=== PATIENT | male | born 1945 ===

== ENCOUNTER → 2020-09-09 14:36 | Outpatient (BNVA) | payer OTHER, SELFPAY | PROVIDERS: PCP Internal Medicine; Visit Provider Urology | DX: Z76.89 Persons encountering health services in other specified circumstances (principal) ==

== ENCOUNTER 2021-10-02 10:53 | Outpatient (REF) | payer OTHER, SELFPAY ==
[2021-10-02 13:45] LABS: Prostate Specific Antigen 3.33 ng/mL (<0.05-4.0)
== END 2021-10-02 10:54 | disposition home or self-care (01) ==
LOC: HO.HMGCLDS 10:53
PROVIDERS: PCP Internal Medicine; Visit Provider Urology
DX: R97.20 Elevated prostate specific antigen [PSA] (principal); Z12.5 Encounter for screening for malignant neoplasm of prostate
CPT/HCPCS: 36415; 84153

== ENCOUNTER 2023-11-10 12:59 | Outpatient (AMB) | payer OTHER, SELFPAY ==
--- NOTE | 2023-11-10 13:16 | A.OFFVIS_ITS ---
Intake Intake Visit Reasons: Elevated PSA/BPH(3.89) (Confirmed) Intake Note: Patient presents today for a follow-up Meds- Finasteride, Sildenafil Allergies to Antibiotic- No Known Allergies Blood Thinner- None Post Void Residual: >404ml Patient Symptoms: Patient does not feel the urgency to pee, eventhough he has full bladder. Animal Control Officer Required: No Accompanied by: Self / Same As Patient Allergies lisinopril Allergy (Unknown, Verified 11/10/23 13:29) Unknown metformin Allergy (Unknown, Verified 11/10/23 13:29) Unknown nifedipine Allergy (Unknown, Verified 11/10/23 13:29) Unknown HPI HPI Comments History of Present Illness Details Hao is a pleasant male. He is a patient of Dr Dong Darnell. Seen for the following urologic conditions - lower urinary tract symptoms - elevated PSA Twelve month review BPH and PSA Prior elevated PSA fallen with finasteride High residual today 400 cc Trial bethanechol with follow-up cystoscopy feels he is getting empty Longstanding diabetic since age 52 Elevated PSA/Abnormal VINCENT: He presents for further evaluation of elevated PSA. Prior management is medication with 5AR - stopped secondary to concern regarding libido Laboratory investigations include 07/29 Done at [place] , a total PSA evaluation 10 09/29 6.7 25%, 11/27 4.4 11/27 US - 80gm prostate 120cc residual, 06/29 3.4 - 07/31 3.2 Indiviudalized Prostate Cancer Risk Calculator >10% high risk. Symptoms include 09/29 , incomplete emptying, weak stream, nocturia, x 3, and are worsening 12/28 , incomplete emptying, weak stream, nocturia, and are improving. Overall symptoms are mild. Associated conditions diabetes Yes dyslipidemia Yes dysuria No erectile dysfunction Yes hematuria No hypertension No prostatitis No renal insufficieny No urinary retention No urinary tract infections No Therapeutic plan will be continued surveillance - yearly PSA review. Review of Systems Const Denies chills and Denies fever(s) Card Reports no additional complaints and Denies syncope Resp Denies cough GI Denies abdominal pain and Denies heartburn Reports as per HPI and Denies change in libido Neuro Denies syncope Psych Denies change in libido Endo Denies change in libido Physical Exam Const General: cooperative, healthy appearing, comfortable and no acute distress Orientation/consciousness: patient oriented x3 HEENT Face and sinus: Yes normal facial exam Mouth: moist mucous membranes Neck Neck: Yes normal visual inspection, Yes full ROM and Yes trachea midline Chest Chest palpation & inspection: normal inspection of the chest Resp Effort & Inspection: normal respiratory effort, able to speak in complete sentences and no respiratory distress GI Inspection: Yes normal to inspection Back/Spine/Pelvis Cervical Spine: normal cervical lordosis Thoracic/Lumbar Spine: thoracic and lumbar spine normal to inspection Skin General skin exam: no rashes or lesions noted Neuro General: patient oriented x3, gait normal, tone normal and moves all extremities Extrem General: Yes normal to inspection and Yes capillary refill normal Office Procedures Post Void Residual Post Residual Void Post Void Residual (PVR): 404 [id number]-Blhq Void Residual by ultrasound Assessment & Plan Assessment & Plan (1) Elevated PSA: Code(s): R97.20 - Elevated prostate specific antigen [PSA] (2) Incomplete emptying of bladder due to benign prostatic hyperplasia: Code(s): N40.1 - Benign prostatic hyperplasia with lower urinary tract symptoms; R33.9 - Retention of urine, unspecified Plan Trial bethanechol Follow-up cysto with PVR Orders: Orders AMB Post Void Residual by ultrasound Today R33.9 - Retention of urine, unspecified Medications: New bethanechol chloride 50 mg PO BID 30 days 60 tabs 1RF N39.0 - Urinary tract infection, site not specified, N40.1 - Benign prostatic hyperplasia with lower urinary tract symptoms, R33.9 - Retention of urine, unspecified Patient Instructions: Imaging studies, laboratory and physical exam results were discussed and reviewed in detail. No major barriers to patient understanding were identified. An opportunity to ask questions regarding the treatment plan was provided. All questions were answered. The patient expressed understanding and agreement with the above treatment plan. The patient is aware they should contact our office by phone for worsening of their current condition or the appearance of new urologic symptoms. Compliance is encouraged with any medications and followup testing that is ordered. It is a privilege to participate in the urologic care of your patient. If you have any questions or concerns regarding treatment for the above conditions, or other urologic issues, please do not hesitate to contact me. The office telephone contact is [phone]. This note is constructed using voice recognition software. While every effort has been made to ensure accuracy game show host errors may have been included. Yours sincerely, Dr Mayank Mccurdy MD, [facility] - Urology Providers of Expert, Compassionate Care for the Genitourinary System Coding Level of Care Code Est Pt Level 4 (15607) Diagnoses Elevated PSA R97.20 Incomplete emptying of bladder due to benign prostatic hyperplasia N40.1; R33.9 CPT Codes Post Residual Void - PVR CPT Code: 98439-Jdmf Void Residual by ultrasound ([id number])
== END 2023-11-10 13:38 | disposition home or self-care (01) ==
PROVIDERS: PCP Internal Medicine; Referring Provider Internal Medicine; Visit Provider Urology
DX: R97.20 Elevated prostate specific antigen [PSA] (principal); N40.1 Benign prostatic hyperplasia with lower urinary tract symptoms; R33.9 Retention of urine, unspecified
CPT/HCPCS: 99214

== ENCOUNTER → 2023-11-10 12:59 | Outpatient (BNVA) | payer OTHER, SELFPAY | PROVIDERS: PCP Internal Medicine; Visit Provider Urology | DX: N40.1 Benign prostatic hyperplasia with lower urinary tract symptoms (principal); R33.9 Retention of urine, unspecified; R97.20 Elevated prostate specific antigen [PSA] | CPT/HCPCS: 51798; 99212 ==

== ENCOUNTER 2024-01-11 09:50 | Outpatient (AMB) | payer OTHER, SELFPAY ==
--- NOTE | 2024-01-11 09:57 | A.OFFVIS_ITS ---
Intake Visit Reasons: cysto/PVR Intake Note: Patient is Present for Cystoscopy Urology Med: Finasteride, Bethanechol Antibiotic Allergy:none Blood Thinner: None URO- G Disposable Cystoscope lot: [id number] exp:07/20/26 Last PVR: 404 Todays: 291 Allergies lisinopril Allergy (Unknown, Verified 11/10/23 13:29) Unknown metformin Allergy (Unknown, Verified 11/10/23 13:29) Unknown nifedipine Allergy (Unknown, Verified 11/10/23 13:29) Unknown Medication List - Last Reconciled 01/11/24 by Mayank Mccurdy MD amlodipine 2.5 mg PO DAILY bethanechol chloride 50 mg PO BID 30 days finasteride 5 mg PO DAILY fluoxetine 20 mg PO DAILY fluticasone propionate 50 mcg/actuation sprays intranasal hydrochlorothiazide 25 mg PO DAILY insulin glargine units subcut insulin glargine units subcut lifitegrast 5% 1 drp ophthalmic (eye) BID pen needle, diabetic As directed prednisolone acetate 1% 1 drp ophthalmic (eye) QID semaglutide mg subcut sildenafil mg PO valsartan 320 mg PO DAILY HPI Comments Details: Hao is a pleasant male. He is a patient of Dr Rodrigez. Seen for the following urologic conditions - lower urinary tract symptoms - elevated PSA Cystoscopy following initiation of bethanechol PVR has dropped from over 400 to under 300 He thinks bethanechol has improved emptying Trial bethanechol with follow-up cystoscopy feels he is getting empty Longstanding diabetic since age 52 Elevated PSA/Abnormal VINCENT: He presents for further evaluation of elevated PSA. Prior management is medication with 5AR - stopped secondary to concern regarding libido Laboratory investigations include 07/29 Done at [place] , a total PSA evaluation 09/29 6.7 25%, 11/27 4.4 11/27 US - 80gm prostate 120cc residual, 06/29 3.4 - 07/31 3.2 Indiviudalized Prostate Cancer Risk Calculator >10% high risk. Symptoms include 09/29 , incomplete emptying, weak stream, nocturia, x 3, and are worsening 12/28 , incomplete emptying, weak stream, nocturia, and are improving. Overall symptoms are mild. Associated conditions diabetes Yes dyslipidemia Yes dysuria No erectile dysfunction Yes hematuria No hypertension No prostatitis No renal insufficieny No urinary retention No urinary tract infections No Therapeutic plan will be continued surveillance - yearly PSA review. Review of Systems Const Denies chills and Denies fever(s) Card Reports no additional complaints and Denies syncope Resp Denies cough GI Denies abdominal pain and Denies heartburn Reports as per HPI and Denies change in libido Neuro Denies syncope Psych Denies change in libido Endo Denies change in libido Physical Exam Const General: cooperative, healthy appearing, comfortable and no acute distress Orientation/consciousness: patient oriented x3 HEENT Face and sinus: Yes normal facial exam Mouth: moist mucous membranes Neck Neck: Yes normal visual inspection, Yes full ROM and Yes trachea midline Chest Chest palpation & inspection: normal inspection of the chest Resp Effort & Inspection: normal respiratory effort, able to speak in complete sentences and no respiratory distress GI Inspection: Yes normal to inspection Back/Spine/Pelvis Cervical Spine: normal cervical lordosis Thoracic/Lumbar Spine: thoracic and lumbar spine normal to inspection Skin General skin exam: no rashes or lesions noted Neuro General: patient oriented x3, gait normal, tone normal and moves all extremities Extrem General: Yes normal to inspection and Yes capillary refill normal Office Procedures Cystoscopy Consent Discussed risk and benefit or proposed procedure with the patient. Information consent for procedure given to the patient. Discussed technical aspects, risks, benefits and alternatives in full. Addressed all of the patient's questions and concerns regarding the procedure. The patient demonstrated knowledge and understanding. They wish to proceed with this procedure. Preparation The patient was prepped in the usual manner. A elastic attacher overlock was present and in the room. Genitalia was prepped with betadine solution in a sterile manner. Lidocaine Jelly 2% was placed into the urethra and 16Fr flexible Olympus cystoscope was inserted into the meatus after adequate lubrication. Procedure Cystoscopy performed using a disposable Urovue digital 16 English cystoscope. Meatus uncircumcised Urethra anterior and posterior within normal Prostatic Urethra trilobar hypertrophy Bladder examination with retroflexion of cystoscope Bladder Orifices normal shape and position Bladder Capacity large Trabeculations grade 2 Cellule Formation yes Diverticulum Formation - Mucosal Erythema - Bladder Tumor - 43321-[id number] DISPOSABLE SCOPE URO-G FLEXIBLE SCOPE Procedure code (CPT) selection complete Post Void Residual Post Residual Void Post Void Residual (PVR): 291 [id number] Void Residual by ultrasound Office Meds lidocaine HCl 2 % mucosal jelly in applicator Performing Provider: Mayank Mccurdy MD Performing Location: [facility] Administered by: Jacqueline Groves RN on 01/11/24 10:17 Dose Route Admin Location Dispensed Lot Number Expiration Date [employer] 10 mL intra-urethral 10 mL nitrofurantoin monohydrate/macrocrystals 100 mg capsule Performing Provider: Mayank Mccurdy MD Performing Location: [facility] Administered by: Jacqueline Groves RN on 01/11/24 10:17 Dose Route Admin Location Dispensed Lot Number Expiration Date [employer] 100 mg PO 1 cap naproxen 500 mg tablet Performing Provider: Mayank Mccurdy MD Performing Location: [facility] Administered by: Jacqueline Groves RN on 01/11/24 10:17 Dose Route Admin Location Dispensed Lot Number Expiration Date [employer] 500 mg PO 1 tab Results AMB Urinalysis, Automated UA Leukoctes 70 Tejal/uL Last Edit by VIVIAN Chen on 01/11/24 10:14 UA Nitrite Negative Last Edit by Megha Arango [facility] on 01/11/24 10:14 UA Urobilinogen 0.2 mg/dL Last Edit by VIVIAN Chen on 01/11/24 10:1 4 UA Protein 0 mg/dL Last Edit by Megha Arango [facility] on 01/11/24 10:14 UA pH 6.0 Last Edit by Megha Arango [employer] on 01/11/24 10:14 UA Blood 0 Josue/uL Last Edit by Megha Arango [facility] on 01/11/24 10:14 UA Specific [place] 1.015 Last Edit by Megha Arango [facility] on 01/11/24 10: 14 UA Ketone Negative Last Edit by VIVIAN Chen on 01/11/24 10:14 UA Bilirubin 0 mg/dL Last Edit by Megha Arango [facility] on 01/11/24 10:14 UA Glucose 0 mg/dL Last Edit by RAYMOND Chen on 01/11/24 10:14 Results Reviewed Results Reviewed: Laboratory Last Values Urine pH (Auto) 6.0 01/11/24 10:10 Specific [place] (Auto) 1.015 01/11/24 10:10 Urine Protein (Auto) 0 mg/dL 01/11/24 10:10 Glucose (UA)(Auto) 0 mg/dL 01/11/24 10:10 Urine Ketones (Auto) Negative 01/11/24 10:10 Urine Blood (Auto) 0 Josue/uL 01/11/24 10:10 Urine Nitrite (Auto) Negative 01/11/24 10:10 Urine Bilirubin (Auto) 0 mg/dL 01/11/24 10:10 Urine Urobilinogen (Auto) 0.2 mg/dL 01/11/24 10:10 Leukocyte Esterase (Auto) 70 Tejal/uL 01/11/24 10:10 Assessment & Plan Assessment & Plan (1) Incomplete emptying of bladder due to benign prostatic hyperplasia: Code(s): N40.1 - Benign prostatic hyperplasia with lower urinary tract symptoms; R33.9 - Retention of urine, unspecified Category: Medical (2) BPH w urinary obs/LUTS: Code(s): N40.1 - Benign prostatic hyperplasia with lower urinary tract symptoms; N13.8 - Other obstructive and reflux uropathy Category: Medical (3) Weak urinary stream: Code(s): R39.12 - Poor urinary stream Category: Medical Plan We discussed the nature of the decision and reasonable options for performing a prostate intervention. Interventions include TURP, GreenLight laser enucleation of the prostate, GreenLight laser ablation of the prostate, transurethral incision of the prostate, and I-Tend prostate procedure. Options such as medical therapy were discussed. The relative uncertainties and benefits related to each alternate procedure were adequately discussed. General surgical risks including, but not limited to, pain, bleeding, infection, myocardial infarction, pulmonary embolus, deep vein thrombosis and cerebrovascular accident which may result in further hospitalization were discussed. Full disclosure of the procedure as well as all major risks, benefits and complications were discussed including but not limited to damage to the urethra or bladder neck, recurrent BPH, retrograde ejaculation, bladder infection, urge, de patricio frequency, incomplete emptying, dysuria, remote chance of erectile dysfunction, epididymitis, and meatal stenosis. The success rate of the procedure was discussed. Success of the procedure in the short-term does not necessarily guarantee that long-term success will be maintained. Suitable follow up will need to be maintained. The patient showed understanding of discussion. An opportunity was provided for questions to be answered and wishes to proceed with the following procedure. - GreenLight laser prostate Orders: Orders AMB Urinalysis Automated Today Z13.9 - Encounter for screening, unspecified AMB Cystoscopy Today N40.1 - Benign prostatic hyperplasia with lower urinary tract symptoms, R33.9 - Retention of urine, unspecified AMB Post Void Residual by ultrasound Today N40.1 - Benign prostatic hyperplasia with lower urinary tract symptoms, R33.9 - Retention of urine, unspecified US bladder Today N40.1 - Benign prostatic hyperplasia with lower urinary tract symptoms, R33.9 - Retention of urine, unspecified, R39.12 - Poor urinary stream Medications: Changed From bethanechol chloride 50 mg PO BID 30 days 60 tabs 1RF N39.0 - Urinary tract infection, site not specified, N40.1 - Benign prostatic hyperplasia with lower urinary tract symptoms, R33.9 - Retention of urine, unspecified To bethanechol chloride 50 mg PO BID 90 days 180 tabs 1RF N39.0 - Urinary tract infection, site not specified, N40.1 - Benign prostatic hyperplasia with lower urinary tract symptoms, R33.9 - Retention of urine, unspecified Patient Instructions: Imaging studies, laboratory and physical exam results were discussed and reviewed in detail. No major barriers to patient understanding were identified. An opportunity to ask questions regarding the treatment plan was provided. All questions were answered. The patient expressed understanding and agreement with the above treatment plan. The patient is aware they should contact our office by phone for worsening of their current condition or the appearance of new urologic symptoms. Compliance is encouraged with any medications and followup testing that is ordered. It is a privilege to participate in the urologic care of your patient. If you have any questions or concerns regarding treatment for the above conditions, or other urologic issues, please do not hesitate to contact me. The office telephone contact is [phone]. This note is constructed using voice recognition software. While every effort has been made to ensure accuracy boiler installer errors may have been included. Yours sincerely, Dr Mayank Mccurdy MD, [facility] - Urology Providers of Expert, Compassionate Care for the Genitourinary System Coding Level of Care Code Est Pt Level 4 (93704) Diagnoses Incomplete emptying of bladder due to benign prostatic hyperplasia N40.1; R33.9 BPH w urinary obs/LUTS N40.1; N13.8 Weak urinary stream R39.12 CPT Codes Cystoscopy - CPT: 23034-Izmqiaxdpy ([id number]) Post Residual Void - PVR CPT Code: 02875-Rcof Void Residual by ultrasound ([id number])
== END 2024-01-11 10:47 | disposition home or self-care (01) ==
PROVIDERS: PCP Internal Medicine; Visit Provider Urology
DX: N40.1 Benign prostatic hyperplasia with lower urinary tract symptoms (principal); R33.9 Retention of urine, unspecified; N13.8 Other obstructive and reflux uropathy; R39.12 Poor urinary stream; Z13.9 Encounter for screening, unspecified
CPT/HCPCS: 52000; 99213

== ENCOUNTER → 2024-01-11 09:50 | Outpatient (BNVA) | payer OTHER, SELFPAY | PROVIDERS: PCP Internal Medicine; Visit Provider Urology | DX: N40.1 Benign prostatic hyperplasia with lower urinary tract symptoms (principal); N13.8 Other obstructive and reflux uropathy; R33.8 Other retention of urine; R39.12 Poor urinary stream | CPT/HCPCS: 51798; 52000; 81003; 99212 ==

== ENCOUNTER 2024-01-30 15:13 | Outpatient (REF) | payer OTHER, SELFPAY | END 2024-01-30 15:14 | disposition home or self-care (01) | LOC: HO.US 15:13 | PROVIDERS: PCP Internal Medicine; Visit Provider Urology | DX: Z13.89 Encounter for screening for other disorder (principal) ==

== ENCOUNTER 2024-02-15 12:57 | Outpatient (REF) | payer OTHER, SELFPAY ==
--- NOTE | ~2024-02-15 | US_ITS ---
EXAMINATION: US PELVIS LIMITED (BLADDER) CLINICAL INFORMATION: Poor urinary stream. COMPARISON: Ultrasound urinary bladder 09/18/2018. TECHNIQUE: Real-time imaging of the bladder. FINDINGS: BLADDER: Well distended. Bilateral ureteral jets are demonstrated. Prevoid bladder volume is 562 mL. Postvoid bladder volume is 570 mL. There is diffuse thickening and irregularity of the bladder wall with innumerable diverticula.Complex low-level internal echoes within the bladder characteristic of debris. Prostate: Enlarged, volume 75.2 mL. US/US bladder IMPRESSION: 1. Diffuse thickening and irregularity of the bladder wall with innumerable diverticula. Complex low-level internal echoes within the bladder characteristic of debris. 2. Enlarged prostate gland. 3. Postvoid bladder volume 570 mL.
== END 2024-02-15 12:58 | disposition home or self-care (01) ==
LOC: HO.US 12:57
PROVIDERS: PCP Internal Medicine; Visit Provider Urology
DX: R39.12 Poor urinary stream (principal); N40.1 Benign prostatic hyperplasia with lower urinary tract symptoms; R33.9 Retention of urine, unspecified
CPT/HCPCS: 76857

== ENCOUNTER 2024-03-06 10:54 | Outpatient (AMB) | payer OTHER, SELFPAY ==
--- NOTE | 2024-03-06 10:54 | A.OFFVIS_ITS ---
Intake Visit Reasons: H&P Greenlight Intake Note: Patient presents as a telehealth visit for H&P Greenlight Urology Med: Finasteride, Bethanechol Antibiotic Allergy:none Blood Thinner: None Allergies lisinopril Allergy (Unknown, Verified 03/06/24 10:54) Unknown metformin Allergy (Unknown, Verified 03/06/24 10:54) Unknown nifedipine Allergy (Unknown, Verified 03/06/24 10:54) Unknown HPI Comments Details: Hao is a pleasant male. He is a patient of Dr Rodrigez. Seen for the following urologic conditions - lower urinary tract symptoms - elevated PSA Telemedicine Evaluation 15 min Consultation DoxTinybop Dinesh Video Bethanechol improved emptying Plan for prostate procedure Questions answered Elevated PSA/Abnormal VINCENT: He presents for further evaluation of elevated PSA. Prior management is medication with 5AR - stopped secondary to concern regarding libido Laboratory investigations include 07/29 Done at [place] , a total PSA sonia luation 10 09/29 6.7 25%, 11/27 4.4, 11/27 US - 80gm prostate 120cc residual, 06/29 3.4, 07/31 3.2, 10/02 3.3 Individualized Prostate Cancer Risk Calculator >10% high risk. Symptoms include 09/29 , incomplete emptying, weak stream, nocturia, x 3, and are worsening 12/28 , incomplete emptying, weak stream, nocturia, and are improving. Overall symptoms are mild. Associated conditions diabetes Yes dyslipidemia Yes dysuria No erectile dysfunction Yes Therapeutic plan will be continued surveillance - yearly PSA review. Review of Systems Const All systems reviewed & are unremarkable except as noted in HPI and below Reports no additional complaints Resp Reports no additional complaints GI Reports no additional complaints Reports as per HPI Musc Reports no additional complaints Physical Exam Telemedicine evaluation Appropriate responses Regular breathing rate and rhythm HEENT Head: Yes normal to inspection Ears: hearing grossly normal bilaterally Eyes General: appearance normal, both eyes and all related structures Neck Neck: Yes normal visual inspection Chest Chest palpation & inspection: normal inspection of the chest Resp Effort & Inspection: normal respiratory effort and able to speak in complete se ntences Telehealth Telehealth Telehealth Platform: [employer] Location of provider rendering services: practice address Location of patient: address on file Patient Identification confirmed using: Name, : Yes Telehealth method: video Patient verbally consented to treatment: Yes Patient verbally consented to billing insurance company: Yes Patient informed of any privacy concerns related to visit: Yes Minutes spent on Phone/Video with Pt.: 15 Assessment & Plan Assessment & Plan (1) Elevated PSA: Code(s): R97.20 - Elevated prostate specific antigen [PSA] Category: Medical (2) BPH w urinary obs/LUTS: Code(s): N40.1 - Benign prostatic hyperplasia with lower urinary tract symptoms; N13.8 - Other obstructive and reflux uropathy Category: Medical (3) Incomplete emptying of bladder due to benign prostatic hyperplasia: Code(s): N40.1 - Benign prostatic hyperplasia with lower urinary tract symptoms; R33.9 - Retention of urine, unspecified Category: Medical Plan Risks, benefits and alternatives to therapy were discussed. These include but are not limited to infection, bleeding, damage to local organs and tissues, need for further interventions. Anesthetic risks regarding cardiac arrhythmia, blood clots, and potential mortality were discussed. The patient understands the typical recovery time and the outpatient nature of the procedure. After consideration of these risks the patient gives full informed consent and they wish to move ahead with the procedure. Plan GreenLight laser prostatectomy Patient Instructions: Imaging studies, laboratory and physical exam results were discussed and reviewed in detail. No major barriers to patient understanding were identified. An opportunity to ask questions regarding the treatment plan was provided. All questions were answered. The patient expressed understanding and agreement with the above treatment plan. The patient is aware they should contact our office by phone for worsening of their current condition or the appearance of new urologic symptoms. Compliance is encouraged with any medications and followup testing that is ordered. It is a privilege to participate in the urologic care of your patient. If you have any questions or concerns regarding treatment for the above conditions, or other urologic issues, please do not hesitate to contact me. The office telephone contact is [phone]. This note is constructed using voice recognition software. While every effort has been made to ensure accuracy sales development manager errors may have been included. Yours sincerely, Dr Mayank Mccurdy MD, [facility] - Urology Providers of Expert, Compassionate Care for the Genitourinary System Coding Level of Care Code Tele Est Pt Level 3 (36683) Diagnoses Elevated PSA R97.20 BPH w urinary obs/LUTS N40.1; N13.8 Incomplete emptying of bladder due to benign prostatic hyperplasia N40.1; R33.9
== END 2024-03-06 13:08 | disposition home or self-care (01) ==
LOC: HO.HUSH 10:54
PROVIDERS: PCP Internal Medicine; Referring Provider Internal Medicine; Visit Provider Urology
DX: R97.20 Elevated prostate specific antigen [PSA] (principal); N40.1 Benign prostatic hyperplasia with lower urinary tract symptoms; N13.8 Other obstructive and reflux uropathy; R33.9 Retention of urine, unspecified
CPT/HCPCS: 99213

== ENCOUNTER → 2024-03-06 10:54 | Outpatient (BNVA) | payer OTHER, SELFPAY | PROVIDERS: PCP Internal Medicine; Visit Provider Urology ==

== ENCOUNTER 2024-03-25 08:31 | Day surgery (SDC) | payer OTHER, SELFPAY ==
[2024-03-20 10:50] VITALS: BP 192/96
[2024-03-21 13:05] VITALS: BMI 27.9
--- NOTE | 2024-03-21 13:26 | HO.ANESPROP2 ---
Documented by User: Dianelys Gallegos NP 03/22/24 11:46 HPI - Anesthesia Eval Consult details Narrative: 79yo M for Laser Ablation Prostate w/Green Light Follows [facility] cardiology. Per last office note 06/2023: [facility]38 bpm?noted on ZIO on 11/02/2022 at 4:43 PM, multiple pauses up to 3.4 seconds while still on BB. He was seen in the hospital with Helen 1 year ago and it was suggested that he cut back on BB and follow. He has a repeat zio which showed some possible 10 seconds CH vs 2:1. He has no cardiac sx. He has chronic?AU which is unchanged. He associates this with panic attacks and increased bp. ?No presyncope or syncope. No CP or dyspnea, no palpitations. We repeated zio off meds reviewed with EPS, some transient 2:1 and CHB during sleep felt to be sleep apnea. he is asx at this time. Anesthesia Pre-Procedure Meds Is the patient on any of the following meds?: GLP1/DPP4 and SGLT2 Inhib PMFSH Active Problems Active Problems: All Active Problems Incomplete emptying of bladder due to benign prostatic hyperplasia (Acute) Elevated PSA (Acute) Weak urinary stream (Acute) BPH w urinary obs/LUTS (Acute) Past Medical History Medical History (Updated 03/21/24 @ 13:11 by Smita Sharif RN) Vitamin D deficiency Venous insufficiency (chronic) (peripheral) Contact dermatitis Diabetes Sleep apnea Malignant neoplasm skin of nose Male erectile dysfunction, unspecified Localized swelling, mass and lump, head Hyperlipidemia GERD (gastroesophageal reflux disease) Epistaxis Depression Bradycardia BPH (benign prostatic hyperplasia) 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, second degree Actinic keratosis Anxiety Social History Social History Patient Tobacco Use Status: Former Tobacco user Use of substances other than those prescribed or required for medical reasons: No Are you DNR?: No Advance Directives: No Advance Directives Information Provided: Yes Meds Allergies Allergy/AdvReac Type Severity Reaction Status Date / Time lisinopril Allergy Unknown Unknown Verified 03/06/24 10:54 metformin Allergy Unknown Unknown Verified 03/06/24 10:54 nifedipine Allergy Unknown Unknown Verified 03/06/24 10:54 epinephrine AdvReac Intermediate Tachycardia Verified 03/25/24 10:15 Home Medications ?Medication ?Instructions ?Recorded ?Confirmed ?Last Taken ?Type fluticasone propionate 50 1 spray intranasal DAILY 09/09/20 03/25/24 Unknown History mcg/actuation nasal spray,suspension insulin glargine 100 unit/mL (3 18 unit subcut DAILY 09/09/20 03/25/24 03/24/24 History mL) subcutaneous pen lifitegrast 5 % eye drops in a 1 drp ophthalmic (eye) BID 09/09/20 03/25/24 Unknown History dropperette pen needle, diabetic 31 gauge x #50 ea 09/09/20 01/11/24 Unknown History 3/16 prednisolone acetate 1 % eye 1 drp ophthalmic (eye) QID 09/09/20 03/25/24 Unknown History drops,suspension semaglutide 0.25 mg or 0.5 mg (2 2 mg subcut QWEEK 09/09/20 03/25/24 03/18/24 History mg/1.5 mL) subcutaneous pen injector sildenafil 100 mg tablet 100 mg PO ONCE PRN Sexual Activity 09/09/20 03/25/24 Unknown History valsartan 320 mg tablet 320 mg PO DAILY 09/09/20 03/25/24 03/25/24 07:00 History chlorthalidone 25 mg tablet 25 mg PO DAILY 03/21/24 03/25/24 Unknown History clonidine HCl 0.1 mg tablet 0.1 mg PO DAILY 03/21/24 03/25/24 Unknown History insulin aspart U-100 100 unit/mL 1 sliding scale dose subcut 03/21/24 03/25/24 Unknown History (3 mL) subcutaneous pen USEASDIRECTD lorazepam 0.5 mg tablet 0.5 mg PO DAILY PRN Anxiety 03/21/24 03/25/24 Unknown History Exam Height,Weight and Vital Signs: Height 5 ft 7 in Weight 80.739 kg Pertinent Lab Results Pertinent Lab Results: CBC and BMP 10/2023 from outside facility WNL Narrative Narrative: EKG 09/2023 Ventricular Rate: 91 BPM Atrial Rate: 119 BPM QRS Duration: 90 ms Q-T Interval: 326 ms QTC Calculation(Bazett): 400 ms R [place]: -34 degrees T [place]: 74 degrees Sinus tachycardia with 2nd degree A-V block (Mobitz I) with occasional premature ventricular complexeses Left axis deviation Abnormal ECG When compared with ECG of 09-JAN-2023 11:02, Second degree AV block has replaced 1st degree A-V block Premature ventricular complexes are now Present Confirmed by ESSIE BARNES, CHRISTIANO ([id number]) on 10/15/2023 3:30:13 PM Assessment and Plan Assessment Anesthesia Assessment: Chart Reviewed Documented by User: Roland Snow MD 03/25/24 11:09 [facility] Past Medical History Medical History (Updated 03/21/24 @ 13:11 by Smita Sharif RN) Vitamin D deficiency Venous insufficiency (chronic) (peripheral) Contact dermatitis Diabetes Sleep apnea Malignant neoplasm skin of nose Male erectile dysfunction, unspecified Localized swelling, mass and lump, head Hyperlipidemia GERD (gastroesophageal reflux disease) Epistaxis Depression Bradycardia BPH (benign prostatic hyperplasia) 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, second degree Actinic keratosis Anxiety Family History Family history of problems with anesthesia: No Surgical History History of Problems with Anesthesia: No Social History Social History Patient Tobacco Use Status: Former Tobacco user Use of substances other than those prescribed or required for medical reasons: No Are you DNR?: No Advance Directives: No Advance Directives Information Provided: Yes Meds Allergies Allergy/AdvReac Type Severity Reaction Status Date / Time lisinopril Allergy Unknown Unknown Verified 03/06/24 10:54 metformin Allergy Unknown Unknown Verified 03/06/24 10:54 nifedipine Allergy Unknown Unknown Verified 03/06/24 10:54 epinephrine AdvReac Intermediate Tachycardia Verified 03/25/24 10:15 Home Medications ?Medication ?Instructions ?Recorded ?Confirmed ?Last Taken ?Type fluticasone propionate 50 1 spray intranasal DAILY 09/09/20 03/25/24 Unknown History mcg/actuation nasal spray,suspension insulin glargine 100 unit/mL (3 18 unit subcut DAILY 09/09/20 03/25/2424 History mL) subcutaneous pen lifitegrast 5 % eye drops in a 1 drp ophthalmic (eye) BID 09/09/20 03/25/24 Unknown History dropperette pen needle, diabetic 31 gauge x #50 ea 09/09/20 01/11/24 Unknown History 3/16 prednisolone acetate 1 % eye 1 drp ophthalmic (eye) QID 09/09/20 03/25/24 Unknown History drops,suspension semaglutide 0.25 mg or 0.5 mg (2 2 mg subcut QWEEK 09/09/20 03/25/24 03/18/24 History mg/1.5 mL) subcutaneous pen injector sildenafil 100 mg tablet 100 mg PO ONCE PRN Sexual Activity 09/09/20 03/25/24 Unknown History valsartan 320 mg tablet 320 mg PO DAILY 09/09/20 03/25/24 03/25/24 07:00 History chlorthalidone 25 mg tablet 25 mg PO DAILY 03/21/24 03/25/24 Unknown History clonidine HCl 0.1 mg tablet 0.1 mg PO DAILY 03/21/24 03/25/24 Unknown History insulin aspart U-100 100 unit/mL 1 sliding scale dose subcut 03/21/24 03/25/24 Unknown History (3 mL) subcutaneous pen USEASDIRECTD lorazepam 0.5 mg tablet 0.5 mg PO DAILY PRN Anxiety 03/21/24 03/25/24 Unknown History Exam Airway Mallampati Class: I TM Dist: <=3cm Neck ROM: Full Loose/Missing/Broken Teeth: No Heart: ok Lungs: ok Assessment and Plan Assessment Anesthesia Assessment: Anesthesia Plan Discussed Final Anesthetic Review Family History of Problems with Anesthesia: No History of Problems with Anesthesia: No NPO: Yes ASA Class: III Final Preanesthetic Review: No Changes in Pt Med Stat, Meds/Allgs Chart Reviewed, Consent Obtained/Reviewed and Anes Risks/Benef Reviewed Patient Risk: Intermediate Procedure Risk: Low Anesthetic Plan Anesthetic Plan: GA and Agree w/ Assess. and Plan Disposition: Standard PACU
[2024-03-25] VITALS (7 sets, daily range): BP systolic 152–211; BP diastolic 71–103; PULSE 56–90; RESP 16–23; TEMP 36.1–37.1; O2SAT 94–99; BMI 26.0
--- NOTE | 2024-03-25 10:24 | P.HPSUR_ITS ---
Pre-Procedural Eval Section A - 24 Hr Update-Section A only Date of Service: 03/25/24 The patient is an INPATIENT: No Changes since office visit: No Cold of Flu in the past 2 weeks, No New Medical Problems, No Changes in Medication and No Patient answered all questions The patient has been examined within 24 hours of the surgical procedure. The History & Physical has been completed within 30 days and I have reviewed it.: Yes Section B - Complete if H&P > 30 days Chief Complaint: Benign prostatic hyperplasia with lower urinary tr Details of Present Illness: 75 g prostate Relevant Social History: None Present Medications: see Short Stay Collaborative assessment Medical History: No relevant PMH History of Previous Operations: No relevant previous surgery Allergies: Allergies Allergy/AdvReac Type Severity Reaction Status Date / Time lisinopril Allergy Unknown Unknown Verified 03/06/24 10:54 metformin Allergy Unknown Unknown Verified 03/06/24 10:54 nifedipine Allergy Unknown Unknown Verified 03/06/24 10:54 epinephrine AdvReac Intermediate Tachycardia Verified 03/25/24 10:15 Review of Systems Sugical H&P ROS: Negative: Constitution, Cardiovascular, Respiratory, Neurologi omaira, Psychiatric, Hem-Onc, Allergic/Immunologic, Gastrointestinal, Genitourinary, Musculoskeletal, Integumentary, Endocrine and Eyes/Ears/Nose/Throat Exam Surgical H&P Exam: Normal: HEENT, Normal: Heart, Normal: Lungs, Normal: Extremities, Normal: Abdomen, Normal: Skin and Normal: Neurological Plan Diagnosis/Plan: Unchanged (Bladder outlet obstruction) I have reviewed the history and physical and performed a pertinent physical examination on my patient. No changes have occurred unless specified. Time Spent With Patient Time: Total time managing care of this patient today ____ minutes.
[2024-03-25] MEDS: Lactated Ringers 1,000 ML 100 ML IVCONT (10:44)
--- NOTE | 2024-03-25 12:06 | W.PM.OPN ---
Operative Note Operative Note Date of Service: 03/25/24 Narrative: PreOperative Diagnosis: Bladder outlet obstruction Post Operative Diagnosis: Bladder outlet obstruction Procedure: GreenLight Laser Enucleation of the prostate CPT 91076 Surgeon: Dr Mayank Mccurdy Anesthesia: General History of bladder outlet obstruction. Treated with alpha-ray and other medications. Still with symptoms. On cystoscopy in office has trilobar prostate. Recommendation for prostate procedure with laser enucleation of prostate. Risks and benefits have been discussed. Focus was placed on development of retrograde ejaculation which is a normal part of this procedure. Ultrasound 75 g prostate Procedure: After informed consent was verified the patient was brought to the operating room and placed in a supine position. Anesthesia was administered per protocol. Patient was placed in modified dorsal lithotomy position and prepped and draped in a sterile fashion. Safety pause time-out was confirmed. Antibiotics have been given. A Twenty-four Montenegrin laser cystoscope was inserted per urethra. No abnormalities were found of the anterior and bulbar urethra. The prostatic urethra shows trilobar hypertrophy The bladder was examined and both ureteric orifices were seen in their normal positions away from the area of interest. Bladder trabeculation grade 3 with cellules and small diverticula. Most prominent was right lateral lobe.. Using a GreenLight laser with settings of 80 romano incisions were made at the 5 and 7 o'clock position. The incisions were taken down from the bladder neck down to the level of the veru. These were gradually deepened in order to define the lateral aspects of the median lobe area. Once clearly defined they will also extended in the lateral directions in order to create a deep groove. The median lobe was then ablated and enucleated tissue released into the bladder with the laser power increased to 120 W. Once the median lobe area had been cleared attention was directed to the lateral lobes. Starting with the patient's left lateral lobe. First the 05:00 o'clock groove was further developed. This was moved in the lateral direction to undermine the tissue on the lateral side running from the bladder neck to the prostate apex. The ureteric orifice was used to guide incisions. Focus was then placed on the laser at the 1 o'clock position to developing a secondary groove down to the level of bladder fibers. The creation of a second deep groove defined a segment of intervening tissue similar to a slice of orange. At the apex of the prostate the 2 grooves were linked the us releasing the intervening tissue. This tissue was then removed with a combination of enucleation and ablation working from the apex toward the bladder neck. A similar procedure was repeated on the patient's right-hand side. The only differences being the position of the lateral groove at he 7 o'clock position and the secondary groove at the 11 o'clock position, Otherwise the procedure was developed in a mirror fashion. After the majority of tissue had been debulked remnant tissue was ablated with the side fire laser and the curve of the prostate followed up each side wall clearly defining the anterior remnant strip that remained between the 11 and 1 o'clock positions. In this case the anterior tissue protruded into the prostatic fossa and was partially ablated with the laser When this was had been completed debris and pieces of prostate were removed from the bladder with irrigation. Both ureteric orifices were reviewed again in shown to be patent in away from any areas of energy damage. The apical area was reviewed in any stray ooze was controlled. A 22 Montenegrin 30 cc balloon Alves catheter was placed over a stylet into the bladder. Clear efflux was obtained upon irrigation with a Charles piston syringe. 50 cc was placed in the balloon and gentle traction was placed. A snap was used to hold tension on the catheter to control bleeding during patient moved and transported. A drainage bag was placed. Once transportation is complete to the PACU the snap will be removed. The patient tolerated the procedure well, he was extubated in the operating and transferred in a stable condition to the recovery area. Total Power 199 kW Lasing time 30:19 Pathology: Prostate tissue Drains: Alves catheter
== END 2024-03-25 13:40 | disposition home or self-care (01) ==
PROVIDERS: PCP Internal Medicine; Visit Provider Urology
PROC: (CPT 52648; principal; 2024-03-25 10:30)
DX: N40.1 Benign prostatic hyperplasia with lower urinary tract symptoms (principal); N13.8 Other obstructive and reflux uropathy; R33.8 Other retention of urine; R97.20 Elevated prostate specific antigen [PSA]; N52.9 Male erectile dysfunction, unspecified; E11.9 Type 2 diabetes mellitus without complications; E78.5 Hyperlipidemia, unspecified; Z88.8 Allergy status to other drugs, medicaments and biological substances; Z79.899 Other long term (current) drug therapy
CPT/HCPCS: 52649; 88305; J1956; J2704; J3010

== ENCOUNTER → 2024-03-25 08:31 | Outpatient (BNV) | payer OTHER, SELFPAY | PROVIDERS: PCP Internal Medicine; Visit Provider Urology | DX: N40.1 Benign prostatic hyperplasia with lower urinary tract symptoms (principal) | CPT/HCPCS: 52649 ==

== ENCOUNTER → 2024-03-28 08:01 | Outpatient (BNVA) | payer OTHER, SELFPAY | PROVIDERS: PCP Internal Medicine; Visit Provider Urology | DX: N40.1 Benign prostatic hyperplasia with lower urinary tract symptoms (principal); N13.8 Other obstructive and reflux uropathy | CPT/HCPCS: 51700; 51798 ==

== ENCOUNTER 2024-05-01 13:25 | Outpatient (AMB) | payer OTHER, SELFPAY ==
--- NOTE | 2024-05-01 13:55 | MHC.OFFVIS ---
Intake Visit Reasons: Greenlight follow up(03/25) Intake Note: Patient Is Present for Post Op Follow up Procedure Done: Greenlight 03/25/24 Urology Med: Bethanechol, Finasteride Antibiotic Allergy:None Blood Thinner:none Last PVR: 291MLS PVR:98 Community Placement Worker Required: No Accompanied by: Self / Same As Patient Allergies lisinopril Allergy (Unknown, Verified 05/01/24 13:56) Unknown metformin Allergy (Unknown, Verified 05/01/24 13:56) Unknown nifedipine Allergy (Unknown, Verified 05/01/24 13:56) Unknown epinephrine Adverse Reaction (Intermediate, Verified 05/01/24 13:56) Tachycardia HPI Comments Details: Hao is a pleasant male. He is a patient of Dr Rodrigez. Seen for the following urologic conditions - lower urinary tract symptoms - elevated PSA Six week post prostate procedure PVR down under 100 cc Continue with bethanechol for 3 months GreenLight laser prostate - 04/03 May stop finasteride Continue bethanechol Three-month follow-up repeat PVR Elevated PSA/Abnormal VINCENT: He presents for further evaluation of elevated PSA. Prior management is medication with 5AR - stopped secondary to concern regarding libido Laboratory investigations include 07/29 Done at [place] , a total PSA evaluation 10 09/29 6.7 25%, 11/27 4.4, 11/27 US - 80gm prostate 120cc residual, 06/29 3.4, 07/31 3.2, 10/02 3.3 Individualized Prostate Cancer Risk Calculator >10% high risk. Symptoms include 09/29 , incomplete emptying, weak stream, nocturia, x 3, and are worsening 12/28 , incomplete emptying, weak stream, nocturia, and are improving. Overall symptoms are mild. Associated conditions diabetes Yes dyslipidemia Yes dysuria No erectile dysfunction Yes Therapeutic plan will be continued surveillance - yearly PSA review. 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, second degree Actinic keratosis Anxiety Social History Patient Tobacco Use Status: Former Tobacco user Review of Systems Const Denies chills and Denies fever(s) Card Reports no additional complaints and Denies syncope Resp Denies cough GI Denies abdominal pain and Denies heartburn Reports as per HPI and Denies change in libido Neuro Denies syncope Psych Denies change in libido Endo Denies change in libido Physical Exam Const General: cooperative, healthy appearing, comfortable and no acute distress Orientation/consciousness: patient oriented x3 HEENT Face and sinus: Yes normal facial exam Mouth: moist mucous membranes Neck Neck: Yes normal visual inspection, Yes full ROM and Yes trachea midline Chest Chest palpation & inspection: normal inspection of the chest Resp Effort & Inspection: normal respiratory effort, able to speak in complete sentences and no respiratory distress GI Inspection: Yes normal to inspection Back/Spine/Pelvis Cervical Spine: normal cervical lordosis Thoracic/Lumbar Spine: thoracic and lumbar spine normal to inspection Skin General skin exam: no rashes or lesions noted Neuro General: patient oriented x3, gait normal, tone normal and moves all extremities Extrem General: Yes normal to inspection and Yes capillary refill normal Office Procedures Post Void Residual Post Residual Void Post Void Residual (PVR): 98 [id number] Void Residual by ultrasound Assessment & Plan Assessment & Plan (1) Incomplete emptying of bladder due to benign prostatic hyperplasia: Code(s): N40.1 - Benign prostatic hyperplasia with lower urinary tract symptoms; R33.9 - Retention of urine, unspecified Category: Medical (2) Elevated PSA: Code(s): R97.20 - Elevated prostate specific antigen [PSA] Category: Medical Plan Three-month follow-up PSA office in PVR Orders: Orders AMB Post Void Residual by ultrasound Today N13.8 - Other obstructive and reflux uropathy, N40.1 - Benign prostatic hyperplasia with lower urinary tract symptoms Prostate Specific Antigen 3 Months R97.20 - Elevated prostate specific antigen [PSA] Patient Instructions: Imaging studies, laboratory and physical exam results were discussed and reviewed in detail. No major barriers to patient understanding were identified. An opportunity to ask questions regarding the treatment plan was provided. All questions were answered. The patient expressed understanding and agreement with the above treatment plan. The patient is aware they should contact our office by phone for worsening of their current condition or the appearance of new urologic symptoms. Compliance is encouraged with any medications and followup testing that is ordered. It is a privilege to participate in the urologic care of your patient. If you have any questions or concerns regarding treatment for the above conditions, or other urologic issues, please do not hesitate to contact me. The office telephone contact is [phone]. This note is constructed using voice recognition software. While every effort has been made to ensure accuracy brake drum molder errors may have been included. Yours sincerely, Dr Mayank Mccurdy MD, [facility] - Urology Providers of Expert, Compassionate Care for the Genitourinary System Coding Level of Care Code Est Pt Level 3 (47921) Diagnoses Incomplete emptying of bladder due to benign prostatic hyperplasia N40.1; R33.9 Elevated PSA R97.20 CPT Codes Post Residual Void - PVR CPT Code: 09521-Kerf Void Residual by ultrasound ([id number])
== END 2024-05-01 15:07 | disposition home or self-care (01) ==
PROVIDERS: PCP Internal Medicine; Visit Provider Urology
DX: N40.1 Benign prostatic hyperplasia with lower urinary tract symptoms (principal); R33.9 Retention of urine, unspecified; R97.20 Elevated prostate specific antigen [PSA]
CPT/HCPCS: 99024

== ENCOUNTER → 2024-05-01 13:25 | Outpatient (BNVA) | payer OTHER, SELFPAY | PROVIDERS: PCP Internal Medicine; Visit Provider Urology | DX: N40.1 Benign prostatic hyperplasia with lower urinary tract symptoms (principal); N13.8 Other obstructive and reflux uropathy; R97.20 Elevated prostate specific antigen [PSA]; R33.9 Retention of urine, unspecified | CPT/HCPCS: 51798; 99212 ==

== ENCOUNTER 2024-08-21 09:10 | Outpatient (AMB) | payer OTHER, SELFPAY ==
--- NOTE | 2024-08-21 09:11 | A.OFFVIS_ITS ---
Intake Visit Reasons: 3 M PSA/PVR Intake Note: Patient is present for 3M PVR/PVR Urology Medication:BACTRIM,BETHANECHOL CHLORIDE Antibiotic Allergy:METFORMIN Blood Thinner:NONE Last PVR:291ML'S Todays PVR:0ML'S E Business Project Manager Required: No Allergies lisinopril Allergy (Unknown, Verified 08/21/24 09:18) Unknown metformin Allergy (Unknown, Verified 08/21/24 09:18) Unknown nifedipine Allergy (Unknown, Verified 08/21/24 09:18) Unknown epinephrine Adverse Reaction (Intermediate, Verified 08/21/24 09:18) Tachycardia HPI Comments Details: Hao is a pleasant male. He is a patient of Dr Rodrigez. He is seen for the following urologic conditions - lower urinary tract symptoms - incomplete bladder emptying - elevated PSA Three-month follow-up Had been on bethanechol to try to help with bladder emptying PVR 0 cc Come off bethanechol Six-month follow-up PVR GreenLight laser prostate - 04/03 Lower urinary tract symptoms Primarily weakness of stream with incomplete bladder emptying Known large prostate 04/03 - GreenLight laser Postprocedure bethanechol to assist bladder emptying Elevated PSA/Abnormal VINCENT: He presents for further evaluation of elevated PSA. Prior management is medication with 5AR - stopped secondary to concern regarding libido Laboratory investigations include 07/29 Done at [place] , a total PSA evaluation 10 09/29 6.7 25%, 11/27 4.4, 11/27 US - 80gm prostate 120cc residual, 06/29 3.4, 07/31 3.2, 10/02 3.3 Individualized Prostate Cancer Risk Calculator >10% high risk. Symptoms include 09/29 , incomplete emptying, weak stream, nocturia, x 3, and are worsening 12/28 , incomplete emptying, weak stream, nocturia, and are improving. Overall symptoms are mild. Associated conditions diabetes Yes dyslipidemia Yes dysuria No erectile dysfunction Yes Therapeutic plan will be continued surveillance - yearly PSA review. 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, second degree Actinic keratosis Anxiety Social History Patient Tobacco Use Status: Former Tobacco user Review of Systems Const Denies chills and Denies fever(s) Card Reports no additional complaints and Denies syncope Resp Denies cough GI Denies abdominal pain and Denies heartburn Reports as per HPI and Denies change in libido Neuro Denies syncope Psych Denies change in libido Endo Denies change in libido Physical Exam Const General: cooperative, healthy appearing, comfortable and no acute distress Orientation/consciousness: patient oriented x3 HEENT Face and sinus: Yes normal facial exam Mouth: moist mucous membranes Neck Neck: Yes normal visual inspection, Yes full ROM and Yes trachea midline Chest Chest palpation & inspection: normal inspection of the chest Resp Effort & Inspection: normal respiratory effort, able to speak in complete sentences and no respiratory distress GI Inspection: Yes normal to inspection Back/Spine/Pelvis Cervical Spine: normal cervical lordosis Thoracic/Lumbar Spine: thoracic and lumbar spine normal to inspection Skin General skin exam: no rashes or lesions noted Neuro General: patient oriented x3, gait normal, tone normal and moves all extremities Extrem General: Yes normal to inspection and Yes capillary refill normal Office Procedures Post Void Residual Post Residual Void Post Void Residual (PVR): 0 [id number] Void Residual by ultrasound Results AMB Urinalysis, Automated UA Leukoctes 0 Tejal/uL Last Edit by FABRIZIO Saxena on 08/21/24 09:27 UA Nitrite Negative Last Edit by FABRIZIO Saxena on 08/21/24 09:27 UA Urobilinogen 0.2 mg/dL Last Edit by FABRIZIO Saxena on 08/21/24 09:2 7 UA Protein 0 mg/dL Last Edit by FABRIZIO Saxena on 08/21/24 09:27 UA pH 6.0 Last Edit by FABRIZIO Saxena on 08/21/24 09:27 UA Blood 0 Josue/uL Last Edit by FABRIZIO Saxena on 08/21/24 09:27 UA Specific [place] 1.015 Last Edit by FABRIZIO Saxena on 08/21/24 09: 27 UA Ketone Negative Last Edit by FABRIZIO Saxena on 08/21/24 09:27 UA Bilirubin 0 mg/dL Last Edit by FABRIZIO Saxena on 08/21/24 09:27 UA Glucose 1000 mg/dL Last Edit by FABRIZIO Saxena on 08/21/24 09:27 Results Reviewed Results Reviewed: Laboratory Last Values Urine pH (Auto) 6.0 08/21/24 09:27 Specific [place] (Auto) 1.015 08/21/24 09:27 Urine Protein (Auto) 0 mg/dL 08/21/24 09:27 Glucose (UA)(Auto) 1000 mg/dL 08/21/24 09:27 Urine Ketones (Auto) Negative 08/21/24 09:27 Urine Blood (Auto) 0 Josue/uL 08/21/24 09:27 Urine Nitrite (Auto) Negative 08/21/24 09:27 Urine Bilirubin (Auto) 0 mg/dL 08/21/24 09:27 Urine Urobilinogen (Auto) 0.2 mg/dL 08/21/24 09:27 Leukocyte Esterase (Auto) 0 Tejal/uL 08/21/24 09:27 Assessment & Plan Assessment & Plan (1) BPH w urinary obs/LUTS: Code(s): N40.1 - Benign prostatic hyperplasia with lower urinary tract symptoms; N13.8 - Other obstructive and reflux uropathy Category: Medical (2) Elevated PSA: Code(s): R97.20 - Elevated prostate specific antigen [PSA] Category: Medical Plan Six-month follow-up Orders: Orders AMB Urinalysis Automated Today Z13.9 - Encounter for screening, unspecified Patient Instructions: Imaging studies, laboratory and physical exam results were discussed and reviewed in detail. No major barriers to patient understanding were identified. An opportunity to ask questions regarding the treatment plan was provided. All questions were answered. The patient expressed understanding and agreement with the above treatment plan. The patient is aware they should contact our office by phone for worsening of their current condition or the appearance of new urologic symptoms. Compliance is encouraged with any medications and followup testing that is ordered. It is a privilege to participate in the urologic care of your patient. If you have any questions or concerns regarding treatment for the above conditions, or other urologic issues, please do not hesitate to contact me. The office telephone contact is [phone]. This note is constructed using voice recognition software. While every effort has been made to ensure accuracy vineyard worker errors may have been included. Yours sincerely, Dr Mayank Mccurdy MD, [facility] - Urology Providers of Expert, Compassionate Care for the Genitourinary System Coding Level of Care Code Est Pt Level 3 (13536) Diagnoses BPH w urinary obs/LUTS N40.1; N13.8 Elevated PSA R97.20 CPT Codes Post Residual Void - PVR CPT Code: 10507-Jwky Void Residual by ultrasound ([id number])
--- OUTSIDE RECORDS SUMMARY | 2024-08-21 23:23 | XMS_ITS | Continuity of Care Document ---
Author Name [facility] Organization [facility] Care Team Providers Care Malware Analyst Name Role Phone [facility] Unavailable Unavailable Problems Combined list of problems from Department of Defense and Veterans Affairs facilities. It does not include entries that were removed or entered in error. Problem Status Onset Date Problem Type Date of Resolution Comments Source Sleep apnea (SNOMED CT 20653581) Active 001 Condition Jul 05, 2018 Entered By: RICHARD SMITH Comment: BiPaP as of 2018 Entered By: RICHARD SMITH Comment: efficiency affected by recurrent epistaxisAu2022 Entered By: THOMAS HERNANDES Comment: updated. [facility] Uvulectomy Inactive 001 Condition 11/22/2010 [facility] Actinic keratosis Active Condition [place] Anxiety Active Condition May 08 Entered By: THOMAS HERNANDES Comment: updated. [facility] Basal cell carcinoma of skin Active Condition [facility] [place] Benign Prostatic Hypertrophy with Outflow Obstruction (SCT 537082928) Active Condition [facility] Body mass index 25-29 - overweight Active Condition [facility] Bradycardia Active Condition [facility] Cancer screening follow up Active Condition Dec 18, 2018 Entered By: RICHARD SMITH Comment: 12/2018 Declined colonoscopy referrral [facility] Depression (SCT 95087851) Active Condition [facility] Diabetes mellitus (SNOMED CT 92520409) Active Condition Aug 26, 2020 Entered By: RICHARD SMITH Comment: 2019 A1c Aug 7.4 / Jul 7.9 [facility] Elevated PSA Active Condition [facility] Epistaxis * (ICD-9-CM 784.7) Active Condition [facility] Erectile Dysfunction (SCT 023789219) Active Condition [facility] Essential hypertension (SNOMED CT 59420836) Active Condition [facility] Gastroesophageal reflux disease (SNOMED CT 012702092) Active Condition Jul 05, 2018 Entered By: RICHARD SMITH Comment: occ Tums; diet controlled [facility] Hyperglycemia due to type 2 diabetes mellitus Active Condition [facility] Hyperlipidemia Active Condition [facility] PVD-peripheral vascular disease Active Condition Jul 05 8 Entered By: RICHARD SMITH Comment: no sx 06/2018 [facility] Recurrent major depression in partial remission Active Condition May 08 Entered By: THOMAS HERNANDES Comment: updated. [facility] Second degree atrioventricular block Active Condition Oct 17, 2021 Entered By: MARIIA ABBOTT Comment: 09/2021 [place] 1M2021 Entered By: Andre LOPEZ Comment: echo 01/30 stable compared to 2019 echo [facility] Space-occupying lesion of brain Active Condition Nov 28, 2022 Entered By: MARIIA ABBOTT Comment: large arachnoid cyst [facility] Superficial basal cell carcinoma Active Condition Mar 26, 2010 Entered By: TASNEEM CHAVEZ RA Comment: 2000: Excision of lesion on rt area near nose [facility] Vitamin D Deficiency ([facility] 96905447) Active Condition [facility] 2008:Fell: LBP, Rt Ear Laceration Inactive Condition 11/22/2010 [facility]:: Amlodipine/Olmesart an(Benicar) Inactive Condition 11/22/2010 [facility] FAM HX-ISCHEM HEART DIS Inactive Condition 11/22/2010 Mar 26, 2010 Entered By: HARISH GRISSOM Comment: CAD, HTN [facility] Diagnosis: ICD-10-CM E11.9 Type 2 diabetes mellitus without complications Active Diagnosis [facility] Diagnosis: ICD-10-CM I11.9 Hypertensive heart disease without heart failure Active Diagnosis [facility] Diagnosis: ICD-10-CM F32.A Depression, unspecified Active Diagnosis [facility] Diagnosis: ICD-10-CM L02.31 Cutaneous abscess of buttock Active Diagnosis [facility] Diagnosis: ICD-10-CM L60.0 Ingrowing nail Active Diagnosis [facility] Diagnosis: ICD-10-CM L57.0 Actinic keratosis Active Diagnosis [facility] Diagnosis: ICD-10-CM R00.1 Bradycardia, unspecified Active Diagnosis [facility] Diagnosis: ICD-10-CM G47.33 Obstructive sleep apnea (adult) (pediatric) Active Diagnosis [facility] Diagnosis: ICD-10-CM F41.9 Anxiety disorder, unspecified Active Diagnosis [facility] Diagnosis: ICD-10-CM I10 Essential (primary) hypertension Active [facility] Diagnosis: ICD-10-CM R97.20 Elevated prostate specific antigen [PSA] Active Diagnosis [facility] Diagnosis: ICD-10-CM E66.3 Overweight Active Diagnosis [facility] Diagnosis: ICD-10-CM Z85.828 Personal history of other malignant neoplasm of skin Active Diagnosis [place] [facility] ([facility]) Diagnosis: ICD-10-CM R03.1 Nonspecific low blood-pressure reading Active Diagnosis [facility] Medications Combined list of outpatient medications from Department of Defense and Veterans Affairs facilities.Medications provided include 1) outpatient medications from the last 15 months, and 2) patient-reported medications. Medication Details Route Status Patient Instructions Prescription Expires Prescription Number Last Dispense Date Ordering Provider Order Date Order Qty Source AMLODIPINE BESYLATE 2.5MG TAB TAKE ONE TABLET BY MOUTH ONCE DAILY FOR BLOOD PRESSURE /HEART, DO NOT TAKE WITH GRAPEFRU IT JUICE ORAL ACTIVE 07/17/2025 [id number] NASREEN AKINS SA A 2023 90 [facility] BETHANECHOL CL 25MG TAB TAKE TWO TABLETS BY MOUTH TWICE DAILY FOR URINARY RETENTIO N ORAL ACTIVE 01/11/2025 [id number] 4 SANDRA BAIRES MD 2023 360 [facility] BETHANECHOL CL 25MG TAB TAKE TWO TABLETS BY MOUTH TWICE DAILY FOR URINARY RETENTIO N ORAL DISCONT INUED 01/11/2025 [id number] SANDRA BAIRES MD 2023 360 [facility] BETHANECHOL CL 25MG TAB TAKE TWO TABLETS BY MOUTH TWICE DAILY FOR URINARY RETENTIO N ORAL DISCONT INUED 11/10/2024 [id number] 4 SANDRA BAIRES MD 2023 120 [facility] CARBOXYMETH YLCELLULOSE NA 0.5% SOLN,OPH INSTILL 1 DROP INTO EACH EYE THREE TIMES A DAY OPHTHA LMIC 11/08/2023 [id number] 4 Waqar PRADHAN ICHELE 2022 15 [facility] CEPHALEXIN 500MG CAP TAKE ONE CAPSULE BY MOUTH THREE TIMES A DAY FOR INFECTIO N ORAL 07/18/2024 [id number] 4 Shai GLASS 2023 30 [place] CHLORTHALID ONE 25MG TAB TAKE ONE TABLET BY MOUTH ONCE DAILY TO REMOVE FLUID/CO NTROL BLOOD PRESSURE ORAL SUSPEND ED 07/13/2025 [id number] 5 MARIIA SAGASTUME 2024 90 [place] CHLORTHALID ONE 25MG TAB TAKE ONE TABLET BY MOUTH ONCE DAILY TO REMOVE FLUID/CO NTROL BLOOD PRESSURE ORAL DISCONT INUED 03/10/2025 [id number] 4 MARIIA SAGASTUME 2023 90 [place] CHLORTHALID ONE 25MG TAB TAKE ONE TABLET BY MOUTH ONCE DAILY TO REMOVE FLUID/CO NTROL BLOOD PRESSURE ORAL DISCONT INUED 10/30/2024 [id number] 4 MARIIA SAGASTUME 2023 90 [place] CHLORTHALID ONE 25MG TAB TAKE ONE TABLET BY MOUTH ONCE DAILY TO REMOVE FLUID/CO NTROL BLOOD PRESSURE ORAL DISCONT INUED 08/07/2024 [id number] 3 MARIIA SAGASTUME 2022 90 [place] CLONIDINE HCL 0.1MG TAB TAKE ONE TABLET BY MOUTH EVERY 12 HOURS TO CONTROL BLOOD PRESSURE ORAL ACTIVE 03/10/2025 [id number] 4 MARIIA SAGASTUME 2023 180 [place] CLONIDINE HCL 0.1MG TAB TAKE ONE TABLET BY MOUTH EVERY 12 HOURS TO CONTROL BLOOD PRESSURE ORAL DISCONT INUED 10/11/2024 [id number] 4 MARIIA SAGASTUME 2023 180 [place] CLONIDINE HCL 0.1MG TAB TAKE ONE TABLET BY MOUTH DAILY TO CONTROL BLOOD PRESSURE ORAL DISCONT INUED BY PROVIDE R 09/03/2023 [id number] 3 MARIIA SAGASTUME 2021 90 [place] DEXTROSE 24GM/31GM SQUEEZE TUBE 1 TUBE BY MOUTH NEEDED FOR LOW BLOOD SUGAR ORAL ACTIVE 03/10/2025 [id number] 4 MARIIA SAGASTUME 2023 3 [place] DEXTROSE 24GM/31GM SQUEEZE TUBE 1 TUBE BY MOUTH NEEDED FOR LOW BLOOD SUGAR ORAL DISCONT INUED 01/31/2024 [id number] Yovani ARMSTRONG 2022 3 [place] EMPAGLIFLOZ IN 10MG TAB TAKE ONE TABLET BY MOUTH ONCE DAILY FOR TYPE 2 DIABETES MELLITUS ORAL ACTIVE 08/17/2025 [id number] 4 Yovani ARMSTRONGA Lyric 2023 30 [place] FINASTERIDE 5MG TAB TAKE ONE TABLET BY MOUTH ONCE DAILY ORAL DISCONT INUED BY PROVIDE R 01/11/2025 [id number] SANDRA BAIRES MD 2023 90 [facility] FINASTERIDE 5MG TAB TAKE ONE TABLET BY MOUTH ONCE DAILY FOR PROSTATE ORAL DISCONT INUED 08/07/2024 [id number] 4 MARIIA SAGASTUME 2023 90 [place] FINASTERIDE 5MG TAB TAKE ONE TABLET BY MOUTH ONCE DAILY FOR PROSTATE ORAL DISCONT INUED 06/30/2023 [id number] 3 ARON FUENTESMARIIA 2021 90 [place] FLUOROURACI L 5% CREAM,TOP APPLY A THIN LAYER TOPICALL Y TWICE DAILY APPLY TO AFFECTED AREAS FOR 2-4 WEEKS OR UNTIL SUPERFIC IAL EROSION OCCURS TOPICA L 06/19/2024 [id number] DENILSON GARCIA 2023 40 [facility] FLUTICASONE NASAL SOLN,NASAL INSTILL INTO EACH NOSTRIL NASAL ACTIVE ELIESER FUNES 2020 [facility] INSULIN,ASP ART,HUMAN (EQV-NOVOLO G) 100 UNIT/ML,FLE XPEN,3ML INJECT DIRECTED SUBCUTAN EOUSLY THREE TIMES A DAY ACCORDIN G TO ICR OF 1 UNIT FOR EACH 9 GRAMS OF CARBS BEFORE BREAKFAS T AND LUNCH AND 1 UNIT FOR EACH 10 GRAMS OF CARBS BEFORE DINNER MEAL ACCORDIN G TO ICR OF 1 UNIT FOR EACH 9 GRAMS OF CARBS BEFORE BREAKFAS T AND LUNCH AND 1 UNIT FOR EACH 10 GRAMS OF CARBS BEFORE DINNER MEAL SUBCUT ANEOUS ACTIVE 11/13/2024 [id number] 4 Yovani ARMSTRONG 2023 10 [place] INSULIN,ASP ART,HUMAN (EQV-NOVOLO G) 100 UNIT/ML,FLE XPEN,3ML INJECT DIRECTED SUBCUTAN EOUSLY THREE TIMES A DAY ACCORDIN G TO ICR OF 1 UNIT FOR EACH 9 GRAMS OF CARBS BEFORE BREAKFAS T AND LUNCH AND 1 UNIT FOR EACH 10 GRAMS OF CARBS BEFORE DINNER MEAL ACCORDIN G TO ICR OF 1 UNIT FOR EACH 9 GRAMS OF CARBS BEFORE BREAKFAS T AND LUNCH AND 1 UNIT FOR EACH 10 GRAMS OF CARBS BEFORE DINNER MEAL SUBCUT ANEOUS DISCONT INUED 11/22/2023 [id number] 3 Yovani ARMSTRONG 2022 10 [place] INSULIN,GLA RGINE-YFGN 100UNIT/ML INJ PEN,3ML INJECT 11 UNITS SUBCUTAN EOUSLY ONCE DAILY FOR DIABETES SUBCUT ANEOUS ACTIVE 03/05/2025 [id number] 4 Yovani ARMSTRONG 2023 5 [place] INSULIN,GLA RGINE-YFGN 100UNIT/ML INJ PEN,3ML INJECT 18 UNITS SUBCUTAN EOUSLY ONCE DAILY SUBCUT ANEOUS DISCONT INUED BY PROVIDE R 08/23/2024 [id number] 4 Yovani ARMSTRONG 2022 10 [place] LORAZEPAM 0.5MG TAB TAKE ONE TABLET BY MOUTH ONCE DAILY FOR ANXIETY ORAL ACTIVE 01/12/2025 [id number] 4 Alonso MCGRAW G 2023 10 [place] LORAZEPAM 0.5MG TAB TAKE ONE TABLET BY MOUTH ONCE DAILY FOR ANXIETY ORAL DISCONT INUED 11/08/2024 [id number] 4 Alonso MCGRAW G 2023 10 [place] LORAZEPAM 0.5MG TAB TAKE ONE TABLET BY MOUTH ONCE DAILY FOR ANXIETY ORAL DISCONT INUED 04/24/2024 [id number] ALTAF HERNANDES 2023 10 [place] LORAZEPAM 0.5MG TAB TAKE ONE TABLET BY MOUTH ONCE DAILY FOR ANXIETY ORAL DISCONT INUED (EDIT) 11/08/2023 [id number] ALTAF HERNANDES A 2022 10 [place] NITROFURANT OIN MONOHYDRATE /MACROCRYST ALLINE 100MG CAP,SA TAKE ONE CAPSULE BY MOUTH TWICE DAILY FOR BACTERIA L URINARY TRACT INFECTIO N ORAL 09/17/2023 [id number] MARIIA SAGASTUME 2022 14 [place] SEMAGLUTIDE 2MG/0.75ML INJ,SOLN,PE N,3ML INJECT 2MG SUBCUTAN EOUSLY ONCE A WEEK FOR TYPE 2 DIABETES MELLITUS SUBCUT ANEOUS ACTIVE 11/13/2024 [id number] 4 Yovani ARMSTRONG 2023 1 [place] SEMAGLUTIDE 2MG/0.75ML INJ,SOLN,PE N,3ML INJECT 2MG SUBCUTAN EOUSLY ONCE A WEEK FOR TYPE 2 DIABETES MELLITUS SUBCUT ANEOUS ACTIVE 05/09/2024 [id number] 3 Yovani ARMSTRONG 2022 1 [place] SEMAGLUTIDE 2MG/0.75ML INJ,SOLN,PE N,3ML INJECT 2MG SUBCUTAN EOUSLY ONCE A WEEK FOR TYPE 2 DIABETES MELLITUS SUBCUT ANEOUS DISCONT INUED 08/04/2024 [id number] 4 Yovani ARMSTRONG 2022 1 [place] SILDENAFIL CITRATE 100MG TAB TAKE ONE TABLET BY MOUTH ONCE DAILY NEEDED TAKE 1 HOUR PRIOR TO SEXUAL ACTIVITY ORAL ACTIVE 03/10/2025 [id number] 4 MARIIA SAGASTUME 2023 6 [place] SILDENAFIL CITRATE 100MG TAB TAKE ONE TABLET BY MOUTH ONCE DAILY NEEDED TAKE 1 HOUR PRIOR TO SEXUAL ACTIVITY ORAL DISCONT INUED 12/13/2023 [id number] MARIIA SAGASTUME 2022 6 [place] SULFAMETHOX AZOLE 400MG/TRIME THOPRIM 80MG TAB TAKE 1 TABLET BY MOUTH ONCE DAILY ORAL 04/24/2024 [id number] SANDRA BAIRES MD 2023 10 [place] VALSARTAN 320MG TAB TAKE ONE TABLET BY MOUTH ONCE DAILY ORAL ACTIVE 03/10/2025 [id number] 4 MARIIA SAGASTUME 2023 90 [place] VALSARTAN 320MG TAB TAKE ONE TABLET BY MOUTH ONCE DAILY ORAL DISCONT INUED 10/10/2024 [id number] 4 MARIIA SAGASTUME 2023 90 [place] VALSARTAN 320MG TAB TAKE ONE TABLET BY MOUTH ONCE DAILY ORAL DISCONT INUED 05/17/2024 [id number] 4 MARIIA SAGASTUME 2022 90 [place] Allergies, Adverse Reactions, Alerts Combined list of allergies from Department of Defense and Veterans Affairs facilities. It does not include entries that were removed or entered in error. Substance Category Reaction Severity Reaction type Status Date Reported Comments Source CHANTIX Propensity to adverse reactions to drug (finding) An[facility] LISINOPRIL Propensity to adverse reactions to drug (finding) ANAPHYLATIC RX active 8 [facility] METFORMIN Propensity to adverse reactions to drug (finding) active 0 [facility] NIFEDIPINE Propensity to adverse reactions to drug (finding) active 4 [facility] Immunizations Combined list of available immunizations from the Department of Defense and Veterans Affairs facilities. Immunization Series Date Given Administered By Site Reaction Lot Number CVX Code Drug Expansion Joint Finisher Status Comments Source INFLUENZA, HIGH-DOSE, QUADRIVALENT 2022 [place] LEFT DELTO ID [id number] 197 complet ed [facility] COVID-19 (MODERNA), MRNA, LNP-S, BIVALENT BOOSTER, PF, 50 MCG/0.5 ML OR 25MCG/0.25 ML DOSE 1 2022 KYLER DURON LEFT DELTO ID [id number] 229 complet ed [facility] [place] INFLUENZA, UNSPECIFIED FORMULATION 2021 88 complet ed [facility] COVID-19 (MODERNA), MRNA, LNP-S, PF, 100 MCG OR 50 MCG DOSE 3 2020 207 complet ed MOD; [id number]; 2 [facility] [place] INFLUENZA VACCINE, QUADRIVALENT, ADJUVANTED 2020 205 complet ed [facility] [place] COVID-19 (MODERNA), MRNA, LNP-S, PF, 100 MCG/0.5 ML DOSE 2 2020 207 complet ed MOD; [id number]; 1 [facility] [place] COVID-19 (MODERNA), MRNA, LNP-S, PF, 100 MCG/0.5 ML DOSE 1 03/04/ 2021 207 complet ed MOD; [id number]; 1 [place] ZOSTER RECOMBINANT 2 2019 187 complet ed [place] INFLUENZA, INJECTABLE, QUADRIVALENT, PRESERVATIVE FREE 2019 150 complet ed [place] ZOSTER RECOMBINANT 1 2019 187 complet ed [place] INFLUENZA, SEASONAL, INJECTABLE 2017 141 complet ed [facility] INFLUENZA, SEASONAL, INJECTABLE 2016 141 complet ed [facility] TDAP 2016 115 complet ed [facility] PNEUMOCOCCAL CONJUGATE PCV 13 2015 133 complet ed Will bring from PCP [facility] FLU,3 YRS (HISTORICAL) 2015 88 complet ed Outside PCP [facility] FLU,3 YRS (HISTORICAL) 2013 88 complet ed Site: Left Deltoid [place] FLU,3 YRS (HISTORICAL) 2012 88 complet ed [facility] FLU,3 YRS (HISTORICAL) 2012 88 complet ed Site: Left Deltoid [place] PNEUMOCOCCAL POLYSACCHARID E PPV23 [address] [facility] documenta tion [facility] PNEUMOCOCCAL, UNSPECIFIED FORMULATION 2011 109 complet ed [place] FLU,3 YRS (HISTORICAL) 2011 88 complet ed Site: Left Deltoid [facility] DTAP, UNSPECIFIED FORMULATION 2010 107 complet ed Site: Right Deltoid [place] FLU,3 YRS (HISTORICAL) 2009 88 complet ed Site: Right Deltoid [facility] Results Combined list of recent chemistry, hematology and other laboratory results from Department of Defense and Veterans Affairs, ranging from 15 months to all on record, depending upon the facility. Order Name Results Value Reference Range Date Interpretation Specimen Comments Source BASIC METABOLIC PANEL (fasting) UREA NITROGEN [MASS/VOLUM E] IN SERUM OR PLASMA 39 mg/dL 7 - 25 07/25 H Specimen Type: SERUM No comment entered. Ordering Provider: BARBARA CANAS Report Released Date/Time: Jul 16, 2024 02:11 PM Reporting Lab: [facility] [address] [address] Performing Lab: [facility] [address] [facility] [facility] [address] [place] BASIC METABOLIC PANEL (fasting) GLUCOSE [MASS/VOLUM E] IN SERUM OR PLASMA 239 mg/dL 65 - 100 07/25 H Specimen Type: SERUM No comment entered. Ordering Provider: BARBARA CANAS Report Released Date/Time: Jul 16, 2024 02:11 PM Reporting [facility]: [facility] [address] [address] Performing Lab: [facility] [address] [address] [place] BASIC METABOLIC PANEL (fasting) SODIUM [MOLES/VOLU ME] IN SERUM OR PLASMA 140 mmol/L 135 - 145 07/25 Specimen Type: SERUM No comment entered. Ordering Provider: BARBARA CANAS Report Released Date/Time: Jul 16, 2024 02:11 PM Reporting Lab: [facility] [address] [address] Performing Lab: [facility]N [address] [address] [place] BASIC METABOLIC PANEL (fasting) POTASSIUM [MOLES/VOLU ME] IN SERUM OR PLASMA 4.4 mmol/L 3.5 - 5.0 07/25 Specimen Type: SERUM No comment entered. Ordering Provider: BARBARA CANAS Report Released Date/Time: Jul 16, 2024 02:11 PM Reporting Lab: [facility]PITALTRN [facility]USE[address] [address] Performing Lab: [facility]ITALRUN[facility]ITALN [address] [address] [place] BASIC METABOLIC PANEL (fasting) CHLORIDE [MOLES/VOLU ME] IN SERUM OR PLASMA 104 mmol/L 100 - 110 07/25 Specimen Type: SERUM No comment entered. Ordering Provider: BARBARA CANAS Report Released Date/Time: Jul 16, 2024 02:11 PM Reporting Lab: [address] [address] Performing Lab: [address] [address] [place] BASIC METABOLIC PANEL (fasting) CARBON DIOXIDE, TOTAL [MOLES/VOLU ME] IN SERUM OR PLASMA 25 meq/L 20 - 30 07/25 Specimen Type: SERUM No comment entered. Ordering Provider: BARBARA CANAS Report Released Date/Time: Jul 16, 2024 02:11 PM Reporting Lab: [address] [address] Performing Lab: [address] [address] [place] BASIC METABOLIC PANEL (fasting) CREATININE [MASS/VOLUM E] IN SERUM OR PLASMA 1.03 mg/dL 0.50 - 1.40 07/25 Specimen Type: SERUM No comment entered. Ordering Provider: BARBARA CANAS Report Released Date/Time: Jul 16, 2024 02:11 PM Reporting Lab: [address] [address] Performing Lab: [address] [address] [place] BASIC METABOLIC PANEL (fasting) GLOMERULAR FILTRATION RATE/1.73 SQ M.PREDICTED [VOLUME RATE/AREA] IN SERUM, PLASMA OR BLOOD BY CREATININE- BASED FORMULA (CKD-EPI 2020) 75 mL/min 60 07/25 Specimen Type: SERUM No comment entered. Ordering Provider: BARBARA CANAS Report Released Date/Time: Jul 16, 2024 02:11 PM Reporting Lab: [address] [address] Performing Lab: [facility] [place] [facility] [address] [facility] [address] [place] CBC AND DIFF (AUTO) LEUKOCYTES [#/VOLUME] IN BLOOD BY AUTOMATED COUNT 6.11 10*3/u L 4.50 - 11.00 07/25 Specimen Type: BLOOD No comment entered. Ordering Provider: BARBARA CANAS Report Released Date/Time: Jul 16, 2024 02:11 PM Reporting Lab: [facility] [place] [facility] [address] [facility] [address] Performing Lab: [facility]ITALRNOR[facility] AL[facility]AMA [facility] HOSPITALTRN [place] [address] [address] [place] CBC AND DIFF (AUTO) ERYTHROCYTE S [#/VOLUME] IN BLOOD BY AUTOMATED COUNT 4.86 10*6/u L 4.23 - 5.66 07/25 Specimen Type: BLOOD No comment entered. Ordering Provider: BARBARA CANAS Report Released Date/Time: Jul 16, 2024 02:11 PM Reporting Lab: [facility]ITAL[facility] TRN [place] [address] [address] Performing Lab: [facility]ITALRNOR[facility] AL[facility] HOSPITALTRN [place] [address] [address] [place] CBC AND DIFF (AUTO) HEMOGLOBIN [MASS/VOLUM E] IN BLOOD 14.8 g/dL 12.8 - 17 07/25 Specimen Type: BLOOD No comment entered. Ordering Provider: BARBARA CANAS Report Released Date/Time: Jul 16, 2024 02:11 PM Reporting Lab: [facility] [place] [address] [address] Performing Lab: [facility]ITALRUNITED [facility] HOSPITALN [place] [address] [address] [place] CBC AND DIFF (AUTO) HEMATOCRIT [VOLUME FRACTION] OF BLOOD BY AUTOMATED COUNT 42.8 39.2 - 50.4 07/25 Specimen Type: BLOOD No comment entered. Ordering Provider: BARBARA CANAS Report Released Date/Time: Jul 16, 2024 02:11 PM Reporting Lab: [facility]ITALRNOR[facility] AL[facility] HOSPITALTRN [facility]ENTERUSETS [facility] [address] [facility] [address] Performing Lab: [facility]ITALRNOR[facility] AL[facility] HOSPITALTRN [facility] CENTERUSETS [address] [address] [place] CBC AND DIFF (AUTO) MCV [ENTITIC VOLUME] BY AUTOMATED COUNT 88.1 fL 82 - 99 07/25 Specimen Type: BLOOD No comment entered. Ordering Provider: BARBARA CANAS Report Released Date/Time: Jul 16, 2024 02:11 PM Reporting Lab: [facility]PITALRUNITED [facility] HOSPITALN [address] [address] Performing Lab: [facility]PITALRUNITED [facility] HOSPITALN [address] [address] [place] CBC AND DIFF (AUTO) MCHC [MASS/VOLUM E] BY AUTOMATED COUNT 34.6 g/dL 30.8 - 35.1 07/25 Specimen Type: BLOOD No comment entered. Ordering Provider: BARBARA CANAS Report Released Date/Time: Jul 16, 2024 02:11 PM Reporting Lab: [facility]ITALRUNITED [facility]OSPITALN [address] [address] Performing Lab: [facility]ITALRUNITED [facility] HOSPITALN [facility] CENTERUSETS [address] [address] [place] CBC AND DIFF (AUTO) PLATELETS [#/VOLUME] IN BLOOD BY AUTOMATED COUNT 140 10*3/u L 140 - 360 07/25 Specimen Type: BLOOD No comment entered. Ordering Provider: BARBARA CANAS Report Released Date/Time: Jul 16, 2024 02:11 PM Reporting Lab: [facility]ITALRNOR[facility] HOSPITALTRN [facility]ENTERUSE[address] [address] Performing Lab: [facility]ITALRUNITED [facility] MAR[facility] HOSPITALN [facility] CENTERUSETS [address] [address] [place] CBC AND DIFF (AUTO) ERYTHROCYTE DISTRIBUTIO N WIDTH [RATIO] BY AUTOMATED COUNT 12.6 12.0 - 16.0 07/25 Specimen Type: BLOOD No comment entered. Ordering Provider: BARBARA CANAS Report Released Date/Time: Jul 16, 2024 02:11 PM Reporting Lab: [facility] [place] [address] [address] Performing Lab: [facility] [place] [address] [address] [place] CBC AND DIFF (AUTO) MONOCYTES [#/VOLUME] IN BLOOD BY AUTOMATED COUNT 0.51 10*3/u L 0.30 - 1.10 07/25 Specimen Type: BLOOD No comment entered. Ordering Provider: BARBARA CANAS Report Released Date/Time: Jul 16, 2024 02:11 PM Reporting Lab: [facility] [place] [address] [address] Performing Lab: [facility] [place] [address] [address] [place] CBC AND DIFF (AUTO) MCH [ENTITIC MASS] BY AUTOMATED COUNT 30.5 pg 26.2 - 32.6 07/25 Specimen Type: BLOOD No comment entered. Ordering Provider: BARBARA CANAS Report Released Date/Time: Jul 16, 2024 02:11 PM Reporting Lab: [facility] [place] [address] [address] Performing Lab: [facility] [place] [address] [address] [place] CBC AND DIFF (AUTO) NEUTROPHILS /100 LEUKOCYTES IN BLOOD BY AUTOMATED COUNT 70.1 43.7 - 75.8 07/25 Specimen Type: BLOOD No comment entered. Ordering Provider: BARBARA CANAS Report Released Date/Time: Jul 16, 2024 02:11 PM Reporting Lab: [facility] [place] [address] [address] Performing Lab: [facility] [place] [address] [address] [place] CBC AND DIFF (AUTO) LYMPHOCYTES /100 LEUKOCYTES IN BLOOD BY AUTOMATED COUNT 19.0 14.0 - 42.3 07/25 Specimen Type: BLOOD No comment entered. Ordering Provider: BARBARA CANAS Report Released Date/Time: Jul 16, 2024 02:11 PM Reporting Lab: [facility] [place] [facility] [address] [address] Performing Lab: [facility] [place] [facility] [address] [facility] [address] [place] CBC AND DIFF (AUTO) MONOCYTES/1 00 LEUKOCYTES IN BLOOD BY AUTOMATED COUNT 8.3 5.1 - 13.7 07/25 Specimen Type: BLOOD No comment entered. Ordering Provider: BARBARA CANAS Report Released Date/Time: Jul 16, 2024 02:11 PM Reporting Lab: [facility] [address] [address] Performing Lab: [facility] [place] [address] [address] [place] CBC AND DIFF (AUTO) EOSINOPHILS /100 LEUKOCYTES IN BLOOD BY AUTOMATED COUNT 1.6 0.4 - 6.8 07/25 Specimen Type: BLOOD No comment entered. Ordering Provider: BARBARA CANAS Report Released Date/Time: Jul 16, 2024 02:11 PM Reporting Lab: [facility] [address] [address] Performing Lab: [facility] [place] [address] [address] [place] CBC AND DIFF (AUTO) BASOPHILS/1 00 LEUKOCYTES IN BLOOD BY AUTOMATED COUNT 0.7 0.1 - 2.0 07/25 Specimen Type: BLOOD No comment entered. Ordering Provider: BARBARA CANAS Report Released Date/Time: Jul 16, 2024 02:11 PM Reporting Lab: [facility] [place] [address] [address] Performing Lab: [facility] [place] [address] [address] [place] CBC AND DIFF (AUTO) NEUTROPHILS [#/VOLUME] IN BLOOD BY AUTOMATED COUNT 4.28 10*3/u L 2.20 - 7.60 07/25 Specimen Type: BLOOD No comment entered. Ordering Provider: BARBARA CANAS Report Released Date/Time: Jul 16, 2024 02:11 PM Reporting Lab: [facility] [address] [address] Performing Lab: [facility]OSPITALRUNITED [facility]INE HOSPITALN [facility] CENTERUSETAMMY VIL[place] [address] [place] CBC AND DIFF (AUTO) LYMPHOCYTES [#/VOLUME] IN BLOOD BY AUTOMATED COUNT 1.16 10*3/u L 1.00 - 3.20 07/25 Specimen Type: BLOOD No comment entered. Ordering Provider: BARBARA CANAS Report Released Date/Time: Jul 16, 2024 02:11 PM Reporting Lab: [facility]ENTERUSE[address] [address] Performing Lab: [facility] HOSPITALRUNITED STATES MARINE HOSPITALN [facility]ENTERUSE[address] [address] [place] CBC AND DIFF (AUTO) EOSINOPHILS [#/VOLUME] IN BLOOD BY AUTOMATED COUNT 0.10 10*3/u L 0.03 - 0.44 07/25 Specimen Type: BLOOD No comment entered. Ordering Provider: BARBARA CANAS Report Released Date/Time: Jul 16, 2024 02:11 PM Reporting Lab: [facility]OSPITALRNORTH ALABAMA REGIONAL HOSPITALTRN [facility]ENTERUSETS [address] [address] Performing Lab: [facility]OSPITALRUNITED STATES MARINE HOSPITALN [facility]ENTERUSETS [address] [address] [place] CBC AND DIFF (AUTO) BASOPHILS [#/VOLUME] IN BLOOD BY AUTOMATED COUNT 0.04 10*3/u L 0.01 - 0.13 07/25 Specimen Type: BLOOD No comment entered. Ordering Provider: BARBARA CANAS Report Released Date/Time: Jul 16, 2024 02:11 PM Reporting Lab: [facility] [address] [address] Performing Lab: [facility] HOSPITALRL TRN [facility]ENTERUSE[address] [address] [place] CBC AND DIFF (AUTO) IMMATURE GRANULOCYTE S/100 LEUKOCYTES IN BLOOD BY AUTOMATED COUNT 0.3 0.0 - 0.7 07/25 Specimen Type: BLOOD No comment entered. Ordering Provider: BARBARA CANAS Report Released Date/Time: Jul 16, 2024 02:11 PM Reporting Lab: [facility] HOSPITALRL TRN [address] [address] Performing Lab: [facility] [address] [address] [place] CBC AND DIFF (AUTO) IMMATURE GRANULOCYTE S [#/VOLUME] IN BLOOD 0.02 10*3/u L 0.00 - 0.06 07/25 Specimen Type: BLOOD No comment entered. Ordering Provider: BARBARA CANAS Report Released Date/Time: Jul 16, 2024 02:11 PM Reporting Lab: [facility] [address] [address] Performing Lab: [facility] HOSPITALRUNITED STATES MARINE HOSPITALN [address] [address] [place] CBC AND DIFF (AUTO) NRBC % 0.0 0.0 - 0.0 07/25 Specimen Type: BLOOD No comment entered. Ordering Provider: BARBARA CANAS Report Released Date/Time: Jul 16, 2024 02:11 PM Reporting Lab: [facility] HOSPITALRUNITED STATES MARINE HOSPITALN [address] [address] Performing Lab: [facility] [address] [address] [place] CBC AND DIFF (AUTO) NRBC, ABS 0.00 10*3/u L 0.00 - 0.00 07/25 Specimen Type: BLOOD No comment entered. Ordering Provider: BARBARA CANAS Report Released Date/Time: Jul 16, 2024 02:11 PM Reporting Lab: [facility] [address] [address] Performing Lab: [facility] [address] [address] [place] HEMOGLOBI N A1C PANEL HEMOGLOBIN A1C/HEMOGLO BIN.TOTAL IN BLOOD BY HPLC 8.5 4.0 - 5.6 07/25 H Specimen Type: BLOOD Comment: Values obtained from A1C measurement s can vary. For atypical A1C assays, a reported value of 7.0 could actually be between 6.72 and 7.28 if measured by a reference method. A reported value of 9.0 could actually be between 8.73 and 9.27. Ref: http://www. ngsp.org/[place] Pdata.asp Ordering Provider: BARBARA CANAS Report Released Date/Time: Jul 16, 2024 02:11 PM Reporting Lab: [facility] [address] [address] Performing Lab: [facility] CENTERUSE[address] [address] [place] LIPID PANEL FASTING CHOLESTEROL [MASS/VOLUM E] IN SERUM OR PLASMA 118 mg/dL 07/25 Specimen Type: SERUM No comment entered. Ordering Provider: BARBARA CANAS Report Released Date/Time: Jul 16, 2024 02:11 PM Reporting Lab: [facility]ENTERUSE[address] [address] Performing Lab: [facility]ENTERUSE[address] [address] [place] LIPID PANEL FASTING TRIGLYCERID E [MASS/VOLUM E] IN SERUM OR PLASMA 77 mg/dL 0 - 150 07/25 Specimen Type: SERUM No comment entered. Ordering Provider: BARBARA CANAS Report Released Date/Time: Jul 16, 2024 02:11 PM Reporting Lab: [facility]ENTERUSE[address] [address] Performing Lab: [facility]ERN [facility]ENTERUSEGRACIE [facility] [address] [address] [place] LIPID PANEL FASTING CHOLESTEROL IN LDL [MASS/VOLUM E] IN SERUM OR PLASMA BY CALCULATION 58 mg/dL 0 - 129 07/25 Specimen Type: SERUM No comment entered. Ordering Provider: BARBARA CANAS Report Released Date/Time: Jul 16, 2024 02:11 PM Reporting Lab: [facility]ENTERUSE[address] [address] Performing Lab: [facility]ENTERUSE[address] [address] [place] LIPID PANEL FASTING CHOLESTEROL .TOTAL/CHOL ESTEROL IN HDL [MASS RATIO] IN SERUM OR PLASMA 2.6 07/25 Specimen Type: SERUM No comment entered. Ordering Provider: BARBARA CANAS Report Released Date/Time: Jul 16, 2024 02:11 PM Reporting Lab: [facility]ENTERUSE[address] [address] Performing Lab: [facility]ENTERUSE[address] [address] [place] LIPID PANEL FASTING CHOLESTEROL IN HDL [MASS/VOLUM E] IN SERUM OR PLASMA 45 mg/dL 40 - 60 07/25 Specimen Type: SERUM No comment entered. Ordering Provider: BARBARA CANAS Report Released Date/Time: Jul 16, 2024 02:11 PM Reporting Lab: [facility]ENTERUSE[address] [address] Performing Lab: [facility]ENTERUSE[address] [address] [place] LIVER FUNCTION PROTEIN [MASS/VOLUM E] IN SERUM OR PLASMA 6.8 g/dL 6.0 - 8.3 07/25 Specimen Type: SERUM No comment entered. Ordering Provider: BARBARA CANAS Report Released Date/Time: Jul 16, 2024 02:11 PM Reporting Lab: [facility]ENTERUSE[address] [address] Performing Lab: [facility] HOSPITALRNORTH ALABAMA REGIONAL HOSPITALTRN [facility] [address] [address] [place] LIVER FUNCTION ALBUMIN [MASS/VOLUM E] IN SERUM OR PLASMA 3.6 g/dL 3.5 - 5.0 07/25 Specimen Type: SERUM No comment entered. Ordering Provider: BARBARA CANAS Report Released Date/Time: Jul 16, 2024 02:11 PM Reporting Lab: [facility]OSPITALRL TRN [address] [address] Performing Lab: [facility] HOSPITALRNORTH ALABAMA REGIONAL HOSPITALTRN [address] [address] [facility] [place] LIVER FUNCTION ALKALINE PHOSPHATASE [ENZYMATIC ACTIVITY/VO LUME] IN SERUM OR PLASMA 71 U/L 40 - 150 07/25 Specimen Type: SERUM No comment entered. Ordering Provider: BARBARA CANAS Report Released Date/Time: Jul 16, 2024 02:11 PM Reporting Lab: [facility] HOSPITALRL TRN [facility]ENTERUSE[address] [address] Performing Lab: [facility] HOSPITALRL TRN [facility]ENTERUSE[address] [address] [place] LIVER FUNCTION ASPARTATE AMINOTRANSF ERASE [ENZYMATIC ACTIVITY/VO LUME] IN SERUM OR PLASMA 17 U/L 5 - 34 07/25 Specimen Type: SERUM No comment entered. Ordering Provider: BARBARA CANAS Report Released Date/Time: Jul 16, 2024 02:11 PM Reporting Lab: [facility] HOSPITALRL TRN [facility]ENTERUSE[address] [address] Performing Lab: [facility] HOSPITALRUNITED STATES MARINE HOSPITALN [facility] CENTERUSE[address] [address] [place] LIVER FUNCTION ALANINE AMINOTRANSF ERASE [ENZYMATIC ACTIVITY/VO LUME] IN SERUM OR PLASMA 18 U/L 07/25 Specimen Type: SERUM No comment entered. Ordering Provider: BARBARA CANAS Report Released Date/Time: Jul 16, 2024 02:11 PM Reporting Lab: [facility] [address] [facility] [address] Performing Lab: [facility] HOSPITALRL TRN [facility] CENTERUSE[address] [address] [place] LIVER FUNCTION BILIRUBIN.T OTAL [MASS/VOLUM E] IN SERUM OR PLASMA 0.5 mg/dL 0.2 - 1.2 07/25 Specimen Type: SERUM No comment entered. Ordering Provider: BARBARA CANAS Report Released Date/Time: Jul 16, 2024 02:11 PM Reporting Lab: [facility] HOSPITALRL TRN [address] [address] Performing Lab: [facility] HOSPITALRL [facility]ENTERN [facility]ENTERUSE[address] [address] [place] TSH THYROTROPIN [UNITS/VOLU ME] IN SERUM OR PLASMA 2.04 u[IU]/ mL 0.35 - 5.00 07/25 Specimen Type: SERUM No comment entered. Ordering Provider: BARBARA CANAS Report Released Date/Time: Jul 16, 2024 02:11 PM Reporting Lab: [facility] [place] [address] [address] Performing Lab: [facility] HOSPITALRL [facility] CENTERN [facility]ENTERUSE[address] [address] [place] PSA PROSTATE SPECIFIC AG [MASS/VOLUM E] IN SERUM OR PLASMA 2.56 ng/mL 0.00 - 4.00 05/07 Specimen Type: SERUM No comment entered. Ordering Provider: BARBARA CANAS Report Released Date/Time: May 04, 2024 12:14 AM Reporting Lab: [facility] HOSPITALRL TRN [facility]ENTERUSE[address] [address] Performing Lab: [facility] [address] [address] [place] HEMOGLOBI N A1C PANEL HEMOGLOBIN A1C/HEMOGLO BIN.TOTAL IN BLOOD BY HPLC 8.1 4.0 - 5.6 05/03 H Specimen Type: BLOOD Comment: Values obtained from A1C measurement s can vary. For atypical A1C assays, a reported value of 7.0 could actually be between 6.72 and 7.28 if measured by a reference method. A reported value of 9.0 could actually be between 8.73 and 9.27. Ref: http://www. ngsp.org/[place] Pdata.asp Ordering Provider: BARBARA CANAS Report Released Date/Time: Oct 30, 2023 05:07 PM Reporting Lab: [facility]ITALTR[facility] [place] [address] [address] Performing Lab: [facility]ERN [facility]ENTERUSE[address] [address] [place] LIPID PANEL FASTING CHOLESTEROL [MASS/VOLUM E] IN SERUM OR PLASMA 108 mg/dL 05/03 Specimen Type: SERUM No comment entered. Ordering Provider: BARBARA CANAS Report Released Date/Time: Oct 30, 2023 05:07 PM Reporting Lab: [facility]ITALTR[facility] [place] [address] [address] Performing Lab: [facility] HOSPITALTRN [facility]ENTERUSETS [address] [address] [place] LIPID PANEL FASTING TRIGLYCERID E [MASS/VOLUM E] IN SERUM OR PLASMA 79 mg/dL 0 - 150 05/03 Specimen Type: SERUM No comment entered. Ordering Provider: BARBARA CANAS Report Released Date/Time: Oct 30, 2023 05:07 PM Reporting Lab: [facility]ITALTRN [place] [address] [address] Performing Lab: [facility] HOSPITALTRN [address] [address] [place] LIPID PANEL FASTING CHOLESTEROL IN LDL [MASS/VOLUM E] IN SERUM OR PLASMA BY CALCULATION 47 mg/dL 0 - 129 05/03 Specimen Type: SERUM No comment entered. Ordering Provider: BARBARA CANAS Report Released Date/Time: Oct 30, 2023 05:07 PM Reporting Lab: [facility] HOSPITALRNORTH ALABAMA REGIONAL HOSPITALTRN [address] [address] Performing Lab: [address] [address] [place] LIPID PANEL FASTING CHOLESTEROL .TOTAL/CHOL ESTEROL IN HDL [MASS RATIO] IN SERUM OR PLASMA 2.4 05/03 Specimen Type: SERUM No comment entered. Ordering Provider: BARBARA CANAS Report Released Date/Time: Oct 30, 2023 05:07 PM Reporting Lab: [address] [address] Performing Lab: [address] [address] [place] LIPID PANEL FASTING CHOLESTEROL IN HDL [MASS/VOLUM E] IN SERUM OR PLASMA 45 mg/dL 40 - 60 05/03 Specimen Type: SERUM No comment entered. Ordering Provider: BARBARA CANAS Report Released Date/Time: Oct 30, 2023 05:07 PM Reporting Lab: [address] [address] Performing Lab: [address] [address] [place] LIVER FUNCTION PROTEIN [MASS/VOLUM E] IN SERUM OR PLASMA 7.3 g/dL 6.0 - 8.3 05/03 Specimen Type: SERUM No comment entered. Ordering Provider: BARBARA CANAS Report Released Date/Time: Oct 30, 2023 05:07 PM Reporting Lab: [address] [address] Performing Lab: [address] [address] [place] LIVER FUNCTION ALBUMIN [MASS/VOLUM E] IN SERUM OR PLASMA 3.8 g/dL 3.5 - 5.0 05/03 Specimen Type: SERUM No comment entered. Ordering Provider: BARBARA CANAS Report Released Date/Time: Oct 30, 2023 05:07 PM Reporting Lab: [facility]OSPITALRL WSTRN [place] [facility] [address] [facility] [address] Performing Lab: [facility]OSPITALRL [facility]N [place] [facility] [address] [address] [place] LIVER FUNCTION ALKALINE PHOSPHATASE [ENZYMATIC ACTIVITY/VO LUME] IN SERUM OR PLASMA 73 U/L 40 - 150 05/03 Specimen Type: SERUM No comment entered. Ordering Provider: BARBARA CANAS Report Released Date/Time: Oct 30, 2023 05:07 PM Reporting Lab: [facility] HOSPITALRL TRN [facility] [address] [facility] [address] Performing Lab: [facility] HOSPITALRL TRN [facility]ENTERUSE[address] [address] [place] LIVER FUNCTION ASPARTATE AMINOTRANSF ERASE [ENZYMATIC ACTIVITY/VO LUME] IN SERUM OR PLASMA 21 U/L 5 - 34 05/03 Specimen Type: SERUM No comment entered. Ordering Provider: BARBARA CANAS Report Released Date/Time: Oct 30, 2023 05:07 PM Reporting Lab: [facility]OSPITALRL TRN [facility]ENTERUSE[address] [address] Performing Lab: [facility]OSPITALRL TRN [facility] CENTERUSETS [address] [address] [place] LIVER FUNCTION ALANINE AMINOTRANSF ERASE [ENZYMATIC ACTIVITY/VO LUME] IN SERUM OR PLASMA 22 U/L 05/03 Specimen Type: SERUM No comment entered. Ordering Provider: BARBARA CNAAS Report Released Date/Time: Oct 30, 2023 05:07 PM Reporting Lab: [facility]OSPITALRL TRN [facility] CENTERUSETS [facility] [address] [facility] [address] Performing Lab: [facility]OSPITALRL TRN [facility]ENTERUSE[address] [address] [place]IVER FUNCTION BILIRUBIN.T OTAL [MASS/VOLUM E] IN SERUM OR PLASMA 0.5 mg/dL 0.2 - 1.2 05/03 Specimen Type: SERUM No comment entered. Ordering Provider: BARBARA CANAS Report Released Date/Time: Oct 30, 2023 05:07 PM Reporting Lab: [facility] [place] [facility] [address] [facility] [address] Performing Lab: [facility] [place] [facility] [address] [address] [facility] Vital Signs Combined list of inpatient and outpatient Vital Signs from Department of Defense and Veterans Affairs, ranging from 12 months to all on record, depending upon the facility. Vital Sign Value Date Comments Source SYSTOLIC BLOOD PRESSURE 146 06/20/20 24 11:22:49 [facility] DIASTOLIC BLOOD PRESSURE 69 024 11:22:49 [facility] PULSE OXIMETRY 96 06/20/2024 11:22:49 [facility] PAIN 3 06/20/2024 11:22:49 [facility] TEMPERATURE 98.5 06/20/2024 11:22:49 [facility] PULSE 81 06/20/2024 11:22:49 [facility] RESPIRATION 16 06/20/2024 11:22:49 [facility] SYSTOLIC BLOOD PRESSURE 169 06/18/20 24 14:34:12 [facility] DIASTOLIC BLOOD PRESSURE 93 14:34:12 [facility] PULSE OXIMETRY 97 06/18/2024 14:34:12 [facility] PAIN 3 06/18/2024 14:34:12 [facility] TEMPERATURE 97.6 06/18/2024 14:34:12 [facility] PULSE 96 06/18/2024 14:34:12 [facility] RESPIRATION 20 06/18/2024 14:34:12 [facility] WEIGHT 171.7 12/04/2023 13:32:49 [facility] [place] [facility] BMI 29kg/m2 12/04/2023 13:32:49 [facility] [place] [facility] HEIGHT 65 12/04/2023 13:32:49 [facility] [place] [facility] SYSTOLIC BLOOD PRESSURE 132 10/27/19 24 11:21:03 [facility] DIASTOLIC BLOOD PRESSURE 69 024 11:21:03 [facility] PULSE OXIMETRY 98 10/27/2023 11:21:03 [facility] WEIGHT 176.6 10/27/2023 11:21:03 [facility] BMI 29kg/m2 10/27/2023 11:21:03 [facility] TEMPERATURE 97.6 10/27/2023 11:21:03 [facility] Encounters Combined list of: 1) Encounters from Department of Veterans Affairs facilities going back up to thelast 18 months. 2) Encounters from the Department of Defense facilities going back up to 280 months. Location Location Details Encounter Type Encounter Number Reason For Visit Attending Provider ADM Date DC Date Status Disposition Source [place] [facility] [place] [facility] HC PRO PHONE CALL 5-10 MIN [id number] Diagnos is: ICD-10- CM 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
TRYBA,TAMM Y 02/20 [facility] [place] [facility] PRO PHONE CALL 21-30 MIN [id number] Diagnos is: ICD-10- CM E11.9 Type 2 diabete s mellitu s without complic ations< br/> SANDRO ARMSTRONG A 02/20 [facility] [place] [facility] Outpatient Encounter [id number] 02/20 [facility] [place] [facility] OFFICE O/P EST LOW 20-29 MIN [id number] Diagnos is: ICD-10- CM L60.0 Ingrowi ng nail
RENÉ SHAY F 02/28 [facility] [place] [facility] [place] [facility] Outpatient Encounter [id number] SANDRO ARMSTRONG A 03/01 [facility] [place] [place] [facility] [place] [facility] Outpatient Encounter [id number] Diagnos is: ICD-10- CM 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
TRYBA,TAMM Y 03/06 [facility] [place] [place] [facility] [place] [place] [facility] HC PRO PHONE CALL 5-10 MIN [id number] Diagnos is: ICD-10- CM R03.1 Nonspec ific low blood-p ressure reading
TRYBA,TAMM Y 03/07 [facility] [place] [facility] [place] [facility] HC PRO PHONE CALL 11-20 MIN [id number] Diagnos is: ICD-10- CM 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
TRYBA,TAMM Y 03/13 [facility] [place] [facility] [facility] En[facility] [id number] 03/21 [facility] [place] [facility] [facility] [place] [facility] Outpatient Encounter [id number] 03/29 [facility] [place] [facility] [place] [facility] Outpatient Encounter [id number] Diagnos is: ICD-10- CM 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
TRYBA,TAMM Y 04/03 [facility] [place] [facility] [place] [facility] HC PRO PHONE CALL 5-10 MIN [id number] Diagnos is: ICD-10- CM 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
TRYBA,TAMM Y 04/13 [facility] [place] [facility] [place] [facility] Outpatient Encounter [id number] 04/17 [facility] [place] [place] [facility] [place] HC PRO PHONE CALL 21-30 MIN [id number] Diagnos is: ICD-10- CM E11.9 Type 2 diabete s mellitu s without complic ations< br/> SANDRO ARMSTRONG 04/24 [place] [facility] En[facility] [id number] 04/25 [facility] [place] [facility] [facility] En[facility] [id number] THOMAS HERNANDES A 04/28 [facility] [place] [facility] [facility] En[facility] [id number] 05/02 [facility] [place] [facility] [facility] En[facility] [id number] Diagnos is: ICD-10- CM 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
TRYBA,TAMM Y 05/03 [facility] [place] [facility] [facility] [place] OFFICE O/P EST LOW 20-29 MIN [id number] Diagnos is: ICD-10- CM F41.9 Anxiety disorde r, unspeci fied
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
DENILSON GARCIA 05/22 [place] [facility] [place] MTMS BY PHARM ADDL 15 MIN [id number] Diagnos is: ICD-10- CM E11.9 Type 2 diabete s mellitu s without complic ations< br/> NATHANIELSANDRO ABEL A 05/31 [place] [facility] Outpatient Encounter [id number] Diagnos is: ICD-10- CM 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
TRYBA,TAMM Y 06/08 [facility] PRO PHONE CALL 5-10 MIN [id number] Diagnos is: ICD-10- CM 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
ZEINA WILD 06/20 [facility] Outpatient Encounter [id number] 06/26 [facility] OFFICE O/P EST HI 40-54 MIN [id number] Diagnos is: ICD-10- CM E66.3 Overwei ght<br/ > MATILDE RAMAN 06/26 [place] [facility] IMMUNIZATI ON ADMIN [id number] MATILDE RAMAN 06/26 [facility] 21-30 MIN [id number] Diagnos is: ICD-10- CM E11.9 Type 2 diabete s mellitu s without complic ations< br/> SANDRO ARMSTRONG A 06/27 [place] [facility] Outpatient Encounter [id number] Diagnos is: ICD-10- CM 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
TRYBA,TAMM Y 07/04 [facility] [place] Out[facility] Encounter [id number] 07/31 [place] [facility] Out[facility] Encounter [id number] 08/04 [facility] Encounter [id number] 08/04 [facility] Outpatient Encounter [id number] 08/07 [facility] [place] PRO PHONE CALL 11-20 MIN [id number] Diagnos is: ICD-10- CM E11.9 Type 2 diabete s mellitu s without complic ations< br/> SANDRO ARMSTRONG 08/07 [place] [facility] Outpatient Encounter [id number] Diagnos is: ICD-10- CM 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
TRYBA,TAMM Y 08/08 [facility] Out[facility] Encounter [id number] SANDRO ARMSTRONG 08/23 [facility] [place] OFF/OP EST MAY X REQ PHY/QHP [id number] [id number] Diagnos is: ICD-10- CM R97.20 Elevate d prostat e specifi c antigen [PSA]<b r/> MENDEL MORTON 08/25 [place] O/P EST MOD 30-39 MIN [id number] [id number] Diagnos is: ICD-10- CM L60.0 Ingrowi ng nail
JASPALRENÉ ES F 08/28 [place] [facility] Outpatient Encounter [id number] Diagnos is: ICD-10- CM 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
TRYBA,TAMM Y 08/29 [facility] HC PRO PHONE CALL 21-30 MIN [id number] Diagnos is: ICD-10- CM 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
TRYBA,TAMM Y 09/15 [facility] Outpatient Encounter [id number] 09/26 [facility] PRO PHONE CALL 21-30 MIN [id number] Diagnos is: ICD-10- CM E11.9 Type 2 diabete s mellitu s without complic ations< br/> SANDRO ARMSTRONG A 10/02 [facility] [place] [facility] Outpatient Encounter [id number] Diagnos is: ICD-10- CM E11.9 Type 2 diabete s mellitu s without complic ations< br/> CORALVILLEOK LINO GLASS III 10/04 [facility] Outpatient Encounter [id number] 10/08 [facility] HC PRO PHONE CALL 5-10 MIN [id number] Diagnos is: ICD-10- CM 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
ZEINA WILD 10/10 [facility] Outpatient Encounter [id number] 10/11 [facility] Outpatient Encounter [id number] Diagnos is: ICD-10- CM I10 Essenti al (primar y) hyperte nsion<b r/> GRIFFIN MAO ECCA R 10/11 [facility] HC PRO PHONE CALL 21-30 MIN [id number] Diagnos is: ICD-10- CM 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
ZEINA WILD 10/11 [facility] POS AIRWAY PRESSURE CPAP [id number] Diagnos is: ICD-10- CM G47.33 Obstruc tive sleep apnea (adult) (pediat romaine)
LISBETH LORA 10/11 [facility] Outpatient Encounter [id number] 10/11 [facility] HC PRO PHONE CALL 5-10 MIN [id number] Diagnos is: ICD-10- CM 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
ZEINA WILD 10/12 [facility] HC PRO PHONE CALL 5-10 MIN [id number] [id number] Diagnos is: ICD-10- CM 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
ZEINA WILD 10/12 [facility] HC PRO PHONE CALL 5-10 MIN [id number] Diagnos is: ICD-10- CM 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
ZEINA WILD 10/16 [facility] FEE [id number] [id number] Diagnos is: ICD-10- CM F32.A Depress ion, unspeci fied
SHOBANDE,O LUBOWALE 10/23 [place] [facility] OFFICE O/P EST MOD 30 MIN [id number] Diagnos is: ICD-10- CM F32.A Depress ion, unspeci fied
THOMAS HERNANDES 10/23 [facility] Outpatient Encounter [id number] TRYBA,TAMM Y 10/24 [facility] HC PRO PHONE CALL 11-20 MIN [id number] Diagnos is: ICD-10- CM 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
TRYBA,TAMM Y 10/24 [facility] HC PRO PHONE CALL 11-20 MIN [id number] [id number] Diagnos is: ICD-10- CM 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
TRYBA,TAMM Y 10/24 [facility] HC PRO PHONE CALL 11-20 MIN [id number] [id number] Diagnos is: ICD-10- CM 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
TRYBA,TAMM Y 10/24 [facility] Outpatient Encounter [id number] 10/26 [facility] Outpatient Encounter [id number] 10/27 [facility] MTMS BY PHARM ADDL 15 MIN [id number] [id number] Diagnos is: ICD-10- CM E11.9 Type 2 diabete s mellitu s without complic ations< br/> SANDRO ARMSTRONG CHAYO A 10/27 [place] [facility] Outpatient Encounter [id number] 10/27 [facility] O/P EST MOD 30 MIN [id number] [id number] Diagnos is: ICD-10- CM 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
MATILDE RAMAN M 10/27 [place] [facility] PRO PHONE CALL 5-10 MIN [id number] Diagnos is: ICD-10- CM R00.1 Bradyca rdia, unspeci fied
ZAC,MIRTA AN M 10/31 [facility] Outpatient Encounter [id number] Diagnos is: ICD-10- CM 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
TRYBA,TAMM Y 11/06 [facility] Outpatient Encounter [id number] [facility] Out[facility] Encounter [id number] 11/09 [facility] Out[facility] Encounter [id number] 11/09 [facility] [place] PRO PHONE CALL 21-30 MIN [id number] [id number] Diagnos is: ICD-10- CM E11.9 Type 2 diabete s mellitu s without complic ations< br/> SANDRO ARMSTRONG 11/12 [place] [facility] Outpatient Encounter [id number] 11/14 [facility] PRO PHONE CALL 11-20 MIN [id number] Diagnos is: ICD-10- CM 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
TRYBA,TAMM Y 11/16 [facility] [place] BIOFEEDBAC K TRAIN ANY METH [id number] [id number] Diagnos is: ICD-10- CM F41.9 Anxiety disorde r, unspeci fied
GARRETT SHEETS 11/19 [place] Outpatient Encounter [id number] [id number] 11/26 [place] [facility] Outpatient Encounter [id number] SANDRO ARMSTRONG 11/27 [facility] [place] PRO PHONE CALL 11-20 MIN [id number] [id number] Diagnos is: ICD-10- CM E11.9 Type 2 diabete s mellitu s without complic ations< br/> SANDRO ARMSTRONG 11/27 [place] [id number] [id number] Diagnos is: ICD-10- CM E11.9 Type 2 diabete s mellitu s without complic ations< br/> JURGEN OBRIEN P 12/03 [place] [facility] Outpatient Encounter [id number] Diagnos is: ICD-10- CM 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
TRYBA,TAMM Y 12/05 [facility] Outpatient Encounter [id number] [id number] 12/10 [facility] [place] [facility] HC PRO PHONE CALL 11-20 MIN [id number] [id number] 63 Diagnos is: ICD-10- CM E11.9 Type 2 diabete s mellitu s without complic ations< br/> SANDRO ARMSTRONG A 12/11 [place] [facility] Outpatient Encounter [id number] 12/11 [facility] Outpatient Encounter [id number] 12/19 [facility] PRO PHONE CALL 5-10 MIN [id number] Diagnos is: ICD-10- CM 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
TRYBA,TAMM Y 01/07 [facility] OFF[facility] O/P EST LOW 20 MIN [id number] [id number] Diagnos is: ICD-10- CM L60.0 Ingrowi ng nail
JASPALRENÉ ES F 01/21 [place] [facility] Outpatient Encounter [id number] 01/26 [facility] Outpatient Encounter [id number] 1. 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
TRYBA,TAMM Y 02/05 [facility] MTMS BY PHARM ADDL 15 MIN [id number] Diagnos is: ICD-10- CM E11.9 Type 2 diabete s mellitu s without complic ations< br/> SANDRO ARMSTRONG A 03/01 [place] [facility] Outpatient Encounter [id number] 03/04 [facility] Outpatient Encounter [id number] 03/08 [facility] POS AIRWAY PRESSURE FILTER [id number] Diagnos is: ICD-10- CM G47.33 Obstruc tive sleep apnea (adult) (pediat romaine)
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
TRYBA,TAMM Y 05/03 [facility] Out[facility] Encounter [id number] 05/03 [facility] Out[facility] Encounter [id number] 05/03 [facility] Outpatient Encounter [id number] 05/06 [facility] PRO PHONE CALL 5-10 MIN [id number] Diagnos is: ICD-10- CM R00.1 Bradyca rdia, unspeci fied
GRIFFIN MAO R 05/06 [facility] Out[facility] Encounter [id number] 05/06 [facility] Out[facility] Encounter [id number] 05/07 [facility] Outpatient Encounter [id number]/08 [facility] Out[facility] Encounter [id number] 05/09 [facility] OFFICE O/P EST MOD 30 MIN [id number] Diagnos is: ICD-10- CM L57.0 [facility]inic [facility] is
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
TRYBA,TAMM Y 06/04 [facility] [place] OFF[place] O/P EST LOW 20 MIN [id number] [id number] Diagnos is: ICD-10- CM L60.0 Ingrowi ng nail
RENÉ SHAY ES F 06/11 [place] OFF/OP EST MAY X REQ PHY/QHP [id number] [id number] 11 Diagnos is: ICD-10- CM L02.31 Cutaneo us abscess of buttock
JIM,ER IC K 06/18 [place] [facility] Outpatient Encounter [id number] 06/18 [facility] [place] OFF/OP EST JANUARY X REQ PHY/QHP [id number] 1BY.[id number] 36 Diagnos is: ICD-10- CM L02.31 [place] abscess of buttock
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
TRYBA,TAMM Y 06/28 [facility] [place] MTMS BY PHARM ADDL 15 MIN [id number] Diagnos is: ICD-10- CM E11.9 Type 2 diabete s mellitu s without complic ations< br/> ARMSTRONG,IZ ABELA A 07/03 [place] [facility] Out[facility] Encounter [id number] 07/03 [facility] Out[facility] Encounter [id number] 07/08 [facility] Encounter [id number] 1.07/08 [facility] QNHP OL DIG ASSMT&MGMT 07-31 [id number] [id number] Diagnos is: ICD-10- CM E11.9 Type 2 diabete s mellitu s without complic ations< br/> BIBIANA MORRIS 07/09 [facility] Out[facility] Encounter [id number] 07/10 [facility] Out[facility] Encounter [id number] [id number] 07/11 [facility] Out[facility] Encounter [id number] [id number] 07/12 [facility] PRO PHONE CALL 5-10 MIN [id number] Diagnos is: ICD-10- CM 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
TRYBA,TAMM Y 07/12 [facility] PRO PHONE CALL 5-10 MIN [id number] Diagnos is: ICD-10- CM F32.A Depress ion, unspeci fied
TRYBA,TAMM Y 07/15 [facility] Outpatient Encounter [id number] 07/16 [facility] Outpatient Encounter [id number] 07/24 [facility] HC PRO PHONE CALL 5-10 MIN [id number] 1. 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
TRYBA,TAMM Y 07/26 [facility] Outpatient Encounter [id number] 1. 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
TRYBA,TAMM Y 07/30 [facility] [place] Outpatient Encounter [id number] 1BY. 32 07/30 [place] [facility] Outpatient Encounter [id number] 08/01 [facility] HC PRO PHONE CALL 5-10 MIN [id number] 1. 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
NELI, DENITA A 08/05 [facility] Outpatient Encounter [id number] 1.08/14 [facility] Outpatient Encounter [id number] 08/16 [facility] [place] MTMS BY PHARM ADDL 15 MIN [id number] Diagnos is: ICD-10- CM E11.9 Type 2 diabete s mellitu s without complic ations< br/> SANDRO ARMSTRONG CHAYO A 08/16 [place] [facility] Outpatient Encounter [id number] 1.08/16 [facility] Outpatient Encounter [id number] 08/19 [facility] Outpatient Encounter [id number] [facility] Social History Combined list of available smoking, tobacco, and other social history from Department of Defense and Veterans Affairs facilities. Social History Type Response Date Comment Source Tobacco smoking status [facility] NEVER USED 05/03/2024 [facility] History of tobacco use [facility] NEVER USED 12/12/2022 [facility] [place] [facility] History of tobacco use [facility]-TO[facility]ACCO NEVER USED 07/06/2021 [facility] History of tobacco use [facility]-TOBACCO FORMER USER 04/30/2020 [facility] History of tobacco use [facility]-TOBACCO QUIT 15 YRS OR MORE 01/09/2019 [facility] History of tobacco use QUIT TOBACCO USE > 7 YEARS AGO 02/13/2018 [facility] History of tobacco use LIFETIME NON-TOBACCO USER 02/28/2017 quit 1976 [facility] History of tobacco use QUIT TOBACCO USE > 7 YEARS AGO 11/17/2015 [facility] History of tobacco use QUIT TOBACCO USE > 7 YEARS AGO 02/08/2002 Patient states he smoked from age [age] and quit. [facility] History of tobacco use NON-TOBACCO USER 08/10/2001 Stopped tobacco 35 years ago [facility] Plan of Care List of future care activities from Department of Veterans Affairs facilities. Additional future care activities may be listed in the Assessment and Plan section. Date/Time Care Activity Care Activity Detail Facili ty 08/22/2024 AMBULATORY - MEDICINE AMBULATORY - [facility]ICI [facility] [place] [facility] 08/26/2024 AMBULATORY - MEDICINE AMBULATORY - [facility]ICI [facility] [place] [facility] 10/17/2024 AMBULATORY - MEDICINE AMBULATORY - MEDICI [facility] [place] [facility] 10/24/2024 [facility]BULAT[facility] [place] [facility] 10/29/2024 AMBULATORY - MEDICINE AMBULATORY - MEDICI [facility] 12/12/2024 AMBULATORY - MEDICINE AMBULATORY - MEDICI [facility] [place] [facility] 07/16/2024 Consult Order [facility] [place] Cons [employer] [facility]
--- OUTSIDE RECORDS SUMMARY | 2024-08-21 23:23 | XMS_ITS | Continuity of Care Document ---
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 Refills 11, Maintenance, 07/16/24 10:13:00 AM EST, Route to Pharmacy Electronically, [facility], Partial fill upon patient request if the prescription is for a schedule II opioid drug., 170, cm, 07/16/24 10:04:00 EST, Height Start Date: 07/16/24 Status: Ordered Quantity: 30.0 Unit: tablet Repeat number: 12 chlorthalidone 25 mg oral tablet 25 mg, 1, tablet, By Mouth, Daily in AM, # 30 tablet, Refills 0, Tot. Refills 0, Maintenance, 10/09/21 9:40:00 AM EST, Route to Pharmacy Electronically, [facility], Partial fill upon patient request if the prescription is for a schedule II opioid drug., 81, kg, 10/08/21 20:16:00 EST, Dry Weight Start Date: 10/09/21 Status: Ordered Quantity: 30.0 Unit: tablet Repeat number: 1 cloNIDine 0.1 mg oral tablet 0.1 mg, 1, tablet, By Mouth, Daily at bedtime, Refills 0, Maintenance, 10/08/21 8:39:00 PM EST, Partial fill upon patient request if the prescription is for a schedule II opioid drug. Start Date: 10/08/21 Status: Ordered Repeat number: 1 diazepam 2 mg oral tablet 2 mg, 1, tablet, By Mouth, Daily, PRN, Refills 0, Maintenance, as needed for anxiety, 10/08/21 8:41:00 PM EST, Partial fill upon patient request if the prescription is for a schedule II opioid drug. Start Date: 10/08/21 Status: Ordered Repeat number: 1 finasteride 5 mg oral tablet 1 tablet = 5 mg, By Mouth, Daily in AM, # 30 tablet, 0 Refills, Maintenance, 10/08/21 8:44:00 PM EST, Tablet, Partial fill upon patient request if the prescription is for a schedule II opioid drug. Start Date: 10/08/21 Status: Ordered Quantity: 30.0 Unit: tablet Repeat number: 1 Lantus Inj = 12 units, Subcutaneous Injection, Daily at bedtime, 0 Refills, Maintenance, 10/08/21 8:45:00 PM EST, Injection, Partial fill upon patient request if the prescription is for a schedule II opioid drug. Start Date: 10/08/21 Status: Ordered Repeat number: 1 NovoLog Inj Subcutaneous Infusion, 3 times a day before meals, 0 Refills, Maintenance, 07/16/24 10:06:00 AM EST,Partial fill upon patient request if the prescription is for a schedule II opioid drug. Start Date: 07/16/24 Status: Ordered Repeat number: 1 NovoLog Inj See Instructions, Sliding scale Subcutaneous Infusion 3 times a day before meals, 0 Refills, Maintenance, 10/08/21 8:46:00 PM EST, Partial fill upon patient request if the prescription is for a schedule II opioid drug. Start Date: 10/08/21 Status: Ordered Repeat number: 1 Ozempic Subcutaneous Infusion, Daily, 0 Refills, Maintenance, 07/16/24 10:06:00 AM EST, Partial fill upon patient request if the prescription is for a schedule II opioid drug. Start Date: 07/16/24 Status: Ordered Repeat number: 1 Ozempic (1 mg dose) = 1 mg, Subcutaneous Infusion, Every Monday, 0 Refills, Maintenance, 10/08/21 8:45:00 PM EST, Partial fill upon patient request if the prescription is for a schedule II opioid drug. Start Date: 10/08/21 Status: Ordered Repeat number: 1 Sildenafil = 100 mg, 0 Refills, Maintenance, 01/09/23 1:13:00 PM EDT, Partial fill upon patient request if the prescription is for a schedule II opioid drug. Start Date: 01/09/23 Status: Ordered Repeat number: 1 Valsartan = 320 mg, By Mouth, Daily in AM, 0 Refills, Maintenance, 10/08/21 8:37:00 PM EST, Partial fill upon patient request if the prescription is for a schedule II opioid drug. Start Date: 10/08/21 Status: Ordered Repeat number: 1 Problem List Condition Confirmation Course Effective Dates Status Health St atus Informant Sleep related hypoxia Confirmed Active Obstructive sleep apnea Confirmed Active Periodic limb movement Confirmed Active Vital Signs Most recent to oldest [Reference Range]: 1 Height 170 cm (07/16/24 10:04 AM) Weight 79.3 kg (07/16/24 10:04 AM) Oxygen Saturation [94-100 %] 97 % (07/16/24 10:04 AM) Pulse Rate [55-90 bpm] 94 bpm *H* (07/16/24 10:04 AM) Body Mass Index [18.5-24.99 kg/m2] 27.44 kg/m2 *H* (07/16/24 10:04 AM) Blood Pressure [90-138/55-84 mm Hg] 159/ 76mm Hg *H* (07/16/24 10:04 AM) Mode of Delivery (Oxygen) Room air (07/16/24 10:04 AM) Blood pressure sites Arm, left (07/16/24 10:04 AM) Weight Obtained Via Standing scale (07/16/24 10:04 AM) Cardiology Outpatient Note * Mitchel BARNES, Kasey Gunter: PERFORM Event Display: Cardiology Note Office Authored Date: [id number] Patient: ??GILL DELUNA ? Age:??79 Years?Sex:??Male?:??1945?? Patient Hx Cardiology Shared Clinical Summary #Obstructive sleep apnea #Mobitz 1??and??possible third-degree heart block??on ZIO??echocardiogram 01/30??preserved LV and RVfunction no regional wall motion abnormalities mild left ventricular hypertrophy,??sclerotic valveswithout significant valvular disease #Hypertension # DM # Arachnoid cyst History of Present Illness/Interval History 79-year-old male??with complete heart block and multiple pauses??during sleep??while he was on beta-ray. ??Beta-ray was stopped??and subsequent??ZIO??showed??transient complete heart block during sleep??change in 2-1 reviewed by EP not felt an indication for pacemaker at this time unless sym ptomatic. ??He also has a history of hypertension, obstructive sleep apnea and diabetes. ??He is here for??yearly cardiology follow-up. ?? He is not having any LH spells or syncope. He is very active and has no chest pain, dyspnea, edema, presyncope or any cardiac sx.??He feels well.?? Physical Exam Vitals & Measurements HR:??94??(Peripheral)?? BP:??159/76?? SpO2:??97%?? HT:??170??cm?? WT:??79.3??kg?? BMI:??27.44?? Weight lb/oz: 174 lb 13 oz General:??In no acute distress HEENT:??Sclerae anicteric, mucous membranes moist Cardiovascular:?Regular rhythm, normal first and second heart sounds.?No murmurs or gallops.?No JVP??Respiratory:?Clear to auscultation all lung kramer?? Extremities: Warm,??noedema Neuro:??Nonfocal??Psych: Alert and oriented with appropriate affect. ?? ECG in Sep 2023 with??Jasnckelonnie.?? Assessment/Plan Orders: Amlodipine, 2.5 mg, 1, tablet, By Mouth, Daily, # 30 tablet, Refills 11, Tot. Refills 11, Maintenance, 07/16/24 10:13:00 EST, Route to Pharmacy Electronically, [facility], Partial fillupon patient request if the prescription is for a schedule II o... Echo Complete Follow up Appointment Follow up Appointment ?? #Bradycardia, sinus pauses and??possible transient third-degree heart block, marked first degreeAV block , tapered off of beta-ray with repeat ZIO off med showing transient complete heart block??during sleep and transient 2- 1??reviewed by EP??not an indication for pacemaker at this time unless patient??develops symptoms. No symptoms at this time.?? #Hypertension: he had a few arm hives when he took nifedipine but not an overall body rash so is willing to try a small dose of amlodipine 2.5 daily #Obstructive sleep apnea compliant with BiPAP, considered to be leading to the transient episodes of??heart block at night: asx at this time, #Diabetes controlled # Elevated trop in the setting of HTN, check echo ?? Plan echo amlodipine 2.5 daily nurse bp check in 6 weeks update zio f/u 6 months ?? total time 35 min Problem List/Past Medical History Ongoing Obstructive sleep apnea Periodic limb movement Sleep related hypoxia Procedure/Surgical History No qualifying data available. Home Medications amLODIPine 2.5 mg oral tablet, 2.5 mg= 1 tablet, By Mouth, Daily, 11 refills chlorthalidone 25 mg oral tablet, 25 mg= 1 tablet, By Mouth, Daily in AM cloNIDine 0.1 mg oral tablet, 0.1 mg= 1 tablet, By Mouth, Daily at bedtime diazepam 2 mg oral tablet, 2 mg= 1 tablet, By Mouth, Daily, PRN finasteride 5 mg oral tablet, 5 mg= 1 tablet, By Mouth, Daily in AM Lantus Inj, 12 units, Subcutaneous Injection, Daily at bedtime NovoLog Inj, Subcutaneous Infusion, 3 times a day before meals NovoLog Inj, See Instructions Ozempic, Subcutaneous Infusion, Daily Ozempic (1 mg dose), 1 mg, Subcutaneous Infusion, Every Monday Sildenafil, 100 mg Valsartan, 320 mg, By Mouth, Daily in AM Lab Results Cardiology Labs WBC: 10.2 k/mm3 (10/11/23) RBC: 5.32 m/mm3 (10/11/23) Hgb: 16.5 Gm/dL (10/11/23) Hct: 47.1 % (10/11/23) MCV: 88.5 femtoliters (10/11/23) MCH: 31 pg (10/11/23) MCHC: 35 g/dL (10/11/23) Platelet Count: 168 k/mm3 (10/11/23) RDW-SD: 42.4 femtoliters (10/11/23) Nucleated RBC (Automated): 0 #/100 WBC'S (10/11/23) Abs. Neut:??8.2 k/mm3??High (10/11/23) Abs. Lymph: 1.2 k/mm3 (10/11/23) Abs. Keith: 0.8 k/mm3 (10/11/23) Abs. Eo: 0 k/mm3 (10/11/23) Abs. Baso: 0 k/mm3 (10/11/23) Neut %:??80.5 %??High (10/11/23) Keith %: 7.3 % (10/11/23) Eos %: 0.3 % (10/11/23) Baso %: 0.2 % (10/11/23) Imm Gran: 0.3 % (10/11/23) Abs. Imm Gran: 0 k/mm3 (10/11/23) Sodium: 143 mmol/L (10/11/23) Potassium: 4.2 mmol/L (10/11/23) Chloride: 102 mmol/L (10/11/23) Bicarbonate Level: 28 mmol/L (10/11/23) Glucose Level:??158 mg/dL??High (10/11/23) BUN:??27 mg/dL??High (10/11/23) Creatinine-Blood: 1 mg/dL (10/11/23) Calcium: 9.8 mg/dL (10/11/23) TSH:??5.05 uIU/mL??High (10/12/23) Free T4: 0.99 ng/dL (10/12/23) Diagnostic Impression ECG ECG 12-Lead ?? 16:48:36 Ventricular Rate: 91 BPM Atrial Rate: 119 BPM QRS Duration: 90 ms Q-T Interval: 326 ms QTC Calculation(Bazett): 400 ms R Wilton: -34 degrees T Wilton: 74 degrees Sinus tachycardia with 2nd degree A-V block (Mobitz I) with occasional premature ventricular complexeses Left axis deviation Abnormal ECG When compared with ECG of 09-JAN-2023 11:02, Second degree AV block has replaced 1st degree A-V block Premature ventricular complexes are now Present Confirmed by ARNOLD FOUNTAIN MD ([id number]) on 10/15/2023 3:30:13 PM ?? [place]: ARNOLD FOUNTAIN MD ?? Signed By: Arnold Fountain MD ?? ECG 12-Lead ?? 16:48:36 Please click on pdf link to open report ?? Signed By: Arnold Fountain MD Note * Debbie Wilson: PERFORM Event Display: Patient Education/Instruction Authored Date: [id number] Ambulatory Adult Visit Summary [facility] Office [address] [place] [address] Name: GILL DELUNA : 1945?? Visit: 07/16/2024 09:08?? Ambulatory Visit Instructions ?? Your Care Team Primary Care Provider Yi Darnell MD, Molly Ngo? This Visit Provider Kasey Grullon MD Vitals Signs Pulse Rate:??94 bpm??High Height: 170 cm Systolic Blood Pressure:??159 mm Hg??High Weight: 79.3 kg Diastolic Blood Pressure: 76 mm Hg Body Mass Index:??27.44 kg/m2??High Oxygen Saturation: 97 % Body surface area: 1.94 What to do next Scheduled Follow-Up Appointments Monday 11:30 AM EST ?? Where: [facility] Office [address] [place] [address]- Status: Pending Follow-Up Appointments Follow up Appointment - Ordered?-- 6 weeks, nurse bp check, 07/16/24 10:18:00 EST Follow up Appointment - Ordered?-- 6 months, 07/16/24 10:19:00 EST Medications The list below reflects the information in our records and provided by you today along with any changes made during this visit. Please continue your medications until treatment is completed or stopped by your provider. If this is different from the information you have or there are other questions,please contact the prescribing provider. What How Much When Instructions New Amlodipine (amLODIPine 2.5 mg oral tablet) 1 tab(s) Oral Daily Refills: 11 Pickup at [facility] Unchanged Chlorthalidone (chlorthalidone 25 mg oral tablet) 1 tab(s) Oral Daily in the morning Unchanged Clonidine (cloNIDine 0.1 mg oral tablet) 1 tab(s) Oral Daily at Bedtime Unchanged Diazepam (diazepam 2 mg oral tablet) 1 tab(s) Oral Daily as needed for as needed for anxiety Unchanged Finasteride (finasteride 5 mg oral tablet) 1 tab(s) Oral Daily in the morning Unchanged Insulin Aspart (NovoLog Inj) See instructions Sliding scale Subcutaneous Infusion 3 times a day before meals ?? Unchanged Insulin Aspart (NovoLog Inj) Subcutaneous Infusion 3 times a day before meals Unchanged Insulin Glargine (Lantus Inj) 12 unit(s) Subcutaneous Injection Daily at Bedtime Unchanged semaglutide (Ozempic (1 mg dose)) 1 Milligram Subcutaneous Infusion Every Monday Unchanged semaglutide (Ozempic) Subcutaneous Infusion Daily Unchanged Sildenafil 100 Milligram Unchanged Valsartan 320 Milligram Oral Daily in the morning Pharmacy Information [facility]: [address], [place] [id number] [phone] Medications and Immunizations Administered Medications Given During Visit No medications given during this visit.?? Allergies (NKA means No Known Allergies) Chantix NIFEdipine Common Emergency Awareness Tips IS IT A STROKE? Act FAST and Check for these signs: FACE Does the face look uneven? ARM Does one arm drift down? SPEECH Does their speech sound strange? TIME Call at any sign of stroke ?? Heart Attack Signs Chest discomfort: Most heart attacks involve discomfort in the center of the chest and lasts more than a few minutes, or goes away and comes back. It can feel like uncomfortable pressure, squeezing, fullness or pain. Discomfort in upper body: Symptoms can include pain or discomfort in one or both arms, back, neck, jaw or stomach. Shortness of breath: With or without discomfort. Other signs: Breaking out in a cold sweat, nausea, or lightheaded. Remember, MINUTES DO MATTER. If you experience any of these heart attack warning signs, call to get immediate medical attention! ?? Smoking can increase your chances of developing chronic health problems and can cause harmful effects to other family members in your house. If you smoke, you are strongly encouraged to quit. Please call [facility] Link at [phone] or [phone] [employer] ([phone]) or log in to [email or web address] for referrals to smoking cessation programs. ?? The National Suicide Prevention Hotline is available 03/04 if you or someone you know needs to find a reason to keep living. By calling 1-377-892-[employer] (1597) you'll be connected to a skilled, trained counselor at a crisis center in your area. [facility] Portal You can view and manage your care through the patient portal or by using a health care meng of your choosing. [employer] is a website that allows you to securely view your medical information including your hospital discharge summary, office visit summaries, medications and follow-up visits. You can also request appointments, renew medications, and request access to your medical information using a health care meng of your choosing, or just ask a question. You can enroll at [email or web address] or register during your next office visit. [facility], in keeping with [employer] guidance, no longer requires face masks for staff, patientsor visitors in most situations. Similiar to time spent indoors at other locations, there is the chance that you were exposed to repiratory viruses during your time with us (such as flu or COVID-19). If you develop symptoms concerning for a viral respiratory infection, please seek testing (and treatment if indicated) from your medical provider or home test kit. ?? Disclaimer: The information provided is of a general nature and is intended to be used in conjunction with the recommendations and advice of your health care practitioner. Every effort has been made to ensure that the information provided is accurate and complete at the time it is provided to you however, as your needs change, or, as new information becomes available, different or additional instructions may be required. ?? If you have questions, please consult with your primary care provider or pharmacist, as appropriate. This information is not intended to serve as substitution for assessment and evaluation by a qualified health care provider. If you do not have a primary care provider, you may find a [facility] provider by calling [facility] at [phone]. Patient Care team information Care Team Personnel Name: Yi Darnell MD, Molly Ngo Position: Reference Physician Member Role: PCP Address: [address] [place] [id number] Telecom: Care Team Related Persons Name: MADAI DELUNA Name: MAXI DELUNA
--- OUTSIDE RECORDS SUMMARY | 2024-08-21 23:25 | XMS_ITS | Encounter Summary ---
Author Name [facility] [place] [facility] [place] Address [address] [place] [address] Care Team Providers Care Customer Sales Distributor Name Role Phone MARIIA BROUSSARD Primary Care Provide r Unavailable Insurance Providers: All historical and current Section Date Range: From patient's date of to the date document was created. This section includes the names of all active insurance providers for the patient. Insurance Provider Type of Coverage Plan Name Start of Policy Coverage End of Policy Coverage Group Number Member ID Insurance Provider's Telephone Number Policy Mancera's Name Patient's Relationship to Policy Mancera EXPRESS SCRIPTS ([id number]) PRESCRIPT ION [facility] Mar 11, 2018 [id number] MADAI DELUNA OTHER RELATIONSHIP [facility] PREFERRED PROVIDER ORGANIZAT ION (PPO) Jun 11, 2011 [id number] [phone] MADAI DELUNA PATIENT HUMANA [facility] (WNR) MEDICARE ADVANTAGE [facility] (WNR) Sep 11, 2022 [id number] [phone] GILL DELUNA PATIENT MEDICARE (WNR) MEDICARE (M) PART A January 10, 2012 PART A [id number] GILL DELUNA PATIENT MEDICARE (WNR) MEDICARE (M) PART B January 10, 2012 PART B [id number] [phone] GILL DELUNA PATIENT MEDICARE (WNR) MEDICARE (M) PART A January 10, 2012 PART A [id number] [phone] GILL DELUNA PATIENT UNICARE PREFERRED PROVIDER ORGANIZAT ION (PPO) [place] RE STATE INDE* * Mar 11, 2015 [id number] MADAI DELUNA SPOUSE [facility] (WNR) MEDICARE ADVANTAGE [facility] (WNR) Mar 11, 2021 [id number] GILL DELUNA PATIENT WELLCARE [facility] (WNR) MEDICARE ADVANTAGE [facility] (WNR) Sep 11, 2021 [id number] [phone] GILL DELUNA PATIENT Selected Encounter This section includes the information on record at [place] for the Encounter. Date/Time Encounter Type Encounter Description Reason Pro vider Source May 03, 2024 11:40 AM Outpatient Encounter ADMIN PAT ACTIVTIES (MASNONCT) IHE Encounter Template Text not used by [place] Plan of Treatment: Future Appointments (+ 6 months) and Future Tests (+/- 45 days) The Plan of Treatment section includes future care activities for the patient from all [place] treatmentfacilities. This section includes future appointments and future orders which are active, pending or scheduled. Future Appointments This section includes appointments that were scheduled to occur 6 months from the date of the Encounter, up to a maximum of 20 appointments. The data comes from all [place] treatment facilities. Appointment Date/Time Appointment Type Appointme nt Facility Name May 16, 2024 11:30 AM AMBULATORY - MEDICINE [place] [facility] [facility] Jun 11, 2024 08:30 AM [facility]ICINE [facility] Jun 18, 2024 02:15 PM AM[facility]ULATORY - [facility]ICINE [facility] Jun 20, 2024 10:45 AM AMBULATORY - MEDICINE [facility] Jul 03, 2024 09:30 AM AMBULATORY - MEDICINE [place] [facility] Jul 16, 2024 09:40 AM AMBULATORY - MEDICINE [place] [facility] Jul 31, 2024 02:00 PM AMBULATORY - MEDICINE [place] [facility] [place] [facility] Aug 16, 2024 11:00 AM AMBULATORY - MEDICINE [place] [facility] Aug 22, 2024 01:00 PM AMBULATORY - MEDICINE [place] [facility] Aug 26, 2024 03:30 PM AMBULATORY - MEDICINE [place] [facility] Oct 17, 2024 01:00 PM AMBULATORY - MEDICINE [place] [facility] [place] [place] [facility] Oct 24, 2024 10:30 AM AMBULATORY - PSYCHIATRY [place] [facility] [facility] Oct 24, 2024 10:30 AM AMBULATORY - [place] [facility] Oct 29, 2024 08:30 AM AMBULATORY - MEDICINE [place] Active, Pending, and Scheduled Orders This section includes a listing of several types of active, pending, and scheduled orders, including clinic medications orders, diagnostic test orders, procedure orders and consult orders; where the start date of the order is 45 days before the date of the Encounter or 45 days after the date of theEncounter. The data comes from all [place] treatment facilities. Test Date/Time Test Type Test Details Facility Name May 03, 2024 03:01 PM Consult Order [facility] OUTPT IFC CT Cons [facility] Technician's Choice [place] May 09, 2024 10:35 AM Consult Order [facility]-CARDIOLOGY Cons [facility] Technician's [facility] Lab Results: +/- 30 days of the encounter This section includes the Chemistry and Hematology Lab Results on record with [place] for the patient. Radiology Reports and Pathology Reports are provided separately, in subsequent sections. Lab Results This section contains the Chemistry/Hematology Results that were resulted 30 days before or 30 daysafter the date of the Encounter. Date/Time Source Result Type Result - Unit Interpretation Reference Range Comment May 07, 2024 08:37 AM [place] PSA Specimen Type: SERUM No comment entered. Ordering Provider: MARIIA ABBOTT Report Released Date/Time: May 04, 2024 12:14 AM Reporting Lab: [facility] [address] [address] Performing Lab: [facility] [address] [address] PSA 2.56 ng/mL 0.00-4.00 May 03, 2024 01:53 PM [place] HEMOGLOBIN A1C PANEL Specimen Type: BLOOD Comment: Values obtained from A1C measurements can vary. For atypical A1C assays, a reported value of 7.0 could actually be between 6.72 and 7.28 if measured by a reference method. A reported value of 9.0 could actually be between 8.73 and 9.27. Ref: http://www.ngs p.org/CAPdata. asp Ordering Provider: MARIIA ABBOTT Report Released Date/Time: Oct 30, 2023 05:07 PM Reporting Lab: [address] [address] Performing Lab: [address] [address] HEMOGLOBIN A1C 8.1 H 4.0-5.6 May 03, 2024 01:53 PM [place] LIPID PANEL FASTING Specimen Type: SERUM No comment entered. Ordering Provider: MARIIA ABBOTT Report Released Date/Time: Oct 30, 2023 05:07 PM Reporting Lab: [address] [address] Performing Lab: [address] [address] CHOLESTEROL 108 mg/dL TRIGLYCERIDE 79 mg/dL 0-150 LDL calculated 47 mg/dL 0-129 CHOL/HDL 2.4 HDL CHOLESTEROL 45 mg/dL 40-60 May 03, 2024 01:53 PM [place] LIVER FUNCTION Specimen Type: SERUM No comment entered. Ordering Provider: MARIIA ABBOTT Report Released Date/Time: Oct 30, 2023 05:07 PM Reporting Lab: [address] [address] Performing Lab: [address] [address] PROTEIN,TOTAL 7.3 g/dL 6.0-8.3 ALBUMIN 3.8 g/dL 3.5-5.0 ALKALINE PHOSPHATASE 73 U/L 40-150 AST 21 U/L 5-34 ALT 22 U/L BILIRUBIN, TOTAL 0.5 mg/dL 0.2-1.2 May 03, 2024 01:53 PM [place] BASIC METABOLIC PANEL (fasting) Specime n Type: SERUM No comment entered. Ordering Provider: MARIIA ABBOTT Report Released Date/Time: Oct 30, 2023 05:07 PM Reporting Lab: [address] [address] Performing Lab: [address] [address] UREA NITROGEN 46 mg/dL H 7-25 GLUCOSE 294 mg/dL H 65-100 SODIUM 137 mmol/L 135-145 POTASSIUM 4.4 mmol/L 3.5-5.0 CHLORIDE 105 mmol/L 100-110 CO2 21 meq/L 20-30 CREATININE, Serum 1.05 mg/dL 0.50-1.40 eGFR(CKD-EPI 2020) 73 mL/min >60 May 03, 2024 01:53 PM [place] TSH Specimen Type: SERUM No comment entered. Ordering Provider: MARIIA ABBOTT Report Released Date/Time: Oct 30, 2023 05:07 PM Reporting Lab: [address] [address] Performing Lab: [address] [address] TSH 1.73 u[IU]/mL 0.35-5.00 May 03, 2024 01:53 PM [place] VITAMIN D (25-OH) Specimen Type: SERUM No comment entered. Ordering Provider: MARIIA ABBOTT Report Released Date/Time: Oct 30, 2023 05:07 PM Reporting Lab: [address] [address] Performing Lab: [address] [address] VITAMIN D (25-OH) 24 ng/mL 20-50 May 03, 2024 01:53 PM [place] MICROALBUMIN CREATININE RATIO PANEL Spe cimen Type: URINE No comment entered. Ordering Provider: MARIIA ABBOTT Report Released Date/Time: Oct 30, 2023 05:07 PM Reporting Lab: [address] [address] Performing Lab: [address] [address] MICROALBUMIN/C REATININE RATIO 128.4 mg/g H 0-29.9 MICROALBUMIN,Q UANTITATIVE 5.4 mg/dL RR UNAVAIL CREATININE URINE 42.05 mg/dL May 03, 2024 01:53 PM [place] CALCIUM Specimen Type: SERUM No comment entered. Ordering Provider: MARIIA ABBOTT Report Released Date/Time: Oct 30, 2023 05:07 PM Reporting Lab: [address] [address] Performing Lab: [address] [address] CALCIUM 9.7 mg/dL 8.5-10.2 May 03, 2024 01:53 PM [place] CBC AND DIFF (AUTO) Specimen Type: BLOOD No comment entered. Ordering Provider: MARIIA ABBOTT Report Released Date/Time: Oct 30, 2023 05:07 PM Reporting Lab: [address] [address] Performing Lab: [address] [address] WBC 6.25 10*3/uL 4.50-11.00 RBC 5.12 10*6/uL 4.23-5.66 HGB 15.5 g/dL 12.8-17 HCT 44.7 39.2-50.4 MCV 87.3 fL 82-99 MCHC 34.7 g/dL 30.8-35.1 PLT 165 10*3/uL 140-360 RDW-CV 12.8 12.0-16.0 MONO, ABS 0.46 10*3/uL 0.30-1.10 MCH 30.3 pg 26.2-32.6 NEUT % 73.7 43.7-75.8 LYMPH % 16.2 14.0-42.3 MONO % 7.4 5.1-13.7 EOS % 1.9 0.4-6.8 BASO % 0.3 0.1-2.0 NEUT, ABS 4.61 10*3/uL 2.20-7.60 LYMPH, ABS 1.01 10*3/uL 1.00-3.20 EOS, ABS 0.12 10*3/uL 0.03-0.44 BASO, ABS 0.02 10*3/uL 0.01-0.13 IMMATURE GRAN % 0.5 0.0-0.7 IMMATURE GRAN, ABS 0.03 10*3/uL 0.00-0.06 NRBC % 0.0 0.0-0.0 NRBC, ABS 0.00 10*3/uL 0.00-0.00 Social History: Smoking Status (Most current) and Tobacco Use (All prior to encounter date) This section includes the most current, and the historical, smoking and tobacco- related health factors from the [place] facility where the Encounter took place. Current Smoking Status This section includes the most current smoking, or tobacco-related health factor, from the [place] facility where the Encounter took place. Date/Time Current Smoking Status Comment Nadine jose May 03, 2024 10:00 AM VA-TOBACCO NEVER USED [facility] Tobacco Use History This section includes a history of the smoking, or tobacco-related health factors, that were collected on or before the date of the Encounter. The data comes from the [place] facility where the Encounter took place. Date/Time Smoking Status/Tobacco Use Comment Edis acmorgan Dec 12, 2022 03:10 PM VA-TOBACCO NEVER USED [facility] Encounter Notes: All associated encounter notes This section contains the clinical notes associated to the Encounter. Date/Time Encounter Note(s) Provider Source May 08, 2024 10:31 AM ADDENDUM: LOCAL TITLE: Addendum STANDARD TITLE: ADDENDUM DATE OF NOTE: MAY 08, 2024@10:31:54 ENTRY DATE: MAY 08, 2024@10:31:55 AUTHOR: ZAID ODONNELL COSIGNER: URGENCY: STATUS: COMPLETED Spoke with . He state he wanted to see his PCP as a follow-up because he had prostate surgery done in March at [facility]. He denies any issues at this time. He reports he saw the surgeon last week and everything was fine. He states he would like to wait until his PCP returns to see her. This writer producer advised of the availability of sick call and sick call hours should he need to be seen urgently. He verbalized understanding. LEILAA -- Please obtain surgical records from [facility]. -- Also, please assist in rescheduling for a later date. Thank you. /es/ ZAID ODONNELL RN REGISTERED NURSE Signed: 05/08/2024 10:36 Receipt Acknowledged By: 05/08/2024 11:49 /es/ LORETA SINGLETARY AMSA === --- Original Document --- 05/03/24 CCC: SCHEDULING ADMINISTRATION: Patient Demographics Patient Name: GILL DELUNA Patient Primary Phone: [phone] Patient Primary Address: [address] [place] [address] Patient : 1945 Patient Age: 79 Caller/Recipient Relation to Patient: Self Scheduling Cannot Complete Scheduling Action Reason: Restricted / Unavailable Clinic Requested Service(s): Primary Care Scheduling Note Reason: Cannot Complete Appointment Request Open Request: None of the above Administrative Administrative Note Reason: Other Administrative Note Comments: [place] called requesting to reschedule appointment with PC. [place] stated the appointment is a post surgery appointment from 03/25/24. Medical Leader unable to reschedule Please advise IMPORTANT: This note was created by [facility] Clinical Contact Center staff. Please do not alert the staff member by adding them as a signer for future communications. Alerts are not monitored by this user. /es/ RAMON CELIS 1 [facility] AMSA Signed: 05/03/2024 11:40 Receipt Acknowledged By: 05/08/2024 10:32 /es/ ABDI ALMARAZ LPN LPN 05/08/2024 10:36 /es/ ZAID ODONNELL RN REGISTERED NURSE 05/08/2024 ADDENDUM STATUS: UNSIGNED You may not VIEW this UNSIGNED Addendum. ZAID ODONNELL [place] [facility] [place] [facility] May 03, 2024 11:40 AM ADMINISTRATIVE NOTE: LOCAL TITLE: CCC: SCHEDULING ADMINISTRATION STANDARD TITLE: ADMINISTRATIVE NOTE DATE OF NOTE: MAY 03, 2024@11:40:19 ENTRY DATE: MAY 03, 2024@11:40:19 AUTHOR: RAMON GUERRERO EXP COSIGNER: URGENCY: STATUS: COMPLETED CCC: SCHEDULING ADMINISTRATION Has ADDENDA Patient Demographics Patient Name: GILL DELUNA Patient Primary Phone: [phone] Patient Primary Address: [address] [place] [address] Patient : 1945 Patient Age: 79 Caller/Recipient Relation to Patient: Self Scheduling Cannot Complete Scheduling Action Reason: Restricted / Unavailable Clinic Requested Service(s): Primary Care Scheduling Note Reason: Cannot Complete Appointment Request Open Request: None of the above Administrative Administrative Note Reason: Other Administrative Note Comments: called requesting to reschedule appointment with PC. stated the appointment is a post surgery appointment from 03/25/24. Medical Leader unable to reschedule Please advise IMPORTANT: This note was created by [facility] Clinical Contact Center staff. Please do not alert the staff member by adding them as a signer for future communications. Alerts are not monitored by this user. /simone/ RAMON CELIS 1 [facility] A[facility] Signed: 05/03/2024 11:40 Receipt Acknowledged By: 05/08/2024 10:32 /es/ ABDI ALMARAZ LPN LPN 05/08/2024 10:36 /es/ ZAID ODONNELL RN REGISTERED NURSE 05/08/2024 ADDENDUM STATUS: COMPLETED Spoke with . He state he wanted to see his PCP as a follow-up because he had prostate surgery done in March at [facility]. He denies any issues at this time. He reports he saw the surgeon last week and everything was fine. He states he would like to wait until his PCP returns to see her. This writer producer advised of the availability of sick call and sick call hours should he need to be seen urgently. He verbalized understanding. MARGAUX -- Please obtain surgical records from [facility]. -- Also, please assist in rescheduling for a later date. Thank you. /simone/ ZAID ODONNELL RN REGISTERED NURSE Signed: 05/08/2024 10:36 Receipt Acknowledged By: 05/08/2024 11:49 /simone/ LORETA DAMICO 05/08/2024 ADDENDUM STATUS: COMPLETED Medical Leader spoke with to reschedule PCP appointment and requested records. /essence DAMICO Signed: 05/08/2024 11:50 RAMON GUERRERO [place] [facility]
--- OUTSIDE RECORDS SUMMARY | 2024-08-21 23:25 | XMS_ITS | Encounter Summary ---
Author Name [facility] [place] Address [address] [place] [address] Care Team Providers Care Chair Inspector Name Role Phone MARIIA BROUSSARD Primary Care [...] Patient's Relationship to Policy [employer] ([id number]) PRESCRIPT ION [facility] Mar 11, 2018 [id number] MADAI DELUNA OTHER RELATIONSHIP [facility] PREFERRED PROVIDER ORGANIZAT KIANNA (PPO) Jun 11, 2011 [id number] MADAI DELUNA PATIENT HUMANA [facility] (WNR) MEDICARE ADVANTAGE [facility] (WNR) Sep 11, 2022 [id number] [phone] [place] PATIENT MEDICARE (WNR) MEDICARE (M) PART A January 10, 2012 PART A [id number] [phone] IOANA DELUNAAGUSTO PATIENT MEDICARE (WNR) MEDICARE (M) PART B January 10, 2012 PART B [id number] MIKIE GILL PATIENT MEDICARE (WNR) MEDICARE (M) PART A January 10, 2012 PART A [id number] [phone] GILL DELUNA PATIENT UNICARE PREFERRED PROVIDER ORGANIZAT ION (PPO) [place] RE STATE INDE* * Mar 11, 2015 [id number] MADAI DELUNA SPOUSE [facility] (R) MEDICARE ADVANTAGE MCR ([facility]) Mar 11, 2021 [id number] GILL DELUNA PATIENT WELLCARE [facility] (R) MEDICARE ADVANTAGE MCR ([facility]) Sep 11, 2021 [id number] [phone] GILL DELUNA PATIENT Selected Encounter This section includes the information on record at [place] for the Encounter. Date/Time Encounter Type Encounter Description Reason Pro vider Source IHE Encounter Template Text not used by [place]
--- OUTSIDE RECORDS SUMMARY | 2024-08-21 23:25 | XMS_ITS | Encounter Summary ---
Author Name [facility] [place] [place] Organization [facility] [place] [place] Address [address] [place] [address] Care Team Providers Care Dairy Nutritionist Name Role Phone MARIIA BROUSSARD Primary Care [...] Patient's Relationship to Policy [employer] ([id number]) PRESCRIPT ION [facility] Mar 11, 2018 [id number] MADAI DELUNA OTHER RELATIONSHIP [facility] PREFERRED PROVIDER ORGANIZAT ION (PPO) Jun 11, 2011 [id number] MADAI DELUNA PATIENT [employer] [facility] (WNR) MEDICARE ADVANTAGE [facility] (WNR) Sep 11, 2022 [id number] [phone] GILL DELUNA PATIENT MEDICARE (WNR) MEDICARE (M) PART A January 10, 2012 PART A [id number] GILL DELUNA PATIENT MEDICARE (WNR) MEDICARE (M) PART B January 10, 2012 PART B [id number] [phone] GILL DELUNA PATIENT MEDICARE (WNR) MEDICARE (M) PART A January 10, 2012 PART A [id number] GILL DELUNA PATIENT UNICARE PREFERRED PROVIDER ORGANIZAT ION (PPO) [facility] RE STATE INDE* * Mar 11, 2015 [id number] MADAI DELUNA SPOUSE [facility] (WNR) MEDICARE ADVANTAGE [facility] (WNR) Mar 11, 2021 [id number] GILL DELUNA PATIENT [facility] (WNR) MEDICARE ADVANTAGE [facility] (WNR) Sep 11, 2021 [id number] [phone] GILL DELUNA PATIENT Selected Encounter This section includes the information on record at [place] for the Encounter. Date/Time Encounter Type Encounter Description Reason Provider Source May 03, 2024 10:00 AM PRO PHONE CALL 21-30 MIN TELEPHONE PRIMARY CARE ICD-10-CM I11.9 Hypertensive heart disease without heart failure ALCIRA LAYNE [place] Encounter Template Text not used by [place] Assessments - Encounter Diagnoses This section includes the primary and secondary diagnoses documented for the Encounter. Date/Time Primary/Secondary Diagnosis Diagnosis Name Provider Source May 03, 2024 10:00 AM PRIMARY Hypertensive heart disease without heart failure ALCIRA LAYNE [facility] Plan of Treatment: Future Appointments (+ 6 months) and Future Tests (+/- 45 days) The Plan of Treatment section includes future care activities for the patient from all [place] treatmentfacilities. This section includes future appointments and future orders which are active, pending or scheduled. Future Appointments This section includes appointments that were scheduled to occur 6 months from the date of the Encounter, up to a maximum of 20 appointments. The data comes from all [place] treatment facilities. Appointment Date/Time Appointment Type Appointme nt Facility Name May 16, 2024 11:30 AM [facility] Jun 11, 2024 08:30 AM [facility] Jun 18, 2024 02:15 PM AMBULATORY - MEDICINE [facility] Jun 20, 2024 10:45 AM AMBULATORY - MEDICINE [facility] Jul 03, 2024 09:30 AM AMBULATORY - MEDICINE [facility] [place] [facility] Jul 16, 2024 09:40 AM AM[facility]ULATORY [facility] MEDICINE [facility] [place] [place] [facility] Jul 31, 2024 02:00 PM AMBULATORY - MEDICINE [facility] [place] [facility] Aug 16, 2024 11:00 AM AMBULATORY - MEDICINE [facility] [place] [facility] Aug 22, 2024 01:00 PM AMBULATORY - MEDICINE [facility] [place] [facility] Aug 26, 2024 03:30 PM AMBULATORY - MEDICINE [facility] [place] [facility] Oct 17, 2024 01:00 PM AMBULATORY - MEDICINE [facility] [place] [facility] Oct 24, 2024 10:30 AM AMBULATORY - PSYCHIATRY [facility] [place] [facility] Oct 24, 2024 10:30 AM AMBULATORY - [place]ATRY [place] [facility] Oct 29, 2024 08:30 AM AMBULATORY - [...] of theEncounter. The data comes from all [place] treatment facilities. Test Date/Time Test Type Test Details Facility Name May 03, 2024 03:01 PM Consult Order V[facility] [address] [facility] OUT[facility] IF [facility] May 09, 2024 10:35 AM Consult Order [facility]-CARDIOLOGY [facility] Lab Results: +/- 30 days of the encounter This section includes the Chemistry and Hematology Lab Results on record with [place] for the patient. Radiology Reports and Pathology Reports are provided separately, in subsequent sections. Lab Results This section contains the Chemistry/Hematology Results that were resulted 30 days before or 30 daysafter the date of the Encounter. Date/Time Source Result Type Result - Unit Interpretation Reference Range Comment May 07, 2024 08:37 AM [facility] PSA Specimen Type: SERUM No comment entered. Ordering Provider: MARIIA ABBOTT Report Released Date/Time: May 04, 2024 12:14 AM Reporting Lab: [facility] [place] [address] [address] Performing Lab: [facility] [address] [facility] [address] PSA 2.56 ng/mL 0.00-4.00 May 03, 2024 01:53 PM [facility] LIPID PANEL FASTING Specimen Type: SERUM No comment entered. Ordering Provider: MARIIA ABBOTT Report Released Date/Time: Oct 30, 2023 05:07 PM Reporting Lab: [facility] [address] [facility] [address] Performing Lab: [facility] [address] [facility] [address] CHOLESTEROL 108 mg/dL TRIGLYCERIDE 79 mg/dL 0-150 LDL calculated 47 mg/dL 0-129 CHOL/HDL 2.4 HDL CHOLESTEROL 45 mg/dL 40-60 May 03, 2024 01:53 PM [facility] HEMOGLOBIN A1C PANEL Specimen Type: BLOOD Comment: [...] Oct 30, 2023 05:07 PM Reporting Lab: [facility] [address] [address] Performing Lab: [facility] [address] HEMOGLOBIN A1C 8.1 H 4.0-5.6 May 03, 2024 01:53 PM [facility] LIVER FUNCTION Specimen Type: SERUM No comment entered. Ordering Provider: MARIIA ABBOTT Report Released Date/Time: Oct 30, 2023 05:07 PM Reporting Lab: [facility] [address] [facility] [address] Performing Lab: [facility] [address] PROTEIN,TOTAL 7.3 g/dL 6.0-8.3 ALBUMIN 3.8 g/dL 3.5-5.0 ALKALINE PHOSPHATASE 73 U/L 40-150 AST 21 U/L 5-34 ALT 22 U/L BILIRUBIN, TOTAL 0.5 mg/dL 0.2-1.2 May 03, 2024 01:53 PM [facility] BASIC METABOLIC PANEL (fasting) Specime n Type: SERUM No comment entered. Ordering Provider: MARIIA ABBOTT Report Released Date/Time: Oct 30, 2023 05:07 PM Reporting Lab: [address] [address] Performing Lab: [address] [address] UREA NITROGEN 46 mg/dL H 7-25 GLUCOSE 294 mg/dL H 65-100 SODIUM 137 mmol/L 135-145 POTASSIUM 4.4 mmol/L 3.5-5.0 CHLORIDE 105 mmol/L 100-110 CO2 21 meq/L 20-30 CREATININE, Serum 1.05 mg/dL 0.50-1.40 eGFR(CKD-EPI 2020) 73 mL/min >60 May 03, 2024 01:53 PM [facility] TSH Specimen Type: SERUM No comment entered. Ordering Provider: MARIIA ABBOTT Report Released Date/Time: Oct 30, 2023 05:07 PM Reporting Lab: [address] [address] Performing Lab: [address] [address] TSH 1.73 u[IU]/mL 0.35-5.00 May 03, 2024 01:53 PM [facility] VITAMIN D (25-OH) Specimen Type: SERUM No comment entered. Ordering Provider: MARIIA ABBOTT Report Released Date/Time: Oct 30, 2023 05:07 PM Reporting Lab: [address] [address] Performing Lab: [address] [address] VITAMIN D (25-OH) 24 ng/mL 20-50 May 03, 2024 01:53 PM [facility] MICROALBUMIN CREATININE RATIO PANEL Spe cimen Type: URINE No comment entered. Ordering Provider: MARIIA ABBOTT Report Released Date/Time: Oct 30, 2023 05:07 PM Reporting Lab: [address] [address] Performing Lab: [address] [address] MICROALBUMIN/C REATININE RATIO 128.4 mg/g H 0-29.9 MICROALBUMIN,Q UANTITATIVE 5.4 mg/dL RR UNAVAIL CREATININE URINE 42.05 mg/dL May 03, 2024 01:53 PM [facility] CALCIUM Specimen Type: SERUM No comment entered. Ordering Provider: MARIIA ABBOTT Report Released Date/Time: Oct 30, 2023 05:07 PM Reporting Lab: [address] [address] Performing Lab: [address] [address] CALCIUM 9.7 mg/dL 8.5-10.2 May 03, 2024 01:53 PM [facility] CBC AND DIFF (AUTO) Specimen Type: BLOOD No comment entered. Ordering Provider: MARIIA ABBOTT Report Released Date/Time: Oct 30, 2023 05:07 PM Reporting Lab: [facility] [address] [address] Performing Lab: [facility] [address] [address] WBC 6.25 10*3/uL 4.50-11.00 RBC 5.12 10*6/uL [...] and tobacco- related health factors from the [place] facility where the Encounter took place. Current Smoking Status This section includes the most current smoking, or tobacco-related health factor, from the [place] facility where the Encounter took place. Date/Time Current Smoking Status Comment Nadine jose May 03, 2024 10:00 AM VA-TOBACCO NEVER USED [facility] Tobacco Use History This section includes a history of the smoking, or tobacco-related health factors, that were collected on or before the date of the Encounter. The data comes from the [place] facility where the Encounter took place. Date/Time Smoking Status/Tobacco Use Comment F acmorgan Dec 12, 2022 03:10 PM VA-TOBACCO NEVER USED [facility] Encounter Notes: All associated encounter notes This section contains the clinical notes associated to the Encounter. Date/Time Encounter Note(s) Provider Source May 03, 2024 03:02 PM ADDENDUM: LOCAL TITLE: Addendum STANDARD TITLE: ADDENDUM DATE OF NOTE: MAY 03, 2024@15:02:42 ENTRY DATE: MAY 03, 2024@15:02:43 AUTHOR: SONNY CHASE EXP COSIGNER: URGENCY: STATUS: COMPLETED 's previous prescriber Olga Sheriff, SUPPLIER SPECIALIST has retired and is in need of a new prescriber assignment. Spent Grain Dryer entered a new psychiatric medication management referral on [place]'s behalf. was last seen by providerSharita on 10/23/2023 the plan at that time was: PLAN - Continue lorazepam 0.5mg. Take one tablet daily as needed #10 tablets. CC Individual therapy submitted. RTC - 5months with new prescriber . Lorazepam 0.5mg order on 04/24/2024 - last fill 04/21/2024 #10 tablets/10day supply. /es/ SONNY CHASE, MSN, RN, CNL MENTAL HEALTH NURSE ANDROID ARCHITECT Signed: 05/03/2024 15:05 Receipt Acknowledged By: 05/08/2024 13:59 /es/ Matthew Cordoba Psy.D. CABLE INSPECTOR, CLINICAL PSYCHOLOGIST --- Original Document --- 05/03/24 HT PERIODIC EVALUATION NOTE: HOME TELEHEALTH (HT) PERIODIC EVALUATION NOTE was identified by full name and date of . Provider: This information is sent for your review and any further recommendations in regards to the HT Plan of Care. 01/26/2021 Ht Enrollment-Start Date 01/26/2021 Ht Clinical Reason For Enrollment HTN, DM 'S CURRENT HT CATEGORY OF CARE: Non-Institutional Care-Low Responder Home Monitoring technology assigned: In Home Messaging Device (IHMD) Vendor: [employer] Connection via: Cellular [employer] Peripheral Device(s): Blood pressure Monitor with pulse Entry: Bluetooth Digital Scale Entry: Bluetooth SUMMARY SINCE LAST REVIEW: continues to be participant in HT program for hypertension. Average Response Rate February 2024-April 2024: 55.4% Current 30 day Response Rate: 43% reports he does his best to follow up with his providers as recommended. He recently had surgical prostate procedure by community urologist Dr. Lew, whom he followed up with a couple of days ago, next follow up is in a couple of months. Maryellen has been strongly encouraged and recommended to follow up with [facility] but has not scheduled appointments yet. Maryellen has a complex medical history and continues to benefit from the education and skilled oversight provided by the HT program to prevent hospitalization and institutionalization. [place] denies any falls during the past six months. HEALTH STATUS and REVIEW OF SYSTEMS: Active problems - Computerized Problem List is the source for the followin. Bradycardia 2. Benign Prostatic Hypertrophy with Outflow Obstruction (SCT 850821817) 3. Erectile Dysfunction ([facility] [id number]) 4. Depression ([facility] [id number]) 5. Actinic keratosis 6. Basal cell carcinoma of skin 7. Vitamin D Deficiency (SCT 96725309) 8. Contact dermatitis 9. Space-occupying lesion of brain 10. Second degree atrioventricular block 11. Cancer screening follow up 12. Hyperglycemia due to type 2 diabetes mellitus 13. PVD-peripheral vascular disease 14. Hyperlipidemia 15. Elevated PSA 16. Epistaxis * 17. Sleep apnea (SNOMED CT 83462315) 18. Superficial basal cell carcinoma 19. Gastroesophageal reflux disease (SNOMED CT 186331945) 20. Anxiety 21. Diabetes mellitus (SNOMED CT 70314480) 22. Essential hypertension (SNOMED CT 13086145) 23. Body mass index 25-29 - overweight 24. Recurrent major depression in partial remission REVIEW OF SYSTEMS Constitutional: Denies: Fever, Chills, Sweats, Malaise, Weight change Ears, nose, mouth, throat: Denies: Hearing change, Ear pain, Tinnitus, Sinus pain, Sinus congestion, Sinus drainage, Throat pain, Difficulty swallowing, Tooth pain Reports: Post nasal drip Comments: Denies bleeding of gums or oral sores. Has one missing tooth which he reports he had impression done by community dental to have tooth replaced in the near future. Eyes: Denies: Vision loss, Diplopia, Discharge, Eye pain, Reports: Floaters Comments: Hx of bilateral cataract removal surgery Respiratory: Denies: Shortness of breath, Wheezing, Dry cough, Productive cough Cardiovascular: Denies: Chest pain/pressure, Orthopnea, Palpitations, Racing heart, Lower extremity swelling, Sudden weight gain, Diaphoresis Comment: currently denies chest pain but reports occasional sharp chest pain that quickly comes and goes. Denies radiating pain/discomfort. Gastrointestinal: Denies: Abdominal pain, Flank pain, Nausea, Vomiting, Change in bowel habits, Loose stool, Hematochezia, Melena Genitourinary: Denies:, Hematuria, Frequency , Nocturia, Hesitancy Reports: Dysuria (S/P prostate surgery by community urologist Dr. Lew) Musculoskeletal: Denies: Neck pain/stiffness, Back pain, Joint pain/swelling, Calf pain, Muscle aches Comments: denies any falls during the past six months. 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 Comments: Denies any thoughts of harm to self or others at this time. Skin: Denies: Rash, Skin lesions, Jaundice, Ecchymosis, Discharge, Ulcerations, Hair/nail changes Endocrine: Denies: Polydipsia, Polyuria, Polyphasia, Frequent infections, Slow healing wounds Hematologic: Denies: Easy bruising, Prolonged bleeding Is the on Oxygen? No [place] reports he uses Bipap nightly. [place] reports he does not smoke, vape or use tobacco products. reports he does not drink alcohol or use other substances. PROGRESS TOWARDS GOAL(S): GILL DELUNA (-0091) Vital Sign for: 11/06/2023 - 05/03/2024 (All times are EST; All weights are lbs) Primary DMP: VHA-HTN Comorbid(s): Summary Weight Sys BP Barnett BP HR Pain High 176.6 195 113 108 Low 164.4 92 49 37 Average 168.8 138 73 74 Source: [employer]; [employer] [facility] [place]'s blood pressure and heart continues to be labile. He reports occasional sharp chest pain/discomfort that quickly comes and goes, non-radiating. He has been strongly encouraged and recommended to follow up with community jacker feeder as soon as possible. [place] stated he wanted to take care of urology/prostate procedure first and then will follow up with cardiology; he verbalized understanding of cardiac risks related to hypertension. reports he does his best with low sodium, diabetic diet. He reports he reads labels for sodium content, eating more fresh protein (chicken, meats, etc.). reports he drinks decaf coffee. [place] reports he is taking all medications as prescribed. 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 [place] reports he does his best to exercise by walking when he can. UPDATE OF GOALS AND CARE COORDINATION INTERVENTION PLAN (all goals are for the next 180 days): will assess blood pressure and weight daily and as needed as ordered by provider and transmit data to Home Telehealth daily. will improve self management skills of Hypertension by completing the DMP sessions daily. [place]'s blood pressure will be less than 130/80. will monitor for signs/symptoms of Hypertension and notify provider or call as appropriate. will take all medications as ordered by provider. [place] will maintain low sodium diet and avoid caffeine. [place] will exercise as tolerated to increase exercise to 30 minutes a day. [place] will call Reel Film Inspector or provider with any medical questions or concerns. Active prescriptions : Active Outpatient Medications (including Supplies): Active Outpatient Medications Status 1) ACCU-CHEK GUIDE (GLUCOSE) TEST STRIP USE 1 STRIP TO ACTIVE TEST BLOOD SUGARS FOUR TIMES A DAY 2) BETHANECHOL CHLORIDE 25MG TAB TAKE TWO TABLETS BY ACTIVE MOUTH TWICE DAILY FOR URINARY RETENTION 3) CHLORTHALIDONE 25MG TAB TAKE ONE TABLET BY MOUTH ONCE ACTIVE DAILY TO REMOVE FLUID/CONTROL BLOOD PRESSURE 4) CLONIDINE HCL 0.1MG TAB TAKE ONE TABLET BY MOUTH ACTIVE EVERY 12 HOURS TO CONTROL BLOOD PRESSURE 5) DEXTROSE 24GM/31GM SQUEEZE TUBE 1 TUBE BY MOUTH ACTIVE NEEDED FOR LOW BLOOD SUGAR 6) FINASTERIDE 5MG TAB TAKE ONE TABLET BY MOUTH ONCE ACTIVE DAILY 7) GLUCOSE SENSOR DEXCOM G7 USE 1 SENSOR DIRECTED ACTIVE EVERY 10 DAYS 8) INSULIN,ASPART(EQV-NOVLG)10 0UN/ML FLXPEN INJECT ACTIVE DIRECTED SUBCUTANEOUSLY THREE TIMES A DAY ACCORDING TO ICR OF 1 UNIT FOR EACH 9 GRAMS OF CARBS BEFORE BREAKFAST AND LUNCH AND 1 UNIT FOR EACH 10 GRAMS OF CARBS BEFORE DINNER MEAL 9) INSULIN,GLARGINE-YFGN 100UNIT/ML PEN 3ML INJECT 11 ACTIVE UNITS SUBCUTANEOUSLY ONCE DAILY FOR DIABETES 10) LANCET,SOFTCLIX USE 1 LANCET DIRECTED FOUR TIMES A ACTIVE DAY TO TEST BLOOD SUGAR 11) NEEDLE,PEN 31G,5MM USE 1 NEEDLE SUBCUTANEOUSLY FOUR ACTIVE TIMES A DAY FOR USE WITH PEN DEVICE 12) SEMAGLUTIDE 2MG/0.75ML INJ PEN 3ML INJECT 2MG ACTIVE SUBCUTANEOUSLY ONCE A WEEK FOR TYPE 2 DIABETES MELLITUS 13) SILDENAFIL CITRATE 100MG TAB TAKE ONE TABLET BY MOUTH ACTIVE ONCE DAILY NEEDED TAKE 1 HOUR PRIOR TO SEXUAL ACTIVITY 14) VALSARTAN 320MG TAB TAKE ONE TABLET BY MOUTH ONCE ACTIVE (S) DAILY Active Non-VA Medications Status 1) Non-VA FLUTICASONE NASAL SOLN,NASAL INTO EACH ACTIVE NOSTRIL 15 Total Medications The [place] gets prescriptions from outside providers. Prescriptions are processed only at the [facility] pharmacy. Is the [place] taking other medications including over the counter medications? Yes These medications are listed in the Non-VA medications list in CPRS. /caregiver has a current list of active medications. The and/or caregiver does not have questions about medications. MEDICATION INTERVENTIONS: Reviewed current list of medications, educated as needed Discrepancies sent to provider for reconciliation HEALTH EDUCATION Education provided: In-home monitoring Level of Understanding: Good Patient rights & responsibilities Safety/falls Level of Understanding: Good Self-care activities Preventive Health: Hypertension: Exercise Level of Understanding: Good Medication adherence Level of Understanding: Good Nutrition/diet Level of Understanding: Good Response to instruction: [place] verbalizes understanding (states essential concepts) Plan/Education follow-up: No follow-up indicated/planned at this time EMERGENCY MANAGEMENT (DUE TO ENVIRONMENTALLY-RELATED OR TECHNOLOGY -RELATED EMERGENCIES) - PATIENT CLASSSIFICATION/PRIORITY LEVEL: Level 3 (Low Priority) - Can go 7-14 days without HT intervention A. Veterans that have physical, emotional and local resources and are able to access them. C. Veterans who have friends and/or family able to assist with accessing resources. Disaster Plan discussed with /Caregiver [place] denies any questions or concerns about disaster planning or emergency preparedness at this time. If you are having an emotional crisis or are thinking of harming yourself or others, please call the Veterans Crisis Line 24 hours a day, 7 days a week by dialing 4-6-5 on your phone and press one for Veterans OR you may call [phone] ([phone]) and press one for Veterans. TYPE OF ENCOUNTER: Telephone Length of call: 21-30 minutes This meets SIMRAN criteria but is being placed in the NICLR (SIMRAN Low Responder) Category of Care due to not meeting participation requirements but is still benefitting from HT enrollment. WHOLE HEALTH COACHING SKILLS Coaching or Motivational Interviewing skills used. Tobacco Use Screening: The patient has never used tobacco. Sexual Orientation: The patient thinks of their sexual orientation as: Straight or Heterosexual /KAVITHA Cormier, RN [facility]-Home Telehealth Reel Film Inspector Signed: 05/03/2024 13:25 Receipt Acknowledged By: 05/04/2024 00:15 /simone/ MARIIA BROUSSARD MD PHYSICIAN 05/03/2024 ADDENDUM STATUS: COMPLETED Dr. Broussard, Maryellen reports he followed up with community urologist Dr. Lew this week. He reports he is doing well, next follow up is in a couple of months. reports finasteride has been discontinue. He continues to bethanechol as prescribed. Maryellen is aware fasting labs are ordered for 05/30/2024. He is requesting PSA to be added as community urology had mentioned this to him as well. Lorazepam prescription has . He is requesting renewal. Previous mental health prescriber/provider no longer assigned to Maryellen. Maryellen is requesting new Mental Health consult for new provider please. Maryellen has been strongly encouraged/recommended to follow up with community jacker feeder given labile blood pressure and heart rate. He states he will call to schedule appointment. It appears his community cardiology consult will need renewal soon, please review. Thank you! /KAVITHA Cormier, RN [facility]-Home Telehealth Reel Film Inspector Signed: 05/03/2024 13:32 Receipt Acknowledged By: 05/03/2024 15:06 /simone/ SONNY CHASE, CHARIS, RN, CNL MENTAL HEALTH NURSE ANDROID ARCHITECT 05/04/2024 00:55 /simone/ MARIIA BROUSSARD MD PHYSICIAN * AWAITING SIGNATURE * ZAID ODONNELL 05/03/2024 ADDENDUM STATUS: COMPLETED UT Grounds Person: Dr. Criselda Soriano UT Program Professional: Dr. Jose R Arias UT Clinical Pharmacist: Keesha Trujillo UT Spinner Open End: Eryn Blancas, DNP, TOWER LOADER OPERATOR-C UT Biofeedback: Dr. Porfirio Morales UT Respiratory Therapy Community Urologist: Dr. Mayank Lew [facility] [address] [place] [address] Community Housing Relocation: Dr. Kasey Grullon [facility] [address] [place], [place] F: [phone] Community Mental Health Counselor: Stu Mcdonald [address] [place] [address] Phone/ (call this number) /simone/ KAVITHA Albert, RN [facility]-Home Telehealth Reel Film Inspector Signed: 05/03/2024 13:43 SONNY CHASE [facility] [place] [facility] May 03, 2024 01:26 PM ADDENDUM: LOCAL TITLE: Addendum STANDARD TITLE: ADDENDUM DATE OF NOTE: MAY 03, 2024@13:26:12 ENTRY DATE: MAY 03, 2024@13:26:13 AUTHOR: ALCIRA LAYNE COSIGNER: URGENCY: STATUS: COMPLETED Dr. Broussard, Maryellen reports he followed up with community urologist Dr. Lew this week. He reports he is doing well, next follow up is in a couple of months. [place] reports finasteride has been discontinue. He continues to bethanechol as prescribed. [place] is aware fasting labs are ordered for 05/30/2024. He is requesting PSA to be added as community urology had mentioned this to him as well. Lorazepam prescription has . He is requesting renewal. Previous mental health prescriber/provider no longer assigned to . [place] is requesting new Mental Health consult for new provider please. [place] has been strongly encouraged/recommended to follow up with community jacker feeder given labile blood pressure and heart rate. He states he will call to schedule appointment. It appears his community cardiology consult will need renewal soon, please review. Thank you! /es/ KAVITHA Albert, RN RPM-Home Telehealth Reel Film Inspector Signed: 05/03/2024 13:32 Receipt Acknowledged By: 05/03/2024 15:06 /es/ CHARIS MAHAN, RN, CNL MENTAL HEALTH NURSE ANDROID ARCHITECT 05/04/2024 00:55 /es/ MARIIA BROUSSARD MD PHYSICIAN 05/09/2024 11:57 /es/ ZAID ODONNELL RN REGISTERED NURSE --- Original Document --- 05/03/24 HT PERIODIC EVALUATION NOTE: HOME TELEHEALTH (HT) PERIODIC EVALUATION NOTE Maryellen was identified by full name and date of . Provider: This information is sent for your review and any further recommendations in regards to the HT Plan of Care. 01/26/2021 Ht Enrollment-Start Date 01/26/2021 Ht Clinical Reason For Enrollment HTN, DM 'S CURRENT HT CATEGORY OF CARE: Non-Institutional Care-Low Responder Home Monitoring technology assigned: In Home Messaging Device (IHMD) Vendor: [employer] Connection via: [employer] Peripheral Device(s): Blood pressure Monitor with pulse Entry: Bluetooth Digital Scale Entry: Bluetooth SUMMARY SINCE LAST REVIEW: Maryellen continues to be participant in HT program for hypertension. Average Response Rate February 2024-April 2024: 55.4% Current 30 day Response Rate: 43% Maryellen reports he does his best to follow up with his providers as recommended. He recently had surgical prostate procedure by community urologist Dr. Lew, whom he followed up with a couple of days ago, next follow up is in a couple of months. Maryellen has been strongly encouraged and recommended to follow up with [facility] but has not scheduled appointments yet. Maryellen has a complex medical history and continues to benefit from the education and skilled oversight provided by the HT program to prevent hospitalization and institutionalization. denies any falls during the past six months. HEALTH STATUS and REVIEW OF SYSTEMS: Active problems - Computerized Problem List is the source for the followin. Bradycardia 2. Benign Prostatic Hypertrophy with Outflow Obstruction ([facility] [id number]) 3. Erectile Dysfunction ([facility] [id number]) 4. Depression ([facility] [id number]) 5. Actinic keratosis 6. Basal cell carcinoma of skin 7. Vitamin D Deficiency ([facility] [id number]) 8. Contact dermatitis 9. Space-occupying lesion of brain 10. Second degree atrioventricular block 11. Cancer screening follow up 12. Hyperglycemia due to type 2 diabetes mellitus 13. PVD-peripheral vascular disease 14. Hyperlipidemia 15. Elevated PSA 16. Epistaxis * 17. Sleep apnea (SNOMED CT 85822988) 18. Superficial basal cell carcinoma 19. Gastroesophageal reflux disease (SNOMED CT 862080215) 20. Anxiety 21. Diabetes mellitus (SNOMED CT 90689159) 22. Essential hypertension (SNOMED CT 55282580) 23. Body mass index 25-29 - overweight 24. Recurrent major depression in partial remission REVIEW OF SYSTEMS Constitutional: Denies: Fever, Chills, Sweats, Malaise, Weight change Ears, nose, mouth, throat: Denies: Hearing change, Ear pain, Tinnitus, Sinus pain, Sinus congestion, Sinus drainage, Throat pain, Difficulty swallowing, Tooth pain Reports: Post nasal drip Comments: Denies bleeding of gums or oral sores. Has one missing tooth which he reports he had impression done by [facility] to have tooth replaced in the near future. Eyes: Denies: Vision loss, Diplopia, Discharge, Eye pain, Reports: Floaters Comments: Hx of bilateral cataract removal surgery Respiratory: Denies: Shortness of breath, Wheezing, Dry cough, Productive cough Cardiovascular: Denies: Chest pain/pressure, Orthopnea, Palpitations, Racing heart, Lower extremity swelling, Sudden weight gain, Diaphoresis Comment: [place] currently denies chest pain but reports occasional sharp chest pain that quickly comes and goes. Denies radiating pain/discomfort. Gastrointestinal: Denies: Abdominal pain, Flank pain, Nausea, Vomiting, Change in bowel habits, Loose stool, Hematochezia, Melena Genitourinary: Denies:, Hematuria, Frequency , Nocturia, Hesitancy Reports: Dysuria (S/P prostate surgery by community urologist Dr. Lew) Musculoskeletal: Denies: Neck pain/stiffness, Back pain, Joint pain/swelling, Calf pain, Muscle aches Comments: denies any falls during the past six months. 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 Comments: Denies any thoughts of harm to self or others at this time. Skin: Denies: Rash, Skin lesions, Jaundice, Ecchymosis, Discharge, Ulcerations, Hair/nail changes Endocrine: Denies: Polydipsia, Polyuria, Polyphasia, Frequent infections, Slow healing wounds Hematologic: Denies: Easy bruising, Prolonged bleeding Is the [place] on Oxygen? No [place] reports he uses Bipap nightly. reports he does not smoke, vape or use tobacco products. [place] reports he does not drink alcohol or use other substances. PROGRESS TOWARDS GOAL(S): GILL DELUNA (-2841) Vital Sign for: 11/06/2023 - 05/03/2024 (All times are EST; All weights are lbs) Primary DMP: VHA-HTN Comorbid(s): Summary Weight Sys BP Barnett BP HR Pain High 176.6 195 113 108 Low 164.4 92 49 37 Average 168.8 138 73 74 Source: [employer]; [employer] 's blood pressure and heart continues to be labile. He reports occasional sharp chest pain/discomfort that quickly comes and goes, non-radiating. He has been strongly encouraged and recommended to follow up with community jacker feeder as soon as possible. [place] stated he wanted to take care of urology/prostate procedure first and then will follow up with cardiology; he verbalized understanding of cardiac risks related to hypertension. [place] reports he does his best with low sodium, diabetic diet. He reports he reads labels for sodium content, eating more fresh protein (chicken, meats, etc.). reports he drinks decaf coffee. [place] reports he is taking all medications as prescribed. 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 reports he does his best to exercise by walking when he can. UPDATE OF GOALS AND CARE COORDINATION INTERVENTION PLAN (all goals are for the next 180 days): [place] will assess blood pressure and weight daily and as needed as ordered by provider and transmit data to Home Telehealth daily. [place] will improve self management skills of Hypertension by completing the DMP sessions daily. [place]'s blood pressure will be less than 130/80. will monitor for signs/symptoms of Hypertension and notify provider or call as appropriate. [place] will take all medications as ordered by provider. will maintain low sodium diet and avoid caffeine. [place] will exercise as tolerated to increase exercise to 30 minutes a day. [place] will call Reel Film Inspector or provider with any medical questions or concerns. Active prescriptions : Active Outpatient Medications (including Supplies): Active Outpatient Medications Status 1) ACCU-CHEK GUIDE (GLUCOSE) TEST STRIP USE 1 STRIP TO ACTIVE TEST BLOOD SUGARS FOUR TIMES A DAY 2) BETHANECHOL CHLORIDE 25MG TAB TAKE TWO TABLETS BY ACTIVE MOUTH TWICE DAILY FOR URINARY RETENTION 3) CHLORTHALIDONE 25MG TAB TAKE ONE TABLET BY MOUTH ONCE ACTIVE DAILY TO REMOVE FLUID/CONTROL BLOOD PRESSURE 4) CLONIDINE HCL 0.1MG TAB TAKE ONE TABLET BY MOUTH ACTIVE EVERY 12 HOURS TO CONTROL BLOOD PRESSURE 5) DEXTROSE 24GM/31GM SQUEEZE TUBE 1 TUBE BY MOUTH ACTIVE NEEDED FOR LOW BLOOD SUGAR 6) FINASTERIDE 5MG TAB TAKE ONE TABLET BY MOUTH ONCE ACTIVE DAILY 7) GLUCOSE SENSOR DEXCOM G7 USE 1 SENSOR DIRECTED ACTIVE EVERY 10 DAYS 8) INSULIN,ASPART(EQV-NOVLG)10 0UN/ML FLXPEN INJECT ACTIVE DIRECTED SUBCUTANEOUSLY THREE TIMES A DAY ACCORDING TO ICR OF 1 UNIT FOR EACH 9 GRAMS OF CARBS BEFORE BREAKFAST AND LUNCH AND 1 UNIT FOR EACH 10 GRAMS OF CARBS BEFORE DINNER MEAL 9) INSULIN,GLARGINE-YFGN 100UNIT/ML PEN 3ML INJECT 11 ACTIVE UNITS SUBCUTANEOUSLY ONCE DAILY FOR DIABETES 10) LANCET,SOFTCLIX USE 1 LANCET DIRECTED FOUR TIMES A ACTIVE DAY TO TEST BLOOD SUGAR 11) NEEDLE,PEN 31G,5MM USE 1 NEEDLE SUBCUTANEOUSLY FOUR ACTIVE TIMES A DAY FOR USE WITH PEN DEVICE 12) SEMAGLUTIDE 2MG/0.75ML INJ PEN 3ML INJECT 2MG ACTIVE SUBCUTANEOUSLY ONCE A WEEK FOR TYPE 2 DIABETES MELLITUS 13) SILDENAFIL CITRATE 100MG TAB TAKE ONE TABLET BY MOUTH ACTIVE ONCE DAILY NEEDED TAKE 1 HOUR PRIOR TO SEXUAL ACTIVITY 14) VALSARTAN 320MG TAB TAKE ONE TABLET BY MOUTH ONCE ACTIVE (S) DAILY Active Non-VA Medications Status 1) Non-VA FLUTICASONE NASAL SOLN,NASAL INTO EACH ACTIVE NOSTRIL 15 Total Medications The [place] gets prescriptions from outside providers. Prescriptions are processed only at the [facility] pharmacy. Is the taking other medications including over the counter medications? Yes These medications are listed in the Non-VA medications list in CPRS. /caregiver has a current list of active medications. The [place] and/or caregiver does not have questions about medications. MEDICATION INTERVENTIONS: Reviewed current list of medications, educated as needed Discrepancies sent to provider for reconciliation HEALTH EDUCATION Education provided: In-home monitoring Level of Understanding: Good Patient rights & responsibilities Safety/falls Level of Understanding: Good Self-care activities Preventive Health: Hypertension: Exercise Level of Understanding: Good Medication adherence Level of Understanding: Good Nutrition/diet Level of Understanding: Good Response to instruction: [place] verbalizes understanding (states essential concepts) Plan/Education follow-up: No follow-up indicated/planned at this time EMERGENCY MANAGEMENT (DUE TO ENVIRONMENTALLY-RELATED OR TECHNOLOGY -RELATED EMERGENCIES) - PATIENT CLASSSIFICATION/PRIORITY LEVEL: Level 3 (Low Priority) - Can go 7-14 days without HT intervention A. Veterans that have physical, emotional and local resources and are able to access them. C. Veterans who have friends and/or family able to assist with accessing resources. Disaster Plan discussed with /Caregiver denies any questions or concerns about disaster planning or emergency preparedness at this time. If you are having an emotional crisis or are thinking of harming yourself or others, please call the [facility] Crisis Line 24 hours a day, 7 days a week by dialing 6-3-4 on your phone and press one for Veterans OR you may call [phone] ([phone]) and press one for Veterans. TYPE OF ENCOUNTER: Telephone Length of call: 21-30 minutes This meets SIMRAN criteria but is being placed in the NICLR (SIMRAN Low Responder) Category of Care due to not meeting participation requirements but is still benefitting from HT enrollment. WHOLE HEALTH COACHING SKILLS Coaching or Motivational Interviewing skills used. Tobacco Use Screening: The patient has never used tobacco. Sexual Orientation: The patient thinks of their sexual orientation as: Straight or Heterosexual /es/ KAVITHA Albert, RN [facility]-Home Telehealth Reel Film Inspector Signed: 05/03/2024 13:25 Receipt Acknowledged By: 05/04/2024 00:15 /es/ MARIIA BROUSSARD MD PHYSICIAN 05/03/2024 ADDENDUM STATUS: COMPLETED [facility] Grounds Person: Dr. Criselda Soriano [facility] Program Professional: Dr. Jose R Arias [facility] Clinical Pharmacist: Keesha Trujillo [facility] Spinner Open End: Eryn Blancas DNP, TOWER LOADER OPERATOR-C [facility] Biofeedback: Dr. Porfirio Morales [facility] Respiratory Therapy Community Urologist: Dr. Talley [facility] [address] [place] [address] [facility] Housing Relocation: Dr. Kasey Grullon [facility] [address], [place] F: [phone] [facility] Mental Health Counselor: Stu Mcdonald [address] [place] [address] Phone/ (call this number) /KAVITHA Cormier, RN [facility]-Home Telehealth Reel Film Inspector Signed: 05/03/2024 13:43 05/03/2024 ADDENDUM STATUS: COMPLETED [place]'s previous prescriber Olga Sheriff, DAVID has retired and is in need of a new prescriber assignment. Spent Grain Dryer entered a new psychiatric medication management referral on [place]'s behalf. [place] was last seen by providerSharita on 10/23/2023 the plan at that time was: PLAN - Continue lorazepam 0.5mg. Take one tablet daily as needed #10 tablets. CC Individual therapy submitted. RTC - 5months with new prescriber . Lorazepam 0.5mg order on 04/24/2024 - last fill 04/21/2024 #10 tablets/10day supply. /es/ SONNY CHASE, CHARIS, RN, CNL MENTAL HEALTH NURSE ANDROID ARCHITECT Signed: 05/03/2024 15:05 Receipt Acknowledged By: 05/08/2024 13:59 /es/ Matthew Cordoba Psy.D. CABLE INSPECTOR, CLINICAL PSYCHOLOGIST [facility] [place] [facility] May 03, 2024 10:30 AM CARE COORDINATION HOME TELEHEALTH REPORT: LOCAL TITLE: HT PERIODIC EVALUATION NOTE STANDARD TITLE: CARE COORDINATION HOME TELEHEALTH REPORT DATE OF NOTE: MAY 03, 2024@10:30 ENTRY DATE: MAY 03, 2024@13:06:03 AUTHOR: ALCIRA LAYNE EXP COSIGNER: URGENCY: STATUS: COMPLETED HT PERIODIC EVALUATION NOTE Has ADDENDA HOME TELEHEALTH (HT) PERIODIC EVALUATION NOTE [place] was identified by full name and date of . Provider: This information is sent for your review and any further recommendations in regards to the HT Plan of Care. 01/26/2021 Ht Enrollment-Start Date 01/26/2021 Ht Clinical Reason For Enrollment HTN, DM 'S CURRENT HT CATEGORY OF CARE: Non-Institutional Care-Low Responder Home Monitoring technology assigned: In Home Messaging Device (IHMD) Vendor: [employer] Connection via: [employer] Peripheral Device(s): Blood pressure Monitor with pulse Entry: Bluetooth Digital Scale Entry: Bluetooth SUMMARY SINCE LAST REVIEW: Maryellen continues to be participant in HT program for hypertension. Average Response Rate February 2024-April 2024: 55.4% Current 30 day Response Rate: 43% [place] reports he does his best to follow up with his providers as recommended. He recently had surgical prostate procedure by community urologist Dr. Lew, whom he followed up with a couple of days ago, next follow up is in a couple of months. has been strongly encouraged and recommended to follow up with [facility] but has not scheduled appointments yet. [place] has a complex medical history and continues to benefit from the education and skilled oversight provided by the HT program to prevent hospitalization and institutionalization. denies any falls during the past six months. HEALTH STATUS and REVIEW OF SYSTEMS: Active problems - Computerized Problem List is the source for the followin. Bradycardia 2. Benign Prostatic Hypertrophy with Outflow Obstruction ([facility] [id number]) 3. Erectile Dysfunction ([facility] [id number]) 4. Depression ([facility] [id number]) 5. Actinic keratosis 6. Basal cell carcinoma of skin 7. Vitamin D Deficiency ([facility] [id number]) 8. Contact dermatitis 9. Space-occupying lesion of brain 10. Second degree atrioventricular block 11. Cancer screening follow up 12. Hyperglycemia due to type 2 diabetes mellitus 13. PVD-peripheral vascular disease 14. Hyperlipidemia 15. Elevated PSA 16. Epistaxis * 17. Sleep apnea (SNOMED CT 70117163) 18. Superficial basal cell carcinoma 19. Gastroesophageal reflux disease (SNOMED CT 206205447) 20. Anxiety 21. Diabetes mellitus (SNOMED CT 82736571) 22. Essential hypertension (SNOMED CT 87952555) 23. Body mass index 25-29 - overweight 24. Recurrent major depression in partial remission REVIEW OF SYSTEMS Constitutional: Denies: Fever, Chills, Sweats, Malaise, Weight change Ears, nose, mouth, throat: Denies: Hearing change, Ear pain, Tinnitus, Sinus pain, Sinus congestion, Sinus drainage, Throat pain, Difficulty swallowing, Tooth pain Reports: Post nasal drip Comments: Denies bleeding of gums or oral sores. Has one missing tooth which he reports he had impression done by [facility] to have tooth replaced in the near future. Eyes: Denies: Vision loss, Diplopia, Discharge, Eye pain, Reports: Floaters Comments: Hx of bilateral cataract removal surgery Respiratory: Denies: Shortness of breath, Wheezing, Dry cough, Productive cough Cardiovascular: Denies: Chest pain/pressure, Orthopnea, Palpitations, Racing heart, Lower extremity swelling, Sudden weight gain, Diaphoresis Comment: currently denies chest pain but reports occasional sharp chest pain that quickly comes and goes. Denies radiating pain/discomfort. Gastrointestinal: Denies: Abdominal pain, Flank pain, Nausea, Vomiting, Change in bowel habits, Loose stool, Hematochezia, Melena Genitourinary: Denies:, Hematuria, Frequency , Nocturia, Hesitancy Reports: Dysuria (S/P prostate surgery by community urologist Dr. Lew) Musculoskeletal: Denies: Neck pain/stiffness, Back pain, Joint pain/swelling, Calf pain, Muscle aches Comments: [place] denies any falls during the past six months. 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 Comments: Denies any thoughts of harm to self or others at this time. Skin: Denies: Rash, Skin lesions, Jaundice, Ecchymosis, Discharge, Ulcerations, Hair/nail changes Endocrine: Denies: Polydipsia, Polyuria, Polyphasia, Frequent infections, Slow healing wounds Hematologic: Denies: Easy bruising, Prolonged bleeding Is the on Oxygen? No reports he uses Bipap nightly. reports he does not smoke, vape or use tobacco products. [place] reports he does not drink alcohol or use other substances. PROGRESS TOWARDS GOAL(S): GILL DELUNA (-6647) Vital Sign for: 11/06/2023 - 05/03/2024 (All times are EST; All weights are lbs) Primary DMP: VHA-HTN Comorbid(s): Summary Weight Sys BP Barnett BP HR Pain High 176.6 195 113 108 Low 164.4 92 49 37 Average 168.8 138 73 74 Source: [employer]; [employer] [place]'s blood pressure and heart continues to be labile. He reports occasional sharp chest pain/discomfort that quickly comes and goes, non-radiating. He has been strongly encouraged and recommended to follow up with community jacker feeder as soon as possible. [place] stated he wanted to take care of urology/prostate procedure first and then will follow up with cardiology; he verbalized understanding of cardiac risks related to hypertension. [place] reports he does his best with low sodium, diabetic diet. He reports he reads labels for sodium content, eating more fresh protein (chicken, meats, etc.). [place] reports he drinks decaf coffee. reports he is taking all medications as prescribed. 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 [place] reports he does his best to exercise by walking when he can. UPDATE OF GOALS AND CARE COORDINATION INTERVENTION PLAN (all goals are for the next 180 days): will assess blood pressure and weight daily and as needed as ordered by provider and transmit data to Home Telehealth daily. will improve self management skills of Hypertension by completing the DMP sessions daily. 's blood pressure will be less than 130/80. will monitor for signs/symptoms of Hypertension and notify provider or call as appropriate. will take all medications as ordered by provider. [place] will maintain low sodium diet and avoid caffeine. [place] will exercise as tolerated to increase exercise to 30 minutes a day. [place] will call Reel Film Inspector or provider with any medical questions or concerns. Active prescriptions : Active Outpatient Medications (including Supplies): Active Outpatient Medications Status 1) ACCU-CHEK GUIDE (GLUCOSE) TEST STRIP USE 1 STRIP TO ACTIVE TEST BLOOD SUGARS FOUR TIMES A DAY 2) BETHANECHOL CHLORIDE 25MG TAB TAKE TWO TABLETS BY ACTIVE MOUTH TWICE DAILY FOR URINARY RETENTION 3) CHLORTHALIDONE 25MG TAB TAKE ONE TABLET BY MOUTH ONCE ACTIVE DAILY TO REMOVE FLUID/CONTROL BLOOD PRESSURE 4) CLONIDINE HCL 0.1MG TAB TAKE ONE TABLET BY MOUTH ACTIVE EVERY 12 HOURS TO CONTROL BLOOD PRESSURE 5) DEXTROSE 24GM/31GM SQUEEZE TUBE 1 TUBE BY MOUTH ACTIVE NEEDED FOR LOW BLOOD SUGAR 6) FINASTERIDE 5MG TAB TAKE ONE TABLET BY MOUTH ONCE ACTIVE DAILY 7) GLUCOSE SENSOR DEXCOM G7 USE 1 SENSOR DIRECTED ACTIVE EVERY 10 DAYS 8) INSULIN,ASPART(EQV-NOVLG)10 0UN/ML FLXPEN INJECT ACTIVE DIRECTED SUBCUTANEOUSLY THREE TIMES A DAY ACCORDING TO ICR OF 1 UNIT FOR EACH 9 GRAMS OF CARBS BEFORE BREAKFAST AND LUNCH AND 1 UNIT FOR EACH 10 GRAMS OF CARBS BEFORE DINNER MEAL 9) INSULIN,GLARGINE-YFGN 100UNIT/ML PEN 3ML INJECT 11 ACTIVE UNITS SUBCUTANEOUSLY ONCE DAILY FOR DIABETES 10) LANCET,SOFTCLIX USE 1 LANCET DIRECTED FOUR TIMES A ACTIVE DAY TO TEST BLOOD SUGAR 11) NEEDLE,PEN 31G,5MM USE 1 NEEDLE SUBCUTANEOUSLY FOUR ACTIVE TIMES A DAY FOR USE WITH PEN DEVICE 12) SEMAGLUTIDE 2MG/0.75ML INJ PEN 3ML INJECT 2MG ACTIVE SUBCUTANEOUSLY ONCE A WEEK FOR TYPE 2 DIABETES MELLITUS 13) SILDENAFIL CITRATE 100MG TAB TAKE ONE TABLET BY MOUTH ACTIVE ONCE DAILY NEEDED TAKE 1 HOUR PRIOR TO SEXUAL ACTIVITY 14) VALSARTAN 320MG TAB TAKE ONE TABLET BY MOUTH ONCE ACTIVE (S) DAILY Active Non-VA Medications Status 1) Non-VA FLUTICASONE NASAL SOLN,NASAL INTO EACH ACTIVE NOSTRIL 15 Total Medications The gets prescriptions from outside providers. Prescriptions are processed only at the [facility] pharmacy. Is the taking other medications including over the counter medications? Yes These medications are listed in the Non-VA medications list in CPRS. [place]/caregiver has a current list of active medications. The [place] and/or caregiver does not have questions about medications. MEDICATION INTERVENTIONS: Reviewed current list of medications, educated as needed Discrepancies sent to provider for reconciliation HEALTH EDUCATION Education provided: In-home monitoring Level of Understanding: Good Patient rights & responsibilities Safety/falls Level of Understanding: Good Self-care activities Preventive Health: Hypertension: Exercise Level of Understanding: Good Medication adherence Level of Understanding: Good Nutrition/diet Level of Understanding: Good Response to instruction: verbalizes understanding (states essential concepts) Plan/Education follow-up: No follow-up indicated/planned at this time EMERGENCY MANAGEMENT (DUE TO ENVIRONMENTALLY-RELATED OR TECHNOLOGY -RELATED EMERGENCIES) - PATIENT CLASSSIFICATION/PRIORITY LEVEL: Level 3 (Low Priority) - Can go 7-14 days without HT intervention A. Veterans that have physical, emotional and local resources and are able to access them. C. Veterans who have friends and/or family able to assist with accessing resources. Disaster Plan discussed with /Caregiver [place] denies any questions or concerns about disaster planning or emergency preparedness at this time. If you are having an emotional crisis or are thinking of harming yourself or others, please call the Veterans Crisis Line 24 hours a day, 7 days a week by dialing 2-8-5 on your phone and press one for Veterans OR you may call [phone] ([phone]) and press one for Veterans. TYPE OF ENCOUNTER: Telephone Length of call: 21-30 minutes This [place] meets SIMRAN criteria but is being placed in the NICLR (SIMRAN Low Responder) Category of Care due to not meeting participation requirements but is still benefitting from HT enrollment. WHOLE HEALTH COACHING SKILLS Coaching or Motivational Interviewing skills used. Tobacco Use Screening: The patient has never used tobacco. Sexual Orientation: The patient thinks of their sexual orientation as: Straight or Heterosexual /simone/ KAVITHA Albert, RN [facility]-Home Telehealth Reel Film Inspector Signed: 05/03/2024 13:25 Receipt Acknowledged By: 05/04/2024 00:15 /simone/ MARIIA BROUSSARD MD PHYSICIAN 05/03/2024 ADDENDUM STATUS: COMPLETED Dr. Broussard, reports he followed up with community urologist Dr. Lew this week. He reports he is doing well, next follow up is in a couple of months. [place] reports finasteride has been discontinue. He continues to bethanechol as prescribed. [place] is aware fasting labs are ordered for 05/30/2024. He is requesting PSA to be added as community urology had mentioned this to him as well. Lorazepam prescription has . He is requesting renewal. Previous mental health prescriber/provider no longer assigned to [place]. [place] is requesting new Mental Health consult for new provider please. has been strongly encouraged/recommended to follow up with community jacker feeder given labile blood pressure and heart rate. He states he will call to schedule appointment. It appears his community cardiology consult will need renewal soon, please review. Thank you! /KAVITHA Cormier, RN [facility]-Home Telehealth Reel Film Inspector Signed: 05/03/2024 13:32 Receipt Acknowledged By: 05/03/2024 15:06 /simone/ SONNY CHASE, MSN, RN, CNL MENTAL HEALTH NURSE ANDROID ARCHITECT * AWAITING SIGNATURE * MARIIA BROUSSARD * AWAITING SIGNATURE * ZAID ODONNELL 05/03/2024 ADDENDUM STATUS: COMPLETED UT Grounds Person: Dr. Criselda Soriano UT Program Professional: Dr. Jose R Arias UT Clinical Pharmacist: Keesha Trujillo UT Spinner Open End: Eryn Blancas, SEAN, TOWER LOADER OPERATOR-C UT Biofeedback: Dr. Porfirio Morales UT Respiratory Therapy Community Urologist: Dr. Mayank Lew [facility] [address] [place] [address] Community Housing Relocation: Dr. Kasey Grullon [facility] [address] [place], [place] F: [phone] Community Mental Health Counselor: Stu Mcdonald [address] [place] [address] Phone/ (call this number) /KAVITHA Cormier, RN RPM-Home Telehealth Reel Film Inspector Signed: 05/03/2024 13:43 05/03/2024 ADDENDUM STATUS: COMPLETED 's previous prescriber Olga Sheriff, DAVID has retired and [place] is in need of a new prescriber assignment. Spent Grain Dryer entered a new psychiatric medication management referral on 's behalf. was last seen by providerSharita on 10/23/2023 the plan at that time was: PLAN - Continue lorazepam 0.5mg. Take one tablet daily as needed #10 tablets. CC Individual therapy submitted. RTC - 5months with new prescriber . Lorazepam 0.5mg order on 04/24/2024 - last fill 04/21/2024 #10 tablets/10day supply. /simone/ SONNY CHASE, MSN, RN, CNL MENTAL HEALTH NURSE ANDROID ARCHITECT Signed: 05/03/2024 15:05 Receipt Acknowledged By: * AWAITING SIGNATURE * MATTHEW CORDOBA TAMMY [place] [facility] [place] [facility] May 03, 2024 10:00 AM CARE COORDINATION HOME TELEHEALTH E & M NOTE: LOCAL TITLE: CONTINUUM OF CARE NOTE STANDARD TITLE: CARE COORDINATION HOME TELEHEALTH E & M NOTE DATE OF NOTE: MAY 03, 2024@10:00 ENTRY DATE: MAY 03, 2024@12:50:29 AUTHOR: ALCIRA LAYNE EXP COSIGNER: URGENCY: STATUS: COMPLETED HOME TELEHEALTH CONTINUUM OF CARE - Follow-up assessment 'S LIVING SITUATION: lives alone. [place] lives in a private home or apartment. PRIMARY (UNPAID) CAREGIVER INFORMATION: The [place] has an unpaid caregiver. Caregiver does not live with the . Caregiver name: Madai Deluna Street address: [address] [place] [address] City: [place] State: [place] ZIP code: [id number] Telephone number: (with area code) Caregiver relationship: Ex-/Friend Caregiver provides advice/emotional support. Caregiver is accessible to the . They live close enough to see the and provide care regularly. Caregiver is willing/able to increase help. BASIC ACTIVITIES OF DAILY LIVING: In the last 7 days, has the required help or supervision with the following activities? Bathing (tub bath, shower, or sponge) - Yes [place] uses a sponge with stick to clean his back and hard to reach areas. Dressing (lower and upper body) - No Eating (taking food by any method, including tube feedings) - No Using the toilet (or urinal/bedpan, cleaning self) - No Moving around in bed (turning, to/from sitting, repositioning) - No Transfers (from bed, chair, wheelchair) - No Moving around indoors (even with cane, walker, or scooter) - No INSTRUMENTAL ACTIVITES OF DAILY LIVING: In the last 7 days, has the [place] expressed difficulty with the following activities? Preparing meals (planning, cooking, setting out food/utensils) - No [place]'s meals were not prepared by others. Performing housework - No Shopping (selecting items, managing money) - No Transportation (getting to places beyond walking distance by any mode) - No Using the telephone (receiving or making calls with or without assistive devices) - No Managing medications (remembering to take meds, opening bottles, taking correct dosages at correct times) - No Managing own finances (maintaining a checkbook, paying own routine bills) - No BEHAVIORS AND SYMPTOMS THAT HAVE BEEN PRESENT OR WOULD LIKELY MANIFEST IN THE ABSENCE OF CARE COORDINATION SERVICES: Wandering - No Verbally abusive behavior - No Physically abusive behavior - No Hallucinations - No Delusions - No Substance abuse or dependence - No Depression - Yes Dx: Depression Delores - No PTSD or other severe anxiety disorder - Yes Dx: Anxiety Resisting care - No COGNITIVE STATUS: In the last 7 days (or would likely manifest in the absence of continued HT services) did the have difficulty making decisions that are reasonable about organizing the day, such as when to get up, what meals to have or what clothes to wear? No In the last 7 days (or would likely manifest in the absence of continued HT services) has the been unable to make himself/herself understood? No In the last 90 days, has the become so agitated or disoriented that his/her safety was endangered or he/she required protection by others as a result? No PROGNOSIS: The [place] has NOT had a recent (2-3 month) change in his/her level of functioning. The [place] has not experienced a flare-up of a recurrent or chronic health problem in the last 7 days. The direct care staff does NOT think the [place] is capable of increased independence in ADLs, IADLs and/or mobility. The does NOT have a limited life expectancy of 6-12 months. NON-INSTITUTIONAL CARE/CHRONIC CARE MANAGEMENT SCORING SUMMARY: meets SIMRAN Criteria. meets Category A SIMRAN criteria. has one or more behaviors and/or cognitive problems (Sections E and F). The complexity of 's care needs is greater than Home Telehealth services alone can provide. PACT, endocrinology, Clinical pharmacist, Respiratory therapy, podiatry, Mental Health, optometry, Community cardiology, Community urology, Community dermatology Referral is not recommended. Services already in place? Yes TYPE OF ENCOUNTER: Telephone Length of call: 11-20 minutes /KAVITHA Cormier, RN RPM-Home Telehealth Reel Film Inspector Signed: 05/03/2024 12:59 ALCIRA LAYNE [facility]
--- OUTSIDE RECORDS SUMMARY | 2024-08-21 23:26 | XMS_ITS | Encounter Summary ---
Author Name [facility] [place] [facility] [place] Address [address] [place] [address] Care Team Providers Care Health Educator Name Role Phone MARIIA BROUSSARD Primary Care [...] Patient's Relationship to Policy [employer] ([id number]) PRESCRIPT ION [facility] Mar 11, 2018 [id number] MADAI DELUNA OTHER RELATIONSHIP [facility] PREFERRED PROVIDER ORGANIZAT ION (PPO) Jun 11, 2011 [id number] MADAI DELUNA PATIENT [employer] [facility] (WNR) MEDICARE ADVANTAGE [facility] (WNR) Sep 11, 2022 [id number] [phone] GILL DELUNA PATIENT MEDICARE (WNR) MEDICARE (M) PART A January 10, 2012 PART A [id number] GILL DELUNA PATIENT MEDICARE (WNR) MEDICARE (M) PART B January 10, 2012 PART B [id number] [phone] GILL DELUNA PATIENT MEDICARE (WNR) MEDICARE (M) PART A January 10, 2012 PART A [id number] GILL DELUNA PATIENT UNICARE PREFERRED PROVIDER ORGANIZAT ION (PPO) [facility] RE STATE INDE* * Mar 11, 2015 [id number] MADAI DELUNA SPOUSE [facility] (WNR) MEDICARE ADVANTAGE [facility] (WNR) Mar 11, 2021 [id number] GILL DELUNA PATIENT [facility] (WNR) MEDICARE ADVANTAGE [facility] (WNR) Sep 11, 2021 [id number] GILL DELUNA PATIENT Selected Encounter This section includes the information on record at NE for the Encounter. Date/Time Encounter Type Encounter Description Reason Provider Source Apr 15, 2024 01:12 PM PRO PHONE CALL 5-10 MIN TELEPHONE/MEDICIN E ICD-10-CM I11.9 Hypertensive heart disease without heart failure RAAD WILD [facility] Encounter Template Text not used by NE Assessments - Encounter Diagnoses This section includes the primary and secondary diagnoses documented for the Encounter. Date/Time Primary/Secondary Diagnosis Diagnosis Name Provider Source Apr 15, 2024 01:12 PM PRIMARY Hypertensive heart disease without heart failure RAAD WILD [facility] Plan of Treatment: Future Appointments (+ 6 months) and Future Tests (+/- 45 days) The Plan of Treatment section includes future care activities for the patient from all NE treatmentfacilities. This section includes future appointments and future orders which are active, pending or scheduled. Future Appointments This section includes appointments that were scheduled to occur 6 months from the date of the Encounter, up to a maximum of 20 appointments. The data comes from all NE treatment facilities. Appointment Date/Time Appointment Type Appointme nt Facility Name May 16, 2024 11:30 AM AMBULATORY - MEDICINE [facility] Jun 11, 2024 08:30 AM [facility] Jun 18, 2024 02:15 PM [facility] Jun 20, 2024 10:45 AM [facility] Jul 03, 2024 09:30 AM AMBULATORY - MEDICINE [facility] [place] [facility] Jul 16, 2024 09:40 AM AMBULATORY - MEDICINE [place] [facility] [place] [facility] Jul 31, 2024 02:00 PM AMBULATORY - MEDICINE [place] [facility] [place] [facility] Aug 16, 2024 11:00 AM AMBULATORY - MEDICINE [place] [facility] [place] [facility] Aug 22, 2024 01:00 PM AMBULATORY - MEDICINE [place] [facility] [place] [facility] Aug 26, 2024 03:30 PM AMBULATORY - MEDICINE [place] [facility] [place] [facility] Active, Pending, and Scheduled Orders This section includes a listing of several types of active, pending, and scheduled orders, including clinic medications orders, diagnostic test orders, procedure orders and consult orders; where the start date of the order is 45 days before the date of the Encounter or 45 days after the date of theEncounter. The data comes from all [place] treatment facilities. Test Date/Time Test Type Test Details Facility Name May 03, 2024 03:01 PM Consult Order V[facility] [place] May 09, 2024 10:35 AM Consult Order COMM[facility]ITY [facility]-CARDIOLOGY [facility] Lab Results: +/- 30 days of the encounter This section includes the Chemistry and Hematology Lab Results on record with NE for the patient. Radiology Reports and Pathology Reports are provided separately, in subsequent sections. Lab Results This section contains the Chemistry/Hematology Results that were resulted 30 days before or 30 daysafter the date of the Encounter. Date/Time Source Result Type Result - Unit Interpretation Reference Range Comment May 07, 2024 08:37 AM [place] PSA Specimen Type: SERUM No comment entered. Ordering Provider: MARIIA ABBOTT Report Released Date/Time: May 04, 2024 12:14 AM Reporting Lab: [facility] [address] [address] Performing Lab: [address] [address] PSA 2.56 ng/mL 0.00-4.00 May 03, 2024 01:53 PM [place] BASIC METABOLIC PANEL (fasting) Specime n Type: SERUM No comment entered. Ordering Provider: MARIIA ABBOTT Report Released Date/Time: Oct 30, 2023 05:07 PM Reporting Lab: [facility] [address] [address] Performing Lab: [address] [address] UREA NITROGEN 46 mg/dL H 7-25 GLUCOSE 294 mg/dL H 65-100 SODIUM 137 mmol/L 135-145 POTASSIUM 4.4 mmol/L 3.5-5.0 CHLORIDE 105 mmol/L 100-110 CO2 21 meq/L 20-30 CREATININE, Serum 1.05 mg/dL 0.50-1.40 eGFR(CKD-EPI 2020) 73 mL/min >60 May 03, 2024 01:53 PM [place] HEMOGLOBIN A1C PANEL Specimen Type: BLOOD Comment: [...] Oct 30, 2023 05:07 PM Reporting Lab: [address] [address] Performing Lab: [address] [address] HEMOGLOBIN A1C 8.1 H 4.0-5.6 May 03, 2024 01:53 PM [place] LIPID PANEL FASTING Specimen Type: SERUM No comment entered. Ordering Provider: MARIIA ABBOTT Report Released Date/Time: Oct 30, 2023 05:07 PM Reporting Lab: [facility] [address] [address] Performing Lab: [address] [address] CHOLESTEROL 108 mg/dL TRIGLYCERIDE 79 mg/dL 0-150 LDL calculated 47 mg/dL 0-129 CHOL/HDL 2.4 HDL CHOLESTEROL 45 mg/dL 40-60 May 03, 2024 01:53 PM [place] LIVER FUNCTION Specimen Type: SERUM No comment entered. Ordering Provider: MARIIA ABBOTT Report Released Date/Time: Oct 30, 2023 05:07 PM Reporting Lab: [address] [address] Performing Lab: [address] [address] PROTEIN,TOTAL 7.3 g/dL 6.0-8.3 ALBUMIN 3.8 g/dL 3.5-5.0 ALKALINE PHOSPHATASE 73 U/L 40-150 AST 21 U/L 5-34 ALT 22 U/L BILIRUBIN, TOTAL 0.5 mg/dL 0.2-1.2 May 03, 2024 01:53 PM [place] TSH Specimen Type: SERUM No comment entered. Ordering Provider: MARIIA ABBOTT Report Released Date/Time: Oct 30, 2023 05:07 PM Reporting Lab: [address] [address] Performing Lab: [address] [address] TSH 1.73 u[IU]/mL 0.35-5.00 May 03, 2024 01:53 PM [place] MICROALBUMIN CREATININE RATIO PANEL Spe cimen Type: URINE No comment entered. Ordering Provider: MARIIA ABBOTT Report Released Date/Time: Oct 30, 2023 05:07 PM Reporting Lab: [address] [address] Performing Lab: [address] [address] MICROALBUMIN/C REATININE RATIO 128.4 mg/g H 0-29.9 MICROALBUMIN,Q UANTITATIVE 5.4 mg/dL RR UNAVAIL CREATININE URINE 42.05 mg/dL May 03, 2024 01:53 PM [place] VITAMIN D (25-OH) Specimen Type: SERUM No comment entered. Ordering Provider: MARIIA ABBOTT Report Released Date/Time: Oct 30, 2023 05:07 PM Reporting Lab: [address] [address] Performing Lab: [address] [address] VITAMIN D (25-OH) 24 ng/mL 20-50 May 03, 2024 01:53 PM [place] CALCIUM Specimen Type: SERUM No comment entered. Ordering Provider: MARIAI ABBOTT Report Released Date/Time: Oct 30, 2023 05:07 PM Reporting Lab: [address] [address] Performing Lab: [address] [address] CALCIUM 9.7 mg/dL 8.5-10.2 May 03, 2024 01:53 PM [place] CBC AND DIFF (AUTO) Specimen Type: BLOOD No comment entered. Ordering Provider: MARIIA ABBOTT Report Released Date/Time: Oct 30, 2023 05:07 PM Reporting Lab: [address] [address] Performing Lab: [address] [address] WBC 6.25 10*3/uL 4.50-11.00 RBC 5.12 10*6/uL [...] and tobacco- related health factors from the [facility] facility where the Encounter took place. Current Smoking Status This section includes the most current smoking, or tobacco-related health factor, from the NE facility where the Encounter took place. Date/Time Current Smoking Status Comment Facil ity Dec 12, 2022 03:10 PM VA-TOBACCO NEVER USED [place] [facility] [place] [facility] Encounter Notes: All associated encounter notes This section contains the clinical notes associated to the Encounter. Date/Time Encounter Note(s) Provider Source Apr 15, 2024 01:12 PM CARE COORDINATION HOME TELEHEALTH FOLLOW-UP NOTE: LOCAL TITLE: HT INTERVENTION NOTE STANDARD TITLE: CARE COORDINATION HOME TELEHEALTH FOLLOW-UP NOTE DATE OF NOTE: APR 15, 2024@13:12 ENTRY DATE: APR 15, 2024@13:12:42 AUTHOR: ZEINA WILD EXP COSIGNER: URGENCY: STATUS: COMPLETED HT INTERVENTION NOTE Has ADDENDA [place] is actively enrolled in the Home Telehealth program. Review of data shows the following out of range responses: GILL DELUNA (-[id number]) Vital Sign for: 03/17/2024 - 04/15/2024 (All times are EST; All weights are lbs) Primary DMP: VHA-HTN Comorbid(s): Summary Weight Sys BP Barnett BP HR Pain High 172.8 166 113 101 Low 164.4 102 49 41 Average 167.6 135 73 72 Date Time Wt Time Sys Barnett Time HR Time Pain 04/14/2024 23:16 164.6 23:15 131/65 23:15 43 04/12/2024 22:58 165.8 22:57 126/79 22:57 70 04/10/2024 22:36 168.4 22:36 155/85 22:36 91 04/06/2024 23:25 169.6 23:24 164/80 23:24 78 04/05/2024 13:29 165.4 13:28 131/73 13:28 80 04/04/2024 23:20 170.4 23:19 166/73 23:19 57 04/04/2024 17:38 172.8 17:38 113/75 17:38 61 04/04/2024 00:13 168.0 00:12 128/66 00:12 68 04/03/2024 21:42 169.6 21:41 117/59 21:41 83 04/03/2024 01:23 164.4 01:22 104/54 01:22 70 04/02/2024 23:37 165.0 23:36 132/73 23:36 70 04/02/2024 00:04 167.6 00:03 123/73 00:03 84 04/01/2024 20:44 167.0 20:43 153/79 20:43 91 03/31/2024 20:54 166.8 20:53 145/67 20:53 79 03/31/2024 - - 20:35 83 03/30/2024 - 22:57 155/76 22:57 59 03/30/2024 20:08 171.0 20:08 131/70 20:08 83 03/30/2024 - 19:43 138/72 19:43 73 03/30/2024 17:17 167.4 17:17 102/89 17:17 67 03/29/2024 21:42 167.6 21:42 102/49 21:42 45 03/28/2024 23:22 167.4 23:22 159/86 23:22 45 03/28/2024 - 21:32 150/74 21:32 93 03/28/2024 - 16:21 123/65 16:21 74 03/28/2024 15:55 166.4 15:54 124/64 15:54 74 03/28/2024 12:56 166.4 12:55 142/67 12:55 68 03/28/2024 11:49 165.8 11:48 136/75 11:48 49 03/26/2024 23:04 169.2 - - 03/25/2024 - 15:53 124/77 15:53 98 03/25/2024 15:19 167.8 15:17 145/78 15:17 101 03/24/2024 23:03 166.6 23:02 128/68 23:02 45 03/24/2024 - 19:33 134/77 19:33 94 03/24/2024 - 18:54 157/113 18:54 83 03/24/2024 15:19 165.6 15:18 132/68 15:18 80 03/24/2024 00:06 168.4 00:06 143/72 00:06 75 03/23/2024 00:50 169.0 00:49 129/69 00:49 50 03/22/2024 - 18:42 150/68 18:42 41 03/22/2024 00:13 167.4 00:12 125/71 00:12 80 03/21/2024 21:28 166.6 21:27 114/70 21:27 88 03/21/2024 19:00 170.2 18:59 140/76 18:59 50 03/21/2024 00:30 168.4 00:29 157/73 00:29 81 03/20/2024 - 20:07 140/70 20:07 45 03/20/2024 16:49 167.0 16:48 135/63 16:48 79 03/19/2024 00:22 166.2 00:21 146/83 00:21 88 Source: [employer] [facility]; [employer] Assessment: identified by full name and . Called to check in due low HR of 43. [place] denies any symptoms of bradycardia. Denies confusion, dizziness and lightheadedness, fatigue and SOB. [place] a CC Cardiology consult with Dr. Salmon. He needs to call and schedule an appointment. Encouraged to call and schedule follow up. Reviewed importance of seeking immediate medical attention if his HR gets any lower, especially below 40. Encouraged to call 911. reports last week he accidentally put drops in his eye that were not meant for his eye. They were prescribed for his dog's skin. It was after hours, so he called Poison Control. They seemed unsure what to do, but told him to go to the ER. He ended up washing out his eyes and monitoring at home. He denies any symptoms or concerns at this time. Reviewed seeking immediate medical attention if something like this were to occur again. Reviewed local Urgent Care Centers in his area that are in [facility] network. recovering well after prostate surgery. Vert little discomfort left. [place] is able to mow the lawn and go for 1/2 mile walks like he did before the surgery. Pharmacy: continues to mistrust his Dexcom sensor. He will wear it for a week until it craps out. and then the next week he will check with finger sticks. He does not think the Dexcom is very accurate and does not trust it. PACT Team: Maryellen would like a medical bracelet for his Diabetes. He has an ex-girlfriend who lives nearby and has been educated on how to use his glucagon emergency kit. Encouraged [place] to educate anyone he is close with on how to use the kit in case of emergency. TYPE OF ENCOUNTER: Telephone Length of call: 5-10 minutes /simone/ ZEINA TREVINO MSN, RN, CNL RPM-HOME TELEHEALTH Signed: 04/15/2024 13:24 Receipt Acknowledged By: 04/25/2024 14:53 /es/ LUX ARMSTRONG CLINICAL MOTION STUDY ENGINEER 04/22/2024 07:20 /es/ PADILLA GAVIRIA NP NURSE PRACTITIONER for MARIIA Zavaleta JOELSHAIMELISSA 04/16/2024 15:50 /simone/ ZAID ODONNELL RN REGISTERED NURSE 04/16/2024 ADDENDUM STATUS: COMPLETED Prosthetic request done as requested. /simone/ ZAID ODONNELL RN REGISTERED NURSE Signed: 04/16/2024 15:50 ZEINA WILD [facility]
--- OUTSIDE RECORDS SUMMARY | 2024-08-21 23:26 | XMS_ITS | Encounter Summary ---
Author Name [facility] [place] Address [address] [place] [address] Care Team Providers Care Reverse Unit Operator Fisherman Name Role Phone MARIIA BROUSSARD Primary Care [...] Patient's Relationship to Policy [employer] EXPRESS SCRIPTS ([id number]) PRESCRIPT ION [facility] [address] [address] Mar 11, 2018 [id number] MADAI DELUNA OTHER RELATIONSHIP [facility] PREFERRED PROVIDER ORGANIZAT ION (PPO) Jun 11, 2011 [id number] [phone] MADAI DELUNA PATIENT HUMANA [facility] (WNR) MEDICARE ADVANTAGE [facility] (WNR) Sep 11, 2022 [id number] GILL DELUNA PATIENT MEDICARE (WNR) MEDICARE (M) PART A January 10, 2012 PART A [id number] GILL DELUNA PATIENT MEDICARE (WNR) MEDICARE (M) PART B January 10, 2012 PART B [id number] 41A GILL DELUNA PATIENT MEDICARE (WNR) MEDICARE (M) PART A January 10, 2012 PART A [id number] [phone] GILL DELUNA PATIENT UNICARE PREFERRED PROVIDER ORGANIZAT ION (PPO) [place] RE STATE INDE* * Mar 11, 2015 [id number] MADAI DELUNA SPOUSE [facility] (WNR) MEDICARE ADVANTAGE [facility] (WNR) Mar 11, 2021 [id number] GILL DELUNA PATIENT [facility] (WNR) MEDICARE ADVANTAGE [facility] (WNR) Sep 11, 2021 [id number] GILL DELUNA PATIENT Selected Encounter This section includes the information on record at [place] for the Encounter. Date/Time Encounter Type Encounter Description Reason Provider Source Mar 29, 2024 11:52 AM PRO PHONE CALL 5-10 MIN TELEPHONE/MEDICIN E ICD-10-CM I11.9 Hypertensive heart disease without heart failure EDMOND MAO [facility] Encounter Template Text not used by [place] Assessments - Encounter Diagnoses This section includes the primary and secondary diagnoses documented for the Encounter. Date/Time Primary/Secondary Diagnosis Diagnosis Name Provider Source Mar 29, 2024 11:52 AM PRIMARY Hypertensive heart disease without heart failure EDMOND MAO [facility] Plan of Treatment: Future Appointments (+ 6 months) and Future Tests (+/- 45 days) The Plan of Treatment section includes future care activities for the patient from all [place] treatmentfacilities. This section includes future appointments and future orders which are active, pending or scheduled. Future Appointments This section includes appointments that were scheduled to occur 6 months from the date of the Encounter, up to a maximum of 20 appointments. The data comes from all [place] treatment facilities. Appointment Date/Time Appointment Type Appointme nt Facility Name May 16, 2024 11:30 AM [facility] Jun 11, 2024 08:30 AM [facility] Jun 18, 2024 02:15 PM [facility] Jun 20, 2024 10:45 AM [facility] Jul 03, 2024 09:30 AM [facility] [place] [facility] [place] [facility] Jul 16, 2024 09:40 AM AM[place] [facility] [facility] [facility] Jul 31, 2024 02:00 PM AM[place]UL[place]ORY [place] [facility] [facility] [facility] Aug 16, 2024 11:00 AM AMBULATORY - MEDICINE [facility] Aug 22, 2024 01:00 PM AMBULATORY - MEDICINE [facility] NTRL [facility] Aug 26, 2024 03:30 PM [facility]AT[facility] Active, Pending, and Scheduled Orders This section includes a listing of several types of active, pending, and scheduled orders, including clinic medications orders, diagnostic test orders, procedure orders and consult orders; where the start date of the order is 45 days before the date of the Encounter or 45 days after the date of theEncounter. The data comes from all [place] treatment facilities. Test Date/Time Test Type Test Details Facility Name May 03, 2024 03:01 PM Consult Order VISN 1 [facility]AT[facility] OUTPT IFC CT Cons General Maintenance Technician's [facility] May 09, 2024 10:35 AM Consult Order COMMUNITY CARE-CARDIOLOGY Cons General Maintenance Technician[facility] Lab Results: +/- 30 days of the encounter This section includes the Chemistry and Hematology Lab Results on record with [place] for the patient. Radiology Reports and Pathology Reports are provided separately, in subsequent sections. Lab Results This section contains the Chemistry/Hematology Results that were resulted 30 days before or 30 daysafter the date of the Encounter. Date/Time Source Result Type Result - Unit Interpretation Reference Range Comment Mar 01, 2024 10:53 AM [facility] HEMOGLOBIN A1C PANEL Specimen Type: BLOOD Comment: Values obtained from A1C measurements can vary. For atypical A1C assays, a reported value of 7.0 could actually be between 6.72 and 7.28 if measured by a reference method. A reported value of 9.0 could actually be between 8.73 and 9.27. Ref: http://www.ngs p.org/CAPdata. asp Ordering Provider: BRANDON ARMSTRONG Report Released Date/Time: Mar 01, 2024 10:14 AM Reporting Lab: [address] [address] Performing Lab: [facility] [address] [facility] [address] HEMOGLOBIN A1C 7.8 H 4.0-5.6 Mar 01, 2024 10:53 AM [facility] LIPID PANEL FASTING Specimen Type: SERUM No comment entered. Ordering Provider: BRANDON ARMSTRONG Report Released Date/Time: Mar 01, 2024 10:33 AM Reporting Lab: [facility] [address] [facility] [address] Performing Lab: [address] [address] CHOLESTEROL 117 mg/dL TRIGLYCERIDE 94 mg/dL 0-150 LDL calculated 54 mg/dL 0-129 CHOL/HDL 2.7 HDL CHOLESTEROL 44 mg/dL 40-60 Mar 01, 2024 10:53 AM [facility] MICROALBUMIN CREATININE RATIO PANEL Specimen Type: URINE No comment entered. Ordering Provider: BRANDON ARMSTRONG Report Released Date/Time: Mar 01, 2024 10:36 AM Reporting Lab: [address] [address] Performing Lab: [address] [address] MICROALBUMIN/C REATININE RATIO 13.2 mg/g 0-29.9 MICROALBUMIN,Q UANTITATIVE 0.7 mg/dL RR UNAVAIL CREATININE URINE 52.95 mg/dL Mar 01, 2024 10:53 AM [facility] BASIC METABOLIC PANEL (non-fasting) Specimen Type: SERUM No comment entered. Ordering Provider: BRANDON ARMSTRONG Report Released Date/Time: Mar 01, 2024 10:14 AM Reporting Lab: [address] [address] Performing Lab: [address] [address] UREA NITROGEN 41 mg/dL H 7-25 GLUCOSE 224 mg/dL H 65-100 SODIUM 132 mmol/L L 135-145 POTASSIUM 3.9 mmol/L 3.5-5.0 CHLORIDE 100 mmol/L 100-110 CO2 25 meq/L 20-30 CREATININE, Serum 1.02 mg/dL 0.50-1.40 eGFR(CKD-EPI 2020) 76 mL/min >60 Social History: Smoking Status (Most current) and Tobacco Use (All prior to encounter date) This section includes the most current, and the historical, smoking and tobacco- related health factors from the [place] facility where the Encounter took place. Current Smoking Status This section includes the most current smoking, or tobacco-related health factor, from the [place] facility where the Encounter took place. Date/Time Current Smoking Status Comment Facil ity Dec 12, 2022 03:10 PM VA-TOBACCO NEVER USED [place] [facility] [place] [facility] Encounter Notes: All associated encounter notes This section contains the clinical notes associated to the Encounter. Date/Time Encounter Note(s) Provider Source Mar 29, 2024 11:52 AM CARE COORDINATION HOME TELEHEALTH FOLLOW-UP NOTE: LOCAL TITLE: HT INTERVENTION NOTE STANDARD TITLE: CARE COORDINATION HOME TELEHEALTH FOLLOW-UP NOTE DATE OF NOTE: MAR 29, 2024@11:52 ENTRY DATE: MAR 29, 2024@11:52:49 AUTHOR: LUCIANO MAO COSIGNER: URGENCY: STATUS: COMPLETED Liscomb is actively enrolled in the Home Telehealth program. Review of data shows the following out of range responses: GILL DELUNA (-2242) Vital Sign for: 02/29/2024 - 03/29/2024 (All times are EST; All weights are lbs) Primary DMP: VHA-HTN Comorbid(s): Summary Weight Sys BP Barnett BP HR Pain High 171.6 161 113 106 Low 165.4 92 50 37 Average 167.7 136 72 71 Date Time Wt Time Sys Barnett Time HR Time Pain 03/28/2024 23:22 167.4 23:22 159/86 23:22 45 [...] 03/19/2024 00:22 166.2 00:21 146/83 00:21 88 03/15/2024 - 17:37 92/50 17:37 103 03/15/2024 17:24 165.4 17:23 99/54 17:23 106 03/15/2024 00:29 167.4 00:28 135/60 00:28 50 03/14/2024 20:17 166.0 20:16 127/59 - 03/14/2024 12:55 165.8 12:54 150/96 12:54 80 03/14/2024 01:04 169.4 01:03 129/67 01:03 81 03/13/2024 - 20:37 117/60 20:37 70 03/13/2024 18:20 167.8 18:19 124/68 18:19 50 03/13/2024 00:11 169.0 00:10 124/69 00:10 46 03/12/2024 23:05 167.6 23:05 124/71 23:05 86 03/12/2024 21:08 169.0 21:07 149/78 21:07 95 03/11/2024 - 21:24 156/75 21:24 50 03/11/2024 00:25 167.0 - - 03/11/2024 00:07 171.6 00:06 130/71 00:06 82 03/10/2024 - 23:33 134/74 23:33 47 03/10/2024 18:29 170.2 18:28 158/69 18:28 45 03/09/2024 22:16 170.4 22:15 155/80 22:15 92 03/09/2024 - 00:16 147/61 00:16 44 03/08/2024 23:15 169.2 23:14 121/61 23:14 90 03/08/2024 - 20:56 124/75 20:56 92 03/08/2024 - 20:32 151/79 20:32 65 03/08/2024 15:21 166.8 15:21 157/82 15:21 37 03/08/2024 14:39 166.8 14:38 161/81 14:38 69 Source: [employer] [facility] [employer]; [employer] System Assessment: HTN the past 2 days. Vet recently had prostate surgery. Intervention(s)/Plan: identified by full name and . Liscomb denies chest pain, shortness of breath, lightheadedness/dizziness , headache, vision changes, nausea, unusual weakness. He states that elevated BP is normal for me . He advised that he had to stop medications prior to surgery and that he just resumed Valsartan and Chlorthalidone yesterday. Planer Feeder educated on target BP <130/80. Encouraged to continue taking medications as ordered, maintain a low sodium diet of 1500mg or less per day and notify provider promptly for any change in condition as he continues to recover from prostate surgery. reported understanding of all education provided. Remote Patient Monitoring/Home Telehealth will continue to monitor. TYPE OF ENCOUNTER: Telephone Length of call: 5-10 minutes /simone/ Luciano Mao RN [facility]-Home Telehealth Top Ironer Signed: 03/29/2024 12:00 LUCIANO MAO [place] [facility]
--- OUTSIDE RECORDS SUMMARY | 2024-08-21 23:26 | XMS_ITS | Encounter Summary ---
Author Name [facility] [place] Organization [place] Address [address] [place] [address] Care Team Providers Care Inbound Customer Service Representative Name Role Phone MARIIA BROUSSARD Primary Care [...] Patient's Relationship to Policy [employer] EXPRESS SCRIPTS ([id number]) PRESCRIPT ION [facility] Mar 11, 2018 [id number] [phone] MADAI DELUNA OTHER RELATIONSHIP [facility] PREFERRED PROVIDER ORGANIZAT ION (PPO) Jun 11, 2011 [id number] [phone] MADAI DLEUNA PATIENT HUMANA [facility] (WNR) MEDICARE ADVANTAGE [facility] (WNR) Sep 11, 2022 [id number] [phone] GILL DELUNA PATIENT MEDICARE (WNR) MEDICARE (M) PART A January 10, 2012 PART A [id number] [phone] GILL DELUNA PATIENT MEDICARE (WNR) MEDICARE (M) PART B January 10, 2012 PART B [id number] GILL DELUNA PATIENT MEDICARE (WNR) MEDICARE (M) PART A January 10, 2012 PART A [id number] [phone] GILL DELUNA PATIENT UNICARE PREFERRED PROVIDER ORGANIZAT ION (PPO) [place] RE STATE INDE* * Mar 11, 2015 [id number] MADAI DELUNA SPOUSE [facility] (WNR) MEDICARE ADVANTAGE [facility] (WNR) Mar 11, 2021 [id number] GILL DELUNA PATIENT [facility] (WNR) MEDICARE ADVANTAGE [facility] (WNR) Sep 11, 2021 [id number] GILL DELUNA PATIENT Selected Encounter This section includes the information on record at [place] for the Encounter. Date/Time Encounter Type Encounter Description Reason Provider Source Apr 08, 2024 01:36 PM PRO PHONE CALL 5-10 MIN TELEPHONE/MEDICIN E ICD-10-CM I11.9 Hypertensive heart disease without heart failure MONICA QUINTEROS [facility] Encounter Template Text not used by [place] Assessments - Encounter Diagnoses This section includes the primary and secondary diagnoses documented for the Encounter. Date/Time Primary/Secondary Diagnosis Diagnosis Name Provider Source Apr 08, 2024 01:36 PM PRIMARY Hypertensive heart disease without heart failure MONICA QUINTEROS [facility] Plan of Treatment: Future Appointments (+ 6 months) and Future Tests (+/- 45 days) The Plan of Treatment section includes future care activities for the patient from all [place] treatmentfacilities. This section includes future appointments and future orders which are active, pending or scheduled. Future Appointments This section includes appointments that were scheduled to occur 6 months from the date of the Encounter, up to a maximum of 20 appointments. The data comes from all [place] treatment facilities. Appointment Date/Time Appointment Type Appointme nt Facility Name May 16, 2024 11:30 AM AMBULATORY - MEDICINE [facility] Jun 11, 2024 08:30 AM [facility] Jun 18, 2024 02:15 PM AMBULATORY - MEDICINE [facility] Jun 20, 2024 10:45 AM AMBULATORY - MEDICINE [facility] Jul 03, 2024 09:30 AM AMBULATORY - MEDICINE [place] [facility] [place] [facility] Jul 16, 2024 09:40 AM AM[place]UL[place]ORY - [place]IC[place] [facility] Jul 31, 2024 02:00 PM AMBULATORY - [place]INE [place] [facility] Aug 16, 2024 11:00 AM AM[place]ULATORY - [place]INE [place] [facility] Aug 22, 2024 01:00 PM AMBULATORY - [place] [facility] Aug 26, 2024 03:30 PM AMBULATORY - [place]INE [place] [facility] Active, Pending, and Scheduled Orders This section includes a listing of several types of active, pending, and scheduled orders, including clinic medications orders, diagnostic test orders, procedure orders and consult orders; where the start date of the order is 45 days before the date of the Encounter or 45 days after the date of theEncounter. The data comes from all [place] treatment facilities. Test Date/Time Test Type Test Details Facility Name May 03, 2024 03:01 PM Consult Order VISN 1 [facility] PS[facility]CHIATRY OUTPT IFC CT Cons [facility] [place] May 09, 2024 10:35 AM Consult Order COMMUNITY CARE-CARDIOLOGY Cons Bill Peddler's [facility] Lab Results: +/- 30 days of the encounter This section includes the Chemistry and Hematology Lab Results on record with [place] for the patient. Radiology Reports and Pathology Reports are provided separately, in subsequent sections. Lab Results This section contains the Chemistry/Hematology Results that were resulted 30 days before or 30 daysafter the date of the Encounter. Date/Time Source Result Type Result - Unit Interpretation Reference Range Comment May 07, 2024 08:37 AM [place] PSA Specimen Type: SERUM No comment entered. Ordering Provider: MARIIA ABBOTT Report Released Date/Time: May 04, 2024 12:14 AM Reporting Lab: [address] [address] Performing Lab: [address] [address] PSA 2.56 ng/mL 0.00-4.00 May 03, 2024 01:53 PM [place] HEMOGLOBIN A1C PANEL Specimen Type: BLOOD Comment: [...] Oct 30, 2023 05:07 PM Reporting Lab: [address] [address] Performing Lab: [address] [address] HEMOGLOBIN A1C 8.1 H 4.0-5.6 May 03, 2024 01:53 PM [place] LIPID PANEL FASTING Specimen Type: SERUM No comment entered. Ordering Provider: MARIIA ABBOTT Report Released Date/Time: Oct 30, 2023 05:07 PM Reporting Lab: [address] [address] Performing Lab: [address] [address] CHOLESTEROL 108 mg/dL TRIGLYCERIDE 79 mg/dL 0-150 LDL calculated 47 mg/dL 0-129 CHOL/HDL 2.4 HDL CHOLESTEROL 45 mg/dL 40-60 May 03, 2024 01:53 PM [place] BASIC METABOLIC PANEL (fasting) Specime n Type: SERUM No comment entered. Ordering Provider: MARIIA ABBOTT Report Released Date/Time: Oct 30, 2023 05:07 PM Reporting Lab: [address] [address] Performing Lab: [address] [address] UREA NITROGEN 46 mg/dL H 7-25 GLUCOSE 294 mg/dL H 65-100 SODIUM 137 mmol/L 135-145 POTASSIUM 4.4 mmol/L 3.5-5.0 CHLORIDE 105 mmol/L 100-110 CO2 21 meq/L 20-30 CREATININE, Serum 1.05 mg/dL 0.50-1.40 eGFR(CKD-EPI 2020) 73 mL/min >60 May 03, 2024 01:53 PM [place] LIVER FUNCTION Specimen Type: SERUM No comment entered. Ordering Provider: MARIIA ABBOTT Report Released Date/Time: Oct 30, 2023 05:07 PM Reporting Lab: [address] [address] Performing Lab: [address] [address] PROTEIN,TOTAL 7.3 g/dL 6.0-8.3 ALBUMIN 3.8 g/dL 3.5-5.0 ALKALINE PHOSPHATASE 73 U/L 40-150 AST 21 U/L 5-34 ALT 22 U/L BILIRUBIN, TOTAL 0.5 mg/dL 0.2-1.2 May 03, 2024 01:53 PM [place] TSH Specimen Type: SERUM No comment entered. Ordering Provider: MARIIA ABBOTT Report Released Date/Time: Oct 30, 2023 05:07 PM Reporting Lab: [address] [address] Performing Lab: [address] [address] TSH 1.73 u[IU]/mL 0.35-5.00 May 03, 2024 01:53 PM [place] MICROALBUMIN CREATININE RATIO PANEL Spe cimen Type: URINE No comment entered. Ordering Provider: MARIIA ABBOTT Report Released Date/Time: Oct 30, 2023 05:07 PM Reporting Lab: [address] [address] Performing Lab: [address] [address] MICROALBUMIN/C REATININE RATIO 128.4 mg/g H 0-29.9 MICROALBUMIN,Q UANTITATIVE 5.4 mg/dL RR UNAVAIL CREATININE URINE 42.05 mg/dL May 03, 2024 01:53 PM [place] VITAMIN D (25-OH) Specimen Type: SERUM No comment entered. Ordering Provider: MARIIA ABBOTT Report Released Date/Time: Oct 30, 2023 05:07 PM Reporting Lab: [address] [address] Performing Lab: [address] [address] VITAMIN D (25-OH) 24 ng/mL 20-50 May 03, 2024 01:53 PM [place] CALCIUM Specimen Type: SERUM No comment entered. Ordering Provider: MARIIA ABBOTT Report Released Date/Time: Oct 30, 2023 05:07 PM Reporting Lab: [address] [address] Performing Lab: [address] [address] CALCIUM 9.7 mg/dL 8.5-10.2 May 03, 2024 01:53 PM [place] CBC AND DIFF (AUTO) Specimen Type: BLOOD No comment entered. Ordering Provider: MARIIA ABBOTT Report Released Date/Time: Oct 30, 2023 05:07 PM Reporting Lab: [address] [address] Performing Lab: [address] [address] WBC 6.25 10*3/uL 4.50-11.00 RBC 5.12 10*6/uL [...] smoking, or tobacco-related health factor, from the [place] facility where the Encounter took place. Date/Time Current Smoking Status Comment Facil ity Dec 12, 2022 03:10 PM VA-TOBACCO NEVER USED [place] [facility] [facility] Encounter Notes: All associated encounter notes This section contains the clinical notes associated to the Encounter. Date/Time Encounter Note(s) Provider Source Apr 08, 2024 01:36 PM CARE COORDINATION HOME TELEHEALTH FOLLOW-UP NOTE: LOCAL TITLE: HT INTERVENTION NOTE STANDARD TITLE: CARE COORDINATION HOME TELEHEALTH FOLLOW-UP NOTE DATE OF NOTE: APR 08, 2024@13:36 ENTRY DATE: APR 08, 2024@13:36:22 AUTHOR: DENITA QUINTEROS EXP COSIGNER: URGENCY: STATUS: COMPLETED is actively enrolled in the Home Telehealth program. Identified by full name and . Review of data shows the following out of range responses: 13:35 (EST) - Alerts generated: weight gain of 5.0 or more lbs over 7 day(s), weight gain of 3.0 or more lbs since last weight, blood pressure. Biometric data: weight is 169.6 lbs and blood pressure is 164/80 with a heart rate of 78 Transmit date/time was 04/06/2024 at 23:26 (EST). Source: [facility]; [employer] Measurements: GILL DELUNA (-2126) Vital Sign for: 03/10/2024 - 04/08/2024 (All times are EST; All weights are lbs) Primary DMP: VHA-HTN Comorbid(s): Summary Weight Sys BP Barnett BP HR High 172.8 166 113 106 Low 164.4 92 49 41 Average 167.8 134 71 72 Date Time Wt Time Sys Barnett Time HR == 04/06/2024 23:25 169.6 23:24 164/80 23:24 78 [...] 03/10/2024 18:29 170.2 18:28 158/69 18:28 45 Source: [facility]; [employer] Pro System Assessment: Called and spoke with Farina to assess elevated blood pressure reading and weight gain. denies chest pain, shortness of breath, lightheadedness/dizziness , nausea, jaw/neck/arm pain, headache vision changes, lower extremity edema, or unusual weakness. Farina reports feeling in usual state of health, aside from some discomfort after surgery. Farina reports elevated blood pressures are not atypical for him. Reports since his procedure he has noticed elevated systolic blood pressure readings periodically. reports using tylenol twice daily for discomfort with good effect. Reports has follow up appointment 05/01/2024. Farina reports having to hold some medications in setting of operation and restart once cleared post op. reports restarted medications approximately ten days ago. reports taking all medications as prescribed. Recently requested refills of some medications. Farina is taking the following medications for management of HTN: OUTPT CHLORTHALIDONE 25MG TAB (Status = Active/Suspended) TAKE ONE TABLET BY MOUTH ONCE DAILY TO REMOVE FLUID/CONTROL BLOOD PRESSURE Rx# [id number] Last Released: Qty/Days Supply: 90 Rx Expiration Date: 03/10/25 Refills Remainin OUTPT CLONIDINE HCL 0.1MG TAB (Status = Active) TAKE ONE TABLET BY MOUTH EVERY 12 HOURS TO CONTROL BLOOD PRESSURE Rx# [id number] Last Released: 03/22/24 Qty/Days Supply: 180/90 Rx Expiration Date: 03/10/25 Refills Remainin Indication: FOR HIGH BLOOD PRESSURE OUTPT VALSARTAN 320MG TAB (Status = Active/Suspended) TAKE ONE TABLET BY MOUTH ONCE DAILY Rx# [id number] Last Released: Qty/Days Supply: 90 Rx Expiration Date: 03/10/25 Refills Remainin will continue to monitor vital signs data utilizing HT/RPM equipment. Intervention(s)/Plan: Reviewed/educated signs/symptoms hyper/hypotension and when to seek emergency care. Reviewed/educated adjunctive causes of elevated blood pressure readings such as pain or discomfort. Reviewed/educated to contact appropriate providers regarding questions/concerns post operatively. Reviewed/educated medications, purpose, dosing, timing, and possible side effects. 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 Will continue to monitor using HT/RPM services and follow up as indicated. TYPE OF ENCOUNTER: Telephone Length of call: 5-10 minutes /simone/ DENITA QUINTEROS RN HOME TELEHEALTH VALUER Signed: 04/08/2024 13:52 DENITA QUINTEROS [place] [facility]
--- OUTSIDE RECORDS SUMMARY | 2024-08-21 23:26 | XMS_ITS | Encounter Summary ---
Author Name [place] Address [address] [place] [address] Care Team Providers Care Online Merchandising Coordinator Name Role Phone MARIIA BROUSSARD Primary Care [...] Patient's Relationship to Policy [employer] SCRIPTS ([id number]) PRESCRIPT ION [facility] Mar 11, 2018 [id number] [phone] MADAI DELUNA OTHER RELATIONSHIP [facility] PREFERRED PROVIDER ORGANIZAT ION (PPO) Jun 11, 2011 [id number] MADAI DELUNA PATIENT HUMANA [facility] (WNR) MEDICARE ADVANTAGE [facility] (WNR) Sep 11, 2022 [id number] [phone] GILL DELUNA PATIENT MEDICARE (WNR) MEDICARE (M) PART A January 10, 2012 PART A [id number] [phone] MIKIE GILL PATIENT MEDICARE (WNR) MEDICARE (M) PART B January 10, 2012 PART B [id number] [phone] GILL DELUNA PATIENT MEDICARE (WNR) MEDICARE (M) PART A January 10, 2012 PART A [id number] [phone] GILL DELUNA PATIENT UNICARE PREFERRED PROVIDER ORGANIZAT ION (PPO) UNICA RE STATE INDE* * Mar 11, 2015 [id number] MADAI DELUNA SPOUSE [facility] (WNR) MEDICARE ADVANTAGE [facility] (WNR) Mar 11, 2021 [id number] [phone] GILL DELUNA PATIENT WELLCARE [facility] (WNR) MEDICARE ADVANTAGE [facility] (WNR) Sep 11, 2021 [id number] GILL DELUNA PATIENT Selected Encounter This section includes the information on [place] at [place] for the Encounter. Date/Time Encounter Type Encounter Description Reason Provider Source Apr 04, 2024 10:18 AM Outpatient Encounter HT NON-VIDEO MONITORING ICD-10-CM I11.9 Hypertensive heart disease without heart failure ALCIRA LAYNE Belle Encounter Template Text not used by [place] Assessments - Encounter Diagnoses This section includes the primary and secondary diagnoses documented for the Encounter. Date/Time Primary/Secondary Diagnosis Diagnosis Name Provider Source Apr 04, 2024 10:27 AM PRIMARY Hypertensive heart disease without heart failure ALCIRA LAYNE [facility] ELIZAChar [facility] Plan of Treatment: Future Appointments (+ 6 months) and Future Tests (+/- 45 days) The Plan of Treatment section includes future care activities for the patient from all [place] treatmentfacilities. This section includes future appointments and future orders which are active, pending or scheduled. Future Appointments This section includes appointments that were scheduled to occur 6 months from the date of the Encounter, up to a maximum of 20 appointments. The data comes from all [place] treatment facilities. Appointment Date/Time Appointment Type Appointme nt Facility Name May 16, 2024 11:30 AM AMBULATORY - MEDICINE [facility] NTRL RAOUL PEREIRA [facility] Jun 11, 2024 08:30 AM [facility] Jun 18, 2024 02:15 PM [facility] Jun 20, 2024 10:45 AM [facility] Jul 03, 2024 09:30 AM AMBULATORY - MEDICINE [facility] NTRL ELIZAChar [facility] Jul 16, 2024 09:40 AM AM[place]UL[place]ORY [place]ICINE [place] [facility] Jul 31, 2024 02:00 PM AMBULATORY - MEDICINE [place] [facility] Aug 16, 2024 11:00 AM AMBULATORY - MEDICINE [place] [facility] Aug 22, 2024 01:00 PM AM[place]ULATORY - [place]ICINE [place] [facility] Aug 26, 2024 03:30 PM [place] [facility] Active, Pending, and Scheduled Orders This section includes a listing of several types of active, pending, and scheduled orders, including clinic medications orders, diagnostic test orders, procedure orders and consult orders; where the start date of the order is 45 days before the date of the Encounter or 45 days after the date of theEncounter. The data comes from all [place] treatment facilities. Test Date/Time Test Type Test Details Facility Name May 03, 2024 03:01 PM Consult Order VISN 1 [facility] OUTPT [facility] Cons Wool And Pelt Grader's Choice [facility] May 09, 2024 10:35 AM Consult Order COMM[facility]ITY [facility]ARE-CARDIOLOGY Cons Wool And Pelt Grader's [facility] Lab Results: +/- 30 days of the encounter This section includes the Chemistry and Hematology Lab Results on record with [place] for the patient. Radiology Reports and Pathology Reports are provided separately, in subsequent sections. Lab Results This section contains the Chemistry/Hematology Results that were resulted 30 days before or 30 daysafter the date of the Encounter. Date/Time Source Result Type Result - Unit Interpretation Reference Range Comment May 03, 2024 01:53 PM [facility] HEMOGLOBIN A1C PANEL Specimen Type: BLOOD Comment: [...] Oct 30, 2023 05:07 PM Reporting Lab: [address] [address] Performing Lab: [place] [address] [address] HEMOGLOBIN A1C 8.1 H 4.0-5.6 May 03, 2024 01:53 PM [facility] LIPID PANEL FASTING Specimen Type: SERUM No comment entered. Ordering Provider: MARIIA ABBOTT Report Released Date/Time: Oct 30, 2023 05:07 PM Reporting Lab: [address] [address] Performing Lab: [address] [address] CHOLESTEROL 108 mg/dL TRIGLYCERIDE 79 mg/dL 0-150 LDL calculated 47 mg/dL 0-129 CHOL/HDL 2.4 HDL CHOLESTEROL 45 mg/dL 40-60 May 03, 2024 01:53 PM [facility] LIVER FUNCTION Specimen Type: SERUM No comment entered. Ordering Provider: MARIIA ABBOTT Report Released Date/Time: Oct 30, 2023 05:07 PM Reporting Lab: [address] [address] Performing Lab: [address] [address] PROTEIN,TOTAL 7.3 g/dL 6.0-8.3 ALBUMIN 3.8 g/dL 3.5-5.0 ALKALINE PHOSPHATASE 73 U/L 40-150 AST 21 U/L 5-34 ALT 22 U/L BILIRUBIN, TOTAL 0.5 mg/dL 0.2-1.2 May 03, 2024 01:53 PM [facility] BASIC METABOLIC PANEL (fasting) Specime n Type: SERUM No comment entered. Ordering Provider: MARIIA ABBOTT Report Released Date/Time: Oct 30, 2023 05:07 PM Reporting Lab: [address] [address] Performing Lab: [address] [address] UREA NITROGEN 46 mg/dL H 7-25 GLUCOSE 294 mg/dL H 65-100 SODIUM 137 mmol/L 135-145 POTASSIUM 4.4 mmol/L 3.5-5.0 CHLORIDE 105 mmol/L 100-110 CO2 21 meq/L 20-30 CREATININE, Serum 1.05 mg/dL 0.50-1.40 eGFR(CKD-EPI 2020) 73 mL/min >60 May 03, 2024 01:53 PM [facility] TSH Specimen Type: SERUM No comment entered. Ordering Provider: MARIIA ABBOTT Report Released Date/Time: Oct 30, 2023 05:07 PM Reporting Lab: [address] [address] Performing Lab: [address] [address] TSH 1.73 u[IU]/mL 0.35-5.00 May 03, 2024 01:53 PM [facility] VITAMIN D (25-OH) Specimen Type: SERUM No comment entered. Ordering Provider: MARIIA ABBOTT Report Released Date/Time: Oct 30, 2023 05:07 PM Reporting Lab: [address] [address] Performing Lab: [address] [address] VITAMIN D (25-OH) 24 ng/mL 20-50 May 03, 2024 01:53 PM [facility] MICROALBUMIN CREATININE RATIO PANEL Spe cimen Type: URINE No comment entered. Ordering Provider: MARIIA ABBOTT Report Released Date/Time: Oct 30, 2023 05:07 PM Reporting Lab: [address] [address] Performing Lab: [address] [address] MICROALBUMIN/C REATININE RATIO 128.4 mg/g H 0-29.9 MICROALBUMIN,Q UANTITATIVE 5.4 mg/dL RR UNAVAIL CREATININE URINE 42.05 mg/dL May 03, 2024 01:53 PM [facility] CALCIUM Specimen Type: SERUM No comment entered. Ordering Provider: MARIIA ABBOTT Report Released Date/Time: Oct 30, 2023 05:07 PM Reporting Lab: [facility] [address] [facility] [address] Performing Lab: [address] [address] CALCIUM 9.7 mg/dL 8.5-10.2 May 03, 2024 01:53 PM [facility] CBC AND DIFF (AUTO) Specimen Type: BLOOD No comment entered. Ordering Provider: MARIIA ABBOTT Report Released Date/Time: Oct 30, 2023 05:07 PM Reporting Lab: [address] [address] Performing Lab: [address] [address] WBC 6.25 10*3/uL 4.50-11.00 RBC 5.12 10*6/uL [...] and tobacco- related health factors from the [place] facility where the Encounter took place. Current Smoking Status This section includes the most current smoking, or tobacco-related health factor, from the [place] facility where the Encounter took place. Date/Time Current Smoking Status Comment Facil ity Dec 12, 2022 03:10 PM VA-TOBACCO NEVER USED [facility] Encounter Notes: All associated encounter notes This section contains the clinical notes associated to the Encounter. Date/Time Encounter Note(s) Provider Source Apr 04, 2024 10:19 AM CARE COORDINATION HOME TELEHEALTH SUMMARIZATION NOTE: LOCAL TITLE: HT MONTHLY MONITOR NOTE STANDARD TITLE: CARE COORDINATION HOME TELEHEALTH SUMMARIZATION DATE OF NOTE: APR 04, 2024@10:19 ENTRY DATE: APR 04, 2024@10:19:32 AUTHOR: ALCIRA LAYNE EXP COSIGNER: URGENCY: STATUS: COMPLETED The is enrolled in the Home Telehealth (HT) program and continues to be monitored via HT technology. The data sent by the is reviewed and analyzed by the HT staff, who provide ongoing case management and health education while communicating and collaborating with the health care team as appropriate. This note covers a total of 30 minutes for the month monitored. Month monitored: March 2024 Dx: Hypertension /es/ KAVITHA Albert, RN [facility]-Home Telehealth Yarn Washer Signed: 04/04/2024 10:27 ALCIRA LAYNE [facility]
--- OUTSIDE RECORDS SUMMARY | 2024-08-21 23:26 | XMS_ITS ---
Author Name [place] Address [address] [place] [address] Care Team Providers Care Linoleum Tile Floor Layer Name Role Phone MARIIA BROUSSARD Primary Care [...] Patient's Relationship to Policy [employer] ([id number]) PRESCRIPT ION [facility] Mar 11, 2018 [id number] MADAI DELUNA OTHER RELATIONSHIP [facility] PREFERRED PROVIDER ORGANIZAT ION (PPO) Jun 11, 2011 [id number] MADAI DELUNA PATIENT HUMANA [facility] (WNR) MEDICARE ADVANTAGE [facility] (WNR) Sep 11, 2022 [id number] [phone] GILL DELUNA PATIENT MEDICARE (WNR) MEDICARE (M) PART A January 10, 2012 PART A [id number] MIKIE GILL PATIENT MEDICARE (WNR) MEDICARE (M) PART B January 10, 2012 PART B [id number] [phone] GILL DELUNA PATIENT MEDICARE (WNR) MEDICARE (M) PART A January 10, 2012 PART A [id number] GILL DELUNA PATIENT UNICARE PREFERRED PROVIDER ORGANIZAT ION (PPO) UNICA RE STATE INDE* * Mar 11, 2015 [id number] MADAI DELUNA [facility] (WNR) MEDICARE ADVANTAGE [facility] (WNR) Mar 11, 2021 [id number] [phone] GILL DELUNA PATIENT WELLCARE [facility] (WNR) MEDICARE ADVANTAGE [facility] (WNR) Sep 11, 2021 [id number] GILL DELUNA PATIENT Selected Encounter This section includes the information on record at [place] for the Encounter. Date/Time Encounter Type Encounter Description Reason Provider Source Apr 30, 2024 03:03 PM Outpatient Encounter HT NON-VIDEO MONITORING ICD-10-CM I11.9 Hypertensive heart disease without heart failure ALCIRA LAYNE Belle Encounter Template Text not used by [place] Assessments - Encounter Diagnoses This section includes the primary and secondary diagnoses documented for the Encounter. Date/Time Primary/Secondary Diagnosis Diagnosis Name Provider Source Apr 30, 2024 03:09 PM PRIMARY Hypertensive heart disease without heart failure ALCIRA LAYNE [facility] ELIZAChar [facility] Plan of Treatment: Future Appointments (+ 6 months) and Future Tests (+/- 45 days) The Plan of Treatment section includes future care activities for the patient from all [place] treatmentfacilities. This section includes future appointments and future orders which are active, pending or scheduled. Future Appointments This section includes appointments that were scheduled to occur 6 months from the date of the Encounter, up to a maximum of 20 appointments. The data comes from all [place] treatment facilities. Appointment Date/Time Appointment Type Appointme nt Facility Name May 16, 2024 11:30 AM AMBULATORY - MEDICINE [facility] NTRL RAOUL PEREIRA [facility] Jun 11, 2024 08:30 AM [facility] Jun 18, 2024 02:15 PM [facility] Jun 20, 2024 10:45 AM [facility] Jul 03, 2024 09:30 AM AMBULATORY - MEDICINE [facility] NTR ELIZAChar [facility] Jul 16, 2024 09:40 AM AMBULATORY - MEDICINE [place] [facility] Jul 31, 2024 02:00 PM AMBULATORY - MEDICINE [place] [facility] Aug 16, 2024 11:00 AM AMBULATORY - MEDICINE [place] [facility] Aug 22, 2024 01:00 PM AMBULATORY - MEDICINE [place] [facility] Aug 26, 2024 03:30 PM AMBULATORY - MEDICINE [place] [facility] Oct 17, 2024 01:00 PM AMBULATORY - MEDICINE [place] [facility] Oct 24, 2024 10:30 AM AMBULATORY - PSYCHIATRY [place] [place] [facility] Oct 24, 2024 10:30 AM AMBULATORY [place]RY [place] [facility] Oct 29, 2024 08:30 AM AMBULATORY - [...] of theEncounter. The data comes from all [place] treatment facilities. Test Date/Time Test Type Test Details Facility Name May 03, 2024 03:01 PM Consult Order VISN 1 [facility] OUTPT [facility] CT Cons Accounts Adjustable Clerk's Choice MARINE May 09, 2024 10:35 AM Consult Order COMM[facility]ITY CARE-CARDIOLOGY Cons Accounts Adjustable Clerk's Choice MARINE Lab Results: +/- 30 days of the encounter This section includes the Chemistry and Hematology Lab Results on record with [place] for the patient. Radiology Reports and Pathology Reports are provided separately, in subsequent sections. Lab Results This section contains the Chemistry/Hematology Results that were resulted 30 days before or 30 daysafter the date of the Encounter. Date/Time Source Result Type Result - Unit Interpretation Reference Range Comment May 07, 2024 08:37 AM [facility]INE PSA Specimen Type: SERUM No comment entered. Ordering Provider: MARIIA ABBOTT Report Released Date/Time: May 04, 2024 12:14 AM Reporting Lab: [place] [facility] [address] Performing Lab: [address] [address] PSA 2.56 ng/mL 0.00-4.00 May 03, 2024 01:53 PM [place]INE BASIC METABOLIC PANEL (fasting) Specime n Type: SERUM No comment entered. Ordering Provider: MARIIA ABBOTT Report Released Date/Time: Oct 30, 2023 05:07 PM Reporting Lab: [address] [address] Performing Lab: [address] [address] UREA NITROGEN 46 mg/dL H 7-25 GLUCOSE 294 mg/dL H 65-100 SODIUM 137 mmol/L 135-145 POTASSIUM 4.4 mmol/L 3.5-5.0 CHLORIDE 105 mmol/L 100-110 CO2 21 meq/L 20-30 CREATININE, Serum 1.05 mg/dL 0.50-1.40 eGFR(CKD-EPI 2020) 73 mL/min >60 May 03, 2024 01:53 PM [place] LIPID PANEL FASTING Specimen Type: SERUM No comment entered. Ordering Provider: MARIIA ABBOTT Report Released Date/Time: Oct 30, 2023 05:07 PM Reporting Lab: [address] [address] Performing Lab: [address] [address] CHOLESTEROL 108 mg/dL TRIGLYCERIDE 79 mg/dL 0-150 LDL calculated 47 mg/dL 0-129 CHOL/HDL 2.4 HDL CHOLESTEROL 45 mg/dL 40-60 May 03, 2024 01:53 PM MARINE HEMOGLOBIN A1C PANEL Specimen Type: BLOOD Comment: Values obtained from A1C measurements can vary. For atypical A1C assays, a reported value of 7.0 could actually be between 6.72 and 7.28 if measured by a reference method. A reported value of 9.0 could actually be between 8.73 and 9.27. Ref: http://www.ngs p.org/CAPdata. asp Ordering Provider: AMRIIA ABBOTT Report Released Date/Time: Oct 30, 2023 05:07 PM Reporting Lab: [facility] [address] [facility] [address] Performing Lab: [facility] [address] HEMOGLOBIN A1C 8.1 H 4.0-5.6 May 03, 2024 01:53 PM MARINE LIVER FUNCTION Specimen Type: SERUM No comment entered. Ordering Provider: MARIIA ABBOTT Report Released Date/Time: Oct 30, 2023 05:07 PM Reporting Lab: [facility] [address] Performing Lab: [facility] [address] PROTEIN,TOTAL 7.3 g/dL 6.0-8.3 ALBUMIN 3.8 g/dL 3.5-5.0 ALKALINE PHOSPHATASE 73 U/L 40-150 AST 21 U/L 5-34 ALT 22 U/L BILIRUBIN, TOTAL 0.5 mg/dL 0.2-1.2 May 03, 2024 01:53 PM MARINE TSH Specimen Type: SERUM No comment entered. Ordering Provider: MARIIA ABBOTT Report Released Date/Time: Oct 30, 2023 05:07 PM Reporting Lab: [facility] [address] Performing Lab: [facility] [address] [address] TSH 1.73 u[IU]/mL 0.35-5.00 May 03, 2024 01:53 PM [place] VITAMIN D (25-OH) Specimen Type: SERUM No comment entered. Ordering Provider: MARIIA ABBOTT Report Released Date/Time: Oct 30, 2023 05:07 PM Reporting Lab: [facility] [address] [address] Performing Lab: [facility] [address] VITAMIN D (25-OH) 24 ng/mL 20-50 May 03, 2024 01:53 PM MARINE CALCIUM Specimen Type: SERUM No comment entered. Ordering Provider: MARIIA ABBOTT Report Released Date/Time: Oct 30, 2023 05:07 PM Reporting Lab: [address] [address] Performing Lab: [address] [address] CALCIUM 9.7 mg/dL 8.5-10.2 May 03, 2024 01:53 PM MARINE MICROALBUMIN CREATININE RATIO PANEL Spe cimen Type: URINE No comment entered. Ordering Provider: MARIIA ABBOTT Report Released Date/Time: Oct 30, 2023 05:07 PM Reporting Lab: [address] [address] Performing Lab: [address] [address] MICROALBUMIN/C REATININE RATIO 128.4 mg/g H 0-29.9 MICROALBUMIN,Q UANTITATIVE 5.4 mg/dL RR UNAVAIL CREATININE URINE 42.05 mg/dL May 03, 2024 01:53 PM MARINE CBC AND DIFF (AUTO) Specimen Type: BLOOD No comment entered. Ordering Provider: MARIIA ABBOTT Report Released Date/Time: Oct 30, 2023 05:07 PM Reporting Lab: [address] [address] Performing Lab: [address] [address] WBC 6.25 10*3/uL 4.50-11.00 RBC 5.12 10*6/uL [...] and tobacco- related health factors from the [place] facility where the Encounter took place. Current Smoking Status This section includes the most current smoking, or tobacco-related health factor, from the [place] facility where the Encounter took place. Date/Time Current Smoking Status Comment Nadine jose Dec 12, 2022 03:10 PM VA-TOBACCO NEVER USED [place] [facility] Encounter Notes: All associated encounter notes This section contains the clinical notes associated to the Encounter. Date/Time Encounter Note(s) Provider Source Apr 30, 2024 03:04 PM CARE COORDINATION HOME TELEHEALTH SUMMARIZATION NOTE: LOCAL TITLE: MONTHLY MONITOR NOTE STANDARD TITLE: CARE COORDINATION HOME TELEHEALTH SUMMARIZATION DATE OF NOTE: APR 30, 2024@15:04 ENTRY DATE: APR 30, 2024@15:04:25 AUTHOR: ALCIRA LAYNE EXP COSIGNER: URGENCY: STATUS: [...] minutes for the month monitored. Month monitored: April 2024 Dx: Hypertension /es/ KAVITHA Albert, RN [facility]-Home Telehealth Dairy Grazer Signed: 04/30/2024 15:09 ALCIRA LAYNE [place] CNTRL WSN [facility]
--- OUTSIDE RECORDS SUMMARY | 2024-08-21 23:26 | XMS_ITS | Encounter Summary ---
Author Name [place] Address [address] [place] [address] Care Team Providers Care Biology Teacher Name Role Phone MARIIA BROUSSARD Primary Care [...] Patient's Relationship to Policy Mancera EXPRESS SCRIPTS ([id number]) PRESCRIPT ION [facility] Mar 11, 2018 [id number] MADAI DELUNA OTHER RELATIONSHIP [facility] PREFERRED PROVIDER ORGANIZAT ION (PPO) Jun 11, 2011 [id number] [phone] MADAI DELUNA PATIENT HUMANA [facility] (WNR) MEDICARE ADVANTAGE [facility] (WNR) Sep 11, 2022 [id number] [phone] GILL DELUNA PATIENT MEDICARE (WNR) MEDICARE (M) PART A January 10, 2012 PART A [id number] GILL DELUNA PATIENT MEDICARE (WNR) MEDICARE (M) PART B January 10, 2012 PART B [id number] GILL DELUNA PATIENT MEDICARE (WNR) MEDICARE (M) PART A January 10, 2012 PART A [id number] [phone] GILL DELUNA PATIENT UNICARE PREFERRED PROVIDER ORGANIZAT ION (PPO) CRI[facility] RE STATE THU[place]* * Mar 11, 2015 [id number] MADAI DELUNA SPOUSE [facility] (WNR) MEDICARE ADVANTAGE [facility] (WNR) Mar 11, 2021 [id number] GILL DELUNA PATIENT WELLCARE [facility] (WNR) MEDICARE ADVANTAGE [facility] (WNR) Sep 11, 2021 [id number] MIKIE GILL PATIENT Selected Encounter This section includes the information on record at [place] for the Encounter. Date/Time Encounter Type Encounter Description Reason Pro vider Source May 01, 2024 02:11 PM Outpatient Encounter TELEPHONE PRIMARY CARE IHE Encounter Template Text not used by [place] Plan of Treatment: Future Appointments (+ 6 months) and Future Tests (+/- 45 days) The Plan of Treatment section includes future care activities for the patient from all [place] treatmentfacilities. This section includes future appointments and future orders which are active, pending or scheduled. Future Appointments This section includes appointments that were scheduled to occur 6 months from the date of the Encounter, up to a maximum of 20 appointments. The data comes from all [place] treatment facilities. Appointment Date/Time Appointment Type Appointme nt Facility Name May 16, 2024 11:30 AM AMBULATORY - [place]ICINE [place] [facility] Jun 11, 2024 08:30 AM [facility] Jun 18, 2024 02:15 PM AMBULATORY - MEDICINE [facility] Jun 20, 2024 10:45 AM [facility] Jul 03, 2024 09:30 AM AM[place]ULATORY [place]ICINE [place] [facility] Jul 16, 2024 09:40 AM AMBULATORY - [place]ICINE [place] [facility] Jul 31, 2024 02:00 PM AMBULATORY - MEDICINE [place] [facility] Aug 16, 2024 11:00 AM AMBULATORY - MEDICINE [place] [facility] Aug 22, 2024 01:00 PM AMBULATORY - MEDICINE [place] [facility] Aug 26, 2024 03:30 PM AMBULATORY - MEDICINE [place] [facility] Oct 17, 2024 01:00 PM AMBULATORY - MEDICINE [place] [facility] Oct 24, 2024 10:30 AM AMBULATORY - PSYCHIATRY [place] [facility] [place] [facility] Oct 24, 2024 10:30 AM AMBULATORY - [place]ATRY [place] [facility] Oct 29, 2024 08:30 AM [...] of theEncounter. The data comes from all [place] treatment facilities. Test Date/Time Test Type Test Details Facility Name May 03, 2024 03:01 PM Consult Order VISN 1 [facility] PSYCHIATRY OUTPT IFC CT [facility] [place] May 09, 2024 10:35 AM Consult Order COMMUNITY CARE-CARDIOLOGY [facility] [place] Lab Results: +/- 30 days of the encounter This section includes the Chemistry and Hematology Lab Results on record with [place] for the patient. Radiology Reports and Pathology Reports are provided separately, in subsequent sections. Lab Results This section contains the Chemistry/Hematology Results that were resulted 30 days before or 30 daysafter the date of the Encounter. Date/Time Source Result Type Result - Unit Interpretation Reference Range Comment May 07, 2024 08:37 AM [place] PSA Specimen Type: SERUM No comment entered. Ordering Provider: MARIIA ABBOTT Report Released Date/Time: May 04, 2024 12:14 AM [facility] [address] [address] Performing Lab: [place] [facility] [address] [address] PSA 2.56 ng/mL 0.00-4.00 May 03, 2024 01:53 PM [place] LIPID PANEL FASTING Specimen Type: SERUM No comment entered. Ordering Provider: MARIIA ABBOTT Report Released Date/Time: Oct 30, 2023 05:07 PM Reporting Lab: [address] [address] Performing Lab: [address] [address] CHOLESTEROL 108 mg/dL TRIGLYCERIDE 79 mg/dL 0-150 LDL calculated 47 mg/dL 0-129 CHOL/HDL 2.4 HDL CHOLESTEROL 45 mg/dL 40-60 May 03, 2024 01:53 PM [place] HEMOGLOBIN A1C PANEL Specimen Type: BLOOD Comment: [...] Oct 30, 2023 05:07 PM Reporting Lab: [address] [address] Performing Lab: [address] [address] HEMOGLOBIN A1C 8.1 H 4.0-5.6 May 03, 2024 01:53 PM [place] LIVER FUNCTION Specimen Type: SERUM No comment entered. Ordering Provider: MARIIA ABBOTT Report Released Date/Time: Oct 30, 2023 05:07 PM Reporting Lab: [address] [address] Performing Lab: [address] [address] PROTEIN,TOTAL 7.3 g/dL 6.0-8.3 ALBUMIN 3.8 g/dL 3.5-5.0 ALKALINE PHOSPHATASE 73 U/L 40-150 AST 21 U/L 5-34 ALT 22 U/L BILIRUBIN, TOTAL 0.5 mg/dL 0.2-1.2 May 03, 2024 01:53 PM [place] BASIC METABOLIC PANEL (fasting) Specime n Type: SERUM No comment entered. Ordering Provider: MARIIA ABBOTT Report Released Date/Time: Oct 30, 2023 05:07 PM Reporting Lab: [facility] [address] [address] Performing Lab: [facility] [address] [address] UREA NITROGEN 46 mg/dL H 7-25 GLUCOSE 294 mg/dL H 65-100 SODIUM 137 mmol/L 135-145 POTASSIUM 4.4 mmol/L 3.5-5.0 CHLORIDE 105 mmol/L 100-110 CO2 21 meq/L 20-30 CREATININE, Serum 1.05 mg/dL 0.50-1.40 eGFR(CKD-EPI 2020) 73 mL/min >60 May 03, 2024 01:53 PM [place] TSH Specimen Type: SERUM No comment entered. Ordering Provider: MARIIA ABBOTT Report Released Date/Time: Oct 30, 2023 05:07 PM Reporting Lab: [facility] [address] [facility] [address] [address] TSH 1.73 u[IU]/mL 0.35-5.00 May 03, 2024 01:53 PM [place] VITAMIN D (25-OH) Specimen Type: SERUM No comment entered. Ordering Provider: MARIIA ABBOTT Report Released Date/Time: Oct 30, 2023 05:07 PM Reporting Lab: [facility] [address] Performing [facility] [address] [address] VITAMIN D (25-OH) 24 ng/mL 20-50 May 03, 2024 01:53 PM [place] MICROALBUMIN CREATININE RATIO PANEL Spe cimen Type: URINE No comment entered. Ordering Provider: MARIIA ABBOTT Report Released Date/Time: Oct 30, 2023 05:07 PM Reporting Lab: [facility] [address] Performing Lab: [address] [address] MICROALBUMIN/C REATININE RATIO 128.4 mg/g H 0-29.9 MICROALBUMIN,Q UANTITATIVE 5.4 mg/dL RR UNAVAIL CREATININE URINE 42.05 mg/dL May 03, 2024 01:53 PM [place] CALCIUM Specimen Type: SERUM No comment entered. Ordering Provider: MARIIA ABBOTT Report Released Date/Time: Oct 30, 2023 05:07 PM Reporting Lab: [address] [address] Performing Lab: [address] [address] CALCIUM 9.7 mg/dL 8.5-10.2 May 03, 2024 01:53 PM [place] CBC AND DIFF (AUTO) Specimen Type: BLOOD No comment entered. Ordering Provider: MARIIA ABBOTT Report Released Date/Time: Oct 30, 2023 05:07 PM Reporting Lab: [address] [address] Performing Lab: [address] [address] WBC 6.25 10*3/uL 4.50-11.00 RBC 5.12 10*6/uL [...] and tobacco- related health factors from the [place] facility where the Encounter took place. Current Smoking Status This section includes the most current smoking, or tobacco-related health factor, from the [place] facility where the Encounter took place. Date/Time Current Smoking Status Comment Facil ity Dec 12, 2022 03:10 PM VA-TOBACCO NEVER USED [facility] Encounter Notes: All associated encounter notes This section contains the clinical notes associated to the Encounter. Date/Time Encounter Note(s) Provider Source May 01, 2024 02:11 PM CARE COORDINATION HOME TELEHEALTH NOTE: LOCAL TITLE: HT NOTE STANDARD TITLE: CARE COORDINATION HOME TELEHEALTH NOTE DATE OF NOTE: MAY 01, 2024@14:11 ENTRY DATE: MAY 01, 2024@14:11:51 AUTHOR: ALCIRA LAYNE EXP COSIGNER: URGENCY: STATUS: COMPLETED Filley has not utilized HT equipment during the past four days. Called (Filley identified by full name and date of ) to review data and assess for any changes, questions or concerns. Filley reports he is doing well and feeling well. He is currently at Urology appointment waiting to see doctor for follow up. Filley agrees to resume use of HT equipment. /simone/ KAVITHA Albert, RN [facility] Tie Sawyer Signed: 05/01/2024 14:[address]
--- OUTSIDE RECORDS SUMMARY | 2024-08-21 23:26 | XMS_ITS | Encounter Summary ---
Author Name Department of [place] Organization [place] Address [address] [place] [address] Care Team Providers Care Dev Manager Name Role Phone MARIIA BROUSSARD Primary Care [...] Patient's Relationship to Policy Mancera EXPRESS SCRIPTS ([id number]) PRESCRIPT ION [facility] Mar 11, 2018 [id number] MADAI DELUNA OTHER RELATIONSHIP [facility] PREFERRED PROVIDER ORGANIZAT ION (PPO) Jun 11, 2011 [id number] MADAI DELUNA PATIENT HUMANA [facility] (WNR) MEDICARE ADVANTAGE [facility] (WNR) Sep 11, 2022 [id number] [phone] MIKIEGILL PATIENT MEDICARE (WNR) MEDICARE (M) PART A January 10, 2012 PART A [id number] MIKIE GILL PATIENT MEDICARE (WNR) MEDICARE (M) PART B January 10, 2012 PART B [id number] 41A GILL DELUNA PATIENT MEDICARE (WNR) MEDICARE (M) PART A January 10, 2012 PART A [id number] GILL DELUNA PATIENT UNICARE PREFERRED PROVIDER ORGANIZAT ION (PPO) [place] RE STATE INDE* * Mar 11, 2015 [id number] MADAI DELUNA [facility] (WNR) MEDICARE ADVANTAGE [facility] (WNR) Mar 11, 2021 [id number] GILL DELUNA PATIENT WELLCARE [facility] (WNR) MEDICARE ADVANTAGE [facility] (WNR) Sep 11, 2021 [id number] GILL DELUNA PATIENT Selected Encounter This section includes the information on record at [place] for the Encounter. Date/Time Encounter Type Encounter Description Reason Pro vider Source May 03, 2024 01:49 PM Outpatient Encounter PRIMARY CARE/MEDICINE IHE Encounter Template Text not used by [place] Plan of Treatment: Future Appointments (+ 6 months) and Future Tests (+/- 45 days) The Plan of Treatment section includes future care activities for the patient from all [place] treatmentfacilities. This section includes future appointments and future orders which are active, pending or scheduled. Future Appointments This section includes appointments that were scheduled to occur 6 months from the date of the Encounter, up to a maximum of 20 appointments. The data comes from all [place] treatment facilities. Appointment Date/Time Appointment Type Appointme nt Facility Name May 16, 2024 11:30 AM AMBULATORY - MEDICINE [place] [facility] Jun 11, 2024 08:30 AM AMBULATORY - MEDICINE [facility] Jun 18, 2024 02:15 PM AMBULATORY - MEDICINE [facility] Jun 20, 2024 10:45 AM AMBULATORY - MEDICINE [facility] Jul 03, 2024 09:30 AM AMBULATORY - MEDICINE [place] [facility] [place] [facility] Jul 16, 2024 09:40 AM AMBULATORY - MEDICINE [place] [facility] [place] [facility] Jul 31, 2024 02:00 PM AMBULATORY - MEDICINE [place] [facility] [place] [place] [facility] Aug 16, 2024 11:00 AM AMBULATORY - MEDICINE [place] [facility] [place] [facility] Aug 22, 2024 01:00 PM AMBULATORY - MEDICINE [place] [facility] Aug 26, 2024 03:30 PM AMBULATORY - MEDICINE [place] [facility] [place] [facility] Oct 17, 2024 01:00 PM AMBULATORY - MEDICINE [place] [facility] [place] [facility] Oct 24, 2024 10:30 AM AMBULATORY - PSYCHIATRY [place] [facility] [place] [facility] Oct 24, 2024 10:30 AM AMBULATORY - [place]ATRY [place] [facility] Oct 29, 2024 08:30 AM AMBULATORY [...] of theEncounter. The data comes from all [place] treatment facilities. Test Date/Time Test Type Test Details Facility Name May 03, 2024 03:01 PM Consult Order VISN 1 [facility] PSYCHIATRY OUTPT IFC CT Cons [facility] May 09, 2024 10:35 AM Consult Order COMMUNITY CARE-CARDIOLOGY Cons Ticket Dispenser [facility] Lab Results: +/- 30 days of the encounter This section includes the Chemistry and Hematology Lab Results on record with [place] for the patient. Radiology Reports and Pathology Reports are provided separately, in subsequent sections. Lab Results This section contains the Chemistry/Hematology Results that were resulted 30 days before or 30 daysafter the date of the Encounter. Date/Time Source Result Type Result - Unit Interpretation Reference Range Comment May 07, 2024 08:37 AM HOUSE PSA Specimen Type: SERUM No comment entered. Ordering Provider: MARIIA ABBOTT Report Released Date/Time: May 04, 2024 12:14 AM Reporting Lab: [facility] [address] [address] Performing Lab: [facility] [address] [address] PSA 2.56 ng/mL 0.00-4.00 May 03, 2024 01:53 PM HOUSE BASIC METABOLIC PANEL (fasting) Specime n Type: SERUM No comment entered. Ordering Provider: MARIIA ABBOTT Report Released Date/Time: Oct 30, 2023 05:07 PM Reporting Lab: [address] [address] Performing Lab: [address] [address] UREA NITROGEN 46 mg/dL H 7-25 GLUCOSE 294 mg/dL H 65-100 SODIUM 137 mmol/L 135-145 POTASSIUM 4.4 mmol/L 3.5-5.0 CHLORIDE 105 mmol/L 100-110 CO2 21 meq/L 20-30 CREATININE, Serum 1.05 mg/dL 0.50-1.40 eGFR(CKD-EPI 2020) 73 mL/min >60 May 03, 2024 01:53 PM HOUSE HEMOGLOBIN A1C PANEL Specimen Type: BLOOD Comment: [...] Oct 30, 2023 05:07 PM Reporting Lab: [address] [address] Performing Lab: [address] [address] HEMOGLOBIN A1C 8.1 H 4.0-5.6 May 03, 2024 01:53 PM HOUSE LIPID PANEL FASTING Specimen Type: SERUM No comment entered. Ordering Provider: MARIIA ABBOTT Report Released Date/Time: Oct 30, 2023 05:07 PM Reporting Lab: [address] [address] Performing Lab: [address] [address] CHOLESTEROL 108 mg/dL TRIGLYCERIDE 79 mg/dL 0-150 LDL calculated 47 mg/dL 0-129 CHOL/HDL 2.4 HDL CHOLESTEROL 45 mg/dL 40-60 May 03, 2024 01:53 PM HOUSE LIVER FUNCTION Specimen Type: SERUM No comment entered. Ordering Provider: MARIIA ABBOTT Report Released Date/Time: Oct 30, 2023 05:07 PM Reporting Lab: [address] [address] Performing Lab: [address] [address] PROTEIN,TOTAL 7.3 g/dL 6.0-8.3 ALBUMIN 3.8 g/dL 3.5-5.0 ALKALINE PHOSPHATASE 73 U/L 40-150 AST 21 U/L 5-34 ALT 22 U/L BILIRUBIN, TOTAL 0.5 mg/dL 0.2-1.2 May 03, 2024 01:53 PM HOUSE TSH Specimen Type: SERUM No comment entered. Ordering Provider: MARIIA ABBOTT Report Released Date/Time: Oct 30, 2023 05:07 PM Reporting Lab: [address] [address] Performing Lab: [address] [address] TSH 1.73 u[IU]/mL 0.35-5.00 May 03, 2024 01:53 PM HOUSE MICROALBUMIN CREATININE RATIO PANEL Spe cimen Type: URINE No comment entered. Ordering Provider: MARIIA ABBOTT Report Released Date/Time: Oct 30, 2023 05:07 PM Reporting Lab: [address] [address] Performing Lab: [address] [address] MICROALBUMIN/C REATININE RATIO 128.4 mg/g H 0-29.9 MICROALBUMIN,Q UANTITATIVE 5.4 mg/dL RR UNAVAIL CREATININE URINE 42.05 mg/dL May 03, 2024 01:53 PM HOUSE VITAMIN D (25-OH) Specimen Type: SERUM No comment entered. Ordering Provider: MARIIA ABBOTT Report Released Date/Time: Oct 30, 2023 05:07 PM Reporting Lab: [address] [address] Performing Lab: [address] [address] VITAMIN D (25-OH) 24 ng/mL 20-50 May 03, 2024 01:53 PM HOUSE CALCIUM Specimen Type: SERUM No comment entered. Ordering Provider: MARIIA ABBOTT Report Released Date/Time: Oct 30, 2023 05:07 PM Reporting Lab: [address] [address] Performing Lab: [address] [address] CALCIUM 9.7 mg/dL 8.5-10.2 May 03, 2024 01:53 PM HOUSE CBC AND DIFF (AUTO) Specimen Type: BLOOD No comment entered. Ordering Provider: MARIIA ABBOTT Report Released Date/Time: Oct 30, 2023 05:07 PM Reporting Lab: [address] [address] Performing Lab: [address] [address] WBC 6.25 10*3/uL 4.50-11.00 RBC 5.12 10*6/uL [...] and tobacco- related health factors from the [place] facility where the Encounter took place. Current Smoking Status This section includes the most current smoking, or tobacco-related health factor, from the [place] facility where the Encounter took place. Date/Time Current Smoking Status Comment Nadine jose May 03, 2024 10:00 AM VA-TOBACCO NEVER USED [facility] Tobacco Use History This section includes a history of the smoking, or tobacco-related health factors, that were collected on or before the date of the Encounter. The data comes from the [place] facility where the Encounter took place. Date/Time Smoking Status/Tobacco Use Comment Edis mathis Dec 12, 2022 03:10 PM VA-TOBACCO NEVER USED [facility] Encounter Notes: All associated encounter notes This section contains the clinical notes associated to the Encounter. Date/Time Encounter Note(s) Provider Source May 03, 2024 01:49 PM PRIMARY CARE NOTE: LOCAL TITLE: WALK-IN NOTE PRIMARY CARE (T) STANDARD TITLE: PRIMARY CARE NOTE DATE OF NOTE: MAY 03, 2024@13:49 ENTRY DATE: MAY 03, 2024@13:49:21 AUTHOR: LENA FLOOD EXP COSIGNER: URGENCY: STATUS: COMPLETED WALK-IN NOTE PRIMARY CARE (T) Has ADDENDA <====Click to Start Advanced Medical Support [place] presents to the Primary Care clinic with the following request: [ ]Medication Renewal/Refill [ ]Consultation with Team RN [ ]Symptoms [ X ]Other The states they are: [ ]Waiting [ X ]Not Waiting No Walk in visit scheduled with PACT Nurse [ X ] At this encounter the 's demographics were verified. [ X ] At this encounter the [place]'s Insurance information was verified. [ X ] At this encounter the below scheduled visits for the [place] were discussed and appointment reminder card was offered. Future appointments: 05/16/2024 11:30 CWM/NO/DERMATOLOGY BROMINATION EQUIPMENT OPERATOR AM 06/03/2024 13:00 CWM/SO/NUTRITION1 06/11/2024 08:30 CWM/SO/PODIATRY/ROSS 07/04/2024 10:00 CWM/SO/PHARM/PACT 2 [place] is asking for a PSA lab order to be put in. States his outside provider who performed the prostate surgery that they [facility] /simone/ LENA FLOOD ADVANCED [employer] [address] [employer]IGHT Signed: 05/03/2024 13:51 Receipt Acknowledged By: 05/07/2024 08:19 /simone/ ABDI ALMARAZ LPN LPN 05/08/2024 10:10 /es/ ZAID ODONNELL RN REGISTERED NURSE 05/07/2024 ADDENDUM STATUS: COMPLETED lab orders are in place. /simone/ ABDI ALMARAZ LPN LPN Signed: 05/07/2024 08:19 LENA FLOOD
--- OUTSIDE RECORDS SUMMARY | 2024-08-21 23:27 | XMS_ITS | Encounter Summary ---
Author Name [facility] [place] Address [address] [place] [address] Care Team Providers Care Directional Drill Operator Name Role Phone MARIIA BROUSSARD Primary Care [...] Patient's Relationship to Policy [employer] ([id number]) PRESCRIPT ION [facility] Mar 11, 2018 [id number] MADAI DELUNA OTHER RELATIONSHIP [facility] PREFERRED PROVIDER ORGANIZAT ION (PPO) Jun 11, 2011 [id number] MADAI DELUNA PATIENT HUMANA [facility] (WNR) MEDICARE ADVANTAGE [facility] (WNR) Sep 11, 2022 [id number] [phone] [place] PATIENT MEDICARE (WNR) MEDICARE (M) PART A January 10, 2012 PART A [id number] [phone] MIKIE GILL PATIENT MEDICARE (WNR) MEDICARE (M) PART B January 10, 2012 PART B [id number] [phone] GILL DELUNA PATIENT MEDICARE (WNR) MEDICARE (M) PART A January 10, 2012 PART A [id number] GILL DELUNA PATIENT UNICARE PREFERRED PROVIDER ORGANIZAT ION (PPO) CRISTHIAN RE STATE THUYE* * Mar 11, 2015 [id number] MADAI DELUNA SPOUSE [facility] (WNR) MEDICARE ADVANTAGE [facility] (WNR) Mar 11, 2021 [id number] GILL DELUNA PATIENT WELLCARE [facility] (WNR) MEDICARE ADVANTAGE [facility] (WNR) Sep 11, 2021 [id number] GILL DELUNA PATIENT Selected Encounter This section includes the information on record at [place] for the Encounter. Date/Time Encounter Type Encounter Description Reason Pro vider Source Mar 04, 2024 10:05 PM Outpatient Encounter CLINICAL PHARMACY I[facility] Encounter Template Text not used by [place] Plan of Treatment: Future Appointments (+ 6 months) and Future Tests (+/- 45 days) The Plan of Treatment section includes future care activities for the patient from all [place] treatmentfacilities. This section includes future appointments and future orders which are active, pending or scheduled. Future Appointments This section includes appointments that were scheduled to occur 6 months from the date of the Encounter, up to a maximum of 20 appointments. The data comes from all [place] treatment facilities. Appointment Date/Time Appointment Type Appointme nt Facility Name May 16, 2024 11:30 AM AMBULATORY - [place]ICINE [place] [facility] Jun 11, 2024 08:30 AM AMBULATORY - MEDICINE [facility] Jun 18, 2024 02:15 PM [facility] Jun 20, 2024 10:45 AM AM[facility]UL[facility]ORY - MEDICINE [facility] Jul 03, 2024 09:30 AM AMBULATORY - MEDICINE [place] [facility] [place] [facility] Jul 16, 2024 09:40 AM AMBULATORY - MEDICINE [place] [facility] [place] [facility] Jul 31, 2024 02:00 PM AMBULATORY - MEDICINE [place] [facility] [place] [facility] Aug 16, 2024 11:00 AM AMBULATORY - MEDICINE [place] [facility] Aug 22, 2024 01:00 PM AMBULATORY - MEDICINE [facility] Aug 26, 2024 03:30 PM AMBULATORY - MEDICINE [facility] Lab Results: +/- 30 days of the encounter This section includes the Chemistry and Hematology Lab Results on record with [place] for the patient. Radiology Reports and Pathology Reports are provided separately, in subsequent sections. Lab Results This section contains the Chemistry/Hematology Results that were resulted 30 days before or 30 daysafter the date of the Encounter. Date/Time Source Result Type Result - Unit Interpretation Reference Range Comment Mar 01, 2024 10:53 AM [facility] HEMOGLOBIN A1C PANEL Specimen Type: BLOOD [...] Mar 01, 2024 10:14 AM Reporting Lab: [facility] [address] [facility] [address] Performing Lab: [facility] [address] [facility] [address] HEMOGLOBIN A1C 7.8 H 4.0-5.6 Mar 01, 2024 10:53 AM [facility] MICROALBUMIN CREATININE RATIO PANEL Specimen Type: URINE No comment entered. Ordering Provider: BRANDON ARMSTRONG Report Released Date/Time: Mar 01, 2024 10:36 AM Reporting Lab: [facility] [address] [facility] [address] Performing Lab: [facility] [address] [facility] [address] MICROALBUMIN/C REATININE RATIO 13.2 mg/g 0-29.9 MICROALBUMIN,Q UANTITATIVE 0.7 mg/dL RR UNAVAIL CREATININE URINE 52.95 mg/dL Mar 01, 2024 10:53 AM [facility] LIPID PANEL FASTING Specimen Type: SERUM No comment entered. Ordering Provider: BRANDON ARMSTRONG Report Released Date/Time: Mar 01, 2024 10:33 AM Reporting Lab: [facility] [address] [facility] [address] Performing Lab: [facility] [address] [facility] [address] CHOLESTEROL 117 mg/dL TRIGLYCERIDE 94 mg/dL 0-150 LDL calculated 54 mg/dL 0-129 CHOL/HDL 2.7 HDL CHOLESTEROL 44 mg/dL 40-60 Mar 01, 2024 10:53 AM [facility] BASIC METABOLIC PANEL (non-fasting) Specimen Type: SERUM No comment entered. Ordering Provider: BRANDON ARMSTRONG Report Released Date/Time: Mar 01, 2024 10:14 AM Reporting Lab: [facility] [address] [facility] [address] Performing Lab: [address] [address] UREA NITROGEN 41 mg/dL H 7-25 GLUCOSE [...] and tobacco- related health factors from the [place] facility where the Encounter took place. Current Smoking Status This section includes the most current smoking, or tobacco-related health factor, from the [place] facility where the Encounter took place. Date/Time Current Smoking Status Comment Facil ity Dec 12, 2022 03:10 PM VA-TOBACCO NEVER USED [facility] Encounter Notes: All associated encounter notes This section contains the clinical notes associated to the Encounter. Date/Time Encounter Note(s) Provider Source Mar 04, 2024 10:05 PM DIABETOLOGY NOTE: LOCAL TITLE: INSULIN PUMP/CGM DOWNLOAD (T) STANDARD TITLE: DIABETOLOGY NOTE DATE OF NOTE: MAR 04, 2024@22:05 ENTRY DATE: MAR 04, 2024@22:05:58 AUTHOR: LUX ARMSTRONG EXP COSIGNER: URGENCY: STATUS: COMPLETED Please select: Personal Continuous Glucose Monitor- DEXCOM G7 Date of Documentation:Feb Please see attached scanned document in [facility]. /simone/ LUX ARMSTRONG CLINICAL SEMICONDUCTOR PROCESSING GROUP LEADER Signed: 03/04/2024 22:06 LUX ARMSTRONG [place]
--- OUTSIDE RECORDS SUMMARY | 2024-08-21 23:27 | XMS_ITS | Encounter Summary ---
Author Name [place] Address [address] [place] [address] Care Team Providers Care Ground Crew Chief Name Role Phone MARIIA BROUSSARD Primary Care [...] Patient's Relationship to Policy [employer] ([id number]) PRESCRIPT ION [facility] Mar 11, 2018 [id number] MADAI DELUNA OTHER RELATIONSHIP [facility] PREFERRED PROVIDER ORGANIZAT ION (PPO) Jun 11, 2011 [id number] MADAI DELUNA PATIENT HUMANA [facility] (WNR) MEDICARE ADVANTAGE [facility] (WNR) Sep 11, 2022 [id number] [phone] GILL DELUNA PATIENT MEDICARE (WNR) MEDICARE (M) PART A January 10, 2012 PART A [id number] 41A GILL DELUNA PATIENT MEDICARE (WNR) MEDICARE (M) PART B January 10, 2012 PART B [id number] 41A GILL DELUNA PATIENT MEDICARE (WNR) MEDICARE (M) PART A January 10, 2012 PART A [id number] [phone] GILL DELUNA PATIENT UNICARE PREFERRED PROVIDER ORGANIZAT ION (PPO) [place] RE STATE INDE* * Mar 11, 2015 [id number] MADAI DELUNA SPOUSE [facility] (WNR) MEDICARE ADVANTAGE [facility] (WNR) Mar 11, 2021 [id number] GILL DELUNA PATIENT [facility] (WNR) MEDICARE ADVANTAGE [facility] (WNR) Sep 11, 2021 [id number] GILL DELUNA PATIENT Selected Encounter This section includes the information on record at [place] for the Encounter. Date/Time Encounter Type Encounter Description Reason Provider Source Dec 26, 2023 10:15 AM PRO PHONE CALL 5-10 MIN TELEPHONE/MEDICIN E ICD-10-CM I11.9 Hypertensive heart disease without heart failure MONICA QUINTEROS [facility] Encounter Template Text not used by [place] Assessments - Encounter Diagnoses This section includes the primary and secondary diagnoses documented for the Encounter. Date/Time Primary/Secondary Diagnosis Diagnosis Name Provider Source Dec 26, 2023 10:15 AM PRIMARY Hypertensive heart disease without heart failure [facility] [place] [facility] Plan of Treatment: Future Appointments (+ 6 months) and Future Tests (+/- 45 days) The Plan of Treatment section includes future care activities for the patient from all [place] treatmentfacilities. This section includes future appointments and future orders which are active, pending or scheduled. Future Appointments This section includes appointments that were scheduled to occur 6 months from the date of the Encounter, up to a maximum of 20 appointments. The data comes from all [place] treatment facilities. Appointment Date/Time Appointment Type Appointme nt Facility Name January 15, 2024 01:40 PM AMBULATORY - [place]ICINE [place] [facility] January 22, 2024 08:30 AM [facility] Mar 01, 2024 10:00 AM AMBULATORY - MEDICINE [place] [facility] [place] [place] [facility] May 16, 2024 11:30 AM AMBULATORY - MEDICINE [place] [facility] [facility] Jun 11, 2024 08:30 AM [facility] Jun 18, 2024 02:15 PM [facility] Jun 20, 2024 10:45 AM AMBULATORY - MEDICINE [facility] Social History: Smoking Status (Most current) and Tobacco Use (All prior to encounter date) This section includes the most current, and the historical, smoking and tobacco- related health factors from the [place] facility where the Encounter took place. Current Smoking Status This section includes the most current smoking, or tobacco-related health factor, from the [place] facility where the Encounter took place. Date/Time Current Smoking Status Comment Facil damon Dec 12, 2022 03:10 PM [facility] Encounter Notes: All associated encounter notes This section contains the clinical notes associated to the Encounter. Date/Time Encounter Note(s) Provider Source Dec 26, 2023 10:15 AM CARE COORDINATION HOME TELEHEALTH FOLLOW-UP NOTE: LOCAL TITLE: HT INTERVENTION NOTE STANDARD TITLE: CARE COORDINATION HOME TELEHEALTH FOLLOW-UP NOTE DATE OF NOTE: DEC 26, 2023@10:15 ENTRY DATE: DEC 26, 2023@10:15:40 AUTHOR: DENITA QUINTEROS EXP COSIGNER: URGENCY: STATUS: COMPLETED HT INTERVENTION NOTE Has ADDENDA is actively enrolled in the Home Telehealth program. Identified by full name and . Review of data shows the following out of range responses: 10:14 (EST) - Alerts generated: weight gain of 5.0 or more lbs over 7 day(s), weight gain of 3.0 or more lbs since last weight, blood pressure, heart rate (BP). Biometric data: weight is 172.4, +5.2 lbs from previous weight on 12/21/2023, blood pressure is 160/79 with a heart rate of 46 and Transmit date/time was 12/25/2023 at 22:33 (EST). Source: [employer]; [employer] Pro System Measurements: GILL DELUNA (-[id number]) Vital Sign for: 11/27/2023 - 12/26/2023 (All times are EST; All weights are lbs) Primary DMP: VHA-HTN Comorbid(s): Summary Weight Sys BP Barnett BP HR High 172.4 190 95 108 Low 164.6 118 63 41 Average 168.4 150 77 78 Date Time Wt Time Sys Barnett Time HR == 12/25/2023 22:32 172.4 22:31 160/79 22:31 46 12/21/2023 15:09 167.2 15:08 141/71 15:08 87 12/20/2023 - 15:50 118/66 15:50 93 12/20/2023 13:41 169.2 13:40 128/74 13:40 90 12/19/2023 23:09 170.6 23:08 160/82 23:08 97 12/19/2023 18:41 168.4 18:40 149/78 18:40 90 12/19/2023 18:02 169.0 18:01 148/95 18:01 108 12/18/2023 23:55 170.6 23:54 141/81 23:54 83 12/16/2023 15:17 167.4 15:16 136/76 15:16 77 12/16/2023 01:13 170.4 01:12 151/79 01:12 81 12/14/2023 19:55 167.8 19:54 139/75 19:54 81 12/10/2023 16:54 167.0 16:53 166/77 16:53 74 12/08/2023 12:31 165.4 12:30 124/63 12:30 57 12/06/2023 22:24 169.2 22:23 136/85 22:23 87 12/04/2023 23:55 166.8 23:54 178/70 23:54 92 12/03/2023 15:41 164.6 15:41 178/72 15:41 41 11/28/2023 20:57 168.8 20:57 190/78 20:57 43 Source: [employer]; [employer] Assessment: Called and spoke with to assess elevated BP, weight gain, and low HR readings entered using HT/RPM equipment. states it has been up and down like that; I guess I'm a work in progress. Jackson denies chest pain, shortness of breath, lightheadedness/dizziness , nausea, jaw/neck/arm pain, palpitations, headaches, vision changes, le edema, or unusual weakness. Jackson reports taking all medications as ordered. Reports he likely performed his health check after evening medication administration. OUTPT CHLORTHALIDONE 25MG TAB (Status = Active) TAKE ONE TABLET BY MOUTH ONCE DAILY TO REMOVE FLUID/CONTROL BLOOD PRESSURE Rx# [id number] Last Released: 11/03/23 Qty/Days Supply: 90/90 Rx Expiration Date: 10/30/24 Refills Remainin OUTPT CLONIDINE HCL 0.1MG TAB (Status = Active) TAKE ONE TABLET BY MOUTH EVERY 12 HOURS TO CONTROL BLOOD PRESSURE Rx# [id number] Last Released: 12/20/23 Qty/Days Supply: 180/90 Rx Expiration Date: 10/11/24 Refills Remainin Indication: FOR HIGH BLOOD PRESSURE OUTPT VALSARTAN 320MG TAB (Status = Active) TAKE ONE TABLET BY MOUTH ONCE DAILY Rx# [id number] Last Released: 12/20/23 Qty/Days Supply: 90/90 Rx Expiration Date: 10/10/24 Refills Remainin reports appointment with community care director of manufacturing operations next month. Requested Jackson check vital signs data while on the phone with this greeting card writer. Jackson reports unable to do so while on the phone, but will have completed in approx 15 minutes. Intervention(s)/Plan: Reviewed/educated signs/symptoms hyper/hypotension and when to seek emergency care. Reviewed/educated signs/symptoms niru/tachycardia and when to seek emergency care. Reviewed/educated medications, dosing, timing, purpose, and possible side effects. Reviewed/educated upcoming appointments: Future Appointments: Date Time Clinic ==== 01/15/2024 13:40 COM CARE-CARDIOLOGY 01/22/2024 08:30 CWM/SO/PODIATRY/ROSS 03/01/2024 10:00 CWM/SO/PHARM/PACT 2 05/16/2024 11:30 CWM/NO/DERMATOLOGY C/AM 05/30/2024 09:30 CWM/SO/PACT 5 06/03/2024 13:00 CWM/SO/NUTRITION1 Jackson verbalizes understanding of above. Will continue to monitor using HT/RPM services. TYPE OF ENCOUNTER: Telephone Length of call: 5-10 minutes Vital signs data included for provider review. Will update readings once transmitted using HT/RPM equipment. /es/ DENITA QUINTEROS RN HOME TELEHEALTH OIL REFINERY PROCESS TECHNICIAN Signed: 12/26/2023 10:26 Receipt Acknowledged By: 01/01/2024 08:34 /es/ MARIIA BROUSSARD MD PHYSICIAN 12/26/2023 ADDENDUM STATUS: COMPLETED rechecked BP x2 and called this greeting card writer. HR WNL this morning. 10:32 (EST) - Alerts generated: blood pressure. Biometric data: blood pressure is 195/95 with a heart rate of 87 Transmit date/time was 12/26/2023 at 10:30 (EST). Source: [employer]; [employer] 10:32 (EST) - Alerts generated: blood pressure. Biometric data: weight is 168.2, -4.2 lbs from previous weight on 12/25/2023, blood pressure is 194/97 with a heart rate of 85 and Transmit date/time was 12/26/2023 at 10:28 (EST). Source: [employer]; [employer] Jackson reports taking medications at approximately 09:45 - 10:00. Jackson states he will sit down and rest for a bit and recheck BP again. /simone/ DENITA QUINTEROS RN HOME TELEHEALTH OIL REFINERY PROCESS TECHNICIAN Signed: 12/26/2023 10:34 12/26/2023 ADDENDUM STATUS: COMPLETED 13:03 (EST) - Alerts generated: blood pressure. Biometric data: blood pressure is 148/81 with a heart rate of 92 Transmit date/time was 12/26/2023 at 11:17 (EST). Source: [employer]; [employer] Pro [employer] /sesence QUINTEROS RN HOME TELEHEALTH OIL REFINERY PROCESS TECHNICIAN Signed: 12/26/2023 13:04 DENITA QUINTEROS [place] [facility]
--- OUTSIDE RECORDS SUMMARY | 2024-08-21 23:27 | XMS_ITS ---
Author Name [place] Address [address] [place] [address] Care Team Providers Care Lens Edger Name Role Phone MARIIA BROUSSARD Primary Care [...] Patient's Relationship to Policy [employer] S[employer]IP[employer] ([id number]) PRESCRIPT ION [facility] Mar 11, 2018 [id number] MADAI DELUNA OTHER RELATIONSHIP [facility] PREFERRED PROVIDER ORGANIZAT ION (PPO) Jun 11, 2011 [id number] [phone] MADAI DELUNA PATIENT HUMANA [facility] (WNR) MEDICARE ADVANTAGE [facility] (WNR) Sep 11, 2022 [id number] [phone] [place] PATIENT MEDICARE (WNR) MEDICARE (M) PART A January 10, 2012 PART A [id number] MIKIE GILL PATIENT MEDICARE (WNR) MEDICARE (M) PART B January 10, 2012 PART B [id number] [phone] GILL DELUNA PATIENT MEDICARE (WNR) MEDICARE (M) PART A January 10, 2012 PART A [id number] GILL DELUNA PATIENT UNICARE PREFERRED PROVIDER ORGANIZAT ION (PPO) [place] RE STATE INDE* * Mar 11, 2015 [id number] MADAI DELUNA SPOUSE [facility] (WNR) MEDICARE ADVANTAGE [facility] (WNR) Mar 11, 2021 [id number] [id number] GILL DELUNA PATIENT [facility] (WNR) MEDICARE ADVANTAGE [facility] (WNR) Sep 11, 2021 [id number] GILL DELUNA PATIENT Selected Encounter This section includes the information on record at [place] for the Encounter. Date/Time Encounter Type Encounter Description Reason Provider Source Mar 12, 2024 12:38 PM POS AIRWAY PRESSURE FILTER ADMIN PAT ACTIVTIES (MASNONCT) ICD-10-CM G47.33 Obstructive sleep apnea (adult) (pediatric) NARCISA BEASLEY [facility] Encounter Template Text not used by [place] Assessments - Encounter Diagnoses This section includes the primary and secondary diagnoses documented for the Encounter. Date/Time Primary/Secondary Diagnosis Diagnosis Name Provider Source Mar 12, 2024 12:41 PM PRIMARY Obstructive sleep apnea (adult) (pediatric) NARCISA BEASLEY [facility] Plan of Treatment: Future Appointments [...] 16, 2024 11:30 AM AMBULATORY - MEDICINE [facility] Jun 11, 2024 08:30 AM [facility] Jun 18, 2024 02:15 PM [facility] Jun 20, 2024 10:45 AM AMBULATORY - [facility]IC[facility] Jul 03, 2024 09:30 AM AMBULATORY - MEDICINE [place] [facility] Jul 16, 2024 09:40 AM AMBULATORY - MEDICINE [place] [facility] Jul 31, 2024 02:00 PM AMBULATORY - MEDICINE [place] [facility] Aug 16, 2024 11:00 AM AMBULATORY - MEDICINE [place] [facility] Aug 22, 2024 01:00 PM AMBULATORY - [place]ICINE [place] [facility] Aug 26, 2024 03:30 PM [facility]UL[place] [place] [facility] Lab Results: +/- 30 days of [...] Range Comment Mar 01, 2024 10:53 AM [facility] HEMOGLOBIN A1C PANEL Specimen Type: BLOOD Comment: [...] Mar 01, 2024 10:14 AM Reporting [facility] [address] [address] Performing Lab: [address] [address] HEMOGLOBIN A1C 7.8 H 4.0-5.6 Mar 01, 2024 10:53 AM [facility] LIPID PANEL FASTING Specimen Type: SERUM No comment entered. Ordering Provider: BRANDON ARMSTRONG Report Released Date/Time: Mar 01, 2024 10:33 AM Reporting Lab: [address] [address] Performing Lab: [facility] [address] [facility] [address] CHOLESTEROL 117 mg/dL TRIGLYCERIDE 94 mg/dL 0-150 LDL calculated 54 mg/dL 0-129 CHOL/HDL 2.7 HDL CHOLESTEROL 44 mg/dL 40-60 Mar 01, 2024 10:53 AM [facility] MICROALBUMIN CREATININE RATIO PANEL Specimen Type: URINE No comment entered. Ordering Provider: BRANDON ARMSTRONG Report Released Date/Time: Mar 01, 2024 10:36 AM Reporting Lab: [facility] [address] [facility] [address] Performing Lab: [address] [address] MICROALBUMIN/C REATININE RATIO 13.2 mg/g 0-29.9 MICROALBUMIN,Q UANTITATIVE 0.7 mg/dL RR UNAVAIL CREATININE URINE 52.95 mg/dL Mar 01, 2024 10:53 AM [facility] BASIC METABOLIC PANEL (non-fasting) Specimen Type: SERUM No comment entered. Ordering Provider: BRANDON ARMSTRONG Report Released Date/Time: Mar 01, 2024 10:14 AM Reporting Lab: [address] [address] Performing Lab: [address] [address] UREA NITROGEN 41 mg/dL H 7-25 GLUCOSE [...] and tobacco- related health factors from the [place] facility where the Encounter took place. Current Smoking Status This section includes the most current smoking, or tobacco-related health factor, from the [place] facility where the Encounter took place. Date/Time Current Smoking Status Comment Facil ity Dec 12, 2022 03:10 PM [facility]-TOBACCO [facility] Encounter Notes: All associated encounter notes This section contains the clinical notes associated to the Encounter. Date/Time Encounter Note(s) Provider Source Mar 12, 2024 12:38 PM RESPIRATORY THERAP Y NOTE: LOCAL TITLE: RESPIRATORY THERAPY NOTE(BLANK) STANDARD TITLE: RESPIRATORY THERAPY NOTE DATE OF NOTE: MAR 12, 2024@12:38 ENTRY DATE: MAR 12, 2024@12:39:02 AUTHOR: NARCISA BEASLEY EXP COSIGNER: URGENCY: STATUS: COMPLETED diagnosed with sleep apnea requested replacement supplies. Equipment will be sent to vet's home address via [employer] Compliance Report Usage 02/11/2024 - 03/11/2024 Usage days 29/30 days (97%) >= 4 hours 18 days (60%) < 4 hours 11 days (37%) Usage hours 147 hours 56 minutes Average usage (total days) 4 hours 56 minutes Average usage (days used) 5 hours 6 minutes Median usage (days used) 5 hours 0 minutes Total used hours (value since last reset - 03/11/2024) 4,275 hours [employer] Serial number [id number] Mode Spont IPAP 12 cmH2O EPAP 7 cmH2O Easy-Breathe On Therapy Leaks - L/min Median: 23.7 95th percentile: 48.0 Maximum: 52.1 Events per hour AI: 2.4 HI: 0.3 AHI: 2.7 Apnea Index Central: 0.9 Obstructive: 0.7 Unknown: 0.8 /simone/ NARCISA BEASLEY RESPIRATORY THERAPIST Signed: 03/12/2024 12:41 NARCISA BEASLEY [place] [facility]
--- OUTSIDE RECORDS SUMMARY | 2024-08-21 23:27 | XMS_ITS | Encounter Summary ---
Author Name [place] Address [address] [place] [address] Care Team Providers Care Customer Care Specialist Name Role Phone MARIIA BROUSSARD Primary Care [...] Patient's Relationship to Policy Mancera EXPRESS SCRIPTS ([id number]) PRESCRIPT ION [facility] Mar 11, 2018 [id number] MADAI DELUNA OTHER RELATIONSHIP [facility] PREFERRED PROVIDER ORGANIZAT ION (PPO) Jun 11, 2011 [id number] [phone] MADAI DELUNA PATIENT HUMANA [facility] (WNR) MEDICARE ADVANTAGE [facility] (WNR) Sep 11, 2022 [id number] [phone] GILL DELUNA PATIENT MEDICARE (WNR) MEDICARE (M) PART A January 10, 2012 PART A [id number] [phone] GILL DELUNA PATIENT MEDICARE (WNR) MEDICARE (M) PART B January 10, 2012 PART B [id number] [phone] GILL DELUNA PATIENT MEDICARE (WNR) MEDICARE (M) PART A January 10, 2012 PART A [id number] GILL DELUNA PATIENT UNICARE PREFERRED PROVIDER ORGANIZAT ION (PPO) [place] RE STATE INDE* * Mar 11, 2015 [id number] MADAI DELUNA SPOUSE [facility] (WNR) MEDICARE ADVANTAGE [facility] (WNR) Mar 11, 2021 [id number] GILL DELUNA PATIENT [facility] (WNR) MEDICARE ADVANTAGE [facility] (WNR) Sep 11, 2021 [id number] [phone] GILL DELUNA PATIENT Selected Encounter This section includes the information on record at [place] for the Encounter. Date/Time Encounter Type Encounter Description Reason Provider Source Mar 28, 2024 10:09 AM PRO PHONE CALL 5-10 MIN TELEPHONE/MEDICIN E ICD-10-CM I11.9 Hypertensive heart disease without heart failure ALCIRA LAYNE [place] Encounter Template Text not used by [place] Assessments - Encounter Diagnoses This section includes the primary and secondary diagnoses documented for the Encounter. Date/Time Primary/Secondary Diagnosis Diagnosis Name Provider Source Mar 28, 2024 10:09 AM PRIMARY Hypertensive heart disease without heart failure [facility] Plan of Treatment: Future Appointments (+ 6 months) and Future Tests (+/- 45 days) The Plan of Treatment section includes future care activities for the patient from all [place] treatmentfacilities. This section includes future appointments and future orders which are active, pending or scheduled. Future Appointments This section includes appointments that were scheduled to occur 6 months from the date of the Encounter, up to a maximum of 20 appointments. The data comes from all [place] treatment facilities. Appointment Date/Time Appointment Type Appointme nt Facility Name May 16, 2024 11:30 AM AMBULATORY - MEDICINE [facility] [place] [facility] Jun 11, 2024 08:30 AM AMBULATORY - MEDICINE [place] Jun 18, 2024 02:15 PM [facility] Jun 20, 2024 10:45 AM AMBULATORY - MEDICINE [place] Jul 03, 2024 09:30 AM AMBULATORY - MEDICINE [place] [facility] Jul 16, 2024 09:40 AM AMBULATORY - MEDICINE [facility] Jul 31, 2024 02:00 PM AMBULATORY - MEDICINE [facility] Aug 16, 2024 11:00 AM AMBULATORY - MEDICINE [facility] NTRL W[facility] Aug 22, 2024 01:00 PM AMBUL[facility] - MED[facility]INE [facility] Aug 26, 2024 03:30 PM [facility] Active, Pending, and Scheduled Orders This section includes a listing of several types of active, pending, and scheduled orders, including clinic medications orders, diagnostic test orders, procedure orders and consult orders; where the start date of the order is 45 days before the date of the Encounter or 45 days after the date of theEncounter. The data comes from all [place] treatment facilities. Test Date/Time Test Type Test Details Facility Name May 03, 2024 03:01 PM Consult Order VIS[facility] OUT[facility] IFC CT Cons Reeling Operator's Choice [place] May 09, 2024 10:35 AM Consult Order COMM[facility]ITY [facility]-CARDIOLOGY [place] Operator's [facility] Lab Results: +/- 30 days of the encounter This section includes the Chemistry and Hematology Lab Results on record with [place] for the patient. Radiology Reports and Pathology Reports are provided separately, in subsequent sections. Lab Results This section contains the Chemistry/Hematology Results that were resulted 30 days before or 30 daysafter the date of the Encounter. Date/Time Source Result Type Result - Unit Interpretation Reference Range Comment Mar 01, 2024 10:53 AM [facility] HEMOGLOBIN A1C PANEL Specimen Type: BLOOD [...] Mar 01, 2024 10:14 AM Reporting Lab: [address] [address] Performing Lab: [facility] [address] [facility] [address] HEMOGLOBIN A1C 7.8 H 4.0-5.6 Mar 01, 2024 10:53 AM [facility] BASIC METABOLIC PANEL (non-fasting) Specimen Type: SERUM No comment entered. Ordering Provider: BRANDON ARMSTRONG Report Released Date/Time: Mar 01, 2024 10:14 AM Reporting Lab: [facility] [place] [facility] [address] [facility] [address] Performing Lab: [facility]ENTERUSE[address] [address] UREA NITROGEN 41 mg/dL H 7-25 GLUCOSE 224 mg/dL H 65-100 SODIUM 132 mmol/L L 135-145 POTASSIUM 3.9 mmol/L 3.5-5.0 CHLORIDE 100 mmol/L 100-110 CO2 25 meq/L 20-30 CREATININE, Serum 1.02 mg/dL 0.50-1.40 eGFR(CKD-EPI 2020) 76 mL/min >60 Mar 01, 2024 10:53 AM [facility] LIPID PANEL FASTING Specimen Type: SERUM No comment entered. Ordering Provider: BRANDON ARMSTRONG Report Released Date/Time: Mar 01, 2024 10:33 AM Reporting Lab: [facility] [address] [facility] [address] Performing Lab: [facility]ENTERUSE[address] [address] CHOLESTEROL 117 mg/dL TRIGLYCERIDE 94 mg/dL 0-150 LDL calculated 54 mg/dL 0-129 CHOL/HDL 2.7 HDL CHOLESTEROL 44 mg/dL 40-60 Mar 01, 2024 10:53 AM [facility]USER[facility] MICROALBUMIN CREATININE RATIO PANEL Specimen Type: URINE No comment entered. Ordering Provider: BRANDON ARMSTRONG Report Released Date/Time: Mar 01, 2024 10:36 AM Reporting Lab: [facility] CENTERUSETS [address] [address] Performing Lab: [facility] [place] [address] [place] [address] MICROALBUMIN/C REATININE RATIO 13.2 mg/g 0-29.9 MICROALBUMIN,Q UANTITATIVE 0.7 mg/dL RR UNAVAIL CREATININE URINE 52.95 mg/dL Social History: Smoking Status (Most current) and Tobacco Use (All prior to encounter date) This section includes the most current, and the historical, smoking and tobacco- related health factors from the [place] facility where the Encounter took place. Current Smoking Status This section includes the most current smoking, or tobacco-related health factor, from the [place] facility where the Encounter took place. Date/Time Current Smoking Status Comment Facil ity Dec 12, 2022 03:10 PM VA-TOBACCO NEVER USED [place] CNTRL [place] [facility] Encounter Notes: All associated encounter notes This section contains the clinical notes associated to the Encounter. Date/Time Encounter Note(s) Provider Source Mar 28, 2024 10:09 AM CARE COORDINATION HOME TELEHEALTH FOLLOW-UP NOTE: LOCAL TITLE: HT INTERVENTION NOTE STANDARD TITLE: CARE COORDINATION HOME TELEHEALTH FOLLOW-UP NOTE DATE OF NOTE: MAR 28, 2024@10:09 ENTRY DATE: MAR 28, 2024@10:09:19 AUTHOR: ALCIRA LAYNE COSIGNER: URGENCY: STATUS: COMPLETED is actively enrolled in the Home Telehealth program. Review of data shows the following out of range responses: GILL DELUNA (-[id number]) Vital Sign for: 02/28/2024 - 03/28/2024 (All times are EST; All weights are lbs) Primary DMP: VHA-HTN Comorbid(s): Summary Weight Sys BP Barnett BP HR Pain High 171.6 161 113 106 Low 165.4 92 50 37 Average 167.9 136 72 72 Date Time Wt Time Sys Barnett Time HR Time Pain 03/26/2024 23:04 169.2 - - 03/25/2024 - [...] 14:39 166.8 14:38 161/81 14:38 69 Source: [employer]; [employer] Assessment: Spoke with ( identified by full name and date of ) to return call, review data and assess for any symptoms, changes, questions or concerns. reports he is currently at grocery store picking up a few things and feels okay. reports he had prostate surgery which went well, catheter was just removed, he reports he is voiding well, has some discomfort when voiding but it goes away quickly after voiding. Denies any hematuria. He inquired about antibiotic. Informed him that review of record indicates prescription was received from Dr. Mccurdy, filled and mailed today. 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 He states he will start it as soon as he receives it. reports he stopped all medications prior to procedure, has resumed medications but is no longer taking finasteride or bethanecol. He has not utilized HT equipment in the past two days but states he has been assessing his blood pressure using automatic blood pressure machine and states blood pressure has been good and heart rate has been in the 80's, will resume use of HT equipment as soon as possible. He denies any other signs/symptoms or complaints at this time. Intervention(s)/Plan: Reviewed signs/symptoms of infection, treatment, when and where to seek help. Follow post op instructions provided by Dr. Lew. Follow with PCP as recommended. Encouraged hydration with water throughout the day. Rest as needed, pace activities. Resume use of HT equipment and transmit all data to for review/monitoring. Instructed to take all medications as ordered. Do not abruptly stop taking medications unless advised by provider. Do not self-adjust dosage or frequency of medications without consulting with provider. Contact provider if you believe you are experiencing any side effects or have questions or concerns about your medication. verbalized understanding of education and denied questions or concerns. Forwarding to provider for review. TYPE OF ENCOUNTER: Telephone Length of call: 5-10 minutes [employer] COACHING SKILL[employer] Coaching or Motivational Interviewing skills used. /simone/ KAVITHA Albert, RN [facility]-Home Telehealth Process Engineering Manager Signed: 03/28/2024 10:22 Receipt Acknowledged By: 03/29/2024 11:51 /es/ MARIIA BROUSSARD MD PHYSICIAN 03/29/2024 16:25 /es/ ZAID ODONNELL RN REGISTERED NURSE ALCIRA LAYNE [place] CN[place] W[place] [facility]
--- OUTSIDE RECORDS SUMMARY | 2024-08-21 23:27 | XMS_ITS | Encounter Summary ---
Author Name [place] Address [address] [place] [address] Care Team Providers Care Sheet Fed Printer Name Role Phone MARIIA BROUSSARD Primary Care [...] Patient's Relationship to Policy Mancera EXPRESS SCRIPTS ([id number]) PRESCRIPT ION [facility] Mar 11, 2018 [id number] MADAI DELUNA OTHER RELATIONSHIP [facility] PREFERRED PROVIDER ORGANIZAT ION (PPO) Jun 11, 2011 [id number] MADAI DELUNA PATIENT HUMANA [facility] (WNR) MEDICARE ADVANTAGE [facility] (WNR) Sep 11, 2022 [id number] [phone] GILL DELUNA PATIENT MEDICARE (WNR) MEDICARE (M) PART A January 10, 2012 PART A [id number] MIKIE GILL PATIENT MEDICARE (WNR) MEDICARE (M) PART B January 10, 2012 PART B [id number] [phone] GILL DELUNA PATIENT MEDICARE (WNR) MEDICARE (M) PART A January 10, 2012 PART A [id number] GILL DELUNA PATIENT UNICARE PREFERRED PROVIDER ORGANIZAT ION (PPO) [place] RE STATE INDE* * Mar 11, 2015 [id number] MADAI DELUNA SPOUSE [facility] (WNR) MEDICARE ADVANTAGE [facility] (WNR) Mar 11, 2021 [id number] GILL DELUNA PATIENT WELLCARE [facility] (WNR) MEDICARE ADVANTAGE [facility] (WNR) Sep 11, 2021 [id number] GILL DELUNA PATIENT Selected Encounter This section includes the information on record at [place] for the Encounter. Date/Time Encounter Type Encounter Description Reason Provider Source February 06, 2024 08:16 AM Outpatient Encounter HT NON-VIDEO MONITORING ICD-10-CM I11.9 Hypertensive heart disease without heart failure ALCIRA LAYNE Belle Encounter Template Text not used by [place] Assessments - Encounter Diagnoses This section includes the primary and secondary diagnoses documented for the Encounter. Date/Time Primary/Secondary Diagnosis Diagnosis Name Provider Source February 06, 2024 08:22 AM PRIMARY Hypertensive heart disease without heart failure ALCIRA LAYNE [facility] Plan of Treatment: Future Appointments (+ 6 months) and Future Tests (+/- 45 days) The Plan of Treatment section includes future care activities for the patient from all [place] treatmentfacilities. This section includes future appointments and future orders which are active, pending or scheduled. Future Appointments This section includes appointments that were scheduled to occur 6 months from the date of the Encounter, up to a maximum of 20 appointments. The data comes from all [place] treatment facilities. Appointment Date/Time Appointment Type Appointme nt Facility Name Mar 01, 2024 10:00 AM AMBULAT[facility] [place] [facility] May 16, 2024 11:30 AM AMBULATORY - MEDICINE [place] [facility] Jun 11, 2024 08:30 AM [facility] Jun 18, 2024 02:15 PM [facility] Jun 20, 2024 10:45 AM AMBULATORY - MEDICINE [place] Jul 03, 2024 09:30 AM AMBULATORY - MEDICINE [place] [facility] Jul 16, 2024 09:40 AM AMBULATORY - MEDICINE [place] [facility] Jul 31, 2024 02:00 PM AMBULATORY - MEDICINE [facility] N[facility]L [facility] Lab Results: +/- 30 days of the encounter This section includes the Chemistry and Hematology Lab Results on record with [place] for the patient. Radiology Reports and Pathology Reports are provided separately, in subsequent sections. Lab Results This section contains the Chemistry/Hematology Results that were resulted 30 days before or 30 daysafter the date of the Encounter. Date/Time Source Result Type Result - Unit Interpretation Reference Range Comment Mar 01, 2024 10:53 AM [facility] HEMOGLOBIN A1C PANEL Specimen Type: BLOOD [...] Mar 01, 2024 10:14 AM Reporting Lab: [facility] [address] [facility] [address] Performing Lab: [address] [address] HEMOGLOBIN A1C 7.8 H 4.0-5.6 Mar 01, 2024 10:53 AM [facility] MICROALBUMIN CREATININE RATIO PANEL Specimen Type: URINE No comment entered. Ordering Provider: BRANDON ARMSTRONG Report Released Date/Time: Mar 01, 2024 10:36 AM Reporting Lab: [facility] [address] [facility] [address] Performing Lab: [address] [address] MICROALBUMIN/C REATININE RATIO 13.2 mg/g 0-29.9 MICROALBUMIN,Q UANTITATIVE 0.7 mg/dL RR UNAVAIL CREATININE URINE 52.95 mg/dL Mar 01, 2024 10:53 AM [facility] LIPID PANEL FASTING Specimen Type: SERUM No comment entered. Ordering Provider: BRANDON ARMSTRONG Report Released Date/Time: Mar 01, 2024 10:33 AM Reporting Lab: [address] [address] Performing Lab: [address] [address] CHOLESTEROL 117 mg/dL TRIGLYCERIDE 94 mg/dL 0-150 LDL calculated 54 mg/dL 0-129 CHOL/HDL 2.7 HDL CHOLESTEROL 44 mg/dL 40-60 Mar 01, 2024 10:53 AM [facility] BASIC METABOLIC PANEL (non-fasting) Specimen Type: SERUM No comment entered. Ordering Provider: BRANDON ARMSTRONG Report Released Date/Time: Mar 01, 2024 10:14 AM Reporting Lab: [address] [address] Performing Lab: [address] [address] UREA NITROGEN 41 mg/dL H 7-25 GLUCOSE [...] and tobacco- related health factors from the [place] facility where the Encounter took place. Current Smoking Status This section includes the most current smoking, or tobacco-related health factor, from the [place] facility where the Encounter took place. Date/Time Current Smoking Status Comment Nadine jose Dec 12, 2022 03:10 PM VA-TOBACCO NEVER USED [facility] Encounter Notes: All associated encounter notes This section contains the clinical notes associated to the Encounter. Date/Time Encounter Note(s) Provider Source February 06, 2024 08:19 AM CARE COORDINATION HOME TELEHEALTH SUMMARIZATION NOTE: LOCAL TITLE: HT MONTHLY MONITOR NOTE STANDARD TITLE: CARE COORDINATION HOME TELEHEALTH SUMMARIZATION DATE OF NOTE: FEBRUARY 06, 2024@08:19 ENTRY DATE: FEBRUARY 06, 2024@08:19:23 AUTHOR: ALCIRA LAYNE EXP COSIGNER: URGENCY: STATUS: COMPLETED The [place] is enrolled in the Home Telehealth (HT) program and continues to be monitored via HT technology. The data sent by the is reviewed and analyzed by the HT staff, who provide ongoing case management and health education while communicating and collaborating with the health care team as appropriate. This note covers a total of 30 minutes for the month monitored. Month monitored: January 2024 Dx: Hypertension /es/ KAVITHA Albert, RN RPM-Home Telehealth Sand Blaster Signed: 02/06/2024 08:22 [facility]AYNE [place] [facility]
--- OUTSIDE RECORDS SUMMARY | 2024-08-21 23:27 | XMS_ITS ---
Author Name [place] Address [address] [place] [address] Care Team Providers Care Supervisor Sanding Name Role Phone MARIIA BROUSSARD Primary Care [...] Patient's Relationship to Policy [employer] EXPRESS SCRIPTS ([id number]) PRESCRIPT ION [facility] Mar 11, 2018 [id number] MADAI DELUNA OTHER RELATIONSHIP [facility] PREFERRED PROVIDER ORGANIZAT ION (PPO) Jun 11, 2011 [id number] [phone] MADAI DELUNA PATIENT HUMANA [facility] (WNR) MEDICARE ADVANTAGE [facility] (WNR) Sep 11, 2022 [id number] [phone] GILL DELUNA PATIENT MEDICARE (WNR) MEDICARE (M) PART A January 10, 2012 PART A [id number] MIKIE GILL PATIENT MEDICARE (WNR) MEDICARE (M) PART B January 10, 2012 PART B [id number] [phone] GILL DELUNA PATIENT MEDICARE (WNR) MEDICARE (M) PART A January 10, 2012 PART A [id number] GILL DELUNA PATIENT UNICARE PREFERRED PROVIDER ORGANIZAT ION (PPO) [place] RE STATE INDE* * Mar 11, 2015 [id number] MADAI DELUNA [facility] (WNR) MEDICARE ADVANTAGE [facility] (WNR) Mar 11, 2021 [id number] [phone] GILL DELUNA PATIENT [facility]ARE [facility] (WNR) MEDICARE ADVANTAGE [facility] (WNR) Sep 11, 2021 [id number] GILL DELUNA PATIENT Selected Encounter This section includes the information on record at [place] for the Encounter. Date/Time Encounter Type Encounter Description Reason Provider Source Jan 08, 2024 10:38 AM Outpatient Encounter HT NON-VIDEO MONITORING ICD-10-CM I11.9 Hypertensive heart disease without heart failure ALCIRA LAYNE [place] Encounter Template Text not used by [place] Assessments - Encounter Diagnoses This section includes the primary and secondary diagnoses documented for the Encounter. Date/Time Primary/Secondary Diagnosis Diagnosis Name Provider Source Jan 08, 2024 10:43 AM PRIMARY Hypertensive heart disease without heart failure ALCIRA LAYNE [facility] Plan of Treatment: Future Appointments (+ 6 [...] 15, 2024 01:40 PM AMBULATORY - MEDICINE [place] [facility] January 22, 2024 08:30 AM [facility] Mar 01, 2024 10:00 AM AMBULATORY - MEDICINE [place] [facility] May 16, 2024 11:30 AM AMBULATORY - MEDICINE [place] [facility] Jun 11, 2024 08:30 AM AMBULATORY - MEDICINE [place] Jun 18, 2024 02:15 PM AMBULAT[facility] Jun 20, 2024 10:45 AM AMBULATORY - MEDICINE [facility] Jul 03, 2024 09:30 AM AMBULATORY - MEDICINE [facility] Social History: Smoking Status (Most [...] 12, 2022 03:10 PM VA-TOBACCO NEVER USED [facility] Encounter Notes: All associated encounter notes This section contains the clinical notes associated to the Encounter. Date/Time Encounter Note(s) Provider Source Jan 08, 2024 10:38 AM CARE COORDINATION HOME TELEHEALTH SUMMARIZATION NOTE: LOCAL TITLE: HT MONTHLY MONITOR NOTE STANDARD TITLE: CARE COORDINATION HOME TELEHEALTH SUMMARIZATION DATE OF NOTE: JAN 08, 2024@10:38 ENTRY DATE: JAN 08, 2024@10:38:47 AUTHOR: ALCIRA LAYNE EXP COSIGNER: URGENCY: STATUS: COMPLETED The [place] is enrolled in the Home Telehealth (HT) program and continues to be monitored via HT technology. The data sent by the is reviewed and analyzed by the staff, who provide ongoing case management and health education while communicating and collaborating with the health care team as appropriate. This note covers a total of 30 minutes for the month monitored. Month monitored: December 2023 Dx: Hypertension /es/ LLOYD AlbertN, RN RPM-Home Telehealth Ceo Signed: 01/08/2024 10:43 ALCIRA LAYNE [facility]
--- OUTSIDE RECORDS SUMMARY | 2024-08-21 23:27 | XMS_ITS | Encounter Summary ---
Author Name [facility] [place] Organization [place] Address [address] [place] [address] Care Team Providers Care Cheese Grader Name Role Phone MARIIA BROUSSARD Primary Care [...] Patient's Relationship to Policy [employer] ([id number]) PRESCRIPT ION [facility] Mar 11, 2018 [id number] MADAI DELUNA OTHER RELATIONSHIP [facility] PREFERRED PROVIDER ORGANIZAT ION (PPO) Jun 11, 2011 [id number] MADAI DELUNA PATIENT HUMANA [facility] (WNR) MEDICARE ADVANTAGE [facility] (WNR) Sep 11, 2022 [id number] [phone] [place] PATIENT MEDICARE (WNR) MEDICARE (M) PART A January 10, 2012 PART A [id number] [phone] MI[place]IE GILL PATIENT MEDICARE (WNR) MEDICARE (M) PART B January 10, 2012 PART B [id number] GILL DELUNA PATIENT MEDICARE (WNR) MEDICARE (M) PART A January 10, 2012 PART A [id number] [phone] GILL DELUNA PATIENT UNICARE PREFERRED PROVIDER ORGANIZAT ION (PPO) [place]RI[place]AN RE STATE INDE* * Mar 11, 2015 [id number] MADAI DELUNA [facility] (WNR) MEDICARE ADVANTAGE [facility] (WNR) Mar 11, 2021 [id number] GILL DELUNA PATIENT [employer]LLCARE [facility] (WNR) MEDICARE ADVANTAGE [facility] (WNR) Sep 11, 2021 [id number] [phone] GILL DELUNA PATIENT Selected Encounter This section includes the information on record at [place] for the Encounter. Date/Time Encounter Type Encounter Description Reason Pro vider Source Dec 28, 2023 02:53 PM Outpatient Encounter TELEPHONE PRIMARY CARE IHE Encounter Template Text not used by PA Plan of Treatment: Future Appointments (+ 6 months) and Future Tests (+/- 45 days) The Plan of Treatment section includes future care activities for the patient from all [place] treatmentfacilities. This section includes future appointments and future orders which are active, pending or scheduled. Future Appointments This section includes appointments that were scheduled to occur 6 months from the date of the Encounter, up to a maximum of 20 appointments. The data comes from all [place] treatment facilities. Appointment Date/Time Appointment Type Appointme nt Facility Name January 15, 2024 01:40 PM [facility]UL[facility] [place] January 22, 2024 08:30 AM [facility] Mar 01, 2024 10:00 AM [facility] May 16, 2024 11:30 AM [facility] Jun 11, 2024 08:30 AM AM[facility]ULATORY - [facility]ICINE [facility] Jun 18, 2024 02:15 PM [facility]ULATORY - [facility]ICINE [facility] Jun 20, 2024 10:45 AM [facility]ULATORY - MEDICINE [facility] Social History: Smoking Status (Most current) and Tobacco Use (All prior to encounter date) This section includes the most current, and the historical, smoking and tobacco- related health factors from the [place] facility where the Encounter took place. Current Smoking Status This section includes the most current smoking, or tobacco-related health factor, from the [place] facility where the Encounter took place. Date/Time Current Smoking Status Comment Nadine damon Dec 12, 2022 03:10 PM [facility]-TOBACCO [facility] USED [facility] [place] [facility] Encounter Notes: All associated encounter notes This section contains the clinical notes associated to the Encounter. Date/Time Encounter Note(s) Provider Source Dec 28, 2023 02:54 PM CARE COORDINATION HOME TELEHEALTH NOTE: LOCAL TITLE: HT NOTE STANDARD TITLE: CARE COORDINATION HOME TELEHEALTH NOTE DATE OF NOTE: DEC 28, 2023@14:54 ENTRY DATE: DEC 28, 2023@14:54:05 AUTHOR: ZEINA WILD EXP COSIGNER: URGENCY: STATUS: COMPLETED Willard is actively enrolled in the Home Telehealth program. Review of data shows the following out of range responses: GILL DELUNA (-[id number]) Vital Sign for: 11/29/2023 - 12/28/2023 (All times are EST; All weights are lbs) Primary DMP: VHA-HTN Comorbid(s): Summary Weight Sys BP Barnett BP HR Pain High 172.4 195 97 108 Low 164.6 118 63 41 Average 168.5 153 80 83 Date Time Wt Time Sys Barnett Time HR Time Pain 12/26/2023 22:08 170.4 22:08 163/95 22:08 103 12/26/2023 - 11:15 148/81 11:15 92 12/26/2023 - 10:29 195/95 10:29 87 12/26/2023 10:26 168.2 10:26 194/97 10:26 85 12/25/2023 22:32 172.4 22:31 160/79 22:31 46 [...] 12/03/2023 15:41 164.6 15:41 178/72 15:41 41 Source: [employer]; [employer] Attempted call to to review elevated HR of 103 with recent low HR recording of 46 on 12/24. No answer. Left message requesting a return call. HT will continue to monitor and contact as indicated. Forward updates to PACT team for review. /simone/ ZEINA TREVINO MSN, RN, CNL [facility] TELE[facility] Signed: 12/28/2023 14:55 Receipt Acknowledged By: 01/01/2024 08:32 /es/ MARIIA BROUSSARD MD PHYSICIAN [facility]
--- OUTSIDE RECORDS SUMMARY | 2024-08-21 23:27 | XMS_ITS | Encounter Summary ---
Author Name [facility] [place] Organization [place] Address [address] [place] [address] Care Team Providers Care Launch Commander [employer] Name Role Phone MARIIA BROUSSARD Primary Care [...] Patient's Relationship to Policy [employer] ([id number]) PRESCRIPT ION [facility] Mar 11, 2018 [id number] MADAI DELUNA OTHER RELATIONSHIP [facility] PREFERRED PROVIDER ORGANIZAT ION (PPO) Jun 11, 2011 [id number] MADAI DELUNA PATIENT HUMANA [facility] (WNR) MEDICARE ADVANTAGE [facility] (WNR) Sep 11, 2022 [id number] [phone] [place] PATIENT MEDICARE (WNR) MEDICARE (M) PART A January 10, 2012 PART A [id number] [phone] MI[place]IE GILL PATIENT MEDICARE (WNR) MEDICARE (M) PART B January 10, 2012 PART B [id number] GILL DELUNA PATIENT MEDICARE (WNR) MEDICARE (M) PART A January 10, 2012 PART A [id number] [phone] GILL DELUNA PATIENT UNICARE PREFERRED PROVIDER ORGANIZAT ION (PPO) [place] RE STATE INDE* * Mar 11, 2015 [id number] MADAI DELUNA [facility] (WNR) MEDICARE ADVANTAGE [facility] (WNR) Mar 11, 2021 [id number] GILL DELUNA PATIENT [facility]ARE [facility] (WNR) MEDICARE ADVANTAGE [facility] (WNR) Sep 11, 2021 [id number] GILL DELUNA PATIENT Selected Encounter This section includes the information on record at [place] for the Encounter. Date/Time Encounter Type Encounter Description Reason Pro vider Source Mar 27, 2024 02:10 PM Outpatient Encounter PRIMARY CARE/MEDICINE IHE Encounter Template Text not used by [place] Plan of Treatment: Future Appointments (+ 6 months) and Future Tests (+/- 45 days) The Plan of Treatment section includes future care activities for the patient from all [place] treatmentfacilities. This section includes future appointments and future orders which are active, pending or scheduled. Future Appointments This section includes appointments that were scheduled to occur 6 months from the date of the Encounter, up to a maximum of 20 appointments. The data comes from all [place] treatment facilities. Appointment Date/Time Appointment Type Appointme nt Facility Name May 16, 2024 11:30 AM AMBULATORY - [facility] [place] [facility] Jun 11, 2024 08:30 AM [facility]ORY - [facility]ICINE [facility] Jun 18, 2024 02:15 PM AM[facility]ULATORY - MEDICINE [facility] Jun 20, 2024 10:45 AM AMBULATORY - MEDICINE [facility] Jul 03, 2024 09:30 AM AMBULATORY - [facility] [place] [facility] Jul 16, 2024 09:40 AM AMBULATORY - [facility]IC[facility] [place] [facility] Jul 31, 2024 02:00 PM AMBULATORY - MEDIC[facility] [place] [facility] Aug 16, 2024 11:00 AM AM[facility]ULATORY - [facility] [place] [place] [facility] Aug 22, 2024 01:00 PM [facility] Aug 26, 2024 03:30 PM [facility] Active, Pending, and Scheduled Orders This section includes a listing of several types of active, pending, and scheduled orders, including clinic medications orders, diagnostic test orders, procedure orders and consult orders; where the start date of the order is 45 days before the date of the Encounter or 45 days after the date of theEncounter. The data comes from all [place] treatment facilities. Test Date/Time Test Type Test Details Facility Name May 03, 2024 03:01 PM Consult Order VIS[facility] OUT[facility] IFC CT [facility] [place] May 09, 2024 10:35 AM Consult Order COMMUNITY [facility]-CARDIOLOGY [facility] Lab Results: +/- 30 days of the encounter This section includes the Chemistry and Hematology Lab Results on record with [facility] for the patient. Radiology Reports and Pathology Reports are provided separately, in subsequent sections. Lab Results This section contains the Chemistry/Hematology Results that were resulted 30 days before or 30 daysafter the date of the Encounter. Date/Time Source Result Type Result - Unit Interpretation Reference Range Comment Mar 01, 2024 10:53 AM [facility] HEMOGLOBIN A1C PANEL Specimen Type: BLOOD [...] Mar 01, 2024 10:14 AM Reporting Lab: [address] [address] Performing Lab: [address] [address] HEMOGLOBIN A1C 7.8 H 4.0-5.6 Mar 01, 2024 10:53 AM [facility] MICROALBUMIN CREATININE RATIO PANEL Specimen Type: URINE No comment entered. Ordering Provider: BRANDON ARMSTRONG Report Released Date/Time: Mar 01, 2024 10:36 AM Reporting Lab: [facility] [address] [facility] [address] Performing Lab: [address] [address] MICROALBUMIN/C REATININE RATIO 13.2 mg/g 0-29.9 MICROALBUMIN,Q UANTITATIVE 0.7 mg/dL RR UNAVAIL CREATININE URINE 52.95 mg/dL Mar 01, 2024 10:53 AM [facility] LIPID PANEL FASTING Specimen Type: SERUM No comment entered. Ordering Provider: BRANDON ARMSTRONG Report Released Date/Time: Mar 01, 2024 10:33 AM Reporting Lab: [address] [address] Performing Lab: [address] [address] CHOLESTEROL 117 mg/dL TRIGLYCERIDE 94 mg/dL 0-150 LDL calculated 54 mg/dL 0-129 CHOL/HDL 2.7 HDL CHOLESTEROL 44 mg/dL 40-60 Mar 01, 2024 10:53 AM [facility] BASIC METABOLIC PANEL (non-fasting) Specimen Type: SERUM No comment entered. Ordering Provider: BRANDON ARMSTRONG Report Released Date/Time: Mar 01, 2024 10:14 AM Reporting Lab: [address] [address] Performing Lab: [address] [address] UREA NITROGEN 41 mg/dL H 7-25 GLUCOSE [...] and tobacco- related health factors from the [place] facility where the Encounter took place. Current Smoking Status This section includes the most current smoking, or tobacco-related health factor, from the [place] facility where the Encounter took place. Date/Time Current Smoking Status Comment Facil ity Dec 12, 2022 03:10 PM VA-TOBACCO NEVER USED [facility] Encounter Notes: All associated encounter notes This section contains the clinical notes associated to the Encounter. Date/Time Encounter Note(s) Provider Source Mar 27, 2024 02:10 PM PRIMARY CARE SECUR E MESSAGING: LOCAL TITLE: PRIMARY CARE SECURE MESSAGING STANDARD TITLE: PRIMARY CARE SECURE MESSAGING DATE OF NOTE: MAR 27, 2024@14:10 ENTRY DATE: MAR 27, 2024@15:10:54 AUTHOR: LORETA SINGLETARY EXP COSIGNER: URGENCY: STATUS: COMPLETED PRIMARY CARE SECURE MESSAGING Has ADDENDA ------Original Message ----- Sent: 03/27/2024 02:57 PM ET From: GILL DELUNA To: [facility] Subject: Medication:resume meds Hi I sent email yesterday in reference to meds continuation after surgery the surgery was completion 7-15 so is it ok to resume meds thank you ed /es/ LORETA DAMICO Signed: 03/27/2024 15:10 Receipt Acknowledged By: 03/27/2024 16:05 /simone/ ABDI ALMARAZ LPN LPN 03/27/2024 16:25 /simone/ ZAID ODONNELL RN REGISTERED NURSE 03/27/2024 ADDENDUM STATUS: COMPLETED See previous note addendum /simone/ ABDI ALMARAZ LPN LPN Signed: 03/27/2024 16:05 LORETA SINGLETARY [facility]
--- OUTSIDE RECORDS SUMMARY | 2024-08-21 23:27 | XMS_ITS ---
Author Name [facility] [place] [facility] [place] Address [address] [place] [address] Care Team Providers Care Refrigeration Mechanic Helper Name Role Phone MARIIA RODRIGEZ Primary Care Provide r Unavailable Insurance Providers: [...] Patient's Relationship to Policy [employer] ([id number]) [facility] Mar 11, 2018 [id number] [phone] MADAI DELUNA OTHER RELATIONSHIP [facility] PREFERRED PROVIDER ORGANIZAT ION (PPO) Jun 11, 2011 [id number] MADAI DELUNA PATIENT [employer] [facility] (WNR) MEDICARE ADVANTAGE [facility] (WNR) Sep 11, 2022 [id number] [phone] GILL DELUNA PATIENT MEDICARE (WNR) MEDICARE (M) PART A January 10, 2012 PART A [id number] [phone] GILL DELUNA PATIENT MEDICARE (WNR) MEDICARE (M) PART B January 10, 2012 PART B [id number] GILL DELUNA PATIENT MEDICARE (WNR) MEDICARE (M) PART A January 10, 2012 PART A [id number] [phone] GILL DELUNA PATIENT UNICARE PREFERRED PROVIDER ORGANIZAT ION (PPO) CRI[place]AN RE STATE THUYE* * Mar 11, 2015 [id number] MADAI DELUNA [facility] (WNR) MEDICARE ADVANTAGE [facility] (WNR) Mar 11, 2021 [id number] GILL DELUNA PATIENT [employer] [facility] (WNR) MEDICARE ADVANTAGE [facility] (WNR) Sep 11, 2021 [id number] [phone] MIKIE GILL PATIENT Selected Encounter This section includes the information on record at [place] for the Encounter. Date/Time Encounter Type Encounter Description Reason Pro vider Source Mar 08, 2024 12:03 PM Outpatient Encounter TELEPHONE PRIMARY CARE IHE Encounter Template Text not used by [place] Plan of Treatment: Future Appointments (+ 6 months) and Future Tests (+/- 45 days) The Plan of Treatment section includes future care activities for the patient from all [place] treatmentfacilities. This section includes future appointments and future orders which are active, pending or scheduled. Future Appointments This section includes appointments that were scheduled to occur 6 months from the date of the Encounter, up to a maximum of 20 appointments. The data comes from all [place] treatment facilities. Appointment Date/Time Appointment Type Appointme nt Facility Name May 16, 2024 11:30 AM AMBULATORY - MEDICINE [place] [facility] [place] [facility] Jun 11, 2024 08:30 AM [facility]ICINE [facility] Jun 18, 2024 02:15 PM [facility]ORY - [facility]ICINE [facility] Jun 20, 2024 10:45 AM [facility] Jul 03, 2024 09:30 AM AMBULATORY - MEDICINE [place] [facility] [place] [facility] Jul 16, 2024 09:40 AM AMBULATORY - MEDICINE [facility] [place] [facility] Jul 31, 2024 02:00 PM AMBULATORY - MEDICINE [facility] [place] [facility] Aug 16, 2024 11:00 AM AMBULATORY - MEDICINE [facility] [place] [facility] Aug 22, 2024 01:00 PM AM[facility]ULATORY [facility]ICINE [facility] Aug 26, 2024 03:30 PM AMBULATORY - MEDICINE [facility] Lab Results: +/- 30 days of the encounter This section includes the Chemistry and Hematology Lab Results on record with [place] for the patient. Radiology Reports and Pathology Reports are provided separately, in subsequent sections. Lab Results This section contains the Chemistry/Hematology Results that were resulted 30 days before or 30 daysafter the date of the Encounter. Date/Time Source Result Type Result - Unit Interpretation Reference Range Comment Mar 01, 2024 10:53 AM [facility] HEMOGLOBIN A1C PANEL Specimen Type: BLOOD [...] Mar 01, 2024 10:14 AM Reporting Lab: [facility] [address] [facility] [address] Performing Lab: [facility] [address] [facility] [address] HEMOGLOBIN A1C 7.8 H 4.0-5.6 Mar 01, 2024 10:53 AM [facility] MICROALBUMIN CREATININE RATIO PANEL Specimen Type: URINE No comment entered. Ordering Provider: BRANDON ARMSTRONG Report Released Date/Time: Mar 01, 2024 10:36 AM Reporting Lab: [facility] [address] [facility] [address] Performing Lab: [facility] [address] [facility] [address] MICROALBUMIN/C REATININE RATIO 13.2 mg/g 0-29.9 MICROALBUMIN,Q UANTITATIVE 0.7 mg/dL RR UNAVAIL CREATININE URINE 52.95 mg/dL Mar 01, 2024 10:53 AM [facility] LIPID PANEL FASTING Specimen Type: SERUM No comment entered. Ordering Provider: BRANDON ARMSTRONG Report Released Date/Time: Mar 01, 2024 10:33 AM Reporting Lab: [facility] [address] [facility] [address] Performing Lab: [facility] [address] [address] CHOLESTEROL 117 mg/dL TRIGLYCERIDE 94 mg/dL 0-150 LDL calculated 54 mg/dL 0-129 CHOL/HDL 2.7 HDL CHOLESTEROL 44 mg/dL 40-60 Mar 01, 2024 10:53 AM [facility] BASIC METABOLIC PANEL (non-fasting) Specimen Type: SERUM No comment entered. Ordering Provider: BRANDON ARMSTRONG Report Released Date/Time: Mar 01, 2024 10:14 AM Reporting [facility]: [facility] [address] [address] Performing Lab: [address] [address] UREA NITROGEN 41 mg/dL H 7-25 GLUCOSE [...] and tobacco- related health factors from the [place] facility where the Encounter took place. Current Smoking Status This section includes the most current smoking, or tobacco-related health factor, from the [place] facility where the Encounter took place. Date/Time Current Smoking Status Comment Facil ity Dec 12, 2022 03:10 PM VA-TOBACCO NEVER USED [facility] Encounter Notes: All associated encounter notes This section contains the clinical notes associated to the Encounter. Date/Time Encounter Note(s) Provider Source Mar 08, 2024 12:18 PM ADDENDUM: LOCAL TITLE: Addendum STANDARD TITLE: ADDENDUM DATE OF NOTE: MAR 08, 2024@12:18:28 ENTRY DATE: MAR 08, 2024@12:18:29 AUTHOR: ALCIRA LAYNE EXP COSIGNER: URGENCY: STATUS: COMPLETED Dr. Robles, Dextrose and sildenafil prescriptions have . Please review and renew as appropriate. Thank you! /KAVITHA Cormier, RN [facility]-Home Telehealth Primary Care Sales Representative Signed: 03/08/2024 12:19 Receipt Acknowledged By: 03/12/2024 13:35 /simone/ MARTIN ROBLES MD STAFF PHYSICIAN --- Original Document --- 03/08/24 HT NOTE: [place] has not utilized HT equipment for the past 21 days. Spoke with who reports he is feeling okay. States he has not got around to resuming use of HT equipment as he has had a lot going on but will try to resume use of HT equipment today. Reviewed/Educated on benefits of HT program. Reviewed HT program participation guidelines of response rate of at least 70% (which equates to five days per week), however, to get maximum benefit of program daily participation/response is strongly recommended. Educated on guidelines for discharge if not utilizing HT equipment, however, is need of close monitoring at this time due to recent changes in health conditions. verbalized understanding of all education and importance of ongoing monitoring, states he would like to remain on HT program as it has been beneficial for him in the past. [place] reports he followed up with community urologist Dr. Mccurdy yesterday, discussed his concerns and feels reassured about upcoming prostate surgical procedure on 03/25/2024. [place] states he will schedule follow up appointment with cardiology after that and has dermatology appointment in May. continues to report depression but states he is feeling a little better, has not followed up with community counselor or mental health providers and denies any thoughts of harm to self or others at this time, states he knows when and where to seek help if needed. He reports ex- is supportive. [place] expressed appreciation for the call and denies any other questions or concerns at this time. /KAVITHA Cormier RN [facility]-Home Telehealth Primary Care Sales Representative Signed: 03/08/2024 12:17 03/08/2024 ADDENDUM STATUS: COMPLETED Dr. Rodrigez, no refills remaining on chlorthalidone, valsartan and clonidine prescriptions. Please review and renew as appropriate. Thank you! /KAVITHA Cormier, [place] [facility]-Home Telehealth Primary Care Sales Representative Signed: 03/08/2024 12:18 Receipt Acknowledged By: 03/09/2024 21:43 /essence RODRIGEZ MD PHYSICIAN ALCIRA LAYNE [facility] [place] [facility] Mar 08, 2024 12:17 PM ADDENDUM: LOCAL TITLE: Addendum STANDARD TITLE: ADDENDUM DATE OF NOTE: MAR 08, 2024@12:17:39 ENTRY DATE: MAR 08, 2024@12:17:40 AUTHOR: ALCIRA LAYNE EXP COSIGNER: URGENCY: STATUS: COMPLETED Dr. Rodrigez, no refills remaining on chlorthalidone, valsartan and clonidine prescriptions. Please review and renew as appropriate. Thank you! /KAVITHA Cormier, [place] [facility]-Home Telehealth Primary Care Sales Representative Signed: 03/08/2024 12:18 Receipt Acknowledged By: 03/09/2024 21:43 /essence RODRIGEZ MD PHYSICIAN --- Original Document --- 03/08/24 HT NOTE: has not utilized HT equipment for the past 21 days. Spoke with who reports he is feeling okay. States he has not got around to resuming use of HT equipment as he has had a lot going on but will try to resume use of HT equipment today. Reviewed/Educated [place] on benefits of HT program. Reviewed HT program participation guidelines of response rate of at least 70% (which equates to five days per week), however, to get maximum benefit of program daily participation/response is strongly recommended. Educated [place] on guidelines for discharge if not utilizing HT equipment, however, is need of close monitoring at this time due to recent changes in health conditions. verbalized understanding of all education and importance of ongoing monitoring, states he would like to remain on HT program as it has been beneficial for him in the past. reports he followed up with community urologist Dr. Mccurdy yesterday, discussed his concerns and feels reassured about upcoming prostate surgical procedure on 03/25/2024. states he will schedule follow up appointment with cardiology after that and has dermatology appointment in May. continues to report depression but states he is feeling a little better, has not followed up with community counselor or mental health providers and denies any thoughts of harm to self or others at this time, states he knows when and where to seek help if needed. He reports ex- is supportive. [place] expressed appreciation for the call and denies any other questions or concerns at this time. /KAVITHA Cormier, RN [facility]-Home Telehealth Primary Care Sales Representative Signed: 03/08/2024 12:17 03/08/2024 ADDENDUM STATUS: COMPLETED Dr. Robles, Dextrose and sildenafil prescriptions have . Please review and renew as appropriate. Thank you! /KAVITHA Cormier, RN [facility]-Home Telehealth Primary Care Sales Representative Signed: 03/08/2024 12:19 Receipt Acknowledged By: * AWAITING SIGNATURE * MARTIN ROBLES [facility] [place] [facility] Mar 08, 2024 12:03 PM CARE COORDINATION HOME TELEHEALTH NOTE: LOCAL TITLE: HT NOTE STANDARD TITLE: CARE COORDINATION HOME TELEHEALTH NOTE DATE OF NOTE: MAR 08, 2024@12:03 ENTRY DATE: MAR 08, 2024@12:03:14 AUTHOR: ALCIRA LAYNE EXP COSIGNER: URGENCY: STATUS: COMPLETED HT NOTE Has ADDENDA has not utilized HT equipment for the past 21 days. Spoke with who reports he is feeling okay. States he has not got around to resuming use of HT equipment as he has had a lot going on but will try to resume use of HT equipment today. Reviewed/Educated [place] on benefits of HT program. Reviewed HT program participation guidelines of response rate of at least 70% (which equates to five days per week), however, to get maximum benefit of program daily participation/response is strongly recommended. Educated on guidelines for discharge if not utilizing HT equipment, however, [place] is need of close monitoring at this time due to recent changes in health conditions. [place] verbalized understanding of all education and importance of ongoing monitoring, states he would like to remain on HT program as it has been beneficial for him in the past. [place] reports he followed up with community urologist Dr. Mccurdy yesterday, discussed his concerns and feels reassured about upcoming prostate surgical procedure on 03/25/2024. states he will schedule follow up appointment with cardiology after that and has dermatology appointment in May. continues to report depression but states he is feeling a little better, has not followed up with community counselor or mental health providers and denies any thoughts of harm to self or others at this time, states he knows when and where to seek help if needed. He reports ex- is supportive. [place] expressed appreciation for the call and denies any other questions or concerns at this time. /KAVITHA Cormier, RN [facility]-Home Telehealth Primary Care Sales Representative Signed: 03/08/2024 12:17 03/08/2024 ADDENDUM STATUS: COMPLETED Dr. Rodrigez, no refills remaining on chlorthalidone, valsartan and clonidine prescriptions. Please review and renew as appropriate. Thank you! /KAVITHA Cormier, [place] [facility]-Home Telehealth Primary Care Sales Representative Signed: 03/08/2024 12:18 Receipt Acknowledged By: * AWAITING SIGNATURE MARIIA GOLDMAN 03/08/2024 ADDENDUM STATUS: COMPLETED Dr. Robles, Dextrose and sildenafil prescriptions have . Please review and renew as appropriate. Thank you! /KAVITHA Cormier, [place] [facility]-Home Telehealth Primary Care Sales Representative Signed: 03/08/2024 12:19 Receipt Acknowledged By: * AWAITING SIGNATURE * MARTIN ROBLES [facility]
--- OUTSIDE RECORDS SUMMARY | 2024-08-21 23:27 | XMS_ITS | Encounter Summary ---
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 Role Phone MARIIA BROUSSARD Primary [...] Patient's Relationship to Policy [employer] ([id number]) PRESCRIPT ION [facility] Mar 11, 2018 [id number] MADAI DELUNA OTHER RELATIONSHIP [facility] PREFERRED PROVIDER ORGANIZAT ION (PPO) Jun 11, 2011 [id number] MADAI DELUNA PATIENT [employer] MCR (WNR) MEDICARE ADVANTAGE MCR (WNR) Sep 11, 2022 [id number] [phone] [place] PATIENT MEDICARE (WNR) MEDICARE (M) PART A January 10, 2012 PART A [id number] [place] PATIENT MEDICARE (WNR) MEDICARE (M) PART B January 10, 2012 PART B [id number] [phone] [place] PATIENT MEDICARE (WNR) MEDICARE (M) PART A January 10, 2012 PART A [id number] GILL DELUNA PATIENT [employer] PREFERRED PROVIDER ORGANIZAT ION (PPO) CRISTHIAN LEAH GU* * Mar 11, 2015 [id number] MADAI DELUNA [facility] (WNR) MEDICARE ADVANTAGE MCR ([facility]) Mar 11, 2021 [id number] GILL DELUNA PATIENT [facility] (WNR) MEDICARE ADVANTAGE [facility] (WNR) Sep 11, 2021 [id number] GILL DELUNA PATIENT Selected Encounter This section includes the information on record at [place] for the Encounter. Date/Time Encounter Type Encounter Description Reason Provider Source January 22, 2024 08:30 AM OFFICE O/P EST LOW 20 MIN PODIATRY ICD-10-CM L60.0 Ingrowing nail TEVIN SHAY Encounter Template Text not used by [place] Assessments - Encounter Diagnoses This section includes the primary and secondary diagnoses documented for the Encounter. 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 This section includes future appointments and future orders which are active, pending or scheduled. Future Appointments This section includes appointments that were scheduled to occur 6 months from the date of the Encounter, up to a maximum of 20 appointments. The data comes from all [place] treatment facilities. Appointment Date/Time Appointment Type Appointme nt Facility Name Mar 01, 2024 10:00 AM [facility] May 16, 2024 11:30 AM [facility] [place] Jun 11, 2024 08:30 AM [facility] Jun 18, 2024 02:15 PM [facility] Jun 20, 2024 10:45 AM [facility] Jul 03, 2024 09:30 AM AMBULATORY - MEDIC[facility] Jul 16, 2024 09:40 AM [facility] Social History: Smoking Status (Most current) and Tobacco Use (All prior to encounter date) This section includes the most current, and the historical, smoking and tobacco- related health factors from the [place] facility where the Encounter took place. Current Smoking Status This section includes the most current smoking, or tobacco-related health factor, from the [place] facility where the Encounter took place. Date/Time Current Smoking Status Comment Facil ity Jul 06, 2021 09:30 AM VA-TOBACCO NEVER USED [facility] Tobacco Use History This section includes a history of the smoking, or tobacco-related health factors, that were collected on or before the date of the Encounter. The data comes from the [place] facility where the Encounter took place. Date/Time Smoking Status/Tobacco Use Comment F acility Apr 30, 2020 01:00 PM VA-TOBACCO FORMER USER [facility] Apr 30, 2020 01:00 PM VA-TOBACCO QUIT 15 YRS OR MORE [facility] January 09, 2019 02:16 PM VA-TOBACCO FORMER USER [facility] January 09, 2019 02:16 PM VA-TOBACCO QUIT 15 YRS OR MORE [facility] Feb 13, 2018 11:05 AM QUIT TOBACCO USE > 7 YEARS AGO [facility] Feb 28, 2017 01:42 PM LIFETIME NON-TOBACCO USER quit 1976 [facility] Nov 17, 2015 09:53 AM QUIT TOBACCO USE > 7 YEARS AGO [facility] February 08, 2002 03:04 PM QUIT TOBACCO USE > 7 YEARS AGO Patient states he smoked from age [age] and quit. [facility] Aug 10, 2001 03:42 PM NON-TOBACCO USER Stopped tobacco 35 years ago [facility] Encounter Notes: All associated encounter notes This section contains the clinical notes associated to the Encounter. Date/Time Encounter Note(s) Provider Source January 22, 2024 07:18 AM PODIATRY NOTE: LOCAL TITLE: PODIATRY NOTE STANDARD TITLE: PODIATRY NOTE DATE OF NOTE: JANUARY 22, 2024@07:18 ENTRY DATE: JANUARY 22, 2024@07:18:20 AUTHOR: TEVIN SHAY EXP COSIGNER: URGENCY: STATUS: COMPLETED NOTE: PATIENT HAS HAS RECEIVED BOTH COVID-19 VACCINE DOSES +[address] [facility] LAST SEEN FOR TREATMENT: 08/28/2023 S: Pt. is a 78 yo alert WDWN CAUC MALE who presents for continued podiatric EVALUATION AND care for treatment of a presenting complaint of painful ingrown toenails that have become uncomfortable and he is unable to render self care. Patient has TYPE I DM & is at risk of injury with self or other non-professional care. Location of symptoms are: nails 1-2-3-4-5 bilateral bilateral. Onset of symptoms has been several WEEKS due to this being a recurrent condition that has been exacerbating over the past few DAYS. Duration of symptoms is daily with periods of exacerbation and remission. Description of symptoms is of an aching throbbing nature. Pain level is 2-3/10 prior to treatment and 0/10 after care. *DENIES ANY RECENT CHANGES IN MEDS UPON QUESTIONING TODAY-SEE RECONCILIATION PERFORMED THIS DATE BELOW DENIES TOBACCO PMH: *NOTE: REVIEWED ABOVE NOTING NO CHANGES SINCE PREVIOUS VISIT:(TYPE II DM, PVD) *PLEASE SEE PROBLEM LIST TEMPLATE FOR COMPLETE LIST NEEDED. *NOTE: A1c =7.9 (LAST SEEN: 08/2023) KFF=[id number] RISK=2 HEIGHT:200.5 lb [91.1 kg] (07/12/2017 09:07) WEIGHT:67 in [170.2 cm] (02/28/2017 13:38) O: DERMATOLOGICAL: Exam reveals skin color, temp & text to be WNL. There is normal distribution of hair noted. Nails are WNL but incurvated AND PAINFUL TO PALPATION AND THERE ARE PAINFUL superficial painful hyperkeratotic lesions noted at this time: POSTERIOR HEELS BILATERAL. There are no rashes, ulcers, indurations or nodules noted. VASCULAR: Exam reveals PT pulses to be absent non-palpable bilateral & DP pulses are +2 equal & symmetrical bilateral. CFT is <3 sec x 10. There are no superficial varices noted and there is no edema noted. MUSCULOSKELETAL: Exam reveals muscle strength and tone to be equal & symmetrical bilaterally & WNL for an individual of this age and present physical-medical condition. There is pain free ROM at all joints distal to and including the ankle. NEUROLOGICAL: Exam reveals S/D, vibratory, light touch & proprioception sensations to be equal & symmetrical bilaterally & diminished for an individual of this age and present physical-medical status. Protective sensation utilizing a [place] lOg monofilament is 10/10 bilateral. Exams are reviewed and noted to be unchanged since last visit and determined to be non-contributory to the cc . A: Clinical Impression is painful onychocryptic nails & hyperkeratosis of the heels as noted above in the presence of [id number]. P: Treatment consists of trimming-reduction of all nails via manual & electric means with excision of the offending nails borders and curetting the nail grooves AND PARING-DEBRIDEMENT OF HYPERKERATOSIS POSTERIOR HEELS UTILIZING A STERILE # 10 SCALPEL. All care rendered without complications & pt. progressing well after podiatric care this date & will be scheduled for periodic care in an attempt to prevent future complications due to the underlying medical conditions. Tx. by a non-professional could be extremely hazardous to the patient's well-being due to the underlying medical condition. I also reviewed home foot care and provided him with written information re: Home Foot Care tips for utilization between visits. RTC 24 WEEKS(@ 8:30AM) *REVIEWED HOME FOOT CARE FEET ARE IN EXCELLENT CONDITION AND I PROVIDED HIM WITH WRITTEN RECOMMENDATIONS FOR FOOT CARE TO BE REVIEWED AT HOME (FOOT CARE TIPS). *DISCUSSED NEW PROTOCOLS AND CALLED LIEN FOR RESCHEDULING TODAY I DISCUSSED THE FINDINGS & PLAN WITH PATIENT (UNCHANGED SINCE PREVIOUS VISIT) & PATIENT AGREES AND UNDERSTANDS PLAN * NOT IN NEED OF MIRROR DISCUSSED A VARIETY OF SOCIAL ISSUES WITH NO CONCLUSIONS & ALSO DISCUSSED MY NOT HAVING CATARACT SURGERY Medication Reconciliation: PERFORMED TODAY - SEE BELOW. Outpatient: Has the patient been taking medications as documented in the EMLR? YES: The patient has been taking medications as documented in the EMLR. Essential Medication List for Review used to complete this medication reconciliation. INCLUDED IN THIS LIST: Alphabetical list of active outpatient prescriptions dispensed from this VA (local) and dispensed from another VA or DoD facility (remote) as well as inpatient orders (local, pending and active), local clinic medications, locally documented non-VA medications, and local prescriptions that have or been discontinued in the past 90 days. - All changes in medications, including all non-VA/Herbal/OTC medications were entered into CPRS. - If there were any medications the patient should no longer take, they were discontinued. - The patient/caregiver was instructed to update this list, discard old lists, and take this list to the next appointment, whether with a VA or non-VA provider. JLV Link Data on this list may not be complete. Please check JLV. Allergies/ADRs (Tool #5) FACILITY ALLERGY/ADR -------- No Remote Allergy/ADR Data available for this patient [facility] [place] [facility] [place] LISINOPRIL [facility] [place] METFORMIN [facility] [place] NIFEDIPINE Med Recon NoGlossary (Tool #1) INCLUDED IN THIS LIST: Alphabetical list of active outpatient prescriptions dispensed from this VA (local) and dispensed from another [place] or [place] facility (remote) as well as inpatient orders (local pending and active), local clinic medications, locally documented non-VA medications, and local prescriptions that have or been discontinued in the past 90 days. Non-VA Meds Last Documented On: Dec 22, 2020 NOTE The display of VA prescriptions dispensed from another [place] or DoD facility (remote) is limited to active outpatient prescription entries matched to National Drug File at the originating site and may not include some items such as investigational drugs, compounds, etc. NOT INCLUDED IN THIS LIST: Medications self-entered by the patient into personal health records (i.e. vidCoin) are NOT included in this list. Non-VA medications documented outside this [place], remote inpatient orders (regardless of status) and remote clinic medications are NOT included in this list. The patient and provider must always discuss medications the patient is taking, regardless of where the medication was dispensed or obtained. OUTPT BETHANECHOL CHLORIDE 25MG TAB (Status = Discontinued) TAKE TWO TABLETS BY MOUTH TWICE DAILY FOR URINARY RETENTION Rx# [id number] Last Released: 11/29/23 Qty/Days Supply: 30 Rx Expiration Date: 11/10/24 Refills Remainin OUTPT BETHANECHOL CHLORIDE 25MG TAB (Status = Discontinued) TAKE TWO TABLETS BY MOUTH TWICE DAILY FOR URINARY RETENTION Rx# [id number] Last Released: 01/15/24 Qty/Days Supply: Rx Expiration Date: 01/11/25 Refills Remainin OUTPT BETHANECHOL CHLORIDE 25MG TAB (Status = Active/Suspended) TAKE TWO TABLETS BY MOUTH TWICE DAILY FOR URINARY RETENTION Rx# [id number] Last Released: QtDays Supply: Rx Expiration Date: 01/11/25 Refills Remainin OUTPT CARBOXYMETHYLCELLULOSE NA 0.5% OPH SOLN (Status = ) INSTILL 1 DROP INTO EACH EYE THREE TIMES A DAY Rx# [id number] Last Released: 10/21/23 Qty/Days Supply: Rx Expiration Date: 11/08/23 Refills Remainin OUTPT CHLORTHALIDONE 25MG TAB (Status = Discontinued) TAKE ONE TABLET BY MOUTH ONCE DAILY TO REMOVE FLUID/CONTROL BLOOD PRESSURE Rx# [id number] Last Released: 08/11/23 Qty/Days Supply: Rx Expiration Date: 08/07/24 Refills Remainin OUTPT CHLORTHALIDONE 25MG TAB (Status = Active) TAKE ONE TABLET BY MOUTH ONCE DAILY TO REMOVE FLUID/CONTROL BLOOD PRESSURE Rx# [id number] Last Released: 11/03/23 Qty/Days Supply: Rx Expiration Date: 10/30/24 Refills Remainin OUTPT CLONIDINE HCL 0.1MG TAB (Status = Active) TAKE ONE TABLET BY MOUTH EVERY 12 HOURS TO CONTROL BLOOD PRESSURE Rx# [id number] Last Released: 12/20/23 Qty/Days Supply: Rx Expiration Date: 10/11/24 Refills Remainin Indication: FOR HIGH BLOOD PRESSURE OUTPT DEXTROSE 24GM/31GM SQUEEZE TUBE (Status = Active) 1 TUBE BY MOUTH NEEDED FOR LOW BLOOD SUGAR Rx# [id number] Last Released: 11/29/23 Qty Supply: 12/08 Rx Expiration Date: 01/31/24 Refills Remainin Indication: FOR LOW BLOOD SUGAR OUTPT FINASTERIDE 5MG TAB (Status = Discontinued) TAKE ONE TABLET BY MOUTH ONCE DAILY FOR PROSTATE Rx# [id number] Last Released: 11/24/23 QtyDays Supply: Rx Expiration Date: 08/07/24 Refills Remainin OUTPT FINASTERIDE 5MG TAB (Status = Active/Suspended) TAKE ONE TABLET BY MOUTH ONCE DAILY Rx# [id number] Last Released: Supply: Rx Expiration Date: 01/11/25 Refills Remainin Non-VA FLUTICASONE NASAL SOLN,NASAL INSTILL INTO EACH NOSTRIL Non-VA medication not recommended by VA provider. OUTPT INSULIN,ASPART(EQV-NOVLG)100UN/ML FLXPEN (Status = Discontinued) INJECT DIRECTED SUBCUTANEOUSLY THREE TIMES A DAY ACCORDING TO ICR OF 1 UNIT FOR EACH 9 GRAMS OF CARBS BEFORE BREAKFAST AND LUNCH AND 1 UNIT FOR EACH 10 GRAMS OF CARBS BEFORE DINNER MEAL Rx# [id number] Last Released: 08/23/23 Qty/Days Supply: Rx Expiration Date: 11/22/23 Refills Remainin Indication: FOR DIABETES OUTPT INSULIN,ASPART(EQV-NOVLG)100UN/ML FLXPEN (Status = Active) INJECT DIRECTED SUBCUTANEOUSLY THREE TIMES A DAY ACCORDING TO ICR OF 1 UNIT FOR EACH 9 GRAMS OF CARBS BEFORE BREAKFAST AND LUNCH AND 1 UNIT FOR EACH 10 GRAMS OF CARBS BEFORE DINNER MEAL Rx# [id number] Last Released: 11/14/23 QtyDays Supply: Rx Expiration Date: 11/13/24 Refills Remainin Indication: FOR DIABETES OUTPT INSULIN,GLARGINE-YFGN 100UNIT/ML PEN 3ML (Status = Active) INJECT 18 UNITS SUBCUTANEOUSLY ONCE DAILY Rx# [id number] Last Released: 11/01/23 Qty/Days Supply: Rx Expiration Date: 08/23/24 Refills Remainin Indication: FOR DIABETES OUTPT LORAZEPAM 0.5MG TAB (Status = Active) TAKE ONE TABLET BY MOUTH ONCE DAILY FOR ANXIETY Rx# [id number] Last Released: 11/30/23 Qty/Days Supply: 06/20 Rx Expiration Date: 04/24/24 Refills Remainin Indication: FOR ANXIETY OUTPT SEMAGLUTIDE 2MG/0.75ML INJ PEN 3ML (Status = Discontinued) INJECT 2MG SUBCUTANEOUSLY ONCE A WEEK FOR TYPE 2 DIABETES MELLITUS Rx# [id number] Last Released: 11/02/23 Qty/Days Supply: 10/08 Rx Expiration Date: 08/04/24 Refills Remainin Indication: FOR TYPE 2 DIABETES MELLITUS OUTPT SEMAGLUTIDE 2MG/0.75ML INJ PEN 3ML (Status = Active) INJECT 2MG SUBCUTANEOUSLY ONCE A WEEK FOR TYPE 2 DIABETES MELLITUS Rx# [id number] Last Released: 01/15/24 Qty/Days Supply: 10/08 Rx Expiration Date: 11/13/24 Refills Remainin Indication: FOR TYPE 2 DIABETES MELLITUS OUTPT SILDENAFIL CITRATE 100MG TAB (Status = ) TAKE ONE TABLET BY MOUTH ONCE DAILY NEEDED TAKE 1 HOUR PRIOR TO SEXUAL ACTIVITY Rx# [id number] Last Released: 11/14/23 Qty/Days Supply: 03/10 Rx Expiration Date: 12/13/23 Refills Remainin Indication: FOR ERECTILE DYSFUNCTION OUTPT VALSARTAN 320MG TAB (Status = Active) TAKE ONE TABLET BY MOUTH ONCE DAILY Rx# [id number] Last Released: 12/20/23 Qty/Days Supply: Rx Expiration Date: 10/10/24 Refills Remainin SUPPLIES OUTPT ACCU-CHEK GUIDE (GLUCOSE) TEST STRIP (Status = Active) USE 1 STRIP TO TEST BLOOD SUGARS FOUR TIMES A DAY Rx# [id number] Last Released: 12/28/23 Qty/Days Supply: 200/50 Rx Expiration Date: 12/25/24 Refills Remainin OUTPT GLUCOSE SENSOR DEXCOM G7 (Status = Active) USE 1 SENSOR DIRECTED EVERY 10 DAYS Rx# [id number] Last Released: 12/12/23 Qty/Days Supply: 12/08 Rx Expiration Date: 10/13/24 Refills Remainin OUTPT GLUCOSE SENSOR FREESTYLE IVETH 3 (Status = Discontinued) USE 1 SENSOR DIRECTED EVERY 14 DAYS Rx# [id number] Last Released: 08/29/23 Qty/Days Supply: 11/08 Rx Expiration Date: 05/09/24 Refills Remainin OUTPT LANCET,SOFTCLIX (Status = Active) USE 1 LANCET DIRECTED FOUR TIMES A DAY TO TEST BLOOD SUGAR Rx# [id number] Last Released: 12/28/23 Qty/Days Supply: 200/50 Rx Expiration Date: 12/25/24 Refills Remainin OUTPT NEEDLE,PEN 31G,5MM (Status = ) USE 1 NEEDLE SUBCUTANEOUSLY FOUR TIMES A DAY FOR USE WITH PEN DEVICE Rx# [id number] Last Released: 08/24/23 Qty/Days Supply: 400/90 Rx Expiration Date: 11/22/23 Refills Remainin OUTPT NEEDLE,PEN 31G,5MM (Status = Active) USE 1 NEEDLE SUBCUTANEOUSLY FOUR TIMES A DAY FOR USE WITH PEN DEVICE Rx# [id number] Last Released: Qty/Days Supply: 400/90 Rx Expiration Date: 01/19/25 Refills Remainin /es/ TEVIN SHAY DPM ANALYSIS SPECIALIST Signed: 01/22/2024 08:55 TEVIN SHAY
--- OUTSIDE RECORDS SUMMARY | 2024-08-21 23:27 | XMS_ITS | Encounter Summary ---
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 Name Role Phone MARIIA BROUSSARD Primary Care [...] Patient's Relationship to Policy [employer] ([id number]) PRESCRIPT ION [facility] Mar 11, 2018 [id number] MADAI DELUNA OTHER RELATIONSHIP [facility] PREFERRED PROVIDER ORGANIZAT ION (PPO) Jun 11, 2011 [id number] MADAI DELUNA PATIENT [employer] MCR (WNR) MEDICARE ADVANTAGE MCR (WNR) Sep 11, 2022 [id number] [phone] [place] PATIENT MEDICARE (WNR) MEDICARE (M) PART A January 10, 2012 PART A [id number] [place] PATIENT MEDICARE (WNR) MEDICARE (M) PART B January 10, 2012 PART B [id number] [phone] [place] PATIENT MEDICARE (WNR) MEDICARE (M) PART A January 10, 2012 PART A [id number] GILL DELUNA PATIENT [place] PREFERRED PROVIDER ORGANIZAT ION (PPO) CRISTHIAN LEAH GU* * Mar 11, 2015 [id number] MADAI DELUNA [facility] (WNR) MEDICARE ADVANTAGE [facility] (WNR) Mar 11, 2021 [id number] GILL DELUNA PATIENT [facility] (WNR) MEDICARE ADVANTAGE [facility] (WNR) Sep 11, 2021 [id number] [phone] GILL DELUNA PATIENT Selected Encounter This section includes the information on record at [place] for the Encounter. Date/Time Encounter Type Encounter Description Reason Provider Source Mar 01, 2024 10:00 AM MTMS BY BRUNO RONDON 15 MIN CLINICAL PHARMACY ICD-10-CM E11.9 Type 2 diabetes mellitus without complications DARRICK ARMSTRONG [facility] Encounter Template Text not used by [place] Assessments - Encounter Diagnoses This section includes the primary and secondary diagnoses documented for the Encounter. Date/Time Primary/Secondary Diagnosis Diagnosis Name Provider Source Mar 01, 2024 12:50 PM PRIMARY Type 2 diabetes mellitus without complications BRANDON ARMSTRONG [place] Plan of Treatment: Future Appointments (+ 6 months) and Future Tests (+/- 45 days) The Plan of Treatment section includes future care activities for the patient from all [place] treatmentfacilities. This section includes future appointments and future orders which are active, pending or scheduled. Future Appointments This section includes appointments that were scheduled to occur 6 months from the date of the Encounter, up to a maximum of 20 appointments. The data comes from all [place] treatment facilities. Appointment Date/Time Appointment Type Appointme nt Facility Name May 16, 2024 11:30 AM AMBULATORY - MEDICINE [place] [facility] RAOUL PEREIRA [facility] Jun 11, 2024 08:30 AM [facility] Jun 18, 2024 02:15 PM [facility] MEDICINE [facility] Jun 20, 2024 10:45 AM [facility] Jul 03, 2024 09:30 AM AMBULATORY - MEDICINE [place] [facility] RAOLU [place] [facility] Jul 16, 2024 09:40 AM AMBULATORY [place] MEDICINE [place] [facility] Jul 31, 2024 02:00 PM AMBULATORY - MEDICINE [place] [facility] [place] [facility] Aug 16, 2024 11:00 AM AMBULATORY - MEDICINE [place] [facility] [place] [facility] Aug 22, 2024 01:00 PM AMBULATORY - MEDICINE [place] [facility] [place] [facility] Aug 26, 2024 03:30 PM AMBULATORY - MEDICINE [place] [facility] Lab Results: +/- 30 days of the encounter This section includes the Chemistry and Hematology Lab Results on record with [place] for the patient. Radiology Reports and Pathology Reports are provided separately, in subsequent sections. Lab Results This section contains the Chemistry/Hematology Results that were resulted 30 days before or 30 daysafter the date of the Encounter. Date/Time Source Result Type Result - Unit Interpretation Reference Range Comment Mar 01, 2024 10:53 AM [facility] HEMOGLOBIN A1C PANEL Specimen Type: BLOOD [...] Mar 01, 2024 10:14 AM Reporting Lab: [facility] [address] [facility] [address] Performing Lab: [facility] [place] [facility] [address] [facility] [address] HEMOGLOBIN A1C 7.8 H 4.0-5.6 Mar 01, 2024 10:53 AM [facility] MICROALBUMIN CREATININE RATIO PANEL Specimen Type: URINE No comment entered. Ordering Provider: BRANDON ARMSTRONG Report Released Date/Time: Mar 01, 2024 10:36 AM Reporting Lab[facility] [address] [facility] [address] Performing Lab: [facility] [address] [address] MICROALBUMIN/C REATININE RATIO 13.2 mg/g 0-29.9 MICROALBUMIN,Q UANTITATIVE 0.7 mg/dL RR UNAVAIL CREATININE URINE 52.95 mg/dL Mar 01, 2024 10:53 AM [facility] LIPID PANEL FASTING Specimen Type: SERUM No comment entered. Ordering Provider: BRANDON ARMSTRONG Report Released Date/Time: Mar 01, 2024 10:33 AM Reporting Lab: [address] [address] Performing Lab: [address] [address] CHOLESTEROL 117 mg/dL TRIGLYCERIDE 94 mg/dL 0-150 LDL calculated 54 mg/dL 0-129 CHOL/HDL 2.7 HDL CHOLESTEROL 44 mg/dL 40-60 Mar 01, 2024 10:53 AM [facility] BASIC METABOLIC PANEL (non-fasting) Specimen Type: SERUM No comment entered. Ordering Provider: BRANDON ARMSTRONG Report Released Date/Time: Mar 01, 2024 10:14 AM Reporting Lab: [facility] [address] [facility] [address] Performing Lab: [address] [address] UREA NITROGEN 41 mg/dL H 7-25 GLUCOSE [...] and tobacco- related health factors from the [place] facility where the Encounter took place. Current Smoking Status This section includes the most current smoking, or tobacco-related health factor, from the [place] facility where the Encounter took place. Date/Time Current Smoking Status Comment Facil [facility] Jul 06, 2021 09:30 AM [place]-TOBACCO NEVER USED [place] Tobacco Use History This section includes a history of the smoking, or tobacco-related health factors, that were collected on or before the date of the Encounter. The data comes from the [place] facility where the Encounter took place. Date/Time Smoking Status/Tobacco Use Comment F acility Apr 30, 2020 01:00 PM VA-TOBACCO FORMER USER [place] Apr 30, 2020 01:00 PM VA-TOBACCO QUIT 15 YRS OR MORE [place] January 09, 2019 02:16 PM VA-TOBACCO FORMER USER [place] January 09, 2019 02:16 PM VA-TOBACCO QUIT 15 YRS OR MORE [place] Feb 13, 2018 11:05 AM QUIT TOBACCO USE > 7 YEARS AGO [place] Feb 28, 2017 01:42 PM LIFETIME NON-TOBACCO USER quit 1976 [place] Nov 17, 2015 09:53 AM QUIT TOBACCO USE > 7 YEARS AGO [place] February 08, 2002 03:04 PM QUIT TOBACCO USE > 7 YEARS AGO Patient states he smoked from age [age] and quit. [place] Aug 10, 2001 03:42 PM NON-TOBACCO USER Stopped tobacco 35 years ago [place] Encounter Notes: All associated encounter notes This section contains the clinical notes associated to the Encounter. Date/Time Encounter Note(s) Provider Source Mar 01, 2024 10:09 AM PHARMACY OUTPATIEN T NOTE: LOCAL TITLE: PHARMACY CLINIC NOTE STANDARD TITLE: PHARMACY OUTPATIENT NOTE DATE OF NOTE: MAR 01, 2024@10:09 ENTRY DATE: MAR 01, 2024@10:09:12 AUTHOR: LUX ARMSTRONG COSIGNER: URGENCY: STATUS: COMPLETED Patient Name: GILL DELUNA was seen via [facility] for follow-up for diabetes management treatment. : January Age: 78 Sex: MALE Race: WHITE Subjective: Pt is here for follow up. 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 Pt states he has gone through a period of depression. He has some personal problems w/ his younger son who stopped talking to him. Vast majority of the visit pt discussed those issues. Pt is scheduled for prostate surgery on March 25. He continues to have close friendship w/ his ex-. Per prev: Pt states he is doing well. 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 Pt successfully connected dexcom clarity to the endocrine clinic. Pt states he has some problems w/ dexcom sensor namely certain level of BG inacuracy between fingerstick and sensor reading. Per prev: Pt contacted the clinic to report hypoglycemic events. Per prev: Pt was contacted for a f/up. He reports no hypoglycemic events since last dose adjustment of insulin. Pt is likes the dexcom sensor. He is being contacted for a f/up. Per prev: Pt was followed up over telephone for BG management. Pt states his BG have been trending higher for couple of weeks but now have gone down a bit but still above normal range. Pt has ran out of ugo 3 sensors and is using traditional fingerstick. Typical range for fingerstick last 2-3 days: 139-168 mg/dl Per prev: Pt was contacted for telephone f/up. PT states he is doing very well and better than prior. He is not however looking forward to [facility] holidays. He continues to work- has Mondays off. Per prev: Pt was contacted for a f/up. Last 3 days sensor readings much improved without any false readings. PT is using ugo 3 now. He had appt w/ PCP yesterday. He informed the feature writer he decided to stopp empagliflozin 3 weeks ago after reading on its profile and ADR's. Per prev: Pt presents for a scheduled ugo 3 training visit. He is very dissapointed w/ ugo 2 sensor as many of them fell off and he had a bad experience w/ customer service. Explained to the that his is not usual. After a short discussion pt agreed to train on ugo 3 using his phone. Pt states he continues to work and is getting tired and he is managing his aunt's estate after her passing which adds to the stress. Per prev: Pt is no longer using sensor. Pt kept obtaining error message on the reader. He has contacted the provided [employer] [place] dedicated line and received several replacement sensors in mail - each one of them failed to work. Out of frustration pt stopped the sensors and is currently using glucose meter. Per pt's report the phone/reader does not communicate w/ the sensor and nobody was able to assist him with that. Discussed option to transition to ugo 3. Pt reports many stressors i.e. his aunt passing away and him being in charge of dealing with her estate. Pt is seeing MH at the [place] and is grateful for that. He also reports his job being unusually stressful as of late. Per prev: Pt was conatcted last on 01/30/23 when there were hypoglycemic events. Pt states he has not had hypoglycemia since rather BG are runnign high. per prev: Pt was contacted as he was scheduled for telphone f/up and in response to the secure messaging note received today: Pt did not incresae the dose of semaglutide yet and did not decresae the dosages of insulin as instructed on 01/23/23. Pt notified the feature writer via secure messaging: on 01/30/23: could you please look at my Ugo View readings Mostly last night I called 911 my readings were 53, 49, 65, 67, 69. 66 even after i took 4 glucose tablets 8 oz of orange and candy bar I checked my finger stick monitor and there was about 3 to 40 mg/dl difference The EMT got 87 and 114 not sure what to do Can you call me [phone] ed Per prev: Pt is here to help w/ connection of ugo view. Pt was started on ugo 2 last week and is struggling w/ connecting to ugo view. Per prev: Pt was trained on ugo at the last visit. He received the invitation for ugo view but did not accept it yet. 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 He is glad he is on this equipment. The feature writer spent close to 20 minutes trying to have pt accept the invitation without success. Both feature writer and pt agreed for him to come to the clinic this week to set that up so the data can be viewed remotely. Per prev: Pt presented to the visit for ugo training. Due to the fact that ugo 3 is on backorder, pt will be trained on ugo 2 instead. Per prev: Pt was last seen over telephone on 06/2022. Pt states his BG have been on the decline. He is unsure as to why as nothing has changed outside of reporting depressed mood around holiday season and slight increase in milk intake. Target Goals: A1C: 7%; FB-130 mg/dL; 2HRS PP <180mg/dL. Allergies: NIFEDIPINE, LISINOPRIL, METFORMIN, CHANTIX PERTINENT INFORMATION: Active problems - Computerized Problem List is the source for the followin. Bradycardia 2. Benign Prostatic Hypertrophy with Outflow Obstruction ([facility] [id number]) 3. Erectile Dysfunction ([facility] [id number]) 4. Depression ([facility] [id number]) 5. Actinic keratosis 6. Basal cell carcinoma of skin 7. Vitamin D Deficiency ([facility] [id number]) 8. Contact dermatitis 9. Space-occupying lesion of brain 10. Second degree atrioventricular block 11. Cancer screening follow up 12. Hyperglycemia due to type 2 diabetes mellitus 13. PVD-peripheral vascular disease 14. Hyperlipidemia 15. Elevated PSA 16. Epistaxis * 17. Sleep apnea (SNOMED CT 59183805) 18. Superficial basal cell carcinoma 19. Gastroesophageal reflux disease ([facility]OMED CT 903932504) 20. Anxiety 21. Diabetes mellitus (SNOMED CT 59264922) 22. Essential hypertension (SNOMED CT 14751791) 23. Body mass index 25-29 - overweight 24. Recurrent major depression in partial remission Objective: Diabetes Medication Regimen: -Insulin Novolog per ICR to 1:7 before breakfast and lunch; and 1:10 at dinner meal ; folow a meal dose calculator* ISF of 1:28 for BG >130 mg/dl pre meal avg 12-20 units/meals -Insulin glargine Semglee 9 units daily hs @10 PM - *decreased on 11/10/23. - self-reduced due to hypoglycemia -Semaglutide 2mg once weekly (Mondays)- started 2 mg dose on 02/13/23 Previous medications for DM: + Hx ADR to metformin IR and SA -empagliflozin 12.5mg daily in AM - stopped 06/2023 - B/C pt did not think it was very effective Adherence: skips if meal is skipped; otherwise, denies missed doses ADRs: denies Labs: HEMOGLOBIN A1C TREND Collection DT Spec HGBA1c 08/14/2023 08:00 BLOOD 7.9 H 05/04/2023 13:44 BLOOD 7.6 H 01/12/2023 07:44 BLOOD 8.2 H 11/15/2022 13:53 BLOOD 8.2 H 09/02/2022 14:16 BLOOD 9.2 H CBC TREND Collection DT Spec WBC RBC HGB HCT MCV MCH PLT 01/12/2023 07:44 BLOOD 6.56 5.36 16.7 48.4 90.3 31.2 165 11/15/2022 13:53 BLOOD 7.65 5.49 16.8 48.9 89.1 30.6 151 03/16/2022 09:06 BLOOD 6.46 5.14 15.9 46.5 90.5 30.9 156 12/23/2020 10:14 BLOOD 6.76 4.67 14.3 41.9 89.7 30.6 153 10/24/2019 13:42 BLOOD 6.07 4.79 14.7 43.9 91.6 30.7 161 CHEM 7 TREND LAB CUMULATIVE SELECTED Collection DT Spec GLUCOSE BUN CREATIN Sodium K+/Pot CL CO2 08/14/2023 08:00 SERUM 138 H 26 H 1.00 138 4.3 100 29 05/04/2023 13:44 SERUM 226 H 54 H 0.96 138 4.1 104 24 02/28/2023 08:43 SERUM 195 H 33 H 0.92 142 3.6 105 24 01/12/2023 07:44 SERUM 168 H 30 H 0.98 140 3.4 L 101 28 11/15/2022 13:53 SERUM 185 H 26 H 1.02 139 3.9 103 27 LAB CUMULATIVE SELECTED 2 No selection items chosen for this component. CHEM 7 Results Collection DT Spec Sodium K+/Pot CL CO2 GLUCOSE BUN 08/14/2023 08:00 SERUM 138 4.3 100 29 138 H 26 H 05/04/2023 13:44 SERUM 138 4.1 104 24 226 H 54 H 02/28/2023 08:43 SERUM 142 3.6 105 24 195 H 33 H 01/12/2023 07:44 SERUM 140 3.4 L 101 28 168 H 30 H 11/15/2022 13:53 SERUM 139 3.9 103 27 185 H 26 H 09/02/2022 14:16 SERUM 141 4.5 100 30 185 H 34 H 07/12/2021 13:43 SERUM 141 4.4 102 30 110 H 24 04/07/2021 13:49 SERUM 143 4.7 101 32 H 188 H 28 H 12/23/2020 10:14 SERUM 140 3.8 102 26 180 H 20 10/24/2019 13:42 SERUM 143 4.8 103 30 204 H 21 05/08/2018 10:14 SERUM 138 3.8 101 29 167 H 27 H 03/23/2018 16:16 SERUM 139 5.1 H 103 26 204 H 28 H 01/31/2018 12:29 SERUM 140 4.3 103 29 219 H 24 08/29/2017 11:42 SERUM 141 4.6 102 30 259 H 23 02/20/2017 12:14 SERUM 138 4.0 103 28 181 H 29 H 10/21/2016 15:52 SERUM 141 4.3 103 30 139 H 23 11/09/2015 11:08 SERUM 142 4.5 101 28 196 H 22 05/19/2015 14:28 SERUM 140 4.5 106 26 226 H 24 03/16/2015 13:34 SERUM 142 4.7 105 27 167 H 21 10/23/2014 14:53 SERUM 143 4.9 106 28 218 H 19 10/21/2013 09:36 SERUM 142 4.7 102 28 258 H 19 05/08/2013 14:29 SERUM 144 4.3 104 29 140 H 17 01/08/2013 13:27 SERUM 144 4.8 104 34 H 149 H 13 03/20/2012 14:11 SERUM 142 5.1 H 104 30 200 H 16 11/04/2011 09:48 SERUM 140 4.7 102 25 179 H 27 H 01/10/2011 11:42 SERUM 141 4.3 108 24 184 H 15 08/11/2010 15:06 SERUM 141 4.2 95 L 30 132 H 22 04/20/2010 14:30 SERUM 141 4.6 106 26 169 H 20 02/01/2002 12:16 SERUM 128 H 02/01/2002 09:44 SERUM 127 H 07/09/2001 09:14 SERUM 143 3.8 102 30 143 H 16 09/14/2000 12:29 SERUM 208 H 09/14/2000 09:11 SERUM 143 3.8 105 28 141 H 09/17/1999 09:32 SERUM 146 H 4.1 104 26 143 H 23 05/05/1998 13:49 SERUM 143 4.2 102 28 01/06/1998 11:22 SERUM 140 4.3 102 29 102 20 02/09/1996 15:38 SERUM 23 07/10/1995 15:44 SERUM 140 3.9 102 29 02/21/1995 08:24 SERUM 139 4 101 27 12/27/1994 14:15 SERUM 17 04/01/1994 09:16 SERUM 135 4.3 104 24 12/20/1993 14:32 SERUM 18 08/24/1993 08:22 SERUM 141 3.9 105 27 27 H 01/11/1993 09:06 SERUM 133 H 18 10/10/1991 08:48 SERUM 120 22 LIPID PANEL TREND Collection DT Spec CHOL HDL CHO/HDL LDL-c TRIG 01/12/2023 07:44 SERUM 108 40 2.7 48 101 11/15/2022 13:53 SERUM 122 46 2.7 64 60 12/23/2020 10:14 SERUM 106 40 2.7 46 101 10/24/2019 13:42 SERUM 108 40 2.7 57 56 05/08/2018 10:14 SERUM 114 34 L 3.4 60 100 THYROID PANEL Collection DT Specimen Test Name Result Units Ref Range 01/12/2023 07:44 SERUM TSH 1.68 uIU/mL 0.35 - 5.00 01/12/2023 07:44 SERUM THYROID T4 FREE(F 0.89 ng/dL 0.6 - 1.6 VITAMIN D 25-OH Collection DT Specimen Test Name Result Units Ref Range 08/14/2023 08:00 SERUM VITAMIN D (25-OH) 23 ng/mL 20 - 50 SrCr (last 6 weeks): CREATININE-EGFR - NONE FOUND CRCL IBW: CrCl(est): 56.7 mL/min (Creat:1.00 08/14/23) CRCL ACT: 69.82 mL/min CRCL ADJ: 56.7 mL/min (08/14/23) lft's: wnl 01/2023 Vitals: Weight (BMI): 172.8 lb [78.38 kg] (06/26/2023 15:51) Height: 66 in [167.6 cm] (12/23/2020 10:32) BMI: 27.9 Active and Recently Outpatient Medications (including Supplies): Active Outpatient Medications Status Active Outpatient Medications (including Supplies): CARBOXYMETHYLCELLULOSE NA 0.5% OPH SOLN INSTILL 1 DROP ACTIVE INTO EACH EYE THREE TIMES A DAY CHLORTHALIDONE 25MG TAB TAKE ONE TABLET BY MOUTH ONCE ACTIVE DAILY TO REMOVE FLUID/CONTROL BLOOD PRESSURE DEXTROSE 24GM/31GM SQUEEZE TUBE 1 TUBE BY MOUTH NEEDED ACTIVE FOR LOW BLOOD SUGAR FINASTERIDE 5MG TAB TAKE ONE TABLET BY MOUTH ONCE DAILY ACTIVE FOR PROSTATE GLUCOSE SENSOR FREESTYLE UGO 3 USE 1 SENSOR DIRECTED ACTIVE EVERY 14 DAYS INSULIN,ASPART(EQV-NOVLG)100UN/ML FLXPEN INJECT ACTIVE DIRECTED SUBCUTANEOUSLY THREE TIMES A DAY ACCORDING TO ICR OF 1 UNIT FOR EACH 9 GRAMS OF CARBS BEFORE BREAKFAST AND LUNCH AND 1 UNIT FOR EACH 10 GRAMS OF CARBS BEFORE DINNER MEAL INSULIN,GLARGINE-YFGN 100UNIT/ML PEN 3ML INJECT 18 UNITS ACTIVE (S) SUBCUTANEOUSLY ONCE DAILY LORAZEPAM 0.5MG TAB TAKE ONE TABLET BY MOUTH ONCE DAILY ACTIVE FOR ANXIETY NEEDLE,PEN 31G,5MM USE 1 NEEDLE SUBCUTANEOUSLY FOUR TIMES ACTIVE A DAY FOR USE WITH PEN DEVICE SEMAGLUTIDE 2MG/0.75ML INJ PEN 3ML INJECT 2MG ACTIVE SUBCUTANEOUSLY ONCE A WEEK FOR TYPE 2 DIABETES MELLITUS SILDENAFIL CITRATE 100MG TAB TAKE ONE TABLET BY MOUTH ONCE ACTIVE DAILY NEEDED TAKE 1 HOUR PRIOR TO SEXUAL ACTIVITY VALSARTAN 320MG TAB TAKE ONE TABLET BY MOUTH ONCE DAILY ACTIVE Non-VA FLUTICASONE NASAL SOLN,NASAL INTO EACH NOSTRIL ACTIVE MEDICATION RECONCILIATION:done BLOOD GLUCOSE MONITORING on 11/28/22: Pt's verbal report FBG: high in 200's Midday: 160-180mg/dl Eveninmg/dl Bedtime: 180-300's mg/dl typically below 250mg/dl 12/29/22: pt did not have the glucometer on him 01/09/23 average: 174 mg/dl January 03January 09 >240mg/dl 8% 181-240 32% 70-180 60% <70 0% pt had two lows 55 and 69- in middle of the night 154 total scan 22 scans/day 93% of sensor data captured. 01/12/23 average: 178 mg/dl January 03January 09 >240mg/dl 6% 181-240 37% 70-180 57% <70 0% pt had two lows 55 and 69- in middle of the night 24 scans/day 93% of sensor data captured. 01/30/23: 7 day av mg/dl 2% VERY HIGH 24% HIGH 72% TARGET RANGE 1% LOW 1% VERY LOW LOW GLUCOSE EVENTS: 2; AVG DURATION: 75 MIN % SENSOR IS ACTIVE: 93% AVERAGE SCANS/VIEWS: 02/20/23: 14 day av mg/dl 7% VERY HIGH 51% HIGH 42% TARGET RANGE 1% LOW 1% VERY LOW LOW GLUCOSE EVENTS: 0 % SENSOR IS ACTIVE: 79% AVERAGE SCANS/VIEWS: 04/24/23: TIME REPORT: 04/08/23- 04/21/23 14 day av mg/dl 16% VERY HIGH 61% HIGH 23% TARGET RANGE 0% LOW 0% VERY LOW LOW GLUCOSE EVENTS: 0 % SENSOR IS ACTIVE: 83% AVERAGE SCANS/VIEWS: 05/31/23: pt is not using ugo 2 and did not bring the glucose meter to the visit 06/27/23 ugo 3 upload 7 day av mg/dl 16% VERY HIGH 43% HIGH 41% TARGET RANGE 0% LOW 0% VERY LOW LOW GLUCOSE EVENTS: 0 % time sensor active: 90% 08/07/23 ugo 3 upload 7 day av mg/dl 16% VERY HIGH 43% HIGH 53% TARGET RANGE 1% LOW 1% VERY LOW LOW GLUCOSE EVENTS: 6; avg duration: 54 minutes % time sensor active: 90% 10/02/23 ugo 3 upload from 09/03/23- 09/16/23 7 day av mg/dl 19% VERY HIGH 49% HIGH 32% TARGET RANGE 0% LOW 0% VERY LOW LOW GLUCOSE EVENTS: 6; avg duration: 54 minutes % time sensor active: 90% BG range reported on 10/02/23: 138-168mg/dl; w/ morning fasting BG in 160's 10/27/23: pt was not wearing sensor, did not bring the meter to the visit Date: 11/13/23 Dexcom G7 7 day av mg/dl 6% VERY HIGH 29% HIGH 64% IN RANGE <1% LOW <1 VERY LOW Date: 11/28/23 Dexcom G7 7 day av mg/dl 6% VERY HIGH 30% HIGH 66% IN RANGE <1% LOW <1* VERY LOW Date: 03/01/24 Dexcom G7 14 day av mg/dl 20% VERY HIGH 64% HIGH 16% IN RANGE 0% LOW 0% VERY LOW days with CGM data: 79% Date: 03/01/24: BG meter: fasting BG av mg/dl; n=11; range: 166-202mg/dl Before lunch avmg/dl; n=6; range: 155-279 mg/dl Bedtime avmg/dl;n =13; range: 165-292mg/dl invitation to dexcom clarity was sent on 11/10/23 to: [email or web address] NUTRITION: Patient eats on avg. 2-3 x day: Diet Patterns: B: Srambled eggs w/ cheddar cheese, toast, usually multi-grain bread turkey protein (4) + 10 ounce glass tomato juice, scrambled egg + cheese + 2 slices flatbread + butter or yogurt + blueberries or muffin 1-2/week or cereal or amrit donuts coffee or grain muffin; munguia egg and cheese w/ coffee L: skips or low sodium tomato soup + grilled cheese w/ multigrain bread usually brings can of soup and heats it up at work in microwave D: urdu fries and chicken nuggetts; soup - canned, 28grams of carbs varies; chili + flatbread or pizza (once/week) Snacks: milk at night (trying to cut back) 30 oz- drinks now more than 1 quart/day ; grapes - when he sits at night time he snacks on it - 15 grapes [id number] Drinks: increased water intake, milk (trying to cut back); pt drinks ~ 1/2 gallon but switching to milk substituie Exercise: decreased with stressors; previously: - Walks 1-4 mile/day with dog - Wall push ups (10 minutes/day; 2-3x/day) - 13 stairs up/down 6x/day - Mows lawn & works in garden weight stable 177-183 lbs HYPOGLYCEMIC Events: 0 in the last 2 weeks Hypoglycemia recognition & treatment reviewed: Yes EtOH/Illicit drugs: Alcohol: denies Tobacco: denies Other: - Denies personal or fhx thyroid cancer or MENS2 - Denies hx pancreatitis Personal Goals: - Get BG under control - Lose weight Assessment/Plan: Per prev; Reviewed the most recent upload w/ . Pt's BG avg went down. The trend however is highly inconsistent. Pt did meet w/ the mattress stuffer Dayday . He will start applying carb count to the ICR. Recommended to strengthen carb ratios and increase dose of insulin glargine - pt declined at this time. He wants to work on carb counting /nutrition first. Reviewed hyoglycemia management and proper treatment. f/up in February in person. Date: 03/01/24: Reviewed the BG pattern. Time in target reduced to 16%. At this time recomend to titrate insulin glargine. Also strengthen ICR w/ dinner meal. Pt may be a good candidate for M[place]jarno once drug shortage is resolved. f/up in June, pt to repeat labs today. DIABETES A1c is ABOVE goal of <7% - Medication management Diabetes -Increase Insulin novolog per ICR to 1:7 before breakfast and lunch; and 1:9 at dinner meal michaelow a meal dose calculator* provided at the previous visit ISF of 1:28 for BG >130 mg/dl pre meal -Increase Insulin glargine (Semglee) to 11 units daily hs @10 PM *If BG continue to run >130mg/dl fasting increase to 10 units daily -C/t semaglutide 2mg once weekly (Mondays) - Reviewed [place] lab results - Monitor for s/sx hypoglycemia and contact clinic if BG consistently <70mg/dL - Healthy dietary and lifestyle modifications encouraged - c/t w/ lifestyle changes - Repeat A1c:prior to next visit - [facility]ed [facility] lab results - Monitor for s/sx hypoglycemia and contact clinic if BG consistently <70mg/dL - Healthy dietary and lifestyle modifications encouraged - to c/t to cut down on milk intake and reverting nutrition to previous, more balanced diet. - Repeat A1c: 11/2022 HTN: Followed by [facility]; on ARB and ASA 81mg/day. Defer to PCP. 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 If he has any questions, concerns, or changes in current health status he will call or come [facility] to the [facility]. 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
--- OUTSIDE RECORDS SUMMARY | 2024-08-21 23:27 | XMS_ITS ---
Author Name [place] Organization [place] Address [address] [place] [address] Care Team Providers Care Warehouse Handler Name Role Phone MARIIA BROUSSARD Primary Care [...] Patient's Relationship to Policy [employer] ([id number]) PRESCRIPT ION [facility] Mar 11, 2018 [id number] [phone] MADAI DELUNA OTHER RELATIONSHIP [facility] PREFERRED PROVIDER ORGANIZAT ION (PPO) Jun 11, 2011 [id number] MADAI DELUNA PATIENT [facility] [facility] (WNR) MEDICARE ADVANTAGE [facility] (WNR) Sep 11, 2022 [id number] [phone] [place] PATIENT MEDICARE (WNR) MEDICARE (M) PART A January 10, 2012 PART A [id number] MI[place]IE GILL PATIENT MEDICARE (WNR) MEDICARE (M) PART B January 10, 2012 PART B [id number] GILL DELUNA PATIENT MEDICARE (WNR) MEDICARE (M) PART A January 10, 2012 PART A [id number] GILL DELUNA PATIENT UNICARE PREFERRED PROVIDER ORGANIZAT ION (PPO) UN[place] RE STATE INDE* * Mar 11, 2015 [id number] MADAI DELUNA [facility] (WNR) MEDICARE ADVANTAGE [facility] (WNR) Mar 11, 2021 [id number] GILL DELUNA PATIENT [facility] (WNR) MEDICARE ADVANTAGE [facility] (WNR) Sep 11, 2021 [id number] [phone] GILL DELUNA PATIENT Selected Encounter This section includes the information on record at [place] for the Encounter. Date/Time Encounter Type Encounter Description Reason Pro vider Source Mar 26, 2024 06:28 AM Outpatient Encounter PRIMARY CARE/MEDICINE IHE Encounter Template [...] - MEDICINE [place] [facility] Jun 11, 2024 08:30 AM [facility]ORY [facility]ICINE [facility] Jun 18, 2024 02:15 PM [facility]ORY - MEDICINE [facility] Jun 20, 2024 10:45 AM [facility]ATORY - MEDICINE [facility] Jul 03, 2024 09:30 AM AMBULATORY - MEDICINE [place] [facility] Jul 16, 2024 09:40 AM AMBULATORY - MEDICINE [place] [facility] Jul 31, 2024 02:00 PM AMBULATORY - MEDICINE [place] [facility] Aug 16, 2024 11:00 AM AMBULATORY - MEDICINE [place] [facility] Aug 22, 2024 01:00 PM [facility] Aug 26, 2024 03:30 PM AMBULATORY - MEDICINE [facility] Active, Pending, and Scheduled Orders This section includes a listing of several types of active, pending, and scheduled orders, including clinic medications orders, diagnostic test orders, procedure orders and consult orders; where the start date of the order is 45 days before the date of the Encounter or 45 days after the date of theEncounter. The data comes from all [place] treatment facilities. Test Date/Time Test Type Test Details Facility Name May 03, 2024 03:01 PM Consult Order VISN 1 [facility] OUTPT IFC CT Cons Mechanical Laboratory Technician's [facility] May 09, 2024 10:35 AM Consult Order COMMUNITY CARE-CARDIOLOGY Cons Mechanical Laboratory Technician's [facility] Lab Results: +/- 30 days [...] Range Comment Mar 01, 2024 10:53 AM [facility] HEMOGLOBIN A1C PANEL Specimen Type: BLOOD [...] Mar 01, 2024 10:14 AM Reporting Lab: [address] [address] Performing Lab: [address] [address] HEMOGLOBIN A1C 7.8 H 4.0-5.6 Mar 01, 2024 10:53 AM [facility] LIPID PANEL FASTING Specimen Type: SERUM No comment entered. Ordering Provider: ARMSTRONG,BRANDON A A Report Released Date/Time: Mar 01, 2024 10:33 AM Reporting Lab: [address] [address] Performing Lab: [address] [address] CHOLESTEROL 117 mg/dL TRIGLYCERIDE 94 mg/dL 0-150 LDL calculated 54 mg/dL 0-129 CHOL/HDL 2.7 HDL CHOLESTEROL 44 mg/dL 40-60 Mar 01, 2024 10:53 AM [facility] MICROALBUMIN CREATININE RATIO PANEL Specimen Type: URINE No comment entered. Ordering Provider: BRANDON ARMSTRONG Report Released Date/Time: Mar 01, 2024 10:36 AM Reporting Lab: [address] [address] Performing Lab: [address] [address] MICROALBUMIN/C REATININE RATIO 13.2 mg/g 0-29.9 MICROALBUMIN,Q UANTITATIVE 0.7 mg/dL RR UNAVAIL CREATININE URINE 52.95 mg/dL Mar 01, 2024 10:53 AM [facility] BASIC METABOLIC PANEL (non-fasting) Specimen Type: SERUM No comment entered. Ordering Provider: BRANDON ARMSTRNOG Report Released Date/Time: Mar 01, 2024 10:14 AM Reporting Lab: [address] [address] Performing Lab: [address] [address] UREA NITROGEN 41 mg/dL H 7-25 GLUCOSE [...] VA-TOBACCO NEVER USED [place] [facility] Encounter Notes: All associated encounter notes This section contains the clinical notes associated to the Encounter. Date/Time Encounter Note(s) Provider Source Mar 27, 2024 03:52 PM ADDENDUM: LOCAL TITLE: Addendum STANDARD TITLE: ADDENDUM DATE OF NOTE: MAR 27, 2024@15:52:41 ENTRY DATE: MAR 27, 2024@15:52:42 AUTHOR: ZAID ODONNELL COSIGNER: URGENCY: STATUS: COMPLETED Spoke with . He report he had the surgery done at the [facility]. He states he stopped all his meds prior to the surgery. He self reported blood glucose to be 270 at 3:50 PM. He did not have any readings for his BP, and he said he will not be able to check it as at this time. [place] confirms he has a home BP monitor with cuff. AMSA -- Please obtain surgical records from [facility]. Thank you. /simone/ ZAID ODONNELL RN REGISTERED NURSE Signed: 03/27/2024 15:59 Receipt Acknowledged By: 03/28/2024 10:23 /siomne/ LORETA DAMICO ========= --- Original Document --- 03/26/24 PRIMARY CARE SECURE MESSAGING: ------Original Message -------- Sent: 03/25/2024 10:08 PM ET From: GILL DELUNA To: BOBOO_P [facility] Subject: Medication:resume meds good morning i had my surgery for prostate today dr Mccurdy as me to reach out to you to see when i can continue taking my meds i am currently only taking valsartan 320 mg i am currently not taking any tylenol for pain /es/ LORETA GEMINI DAMICO Signed: 03/26/2024 07:28 Receipt Acknowledged By: 03/27/2024 16:04 /es/ ABDI ALMARAZ LPN LPN * AWAITING SIGNATURE * ZAID ODONNELL 03/28/2024 ADDENDUM STATUS: UNSIGNED You may not VIEW this UNSIGNED Addendum. ZAID ODONNELL [place] [facility] [place] [facility] Mar 26, 2024 06:28 AM PRIMARY CARE Kwicr MESSAGING: LOCAL TITLE: PRIMARY CARE SECURE MESSAGING STANDARD TITLE: PRIMARY CARE SECURE MESSAGING DATE OF NOTE: MAR 26, 2024@06:28 ENTRY DATE: MAR 26, 2024@07:28:37 AUTHOR: LORETA SINGLETARY EXP COSIGNER: URGENCY: STATUS: COMPLETED PRIMARY CARE SECURE MESSAGING Has ADDENDA ------Original Message -------- Sent: 03/25/2024 10:08 PM ET From: GILL DELUNA To: BOBO,O_P [facility] Subject: Medication:resume meds good morning i had my surgery for prostate today dr Mccurdy as me to reach out to you to see when i can continue taking my meds i am currently only taking valsartan 320 mg i am currently not taking any tylenol for pain /es/ LORETA GEMINI DAMICO Signed: 03/26/2024 07:28 Receipt Acknowledged By: 03/27/2024 16:04 /simone/ ABDI ALMARAZ LPN LPN 04/06/2024 19:22 /es/ Michelle Graves RN Registered Nurse for ZAID ODONNELL 03/27/2024 ADDENDUM STATUS: COMPLETED Spoke with . He report he had the surgery done at the [facility]. He states he stopped all his meds prior to the surgery. He self reported blood glucose to be 270 at 3:50 PM. He did not have any readings for his BP, and he said he will not be able to check it as at this time. confirms he has a home BP monitor with cuff. MARGAUX -- Please obtain surgical records from [facility]. Thank you. /simone/ ZAID ODONNELL RN REGISTERED NURSE Signed: 03/27/2024 15:59 Receipt Acknowledged By: 03/28/2024 10:23 /essence DAMICO 03/28/2024 ADDENDUM STATUS: COMPLETED ARGON TESTER REQUESTED RECORDS. /essence DAMICO Signed: 03/28/2024 10:23 LORETA SINGLETARY [facility]TRL [facility]
--- OUTSIDE RECORDS SUMMARY | 2024-08-21 23:27 | XMS_ITS | Encounter Summary ---
Author Name [place] Address [address] [place] [address] Care Team Providers Care Box Order Person Name Role Phone MARIIA BROUSSARD Primary Care [...] Patient's Relationship to Policy [employer] ([id number]) PRESCRIPT ION [facility] Mar 11, 2018 [id number] MADAI DELUNA OTHER RELATIONSHIP [facility] PREFERRED PROVIDER ORGANIZAT ION (PPO) Jun 11, 2011 [id number] [phone] MADAI DELUNA PATIENT [employer] [facility] (WNR) MEDICARE ADVANTAGE [facility] (WNR) Sep 11, 2022 [id number] [phone] GILL DELUNA PATIENT MEDICARE (WNR) MEDICARE (M) PART A January 10, 2012 PART A [id number] [phone] [place] PATIENT MEDICARE (WNR) MEDICARE (M) PART B January 10, 2012 PART B [id number] GILL DELUNA PATIENT MEDICARE (WNR) MEDICARE (M) PART A January 10, 2012 PART A [id number] GILL DELUNA PATIENT UNICARE PREFERRED PROVIDER ORGANIZAT ION (PPO) UNICA RE STATE INDE* * Mar 11, 2015 [id number] MADAI DELUNA [facility] (WNR) MEDICARE ADVANTAGE [facility] (WNR) Mar 11, 2021 [id number] GILL DELUNA PATIENT [facility] (WNR) MEDICARE ADVANTAGE [facility] (WNR) Sep 11, 2021 [id number] GILL DELUNA PATIENT Selected Encounter This section includes the information on record at [place] for the Encounter. Date/Time Encounter Type Encounter Description Reason Pro vider Source Jan 08, 2024 09:45 AM Outpatient Encounter PRIMARY CARE/MEDICINE IHE Encounter [...] 15, 2024 01:40 PM AMBULATORY - [place]ICINE [place] [facility] January 22, 2024 08:30 AM [facility]ATORY - MEDICINE [facility] Mar 01, 2024 10:00 AM AMBULATORY - MEDICINE [place] [facility] May 16, 2024 11:30 AM AMBULATORY - MEDICINE [place] [facility] Jun 11, 2024 08:30 AM AMBULATORY - MEDICINE [facility] Jun 18, 2024 02:15 PM AMBULATORY - MEDICINE [facility] Jun 20, 2024 10:45 AM [facility]BULATORY - MEDICINE [facility] Jul 03, 2024 09:30 AM [facility]ULATORY - MEDICINE [facility] [place] [facility] Social History: Smoking Status (Most current) and [...] 12, 2022 03:10 PM [facility] [place] [facility] Encounter Notes: All associated encounter notes This section contains the clinical notes associated to the Encounter. Date/Time Encounter Note(s) Provider Source Jan 08, 2024 09:45 AM PRIMARY CARE Doppelgames E MESSAGING: LOCAL TITLE: PRIMARY CARE SECURE MESSAGING STANDARD TITLE: PRIMARY CARE SECURE MESSAGING DATE OF NOTE: JAN 08, 2024@09:45 ENTRY DATE: JAN 08, 2024@10:45:31 AUTHOR: LORETA SINGLETARY COSIGNER: URGENCY: STATUS: COMPLETED PRIMARY CARE SECURE MESSAGING Has ADDENDA ------Original Message ----- Sent: 01/08/2024 10:14 AM ET From: GILL DELUNA To: Katerin BROUSSARD_[facility] Subject: Medication:renew good morning I need to renew a med. It's Bethanechol 25mg RX#[id number] I called Dr Mccurdy's office and got a recording that said to call my pharmacy but the [place] is my pharmacy thank you /simone/ LORETA DAMICO Signed: 01/08/2024 10:45 Receipt Acknowledged By: 01/08/2024 14:59 /simone/ KYLER DURON RN REGISTERED NURSE 01/09/2024 12:18 /simone/ ABDI ALMARAZ LPN LPN 01/08/2024 ADDENDUM STATUS: COMPLETED Response sent via secure messaging. /essence DURON RN REGISTERED NURSE Signed: 01/08/2024 14:58 LORETA SINGLETARY [place] [facility] [place] [facility]
--- OUTSIDE RECORDS SUMMARY | 2024-08-21 23:27 | XMS_ITS | Encounter Summary ---
Author Name [place] Address [address] [place] [address] Care Team Providers Care Machine Sand Mixer Name Role Phone MARIIA BROUSSARD Primary Care [...] Patient's Relationship to Policy [employer]IP[employer] ([id number]) PRESCRIPT ION [facility] Mar 11, 2018 [id number] MADAI DELUNA OTHER RELATIONSHIP [facility] PREFERRED PROVIDER ORGANIZAT ION (PPO) Jun 11, 2011 [id number] [phone] MADAI DELUNA PATIENT [employer]NA [facility] (WNR) MEDICARE ADVANTAGE [facility] (WNR) Sep 11, 2022 [id number] [phone] GILL DELUNA PATIENT MEDICARE (WNR) MEDICARE (M) PART A January 10, 2012 PART A [id number] [phone] [place] PATIENT MEDICARE (WNR) MEDICARE (M) PART B January 10, 2012 PART B [id number] [id number] GILL DELUNA PATIENT MEDICARE (WNR) MEDICARE (M) PART A January 10, 2012 PART A [id number] GILL DELUNA PATIENT [employer] PREFERRED PROVIDER ORGANIZAT ION (PPO) CRISTHIAN RE STATE THUYE* * Mar 11, 2015 [id number] MADAI DELUNA [facility] (WNR) MEDICARE ADVANTAGE [facility] (WNR) Mar 11, 2021 [id number] GILL DELUNA PATIENT [facility] (WNR) MEDICARE ADVANTAGE [facility] (WNR) Sep 11, 2021 [id number] [phone] GILL DELUNA PATIENT Selected Encounter This section includes the information on record at [place] for the Encounter. Date/Time Encounter Type Encounter Description Reason Pro vider Source January 27, 2024 12:00 PM Outpatient Encounter COMMUNITY CARE CONSULT IHE Encounter Template Text not used by [place] Plan of Treatment: Future Appointments (+ 6 months) and Future Tests (+/- 45 days) The Plan of Treatment section includes future care activities for the patient from all [place] treatmentfacilities. This section includes future appointments and future orders which are active, pending or scheduled. Future Appointments This section includes appointments that were scheduled to occur 6 months from the date of the Encounter, up to a maximum of 20 appointments. The data comes from all [place] treatment facilities. Appointment Date/Time Appointment Type Appointme nt Facility Name Mar 01, 2024 10:00 AM AMBULATORY - [place]ICINE [place] [facility] May 16, 2024 11:30 AM AMBULATORY [place]ICINE [place] [facility] Jun 11, 2024 08:30 AM [facility] Jun 18, 2024 02:15 PM [facility] Jun 20, 2024 10:45 AM [facility] Jul 03, 2024 09:30 AM AMBULATORY - [place]ICINE [place] [facility] Jul 16, 2024 09:40 AM [facility]ULATORY - [facility]ICINE [facility] Social History: Smoking Status (Most current) and Tobacco Use (All prior to encounter date) This section includes the most current, and the historical, smoking and tobacco- related health factors from the [place] facility where the Encounter took place. Current Smoking Status This section includes the most current smoking, or tobacco-related health factor, from the [place] facility where the Encounter took place. Date/Time Current Smoking Status Comment Facil gonzalezy Dec 12, 2022 03:10 PM VA-TOBACCO NEVER USED [facility] Encounter Notes: All associated encounter notes This section contains the clinical notes associated to the Encounter. Date/Time Encounter Note(s) Provider Source January 27, 2024 12:00 PM NONVA CONSULT: LOCAL TITLE: COMMUNITY CARE-CONSULT RESULT NOTE STANDARD TITLE: NONVA CONSULT DATE OF NOTE: JANUARY 27, 2024@12:00 ENTRY DATE: FEBRUARY 07, 2024@08:18:46 AUTHOR: JUSTICE GOMES EXP COSIGNER: URGENCY: STATUS: COMPLETED VistA Imaging - Scanned Document BUNNY MCKEON PHD-MENTAL HEALTH NOTES SCANNED DOCUMENT SIGNATURE NOT REQUIRED Electronically Filed: 02/07/2024 by: JUSTICE GOMES SALES MARKETING MANAGER JUSTICE GOMES [facility]
--- OUTSIDE RECORDS SUMMARY | 2024-08-21 23:28 | XMS_ITS | Encounter Summary ---
Author Name [facility] [place] Organization [place] Address [address] [place] [address] Care Team Providers Care Care Connector Name Role Phone MARIIA BROUSSARD Primary Care [...] Patient's Relationship to Policy Mancera EXPRESS SCRIPTS ([id number]) PRESCRIPT ION [facility] Mar 11, 2018 [id number] MADAI DELUNA OTHER RELATIONSHIP [facility] PREFERRED PROVIDER ORGANIZAT ION (PPO) Jun 11, 2011 [id number] MADAI DELUNA PATIENT HUMANA [facility] (WNR) MEDICARE ADVANTAGE [facility] (WNR) Sep 11, 2022 [id number] [phone] [place] PATIENT MEDICARE (WNR) MEDICARE (M) PART A January 10, 2012 PART A [id number] [phone] MIKIE GILL PATIENT MEDICARE (WNR) MEDICARE (M) PART B January 10, 2012 PART B [id number] GILL DELUNA PATIENT MEDICARE (WNR) MEDICARE (M) PART A January 10, 2012 PART A [id number] GILL DELUNA PATIENT UNICARE PREFERRED PROVIDER ORGANIZAT ION (PPO) [place] RE STATE INDE* * Mar 11, 2015 [id number] MADAI DELUNA [facility] (WNR) MEDICARE ADVANTAGE [facility] (WNR) Mar 11, 2021 [id number] GILL DELUNA PATIENT WELLCARE [facility] (WNR) MEDICARE ADVANTAGE [facility] (WNR) Sep 11, 2021 [id number] [phone] GILL DELUNA PATIENT Selected Encounter This section includes the information on record at [place] for the Encounter. Date/Time Encounter Type Encounter Description Reason Pro vider Source Nov 09, 2023 03:33 PM Outpatient Encounter COMMUNITY CARE CONSULT IHE Encounter Template Text not used by AL Plan of Treatment: Future Appointments (+ 6 months) and Future Tests (+/- 45 days) The Plan of Treatment section includes future care activities for the patient from all [place] treatmentfacilities. This section includes future appointments and future orders which are active, pending or scheduled. Future Appointments This section includes appointments that were scheduled to occur 6 months from the date of the Encounter, up to a maximum of 20 appointments. The data comes from all [place] treatment facilities. Appointment Date/Time Appointment Type Appointme nt Facility Name Nov 10, 2023 01:15 PM AMBULATORY - MEDICINE [place] [facility] Nov 13, 2023 12:00 PM AMBULATORY - MEDICINE [place] [facility] [place] [place] [facility] Nov 20, 2023 11:00 AM AMBULATORY - MEDICINE [place] [facility] [place] [place] [facility] Nov 27, 2023 11:00 AM AMBULATORY - MEDICINE [place] [facility] [place] [place] [facility] Nov 28, 2023 11:00 AM AMBULATORY - MEDICINE [place] [facility] [place] [facility] Dec 04, 2023 01:00 PM AMBULATORY - NONE [place] [place] [facility] Dec 11, 2023 11:00 AM AMBULATORY - MEDICINE [place] [facility] Dec 12, 2023 09:00 AM AMBULATORY - MEDICINE [place] [facility] [place] [place] [facility] January 15, 2024 01:40 PM AMBULATORY - MEDICINE [facility] January 22, 2024 08:30 AM AMBULATORY - MEDICINE [facility] Mar 01, 2024 10:00 AM AMBULATORY - MEDICINE [facility] Lab Results: +/- 30 days of the encounter This section includes the Chemistry and Hematology Lab Results on record with [place] for the patient. Radiology Reports and Pathology Reports are provided separately, in subsequent sections. Lab Results This section contains the Chemistry/Hematology Results that were resulted 30 days before or 30 daysafter the date of the Encounter. Date/Time Source Result Type Result - Unit Interpretation Reference Range Comment Nov 02, 2023 12:00 AM ORANGE OCCULT BLOOD FIT X1 SCREEN(IN-HOUSE) Sp ecimen Type: FECES No comment entered. Ordering Provider: MARIIA CABRAL Report Released Date/Time: Oct 27, 2023 12:56 PM Reporting Lab: [facility] [address] [facility] [address] Performing Lab: [address] [address] OCCULT BLOOD (FIT)#1 OF 1 Negative NEG Social History: Smoking Status (Most current) and Tobacco Use (All prior to encounter date) This section includes the most current, and the historical, smoking and tobacco- related health factors from the [place] facility where the Encounter took place. Current Smoking Status This section includes the most current smoking, or tobacco-related health factor, from the [place] facility where the Encounter took place. Date/Time Current Smoking Status Comment Nadine jose Dec 12, 2022 03:10 PM VA-TOBACCO NEVER USED [facility] Encounter Notes: All associated encounter notes This section contains the clinical notes associated to the Encounter. Date/Time Encounter Note(s) Provider Source Nov 09, 2023 03:33 PM NONVA NOTE: LOCAL TITLE: [facility] SELF PRESENTING CARE COORD PLAN STANDARD TITLE: NONVA NOTE DATE OF NOTE: NOV 09, 2023@15:33 ENTRY DATE: NOV 09, 2023@15:33:58 AUTHOR: BACON,SHAHBAZ STEFANIE EXP COSIGNER: URGENCY: STATUS: COMPLETED Emergency Notification Intake Date Presenting to the Facility: Sep Method of Contact: Notified from ECR worklist Notification ID: [id number] [facility] Referral #: [facility] [place] Name: Hospital: [facility] Address: City: [place] State: [place] Zip Code: Phone : Community Facility Point of Contact: Name: Horace Phone: Chief complaint: High blood pressure Primary Diagnosis: Disposition Discharged Date of discharge: Sep Discharge to Comment: ER Only /simone/ SHAHBAZ DAMICO Signed: 11/09/2023 15:36 Receipt Acknowledged By: 11/15/2023 15:32 /es/ Marybeth Blanchard RN-BS [employer] Director SHAHBAZ BACON [place]
--- OUTSIDE RECORDS SUMMARY | 2024-08-21 23:28 | XMS_ITS | Encounter Summary ---
Author Name Department [place] Address [address] [place] [address] Care Team Providers Care Wood Tank Builder Name Role Phone MARIIA BROUSSARD Primary Care [...] Patient's Relationship to Policy [employer] EXPRESS SCRIPTS ([id number]) PRESCRIPT ION [facility] Mar 11, 2018 [id number] [phone] MADAI DELUNA OTHER RELATIONSHIP [facility] PREFERRED PROVIDER ORGANIZAT ION (PPO) Jun 11, 2011 [id number] MADAI DELUNA PATIENT HUMANA [facility] (WNR) MEDICARE ADVANTAGE [facility] (WNR) Sep 11, 2022 [id number] [phone] GILL DELUNA PATIENT MEDICARE (WNR) MEDICARE (M) PART A January 10, 2012 PART A [id number] [phone] MIKIE GILL PATIENT MEDICARE (WNR) MEDICARE (M) PART B January 10, 2012 PART B [id number] [phone] GILL DELUNA PATIENT MEDICARE (WNR) MEDICARE (M) PART A January 10, 2012 PART A [id number] [phone] GILL DELUNA PATIENT UNICARE PREFERRED PROVIDER ORGANIZAT ION (PPO) [place] RE STATE INDE* * Mar 11, 2015 [id number] MADAI DELUNA [facility] (WNR) MEDICARE ADVANTAGE [facility] (WNR) Mar 11, 2021 [id number] GILL DELUNA PATIENT WELLCARE [facility] (WNR) MEDICARE ADVANTAGE [facility] (WNR) Sep 11, 2021 [id number] GILL DELUNA PATIENT Selected Encounter This section includes the information on record at [place] for the Encounter. Date/Time Encounter Type Encounter Description Reason Pro vider Source Nov 15, 2023 12:39 PM Outpatient Encounter PRIMARY CARE/MEDICINE IHE Encounter Template Text not used by [place] Plan of Treatment: Future Appointments (+ 6 months) and Future Tests (+/- 45 days) The Plan of Treatment section includes future care activities for the patient from all [place] treatmentfacilities. This section includes future appointments and future orders which are active, pending or scheduled. Future Appointments This section includes appointments that were scheduled to occur 6 months from the date of the Encounter, up to a maximum of 20 appointments. The data comes from all [place] treatment facilities. Appointment Date/Time Appointment Type Appointme nt Facility Name Nov 20, 2023 11:00 AM AMBULATORY - MEDICINE [place] [facility] Nov 27, 2023 11:00 AM AMBULATORY - MEDICINE [place] [facility] [place] [facility] Nov 28, 2023 11:00 AM AMBULATORY - MEDICINE [place] [facility] [place] [facility] Dec 04, 2023 01:00 PM AMBULATORY - NONE [place] [facility] Dec 11, 2023 11:00 AM AMBULATORY - MEDICINE [place] [facility] [place] [facility] Dec 12, 2023 09:00 AM AMBULATORY - MEDICINE [place] [facility] January 15, 2024 01:40 PM AMBULATORY - MEDICINE [place] [facility] January 22, 2024 08:30 AM AMBULATORY - MEDICINE [facility] Mar 01, 2024 10:00 AM AMBULATORY - MEDICINE [facility] May 16, 2024 11:30 AM AMBULATORY - MEDICINE [facility] Lab Results: +/- 30 days of the encounter This section includes the Chemistry and Hematology Lab Results on record with [place] for the patient. Radiology Reports and Pathology Reports are provided separately, in subsequent sections. Lab Results This section contains the Chemistry/Hematology Results that were resulted 30 days before or 30 daysafter the date of the Encounter. Date/Time Source Result Type Result - Unit Interpretation Reference Range Comment Nov 02, 2023 12:00 AM [place] OCCULT BLOOD FIT X1 SCREEN(IN-HOUSE) Sp ecimen Type: FECES No comment entered. Ordering Provider: MARIIA CABRAL Report Released Date/Time: Oct 27, 2023 12:56 PM Reporting Lab: [address] [address] Performing Lab: [address] [address] OCCULT BLOOD (FIT)#1 OF 1 Negative NEG Social History: Smoking Status (Most current) and Tobacco Use (All prior to encounter date) This section includes the most current, and the historical, smoking and tobacco- related health factors from the [place] facility where the Encounter took place. Current Smoking Status This section includes the most current smoking, or tobacco-related health factor, from the [place] facility where the Encounter took place. Date/Time Current Smoking Status Comment Nadine jose Dec 12, 2022 03:10 PM VA-TOBACCO NEVER USED [facility] Encounter Notes: All associated encounter notes This section contains the clinical notes associated to the Encounter. Date/Time Encounter Note(s) Provider Source Nov 15, 2023 12:39 PM PRIMARY CARE SECUR E MESSAGING: LOCAL TITLE: PRIMARY CARE SECURE MESSAGING STANDARD TITLE: PRIMARY CARE SECURE MESSAGING DATE OF NOTE: NOV 15, 2023@12:39 ENTRY DATE: NOV 15, 2023@12:39:55 AUTHOR: LORETA SINGLETARY EXP COSIGNER: URGENCY: STATUS: COMPLETED PRIMARY CARE SECURE MESSAGING Has ADDENDA ------Original Message ----- Sent: 11/15/2023 12:17 PM ET From: GILL DELUNA To: Katerin BROUSSARD_[facility] Subject: Medication:question on new med seen doctor hernan on monday. he started me on new med call Bethanechol, 25 mg..do I continue to take finasride or discontinue it? I tried to call his office but the numbers I called are not in service. can you help? thank you ed [phone] /simone/ LORETA DAMICO Signed: 11/15/2023 12:39 Receipt Acknowledged By: 11/15/2023 13:43 /simone/ ESTHELA MORTON RN REGISTERED NURSE for KYLER DURON 11/20/2023 09:38 /es/ ABDI ALMARAZ LPN LPN 11/15/2023 ADDENDUM STATUS: COMPLETED Left a VM for Dr. Mccurdy's nurse to clarify if the needs to continue taking Finasteride and to have the last office note faxed to the clinic. /simone/ ESTHELA MORTON RN REGISTERED NURSE Signed: 11/15/2023 13:44 11/17/2023 ADDENDUM STATUS: COMPLETED Spoke with who reports he made contact with Dr. Lew's office and was instructed to continue to take finasteride as prescribed. /simone/ KAVITHA Albert, RN [facility]-Home Telehealth Licensed Loan Officer Signed: 11/17/2023 17:21 LOR[facility]A SINGLETARY [place] [facility]
--- OUTSIDE RECORDS SUMMARY | 2024-08-21 23:28 | XMS_ITS ---
[place] MEDICAL NUTRITION INDIV IN [place] Encounter Summary Created on: August 21, 2024 GILL DELUNA : 1945 Sex: Male Author Name Department [place] Organization [place] Address [address] [place] [address] Care Team Providers Care Shrimp Picker Name Role Phone MARIIA BROUSSARD Primary Care [...] Patient's Relationship to Policy [employer] EXPRESS SCRIPTS ([id number]) PRESCRIPT ION [facility] Mar 11, 2018 [id number] [phone] MADAI DELUNA OTHER RELATIONSHIP [facility] PREFERRED PROVIDER ORGANIZAT ION (PPO) Jun 11, 2011 [id number] MADAI DELUNA PATIENT HUMANA [facility] (WNR) MEDICARE ADVANTAGE [facility] (WNR) Sep 11, 2022 [id number] [phone] [place] PATIENT MEDICARE (WNR) MEDICARE (M) PART A January 10, 2012 PART A [id number] [phone] MIKIE GILL PATIENT MEDICARE (WNR) MEDICARE (M) PART B January 10, 2012 PART B [id number] [phone] MIKIE GILL PATIENT MEDICARE (WNR) MEDICARE (M) PART A January 10, 2012 PART A [id number] [phone] GILL DELUNA PATIENT UNICARE PREFERRED PROVIDER ORGANIZAT KIANNA (PPO) [place]RIST[place]AN RE STATE INDE* * Mar 11, 2015 [id number] MADAI DELUNA [facility] (WNR) MEDICARE ADVANTAGE [facility] Mar 11, 2021 [id number] [phone] GILL DELUNA PATIENT WELLCARE [facility] (WNR) MEDICARE ADVANTAGE [facility] (R) Sep 11, 2021 [id number] [phone] GILL DELUNA PATIENT Selected Encounter This section includes the information on record at [place] for the Encounter. Date/Time Encounter Type Encounter Description Reason Provider Source Dec 04, 2023 01:00 PM MEDICAL NUTRITION INDIV IN NUTRITION/DIETETI CS-INDIVIDUAL ICD-10-CM E11.9 Type 2 diabetes mellitus without complications DIONISIO OBRIEN [place] Encounter Template Text not used by [place] Assessments - Encounter Diagnoses This section includes the primary and secondary diagnoses documented for the Encounter. Date/Time Primary/Secondary Diagnosis Diagnosis Name Provider Source Dec 06, 2023 08:26 AM PRIMARY Type 2 diabetes mellitus without complications DIANA OBRIEN Dec 06, 2023 08:26 AM SECONDARY Body mass index [BMI] 28.0-28.9, adult DIANA OBRIEN Dec 06, 2023 08:26 AM SECONDARY Dietary counseling and surveillance DIANA OBRIEN Dec 06, 2023 08:26 AM SECONDARY Overweight DIANA OBRIEN Plan of Treatment: Future Appointments (+ 6 months) and Future Tests (+/- 45 days) The Plan of Treatment section includes future care activities for the patient from all [place] treatmentfacilities. This section includes future appointments and future orders which are active, pending or scheduled. Future Appointments This section includes appointments that were scheduled to occur 6 months from the date of the Encounter, up to a maximum of 20 appointments. The data comes from all [place] treatment facilities. Appointment Date/Time Appointment Type Appointme nt Facility Name Dec 11, 2023 11:00 AM AMBULATORY - MEDICINE NM C NTRL TRN [facility] Dec 12, 2023 09:00 AM AMBULATORY - MEDICINE [place] [facility] January 15, 2024 01:40 PM AMBULATORY - MEDICINE [place] C [place] [facility] January 22, 2024 08:30 AM AMBULATORY - MEDICINE [facility] Mar 01, 2024 10:00 AM AMBULATORY - MEDICINE [facility] May 16, 2024 11:30 AM AMBULATORY - MEDICINE NM C NTRL WSN [facility] Social History: Smoking Status (Most current) and Tobacco Use (All prior to encounter date) This section includes the most current, and the historical, smoking and tobacco- related health factors from the [place] facility where the Encounter took place. Current Smoking Status This section includes the most current smoking, or tobacco-related health factor, from the [place] facility where the Encounter took place. Date/Time Current Smoking Status Comment Nadine roth Jul 06, 2021 09:30 AM VA-TOBACCO NEVER USED [place] Tobacco Use History This section includes a history of the smoking, or tobacco-related health factors, that were collected on or before the date of the Encounter. The data comes from the [place] facility where the Encounter took place. Date/Time Smoking Status/Tobacco Use Comment F acility Apr 30, 2020 01:00 PM VA-TOBACCO FORMER USER [place] Apr 30, 2020 01:00 PM VA-TOBACCO QUIT 15 YRS OR MORE [place] January 09, 2019 02:16 PM VA-TOBACCO FORMER USER [place] January 09, 2019 02:16 PM VA-TOBACCO QUIT 15 YRS OR MORE [place] Feb 13, 2018 11:05 AM QUIT TOBACCO USE > 7 YEARS AGO [place] Feb 28, 2017 01:42 PM LIFETIME NON-TOBACCO USER quit 1976 [place] Nov 17, 2015 09:53 AM QUIT TOBACCO USE > 7 YEARS AGO [place] February 08, 2002 03:04 PM QUIT TOBACCO USE > 7 YEARS AGO Patient states he smoked from age [age] and quit. [place] Aug 10, 2001 03:42 PM NON-TOBACCO USER Stopped tobacco 35 years ago [place] Encounter Notes: All associated encounter notes This section contains the clinical notes associated to the Encounter. Date/Time Encounter Note(s) Provider Source Dec 04, 2023 01:00 PM NUTRITION DIETETIC S CONSULT: LOCAL TITLE: CONSULT REPORT/NUTRITION AND SURGERY TECHNICIAN STANDARD TITLE: NUTRITION DIETETICS CONSULT DATE OF NOTE: DEC 04, 2023@13:00 ENTRY DATE: DEC 05, 2023@12:22:35 AUTHOR: CAN OBRIEN COSIGNER: URGENCY: STATUS: COMPLETED Reason for Nutrition referral: Primary Diagnosis: Type II DM without complication (E11.9) Secondary Diagnosis: Dietary Surveillance and Counseling (Z71.3) Additional Secondary Diagnosis: Overweight (E66.3) Date of Nutrition Referral: 11/13/23 Referred to Nutrition Clinic By: Deisy Trujillo Date of Nutrition Visit: Nov Visit #: 1 Time Spent with Patient: 40 minutes Patient identified using the following two forms of ID: Date of , Patient Full Name NUTRITION ASSESSMENT: Client History: Medication List Reviewed Novolog 1:10 for meals and correction factor of 1:28, Nutritional/Herbal Supplements: yes Food Allergies:no Problem List Reviewed Anthropometric Measurements: Ht:65 in [165.1 cm] (12/04/2023 13:32) Wt:171.7 lb [77.88 kg] (12/04/2023 13:32) Weight History: Barton notes his weight is down recently. BMI: 28.6 IBW: 136 lb Biochemical Data/Medical Tests: Labs: LIPID PANEL TREND Collection DT Spec CHOL HDL CHO/HDL LDL-c TRIG 01/12/2023 07:44 SERUM 108 40 2.7 48 101 11/15/2022 13:53 SERUM 122 46 2.7 64 60 HEMOGLOBIN A1C; BLOOD Rubi. Date: 08/14/23 08:00 05/04/23 13:44 Test Name Result Units Range HEMOGLOBIN A1C 7.9 H 7.6 H % 4.0 - 5.6 Other Labs: Barton using Dexcom G7 sensor. 14 day average 177 GMI 7.6% 30 day average 171 GMI 7.4% BP: 132/69 (10/27/2023 11:21) Nutrition Focused Physical Findings: Appetite: Good Other issues/concerns: None Nutrition-Focused Physical Exam Reminder: A selection MUST be made in The Nutrition-Focused Physical Exam Summary section No significant physical signs of nutrient excesses or deficits Body habitus: Android Obesity Nutrition-Focused Physical Exam Summary: Based on the ASPEN/AND Malnutrition Diagnoisis Guide, it was determined that the Barton DOES NOT have malnutrition. Nutrition History: Food/Nutrition Related History: Met with who is concerned about his blood glucose and would like to lose some weight. counts carbs and is accurate in his estimation of carbs. He uses and meng to assist. He uses the carb to insulin ratio to determine novolog administration. He is not doing a correction factor before his meals. He tends to eat 2 meals per day. Mainly drinks water, 1 glass of ls tomato juice and 2 cups of coffee per day. He does the cooking and shopping. 24 hour recall: B: 1 slice of toast w/butter, coffee, ls tomato juice D: LS tomato soup, 1/2 grilled turkey cheese s/w, fairlife milk x 2 glasses. In the past 3 months, did you ever run out of food and you were not able to access more food or have the money to buy more food? No Physical Activity: walking daily NUTRITION DIAGNOSIS: Altered nutrition-related laboratory values (SPECIFY:____) related to endocrine dysfunction, overweight as evidenced by A1c >7% . NUTRITION INTERVENTION: NUTRITION EDUCATION provided on the following topic(s): Diabetic Diet (basics), Sources of Carbohydrates, Healthy Meal Planning, MOVE! program (rationale, format, content, day/time, location) Food/Drug Interactions reviewed Printed Nutrition educational materials provided during this encounter: None Food/Drug Interactions: Insulin/Potential for hypoglycemia Education Narrative: Reviewed sources of carbs and healthy meal planning. Discussed how to do a correction before meals. Barriers to Education: None Comprehension: Good Motivation: Good Goals: 1. Start to do a correction before meals. 2. Increase exercise as tolerated. NUTRITION COUNSELING: Strategies: Goal Setting, Self Monitoring, Problem Solving COORDINATION OF NUTRITION CARE: Follow-up with: [facility], PCP MONITORING/EVALUATION: 1. Follow-up visit: Jun 03, 2024 2. Monitor progress toward achievement of Nutrition Intervention Goals 3. Assess comprehension and motivation based on dietary changes made 4. Monitor progress toward achievement of Clinical Outcome Goals: Weight, Labs CLINICAL OUTCOME GOALS: Indicator A1c: Criteria: Type II DM Goal: A1c<7% by follow-up Progress: TBD at follow-up Indicator: Weight Criteria: Overweight per BMI Goal: Weight loss of 1-2/#/week toward IBW by follow-up Progress: TBD at follow-up WHOLE HEALTH WHOLE HEALTH EDUCATION Whole Health Education was provided. /simone/ CAN OBRIEN STAFF DIETITIAN Signed: 12/06/2023 08:57 CAN OBRIEN [place] [facility]
--- OUTSIDE RECORDS SUMMARY | 2024-08-21 23:28 | XMS_ITS | Encounter Summary ---
Author Name [facility] [place] Organization [place] Address [address] [place] [address] Care Team Providers Care Lawn Care Professional Name Role Phone MARIIA BROUSSARD Primary Care [...] Patient's Relationship to Policy [employer] EXPRESS SCRIPTS ([id number]) PRESCRIPT ION [facility] Mar 11, 2018 [id number] MADAI DELUNA OTHER RELATIONSHIP [facility] PREFERRED PROVIDER ORGANIZAT ION (PPO) Jun 11, 2011 [id number] MADAI DELUNA PATIENT HUMANA MCR (WNR) MEDICARE ADVANTAGE MCR (WNR) Sep 11, 2022 [id number] [phone] [place] PATIENT MEDICARE (WNR) MEDICARE (M) PART A January 10, 2012 PART A [id number] MI[place]IE [place] PATIENT MEDICARE (WNR) MEDICARE (M) PART B January 10, 2012 PART B [id number] [phone] [place]IE G[place] PATIENT MEDICARE (WNR) MEDICARE (M) PART A January 10, 2012 PART A [id number] [phone] GILL DELUNA PATIENT UNICARE PREFERRED PROVIDER ORGANIZAT KIANNA (PPO) CRISTHIAN THUYBelle* * Mar 11, 2015 [id number] MADAI DELUNA SPOUSE [facility] (WNR) MEDICARE ADVANTAGE [facility] (WNR) Mar 11, 2021 [id number] GILL DELUNA PATIENT WELLCARE [facility] (WNR) MEDICARE ADVANTAGE [facility] (WNR) Sep 11, 2021 [id number] GILL DELUNA PATIENT Selected Encounter This section includes the information on record at NH for the Encounter. Date/Time Encounter Type Encounter Description Reason Provider Source Dec 12, 2023 09:00 AM PRO PHONE CALL 11-20 MIN TELEPHONE PRIMARY CARE ICD-10-CM E11.9 Type 2 diabetes mellitus without complications DARRICK ARMSTRONG [facility] Encounter Template Text not used by [place] Assessments - Encounter Diagnoses This section includes the primary and secondary diagnoses documented for the Encounter. Date/Time Primary/Secondary Diagnosis Diagnosis Name Provider Source Dec 12, 2023 09:00 AM PRIMARY Type 2 diabetes mellitus without complications BRANDON ARMSTRONG [place] Plan of Treatment: Future Appointments (+ 6 months) and Future Tests (+/- 45 days) The Plan of Treatment section includes future care activities for the patient from all [place] treatmentfacilities. This section includes future appointments and future orders which are active, pending or scheduled. Future Appointments This section includes appointments that were scheduled to occur 6 months from the date of the Encounter, up to a maximum of 20 appointments. The data comes from all [place] treatment facilities. Appointment Date/Time Appointment Type Appointme nt Facility Name January 15, 2024 01:40 PM AMBULATORY - MEDICINE [place] [facility] [place] [facility] January 22, 2024 08:30 AM AMBULATORY - MEDICINE [place] Mar 01, 2024 10:00 AM AMBULATORY - MEDICINE [place] [facility] [place] [facility] May 16, 2024 11:30 AM AMBULATORY - MEDICINE [facility] [place] [facility] Jun 11, 2024 08:30 AM AMBULATORY - MEDICINE [place] Social History: Smoking Status (Most current) and Tobacco Use (All prior to encounter date) This section includes the most current, and the historical, smoking and tobacco- related health factors from the [place] facility where the Encounter took place. Current Smoking Status This section includes the most current smoking, or tobacco-related health factor, from the [place] facility where the Encounter took place. Date/Time Current Smoking Status Comment Nadine jose Jul 06, 2021 09:30 AM VA-TOBACCO NEVER USED [place] Tobacco Use History This section includes a history of the smoking, or tobacco-related health factors, that were collected on or before the date of the Encounter. The data comes from the [place] facility where the Encounter took place. Date/Time Smoking Status/Tobacco Use Comment F acility Apr 30, 2020 01:00 PM VA-TOBACCO FORMER USER [place] Apr 30, 2020 01:00 PM VA-TOBACCO QUIT 15 YRS OR MORE [facility] January 09, 2019 02:16 PM VA-TOBACCO FORMER USER [place] January 09, 2019 02:16 PM VA-TOBACCO QUIT 15 YRS OR MORE [place] Feb 13, 2018 11:05 AM QUIT TOBACCO USE > 7 YEARS AGO [place] Feb 28, 2017 01:42 PM LIFETIME NON-TOBACCO USER quit 1975 [place] Nov 17, 2015 09:53 AM QUIT TOBACCO USE > 7 YEARS AGO [place] February 08, 2002 03:04 PM QUIT TOBACCO USE > 7 YEARS AGO Patient states he smoked from age [age] and quit. [place] Aug 10, 2001 03:42 PM NON-TOBACCO USER Stopped tobacco 35 years ago [facility] Encounter Notes: All associated encounter notes This section contains the clinical notes associated to the Encounter. Date/Time Encounter Note(s) Provider Source Dec 12, 2023 10:25 AM PHARMACY OUTPATIEN T NOTE: LOCAL TITLE: PHARMACY CLINIC NOTE STANDARD TITLE: PHARMACY OUTPATIENT NOTE DATE OF NOTE: DEC 12, 2023@10:25 ENTRY DATE: DEC 12, 2023@10:25:28 AUTHOR: LUX ARMSTRONG COSIGNER: URGENCY: STATUS: COMPLETED Patient Name: GILL DELUNA was seen via telephone for follow-up for diabetes management treatment. : January Age: 78 Sex: MALE Race: WHITE Subjective: Pt states he is doing well. 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 Pt successfully connected [employer] to the endocrine clinic. Pt states he [...] He is not however looking forward to [facility] holidays. He continues to work- has Mondays off. Per prev: Pt was contacted for a f/up. Last 3 days sensor readings much improved without any false readings. PT is using ugo 3 now. He had appt w/ PCP yesterday. He informed the commercial underwriter he decided to stopp empagliflozin 3 weeks [...] the reader. He has contacted the provided [employer] [place] dedicated line and received several replacement sensors [...] estate. Pt is seeing MH at the NH and is grateful for that. He also [...] as instructed on 01/23/23. 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 He is glad he is on this equipment. The commercial underwriter spent close to 20 minutes trying to have pt accept the invitation without success. Both commercial underwriter and pt agreed for him to come [...] 2. Benign Prostatic Hypertrophy with Outflow Obstruction ([facility] [id number]) 3. Erectile Dysfunction ([facility] [id number]) 4. Depression ([facility] 30292039) 5. Actinic keratosis 6. Basal cell carcinoma of skin 7. Vitamin D Deficiency ([facility] 67404218) 8. Contact dermatitis 9. Space-occupying lesion of brain 10. Second degree atrioventricular block 11. Cancer screening follow up 12. Hyperglycemia due to type 2 diabetes mellitus 13. PVD-peripheral vascular disease 14. Hyperlipidemia 15. Elevated PSA 16. Epistaxis * 17. Sleep apnea (SNOMED CT 83211291) 18. Superficial basal cell carcinoma 19. Gastroesophageal reflux disease (SNOMED CT 426044200) 20. Anxiety 21. Diabetes mellitus (SNOMED CT 63428351) 22. Essential hypertension (SNOMED CT 80390427) 23. Body mass index 25-29 - overweight 24. Recurrent major depression in partial remission Objective: Diabetes Medication Regimen: -Insulin Novolog per ICR to 1:10 before breakfast and lunch; and 1:11 at dinner meal ; folow a meal dose calculator* ISF of 1:28 for BG >130 mg/dl pre meal avg 12-20 units/meals -Insulin glargine Semglee 8 units daily hs @10 PM - *decreased [...] RANGE <1% LOW <1* VERY LOW Date: 12/12/23 Dexcom G7 14 day av mg/dl 8% VERY HIGH 49% HIGH 42% IN RANGE <1% LOW <1* VERY LOW days with CGM data: 93% invitation to dexcom clarity was sent on 11/10/23 to: [email or web address] NUTRITION: Patient eats on avg. 2-3 x [...] it up at work in microwave D: russian fries and chicken nuggetts; soup - canned, [...] 2-3x/day) - 13 stairs up/down 6x/day - [employer] & works in [employer] weight stable 177-183 lbs HYPOGLYCEMIC Events: 0 in the last 2 weeks Hypoglycemia recognition & treatment reviewed: Yes EtOH/Illicit drugs: Alcohol: denies Tobacco: denies Other: - Denies personal or fhx thyroid cancer or MENS2 - Denies hx pancreatitis Personal Goals: - Get BG under control - Lose weight Assessment/Plan: Reviewed the most recent upload w/ [place]. Pt's BG avg went down. The trend however is highly inconsistent. Pt did meet w/ the music education director [place] . He will start applying carb count to the ICR. Recommended to strengthen carb ratios and increase dose of insulin glargine - pt declined at this time. He wants to work on carb counting /nutrition first. Reviewed hyoglycemia management and proper treatment. f/up in February in person. Labs prior DIABETES A1c is ABOVE goal of <7% - Medication management Diabetes -c/t Insulin novolog per ICR to 1:7 before breakfast and lunch; and 1:10 at dinner meal folow a meal dose calculator* provided at the previous visit ISF of 1:28 for BG >130 mg/dl pre meal -c/t Insulin glargine (Semglee) 8 units daily hs @10 PM *If BG continue to run >130mg/dl fasting increase to 10 units daily -C/t semaglutide 2mg once weekly (Mondays) - Reviewed [facility] lab results - Monitor [...] of Preventive Care: Most recent visit to anesthesiology technologist: 04/2022 Most recent visit to optometry: 10/2021; Diabetes mellitus without retinopathy or macular edema Clinic's Next Scheduled Follow-up: 03/01/24 f2f visit No barriers; Patient understands and agrees to current treatment plan. If he has any questions, concerns, or changes in current health status he will call or come in to the [facility]. FUTURE APPOINTMENTS: 10/09/2023 13:30 CWM/SO/CVT/MHC/IND MEASUREMENT PSYCHOLOGIST/PA 10/09/2023 13:31 CWM/SO/CVT/MHC/IND MEASUREMENT PSYCHOLOGIST/ND 11/10/2023 13:15 COM CARE-UROLOGY 01/22/2024 08:30 CWM/SO/PODIATRY/ROSS 05/16/2024 11:30 CWM/NO/DERMATOLOGY C/AM DM type is : T2D Length of Visit: 30 minutes PBM PharmD Pharmacotherapy Rem V12: PHARMACIST INTERVENTIONS: TYPE 2 DIABETES MELLITUS Medication monitoring, no dosage change required, continue to monitor and assess /es/ LUX ARMSTRONG CLINICAL IN STORE MARKETING REPRESENTATIVE Signed: 12/12/2023 10:51 Receipt Acknowledged By: 12/13/2023 19:48 /es/ MARIIA BROUSSARD MD PHYSICIAN LUX ARMSTRONG [place]
--- OUTSIDE RECORDS SUMMARY | 2024-08-21 23:28 | XMS_ITS | Encounter Summary ---
Author Name [facility] [place] [facility] [place] Organization [place] Address [address] [place] [address] Care Team Providers Care Research And Development Director Name Role Phone MARIIA BROUSSARD Primary Care [...] Patient's Relationship to Policy [employer] ([id number]) PRESCRIPT ION [facility] Mar 11, 2018 [id number] [phone] MADAI DELUNA OTHER RELATIONSHIP [facility] PREFERRED PROVIDER ORGANIZAT ION (PPO) Jun 11, 2011 [id number] MADAI DELUNA PATIENT HUMANA [facility] (WNR) MEDICARE ADVANTAGE [facility] (WNR) Sep 11, 2022 [id number] [phone] [place] PATIENT MEDICARE (WNR) MEDICARE (M) PART A January 10, 2012 PART A [id number] [phone] [place] PATIENT MEDICARE (WNR) MEDICARE (M) PART B January 10, 2012 PART B [id number] [phone] [place] PATIENT MEDICARE (WNR) MEDICARE (M) PART A January 10, 2012 PART A [id number] GILL DELUNA PATIENT UNICARE PREFERRED PROVIDER ORGANIZAT ION (PPO) CRISTHIAN [facility] THUYE* * Mar 11, 2015 [id number] MADAI DELUNA [facility] (WNR) MEDICARE ADVANTAGE [facility] (WNR) Mar 11, 2021 [id number] GILL DELUNA PATIENT WELLCARE [facility] (WNR) MEDICARE ADVANTAGE [facility] (WNR) Sep 11, 2021 [id number] MI[place]IE [place] PATIENT Selected Encounter This section includes the information on record at [place] for the Encounter. Date/Time Encounter Type Encounter Description Reason Provider Source Nov 28, 2023 08:37 AM Outpatient Encounter CLINICAL PHARMACY LUX ARMSTRONG Encounter Template Text not used by [place] Plan of Treatment: Future Appointments (+ 6 months) and Future Tests (+/- 45 days) The Plan of Treatment section includes future care activities for the patient from all [place] treatmentfacilities. This section includes future appointments and future orders which are active, pending or scheduled. Future Appointments This section includes appointments that were scheduled to occur 6 months from the date of the Encounter, up to a maximum of 20 appointments. The data comes from all [place] treatment facilities. Appointment Date/Time Appointment Type Appointme nt Facility Name Dec 04, 2023 01:00 PM AMBULATORY - NONE [facility] [place] [facility] Dec 11, 2023 11:00 AM AMBULATORY - MEDICINE [facility] [place] [facility] Dec 12, 2023 09:00 AM AMBULATORY - MEDICINE [facility] [place] [facility] January 15, 2024 01:40 PM AMBULATORY - MEDICINE [facility] [place] [place] [facility] January 22, 2024 08:30 [facility] Mar 01, 2024 10:00 AM AMBULATORY - MEDICINE [facility] [place] [facility] May 16, 2024 11:30 AM AMBULATORY - MEDICINE [place] [facility] [place] [facility] Lab Results: +/- 30 days of the encounter This section includes the Chemistry and Hematology Lab Results on record with [place] for the patient. Radiology Reports and Pathology Reports are provided separately, in subsequent sections. Lab Results This section contains the Chemistry/Hematology Results that were resulted 30 days before or 30 daysafter the date of the Encounter. Date/Time Source Result Type Result - Unit Interpretation Reference Range Comment Nov 02, 2023 12:00 AM [facility] OCCULT BLOOD FIT X1 SCREEN(IN-HOUSE) Sp ecimen Type: FECES No comment entered. Ordering Provider: MARIIA CABRAL Report Released Date/Time: Oct 27, 2023 12:56 PM Reporting Lab: [facility] [address] [id number] Performing Lab: [address] [address] OCCULT BLOOD (FIT)#1 OF 1 Negative NEG Social History: Smoking Status (Most current) and Tobacco Use (All prior to encounter date) This section includes the most current, and the historical, smoking and tobacco- related health factors from the [place] facility where the Encounter took place. Current Smoking Status This section includes the most current smoking, or tobacco-related health factor, from the [place] facility where the Encounter took place. Date/Time Current Smoking Status Comment Facil ity Dec 12, 2022 03:10 PM VA-TOBACCO NEVER USED [facility] Encounter Notes: All associated encounter notes This section contains the clinical notes associated to the Encounter. Date/Time Encounter Note(s) Provider Source Nov 28, 2023 08:37 AM PHARMACY SECURE MESSAGING: LOCAL TITLE: PHARMACY SECURE MESSAGING STANDARD TITLE: PHARMACY SECURE MESSAGING DATE OF NOTE: NOV 28, 2023@08:37 ENTRY DATE: NOV 28, 2023@09:37:01 AUTHOR: LUX ARMSTRONG COSIGNER: URGENCY: STATUS: COMPLETED ------Original Message -------- Sent: 11/26/2023 11:40 PM ET From: GILL DELUNA To: CLINICAL PHARMACY_[facility]_PHARM Subject: Medication:dangerous reading This is ed mikie 0743 last night I was awakened by the Dexcon low glucose alarm. It was 42. I checked with my manual finger stick and it was 42 I was able to get it back up. I am currently taking 16 units at night. To night I will do 8 unites can you call me. Also I needed to replace my Dexcon and the tape did not stay on Can I stop by and get a replacement tape strip? One other question. When I started out with these unites, I was eating late at night. I was also 213 lbs. My current weight is 167 lbs. Are these unites still rright for me? MY phone number is [phone] ------Original Message -------- Sent: 11/27/2023 09:31 AM ET From: DARIUS SMITH To: GILL DELUNA Subject: Medication:dangerous reading Hi Deisy Chavez is not in today, but I will make sure she sees this message as soon as she is back in office. Darius Smith Clinical Service Order Dispatcher ------Original Message -------- Sent: 11/28/2023 09:36 AM ET From: LUX ARMSTRONG To: GILL DELUNA Subject: Medication:dangerous reading HI Mr. Deluna My apology i was out yesterday I will place you on my schedule for today. If i am unable to catch you please call me back by the end of today as this matter needs to be discussed suraj zapata /simone/ LUX ARMSTRONG CLINICAL IRON CASTER Signed: 11/28/2023 09:37 LUX ARMSTRONG [place] [facility]
--- OUTSIDE RECORDS SUMMARY | 2024-08-21 23:28 | XMS_ITS | Encounter Summary ---
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 Name Role Phone MARIIA BROUSSARD Primary [...] Patient's Relationship to Policy [employer] S[employer]IP[employer] ([id number]) PRESCRIPT ION [facility] Mar 11, 2018 [id number] [phone] MADAI DELUNA OTHER RELATIONSHIP [facility] PREFERRED PROVIDER ORGANIZAT ION (PPO) Jun 11, 2011 [id number] MADAI DELUNA PATIENT [employer] [facility] (WNR) MEDICARE ADVANTAGE [facility] (WNR) Sep 11, 2022 [id number] [phone] [place] PATIENT MEDICARE (WNR) MEDICARE (M) PART A January 10, 2012 PART A [id number] MIKIE GILL PATIENT MEDICARE (WNR) MEDICARE (M) PART B January 10, 2012 PART B [id number] MI[place]IEGILL PATIENT MEDICARE (WNR) MEDICARE (M) PART A January 10, 2012 PART A [id number] [phone] MIKIE GILL PATIENT UNICARE PREFERRED PROVIDER ORGANIZAT ION (PPO) CRISTHIAN RE STATE INDE* * Mar 11, 2015 [id number] MADAI DELUNA SP[facility]SE [facility] (WNR) MEDICARE ADVANTAGE [facility] ([facility]) Mar 11, 2021 [id number] GILL DELUNA PATIENT [facility]LLCARE [facility] (WNR) MEDICARE ADVANTAGE [facility] (R) Sep 11, 2021 [id number] [phone] MIKIE GILL PATIENT Selected Encounter This section includes the information on record at [place] for the Encounter. Date/Time Encounter Type Encounter Description Reason Provider Source Nov 20, 2023 11:00 AM BIOFEEDBACK TRAIN ANY METH [facility] TREATMENT ICD-10-CM F41.9 Anxiety disorder, unspecified [employer] Encounter Template Text not used by [place] Assessments - Encounter Diagnoses This section includes the primary and secondary diagnoses documented for the Encounter. Date/Time Primary/Secondary Diagnosis Diagnosis Name Provider Source Nov 20, 2023 02:19 PM PRIMARY Anxiety disorder, unspecified KIANA SHEETS [place] Plan of Treatment: Future Appointments (+ 6 months) and Future Tests (+/- 45 days) The Plan of Treatment section includes future care activities for the patient from all [place] treatmentfacilities. This section includes future appointments and future orders which are active, pending or scheduled. Future Appointments This section includes appointments that were scheduled to occur 6 months from the date of the Encounter, up to a maximum of 20 appointments. The data comes from all [place] treatment facilities. Appointment Date/Time Appointment Type Appointme nt Facility Name Nov 27, 2023 11:00 AM AMBULATORY - MEDICINE [place] [facility] Nov 28, 2023 11:00 AM AMBULATORY - MEDICINE [place] [facility] Dec 04, 2023 01:00 PM AMBULATORY - NONE [place] [facility] Dec 11, 2023 11:00 AM AMBULATORY - MEDICINE [place] [facility] Dec 12, 2023 09:00 AM [facility] January 15, 2024 01:40 PM AM[facility]ULAT[facility] - MEDICINE [facility] [place] [facility] January 22, 2024 08:30 AM AMBULATORY - MEDICINE [facility] Mar 01, 2024 10:00 AM [facility] May 16, 2024 11:30 AM [facility] Lab Results: +/- 30 days of the encounter This section includes the Chemistry and Hematology Lab Results on record with [place] for the patient. Radiology Reports and Pathology Reports are provided separately, in subsequent sections. Lab Results This section contains the Chemistry/Hematology Results that were resulted 30 days before or 30 daysafter the date of the Encounter. Date/Time Source Result Type Result - Unit Interpretation Reference Range Comment Nov 02, 2023 12:00 AM [place] OCCULT BLOOD FIT X1 SCREEN(IN-HOUSE) Sp ecimen Type: FECES No comment entered. Ordering Provider: MARIIA CABRAL Report Released Date/Time: Oct 27, 2023 12:56 PM Reporting Lab: [facility] [address] [facility] [address] Performing Lab: [address] [address] OCCULT BLOOD (FIT)#1 OF 1 Negative NEG Social History: Smoking Status (Most current) and Tobacco Use (All prior to encounter date) This section includes the most current, and the historical, smoking and tobacco- related health factors from the [place] facility where the Encounter took place. Current Smoking Status This section includes the most current smoking, or tobacco-related health factor, from the [place] facility where the Encounter took place. Date/Time Current Smoking Status Comment [facility] Jul 06, 2021 09:30 AM IN-TOBACCO NEVER USED [place] Tobacco Use History This section includes a history of the smoking, or tobacco-related health factors, that were collected on or before the date of the Encounter. The data comes from the [place] facility where the Encounter took place. Date/Time Smoking Status/Tobacco Use Comment F acility Apr 30, 2020 01:00 PM IN-TOBACCO FORMER USER [place] Apr 30, 2020 01:00 PM IN-TOBACCO QUIT 15 YRS OR MORE [place] January 09, 2019 02:16 PM VA-TOBACCO FORMER USER [place] January 09, 2019 02:16 PM VA-TOBACCO QUIT 15 YRS OR MORE [place] Feb 13, 2018 11:05 AM QUIT TOBACCO USE > 7 YEARS AGO [place] Feb 28, 2017 01:42 PM LIFETIME NON-TOBACCO USER quit 1976 [place] Nov 17, 2015 09:53 AM QUIT TOBACCO USE > 7 YEARS AGO [place] February 08, 2002 03:04 PM QUIT TOBACCO USE > 7 YEARS AGO Patient states he smoked from age [age] and quit. [place] Aug 10, 2001 03:42 PM NON-TOBACCO USER Stopped tobacco 35 years ago [place] Encounter Notes: All associated encounter notes This section contains the clinical notes associated to the Encounter. Date/Time Encounter Note(s) Provider Source Nov 23, 2023 07:39 AM GROUP COUNSELING N OTE: [facility] TITLE: BEHAVIORAL MEDICINE - GROUP TREATMENT STANDARD TITLE: GROUP COUNSELING NOTE DATE OF NOTE: NOV 23, 2023@07:39:20 ENTRY DATE: NOV 23, 2023@07:39:20 AUTHOR: PORFIRIO SHEETS EXP COSIGNER: URGENCY: STATUS: COMPLETED Assessments were sent to the [place] via text/email. These assessments were completed by GILL DELUNA on their own device on 11/20/2023 5:06:48 PM. GENERAL ANXIETY DISORDER-7 (FORTINO-7) Patient reported being bothered by the following over the last two weeks: 1. Feeling nervous, anxious or on edge: More than half the days 2. Not being able to stop or control worrying: Several days 3. Worrying too much about different things: Several days 4. Trouble relaxing: Several days 5. Feeling restless (hard to sit still): Several days 6. Becoming easily annoyed or irritable: More than half the days 7. Afraid as if something awful might happen: Several days FORTINO-7 total score = 9 0-4=minimal symptoms 5-9=mild symptoms 10-14=moderate symptoms 15-21=severe symptoms The patient stated that the anxiety symptoms made it somewhat difficult to work, take care of things at home, or get along with others. PERCEIVED STRESS SCALE (PSS) The patient reported the following feelings and thoughts during the last month: 1. Upset because of something that happened unexpectedly: Sometimes 2. Unable to control the important things in life: Fairly often 3. Nervous and stressed : Fairly often 4. Confident about ability to handle personal problems: Sometimes 5. Bodega that things were going your way: Sometimes 6. Could not cope with all the things you had to do: Sometimes 7. Able to control irritations in life: Sometimes 8. On top of things: Sometimes 9. Angered by things outside your control: Sometimes 10. Difficulties piling up so high that could not overcome them: Very often PSS Total Score: 24 PSS scores range from 0-40. A higher score indicates more stress. DIFFICULTIES IN EMOTION REGULATION SCALE-36 (DERS-36) The patient reported that the following statements apply to them as indicated: 1. I am clear about my feelings: Sometimes (11-35%) 2. I pay attention to how I feel: Sometimes (11-35%) 3. I experience my emotions as overwhelming and out of control: Sometimes (11-35%) 4. I have no idea how I am feeling: About half the time (36-65%) 5. I have difficulty making sense out of my feelings: About half the time (36-65%) 6. I am attentive to my feelings: Sometimes (11-35%) 7. I know exactly how I am feeling: Sometimes (11-35%) 8. I care about what I am feeling: About half the time (36-65%) 9. I am confused about how I feel: About half the time (36-65%) 10. When I'm upset, I acknowledge my emotions: Sometimes (11-35%) 11. When I'm upset, I become angry with myself for feeling that way: About half the time (36-65%) 12. When I'm upset, I become embarrassed for feeling that way: Sometimes (11-35%) 13. When I'm upset, I have difficulty getting work done: About half the time (36-65%) 14. When I'm upset, I become out of control: Sometimes (11-35%) 15. When I'm upset, I believe that I will remain that way for a long time: Sometimes (11-35%) 16. When I'm upset, I believe that I'll end up feeling very depressed: Sometimes (11-35%) 17. When I'm upset, I believe that my feelings are valid and important: Sometimes (11-35%) 18. When I'm upset, I have difficulty focusing on other things: Sometimes (11-35%) 19. When I'm upset, I feel out of control: Almost never (0-10%) 20. When I'm upset, I can still get things done: Sometimes (11-35%) 21. When I'm upset, I feel ashamed with myself for feeling that way: Sometimes (11-35%) 22. When I'm upset, I know that I can find a way to eventually feel better: Sometimes (11-35%) 23. When I'm upset, I feel like I am weak: Sometimes (11-35%) 24. When I'm upset, I feel like I can remain in control of my behaviors: Sometimes (11-35%) 25. When I'm upset, I feel guilty for feeling that way: About half the time (36-65%) 26. When I'm upset, I have difficulty concentrating: About half the time (36-65%) 27. When I'm upset, I have difficulty controlling my behaviors: Sometimes (11-35%) 28. When I'm upset, I believe there is nothing I can do to make myself feel better: Sometimes (11-35%) 29. When I'm upset, I become irritated with myself for feeling that way: Sometimes (11-35%) 30. When I'm upset, I start to feel very bad about myself: About half the time (36-65%) 31. When I'm upset, I believe that wallowing in it is all I can do: Sometimes (11-35%) 32. When I'm upset, I lose control over my behaviors: Sometimes (11-35%) 33. When I'm upset, I have difficulty thinking about anything else: Sometimes (11-35%) 34. When I'm upset, I take time to figure out what I'm really feeling: Almost never (0-10%) 35. When I'm upset, it takes me a long time to feel better: Sometimes (11-35%) 36. When I'm upset, my emotions feel overwhelming: Sometimes (11-35%) Total Score (range: 36-180): 101 Nonacceptance of emotional responses (6-30): 14 Difficulty engaging in Goal-directed behavior (5-25): 14 Impulse control difficulties (6-30): 13 Lack of emotional awareness (6-30): 24 Limited access to emotion regulation strategies (8-40): 19 Lack of emotional clarity (5-25): 17 Higher scores indicate greater problems with emotion regulation. /simone/ Porfirio Sheets, PhD Clinical Psychologist Signed: 11/23/2023 08:38 PORFIRIO SHEETS [place] Nov 20, 2023 02:09 PM GROUP COUNSELING N OTE: LOCAL TITLE: BEHAVIORAL MEDICINE - GROUP TREATMENT STANDARD TITLE: GROUP COUNSELING NOTE DATE OF NOTE: NOV 20, 2023@14:09 ENTRY DATE: NOV 20, 2023@14:09:32 AUTHOR: PORFIRIO SHEETS COSIGNER: URGENCY: STATUS: COMPLETED LENGTH OF SESSION: 60 min NUMBER OF VETS IN GROUP: 7 CPT: 76894 MODALITY OF CARE: (x) Group visit In-person REASON FOR ENCOUNTER: attended session 1 of 5 of the biofeedback group for Anxiety and/or Stress. INFORMED CONSENT: Veterans were provided information about the purpose of psychophysiological training and that participation is voluntary. Risk and benefits and limits of confidentiality were discussed during the shared decision-making process, and [place] voluntarily agreed to group participation. Additional overview of biofeedback purpose, procedures, and techniques was provided, and offered verbal consent. Orientation to equipment including placement of sensor was reviewed. MEDICAL NECESSITY: is actively engaged in healthcare treatment through this [place] and elects to engage in this group to support overall health improvement. [place] understands this group is not intended to replace standard treatment practices. BIOFEEDBACK TRAINING EQUIPMENT: A portable biofeedback device and software was used to measure, analyze, and record biofeedback data from week to week. (x ) Inner Balance and [employer] SESSION CONTENT: Session #1: The theme today is: Heart Health The purpose/agenda of the group was shared at the outset of the group. Veterans are given a chance to introduce themselves. Empathy, validation of concerns, and supportive listening are offered. Veterans are introduced to the BFB equipment and use of technology for measurement of their psychophysiological state. Time was spent outlining course materials and the expectations for in- class and at-home practice using smart phone apps. [place] engaged in First Guided Practice in the inner balance meng. Risk Assessment: No report or indication of thoughts, intent, or plan of harming self or others today. No imminent risk identified. MSE: sounded alert, oriented, and engaged. Euthymic with appropriate affect expression; Concentration appeared WNL x3, no perceptual, behavioral or thought concerns reported or observed. PLAN: 1) will attend Session 2 next week. 2) At Home Practice: will engage in practicing with inner balance meng and aim for good coherence. IMPRESSIONS: was engaged in session. [place] engaged in breathing practice during session. DX: Anxiety /es/ Porfirio Sheets, PhD Clinical Psychologist Signed: 11/20/2023 14:21 PORFIRIO SHEETS [place]
--- OUTSIDE RECORDS SUMMARY | 2024-08-21 23:28 | XMS_ITS | Encounter Summary ---
Author Name [facility] [place] Address [address] [place] [address] Care Team Providers Care Global Commodity Manager Name Role Phone MARIIA BROUSSARD Primary [...] Patient's Relationship to Policy [employer] ([id number]) PRESCRIPT ION [facility] Mar 11, 2018 [id number] MADAI DELUNA OTHER RELATIONSHIP [facility] PREFERRED PROVIDER ORGANIZAT ION (PPO) Jun 11, 2011 [id number] MADAI DELUNA PATIENT [employer]MANA [facility] (WNR) MEDICARE ADVANTAGE [facility] (WNR) Sep 11, 2022 [id number] [phone] GILL DELUNA PATIENT MEDICARE (WNR) MEDICARE (M) PART A January 10, 2012 PART A [id number] [phone] MIKIE GILL PATIENT MEDICARE (WNR) MEDICARE (M) PART B January 10, 2012 PART B [id number] GILL DELUNA PATIENT MEDICARE (WNR) MEDICARE (M) PART A January 10, 2012 PART A [id number] GILL DELUNA PATIENT UNICARE PREFERRED PROVIDER ORGANIZAT ION (PPO) [place] RE STATE INDE* * Mar 11, 2015 [id number] MADAI DELUNA [facility] (WNR) MEDICARE ADVANTAGE [facility] (WNR) Mar 11, 2021 [id number] [phone] [id number] GILL DLEUNA PATIENT [facility]ARE [facility] (WNR) MEDICARE ADVANTAGE [facility] (WNR) Sep 11, 2021 [id number] [phone] GILL DELUNA PATIENT Selected Encounter This section includes the information on record at [place] for the Encounter. Date/Time Encounter Type Encounter Description Reason Provider Source Nov 06, 2023 10:51 AM Outpatient Encounter HT NON-VIDEO MONITORING ICD-10-CM I11.9 Hypertensive heart disease without heart failure ALCIRA LAYNE [place] Encounter Template Text not used by [place] Assessments - Encounter Diagnoses This section includes the primary and secondary diagnoses documented for the Encounter. Date/Time Primary/Secondary Diagnosis Diagnosis Name Provider Source Nov 06, 2023 10:55 AM PRIMARY Hypertensive heart disease without heart failure [facility]IRA LAYNE [facility] [place] [facility] Plan of Treatment: Future Appointments (+ 6 months) and Future Tests (+/- 45 days) The Plan of Treatment section includes future care activities for the patient from all [place] treatmentfacilities. This section includes future appointments and future orders which are active, pending or scheduled. Future Appointments This section includes appointments that were scheduled to occur 6 months from the date of the Encounter, up to a maximum of 20 appointments. The data comes from all [place] treatment facilities. Appointment Date/Time Appointment Type Appointme nt Facility Name Nov 07, 2023 10:00 AM AMBULATORY - MEDICINE [place] [facility] Nov 10, 2023 01:15 PM AMBULATORY - MEDICINE [place] [facility] Nov 13, 2023 12:00 PM AMBULATORY - MEDICINE [place] [facility] Nov 20, 2023 11:00 AM AMBULATORY - MEDICINE [place] [facility] Nov 27, 2023 11:00 AM AMBULATORY - MEDICINE [place] [facility] Nov 28, 2023 11:00 AM AMBULATORY - MEDICINE [place] [facility] Dec 04, 2023 01:00 PM AMBULATORY - NONE [place] [facility] Dec 11, 2023 11:00 AM AMBULATORY - MEDICINE [place] [facility] Dec 12, 2023 09:00 AM AMBULATORY - MEDICINE [place] [facility] January 15, 2024 01:40 PM AMBULATORY - MEDICINE [place] [facility] January 22, 2024 08:30 AM AMBULATORY - MEDICINE [facility] Mar 01, 2024 10:00 AM [facility]ULAT[facility] [place] [facility] Lab Results: +/- 30 days of the encounter This section includes the Chemistry and Hematology Lab Results on record with [place] for the patient. Radiology Reports and Pathology Reports are provided separately, in subsequent sections. Lab Results This section contains the Chemistry/Hematology Results that were resulted 30 days before or 30 daysafter the date of the Encounter. Date/Time Source Result Type Result - Unit Interpretation Reference Range Comment Nov 02, 2023 12:00 AM [place] OCCULT BLOOD FIT X1 SCREEN(IN-HOUSE) Sp ecimen Type: FECES No comment entered. Ordering Provider: MARIIA CABRAL Report Released Date/Time: Oct 27, 2023 12:56 PM Reporting Lab: [facility] [address] [facility] [address] Performing Lab: [facility] [address] OCCULT BLOOD (FIT)#1 OF 1 Negative NEG Social History: Smoking Status (Most current) and Tobacco Use (All prior to encounter date) This section includes the most current, and the historical, smoking and tobacco- related health factors from the [place] facility where the Encounter took place. Current Smoking Status This section includes the most current smoking, or tobacco-related health factor, from the [place] facility where the Encounter took place. Date/Time Current Smoking Status Comment Nadine jose Dec 12, 2022 03:10 PM VA-TOBACCO NEVER USED [facility] Encounter Notes: All associated encounter notes This section contains the clinical notes associated to the Encounter. Date/Time Encounter Note(s) Provider Source Nov 06, 2023 10:51 AM CARE COORDINATION HOME TELEHEALTH SUMMARIZATION NOTE: LOCAL TITLE: MONTHLY MONITOR NOTE STANDARD TITLE: CARE COORDINATION HOME TELEHEALTH SUMMARIZATION DATE OF NOTE: NOV 06, 2023@10:51 ENTRY DATE: NOV 06, 2023@10:51:27 AUTHOR: ALCIRA LAYNE EXP COSIGNER: URGENCY: STATUS: COMPLETED The is enrolled in the Home Telehealth (HT) program and continues to be monitored via HT technology. The data sent by the is reviewed and analyzed by the HT staff, who provide ongoing case management and Hundred health education while communicating and collaborating with the health care team as appropriate. This note covers a total of 30 minutes for the month monitored. Month monitored: October 2023 Dx: Hypertension /simone/ KAVITHA Albert, RN [facility]-Home Telehealth Nurse Epidemiologist Signed: 11/06/2023 10:[address] [facility]
--- OUTSIDE RECORDS SUMMARY | 2024-08-21 23:28 | XMS_ITS | Encounter Summary ---
Author Name [facility] [place] Address [address] [place] [address] Care Team Providers Care Wash Driller Helper Name Role Phone MARIIA BROUSSARD Primary Care [...] Patient's Relationship to Policy Mancera EXPRESS SCRIPTS ([id number]) PRESCRIPT ION [facility] Mar 11, 2018 [id number] MADAI DELUNA OTHER RELATIONSHIP [facility] PREFERRED PROVIDER ORGANIZAT ION (PPO) Jun 11, 2011 [id number] MADAI DELUNA PATIENT HUMANA MCR (WNR) MEDICARE ADVANTAGE MCR (WNR) Sep 11, 2022 [id number] [phone] GILL DELUNA PATIENT MEDICARE (WNR) MEDICARE (M) PART A January 10, 2012 PART A [id number] [phone] [place] PATIENT MEDICARE (WNR) MEDICARE (M) PART B January 10, 2012 PART B [id number] [phone] [place] PATIENT MEDICARE (WNR) MEDICARE (M) PART A January 10, 2012 PART A [id number] GILL DELUNA PATIENT UNICARE PREFERRED PROVIDER ORGANIZAT ION (PPO) CRISTHIAN STATE INDE* * Mar 11, 2015 [id number] MADAI DELUNA SPOUSE [facility] (WNR) MEDICARE ADVANTAGE [facility] (WNR) Mar 11, 2021 [id number] GILL DELUNA PATIENT WELLCARE MCR (WNR) MEDICARE ADVANTAGE [facility] (WNR) Sep 11, 2021 [id number] GILL DELUNA PATIENT Selected Encounter This section includes the information on record at [place] for the Encounter. Date/Time Encounter Type Encounter Description Reason Pro vider Source Nov 27, 2023 11:00 AM Outpatient Encounter [facility] IHE Encounter Template Text not used by [place] Plan of Treatment: Future Appointments (+ 6 months) and Future Tests (+/- 45 days) The Plan of Treatment section includes future care activities for the patient from all [place] treatmentfacilities. This section includes future appointments and future orders which are active, pending or scheduled. Future Appointments This section includes appointments that were scheduled to occur 6 months from the date of the Encounter, up to a maximum of 20 appointments. The data comes from all [place] treatment facilities. Appointment Date/Time Appointment Type Appointme nt Facility Name Nov 28, 2023 11:00 AM AM[facility]ULATORY [facility] [place] [facility] Dec 04, 2023 01:00 PM AMBULATORY - NONE [facility] [place] [facility] Dec 11, 2023 11:00 AM AMBULATORY - MEDICINE [facility] [place] [facility] Dec 12, 2023 09:00 AM AMBULATORY [facility] MEDICINE [facility] [place] [facility] January 15, 2024 01:40 PM AMBULATORY - MEDICINE [facility] [place] [facility] January 22, 2024 08:30 AM [facility] Mar 01, 2024 10:00 AM AMBULATORY - MEDICINE [facility] [place] [facility] May 16, 2024 11:30 AM AMBULATORY - MEDICINE [place] [facility] [place] [facility] Lab Results: +/- 30 days of the encounter This section includes the Chemistry and Hematology Lab Results on record with [place] for the patient. Radiology Reports and Pathology Reports are provided separately, in subsequent sections. Lab Results This section contains the Chemistry/Hematology Results that were resulted 30 days before or 30 daysafter the date of the Encounter. Date/Time Source Result Type Result - Unit Interpretation Reference Range Comment Nov 02, 2023 12:00 AM [facility] OCCULT BLOOD FIT X1 SCREEN(IN-HOUSE) Sp ecimen Type: FECES No comment entered. Ordering Provider: MARIIA CABRAL Report Released Date/Time: Oct 27, 2023 12:56 PM Reporting Lab: [address] [id number] Performing Lab: [address] [address] OCCULT BLOOD (FIT)#1 OF 1 Negative NEG Social History: Smoking Status (Most current) and Tobacco Use (All prior to encounter date) This section includes the most current, and the historical, smoking and tobacco- related health factors from the [place] facility where the Encounter took place. Current Smoking Status This section includes the most current smoking, or tobacco-related health factor, from the [place] facility where the Encounter took place. Date/Time Current Smoking Status Comment Nadine it Jul 06, 2021 09:30 AM VA-TOBACCO NEVER USED [facility] Tobacco Use History This section includes a history of the smoking, or tobacco-related health factors, that were collected on or before the date of the Encounter. The data comes from the [place] facility where the Encounter took place. Date/Time Smoking Status/Tobacco Use Comment F acility Apr 30, 2020 01:00 PM VA-TOBACCO FORMER USER [facility] Apr 30, 2020 01:00 PM VA-TOBACCO QUIT 15 YRS OR MORE [facility] January 09, 2019 02:16 PM VA-TOBACCO FORMER USER [facility] January 09, 2019 02:16 PM VA-TOBACCO QUIT 15 YRS OR MORE [facility] Feb 13, 2018 11:05 AM QUIT TOBACCO USE > 7 YEARS AGO [facility] Feb 28, 2017 01:42 PM LIFETIME NON-TOBACCO USER quit 1976 [facility] Nov 17, 2015 09:53 AM QUIT TOBACCO USE > 7 YEARS AGO [facility] February 08, 2002 03:04 PM QUIT TOBACCO USE > 7 YEARS AGO Patient states he smoked from age [age] and quit. [facility] Aug 10, 2001 03:42 PM NON-TOBACCO USER Stopped tobacco 35 years ago [facility] Encounter Notes: All associated encounter notes This section contains the clinical notes associated to the Encounter. Date/Time Encounter Note(s) Provider Source Nov 27, 2023 12:05 PM CLERICAL NOTE: LOCAL TITLE: APPOINTMENT NO SHOW STANDARD TITLE: CLERICAL NOTE DATE OF NOTE: NOV 27, 2023@12:05 ENTRY DATE: NOV 27, 2023@12:06:07 AUTHOR: PORFIRIO SHEETS EXP COSIGNER: URGENCY: STATUS: COMPLETED Patient Name: GILL DELUNA Patient SSN: [id number] Date and time of Appointment No show : 11/27/23 11:00 PATIENT PHONE - PHONE NUMBER [CELLULAR] - Patient's medical record was reviewed. Follow-up actions were determined and initiated: Please check/complete as applies: [X]Telephoned Directly [ ]Re-scheduled for next available appt [ ]Sent a N0-show letter ( must call for appointment) [ ]Other (Emergent/Overbook, etc.): Additional Comments: Strandquist stated he thought it was every other week. He noted he would be here next Monday. alerting MARGAUX to please no show today's group apointment. AND see new RTC. thank you Future Clinic Visits 12/04/2023 13:00 CWM/SO/NUTRITION1 12/12/2023 09:00 CWM/SO/TELE/PHARM/PACT 2 01/15/2024 13:40 [facility] CARE-CARDIOLOGY 01/22/2024 08:30 CWM/SO/PODIATRY/ROSS 05/16/2024 11:30 CWM/NO/DERMATOLOGY C/AM 05/30/2024 09:30 CWM/SO/PACT 5 /es/ Porfirio Sheets, PhD Clinical Psychologist Signed: 11/27/2023 12:07 Receipt Acknowledged By: 11/28/2023 08:16 /es/ PORFIRIO NELSON [facility]
--- OUTSIDE RECORDS SUMMARY | 2024-08-21 23:28 | XMS_ITS | Encounter Summary ---
Author Name [facility] [place] Address [address] [place] [address] Care Team Providers Care Production Machine Shop Supervisor Name Role Phone MARIIA BROUSSARD Primary Care [...] Patient's Relationship to Policy Mancera EXPRESS SCRIPTS ([id number]) [facility]CRIPT ION [facility] Mar 11, 2018 [id number] MADAI DELUNA OTHER RELATIONSHIP [facility] PREFERRED PROVIDER ORGANIZAT ION (PPO) Jun 11, 2011 [id number] [phone] MADAI DELUNA PATIENT HUMANA [facility] (WNR) MEDICARE ADVANTAGE [facility] (WNR) Sep 11, 2022 [id number] [phone] GILL DELUNA PATIENT MEDICARE (WNR) MEDICARE (M) PART A January 10, 2012 PART A [id number] [phone] GILL DELUNA PATIENT MEDICARE (WNR) MEDICARE (M) PART B January 10, 2012 PART B [id number] GILL DELUNA PATIENT MEDICARE (WNR) MEDICARE (M) PART A January 10, 2012 PART A [id number] GILL DELUNA PATIENT UNICSPEEDY PREFERRED PROVIDER ORGANIZAT KIANNA (PPO) CRISTHIAN [place] STATE THUYE* * Mar 11, 2015 [id number] MADAI DELUNA SPOUSE [facility] (WNR) MEDICARE ADVANTAGE [facility] (WNR) Mar 11, 2021 [id number] GILL DELUNA PATIENT WELLCARE [facility] (WNR) MEDICARE ADVANTAGE [facility] (WNR) Sep 11, 2021 [id number] [phone] GILL DELUNA PATIENT Selected Encounter This section includes the information on record at [place] for the Encounter. Date/Time Encounter Type Encounter Description Reason Pro vider Source Dec 20, 2023 02:09 PM Outpatient Encounter TELEPHONE PRIMARY CARE IHE Encounter Template Text not used by [place] Plan of Treatment: Future Appointments (+ 6 [...] 15, 2024 01:40 PM AMBULATORY - MEDICINE [facility] [place] [facility] January 22, 2024 08:30 AM [facility]ICINE [facility] Mar 01, 2024 10:00 AM [facility] May 16, 2024 11:30 AM [facility] Jun 11, 2024 08:30 AM [facility]ORY - MEDICINE [facility] Jun 18, 2024 02:15 PM [facility]ULATORY - MEDICINE [facility] Jun 20, 2024 10:45 AM [facility]ULATORY - MEDICINE [facility] Social History: Smoking Status (Most [...] VA-TOBACCO NEVER USED [facility] [place] [facility] Encounter Notes: All associated encounter notes This section contains the clinical notes associated to the Encounter. Date/Time Encounter Note(s) Provider Source Dec 20, 2023 02:09 PM TELEPHONE ENCOUNTE R NOTE: LOCAL TITLE: TELEPHONE NOTE/HEALTH PROMOTION AND DISEASE PREVENT STANDARD TITLE: TELEPHONE ENCOUNTER NOTE DATE OF NOTE: DEC 20, 2023@14:09 ENTRY DATE: DEC 20, 2023@14:10:19 AUTHOR: PORFIRIO SHEETS EXP COSIGNER: URGENCY: STATUS: COMPLETED TELEPHONE NOTE/HEALTH PROMOTION AND DISEASE PREVENTION Has ADDENDA [place] called ghost writer and stated he was unable to make group on 12/18/23 biofeedback grp. He stated that if there was a biofeedback group in the future he would like to join that. alerting silvioa to please cancel by [place] the 12/18/23 biofeedback grp. thank you /simone/ Porfirio Sheets PhD Clinical Psychologist Signed: 12/20/2023 14:11 Receipt Acknowledged By: 12/20/2023 14:16 /essence DAMICO 12/20/2023 ADDENDUM STATUS: COMPLETED Yoga Coordinator canceled appointment and sent letter. /essence DAMICO Signed: 12/20/2023 14:16 PORFIRIO SHEETS Nov 20, 2023 02:00 PM CONSULT: LOCAL TITLE: CONSULT/BIOFEEDBACK STANDARD TITLE: CONSULT DATE OF NOTE: NOV 20, 2023@14:00 ENTRY DATE: DEC 20, 2023@14:12:03 AUTHOR: PORFIRIO SHEETS EXP COSIGNER: URGENCY: STATUS: COMPLETED Please see 11/20/23 note which serves as consult reply. /essence Sheets, PhD Clinical Psychologist Signed: 12/20/2023 14:12 PORFIRIO SHEETS
--- OUTSIDE RECORDS SUMMARY | 2024-08-21 23:28 | XMS_ITS | Encounter Summary ---
Author Name [facility] [place] Address [address] [place] [address] Care Team Providers Care Slurry Control Tender Name Role Phone MARIIA BROUSSARD Primary Care [...] Patient's Relationship to Policy Mancera EXPRESS SCRIPTS ([id number]) PRESCRIPT ION [facility] Mar 11, 2018 [id number] MADAI DELUNA OTHER RELATIONSHIP [facility] PREFERRED PROVIDER ORGANIZAT ION (PPO) Jun 11, 2011 [id number] MADAI DELUNA PATIENT HUMANA [facility] (WNR) MEDICARE ADVANTAGE [facility] (WNR) Sep 11, 2022 [id number] [phone] GILL DELUNA PATIENT MEDICARE (WNR) MEDICARE (M) PART A January 10, 2012 PART A [id number] MIKIE GILL PATIENT MEDICARE (WNR) MEDICARE (M) PART B January 10, 2012 PART B [id number] GILL DELUNA PATIENT MEDICARE (WNR) MEDICARE (M) PART A January 10, 2012 PART A [id number] GILL DELUNA PATIENT UNICARE PREFERRED PROVIDER ORGANIZAT ION (PPO) [place] RE STATE INDE* * Mar 11, 2015 [id number] MADAI DELUNA [facility] (WNR) MEDICARE ADVANTAGE [facility] (WNR) Mar 11, 2021 [id number] GILL DELUNA PATIENT WELLCARE [facility] (WNR) MEDICARE ADVANTAGE [facility] (WNR) Sep 11, 2021 [id number] GILL DELUNA PATIENT Selected Encounter This section includes the information on record at [place] for the Encounter. Date/Time Encounter Type Encounter Description Reason Pro vider Source Nov 10, 2023 08:01 AM Outpatient Encounter PRIMARY CARE/MEDICINE IHE Encounter Template Text not used by [place] Plan of Treatment: Future Appointments (+ 6 months) and Future Tests (+/- 45 days) The Plan of Treatment section includes future care activities for the patient from all [place] treatmentfacilities. This section includes future appointments and future orders which are active, pending or scheduled. Future Appointments This section includes appointments that were scheduled to occur 6 months from the date of the Encounter, up to a maximum of 20 appointments. The data comes from all [place] treatment facilities. Appointment Date/Time Appointment Type Appointme nt Facility Name Nov 13, 2023 12:00 PM AMBULATORY [place]INE [place] [facility] [place] [facility] Nov 20, 2023 11:00 AM AM[facility]ULATORY [facility] MEDIC[facility] [place] [facility] Nov 27, 2023 11:00 AM AMBULATORY [facility] MEDICINE [facility] [place] [facility] Nov 28, 2023 11:00 AM AMBULATORY - MEDICINE [facility] [place] [facility] Dec 04, 2023 01:00 PM AMBULATORY - NONE [facility] [place] [facility] Dec 11, 2023 11:00 AM AMBULATORY - MEDICINE [facility] [place] [facility] Dec 12, 2023 09:00 AM AMBULATORY - MEDICINE [facility] [place] [facility] January 15, 2024 01:40 PM AMBULATORY - MEDICINE [facility] January 22, 2024 08:30 AM AMBULATORY - MEDICINE [facility] Mar 01, 2024 10:00 AM AMBULATORY - MEDICINE [facility] Lab Results: +/- 30 days of the encounter This section includes the Chemistry and Hematology Lab Results on record with [place] for the patient. Radiology Reports and Pathology Reports are provided separately, in subsequent sections. Lab Results This section contains the Chemistry/Hematology Results that were resulted 30 days before or 30 daysafter the date of the Encounter. Date/Time Source Result Type Result - Unit Interpretation Reference Range Comment Nov 02, 2023 12:00 AM [place] OCCULT BLOOD FIT X1 SCREEN(IN-HOUSE) Sp ecimen Type: FECES No comment entered. Ordering Provider: MARIIA CABRAL Report Released Date/Time: Oct 27, 2023 12:56 PM Reporting Lab: [address] [address] Performing Lab: [address] [address] OCCULT BLOOD (FIT)#1 OF 1 Negative NEG Social History: Smoking Status (Most current) and Tobacco Use (All prior to encounter date) This section includes the most current, and the historical, smoking and tobacco- related health factors from the [place] facility where the Encounter took place. Current Smoking Status This section includes the most current smoking, or tobacco-related health factor, from the [place] facility where the Encounter took place. Date/Time Current Smoking Status Comment Nadine jose Dec 12, 2022 03:10 PM VA-TOBACCO NEVER USED [facility] Encounter Notes: All associated encounter notes This section contains the clinical notes associated to the Encounter. Date/Time Encounter Note(s) Provider Source Nov 13, 2023 01:42 PM ADDENDUM: LOCAL TITLE: Addendum STANDARD TITLE: ADDENDUM DATE OF NOTE: NOV 13, 2023@13:42:38 ENTRY DATE: NOV 13, 2023@13:42:39 AUTHOR: LUX ARMSTRONG COSIGNER: URGENCY: STATUS: COMPLETED Pt was contacted by this rewriter on 11/10/23 - w/ recommendation of insulin glargine dose reduction. Pt to c/t to f/up w/ CPP. thank you ! /essence ARMSTRONG CLINICAL ASSEMBLER RUBBER FOOTWEAR Signed: 11/13/2023 13:43 Receipt Acknowledged By: 11/13/2023 14:48 /essence DURON RN REGISTERED NURSE 11/15/2023 10:53 /essence ALMARAZ LPN LPN === --- Original Document --- 11/10/23 PRIMARY CARE SECURE MESSAGING: ------Original Message ------ Sent: 11/10/2023 12:04 AM ET From: GILL DELUNA To: CHASITY BROUSSARD [facility] Subject: Appointment:need appointment Good morning Not sure what's going on but last night I was awakened by my Decscom meter with a low sugar alarm I check with my finger stick and it was 67, I used the insta glucose tube. It took about a half hour and almost a whole tube before I got it back up to a 142 reading also happened a day or so ago when it went down to 57. /essence DAMICO Signed: 11/10/2023 08:01 Receipt Acknowledged By: 11/13/2023 14:47 /essence UDRON RN REGISTERED NURSE 11/15/2023 10:52 /KEVIN Lockwood LPN, IZABELA A [facility] [place] [facility] Nov 10, 2023 08:01 AM PRIMARY CARE SECURE MESSAGING: LOCAL TITLE: PRIMARY CARE SECURE MESSAGING STANDARD TITLE: PRIMARY CARE SECURE MESSAGING DATE OF NOTE: NOV 10, 2023@08:01 ENTRY DATE: NOV 10, 2023@08:01 AUTHOR: LORETA SINGLETARY EXP COSIGNER: URGENCY: STATUS: COMPLETED PRIMARY CARE SECURE MESSAGING Has ADDENDA ------Original Message ------ Sent: 11/10/2023 12:04 AM ET From: GILL DELUNA To: CHASITY BROUSSARD [facility] Subject: Appointment:need appointment Good morning Not sure what's going on but last night I was awakened by my Decscom meter with a low sugar alarm I check with my finger stick and it was 67, I used the insta glucose tube. It took about a half hour and almost a whole tube before I got it back up to a 142 reading also happened a day or so ago when it went down to 57. /simone/ LORETA DAMICO Signed: 11/10/2023 08:01 Receipt Acknowledged By: 11/13/2023 14:47 /essence DURON RN REGISTERED NURSE 11/15/2023 10:52 /simone/ ABDI ALMARAZ LPN LPN 11/13/2023 ADDENDUM STATUS: COMPLETED Pt was contacted by this rewriter on 11/10/23 - w/ recommendation of insulin glargine dose reduction. Pt to c/t to f/up w/ CPP. thank you ! /simone/ LXU ARMSTRONG CLINICAL ASSEMBLER RUBBER FOOTWEAR Signed: 11/13/2023 13:43 Receipt Acknowledged By: 11/13/2023 14:48 /simone/ KYLER DURON RN REGISTERED NURSE * AWAITING SIGNATURE * ABDI ALMARAZ [facility]
--- OUTSIDE RECORDS SUMMARY | 2024-08-21 23:28 | XMS_ITS | Encounter Summary ---
Author Name [facility] [place] Organization [place] Address [address] [place] [address] Care Team Providers Care Negative Cutter Name Role Phone MARIIA BROUSSARD Primary Care [...] Patient's Relationship to Policy [employer] ([id number]) PRESCRIPT ION [facility] Mar 11, 2018 [id number] MADAI DELUNA OTHER RELATIONSHIP [facility] PREFERRED PROVIDER ORGANIZAT ION (PPO) Jun 11, 2011 [id number] [phone] MADAI DELUNA PATIENT HU[employer]NA MCR (WNR) MEDICARE ADVANTAGE MCR (WNR) Sep 11, 2022 [id number] [phone] [place] PATIENT MEDICARE (WNR) MEDICARE (M) PART A January 10, 2012 PART A [id number] [phone] [place] PATIENT MEDICARE (WNR) MEDICARE (M) PART B January 10, 2012 PART B [id number] [place] PATIENT MEDICARE (WNR) MEDICARE (M) PART A January 10, 2012 PART A [id number] GILL DELUNA PATIENT [employer] PREFERRED PROVIDER ORGANIZAT ION (PPO) CRISTHIAN LEAH GU* * Mar 11, 2015 [id number] MADAI DELUNA SPOUSE [facility] (WNR) MEDICARE ADVANTAGE [facility] Mar 11, 2021 [id number] GILL DELUNA PATIENT WELLCARE [facility] (WNR) MEDICARE ADVANTAGE [facility] (WNR) Sep 11, 2021 [id number] GILL DELUNA PATIENT Selected Encounter This section includes the information on record at [place] for the Encounter. Date/Time Encounter Type Encounter Description Reason Provider Source Nov 28, 2023 11:00 AM PRO PHONE CALL 11-20 MIN TELEPHONE PRIMARY CARE ICD-10-CM E11.9 Type 2 diabetes mellitus without complications DARRICK ARMSTRONG [facility] Encounter Template Text not used by [place] Assessments - Encounter Diagnoses This section includes the primary and secondary diagnoses documented for the Encounter. Date/Time Primary/Secondary Diagnosis Diagnosis Name Provider Source Nov 28, 2023 11:00 AM PRIMARY Type 2 diabetes mellitus without complications BRANDON ARMSTRONG [facility] Plan of Treatment: Future Appointments (+ 6 months) and Future Tests (+/- 45 days) The Plan of Treatment section includes future care activities for the patient from all [place] treatmentfacilities. This section includes future appointments and future orders which are active, pending or scheduled. Future Appointments This section includes appointments that were scheduled to occur 6 months from the date of the Encounter, up to a maximum of 20 appointments. The data comes from all [place] treatment facilities. Appointment Date/Time Appointment Type Appointme nt Facility Name Dec 04, 2023 01:00 PM AMBULATORY - NONE [place] [facility] [place] [facility] Dec 11, 2023 11:00 AM AM[place]ULATORY [place]ICINE [place] [facility] [facility] Dec 12, 2023 09:00 AM AM[place]UL[place]ORY [place]ICINE [place] [facility] [place] [facility] January 15, 2024 01:40 PM AM[place]UL[place]ORY [place]ICINE [place] [place] [facility] January 22, 2024 08:30 AM AM[facility]ULATORY - MEDICINE [facility] Mar 01, 2024 10:00 AM [facility] [place] [facility] May 16, 2024 11:30 AM AMBULATORY - MEDICINE [facility] Lab Results: +/- 30 days of the encounter This section includes the Chemistry and Hematology Lab Results on record with [place] for the patient. Radiology Reports and Pathology Reports are provided separately, in subsequent sections. Lab Results This section contains the Chemistry/Hematology Results that were resulted 30 days before or 30 daysafter the date of the Encounter. Date/Time Source Result Type Result - Unit Interpretation Reference Range Comment Nov 02, 2023 12:00 AM [facility] OCCULT BLOOD FIT X1 SCREEN(IN-HOUSE) Sp ecimen Type: FECES No comment entered. Ordering Provider: MARIIA CABRAL Report Released Date/Time: Oct 27, 2023 12:56 PM Reporting Lab: [address] [address] Performing Lab: [address] [address] OCCULT BLOOD (FIT)#1 OF 1 Negative NEG Social History: Smoking Status (Most current) and Tobacco Use (All prior to encounter date) This section includes the most current, and the historical, smoking and tobacco- related health factors from the [place] facility where the Encounter took place. Current Smoking Status This section includes the most current smoking, or tobacco-related health factor, from the [place] facility where the Encounter took place. Date/Time Current Smoking Status Comment Nadine jose Jul 06, 2021 09:30 AM [place]-TOBACCO NEVER USED [facility] Tobacco Use History This section includes a history of the smoking, or tobacco-related health factors, that were collected on or before the date of the Encounter. The data comes from the [place] facility where the Encounter took place. Date/Time Smoking Status/Tobacco Use Comment F acility Apr 30, 2020 01:00 PM [place]-TOBACCO FORMER USER [facility] Apr 30, 2020 01:00 PM [place]-TOBACCO QUIT 15 YRS OR MORE [facility] January 09, 2019 02:16 PM [place]-TOBACCO FORMER USER [facility] January 09, 2019 02:16 PM [place]-TOBACCO QUIT 15 YRS OR MORE [facility] Feb 13, 2018 11:05 AM QUIT TOBACCO USE > 7 YEARS AGO [facility] Feb 28, 2017 01:42 PM LIFETIME NON-TOBACCO USER quit 1976 [facility] Nov 17, 2015 09:53 AM QUIT TOBACCO USE > 7 YEARS AGO [facility] February 08, 2002 03:04 PM QUIT TOBACCO USE > 7 YEARS AGO Patient states he smoked from age [age] and quit. [facility] Aug 10, 2001 03:42 PM NON-TOBACCO USER Stopped tobacco 35 years ago [facility] Encounter Notes: All associated encounter notes This section contains the clinical notes associated to the Encounter. Date/Time Encounter Note(s) Provider Source Nov 28, 2023 03:41 PM PHARMACY OUTPATIEN T NOTE: LOCAL TITLE: PHARMACY CLINIC NOTE STANDARD TITLE: PHARMACY OUTPATIENT NOTE DATE OF NOTE: NOV 28, 2023@15:41 ENTRY DATE: NOV 28, 2023@15:41:14 AUTHOR: LUX ARMSTRONG COSIGNER: URGENCY: STATUS: COMPLETED Patient Name: GILL DELUNA was seen via telephone for follow-up for diabetes management treatment. : January Age: 78 Sex: MALE Race: WHITE Subjective: Pt contacted the clinic to report hypoglycemic [...] He is not however looking forward to [facility] holidays. He continues to work- has Mondays off. Per prev: Pt was contacted for a f/up. Last 3 days sensor readings much improved without any false readings. PT is using ugo 3 now. He had appt w/ PCP yesterday. He informed the production underwriter he decided to stopp empagliflozin 3 [...] the reader. He has contacted the provided [employer] [place] dedicated line and received several replacement sensors [...] estate. Pt is seeing MH at the [place] and is grateful for that. He also [...] as instructed on 01/23/23. 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 He is glad he is on this equipment. The production underwriter spent close to 20 minutes trying to have pt accept the invitation without success. Both production underwriter and pt agreed for him to [...] 2. Benign Prostatic Hypertrophy with Outflow Obstruction ([facility] [id number]) 3. Erectile Dysfunction ([facility] [id number]) 4. Depression ([facility] 93279678) 5. Actinic keratosis 6. Basal cell carcinoma of skin 7. Vitamin D Deficiency ([facility] 33287259) 8. Contact dermatitis 9. Space-occupying lesion of brain 10. Second degree atrioventricular block 11. Cancer screening follow up 12. Hyperglycemia due to type 2 diabetes mellitus 13. PVD-peripheral vascular disease 14. Hyperlipidemia 15. Elevated PSA 16. Epistaxis * 17. Sleep apnea (SNOMED CT 03222299) 18. Superficial basal cell carcinoma 19. Gastroesophageal reflux disease (SNOMED CT 958979665) 20. Anxiety 21. Diabetes mellitus (SNOMED CT 80014361) 22. Essential hypertension (SNOMED CT 99161546) 23. Body mass index 25-29 - overweight [...] IN RANGE <1% LOW <1* VERY LOW invitation to dexcom clarity was sent on 11/10/23 to: [email or web address] NUTRITION: Patient eats on avg. 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 REcommend to c/t at current dose. Reviewed treatment of hypoglycemia. Reviewed nutrition and physical activity. f/up on 12/12/23 not eating after 9 PM DIABETES A1c is ABOVE goal of <7% - Medication management Diabetes -c/t Insulin novolog per ICR to 1:7 before breakfast and lunch; and 1:10 at dinner meal folow a meal dose calculator* provided at the previous visit ISF of 1:28 for BG >130 mg/dl pre meal -c/t Insulin glargine (Semglee) 8 units daily hs @10 PM -C/t semaglutide 2mg once weekly (Mondays) - Reviewed [place] lab results - Monitor for s/sx hypoglycemia and contact clinic if BG consistently <70mg/dL - Healthy dietary and lifestyle modifications encouraged - c/t w/ lifestyle changes - Repeat A1c: august, - Reviewed [place] lab results - Monitor for s/sx hypoglycemia and contact clinic if BG consistently <70mg/dL - Healthy dietary and lifestyle modifications encouraged - to c/t to cut down on milk intake and reverting nutrition to previous, more balanced diet. - Repeat A1c: 11/2022 HTN: [facility]; on ARB and ASA 81mg/day. Defer to PCP. ASCVD: LDL < 70, not on statin therapy; defer to PCP Microalb: 8.3 mg/G (12/2020); will order w/ next labs History of Preventive Care: Most recent visit to tube cleaner: 04/2022 Most recent visit to optometry: 10/2021; Diabetes mellitus without retinopathy or macular edema Clinic's Next Scheduled Follow-up: 12/12/23 telephone No barriers; Patient understands and agrees to current treatment plan. If he has any questions, concerns, or changes in current health status he will call or come [facility] the [facility]. FUTURE APPOINTMENTS: 10/09/2023 13:30 CWM/SO/CVT/MHC/IND LITHOGRAPHER HELPER/[place] 10/09/2023 13:31 CWM/SO/CVT/MHC/IND LITHOGRAPHER HELPER/[place] 11/10/2023 13:15 COM CARE-UROLOGY 01/22/2024 08:30 CWM/SO/PODIATRY/ROSS 05/16/2024 11:30 CWM/NO/DERMATOLOGY C/AM DM type is : T2D Length of Visit: 30 minutes PBM PharmD Pharmacotherapy Rem V12: PHARMACIST INTERVENTIONS: TYPE 2 DIABETES MELLITUS Medication Intervention(s) Adjust dose or frequency of current medication due to other reason Plan: reduce dose of insulin glargine Medication monitoring, no dosage change required, continue to monitor and assess /simone/ LUX ARMSTRONG CLINICAL CAD DEVELOPER Signed: 11/29/2023 14:01 Receipt Acknowledged By: 11/30/2023 08:38 /simone/ MARIIA BROUSSARD MD PHYSICIAN LUX ARMSTRONG [facility]
--- OUTSIDE RECORDS SUMMARY | 2024-08-21 23:28 | XMS_ITS | Encounter Summary ---
Author Name [facility] [place] Organization [place] Address [address] [place] [address] Care Team Providers Care Product Accountant Name Role Phone MARIIA BROUSSARD Primary Care [...] Patient's Relationship to Policy [employer] ([id number]) PRESCRIPT ION [facility] Mar 11, 2018 [id number] MADAI DELUNA OTHER RELATIONSHIP [facility] PREFERRED PROVIDER ORGANIZAT ION (PPO) Jun 11, 2011 [id number] [phone] MADAI DELUNA PATIENT HUMANA MCR (WNR) MEDICARE ADVANTAGE MCR (WNR) Sep 11, 2022 [id number] [place] PATIENT MEDICARE (WNR) MEDICARE (M) PART A January 10, 2012 PART A [id number] [phone] [place] PATIENT MEDICARE (WNR) MEDICARE (M) PART B January 10, 2012 PART B [id number] [place] PATIENT MEDICARE (WNR) MEDICARE (M) PART A January 10, 2012 PART A [id number] GILL DELUNA PATIENT [employer] PREFERRED PROVIDER ORGANIZAT ION (PPO) CRISTHIAN LEAH GU* * Mar 11, 2015 [id number] MADAI DELUNA SPOUSE [facility] (WNR) MEDICARE ADVANTAGE [facility] (WNR) Mar 11, 2021 [id number] GILL DELUNA PATIENT WELLCARE [facility] (WNR) MEDICARE ADVANTAGE [facility] (WNR) Sep 11, 2021 [id number] GILL DELUNA PATIENT Selected Encounter This section includes the information on record at [place] for the Encounter. Date/Time Encounter Type Encounter Description Reason Provider Source Nov 13, 2023 12:00 PM PRO PHONE CALL 21-30 MIN TELEPHONE PRIMARY CARE ICD-10-CM E11.9 Type 2 diabetes mellitus without complications DARRICK ARMSTRONG [facility] Encounter Template Text not used by [place] Assessments - Encounter Diagnoses This section includes the primary and secondary diagnoses documented for the Encounter. Date/Time Primary/Secondary Diagnosis Diagnosis Name Provider Source Nov 13, 2023 12:00 PM PRIMARY Type 2 diabetes mellitus without complications BRANDON ARMSTRONG [place] Plan of Treatment: Future Appointments (+ 6 [...] 20, 2023 11:00 AM [place]ORY - [place] [facility] Nov 27, 2023 11:00 AM [place] [facility] Nov 28, 2023 11:00 AM [place] [facility] Dec 04, 2023 01:00 PM AMBUL[place]ORY - NONE [place] [facility] [place] [facility] Dec 11, 2023 11:00 AM [place] [facility] Dec 12, 2023 09:00 AM [place] [facility] January 15, 2024 01:40 PM AMBULATORY - MEDICINE [facility] January 22, 2024 08:30 AM [facility] Mar 01, 2024 10:00 AM AM[facility]ULATORY - MED[facility] Lab Results: +/- 30 days of [...] Range Comment Nov 02, 2023 12:00 AM [place] OCCULT BLOOD FIT X1 SCREEN(IN-HOUSE) Sp ecimen Type: FECES No comment entered. Ordering Provider: MARIIA CABRAL Report Released Date/Time: Oct 27, 2023 12:56 PM Reporting Lab: [facility] [address] [facility] [address] Performing Lab: [address] [address] OCCULT BLOOD (FIT)#1 OF 1 Negative NEG [...] place. Date/Time Current Smoking Status Comment Nadine [facility] Jul 06, 2021 09:30 AM [place]-TOBACCO NEVER USED [place] Tobacco Use History This section includes a history of the smoking, or tobacco-related health factors, that were collected on or before the date of the Encounter. The data comes from the [place] facility where the Encounter took place. Date/Time Smoking Status/Tobacco Use Comment [facility] Apr 30, 2020 01:00 PM [place]-TOBACCO FORMER USER [place] Apr 30, 2020 01:00 PM [place]-TOBACCO QUIT 15 YRS OR MORE [place] January 09, 2019 02:16 PM [place]-TOBACCO FORMER USER [place] January 09, 2019 02:16 PM [place]-TOBACCO QUIT 15 YRS OR MORE [place] Feb 13, 2018 11:05 AM QUIT TOBACCO USE > 7 YEARS AGO [place] Feb 28, 2017 01:42 PM LIFETIME NON-TOBACCO USER quit 1976 [place] Nov 17, 2015 09:53 AM QUIT TOBACCO USE > 7 YEARS AGO [place] February 08, 2002 03:04 PM QUIT TOBACCO USE > 7 YEARS AGO Patient states he smoked from age [age] and quit. [place] Aug 10, 2001 03:42 PM NON-TOBACCO USER Stopped tobacco 35 years ago [facility] Encounter Notes: All associated encounter notes This section contains the clinical notes associated to the Encounter. Date/Time Encounter Note(s) Provider Source Nov 13, 2023 01:45 PM PHARMACY OUTPATIEN T NOTE: LOCAL TITLE: PHARMACY CLINIC NOTE STANDARD TITLE: PHARMACY OUTPATIENT NOTE DATE OF NOTE: NOV 13, 2023@13:45 ENTRY DATE: NOV 13, 2023@13:45:07 AUTHOR: LUX ARMSTRONG COSIGNER: URGENCY: STATUS: COMPLETED Patient Name: GILL DELUNA was seen via telephone for follow-up for diabetes management treatment. : January Age: 78 Sex: MALE Race: WHITE Subjective: Pt was contacted for a f/up. He [...] He is not however looking forward to [place] holidays. He continues to work- has Mondays off. Per prev: Pt was contacted for a f/up. Last 3 days sensor readings much improved without any false readings. PT is using ugo 3 now. He had appt w/ PCP yesterday. He informed the travel writer he decided to stopp empagliflozin 3 [...] the reader. He has contacted the provided [employer] [place] dedicated line and received several replacement sensors [...] estate. Pt is seeing MH at the [place] and is grateful for that. He also [...] as instructed on 01/23/23. 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 He is glad he is on this equipment. The travel writer spent close to 20 minutes trying to have pt accept the invitation without success. Both travel writer and pt agreed for him to [...] 2. Benign Prostatic Hypertrophy with Outflow Obstruction ([facility] [id number]) 3. Erectile Dysfunction ([facility] [id number]) 4. Depression ([facility] 65613931) 5. Actinic keratosis 6. Basal cell carcinoma of skin 7. Vitamin D Deficiency ([facility] 21676609) 8. Contact dermatitis 9. Space-occupying lesion of brain 10. Second degree atrioventricular block 11. Cancer screening follow up 12. Hyperglycemia due to type 2 diabetes mellitus 13. PVD-peripheral vascular disease 14. Hyperlipidemia 15. Elevated PSA 16. Epistaxis * 17. Sleep apnea (SNOMED CT 53884674) 18. Superficial basal cell carcinoma 19. Gastroesophageal reflux disease (SNOMED CT 839708572) 20. Anxiety 21. Diabetes mellitus (SNOMED CT 57693229) 22. Essential hypertension (SNOMED CT 01540525) 23. Body mass index 25-29 - overweight 24. Recurrent major depression in partial remission Objective: Diabetes Medication Regimen: -Insulin Novolog per ICR to 1:9 before breakfast and lunch; and 1:11 at dinner meal ; folow a meal dose calculator* ISF of 1:28 for BG >130 mg/dl pre meal avg 12-20 units/meals -Insulin glargine Semglee 16 units daily hs @10 PM - *decreased on 11/10/23. -Semaglutide 2mg once weekly (Mondays)- started 2 [...] IN RANGE <1% LOW <1 VERY LOW invitation to dexcom clarity was sent on 11/10/23 to: [email or web address] NUTRITION: Patient eats on avg. 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 After small insulin dose adjustment pt no longer reports hypoglycemic episodes. No changes to current regimen will update insulin orders. Recommended nutritional consult to review ICR and counting carbs. pt continues on dexcom without any problems. He likes it better than ugo sensor. Invitation to [employer] was sent. f/up in 1 month. 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 EMAIL INVITE SENT TO EMAIL FOR [employer] [facility]: [email or web address] @[email or web address] DIABETES A1c is ABOVE goal of <7% - Medication management Diabetes -c/t Insulin novolog per ICR to 1:7 before breakfast and lunch; and 1:10 at dinner meal folow a meal dose calculator* provided at the previous visit ISF of 1:28 for BG >130 mg/dl pre meal -c/t Insulin glargine (Semglee) 16 units daily hs @10 PM -C/t semaglutide 2mg once weekly (Mondays) - Reviewed [place] lab results - Monitor for s/sx hypoglycemia and contact clinic if BG consistently <70mg/dL - Healthy dietary and lifestyle modifications encouraged - c/t w/ lifestyle changes - Repeat A1c: august, - Reviewed [place] lab results - Monitor [...] of Preventive Care: Most recent visit to senior hardware engineer: 04/2022 Most recent visit to optometry: 10/2021; Diabetes mellitus without retinopathy or macular edema Clinic's Next Scheduled Follow-up: 12/12/23 telephone No barriers; Patient understands and agrees to current treatment plan. If he has any questions, concerns, or changes in current health status he will call or come in to the [facility]. FUTURE APPOINTMENTS: 10/09/2023 13:30 CWM/SO/CVT/MHC/IND QUALITY ASSURANCE LEAD/PA 10/09/2023 13:31 CWM/SO/CVT/MHC/IND QUALITY ASSURANCE LEAD/ME 11/10/2023 13:15 COM CARE-UROLOGY 01/22/2024 08:30 CWM/SO/PODIATRY/ROSS 05/16/2024 11:30 CWM/NO/DERMATOLOGY C/AM DM type is : T2D Length of Visit: 30 minutes PBM PharmD Pharmacotherapy Rem V12: PHARMACIST INTERVENTIONS: TYPE 2 DIABETES MELLITUS Medication Intervention(s) Medication monitoring, no dosage change required, continue to monitor and assess /simone/ LUX ARMSTRONG CLINICAL CENTRAL SUPPLY TECH Signed: 11/13/2023 14:26 Receipt Acknowledged By: 11/14/2023 01:20 /simone/ MARIIA BROUSSARD MD PHYSICIAN LUX ARMSTRONG [place]
--- OUTSIDE RECORDS SUMMARY | 2024-08-21 23:28 | XMS_ITS | Encounter Summary ---
Author Name [place] Address [address] [place] [address] Care Team Providers Care Supervisor Pigment Making Name Role Phone MARIIA BROUSSARD Primary Care [...] Patient's Relationship to Policy [employer] EXPRESS SCRIPTS ([id number]) PRESCRIPT ION [facility] Mar 11, 2018 [id number] [phone] MADAI DELUNA OTHER RELATIONSHIP [facility] PREFERRED PROVIDER ORGANIZAT ION (PPO) Jun 11, 2011 [id number] MADAI DELUNA PATIENT HUMANA [facility] (WNR) MEDICARE ADVANTAGE [facility] (WNR) Sep 11, 2022 [id number] [phone] GILL DELUNA PATIENT MEDICARE (WNR) MEDICARE (M) PART A January 10, 2012 PART A [id number] GILL DELUNA PATIENT MEDICARE (WNR) MEDICARE (M) PART B January 10, 2012 PART B [id number] [phone] GILL DELUNA PATIENT MEDICARE (WNR) MEDICARE (M) PART A January 10, 2012 PART A [id number] GILL DELUNA PATIENT UNICARE PREFERRED PROVIDER ORGANIZAT ION (PPO) [place] RE STATE INDE* * Mar 11, 2015 [id number] MADAI DELUNA SPOUSE [facility] (WNR) MEDICARE ADVANTAGE [facility] (WNR) Mar 11, 2021 [id number] GILL DELUNA PATIENT WELLCARE [facility] (WNR) MEDICARE ADVANTAGE [facility] (WNR) Sep 11, 2021 [id number] GILL DELUNA PATIENT Selected Encounter This section includes the information on record at [place] for the Encounter. Date/Time Encounter Type Encounter Description Reason Provider Source Nov 17, 2023 05:02 PM HC PRO PHONE CALL 11-20 MIN TELEPHONE/MEDICIN E ICD-10-CM I11.9 Hypertensive heart disease without heart failure ALCIRA LAYNE Belle Encounter Template Text not used by [place] Assessments - Encounter Diagnoses This section includes the primary and secondary diagnoses documented for the Encounter. Date/Time Primary/Secondary Diagnosis Diagnosis Name Provider Source Nov 17, 2023 05:02 PM PRIMARY Hypertensive heart disease without heart failure TRYBAALCIRA [place] [facility] [place] [facility] Nov 17, 2023 05:02 PM SECONDARY Bradycardia, unspecified TRYBA,ALCIRA [place] [facility] [place] [facility] Plan of Treatment: Future Appointments [...] 20, 2023 11:00 AM AMBULATORY - MEDICINE [facility] [place] [facility] Nov 27, 2023 11:00 AM AMBULATORY - MEDICINE [facility] NTRL [facility] Nov 28, 2023 11:00 AM AMBULATORY - MEDICINE [facility] [place] [facility] Dec 04, 2023 01:00 PM AMBULATORY - NONE [place] [facility] [place] [facility] Dec 11, 2023 11:00 AM AMBULATORY - MEDICINE [place] C [facility] [place] [facility] Dec 12, 2023 09:00 AM AMBULATORY - MEDICINE [place] C [facility] [place] [facility] January 15, 2024 01:40 PM AMBULATORY - MEDICINE [place] C [facility] [place] [facility] January 22, 2024 08:30 AM AMBULATORY - MEDICINE [facility] Mar 01, 2024 10:00 AM AMBULATORY - MEDICINE [place] C [facility] [place] [facility] May 16, 2024 11:30 AM [facility]ULATORY - [facility] Lab Results: +/- 30 days of the encounter This section includes the Chemistry and Hematology Lab Results on record with [place] for the patient. Radiology Reports and Pathology Reports are provided separately, in subsequent sections. Lab Results This section contains the Chemistry/Hematology Results that were resulted 30 days before or 30 daysafter the date of the Encounter. Date/Time Source Result Type Result - Unit Interpretation Reference Range Comment Nov 02, 2023 12:00 AM [place] OCCULT BLOOD FIT X1 SCREEN(IN-HOUSE) Sp ecimen Type: FECES No comment entered. Ordering Provider: MARIIA CABRAL Report Released Date/Time: Oct 27, 2023 12:56 PM Reporting Lab: [address] [address] Performing Lab: [address] [address] OCCULT BLOOD (FIT)#1 OF 1 Negative NEG [...] 12, 2022 03:10 PM VA-TOBACCO NEVER USED [facility] [place] [facility] Encounter Notes: All associated encounter notes This section contains the clinical notes associated to the Encounter. Date/Time Encounter Note(s) Provider Source Nov 17, 2023 05:02 PM CARE COORDINATION HOME TELEHEALTH FOLLOW-UP NOTE: LOCAL TITLE: HT INTERVENTION NOTE STANDARD TITLE: CARE COORDINATION HOME TELEHEALTH FOLLOW-UP NOTE DATE OF NOTE: NOV 17, 2023@17:02 ENTRY DATE: NOV 17, 2023@17:02:35 AUTHOR: ALCIRA LAYNE COSIGNER: URGENCY: STATUS: COMPLETED HT INTERVENTION NOTE Has ADDENDA [facility] is actively enrolled in the Home Telehealth program. Review of data shows the following out of range responses: GILL DELUNA (-1098) Vital Sign for: 10/19/2023 - 11/17/2023 (All times are EST; All weights are lbs) Primary DMP: VHA-HTN Comorbid(s): Summary Weight Sys BP Barnett BP HR Pain High 178.0 187 88 104 Low 168.2 96 50 38 Average 174.4 144 72 60 Date Time Wt Time Sys Barnett Time HR Time Pain 11/17/2023 08:43 168.2 08:42 158/84 08:42 62 11/16/2023 - 22:52 96/50 22:52 40 11/16/2023 - 21:29 146/71 21:29 43 11/16/2023 21:13 170.0 21:13 154/70 21:13 41 11/15/2023 - 23:06 116/56 23:06 45 11/15/2023 22:22 168.8 22:21 156/81 22:21 45 11/10/2023 20:12 173.2 20:11 187/85 20:11 56 11/09/2023 04:43 176.6 04:42 145/60 04:42 42 11/08/2023 21:42 173.0 21:41 116/60 21:41 48 11/07/2023 22:23 173.2 22:22 163/88 22:22 78 11/06/2023 09:23 175.2 09:23 136/70 09:23 47 11/05/2023 - 23:37 130/63 23:37 44 11/05/2023 22:50 175.2 22:49 146/70 22:49 46 11/05/2023 12:54 171.8 12:53 136/70 12:53 61 11/04/2023 04:31 174.4 04:30 151/64 04:30 39 11/03/2023 19:36 174.4 19:35 152/71 19:35 50 11/03/2023 06:09 177.6 06:08 120/65 06:08 76 11/02/2023 - 23:47 132/65 23:47 57 11/02/2023 21:10 173.4 21:09 138/70 21:09 77 11/01/2023 - 21:58 157/72 21:58 43 11/01/2023 19:27 172.8 19:26 128/71 19:26 69 10/31/2023 22:13 176.2 22:11 157/78 22:11 49 10/31/2023 - 05:55 160/81 05:55 46 10/30/2023 22:30 176.4 22:29 139/67 22:29 54 10/30/2023 13:02 172.6 13:01 162/82 13:01 38 10/30/2023 01:34 174.6 01:33 151/70 01:33 74 10/29/2023 - 22:42 108/61 22:42 59 10/29/2023 22:21 174.4 22:20 135/75 22:20 57 10/29/2023 - 20:35 160/79 20:35 55 10/29/2023 - 19:51 143/76 19:51 51 10/29/2023 - 13:44 128/61 13:44 44 10/29/2023 - 13:34 144/71 13:34 46 10/29/2023 11:11 174.6 11:10 175/77 11:10 54 10/29/2023 00:14 176.6 00:13 128/77 00:13 86 10/28/2023 22:41 176.8 22:39 151/86 22:39 48 10/27/2023 21:22 177.0 21:21 132/71 21:21 87 10/27/2023 19:33 176.4 19:31 137/70 19:31 82 10/26/2023 - 23:18 129/71 23:18 76 10/26/2023 20:04 173.4 20:02 165/79 20:02 62 10/26/2023 00:02 173.8 - - 10/25/2023 - 19:00 139/75 19:00 104 10/24/2023 - 21:45 147/73 21:45 81 10/24/2023 - 21:36 148/83 21:36 83 10/24/2023 21:32 173.4 21:31 140/73 21:31 84 10/24/2023 10:54 173.4 10:52 147/76 10:52 43 10/23/2023 - 16:54 173/75 16:54 87 10/22/2023 21:41 178.0 21:39 170/82 21:39 53 10/21/2023 23:34 176.4 23:32 101/67 23:32 81 10/20/2023 22:33 177.6 22:31 158/81 22:31 82 Source: [employer]; [employer] Assessment: Blood pressure labile over night, hypertensive this morning. Bradycardia continues. Alert Responses: Feels frustrated about keeping BP under control Other Responses: Doesn't have a [facility] scheduled visit/appt. this week Has shared this feeling of frustration with someone Called [facility] ( identified by full name and date of ) to review data and assess for any symptoms, changes, questions or concerns. Maryellen reports he is doing well and is feeling well. He states he is unsure as to why his blood pressure is fluctuating so much. He reports he has had no changes in his medications, diet or day to day activities. Maryellen denies any headaches, dizziness, lightheadedness, fainting, blurred/changed vision, flushing of face, ear/jaw/neck/arm pain or discomfort, chest pain, palpitations, racing of heart, nausea, vomiting, change in mental status, unusual fatigue or weakness. Maryellen reports occasional shortness of breath but notes that he has experienced this from time to time throughout his life, he believes it is related to his anxiety. Maryellen denies any anxiety last evening and currently. He reports he takes lorazapam 0.5mg by mouth daily as needed for anxiety (takes this once every 1-2 weeks). He has an appointment for biofeedback next week and plans to attend. Maryellen states he has been told he may need a pacemaker but does not want to go that route if he does not have to. [facility] cardiology consult is pending; update requested. Maryellen reports he started bethanechol chloride last night as prescribed from community urologist Dr. Lew. Maryellen reports he was able to contact Dr. Lew's office to confirm that he is to continue taking finasteride as prescribed. Intervention(s)/Plan: Reviewed/Educated on signs/symptoms of hypertension, risks (including stroke, heart attack, heart disease, kidney and eye disease, as well as many other problems), treatment, when and where to seek help (call PACT vs. ). Reviewed/Educated [place] on normal blood pressure: less than 120/80 Reviewed/Educated [place] on target goal for blood pressure is greater than 90/60 and less than 130/80. Contact your provider if blood pressure is frequently out of this range. Reviewed/Educated if blood pressure suddenly exceeds 180/100, wait five minutes and then test your blood pressure again. If your readings are still unusually high, call or go to nearest ER for evaluation/treatment. Reviewed/Educated on normal heart rate: 60-100 Magnolia's heart rate has frequently been in the 40s. Reviewed/Educated [place] on medications and instructed to take all medications as ordered. Reviewed/Educated [place] on effects of sodium and caffeine on blood pressure and importance of maintaining low sodium diet (less than 2000mg per day) and avoiding caffeine. Hydrate well with water throughout the day (at least 64 ounces daily). Reminded [facility] of the following upcoming appointments: 11/20/2023 11:00 CWM/SO/BIOFEEDBACK GRP [facility] verbalized understanding of all education and denied any questions or concerns. Forwarding to provider to please review and advise of any changes in plan of care. would benefit from cardiology follow up; community care cardiology consult is pending, update requested. Thank you! TYPE OF ENCOUNTER: Telephone Length of call: 11-20 minutes [employer] HE[employer] COACHING SKILLS Coaching or Motivational Interviewing skills used. /simone/ KAVITHA Albert, RN [facility]-Home Telehealth Moving Van Driver Signed: 11/17/2023 17:18 Receipt Acknowledged By: 11/18/2023 01:05 /es/ MARIIA BROUSSARD MD PHYSICIAN 11/20/2023 08:37 /es/ KYLER DURON RN REGISTERED NURSE 11/21/2023 09:36 /es/ ABDI ALMARAZ LPN LPN 11/17/2023 ADDENDUM STATUS: COMPLETED Suicide Screen: C-SSRS Screening Campbell Suicide Severity Rating Scale (C-SSRS) screener 1. Over the past month, have you wished you were or wished you could go to sleep and not wake up? No 2. Over the past month, have you had any actual thoughts of killing yourself? No 3. Over the past month, have you been thinking about how you might do this? Response not required due to responses to other questions. 4. Over the past month, have you had these thoughts and had some intention of acting on them? Response not required due to responses to other questions. 5. Over the past month, have you started to work out or worked out the details of how to kill yourself? Response not required due to responses to other questions. 6. If yes, at any time in the past month did you intend to carry out this plan? Response not required due to responses to other questions. 7. In your lifetime, have you ever done anything, started to do anything, or prepared to do anything to end your life (for example, collected pills, obtained a gun, gave away valuables, went to the roof but didn't jump)? No 8. If YES, was this within the past 3 months? Response not required due to responses to other questions. /simone/ KAVITHA Albert, RN [facility]-Home Telehealth Moving Van Driver Signed: 11/17/2023 17:19 ALCIRA LAYNE [place] [facility]
--- OUTSIDE RECORDS SUMMARY | 2024-08-21 23:28 | XMS_ITS | Encounter Summary ---
Author Name [place] Address [address] [place] [address] Care Team Providers Care Flour Blender Name Role Phone MARIIA BROUSSARD Primary Care [...] Patient's Relationship to Policy [employer] EXPRESS SCRIP[facility] ([id number]) PRESCRIPT ION [facility] Mar 11, 2018 [id number] MADAI DELUNA OTHER RELATIONSHIP [facility] PREFERRED PROVIDER ORGANIZAT ION (PPO) Jun 11, 2011 [id number] MADAI DELUNA PATIENT HUMANA [facility] (WNR) MEDICARE ADVANTAGE [facility] (WNR) Sep 11, 2022 [id number] [phone] GILL DELUNA PATIENT MEDICARE (WNR) MEDICARE (M) PART A January 10, 2012 PART A [id number] [place] PATIENT MEDICARE (WNR) MEDICARE (M) PART B January 10, 2012 PART B [id number] [phone] [place] PATIENT MEDICARE (WNR) MEDICARE (M) PART A January 10, 2012 PART A [id number] [phone] GILL DELUNA PATIENT UNICARE PREFERRED PROVIDER ORGANIZAT ION (PPO) [place] STATE INDE* * Mar 11, 2015 [id number] MADAI DELUNA SPOUSE [facility] (WNR) MEDICARE ADVANTAGE [facility] (WNR) Mar 11, 2021 [id number] GILL DELUNA PATIENT WELLCARE [facility] (WNR) MEDICARE ADVANTAGE [facility] (WNR) Sep 11, 2021 [id number] [phone] GILL DELUNA PATIENT Selected Encounter This section includes the information on record at [place] for the Encounter. Date/Time Encounter Type Encounter Description Reason Pro vider Source Dec 11, 2023 11:00 AM Outpatient Encounter [facility] TREATMENT [facility] Encounter Template Text not used by [place] Plan of Treatment: Future Appointments (+ 6 months) and Future Tests (+/- 45 days) The Plan of Treatment section includes future care activities for the patient from all [place] treatmentfacilities. This section includes future appointments and future orders which are active, pending or scheduled. Future Appointments This section includes appointments that were scheduled to occur 6 months from the date of the Encounter, up to a maximum of 20 appointments. The data comes from all [place] treatment facilities. Appointment Date/Time Appointment Type Appointme nt Facility Name Dec 12, 2023 09:00 AM [facility] January 15, 2024 01:40 PM [facility] - [facility] January 22, 2024 08:30 AM AMBULATORY - MEDICINE [facility] Mar 01, 2024 10:00 AM AMBULATORY - MEDICINE [facility] May 16, 2024 11:30 AM [facility] Jun 11, 2024 08:30 AM AMBULATORY - MEDICINE [facility] Social History: Smoking Status (Most current) and Tobacco Use (All prior to encounter date) This section includes the most current, and the historical, smoking and tobacco- related health factors from the [place] facility where the Encounter took place. Current Smoking Status This section includes the most current smoking, or tobacco-related health factor, from the [facility] where the Encounter took place. Date/Time Current Smoking Status Comment Nadine jose Jul 06, 2021 09:30 AM VA-TOBACCO NEVER USED [place] Tobacco Use History This section includes a history of the smoking, or tobacco-related health factors, that were collected on or before the date of the Encounter. The data comes from the [facility] where the Encounter took place. Date/Time Smoking Status/Tobacco Use Comment F acility Apr 30, 2020 01:00 PM VA-TOBACCO FORMER USER [place] Apr 30, 2020 01:00 PM VA-TOBACCO QUIT 15 YRS OR MORE [place] January 09, 2019 02:16 PM VA-TOBACCO FORMER USER [place] January 09, 2019 02:16 PM VA-TOBACCO QUIT 15 YRS OR MORE [place] Feb 13, 2018 11:05 AM QUIT TOBACCO USE > 7 YEARS AGO [place] Feb 28, 2017 01:42 PM LIFETIME NON-TOBACCO USER quit 1976 [place] Nov 17, 2015 09:53 AM QUIT TOBACCO USE > 7 YEARS AGO [place] February 08, 2002 03:04 PM QUIT TOBACCO USE > 7 YEARS AGO Patient states he smoked from age [age] and quit. [place] Aug 10, 2001 03:42 PM NON-TOBACCO USER Stopped tobacco 35 years ago [place] Encounter Notes: All associated encounter notes This section contains the clinical notes associated to the Encounter. Date/Time Encounter Note(s) Provider Source Dec 11, 2023 03:04 PM CLERICAL NOTE: LOCAL TITLE: APPOINTMENT NO SHOW STANDARD TITLE: CLERICAL NOTE DATE OF NOTE: DEC 11, 2023@15:04 ENTRY DATE: DEC 11, 2023@15:04:49 AUTHOR: PORFIRIO SHEETS EXP COSIGNER: URGENCY: STATUS: COMPLETED Patient Name: GILL DELUNA Patient SSN: [id number] Date and time of Appointment No show : 12/11/23 11:00 PATIENT PHONE - PHONE NUMBER [CELLULAR] - Patient's medical record was reviewed. Follow-up actions were determined and initiated: Please check/complete as applies: [X]Telephoned Directly [ ]Re-scheduled for next available appt [ ]Sent a N0-show letter ( must call for appointment) [ ]Other (Emergent/Overbook, etc.): Additional Comments: was out of town and was unable to make group. He does intend to make next week's group. alerting kimberley to please no show todays appointment AND see new RTC thank you Future Clinic Visits 12/12/2023 09:00 CWM/SO/TELE/PHARM/PACT 2 01/15/2024 13:40 COM CARE-CARDIOLOGY 01/22/2024 08:30 CWM/SO/PODIATRY/ROSS 05/16/2024 11:30 CWM/NO/DERMATOLOGY C/AM 05/30/2024 09:30 CWM/SO/PACT 5 06/03/2024 13:00 CWM/SO/NUTRITION1 /es/ Porfirio Sheets, PhD Clinical Psychologist Signed: 12/11/2023 15:05 Receipt Acknowledged By: 12/12/2023 09:03 /simone/ LIEN SHEETS,PORFIRIO [place]
--- OUTSIDE RECORDS SUMMARY | 2024-08-21 23:28 | XMS_ITS | Encounter Summary ---
Author Name [place] Address [address] [place] [address] Care Team Providers Care Senior Electrical Designer Name Role Phone MARIIA BROUSSARD Primary Care [...] Patient's Relationship to Policy [employer] SCRIP[employer] ([id number]) PRESCRIPT ION [facility] Mar 11, 2018 [id number] MADAI DELUNA OTHER RELATIONSHIP [facility] PREFERRED PROVIDER ORGANIZAT ION (PPO) Jun 11, 2011 [id number] MADAI DELUNA PATIENT HUMANA [facility] (WNR) MEDICARE ADVANTAGE [facility] (WNR) Sep 11, 2022 [id number] [phone] [place] PATIENT MEDICARE (WNR) MEDICARE (M) PART A January 10, 2012 PART A [id number] MIKIE G[place] PATIENT MEDICARE (WNR) MEDICARE (M) PART B January 10, 2012 PART B [id number] MIKIE GILL PATIENT MEDICARE (WNR) MEDICARE (M) PART A January 10, 2012 PART A [id number] GILL DELUNA PATIENT [employer] PREFERRED PROVIDER ORGANIZAT KIANNA (PPO) [place] STATE THU[place]* * Mar 11, 2015 [id number] MADAI DELUNA SPOUSE [facility] (WNR) MEDICARE ADVANTAGE [facility] (WNR) Mar 11, 2021 [id number] GILL DELUNA PATIENT WELLCARE [facility] (WNR) MEDICARE ADVANTAGE [facility] (WNR) Sep 11, 2021 [id number] MIKIE G[place] PATIENT Selected Encounter This section includes the information on record at [place] for the Encounter. Date/Time Encounter Type Encounter Description Reason Pro vider Source Dec 12, 2023 10:56 AM Outpatient Encounter [facility] Encounter Template Text not used by [place] Plan of Treatment: Future Appointments (+ 6 [...] 15, 2024 01:40 PM AMBULATORY - MEDICINE [facility] January 22, 2024 08:30 AM AMBULATORY - MEDICINE [facility] Mar 01, 2024 10:00 AM AMBULATORY - MEDICINE [facility] May 16, 2024 11:30 AM AMBULATORY MEDICINE [facility] Jun 11, 2024 08:30 AM AMBULATORY - MEDICINE [facility] Social History: Smoking Status (Most current) [...] VA-TOBACCO NEVER USED [facility] [place] [facility] Encounter Notes: All associated encounter notes This section contains the clinical notes associated to the Encounter. Date/Time Encounter Note(s) Provider Source Dec 12, 2023 10:56 AM DIABETOLOGY NOTE: LOCAL TITLE: INSULIN PUMP/CGM DOWNLOAD (T) STANDARD TITLE: DIABETOLOGY NOTE DATE OF NOTE: DEC 12, 2023@10:56 ENTRY DATE: DEC 12, 2023@10:56:51 AUTHOR: LUX ARMSTRONG EXP COSIGNER: URGENCY: STATUS: COMPLETED Please select: Personal Continuous Glucose Monitor- DEXCOM G7 Date of Documentation:Dec Please see attached scanned document in [employer]. /simone/ LUX ARMSTRONG CLINICAL AUTOMOBILE RENTAL CLERK Signed: 12/12/2023 10:57 LUX ARMSTRONG [place]
--- OUTSIDE RECORDS SUMMARY | 2024-08-21 23:28 | XMS_ITS | Encounter Summary ---
Author Name [facility] [place] Address [address] [place] [address] Care Team Providers Care Injection Molding Machine Offbearer Name Role Phone MARIIA BROUSSARD Primary Care [...] Patient's Relationship to Policy Mancera EXPRESS SCRIPTS ([id number]) PRESCRIPT ION [facility] Mar 11, 2018 [id number] MADAI DELUNA OTHER RELATIONSHIP [facility] PREFERRED PROVIDER ORGANIZAT ION (PPO) Jun 11, 2011 [id number] [phone] MADAI DELUNA PATIENT HUMANA [facility] (WNR) MEDICARE ADVANTAGE [facility] (WNR) Sep 11, 2022 [id number] [phone] GILL DELUNA PATIENT MEDICARE (WNR) MEDICARE (M) PART A January 10, 2012 PART A [id number] [place] PATIENT MEDICARE (WNR) MEDICARE (M) PART B January 10, 2012 PART B [id number] GILL DELUNA PATIENT MEDICARE (WNR) MEDICARE (M) PART A January 10, 2012 PART A [id number] GILL DELUNA PATIENT UNICARE PREFERRED PROVIDER ORGANIZAT ION (PPO) [place] RE STATE THUYE* * Mar 11, 2015 [id number] MADAI DELUNA SPOUSE [facility] (WNR) MEDICARE ADVANTAGE [facility] (WNR) Mar 11, 2021 [id number] GILL DELUNA PATIENT WELLCARE [facility] (WNR) MEDICARE ADVANTAGE [facility] (WNR) Sep 11, 2021 [id number] [phone] MIKIE GILL PATIENT Selected Encounter This section includes the information on record at [place] for the Encounter. Date/Time Encounter Type Encounter Description Reason Pro vider Source Nov 10, 2023 12:00 PM Outpatient Encounter COMMUNITY CARE CONSULT IHE Encounter Template Text not used by [place] Plan of Treatment: Future Appointments (+ 6 months) and Future Tests (+/- 45 days) The Plan of Treatment section includes future care activities for the patient from all [place] treatmentfacilities. This section includes future appointments and future orders which are active, pending or scheduled. Future Appointments This section includes appointments that were scheduled to occur 6 months from the date of the Encounter, up to a maximum of 20 appointments. The data comes from all [place] treatment facilities. Appointment Date/Time Appointment Type Appointme nt Facility Name Nov 13, 2023 12:00 PM AMBULATORY - MEDICINE [place] [facility] Nov 20, 2023 11:00 AM AMBULATORY - MEDICINE [place] [facility] [place] [facility] Nov 27, 2023 11:00 AM AMBULATORY - MEDICINE [place] [facility] [place] [facility] Nov 28, 2023 11:00 AM AMBULATORY - MEDICINE [place] [facility] [place] [facility] Dec 04, 2023 01:00 PM AMBULATORY - NONE [place] [facility] [place] [facility] Dec 11, 2023 11:00 AM AMBULATORY - MEDICINE [place] [facility] [place] [facility] Dec 12, 2023 09:00 AM AMBULATORY - MEDICINE [place] [facility] [place] [place] [facility] January 15, 2024 01:40 PM AMBULATORY - MEDICINE [facility] [place] [facility] January 22, 2024 08:30 AM AMBULATORY - MEDICINE [facility] Mar 01, 2024 10:00 AM AMBULATORY - MEDICINE [facility] Lab Results: +/- 30 days of the encounter This section includes the Chemistry and Hematology Lab Results on record with [place] for the patient. Radiology Reports and Pathology Reports are provided separately, in subsequent sections. Lab Results This section contains the Chemistry/Hematology Results that were resulted 30 days before or 30 daysafter the date of the Encounter. Date/Time Source Result Type Result - Unit Interpretation Reference Range Comment Nov 02, 2023 12:00 AM [place] OCCULT BLOOD FIT X1 SCREEN(IN-HOUSE) Sp ecimen Type: FECES No comment entered. Ordering Provider: MARIIA CABRAL Report Released Date/Time: Oct 27, 2023 12:56 PM Reporting Lab: [address] [address] Performing Lab: [address] [address] OCCULT BLOOD (FIT)#1 OF 1 Negative NEG Social History: Smoking Status (Most current) and Tobacco Use (All prior to encounter date) This section includes the most current, and the historical, smoking and tobacco- related health factors from the [place] facility where the Encounter took place. Current Smoking Status This section includes the most current smoking, or tobacco-related health factor, from the [place] facility where the Encounter took place. Date/Time Current Smoking Status Comment Nadine jose Dec 12, 2022 03:10 PM VA-TOBACCO NEVER USED [facility] Encounter Notes: All associated encounter notes This section contains the clinical notes associated to the Encounter. Date/Time Encounter Note(s) Provider Source Nov 10, 2023 12:00 PM NONVA CONSULT: LOCAL TITLE: COMMUNITY CARE-CONSULT RESULT NOTE STANDARD TITLE: NONVA CONSULT DATE OF NOTE: NOV 10, 2023@12:00 ENTRY DATE: FEBRUARY 01, 2024@07:13:05 AUTHOR: JUSTICE GOMES COSIGNER: URGENCY: STATUS: COMPLETED VistA Imaging - Scanned Document [facility]-OFFICE NOTES SCANNED DOCUMENT SIGNATURE NOT REQUIRED Electronically Filed: 02/01/2024 by: JUSTICE GOMES PRODUCT PICKER JUSTICE GOMES [facility]
--- OUTSIDE RECORDS SUMMARY | 2024-08-21 23:28 | XMS_ITS ---
Author Name [place] Address [address] [place] [address] Care Team Providers Care Strip Feeder Name Role Phone MARIIA BROUSSARD Primary Care [...] Patient's Relationship to Policy [employer] EXPRESS SCRIPTS ([id number]) PRESCRIPT ION [facility] Mar 11, 2018 [id number] [phone] MADAI DELUNA OTHER RELATIONSHIP [facility] PREFERRED PROVIDER ORGANIZAT ION (PPO) Jun 11, 2011 [id number] MADAI DELUNA PATIENT HUMANA [facility] (WNR) MEDICARE ADVANTAGE [facility] (WNR) Sep 11, 2022 [id number] [phone] [place] PATIENT MEDICARE (WNR) MEDICARE (M) PART A January 10, 2012 PART A [id number] [phone] MIKIE GILL PATIENT MEDICARE (WNR) MEDICARE (M) PART B January 10, 2012 PART B [id number] [phone] GILL DELUNA PATIENT MEDICARE (WNR) MEDICARE (M) PART A January 10, 2012 PART A [id number] [phone] GILL DELUNA PATIENT UNICARE PREFERRED PROVIDER ORGANIZAT ION (PPO) [place] RE STATE INDE* * Mar 11, 2015 [id number] MADAI DELUNA SPOUSE [facility] (WNR) MEDICARE ADVANTAGE [facility] (WNR) Mar 11, 2021 [id number] GILL DELUNA PATIENT WELLCARE [facility] (WNR) MEDICARE ADVANTAGE [facility] (WNR) Sep 11, 2021 [id number] GILL DELUNA PATIENT Selected Encounter This section includes the information on record at [place] for the Encounter. Date/Time Encounter Type Encounter Description Reason Provider Source Dec 06, 2023 02:21 PM Outpatient Encounter HT NON-VIDEO MONITORING ICD-10-CM I11.9 Hypertensive heart disease without heart failure ALCIRA LAYNE Belle Encounter Template Text not used by [place] Assessments - Encounter Diagnoses This section includes the primary and secondary diagnoses documented for the Encounter. Date/Time Primary/Secondary Diagnosis Diagnosis Name Provider Source Dec 06, 2023 02:27 PM PRIMARY Hypertensive heart disease without heart failure [facility]AYNE [facility] [place] [place] [facility] Plan of Treatment: Future Appointments [...] - MEDICINE [place] [facility] Dec 12, 2023 09:00 AM AMBULATORY - MEDICINE [place] [facility] January 15, 2024 01:40 PM AMBULATORY - MEDICINE [place] [facility] January 22, 2024 08:30 AM AMBULATORY - MEDICINE [facility] Mar 01, 2024 10:00 AM AMBULATORY - MEDICINE [facility] [place] [facility] May 16, 2024 11:30 AM AMBULATORY - MEDICINE [facility] [place] [place] [facility] Social History: Smoking Status (Most [...] 12, 2022 03:10 PM VA-TOBACCO NEVER USED [facility] Encounter Notes: All associated encounter notes This section contains the clinical notes associated to the Encounter. Date/Time Encounter Note(s) Provider Source Dec 06, 2023 02:22 PM CARE COORDINATION HOME TELEHEALTH SUMMARIZATION NOTE: LOCAL TITLE: HT MONTHLY MONITOR NOTE STANDARD TITLE: CARE COORDINATION HOME TELEHEALTH SUMMARIZATION DATE OF NOTE: DEC 06, 2023@14:22 ENTRY DATE: DEC 06, 2023@14:22:24 AUTHOR: ALCIRA LAYNE EXP COSIGNER: URGENCY: STATUS: COMPLETED The is enrolled in the Home Telehealth (HT) program and continues to be monitored via HT technology. The data sent by the [place] is reviewed and analyzed by the staff, who provide ongoing case management and [place] health education while communicating and collaborating with the health care team as appropriate. This note covers a total of 30 minutes for the month monitored. Month monitored: November 2023 Dx: Hypertension /es/ KAVITHA Albert, RN RPM-Home Telehealth Baggage Handling Supervisor Signed: 12/06/2023 14:27 ALCIRA LAYNE [facility]
--- OUTSIDE RECORDS SUMMARY | 2024-08-21 23:29 | XMS_ITS | Encounter Summary ---
Author Name [place] Address [address] [place] [address] Care Team Providers Care Fiber Worker Name Role Phone MARIIA BROUSSARD Primary Care [...] Patient's Relationship to Policy [employer] EXPRESS SCRIPTS ([id number]) PRESCRIPT ION [facility] Mar 11, 2018 [id number] [phone] MADAI DELUNA OTHER RELATIONSHIP [facility] PREFERRED PROVIDER ORGANIZAT ION (PPO) Jun 11, 2011 [id number] MADAI DELUNA PATIENT HUMANA [facility] (WNR) MEDICARE ADVANTAGE [facility] (WNR) Sep 11, 2022 [id number] [phone] GILL DELUNA PATIENT MEDICARE (WNR) MEDICARE (M) PART A January 10, 2012 PART A [id number] [phone] GILL DELUNA PATIENT MEDICARE (WNR) MEDICARE (M) PART B January 10, 2012 PART B [id number] GILL DELUNA PATIENT MEDICARE (WNR) MEDICARE (M) PART A January 10, 2012 PART A [id number] [phone] GILL DELUNA PATIENT UNICARE PREFERRED PROVIDER ORGANIZAT ION (PPO) [place] RE STATE INDE* * Mar 11, 2015 [id number] MADAI DELUNA SPOUSE [facility] (WNR) MEDICARE ADVANTAGE [facility] (WNR) Mar 11, 2021 [id number] GILL DELUNA PATIENT WELLCARE [facility] (WNR) MEDICARE ADVANTAGE [facility] (WNR) Sep 11, 2021 [id number] GILL DELUNA PATIENT Selected Encounter This section includes the information on record at [place] for the Encounter. Date/Time Encounter Type Encounter Description Reason Provider Source Sep 15, 2023 03:20 PM HC PRO PHONE CALL 21-30 MIN TELEPHONE/MEDICIN E ICD-10-CM I11.9 Hypertensive heart disease without heart failure ALCIRA LAYNE Belle Encounter Template Text not used by [place] Assessments - Encounter Diagnoses This section includes the primary and secondary diagnoses documented for the Encounter. Date/Time Primary/Secondary Diagnosis Diagnosis Name Provider Source Sep 15, 2023 03:20 PM PRIMARY Hypertensive heart disease without heart failure ALCIRA LAYNE [facility] Plan of Treatment: Future Appointments [...] Date/Time Appointment Type Appointme nt Facility Name Oct 02, 2023 10:45 AM AMBULATORY - MEDICINE [facility] [place] [facility] Oct 23, 2023 11:00 AM AMBULATORY - PSYCHIATRY [place] [facility] [place] [facility] Oct 23, 2023 11:01 AM AMBULATORY - [facility]CHIATRY [facility] Oct 27, 2023 08:00 AM AMBULATORY - MEDICINE [place] [facility] [place] [facility] Oct 27, 2023 11:00 AM AMBULATORY - MEDICINE [facility] Oct 30, 2023 06:00 PM AMBULATORY - MEDICINE [place] [facility] [place] [facility] Nov 07, 2023 10:00 AM AMBULATORY - MEDICINE [place] [facility] [place] [facility] Nov 10, 2023 01:15 PM AMBULATORY - MEDICINE [facility] [place] [facility] Nov 13, 2023 12:00 PM AMBULATORY - MEDICINE [facility] [place] [facility] Nov 20, 2023 11:00 AM AMBULATORY - MEDICINE [facility] [place] [facility] Nov 27, 2023 11:00 AM AMBULATORY - MEDICINE [facility] [place] [facility] Nov 28, 2023 11:00 AM AMBULATORY - MEDICINE [facility] [place] [facility] Dec 04, 2023 01:00 PM AMBULATORY - NONE [facility] [place] [facility] Dec 11, 2023 11:00 AM AMBULATORY - MEDICINE [place] [facility] [place] [facility] Dec 12, 2023 09:00 AM AMBULATORY - MEDICINE [place] [facility] [place] [facility] January 15, 2024 01:40 PM AMBULATORY - MEDICINE [place] [facility] [place] [facility] January 22, 2024 08:30 AM AMBULATORY - MEDICINE [facility] Mar 01, 2024 10:00 AM AMBULATORY - MEDICINE [place] [facility] Lab Results: +/- 30 days of [...] Result - Unit Interpretation Reference Range Comment Aug 21, 2023 10:03 AM [place] MICROSCOPIC AUTOMATED, URINE Specimen Type: URINE Comment: If Glucose = >500 and Ketones are positive, please alert the Physician. Ordering Provider: MARIIA TUCKER Report Released Date/Time: Aug 17, 2023 08:43 AM Reporting Lab: [facility] [place] [facility] [address] [facility] [address] Performing Lab: [facility] [address] [facility] [address] UA WBC 11-20 /[HPF] H 0-5 UA BACTERIA 1+ /[HPF] NoneObs UA RBC 0-2 /[HPF] 0-3 Aug 21, 2023 10:03 AM [place] URINALYSIS Specimen Type: URINE Comment: If Glucose = >500 and Ketones are positive, please alert the Physician. Ordering Provider: MARIIA TUCKER Report Released Date/Time: Aug 17, 2023 08:43 AM Reporting Lab: [address] [address] Performing Lab: [address] [address] UA COLOR Light-Yellow Yellow UA APPEARANCE Clear Clear UA GLUCOSE 50 mg/dL Negative UA KETONES NEGATIVE mg/dL Negative UA BLOOD NEGATIVE mg/dL Negative UA PROTEIN NEGATIVE mg/dL Negative UA NITRITE NEGATIVE mg/dL Negative UA BILIRUBIN NEGATIVE mg/dL Negative UA SPECIFIC GRAVITY 1.015 L 1.016-1.022 UA pH 5.0 5.0-9.0 UA UROBILINOGEN <2.0 mg/dL <2.0 UA LEUKOCYTE SMALL Negative Social History: Smoking Status (Most current) and [...] 12, 2022 03:10 PM VA-TOBACCO NEVER USED [facility] Pathology Reports: +/- 30 days of the encounter Pathology Reports For cases when an order for pathology services may have been completed prior to the date of the Encounter, the report list includes the Pathology Reports that were completed up to 30 days before dateof the Encounter. For cases when an order for pathology services may have been completed after the date of the Encounter, the report list also includes the Pathology Reports that were completed up to30 days after date of the Encounter. The data comes from all VA treatment facilities. Date/Time Pathology Report Provider Source Aug 21, 2023 10:03 AM LR MICROBIOLOGY RE PORT: Reporting Lab: [facility] [CLIA# [id number]] [address] [place] [address] Accession [UID]: [id number] [[id number]] Received: Aug 21, 2023@10:03 Collection sample: URINE CLEAN CATCH Collection date: Aug 21, 2023 10:03 Site/Specimen: URINE Provider: MARIIA BROUSSARD Test(s) ordered: URINE CULTURE(MWROX).......... completed: Aug 25, 2023 08:27 * BACTERIOLOGY FINAL REPORT => Aug 25, 2023 08:27 TECH CODE: [id number] Bacteriology Remark(s): NO GROWTH IN 24 HOURS, FINAL REPORT TO FOLLOW. <10,000 CFU/ML GRAM POSITIVE (NOT OTHERWISE SPECIFIED) =--=--=--=--=--=--=--=--=--=--=-- =--=--=--=--=--=--=--=--=--=--=-- =--=--=--=-- Performing Laboratory: Bacteriology Report Performed By: [facility] [CLIA# [id number]] [address] [place] [address] [facility]LS[facility] TOBISA [place] Encounter Notes: All associated encounter notes This section contains the clinical notes associated to the Encounter. Date/Time Encounter Note(s) Provider Source Sep 15, 2023 03:20 PM CARE COORDINATION HOME TELEHEALTH FOLLOW-UP NOTE: LOCAL TITLE: HT INTERVENTION NOTE STANDARD TITLE: CARE COORDINATION HOME TELEHEALTH FOLLOW-UP NOTE DATE OF NOTE: SEP 15, 2023@15:20 ENTRY DATE: SEP 15, 2023@15:21:01 AUTHOR: ALCIRA LAYNE EXP COSIGNER: URGENCY: STATUS: COMPLETED [place] is actively enrolled in the Home Telehealth program. Review of data shows the following out of range responses: Late entry for 09/15/2023 GILL DELUNA (-[id number]) Vital Sign for: 08/17/2023 - 09/15/2023 (All times are EST; All weights are lbs) Primary DMP: VHA-HTN Comorbid(s): Summary Weight Sys BP Barnett BP HR Pain High 176.4 164 94 103 Low 170.1 121 66 44 Average 173.8 143 82 84 Date Time Wt Time Sys Barnett Time HR Time Pain 09/13/2023 23:32 174.7 23:31 140/78 23:31 101 09/12/2023 23:15 175.9 23:15 139/74 23:15 44 09/11/2023 23:06 175.2 23:06 144/94 23:06 83 09/09/2023 23:54 174.2 23:53 156/83 23:53 72 09/09/2023 01:42 173.6 01:41 136/84 01:41 82 09/06/2023 22:43 173.8 22:42 149/91 22:42 97 09/05/2023 10:49 170.7 10:48 150/87 10:48 73 09/03/2023 00:02 174.5 00:01 164/90 00:01 88 08/29/2023 19:00 174.7 23:59 150/91 23:59 89 08/28/2023 20:50 174.2 20:50 125/72 20:50 97 08/27/2023 23:13 173.0 23:12 121/68 23:12 74 08/26/2023 22:53 172.8 22:52 153/82 22:52 91 08/25/2023 23:38 175.7 23:37 151/89 23:37 95 08/24/2023 23:44 172.6 23:43 132/80 23:43 103 08/20/2023 22:15 176.4 22:14 149/83 22:14 89 08/18/2023 22:18 171.8 22:17 147/83 22:17 85 08/17/2023 19:27 170.1 19:26 124/66 19:26 58 Source: [employer]; [employer] System Assessment: Blood pressure and heart rate labile. Called [place] ( identified by full name and date of ) to review data and assess for any symptoms, changes, questions or concerns. states he does not understand why his blood pressure is labile but reports that he has had increased stressors with the holidays, traveling a lot and stated I've had a lot going on. He reports he continues to work, enjoys his job, does not think he will retire any time soon. currently denies any headaches, dizziness, lightheadedness, blurred/changed vision, flushing of face, ear/jaw/neck/arm pain or discomfort, chest pain, shortness of breath, palpitations, racing of heart, unusual fatigue or weakness. He reports he continues to take his medications as prescribed. reports he drinks caffeine free diet soda at time, drinks 2-3 cups of coffee daily and has switched to [employer] lactose free milk. He reports he continues to do his best to maintain a low sodium diet and does not add salt to food. [place] reports his blood glucose levels are up and down He continues to use Freestyle Ugo sensor. Intervention(s)/Plan: Reviewed/Educated [place] on signs/symptoms of hypertension, risks (including stroke, heart attack, heart disease, kidney and eye disease, as well as many other problems), treatment, when and where to seek help (call PACT vs. ). Reviewed/Educated [place] on normal blood pressure: less than 120/80 Reviewed/Educated [place] on target goal for blood pressure of less than 130/80. Reviewed/Educated [place] on normal heart rate: 60-100 Reviewed/Educated if heart rate is frequently less than 60 or greater than 100, contact your provider. If heart rate is greater than 120, call or go to nearest ER for evaluation/treatment. Reviewed/Educated [place] on how to take an accurate blood pressure. Reviewed/Educated [place] on medications and instructed to take all medications as ordered. Do not abruptly stop taking medications unless advised by your provider. Do not self-adjust dosage or frequency of your medications without consulting with your provider. Contact your provider if you believe you are experiencing any side effects or have questions or concerns about your medication. Reviewed/Educated on effects of sodium and caffeine on blood pressure and importance of maintaining low sodium diet (less than 2000mg per day) and avoiding caffeine. Encouraged to eat fresh fruits, vegetables and meat. Do not add salt to food. Avoid fried, fast or processed foods. Read labels for sodium content and monitor portion sizes for meals. Hydrate well with water throughout the day (at least 64 ounces daily). Reviewed/Educated [place] to complete HT health check daily and as needed. Transmit all data to for review/monitoring. Ordered new/updated HT equipment to be mailed to [place]. Instructed to contact this production underwriter when he receives it to assist with set up. verbalized understanding of all education and denied any questions or concerns. He expressed appreciation for the call. Forwarding to provider for review. Thank you! TYPE OF ENCOUNTER: Telephone Length of call: 21-30 minutes WHOLE HEALTH COACHING SKILLS Coaching or Motivational Interviewing skills used. /simone/ KAVITHA Albert, RN [facility]-Home Telehealth Borematic Machine Operator Signed: 11/07/2023 20:55 Receipt Acknowledged By: 11/08/2023 08:40 /simone/ MARIIA BROUSSARD MD PHYSICIAN ALCIRA LAYNE CNTRL [facility]
--- OUTSIDE RECORDS SUMMARY | 2024-08-21 23:29 | XMS_ITS | Encounter Summary ---
Author Name [facility] [place] Address [address] [place] [address] Care Team Providers Care Occupational Health Technician Name Role Phone MARIIA BROUSSARD Primary Care [...] Patient's Relationship to Policy [employer] ([id number]) PRESCRIPT ION [facility] Mar 11, 2018 [id number] [phone] MADAI DELUNA OTHER RELATIONSHIP [facility] PREFERRED PROVIDER ORGANIZAT ION (PPO) Jun 11, 2011 [id number] MADAI DELUNA PATIENT [employer] [facility] (WNR) MEDICARE ADVANTAGE [facility] (WNR) Sep 11, 2022 [id number] [phone] GILL DELUNA PATIENT MEDICARE (WNR) MEDICARE (M) PART A January 10, 2012 PART A [id number] [place] PATIENT MEDICARE (WNR) MEDICARE (M) PART B January 10, 2012 PART B [id number] GILL DELUNA PATIENT MEDICARE (WNR) MEDICARE (M) PART A January 10, 2012 PART A [id number] GILL DELUNA PATIENT UNICARE PREFERRED PROVIDER ORGANIZAT ION (PPO) [place] RE [facility] INDE* * Mar 11, 2015 [id number] MADAI DELUNA [facility] (WNR) MEDICARE ADVANTAGE [facility] (WNR) Mar 11, 2021 [id number] GILL DELUNA PATIENT [employer] [facility] (WNR) MEDICARE ADVANTAGE [facility] (WNR) Sep 11, 2021 [id number] GILL DELUNA PATIENT Selected Encounter This section includes the information on record at [place] for the Encounter. Date/Time Encounter Type Encounter Description Reason Pro vider Source Oct 11, 2023 12:00 AM Outpatient Encounter EVENT (HISTORICAL) IHE Encounter Template Text not used by [place] Plan of Treatment: Future Appointments (+ 6 months) and Future Tests (+/- 45 days) The Plan of Treatment section includes future care activities for the patient from all [place] treatmentfacilities. This section includes future appointments and future orders which are active, pending or scheduled. Future Appointments This section includes appointments that were scheduled to occur 6 months from the date of the Encounter, up to a maximum of 20 appointments. The data comes from all [place] treatment facilities. Appointment Date/Time Appointment Type Appointme nt Facility Name Oct 23, 2023 11:00 AM AMBULATORY - [place]IATRY [place] [facility] [facility] Oct 23, 2023 11:01 AM AMBULATORY - [place]IATRY [place] [facility] Oct 27, 2023 08:00 AM AMBULATORY - MEDICINE [place] [facility] Oct 27, 2023 11:00 AM [facility] Oct 30, 2023 06:00 PM AMBULATORY - MEDICINE [place] [facility] [facility] Nov 07, 2023 10:00 AM AMBULATORY - MEDICINE [place] [facility] Nov 10, 2023 01:15 PM AMBULATORY - MEDICINE [place] [facility] [facility] Nov 13, 2023 12:00 PM AMBULATORY - MEDICINE [place] [facility] Nov 20, 2023 11:00 AM AMBULATORY - MEDICINE [place] [facility] Nov 27, 2023 11:00 AM AMBULATORY - MEDICINE [place] [facility] Nov 28, 2023 11:00 AM AMBULATORY - MEDICINE [facility] Dec 04, 2023 01:00 PM AMBULATORY - NONE [place] [facility] [facility] Dec 11, 2023 11:00 AM AMBULATORY - MEDICINE [place] [facility] Dec 12, 2023 09:00 AM AMBULATORY - MEDICINE [place] [facility] January 15, 2024 01:40 PM AMBULATORY - MEDICINE [place] [facility] January 22, 2024 08:30 AM AMBULATORY - MEDICINE [facility] Mar 01, 2024 10:00 AM AMBULATORY [facility] [place] [facility] Lab Results: +/- 30 days of the encounter This section includes the Chemistry and Hematology Lab Results on record with [place] for the patient. Radiology Reports and Pathology Reports are provided separately, in subsequent sections. Lab Results This section contains the Chemistry/Hematology Results that were resulted 30 days before or 30 daysafter the date of the Encounter. Date/Time Source Result Type Result - Unit Interpretation Reference Range Comment Nov 02, 2023 12:00 AM [place] OCCULT BLOOD FIT X1 SCREEN(IN-HOUSE) Sp ecimen Type: FECES No comment entered. Ordering Provider: MRAIIA CABRAL Report Released Date/Time: Oct 27, 2023 12:56 PM [facility] [address] [address] Per[facility] [address] [address] OCCULT BLOOD (FIT)#1 OF 1 Negative NEG Social History: Smoking Status (Most current) and Tobacco Use (All prior to encounter date) This section includes the most current, and the historical, smoking and tobacco- related health factors from the [place] facility where the Encounter took place. Current Smoking Status This section includes the most current smoking, or tobacco-related health factor, from the [place] facility where the Encounter took place. Date/Time Current Smoking Status Comment Facil gonzalezy Dec 12, 2022 03:10 PM VA-TOBACCO [facility] Encounter Notes: All associated encounter notes This section contains the clinical notes associated to the Encounter. Date/Time Encounter Note(s) Provider Source Oct 11, 2023 12:00 AM NONVA NOTE: LOCAL TITLE: NON-VA HOSPITALIZATIONS/ER STANDARD TITLE: NONVA NOTE DATE OF NOTE: OCT 11, 2023 ENTRY DATE: NOV 06, 2023@14:11:05 AUTHOR: CHRISS KELLY COSIGNER: URGENCY: STATUS: COMPLETED VistA Imaging - Scanned Document SCANNED DOCUMENT SIGNATURE NOT REQUIRED Electronically Filed: 11/06/2023 by: ZAKIYA KELLY Technology Services Manager ZAKIYA KELLY [facility]
--- OUTSIDE RECORDS SUMMARY | 2024-08-21 23:29 | XMS_ITS | Encounter Summary ---
Author Name [facility] [place] Address [address] [place] [address] Care Team Providers Care Pediatrician/Medical Doctor Name Role Phone MARIIA BROUSSARD Primary Care [...] Patient's Relationship to Policy [employer] ([id number]) PRESCRIPT ION [facility] Mar 11, 2018 [id number] MADAI DELUNA OTHER RELATIONSHIP [facility] PREFERRED PROVIDER ORGANIZAT ION (PPO) Jun 11, 2011 [id number] MADAI DELUNA PATIENT [facility]NA [facility] (WNR) MEDICARE ADVANTAGE [facility] (WNR) Sep 11, 2022 [id number] [phone] [place] PATIENT MEDICARE (WNR) MEDICARE (M) PART A January 10, 2012 PART A [id number] [place] PATIENT MEDICARE (WNR) MEDICARE (M) PART B January 10, 2012 PART B [id number] [phone] GILL DELUNA PATIENT MEDICARE (WNR) MEDICARE (M) PART A January 10, 2012 PART A [id number] [phone] GILL DELUNA PATIENT UNICARE PREFERRED PROVIDER ORGANIZAT ION (PPO) [place] RE STATE INDE* * Mar 11, 2015 [id number] MADAI DELUNA [facility] (WNR) MEDICARE ADVANTAGE [facility] (WNR) Mar 11, 2021 [id number] GILL DELUNA PATIENT [facility] (WNR) MEDICARE ADVANTAGE [facility] (WNR) Sep 11, 2021 [id number] GILL DELUNA PATIENT Selected Encounter This section includes the information on record at [place] for the Encounter. Date/Time Encounter Type Encounter Description Reason Pro vider Source Oct 26, 2023 08:17 AM Outpatient Encounter TELEPHONE PRIMARY CARE IHE Encounter Template Text not used by [place] Plan of Treatment: Future Appointments (+ 6 [...] Appointment Type Appointme nt Facility Name Oct 27, 2023 08:00 AM AMBULATORY - MEDICINE [place] [facility] [place] [facility] Oct 27, 2023 11:00 AM [facility] Oct 30, 2023 06:00 PM AMBULATORY - MEDICINE [place] [facility] [place] [facility] Nov 07, 2023 10:00 AM AMBULATORY - MEDICINE [place] [facility] [place] [facility] Nov 10, 2023 01:15 PM AMBULATORY - MEDICINE [facility] [place] [facility] Nov 13, 2023 12:00 PM AMBULATORY - MEDICINE [facility] [place] [facility] Nov 20, 2023 11:00 AM AMBULATORY - MEDICINE [place] [facility] [place] [facility] Nov 27, 2023 11:00 AM AMBULATORY - MEDICINE [place] [facility] [place] [facility] Nov 28, 2023 11:00 AM AMBULATORY - MEDICINE [place] [facility] [place] [facility] Dec 04, 2023 01:00 PM AMBULATORY - NONE [place] [facility] [place] [facility] Dec 11, 2023 11:00 AM AMBULATORY - MEDICINE [place] [facility] [place] [facility] Dec 12, 2023 09:00 AM AMBULATORY - MEDICINE [place] [facility] [place] [facility] January 15, 2024 01:40 PM AMBULATORY - MEDICINE [place] [facility] [place] [facility] January 22, 2024 08:30 AM AMBULATORY - MEDICINE [facility] Mar 01, 2024 10:00 AM [facility]ORY - [facility] Lab Results: +/- 30 days of the encounter This section includes the Chemistry and Hematology Lab Results on record with [place] for the patient. Radiology Reports and Pathology Reports are provided separately, in subsequent sections. Lab Results This section contains the Chemistry/Hematology Results that were resulted 30 days before or 30 daysafter the date of the Encounter. Date/Time Source Result Type Result - Unit Interpretation Reference Range Comment Nov 02, 2023 12:00 AM [place] OCCULT BLOOD FIT X1 SCREEN(IN-HOUSE) Sp ecimen Type: FECES No comment entered. Ordering Provider: MARIIA CABRAL Report Released Date/Time: Oct 27, 2023 12:56 PM Reporting Lab: [facility] [address] [facility] [address] Performing Lab: [facility] [address] [address] OCCULT BLOOD (FIT)#1 OF 1 Negative NEG [...] 12, 2022 03:10 PM VA-TOBACCO NEVER USED [facility] Encounter Notes: All associated encounter notes This section contains the clinical notes associated to the Encounter. Date/Time Encounter Note(s) Provider Source Oct 26, 2023 08:17 AM CARE COORDINATION HOME TELEHEALTH NOTE: LOCAL TITLE: HT NOTE STANDARD TITLE: CARE COORDINATION HOME TELEHEALTH NOTE DATE OF NOTE: OCT 26, 2023@08:17 ENTRY DATE: OCT 26, 2023@08:17:06 AUTHOR: MONTSERRAT LAYNE EXP COSIGNER: URGENCY: STATUS: COMPLETED Added the following two-way messages to 's HT device: Friendly reminder: Please remember to transmit data daily. Minimum requirement to remain on Home Telehealth program is a response rate of 70% or greater (five days per week.) Be well! -Montserrat Please call your Ice Guard Inspector if you have any concerns regarding Home Telehealth and the care you are receiving. Thank you & Be Well! -Montserrat /es/ LLOYD AlbertN, RN RPM-Home Telehealth Ice Guard Inspector Signed: 10/26/2023 08:17 [facility]
--- OUTSIDE RECORDS SUMMARY | 2024-08-21 23:29 | XMS_ITS | Encounter Summary ---
Author Name [facility] Organization [facility] Address [address] [place] [address] Care Team Providers Care Mannequin Decorator Name Role Phone MARIIA BROUSSARD Primary Care [...] Patient's Relationship to Policy [employer] EXPRESS SCRIPTS ([id number]) PRESCRIPT ION [facility] Mar 11, 2018 [id number] MADAI DELUNA OTHER RELATIONSHIP [facility] PREFERRED PROVIDER ORGANIZAT ION (PPO) Jun 11, 2011 [id number] MADAI DELUNA PATIENT HUMANA MCR (WNR) MEDICARE ADVANTAGE MCR (WNR) Sep 11, 2022 [id number] [phone] [place] PATIENT MEDICARE (WNR) MEDICARE (M) PART A January 10, 2012 PART A [id number] [place]IE [place] PATIENT MEDICARE (WNR) MEDICARE (M) PART B January 10, 2012 PART B [id number] [place] PATIENT MEDICARE (WNR) MEDICARE (M) PART A January 10, 2012 PART A [id number] [phone] GILL DELUNA PATIENT [place] PREFERRED PROVIDER ORGANIZAT ION (PPO) CRISTHIAN LY[place] STATE BRITTANIE* * Mar 11, 2015 [id number] MADAI DELUNA SPOUSE [facility] (WNR) MEDICARE ADVANTAGE MCR (WNR) Mar 11, 2021 [id number] [phone] [place] PATIENT [facility] (WNR) MEDICARE ADVANTAGE [facility] (WNR) Sep 11, 2021 [id number] [phone] GILL DELUNA PATIENT Selected Encounter This section includes the information on record at [place] for the Encounter. Date/Time Encounter Type Encounter Description Reason Provider Source Oct 23, 2023 11:01 AM OFFICE O/P EST MOD 30 MIN [facility] - IND ICD-10-CM F32.A Depression, unspecified THOMAS HERNANDES [place] Encounter Template Text not used by [place] Assessments - Encounter Diagnoses This section includes the primary and secondary diagnoses documented for the Encounter. Date/Time Primary/Secondary Diagnosis Diagnosis Name Provider Source Oct 23, 2023 11:43 AM PRIMARY Depression, unspecified THOMAS HERNANDES Oct 23, 2023 11:43 AM SECONDARY Anxiety disorder, unspecified THOMAS HERNANDES Oct 23, 2023 11:43 AM SECONDARY Obstructive sleep apnea (adult) (pediatric) THOMAS HERNANDES Plan of Treatment: Future Appointments (+ 6 [...] 27, 2023 08:00 AM AMBULATORY - MEDICINE [place] [facility] [place] [facility] Oct 27, 2023 11:00 AM AMBULATORY - MEDICINE [facility] Oct 30, 2023 06:00 PM AMBULATORY - MEDICINE [place] [facility] Nov 07, 2023 10:00 AM AMBULATORY - MEDICINE [place] [facility] Nov 10, 2023 01:15 PM AMBULATORY - MEDICINE [place] [facility] Nov 13, 2023 12:00 PM AMBULATORY - MEDICINE [place] [facility] [place] [place] [facility] Nov 20, 2023 11:00 AM AMBULATORY - MEDICINE [place] [place] [facility] Nov 27, 2023 11:00 AM AMBULATORY - MEDICINE [place] [facility] [place] [facility] Nov 28, 2023 11:00 AM AMBULATORY - MEDICINE [place] [facility] Dec 04, 2023 01:00 PM AMBULATORY - NONE [place] [facility] Dec 11, 2023 11:00 AM AMBULATORY - MEDICINE [place] [facility] Dec 12, 2023 09:00 AM AMBULATORY - MEDICINE [place] [facility] January 15, 2024 01:40 PM AMBULATORY - MEDICINE [place] [facility] [place] [place] [facility] January 22, 2024 08:30 AM [facility] Mar 01, 2024 10:00 AM AMBULATORY - MEDICINE [place] [facility] Lab Results: +/- 30 days of the encounter This section includes the Chemistry and Hematology Lab Results on record with [place] for the patient. Radiology Reports and Pathology Reports are provided separately, in subsequent sections. Lab Results This section contains the Chemistry/Hematology Results that were resulted 30 days before or 30 daysafter the date of the Encounter. Date/Time Source Result Type Result - Unit Interpretation Reference Range Comment Nov 02, 2023 12:00 AM PLAIN OCCULT BLOOD FIT X1 SCREEN(IN-HOUSE) Sp ecimen Type: FECES No comment entered. Ordering Provider: MARIIA CABRAL Report Released Date/Time: Oct 27, 2023 12:56 PM Reporting Lab: [facility] [address] [facility] [address] Performing Lab: [address] [address] OCCULT BLOOD (FIT)#1 OF 1 Negative NEG Social History: Smoking Status (Most current) and Tobacco Use (All prior to encounter date) This section includes the most current, and the historical, smoking and tobacco- related health factors from the [facility] where the Encounter took place. Current Smoking Status This section includes the most current smoking, or tobacco-related health factor, from the [facility] where the Encounter took place. Date/Time Current Smoking Status Comment Facil [facility] Jul 06, 2021 09:30 AM VA-TOBACCO NEVER USED PLAIN Tobacco Use History This section includes a history of the smoking, or tobacco-related health factors, that were collected on or before the date of the Encounter. The data comes from the [facility] where the Encounter took place. Date/Time Smoking Status/Tobacco Use Comment F acility Apr 30, 2020 01:00 PM VA-TOBACCO FORMER USER PLAIN Apr 30, 2020 01:00 PM VA-TOBACCO QUIT 15 YRS OR MORE PLAIN January 09, 2019 02:16 PM VA-TOBACCO FORMER USER PLAIN January 09, 2019 02:16 PM VA-TOBACCO QUIT 15 YRS OR MORE PLAIN Feb 13, 2018 11:05 AM QUIT TOBACCO USE > 7 YEARS AGO [facility] Feb 28, 2017 01:42 PM LIFETIME NON-TOBACCO USER quit 1975 [facility] Nov 17, 2015 09:53 AM QUIT TOBACCO USE > 7 YEARS AGO PLAIN February 08, 2002 03:04 PM QUIT TOBACCO USE > 7 YEARS AGO Patient states he smoked from age [age] and quit. PLAIN Aug 10, 2001 03:42 PM NON-TOBACCO USER Stopped tobacco 35 years ago PLAIN Encounter Notes: All associated encounter notes This section contains the clinical notes associated to the Encounter. Date/Time Encounter Note(s) Provider Source Oct 23, 2023 04:43 PM ADDENDUM: LOCAL TITLE: Addendum STANDARD TITLE: ADDENDUM DATE OF NOTE: OCT 23, 2023@16:43:08 ENTRY DATE: OCT 23, 2023@16:43:09 AUTHOR: THOMAS HERNANDES COSIGNER: URGENCY: STATUS: COMPLETED RTC Office with new provider 5 months. /simone/ Thomas Hernandes APRN, STAFF CLINICAL NURSE SPECIALIST Signed: 10/23/2023 16:43 Receipt Acknowledged By: 11/01/2023 14:06 /simone/ Matthew Cordoba Psy.D. SIGNAL CONSTRUCTOR, CLINICAL PSYCHOLOGIST == --- Original Document --- 10/23/23 CLINICAL NURSE SPECIALIST/MENTAL HEALTH: [facility] Medication management and brief psychotherapy [place] seen 30 minutes PROBLEMS AND SYMPTOMS TREATED THIS VISIT Record reviewed Mood - No acute concerns , Mood ok , still missing his son. Feels estranged from his son especially. 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 Sleep - [place] has sleep apnea. He is not using the CPAP consistently. Recommended he contact Respiratory for maintenance. He takes Melatonin 3mg at bedtime as needed with partial benefit. Appetite - good Ongoing discussion diet and exercise reviewed. Elevated A1c. MOVE recommended - will consider. [place] denies suicidal homicidal ideation plan or intent. He denies hallucinations. No delusions. Has activities and interests has community care therapist. [place] denies any acute concerns Recurrent Depression Recommended SSRI medication to reduce reliance on Lorazepam . ? [place] declines Stopped CC . Recommended he continue. He has unresolved issues , estrangement from son. CC submitted. Anxiety Lorazepam 0.5mg as needed anxiety , panic # 10 tablets with refills. BENZODIAZEPINE EDUCATION Indications for use, dosage guidelines, risks, benefits, precautions reviewed each visit. Opiate and benzodiazepine safety review each visit. is currently not prescribed any opiates for pain. Does not drink alcohol. Alerted [place] to potential for impaired balance coordination. Reviewed adverse effects on memory concentration. tolerating well. No duplicate prescriptions in mass PAT. Reviewed the importance of medication adherence. The [place] was advised to take medication daily as prescribed do not miss doses or abruptly discontinue. [place] was advised to always use caution when rising from a sitting position to prevent falls ,injury. [place] has provider contact information . [place] will call if he has any problems or concerns. MEDICATIONS Active Outpatient Medications (including Supplies): CARBOXYMETHYLCELLULOSE NA 0.5% OPH SOLN INSTILL 1 DROP ACTIVE INTO EACH EYE THREE TIMES A DAY CHLORTHALIDONE 25MG TAB TAKE ONE TABLET BY MOUTH ONCE ACTIVE DAILY TO REMOVE FLUID/CONTROL BLOOD PRESSURE CLONIDINE HCL 0.1MG TAB TAKE ONE TABLET BY MOUTH EVERY 12 ACTIVE (S) HOURS TO CONTROL BLOOD PRESSURE DEXTROSE 24GM/31GM SQUEEZE TUBE 1 TUBE BY MOUTH NEEDED ACTIVE FOR LOW BLOOD SUGAR FINASTERIDE 5MG TAB TAKE ONE TABLET BY MOUTH ONCE DAILY ACTIVE (S) FOR PROSTATE GLUCOSE SENSOR DEXCOM G7 USE 1 SENSOR DIRECTED EVERY 10 HOLD DAYS GLUCOSE SENSOR FREESTYLE IVETH 3 USE 1 SENSOR DIRECTED ACTIVE EVERY [...] ONE TABLET BY MOUTH ONCE DAILY ACTIVE (S) Non-VA FLUTICASONE NASAL SOLN,NASAL INTO EACH NOSTRIL ACTIVE MEDICAL HISTORY Active problems - Computerized Problem List is the source for the followin. Bradycardia 2. Benign Prostatic Hypertrophy with Outflow Obstruction ([facility] [id number]) 3. Erectile Dysfunction ([facility] [id number]) 4. Depression ([facility] [id number]) 5. Actinic keratosis 6. Basal cell carcinoma of skin 7. Vitamin D Deficiency ([facility] [id number]) 8. Contact dermatitis 9. Space-occupying lesion of brain 10. Second degree atrioventricular block 11. Cancer screening follow up 12. Hyperglycemia due to type 2 diabetes mellitus 13. PVD-peripheral vascular disease 14. Hyperlipidemia 15. Elevated PSA 16. Epistaxis * 17. Sleep apnea (SNOMED CT 43322463) 18. Superficial basal cell carcinoma 19. Gastroesophageal reflux disease (SNOMED CT 345611567) 20. Anxiety 21. Diabetes mellitus (SNOMED CT 76846761) 22. Essential hypertension (SNOMED CT 88973025) 23. Body mass index 25-29 - overweight 24. Recurrent major depression in partial remission LAB 08/2023 PLAN - Continue lorazepam 0.5mg . Take one tablet daily as needed # 10 tablets . CC Individual therapy submitted. RTC - did not report suicidal or homicidal ideation today but was given the number to the [employer] Crisis Line. The also understands to call 911 . Medication Reconciliation: Outpatient: Has the patient been taking medications [...] whether with a VA or non-VA provider. /LUPE Cortes APRN STAFF CLINICAL NURSE SPECIALIST Signed: 10/23/2023 11:44 THOMAS HERNANDES PLA[place] Oct 23, 2023 11:29 AM ACCOUNTING OF DISC LOSURES NOTE: LOCAL TITLE: STATE PRESCRIPTION DRUG MONITORING PROGRAM STANDARD TITLE: ACCOUNTING OF DISCLOSURES NOTE DATE OF NOTE: OCT 23, 2023@11:29:01 ENTRY DATE: OCT 23, 2023@11:29:01 AUTHOR: THOMAS HERNANDES EXP COSIGNER: URGENCY: STATUS: COMPLETED This PDMP query was submitted by Thomas Hernandes IN HOME TUTOR. The clinical justification for this PDMP query is to review controlled substances prescribed outside of the VA, and any additional information that may become available, as an important component of standard clinical care, and in accordance with [facility] policy. Patient information was shared with the PDMP [place]. No prescription(s) for controlled substances outside the VA were found in the last 90 days. /LUPE Cortes APRN STAFF CLINICAL NURSE SPECIALIST Signed: 10/23/2023 11:29 THOMAS HERNANDES [place] Oct 23, 2023 11:01 AM CLINICAL NURSE DARI HINOJOSA NOTE: LOCAL TITLE: CLINICAL NURSE SPECIALIST/MENTAL HEALTH STANDARD TITLE: CLINICAL NURSE SPECIALIST NOTE DATE OF NOTE: OCT 23, 2023@11:01 ENTRY DATE: OCT 23, 2023@11:01:28 AUTHOR: THOMAS HERNANDES EXP COSIGNER: URGENCY: STATUS: COMPLETED CLINICAL NURSE SPECIALIST/MENTAL HEALTH Has ADDENDA [facility] Medication management and brief psychotherapy seen 30 minutes PROBLEMS AND SYMPTOMS TREATED THIS VISIT Record reviewed Mood - No acute concerns , Mood ok , still missing his son. Feels estranged from his son especially. 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 Sleep - has sleep apnea. He is not using the CPAP consistently. Recommended he contact Respiratory for maintenance. He takes Melatonin 3mg at bedtime as needed with partial benefit. Appetite - good Ongoing discussion diet and exercise reviewed. Elevated A1c. MOVE recommended - will consider. denies suicidal homicidal ideation plan or intent. He denies hallucinations. No delusions. Has activities and interests [place] has community care therapist. denies any acute concerns Recurrent Depression Recommended SSRI medication to reduce reliance on Lorazepam . ? [place] declines Stopped CC . Recommended he continue. He has unresolved issues , estrangement from son. CC submitted. Anxiety Lorazepam 0.5mg as needed anxiety , panic # 10 tablets with refills. BENZODIAZEPINE EDUCATION Indications for use, dosage guidelines, risks, benefits, precautions reviewed each visit. Opiate and benzodiazepine safety review each visit. is currently not prescribed any opiates for pain. Does not drink alcohol. Alerted [place] to potential for impaired balance coordination. Reviewed adverse effects on memory concentration. tolerating well. No duplicate prescriptions in mass PAT. Reviewed the importance of medication adherence. The was advised to take medication daily as prescribed do not miss doses or abruptly discontinue. [place] was advised to always use caution when rising from a sitting position to prevent falls ,injury. has provider contact information . will call if he has any problems or concerns. MEDICATIONS Active Outpatient Medications (including Supplies): CARBOXYMETHYLCELLULOSE NA 0.5% OPH SOLN INSTILL 1 DROP ACTIVE INTO EACH EYE THREE TIMES A DAY CHLORTHALIDONE 25MG TAB TAKE ONE TABLET BY MOUTH ONCE ACTIVE DAILY TO REMOVE FLUID/CONTROL BLOOD PRESSURE CLONIDINE HCL 0.1MG TAB TAKE ONE TABLET BY MOUTH EVERY 12 ACTIVE (S) HOURS TO CONTROL BLOOD PRESSURE DEXTROSE 24GM/31GM SQUEEZE TUBE 1 TUBE BY MOUTH NEEDED ACTIVE FOR LOW BLOOD SUGAR FINASTERIDE 5MG TAB TAKE ONE TABLET BY MOUTH ONCE DAILY ACTIVE (S) FOR PROSTATE GLUCOSE SENSOR DEXCOM G7 USE 1 SENSOR DIRECTED EVERY 10 HOLD DAYS GLUCOSE SENSOR FREESTYLE IVETH 3 USE 1 SENSOR DIRECTED ACTIVE EVERY [...] ONE TABLET BY MOUTH ONCE DAILY ACTIVE (S) Non-VA FLUTICASONE NASAL SOLN,NASAL INTO EACH NOSTRIL ACTIVE MEDICAL HISTORY Active problems - Computerized Problem List is the source for the followin. Bradycardia 2. Benign Prostatic Hypertrophy with Outflow Obstruction ([facility] [id number]) 3. Erectile Dysfunction ([facility] [id number]) 4. Depression ([facility] [id number]) 5. Actinic keratosis 6. Basal cell carcinoma of skin 7. Vitamin D Deficiency ([facility] [id number]) 8. Contact dermatitis 9. Space-occupying lesion of brain 10. Second degree atrioventricular block 11. Cancer screening follow up 12. Hyperglycemia due to type 2 diabetes mellitus 13. PVD-peripheral vascular disease 14. Hyperlipidemia 15. Elevated PSA 16. Epistaxis * 17. Sleep apnea (SNOMED CT 01473079) 18. Superficial basal cell carcinoma 19. Gastroesophageal reflux disease (SNOMED CT 300305215) 20. Anxiety 21. Diabetes mellitus (SNOMED CT 90132769) 22. Essential hypertension (SNOMED CT 81136705) 23. Body mass index 25-29 - overweight 24. Recurrent major depression in partial remission LAB 08/2023 PLAN - Continue lorazepam 0.5mg . Take one tablet daily as needed # 10 tablets . CC Individual therapy submitted. RTC - [place] did not report suicidal or homicidal ideation today but was given the number to the [facility] Crisis Line. The [place] also understands to call 911 . Medication Reconciliation: Outpatient: Has the patient been taking medications [...] whether with a VA or non-VA provider. /essence Hernandes APRN, STAFF CLINICAL NURSE SPECIALIST Signed: 10/23/2023 11:44 10/23/2023 ADDENDUM STATUS: COMPLETED RTC Office with new provider 5 months. /LUPE Cortes APRN STAFF CLINICAL NURSE SPECIALIST Signed: 10/23/2023 16:43 Receipt Acknowledged By: * AWAITING SIGNATURE * MATTHEW CORDOBA,THOMAS ANDERSON
--- OUTSIDE RECORDS SUMMARY | 2024-08-21 23:29 | XMS_ITS ---
Author Name [facility] [place] [facility] [place] Address [address] [place] [address] Care Team Providers Care Healthcare Educator Name Role Phone MARIIA BROUSSARD Primary [...] Patient's Relationship to Policy [employer] EXPRESS SCRIPTS ([id number]) PRESCRIPT ION [facility] Mar 11, 2018 [id number] [phone] MADAI DELUNA OTHER RELATIONSHIP [facility] PREFERRED PROVIDER ORGANIZAT ION (PPO) Jun 11, 2011 [id number] MADAI DELUNA PATIENT HUMANA [facility] (WNR) MEDICARE ADVANTAGE [facility] (WNR) Sep 11, 2022 [id number] [phone] [place] PATIENT MEDICARE (WNR) MEDICARE (M) PART A January 10, 2012 PART A [id number] [place] PATIENT MEDICARE (WNR) MEDICARE (M) PART B January 10, 2012 PART B [id number] GILL DELUNA PATIENT MEDICARE (WNR) MEDICARE (M) PART A January 10, 2012 PART A [id number] [phone] GILL DELUNA PATIENT UNICARE PREFERRED PROVIDER ORGANIZAT ION (PPO) CRISTHIAN [place] STATE [place]* * Mar 11, 2015 [id number] MADAI DELUNA SPOUSE [facility] (WNR) MEDICARE ADVANTAGE [facility] (WNR) Mar 11, 2021 [id number] GILL DELUNA PATIENT [employer]LLCARE [facility] (WNR) MEDICARE ADVANTAGE [facility] (WNR) Sep 11, 2021 [id number] [phone] GILL DELU[place] PATIENT Selected Encounter This section includes the information on record at [place] for the Encounter. Date/Time Encounter Type Encounter Description Reason Provider Source Oct 24, 2023 02:50 PM Outpatient Encounter HT PROGRAM PATIENTS XI,MONTSERRAT IHBelle Encounter Template Text not used by [place] [...] 27, 2023 08:00 AM AMBULATORY - MEDICINE [place] [facility] Oct 27, 2023 11:00 AM AM[facility]ULATORY [facility] Oct 30, 2023 06:00 PM AMBULATORY - MEDICINE [place] [facility] Nov 07, 2023 10:00 AM AMBULATORY - MEDICINE [place] [facility] [place] [place] [facility] Nov 10, 2023 01:15 PM AMBULATORY - MEDICINE [place] [facility] [place] [place] [facility] Nov 13, 2023 12:00 PM AMBULATORY - MEDICINE [place] [facility] [place] [place] [facility] Nov 20, 2023 11:00 AM AMBULATORY - MEDICINE [place] [facility] Nov 27, 2023 11:00 AM AMBULATORY - MEDICINE [place] [facility] Nov 28, 2023 11:00 AM AMBULATORY - MEDICINE [place] [facility] Dec 04, 2023 01:00 PM AMBULATORY - NONE [place] [facility] Dec 11, 2023 11:00 AM AMBULATORY - MEDICINE [place] [facility] Dec 12, 2023 09:00 AM AMBULATORY - MEDICINE [place] [facility] January 15, 2024 01:40 PM AMBULATORY - MEDICINE [place] [facility] January 22, 2024 08:30 AM AMBULATORY [facility]IC[facility] Mar 01, 2024 10:00 AM AMBULATORY - MEDICINE [facility] Lab Results: +/- 30 days of the [...] Range Comment Nov 02, 2023 12:00 AM [place]EL[place] OCCULT BLOOD FIT X1 SCREEN(IN-HOUSE) Sp ecimen Type: FECES No comment entered. Ordering Provider: MARIIA CABRAL Report Released Date/Time: Oct 27, 2023 12:56 PM Reporting Lab: [address] [address] Performing [facility]: [facility] [address] [address] OCCULT BLOOD (FIT)#1 OF 1 Negative NEG [...] 12, 2022 03:10 PM [facility]BACCO [facility] Encounter Notes: All associated encounter notes This section contains the clinical notes associated to the Encounter. Date/Time Encounter Note(s) Provider Source Oct 24, 2023 02:50 PM HOME TELEHEALTH SE CURE MESSAGING: LOCAL TITLE: HOME TELEHEALTH SECURE MESSAGING STANDARD TITLE: HOME TELEHEALTH SECURE MESSAGING DATE OF NOTE: OCT 24, 2023@14:50 ENTRY DATE: OCT 24, 2023@14:50:45 AUTHOR: MONTSERRAT LAYNE EXP COSIGNER: URGENCY: STATUS: COMPLETED ------Original Message ----- Sent: 10/24/2023 02:50 PM ET From: MONTSERRAT LAYNE To: [place] Subject: Education:[employer] [facility] Hello Mr. Deluna, Here is the website link to [place] [employer]: https://[place]/WHOLEHE ALTH/-resources/who xb-rpxqtq-dgtopn.asp Please let me know if you have any questions. Montserrat Coronado /simone/ LLOYD AlbertN, RN RPM-Home Telehealth Post Closing Specialist Signed: 10/24/2023 14:50 MONTSERRAT LAYNE [place] [facility]
--- OUTSIDE RECORDS SUMMARY | 2024-08-21 23:29 | XMS_ITS ---
Author Name [facility] [place] Organization [place] Address [address] [place] [address] Care Team Providers Care What Job Titles Mean Name Role Phone MARIIA BROUSSARD Primary Care [...] Patient's Relationship to Policy [employer] EXPRESS SCRIPTS ([id number]) PRESCRIPT ION [facility] Mar 11, 2018 [id number] MADAI DELUNA OTHER RELATIONSHIP [facility] PREFERRED PROVIDER ORGANIZAT ION (PPO) Jun 11, 2011 [id number] MADAI DELUNA PATIENT HUMANA [facility] (WNR) MEDICARE ADVANTAGE [facility] (WNR) Sep 11, 2022 [id number] [phone] [place] PATIENT MEDICARE (WNR) MEDICARE (M) PART A January 10, 2012 PART A [id number] [place] PATIENT MEDICARE (WNR) MEDICARE (M) PART B January 10, 2012 PART B [id number] [phone] GILL DELUNA PATIENT MEDICARE (WNR) MEDICARE (M) PART A January 10, 2012 PART A [id number] [phone] GILL DELUNA PATIENT UNICARE PREFERRED PROVIDER ORGANIZAT ION (PPO) [facility]* * Mar 11, 2015 [id number] MADAI DELUNA SPOUSE [facility] (WNR) MEDICARE ADVANTAGE [facility] (WNR) Mar 11, 2021 [id number] GILL DELUNA PATIENT [facility] (WNR) MEDICARE ADVANTAGE [facility] (WNR) Sep 11, 2021 [id number] GILL DELUNA PATIENT Selected Encounter This section includes the information on record at [place] for the Encounter. Date/Time Encounter Type Encounter Description Reason Pro vider Source Oct 08, 2023 02:38 PM Outpatient Encounter [facility] Encounter Template Text not used by [place] Plan of Treatment: Future Appointments (+ 6 months) and Future Tests (+/- 45 days) The Plan of Treatment section includes future care activities for the patient [facility] [place] [facility] This section includes future appointments and future [...] 23, 2023 11:00 AM AMBULATORY - PSYCHIATRY [place] [facility] [place] [facility] Oct 23, 2023 11:01 AM AMBULATORY - PSYCHIATRY [facility] [place] [facility] Oct 27, 2023 08:00 AM AMBULATORY - MEDICINE [place] [facility] [place] [facility] Oct 27, 2023 11:00 AM [facility] Oct 30, 2023 06:00 PM AMBULATORY - MEDICINE [place] [facility] [place] [facility] Nov 07, 2023 10:00 AM AMBULATORY - MEDICINE [place] [facility] [place] [facility] Nov 10, 2023 01:15 PM AMBULATORY - MEDICINE [facility] [place] [facility] Nov 13, 2023 12:00 PM AMBULATORY - MEDICINE [facility] [place] [facility] Nov 20, 2023 11:00 AM AMBULATORY - MEDICINE [facility] [place] [facility] Nov 27, 2023 11:00 AM AMBULATORY - MEDICINE [facility] [place] [facility] Nov 28, 2023 11:00 AM AMBULATORY - MEDICINE [facility] [place] [facility] Dec 04, 2023 01:00 PM AMBULATORY - NONE [facility] [place] [facility] Dec 11, 2023 11:00 AM AMBULATORY - MEDICINE [place] [facility] [place] [facility] Dec 12, 2023 09:00 AM AMBULATORY - MEDICINE [place] [facility] [place] [facility] January 15, 2024 01:40 PM AMBULATORY - MEDICINE [place] [facility] [place] [facility] January 22, 2024 08:30 AM AMBULATORY - MEDICINE [facility] Mar 01, 2024 10:00 AM [facility] Lab Results: +/- 30 days of the [...] Range Comment Nov 02, 2023 12:00 AM [place] OCCULT BLOOD FIT X1 SCREEN(IN-HOUSE) Sp ecimen Type: FECES No comment entered. Ordering Provider: MARIIA CABRAL Report Released Date/Time: Oct 27, 2023 12:56 PM Reporting Lab: [facility] [place] [facility] [address] [facility] [id number] Performing Lab: [facility] [address] OCCULT BLOOD (FIT)#1 OF 1 Negative NEG [...] VA-TOBACCO NEVER USED [facility] [place] [facility] Encounter Notes: All associated encounter notes This section contains the clinical notes associated to the Encounter. Date/Time Encounter Note(s) Provider Source Oct 08, 2023 02:52 PM ACCOUNTING OF DISC LOSURES NOTE: LOCAL TITLE: STATE PRESCRIPTION DRUG MONITORING PROGRAM STANDARD TITLE: ACCOUNTING OF DISCLOSURES NOTE DATE OF NOTE: OCT 08, 2023@14:52:21 ENTRY DATE: OCT 08, 2023@14:52:21 AUTHOR: THOMAS HERNANDES COSIGNER: URGENCY: STATUS: COMPLETED This PDMP query was submitted by Thomas Hernandes. The clinical justification for this PDMP query is to review controlled substances prescribed outside of the [facility], and any additional information that may become available, as an important component of standard clinical care, and in accordance with [facility] policy. Patient information was shared with the PDMP [employer] [place]. No prescription(s) for controlled substances outside the [facility] were found in the last 90 days. /essence Hernandes APRN, STAFF CLINICAL NURSE SPECIALIST Signed: 10/08/2023 14:52 THOMAS HERNANDES Oct 08, 2023 02:39 PM ACCOUNTING OF DISC LOSURES NOTE: LOCAL TITLE: STATE PRESCRIPTION DRUG MONITORING PROGRAM STANDARD TITLE: ACCOUNTING OF DISCLOSURES NOTE DATE OF NOTE: OCT 08, 2023@14:39:03 ENTRY DATE: OCT 08, 2023@14:39:03 AUTHOR: THOMAS HERNANDES COSIGNER: URGENCY: STATUS: COMPLETED This PDMP query was submitted by Thomas Hernandes. The clinical justification for this PDMP query is to review controlled substances prescribed outside of the [facility], and any additional information that may become available, as an important component of standard clinical care, and in accordance with [facility] policy. Patient information was shared with the PDMP [employer] [place]. No prescription(s) for controlled substances outside the [facility] were found in the last 90 days. /essence Hernandes APRN, STAFF CLINICAL NURSE SPECIALIST Signed: 10/08/2023 14:39 THOMAS HERNANDES
--- OUTSIDE RECORDS SUMMARY | 2024-08-21 23:29 | XMS_ITS | Encounter Summary ---
Author Name [facility] [place] Organization [place] Address [address] [place] [address] Care Team Providers Care Roaster Helper Name Role Phone MARIIA BROUSSARD Primary [...] Patient's Relationship to Policy [employer] ([id number]) PRESCRIPT ION [facility] Mar 11, 2018 [id number] [phone] MADAI DELUNA OTHER RELATIONSHIP [facility] PREFERRED PROVIDER ORGANIZAT ION (PPO) Jun 11, 2011 [id number] MADAI DELUNA PATIENT HUMANA [facility] (WNR) MEDICARE ADVANTAGE [facility] (WNR) Sep 11, 2022 [id number] [phone] [place] PATIENT MEDICARE (WNR) MEDICARE (M) PART A January 10, 2012 PART A [id number] [phone] [place] PATIENT MEDICARE (WNR) MEDICARE (M) PART B January 10, 2012 PART B [id number] [place] PATIENT MEDICARE (WNR) MEDICARE (M) PART A January 10, 2012 PART A [id number] [phone] GILL DELUNA PATIENT UNICARE PREFERRED PROVIDER ORGANIZSARA [place] (PPO) [facility]* * Mar 11, 2015 [id number] MADAI DELUNA SPOUSE [facility] (WNR) MEDICARE ADVANTAGE [facility] (WNR) Mar 11, 2021 [id number] GILL DELUNA PATIENT [facility] (WNR) MEDICARE ADVANTAGE [facility] (WNR) Sep 11, 2021 [id number] [place] PATIENT Selected Encounter This section includes the information on record at [place] for the Encounter. Date/Time Encounter Type Encounter Description Reason Provider Source Oct 23, 2023 11:00 AM [facility]HEALTH FACILITY [facility] [place] ICD-10-CM F32.A Depression, unspecified SENTHIL BONILLA [place] Encounter Template Text not used by [place] Assessments - Encounter Diagnoses This section includes the primary and secondary diagnoses documented for the Encounter. Date/Time Primary/Secondary Diagnosis Diagnosis Name Provider Source Oct 23, 2023 04:15 PM PRIMARY Depression, unspecified TAZ BONILLA Oct 23, 2023 04:15 PM SECONDARY Anxiety disorder, unspecified TAZ BONILLA Oct 23, 2023 04:15 PM SECONDARY Obstructive sleep apnea (adult) (pediatric) TAZ BONILLA [facility] Plan of Treatment: Future Appointments (+ 6 [...] 27, 2023 08:00 AM AMBULATORY - [facility] Oct 27, 2023 11:00 AM AMBULATORY - MEDICINE [facility] Oct 30, 2023 06:00 PM AMBULATORY - MEDICINE [place] [facility] [place] [facility] Nov 07, 2023 10:00 AM AMBULATORY - MEDICINE [place] [facility] [place] [place] [facility] Nov 10, 2023 01:15 PM AMBULATORY - MEDICINE [place] [facility] [place] [facility] Nov 13, 2023 12:00 PM AMBULATORY - MEDICINE [facility] [place] [facility] Nov 20, 2023 11:00 AM AMBULATORY - MEDICINE [place] [facility] [place] [facility] Nov 27, 2023 11:00 AM AMBULATORY - MEDICINE [facility] [place] [facility] Nov 28, 2023 11:00 AM AMBULATORY - MEDICINE [facility] [place] [facility] Dec 04, 2023 01:00 PM AMBULATORY - NONE [facility] [place] [facility] Dec 11, 2023 11:00 AM AMBULATORY - MEDICINE [facility] [place] [facility] Dec 12, 2023 09:00 AM AMBULATORY - MEDICINE [facility] [place] [facility] January 15, 2024 01:40 PM AMBULATORY - MEDICINE [facility] [place] [facility] January 22, 2024 08:30 AM AMBULATORY - MEDICINE [facility] Mar 01, 2024 10:00 AM AMBULATORY - MEDICINE IN [place] [facility] [place] [place] [facility] Lab Results: +/- 30 days [...] Range Comment Nov 02, 2023 12:00 AM [facility] OCCULT BLOOD FIT X1 SCREEN(IN-HOUSE) Sp ecimen Type: FECES No comment entered. Ordering Provider: MARIIA CABRAL Report Released Date/Time: Oct 27, 2023 12:56 PM Reporting Lab: [facility] WSN [facility] [address] [facility] [address] Performing Lab: [facility] [address] [address] OCCULT BLOOD (FIT)#1 OF 1 Negative NEG Social History: Smoking Status (Most current) and Tobacco Use (All prior to encounter date) This section includes the most current, and the historical, smoking and tobacco- related health factors from the [place] facility where the Encounter took place. Current Smoking Status This section includes the most current smoking, or tobacco-related health factor, from the [facility] where the Encounter took place. Date/Time Current Smoking Status Comment Facil [facility] Jul 06, 2021 09:30 AM VA-TOBACCO NEVER USED [facility] Tobacco Use History This section includes a history of the smoking, or tobacco-related health factors, that were collected on or before the date of the Encounter. The data comes from the [place] facility where the Encounter took place. Date/Time Smoking Status/Tobacco Use Comment F acility Apr 30, 2020 01:00 PM VA-TOBACCO FORMER USER [facility] Apr 30, 2020 01:00 PM VA-TOBACCO QUIT 15 YRS OR MORE [facility] January 09, 2019 02:16 PM VA-TOBACCO FORMER USER [facility] January 09, 2019 02:16 PM VA-TOBACCO QUIT 15 YRS OR MORE [facility] Feb 13, 2018 11:05 AM QUIT TOBACCO USE > 7 YEARS AGO [facility] Feb 28, 2017 01:42 PM LIFETIME NON-TOBACCO USER quit 1975 [facility] Nov 17, 2015 09:53 AM QUIT TOBACCO USE > 7 YEARS AGO [facility] February 08, 2002 03:04 PM QUIT TOBACCO USE > 7 YEARS AGO Patient states he smoked from age [age] and quit. [facility] Aug 10, 2001 03:42 PM NON-TOBACCO USER Stopped tobacco 35 years ago [facility] Encounter Notes: All associated encounter notes This section contains the clinical notes associated to the Encounter. Date/Time Encounter Note(s) Provider Source Oct 23, 2023 04:08 PM TELEHEALTH NOTE: LOCAL TITLE: TELEHEALTH NOTE STANDARD TITLE: TELEHEALTH NOTE DATE OF NOTE: OCT 23, 2023@16:08 ENTRY DATE: OCT 23, 2023@16:08:25 AUTHOR: TADEO BONILLA COSIGNER: URGENCY: STATUS: COMPLETED GILL DELUNA checked-in with this atm technician at: [facility]/CVT/[facility]/IND PHOTO RETOUCHER/PAT. identified with 2 identifiers: [X] Full Name [ ] Date of [X] Full SSN [ ] VA ID Card Patient consented to participate in the scheduled Clinical Video Telehealth (CVT) appointment: YES. Appointment Date/Time: Oct@11:00. Mrs. THOMAS GunterWillian HERNANDES APRN, CLINICAL NURSE SPECIALIST Conducted this appointment/session from [facility]) via Clinical Video Telehealth. DX per Telehealth Provider: F32.A Depression, unspecified(P). G47.33 Obstructive Sleep Apnea (Adult)(Pediatric)(S). F41.9 Anxiety Disorder, unspecified(S). /simone/ TADEO BONILLA TELEHEALTH CLINICAL TECHNIAN (TCT) Signed: 10/23/2023 16:18 TADEO BONILLA [facility]
--- OUTSIDE RECORDS SUMMARY | 2024-08-21 23:29 | XMS_ITS | Encounter Summary ---
Author Name [facility] Organization [facility] Address [address] [place] [address] Care Team Providers Care Cnc Lathe Programmer Name Role Phone MARIIA BROUSSARD Primary Care [...] Patient's Relationship to Policy [employer] ([id number]) PRESCRIPT ION [facility] Mar 11, 2018 [id number] MADAI DELUNA OTHER RELATIONSHIP [facility] PREFERRED PROVIDER ORGANIZAT ION (PPO) Jun 11, 2011 [id number] MADAI DELUNA PATIENT [employer] MCR (WNR) MEDICARE ADVANTAGE MCR (WNR) Sep 11, 2022 [id number] [phone] [place] PATIENT MEDICARE (WNR) MEDICARE (M) PART A January 10, 2012 PART A [id number] [phone] MI[place]IE G[place] PATIENT MEDICARE (WNR) MEDICARE (M) PART B January 10, 2012 PART B [id number] [place] PATIENT MEDICARE (WNR) MEDICARE (M) PART A January 10, 2012 PART A [id number] [phone] GILL DELUNA PATIENT UNICARE PREFERRED PROVIDER ORGANIZAT ION (PPO) [facility] [facility]* * Mar 11, 2015 [id number] MADAI DELUNA [facility] (WNR) MEDICARE ADVANTAGE [facility] (R) Mar 11, 2021 [id number] [phone] GILL DELUNA PATIENT [employer] [facility] (WNR) MEDICARE ADVANTAGE [facility] (WNR) Sep 11, 2021 [id number] GILL DELUNA PATIENT Selected Encounter This section includes the information on record at CT for the Encounter. Date/Time Encounter Type Encounter Description Reason Provider Source Oct 27, 2023 11:00 AM OFFICE O/P EST MOD 30 MIN PRIMARY CARE/MEDICINE ICD-10-CM I11.9 Hypertensive heart disease without heart failure MARIIA TUCKER [place] Encounter Template Text not used by CT Assessments - Encounter Diagnoses This section includes the primary and secondary diagnoses documented for the Encounter. Date/Time Primary/Secondary Diagnosis Diagnosis Name Provider Source Oct 30, 2023 05:05 PM PRIMARY Hypertensive heart disease without heart failure MARIIA TUCKER [place] Oct 30, 2023 05:05 PM SECONDARY Actinic keratosis MARIIA TUCKER [place] Oct 30, 2023 05:05 PM SECONDARY Atrioventricular block, second degree MARIIA TUCKER [place] Oct 30, 2023 05:05 PM SECONDARY Basal cell carcinoma of skin, unspecified MARIIA TUCKER [place] Oct 30, 2023 05:05 PM SECONDARY Benign prostatic hyperplasia with lower urinary tract symp MARIIA TUCKER [place] Oct 30, 2023 05:05 PM SECONDARY Bradycardia, unspecified MARIIA TUCKER [place] Oct 30, 2023 05:05 PM SECONDARY Depression, unspecified MARIIA TUCKER [place] Oct 30, 2023 05:05 PM SECONDARY Elevated prostate specific antigen [PSA] MARIIA TUCKER [place] Oct 30, 2023 05:05 PM SECONDARY Hyperlipidemia, unspecified MARIIA TUCKER [place] Oct 30, 2023 05:05 PM SECONDARY Male erectile dysfunction, unspecified MARIIA TUCKER [place] Oct 30, 2023 05:05 PM SECONDARY Obstructive sleep apnea (adult) (pediatric) MARIIA TUCKER [place] Oct 30, 2023 05:05 PM SECONDARY Other obstructive and reflux uropathy MARIIA TUCKER [place] Oct 30, 2023 05:05 PM SECONDARY Type 2 diabetes mellitus without complications KARISSA VALDEZJENSENMARIIA [place] Plan of Treatment: Future Appointments (+ 6 months) and Future Tests (+/- 45 days) The Plan of Treatment section includes [facility] care [facility] This section includes future appointments and future orders which are active, pending or scheduled. Future Appointments This section includes appointments that were scheduled to occur 6 months from the date of the Encounter, up to a maximum of 20 appointments. The data comes from all CT treatment facilities. Appointment Date/Time Appointment Type Appointme nt Facility Name Oct 30, 2023 06:00 PM AMBULATORY - MEDICINE [facility] [place] [facility] Nov 07, 2023 10:00 AM AMBULATORY - MEDICINE [facility] [place] [facility] Nov 10, 2023 01:15 PM AMBULATORY - MEDICINE [facility] [place] [facility] Nov 13, 2023 12:00 PM AMBULATORY - MEDICINE [facility] C [facility] [place] [facility] Nov 20, 2023 11:00 AM AMBULATORY - MEDICINE [facility] C [facility] [place] [facility] Nov 27, 2023 11:00 AM AMBULATORY - MEDICINE CT C [facility] [place] [facility] Nov 28, 2023 11:00 AM AMBULATORY - MEDICINE [facility] C [facility] [place] [facility] Dec 04, 2023 01:00 PM AMBULATORY - NONE CT [facility] [place] [facility] Dec 11, 2023 11:00 AM AMBULATORY - MEDICINE [facility] C [facility] [place] [facility] Dec 12, 2023 09:00 AM AMBULATORY - MEDICINE CT C [facility] [place] [facility] January 15, 2024 01:40 PM AMBULATORY - MEDICINE [facility] C [facility] [place] [facility] January 22, 2024 08:30 AM AMBULATORY - MEDICINE [facility] Mar 01, 2024 10:00 AM AMBULATORY - MEDICINE [facility] Lab Results: +/- 30 days of the encounter This section includes the Chemistry and Hematology Lab Results on record with CT for the patient. Radiology Reports and Pathology Reports are provided separately, in subsequent sections. Lab Results This section contains the Chemistry/Hematology Results that were resulted 30 days before or 30 daysafter the date of the Encounter. Date/Time Source Result Type Result - Unit Interpretation Reference Range Comment Nov 02, 2023 12:00 AM [facility] OCCULT BLOOD FIT X1 SCREEN(IN-HOUSE) Sp ecimen Type: FECES No comment entered. Ordering Provider: MARIIA CABRAL Report Released Date/Time: Oct 27, 2023 12:56 PM Reporting Lab: [facility] [address] [id number] Performing Lab: [address] [id number] OCCULT BLOOD (FIT)#1 OF 1 Negative NEG Vital Signs: All taken on the encounter date This section contains inpatient and outpatient Vital Signs collected on the date of the Encounter. Date/Time Temperature Pulse Blood Pressure Respiratory Rate SP02 Pain Height Weight Body Mass Index Source Oct 27, 2023 11:36 AM [address] [place] Oct 27, 2023 11:21 AM 97.6 132/69 98 176.6 29 [facility] [place] Social History: Smoking Status (Most current) and Tobacco Use (All prior to encounter date) This section includes the most current, and the historical, smoking and tobacco- related health factors from the CT facility where the Encounter took place. Current Smoking Status This section includes the most current smoking, or tobacco-related health factor, from the CT facility where the Encounter took place. Date/Time Current Smoking Status Comment Nadine jose Jul 06, 2021 09:30 AM VA-TOBACCO NEVER USED [facility] Tobacco Use History This section includes a history of the smoking, or tobacco-related health factors, that were collected on or before the date of the Encounter. The data comes from the CT facility where the Encounter took place. Date/Time Smoking Status/Tobacco Use Comment F acility Apr 30, 2020 01:00 PM VA-TOBACCO FORMER USER [facility] Apr 30, 2020 01:00 PM VA-TOBACCO QUIT 15 YRS OR MORE [facility] January 09, 2019 02:16 PM VA-TOBACCO FORMER USER [facility] January 09, 2019 02:16 PM VA-TOBACCO QUIT 15 YRS OR MORE [facility] [facility] Feb 13, 2018 11:05 AM QUIT TOBACCO USE > 7 YEARS AGO [place] Feb 28, 2017 01:42 PM LIFETIME NON-TOBACCO USER quit 1976 [facility] Nov 17, 2015 09:53 AM QUIT TOBACCO USE > 7 YEARS AGO [place] February 08, 2002 03:04 PM QUIT TOBACCO USE > 7 YEARS AGO Patient states he smoked from age [age] and quit. [facility] [facility] Aug 10, 2001 03:42 PM NON-TOBACCO USER Stopped tobacco 35 years ago [facility] Encounter Notes: All associated encounter notes This section contains the clinical notes associated to the Encounter. Date/Time Encounter Note(s) Provider Source Oct 27, 2023 11:00 AM PHYSICIAN NOTE: LOCAL TITLE: NOTE STANDARD TITLE: PHYSICIAN NOTE DATE OF NOTE: OCT 27, 2023@11:00 ENTRY DATE: OCT 26, 2023@23:00:11 AUTHOR: Katerin BROUSSARD EXP COSIGNER: URGENCY: STATUS: COMPLETED NOTE Has ADDENDA Pt is 78 y/o M with PMH of obesity, HTN, HL, IDDM2, ARNOLD on BiPAP, BPH/ED, anxiety/MDD last visit 06/[address] Bull - [facility] --> last 10/[address] Other providers: -- DM CPP CT -- podiatry CT -- [facility] urology Dr Mccurdy -->last 2018 -- [facility] --- h/o skin cancer- last 05/2023 -- sleep clinic [facility] 2021 [facility] Patient reports feeling well Still working full-time He likes his job but at the same time finds it very stressful at times He walks 20 foot camper, can accommodate 7 people Plan to spend some time with grandchildren this summer in [place] Recently seen in the emergency room for hypertension In ED EKG normal sinus rhythm with second-degree AV block at 91 bpm No ischemic changes Chest x-ray unremarkable High-sensitivity troponin 28x2 TSH 5 CBC wnl BUN/cr 27/1 Blood pressure normalized, patient discharged home without changes in medication Since then asymptomatic #ARNOLD- compliant with BiPAP #h/o bradyarrhythmia Relevant history: #bracycardia and new 2nd degreeAV block,Mobitz type 1 -10/2021 admitted for overnight observation at [facility] Patient denies any symptoms, no chest pain, palpitations, shortness of breath, dizziness, presyncope/syncope 10/2022 zio patch noted CHB 10s in the afternooon, bradyarrhythmia asymptomatic evaluated by cardiology bradyarrhythmia resolved since carvedilol stopped Vital Sign for: 09/28/2023 - 10/27/2023 Summary Weight Sys BP Barnett BP HR Pain High 178.4 184 96 107 Low 171.2 101 56 43 Average 174.8 146 78 72 #HTN/HL compliant with medications valsartan 320mg by mouth daily (taking at night) chlorthalidone 25mg by mouth daily (taking in the morning) clonidine 0.1mg by mouth every 12 hours denies CP/SOB/UA/palpitations/dizzi ness /claudication denies h/o CT/CVA #DM2 seen by CPP today switched to dexcom today compliant with meds Self discontinued empagliflozin when he read side effect profile fasting if dietary indiscretions 170-180, if compliant with diet <130 denies any hypoglycemia episodes denies p/p/p PAST MEDICAL HISTORY: -- Obesity -- HTN -- HL -- DM2 -- COVID 2021 mild -- 2nd degreeAV block,Mobitz type 1 Dx 2021 - zio patch/2022 one episode CHB 10s -- ARNOLD BiPaP as of 06/2018 efficiency affected by recurrent epistaxis sleep study 2021 severe ARNOLD with severe hypoxemia - compliant with BiPAP -- 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 no sx 06/2018 (per chart- pt denies h/o PVD) -- Elevated PSA -- Superficial basal cell carcinoma 2001: Excision of lesion on rt area near nose -- GERD -- Anxiety -- Recurrent major depression - stopped fluoxetine 2020 PAST SURGICAL HISTORY: -- BCC- Excision of lesion on R area near nose -- uvulectomy ALLERGIES: Nifedipine, lisinopril , metformine MEDICATIONS: -VALSARTAN 320MG -chlorthalidone 25MG -clonidine 0.1mg BID -aspart ICR 1:8 BEFORE BREAKFAST AND LUNCH AND 1:10 BEFORE DINNER) -GLARGINE 18 UNITS -SEMAGLUTIDE 2MG A WEEK EMPAGLIFLOZIN 12.5MG self dc/d -SILDENAFIL 100MG -Finasteride 5mg ipratropium nasal -FLUTICASONE PROP 50MCG 120D NASAL -AMMONIUM LACTATE 12% CHOLECALCIF 25MCG (D3-1,000UNIT) -LORAZEPAM 0.5MG DAILY FOR ANXIETY/NERVES prn FAMILY HISTORY: --DM:mother --Cancer: MGM ovarian cancer --CT:no --CVA:no --Mental Health/addiction:father pulmonary fibrosis SOCIAL HISTORY: --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 --Cohabitation: , lives by himself, ex lives close by --Children: 2 sons --Diet: high carbs diet --Exercise: walking 3x/week with his dog- 1.2 miles Wall push ups (10 minutes/day, 2-3x/day) 13 stairs up/down 6x/day Mows lawn & works in garden --Caffeine: 2x/day --EtOH: none for 15 years --Tob: quit 1979, h/o 4 xPPDY --MJ:denies --Illicits:denies --Sexual activity: last year 2 partners, condom + --[facility]: [facility] --Dental: UTD --Hospitalizations: ROS: Constitutional: no fever/no chills, no ns Eyes: no decreased vision/blurry vision Ears/Nose/Throat: no hearing change Respiratory: no cough/wheezing/SOB Cardiovascular: no CP /palpitations/le edema Gastrointestinal: no abdominal pain/bloody/black stools, n/v/c/d :no dysuria/hematuria/trouble voiding MSK: no joint pain/myalgia Neuro: no dizziness/H/A Skin: no pruritus/rash PHYSICAL EXAM: Vital Signs: Blood Pressure: 132/69 (10/27/2023 11:21) 148/85 (12/12/2022 15:08)--> repeat 135/85 149/80 (10/15/2021 15:00) 124/64 (07/20/2021 10:30) Pulse: 58 (10/27/2023 11:36) Respiration: 18 Temperature: 97.6 F [36.4 C] (10/27/2023 11:21) WEIGHT 10/27/2023 11:21 176.6 lb [80.10 kg] 12/12/2022 15:08 178.8 lb [81.10 kg] 10/15/2021 14:52 174 lb [79.1 kg] 07/20/2021 10:30 175.2 lb [79.6 kg] 10/31/2019 15:10 191.2(86.73)[31*] 04/12/2019 13:34 188.5(85.50)[30*] GA: AO x 3. NAD Anicteric, ISMAEL neck supple, no LAD RRR, S1S2 CTA b/l abdomen: BS+, NT/ND LE : no edema LABORATORY:08/2023 GLUCOSE: 138 H HGB A1C (WR): 7.9 H UREA NITROGEN: 26 H CREATININE-EGFR: 1.00 eGFR CKD-EPI 2020: 78 SODIUM: 138 POTASSIUM: 4.3 CHLORIDE: 100 CO2: 29 PROSTATIC SP ANTIGEN: 3.97 MAGNESIUM: 1.8 MICROALB/CR RATIO: 43.0 H MICROALBUMIN URINE: 2.0 CREATININE URINE: 46.53 VITAMIN D TOTAL: 23 IMAGING: ECHO:03/2019 mild LVH, EF 60%, mild MR, TR, aortic sclerosis, mild LAD ECHO:01/2022 mild LVH, EF 60%, no HD significant valve disease-stable compared to 2019 #Zio patch (11/2022)after started ARNOLD rx - BiPAP - Predominant rhythm is sinus at an average rate in the 80s. High grade heart block is once again noted, the most marked being a 10 second episode late afternoon on November 02 at a ventricular escape rate in the 30s. Diary entries of anxiousness, dyspnea, fluttering, skipped beats, and racing correlate poorly with rate and rhythm. (No dizziness or syncope occurred.) no major change relative to a Zio monitor dated 11/09/2021 #MRI brain w/o contrast 09/2022 -Large right middle cranial fossa arachnoid cyst extending along the right frontotemporal convexity and resulting in mass-effect upon adjacent structures. No midline shift. No acute infarct, intracranial hemorrhage, or abnormal intracranial enhancement. ASSESSMENT/PLAN: Pt is 77 y/o M with PMH of obesity, HTN, HL, IDDM2, ARNOLD on BiPAP, BPH/ED, anxiety/MDD, #HTN: Reasonably well controlled, goal <130/80 #HL LDL 48 (01/2023) patient not on statin -c/w VALSARTAN 320MG PM -c/w chlorthalidone 25mg AM -c/w clonidine 0.1mg BID heart healthy mediterranean diet recommended, low salt diet -Referral to biofeedback HTN -c/w HT #ARNOLD -since last visit compliant with BiPAP #Bradycardia, mainly asymptomatic, TSH 09/2023 5.05, FT4 0.99 denies fatigue, dyspnea, presyncope, syncope bradyarrhitmia mostly resolved since stopped BB 05/2023 #heart block: Second degree AV block, Mobitz 1 Zio patch (10/2021) 10 seconds episode of CHB in the middle of the night Zio patch (11/2022)after started ARNOLD rx - BiPAP - see above ECHO 2021-mild LVH, normal LVEF, no significant valve disease -evaluated by [facility] cardiology -fall 2022-patient had repeated Zio patch-no results available for review - will obtain most recent cardiology note #Overweight -diet and exercise reviewed , patient with his goal weight 176 lb #DM2 A1c 7.9, Goal <7-8, ACR wnl (04/2023) goal fasting 90-130, 2h pp <180 f/w DM pharamcy On basal bolus insulin SEMAGLUTIDE 2MG A WEEK Empagliflozin self dc/d feet: UTD 08/2023 eye: w/o retinopathy-last 08/2021 #ED SILDENAFIL 100MG #BPH -on finasteride - denies LUTS, nocturia 1+, strong stream UTI sx resolved with stopping jardiance -- #h/o elevated PSA - brother recently dx with prostate cancer at 71 PSA 3.97 (08/2023)---> patient on finasteride 5mg, goal PSA <2 -Scheduled with urology for 11/2023 #depression: doing fine off of fluoxetine lorazepam prn -usually takes 2x/month #h/o BCC #AK -sun protection reviewed with pt f/u CT dermatology Healthcare maintenance: --Lipids: LDL 48 (01/2023) --Diabetes: A1c 7.9 (08/2023) --Colon CA (50-75): 12/2022 FIT Negative pt declined colonoscopy- risks of late CRC dx discussed --Lung CA: n/a --PSA PSA 3.97 (08/2023) --AAA (smoker/65): 2013 No AAA --Influenza (yrly): 2022 --COVID-19 (MODERNA) x4 --PCV13 2015 --PCV23: 2012 --RZV (>50yrs, x2): 2019 x2 --TDAP: 2010 --->per pt received 12/2020 in non [facility] (dog bite) --Hep C screen: 2016 neg --HIV screen: --DEXA: --Advanced Directives: Address at next visit: HTN/DM, BPH/PSA on finasteride Return to clinic to see me in 6m, sooner PRN. Virtual ( ),F2F ( x ) ( x)fasting labs order prior to f/u blood work -- Could you please obtain most recent cardiology note-and place new referral to community care cardiology for continuity of care Medication Reconciliation: Outpatient: Has the patient been taking medications as documented in the EMLR? YES: The patient has been taking medications as documented in the EMLR. Essential Medication List for Review used to complete this medication reconciliation. INCLUDED IN THIS LIST: Alphabetical list of active outpatient prescriptions dispensed from this CT (local) and dispensed from another CT or DoD facility (remote) as well as [...] whether with a VA or non-VA provider. Medication Reconciliation: Outpatient: Has the patient been [...] whether with a VA or non-VA provider. /simone/ MARIIA BROUSSARD MD PHYSICIAN Signed: 10/30/2023 17:05 Receipt Acknowledged By: 11/01/2023 13:09 /simone/ LORETA DAMICO 10/31/2023 13:02 /es/ KYLER DURON RN REGISTERED NURSE 11/01/2023 ADDENDUM STATUS: COMPLETED COIL BUILDER REQUESTED RECORDS. /simone/ LORETA DAMICO Signed: 11/01/2023 13:09 03/24/2024 ADDENDUM STATUS: COMPLETED 10/2023 FIT negative /es/ MARIIA BROUSSARD MD PHYSICIAN Signed: 03/24/2024 01:57 05/10/2024 ADDENDUM STATUS: COMPLETED Received operative note dated 03/25/[address] [facility] for laser enucleation of prostate, sent to [facility]. Pathology: benign. /es/ Michelle Graves RN Registered Nurse Signed: 05/10/2024 11:34 BARBARA BROUSSARD [facility]
--- OUTSIDE RECORDS SUMMARY | 2024-08-21 23:29 | XMS_ITS | Encounter Summary ---
Author Name [place] Address [address] [place] [address] Care Team Providers Care Education Technician Name Role Phone MARIIA BROUSSARD Primary [...] Patient's Relationship to Policy [employer] EXPRESS SCRIPTS ([id number]) PRESCRIPT ION [facility] Mar 11, 2018 [id number] MADAI DELUNA OTHER RELATIONSHIP [facility] PREFERRED PROVIDER ORGANIZAT ION (PPO) Jun 11, 2011 [id number] MADAI DELUNA PATIENT HUMANA [facility] (WNR) MEDICARE ADVANTAGE [facility] (WNR) Sep 11, 2022 [id number] [phone] GILL DELUNA PATIENT MEDICARE (WNR) MEDICARE (M) PART A January 10, 2012 PART A [id number] [phone] GILL DELUNA PATIENT MEDICARE (WNR) MEDICARE (M) PART B January 10, 2012 PART B [id number] [phone] GILL DELUNA PATIENT MEDICARE (WNR) MEDICARE (M) PART A January 10, 2012 PART A [id number] [phone] GILL DELUNA PATIENT UNICARE PREFERRED PROVIDER ORGANIZAT ION (PPO) [place] RE STATE INDE* * Mar 11, 2015 [id number] MADAI DELUNA SPOUSE [facility] (WNR) MEDICARE ADVANTAGE [facility] (WNR) Mar 11, 2021 [id number] GILL DELUNA PATIENT [facility] (WNR) MEDICARE ADVANTAGE [facility] (WNR) Sep 11, 2021 [id number] GILL DELUNA PATIENT Selected Encounter This section includes the [place] on [place] at [place] for the Encounter. Date/Time Encounter Type Encounter Description Reason Provider Source Oct 24, 2023 03:27 PM PRO PHONE CALL 11-20 MIN TELEPHONE PRIMARY CARE ICD-10-CM I11.9 Hypertensive heart disease without heart failure ALCIRA LAYNE [place] Encounter Template Text not used by [place] Assessments - Encounter Diagnoses This section includes the primary and secondary diagnoses documented for the Encounter. Date/Time Primary/Secondary Diagnosis Diagnosis Name Provider Source Oct 24, 2023 03:27 PM PRIMARY Hypertensive heart disease without heart failure ALCIRA LAYNE [facility] [place] [place] [facility] Plan of Treatment: Future Appointments [...] 27, 2023 08:00 AM AMBULATORY - [place]ICINE [place] [facility] Oct 27, 2023 11:00 AM AMBULATORY - MEDICINE [facility] Oct 30, 2023 06:00 PM AMBULATORY - [place]ICINE [place] [facility] Nov 07, 2023 10:00 AM AMBULATORY - MEDICINE [place] [facility] Nov 10, 2023 01:15 PM AMBULATORY - MEDICINE [place] [facility] Nov 13, 2023 12:00 PM AMBULATORY - MEDICINE [place] [facility] [place] [facility] Nov 20, 2023 11:00 AM AMBULATORY - MEDICINE [place] [facility] [facility] Nov 27, 2023 11:00 AM AMBULATORY - MEDICINE [place] [facility] [facility] Nov 28, 2023 11:00 AM AMBULATORY - MEDICINE [place] [facility] [facility] Dec 04, 2023 01:00 PM AMBULATORY - NONE [place] [facility] [place] [facility] Dec 11, 2023 11:00 AM AMBULATORY - MEDICINE [place] [facility] Dec 12, 2023 09:00 AM AMBULATORY - MEDICINE [place] [facility] January 15, 2024 01:40 PM AMBULATORY - MEDICINE [place] [facility] January 22, 2024 08:30 AM [facility]UL[facility] Mar 01, 2024 10:00 AM AMBULATORY - MEDICINE [place] [facility] Lab Results: +/- 30 days [...] Range Comment Nov 02, 2023 12:00 AM [place] OCCULT BLOOD FIT X1 SCREEN(IN-HOUSE) Sp ecimen Type: FECES No comment entered. Ordering Provider: MARIIA CABRAL Report Released Date/Time: Oct 27, 2023 12:56 PM Reporting Lab: [facility] [address] [id number] [facility] [address] [address] OCCULT BLOOD (FIT)#1 OF 1 Negative NEG [...] 12, 2022 03:10 PM VA-TOBACCO NEVER USED [place] [facility] Encounter Notes: All associated encounter notes This section contains the clinical notes associated to the Encounter. Date/Time Encounter Note(s) Provider Source Oct 24, 2023 03:27 PM CARE COORDINATION HOME TELEHEALTH E & M NOTE: LOCAL TITLE: HT CONTINUUM OF CARE NOTE STANDARD TITLE: CARE COORDINATION HOME TELEHEALTH E & M NOTE DATE OF NOTE: OCT 24, 2023@15:27 ENTRY DATE: OCT 24, 2023@15:27:13 AUTHOR: ALCIRA LAYNE COSIGNER: URGENCY: STATUS: COMPLETED HT CONTINUUM OF CARE NOTE Has ADDENDA HOME TELEHEALTH CONTINUUM OF CARE - Follow-up assessment 'S LIVING SITUATION: lives alone. [place] lives in a private home or apartment. PRIMARY (UNPAID) CAREGIVER INFORMATION: No unpaid caregiver: there is no one on whom the [place] relies on for any type of support. BASIC ACTIVITIES OF DAILY LIVING: In the last 7 days, has the [place] required help or supervision with the following activities? Bathing (tub bath, shower, or sponge) - Yes Uses a sponge with stick to clean back and hard to reach areas Dressing (lower and upper body) - No [...] In the last 7 days, has the [place] expressed difficulty with the following activities? Preparing meals (planning, cooking, setting out food/utensils) - No 's meals were not prepared by others. Performing [...] dependence - No Depression - Yes Dx: Depression, Recurrent Major Depression Delores - No PTSD or other [...] others as a result? No PROGNOSIS: The [place] has NOT had a recent (2-3 month) change in his/her level of functioning. The [place] has experienced a flare-up of a recurrent or chronic health problem in the last 7 days. Hypertension The direct care staff does NOT think the is capable of increased independence in ADLs, IADLs and/or mobility. The does NOT have a limited life expectancy of 6-12 months. NON-INSTITUTIONAL CARE/CHRONIC CARE MANAGEMENT SCORING SUMMARY: meets SIMRAN Criteria. [place] meets Category A SIMRAN criteria. [place] has one or more behaviors and/or cognitive problems (Sections E and F). The complexity of [place]'s care needs is greater than Home Telehealth services alone can provide. PACT, Endocrinology, Respiratory Therapy, Mental Health, Clinical pharmacist for diabetes management, Podiatry, Optometry, Community Cardiology Referral is not recommended. Services already in place? Yes TYPE OF ENCOUNTER: Telephone Length of call: 11-20 minutes /simone/ KAVITHA Albert, RN RPM-Home Telehealth [employer] Signed: 10/25/2023 07:10 10/25/2023 ADDENDUM STATUS: COMPLETED Average Response Rate July 2023-September 2023: 56.4% This meets SIMRAN criteria but is being placed in the NICLR (SIMRAN Low Responder) Category of Care due to not meeting participation requirements but is still benefitting from HT enrollment. /simone/ LLOYD AlbertN, RN [facility]-Home Telehealth [employer] Signed: 10/25/2023 07:43 ALCIRA LAYNE [place] [facility]
--- OUTSIDE RECORDS SUMMARY | 2024-08-21 23:29 | XMS_ITS | Encounter Summary ---
Author Name [facility] [place] Address [address] [place] [address] Care Team Providers Care Utility Operator Name Role Phone MARIIA BROUSSARD Primary [...] Patient's Relationship to Policy [employer] EXPRESS S[employer]IP[employer] ([id number]) PRESCRIPT ION [facility] Mar 11, 2018 [id number] MADAI DELUNA OTHER RELATIONSHIP [facility] PREFERRED PROVIDER ORGANIZAT ION (PPO) Jun 11, 2011 [id number] MADAI DELUNA PATIENT HUMANA [facility] (WNR) MEDICARE ADVANTAGE [facility] (WNR) Sep 11, 2022 [id number] [phone] GILL DELUNA PATIENT MEDICARE (WNR) MEDICARE (M) PART A January 10, 2012 PART A [id number] GILL DELUNA PATIENT MEDICARE (WNR) MEDICARE (M) PART B January 10, 2012 PART B [id number] [phone] GILL DELUNA PATIENT MEDICARE (WNR) MEDICARE (M) PART A January 10, 2012 PART A [id number] GILL DELUNA PATIENT UNICARE PREFERRED PROVIDER ORGANIZAT ION (PPO) [place] RE STATE THUYE* * Mar 11, 2015 [id number] MADAI DELUNA [facility] (WNR) MEDICARE ADVANTAGE [facility] (WNR) Mar 11, 2021 [id number] GILL DELUNA PATIENT WELLCARE [facility] (WNR) MEDICARE ADVANTAGE [facility] (WNR) Sep 11, 2021 [id number] [phone] IOANA DELUNAAGUSTO PATIENT Selected Encounter This section includes the information on record at [place] for the Encounter. Date/Time Encounter Type Encounter Description Reason Pro vider Source Oct 27, 2023 07:46 AM Outpatient Encounter TELEPHONE PRIMARY CARE IHE [...] 30, 2023 06:00 PM AMBULATORY - MEDICINE [facility] [place] [facility] Nov 07, 2023 10:00 AM AMBULATORY - MEDICINE [place] [facility] Nov 10, 2023 01:15 PM AMBULATORY - MEDICINE [place] [facility] Nov 13, 2023 12:00 PM AMBULATORY - MEDICINE [place] [facility] Nov 20, 2023 11:00 AM AMBULATORY - MEDICINE [place] [facility] [facility] Nov 27, 2023 11:00 AM AMBULATORY - MEDICINE [place] [facility] Nov 28, 2023 11:00 AM AMBULATORY - MEDICINE [place] [facility] Dec 04, 2023 01:00 PM AMBULATORY - NONE [place] [facility] [place] [facility] Dec 11, 2023 11:00 AM AMBULATORY - MEDICINE [place] [facility] Dec 12, 2023 09:00 AM AMBULATORY - MEDICINE [place] [facility] January 15, 2024 01:40 PM AMBULATORY - MEDICINE [place] [facility] January 22, 2024 08:30 AM [facility] Mar 01, 2024 10:00 AM AMBULATORY - MEDICINE [facility] NTRL [facility] Lab Results: +/- 30 days of the encounter This section includes the Chemistry and Hematology Lab Results on record with [place] for the patient. Radiology Reports and Pathology Reports are provided separately, in subsequent sections. Lab Results This section contains the Chemistry/Hematology Results that were resulted 30 days before or 30 daysafter the date of the Encounter. Date/Time Source Result Type Result - Unit Interpretation Reference Range Comment Nov 02, 2023 12:00 AM [place] OCCULT BLOOD FIT X1 SCREEN(IN-HOUSE) Sp ecimen Type: FECES No comment entered. Ordering Provider: MARIIA CABRAL Report Released Date/Time: Oct 27, 2023 12:56 PM Reporting Lab: [facility] [address] [facility] [address] Performing Lab: [facility] [address] [address] OCCULT BLOOD (FIT)#1 OF 1 Negative NEG [...] 12, 2022 03:10 PM VA-TOBACCO NEVER USED [facility] Encounter Notes: All associated encounter notes This section contains the clinical notes associated to the Encounter. Date/Time Encounter Note(s) Provider Source Oct 27, 2023 07:46 AM CARE COORDINATION HOME TELEHEALTH NOTE: LOCAL TITLE: HT NOTE STANDARD TITLE: CARE COORDINATION HOME TELEHEALTH NOTE DATE OF NOTE: OCT 27, 2023@07:46 ENTRY DATE: OCT 27, 2023@07:47:10 AUTHOR: ALCIRA LAYNEIGNER: URGENCY: STATUS: COMPLETED GILL DELUNA [id number]) Vital Sign for: 09/28/2023 - 10/27/2023 (All times are EST; All weights are lbs) Primary DMP: VHA-HTN Comorbid(s): Summary Weight Sys BP Barnett BP HR Pain High 178.4 184 96 107 Low 171.2 101 56 43 Average 174.8 146 78 72 Date Time Wt Time Sys Barnett Time HR Time Pain 10/26/2023 - 23:18 129/71 23:18 76 10/26/2023 [...] 10/20/2023 22:33 177.6 22:31 158/81 22:31 82 10/18/2023 23:56 176.2 23:55 132/72 23:55 80 10/14/2023 - 23:13 110/56 23:13 107 10/14/2023 - 22:55 184/83 22:55 46 10/14/2023 20:17 174.4 20:16 156/71 20:16 43 10/14/2023 - 11:44 114/77 11:44 53 10/14/2023 00:45 174.4 00:44 111/79 00:44 75 10/13/2023 22:44 174.2 22:42 172/76 22:42 47 10/13/2023 17:37 171.8 17:35 121/62 17:35 61 10/13/2023 15:04 172.2 15:02 154/79 15:02 43 10/13/2023 11:17 172.2 11:15 148/91 11:15 82 10/12/2023 22:16 175.4 22:15 151/71 22:15 44 10/12/2023 11:28 171.8 11:27 129/72 11:27 43 10/11/2023 12:41 171.2 12:40 141/79 12:40 89 10/10/2023 22:32 173.4 22:30 175/80 22:30 81 10/09/2023 21:23 172.8 21:22 164/80 21:22 99 10/08/2023 22:47 176.4 22:45 166/81 22:45 46 10/05/2023 22:40 176.4 22:38 160/96 22:38 81 10/04/2023 21:29 178.4 21:27 143/77 21:27 48 10/03/2023 23:19 177.4 23:18 136/87 23:18 99 10/02/2023 05:03 172.0 05:01 132/84 05:01 96 10/01/2023 21:42 175.4 21:40 146/79 21:40 93 09/30/2023 23:33 178.2 23:31 166/83 23:31 82 09/29/2023 22:32 177.4 22:31 131/86 22:31 59 09/28/2023 23:05 177.0 23:03 168/87 23:03 77 Source: [employer]; [employer] Adding HT data received from [place] over the past 30 days for your review for [place]'s scheduled appointments. Thank you! /simone/ KAVITHA Albert, RN RPM-Home Telehealth Supervisor [employer]dered [employer] Signed: 10/27/2023 07:47 Receipt Acknowledged By: 11/07/2023 12:29 /simone/ [employer] CLINICAL MEDICAL STAFF SERVICES MANAGER 10/27/2023 08:19 /simone/ MARIIA BROUSSARD MD [facility]YSICIAN [facility]
--- OUTSIDE RECORDS SUMMARY | 2024-08-21 23:29 | XMS_ITS | Encounter Summary ---
Author Name [facility] Organization [facility] Address [address] [place] [address] Care Team Providers Care Waiter/Waitress Name Role Phone MARIIA BROUSSARD Primary Care [...] Patient's Relationship to Policy [employer] ([id number]) PRESCRIPT ION [facility] Mar 11, 2018 [id number] MADAI DELUNA OTHER RELATIONSHIP [facility] PREFERRED PROVIDER ORGANIZAT ION (PPO) Jun 11, 2011 [id number] [phone] MADAI DELUNA PATIENT HU[employer] MCR (WNR) MEDICARE ADVANTAGE MCR (WNR) Sep 11, 2022 [id number] [place] PATIENT MEDICARE (WNR) MEDICARE (M) PART A January 10, 2012 PART A [id number] [place]IE [place] PATIENT MEDICARE (WNR) MEDICARE (M) PART B January 10, 2012 PART B [id number] [place] PATIENT MEDICARE (WNR) MEDICARE (M) PART A January 10, 2012 PART A [id number] GILL DELUNA PATIENT UN[employer]ARE PREFERRED PROVIDER ORGANIZAT KIANNA (PPO) CRISTHIAN LEAH MOREL THUYBelle* * Mar 11, 2015 [id number] MADAI DELUNA [facility] (WNR) MEDICARE ADVANTAGE [facility] (WNR) Mar 11, 2021 [id number] GILL DELUNA PATIENT [facility] [facility] (WNR) MEDICARE ADVANTAGE [facility] (WNR) Sep 11, 2021 [id number] [phone] GILL DELUNA PATIENT Selected Encounter This section includes the information on record at [place] for the Encounter. Date/Time Encounter Type Encounter Description Reason Provider Source Oct 02, 2023 10:45 AM PRO PHONE CALL 21-30 MIN TELEPHONE PRIMARY CARE ICD-10-CM E11.9 Type 2 diabetes mellitus without complications DARRICK ARMSTRONG [facility] Encounter Template Text not used by [place] Assessments - Encounter Diagnoses This section includes the primary and secondary diagnoses documented for the Encounter. Date/Time Primary/Secondary Diagnosis Diagnosis Name Provider Source Oct 02, 2023 10:45 AM PRIMARY Type 2 diabetes mellitus without complications BRANDON ARMSTRONG [place] Plan of Treatment: Future Appointments (+ 6 [...] 23, 2023 11:00 AM AMBULATORY - PSYCHIATRY [facility] [place] [facility] Oct 23, 2023 11:01 AM AMBULATORY - PS[place]CHIATRY [facility] [place] [facility] Oct 27, 2023 08:00 AM AMBULATORY - MEDICINE [place] [facility] [place] [facility] Oct 27, 2023 11:00 AM AMBULATORY - MEDICINE [facility] Oct 30, 2023 06:00 PM AMBULATORY - MEDICINE [facility] [place] [facility] Nov 07, 2023 10:00 AM AMBULATORY - MEDICINE [facility] [place] [facility] Nov 10, 2023 01:15 PM AMBULATORY - MEDICINE [facility] [place] [facility] Nov 13, 2023 12:00 PM AMBULATORY - MEDICINE [facility] [place] [facility] Nov 20, 2023 11:00 AM AMBULATORY - MEDICINE [facility] [place] [facility] Nov 27, 2023 11:00 AM AMBULATORY - MEDICINE [facility] [place] [facility] Nov 28, 2023 11:00 AM AMBULATORY - MEDICINE [facility] [place] [facility] Dec 04, 2023 01:00 PM AMBULATORY - NONE [facility] [place] [facility] Dec 11, 2023 11:00 AM AMBULATORY - MEDICINE [facility] [place] [facility] Dec 12, 2023 09:00 AM AMBULATORY - MEDICINE [facility] [place] [facility] January 15, 2024 01:40 PM AMBULATORY - MEDICINE [facility] [place] [facility] January 22, 2024 08:30 AM AMBULATORY - MEDIC[facility] Mar 01, 2024 10:00 AM AMBULATORY - MEDICINE [facility] [place] [facility] Social History: Smoking Status (Most [...] Facil [facility] Jul 06, 2021 09:30 AM VA-TOBACCO NEVER USED [facility] Tobacco Use History This section includes a history of the smoking, or tobacco-related health factors, that were collected on or before the date of the Encounter. The data comes from the [place] facility where the Encounter took place. Date/Time Smoking Status/Tobacco Use Comment F acility Apr 30, 2020 01:00 PM VA-TOBACCO FORMER USER [facility] Apr 30, 2020 01:00 PM [place]-TOBACCO QUIT 15 YRS OR MORE [facility] January 09, 2019 02:16 PM VA-TOBACCO FORMER USER [place] January 09, 2019 02:16 PM VA-TOBACCO QUIT 15 YRS OR MORE [facility] Feb 13, 2018 11:05 AM QUIT TOBACCO USE > 7 YEARS AGO [place] Feb 28, 2017 01:42 PM LIFETIME NON-TOBACCO USER quit 1975 [place] Nov 17, 2015 09:53 AM QUIT TOBACCO USE > 7 YEARS AGO [facility] February 08, 2002 03:04 PM QUIT TOBACCO USE > 7 YEARS AGO Patient states he smoked from age [age] and quit. [facility] Aug 10, 2001 03:42 PM NON-TOBACCO USER Stopped tobacco 35 years ago [facility] Encounter Notes: All associated encounter notes This section contains the clinical notes associated to the Encounter. Date/Time Encounter Note(s) Provider Source Oct 13, 2023 11:09 AM ADDENDUM: LOCAL TITLE: Addendum STANDARD TITLE: ADDENDUM DATE OF NOTE: OCT 13, 2023@11:09:58 ENTRY DATE: OCT 13, 2023@11:09:59 AUTHOR: LUX ARMSTRONG COSIGNER: URGENCY: STATUS: COMPLETED Will ask MSA to please schedule patient for: [X] CWM/SO/PHARM/PACT 2 [X] [facility] CLINIC NAME CWM/SO/VVC/PHARM PACT 2 RTC order placed. Appointment Length: _60__ minutes. Thank you /simone/ LUX ARMSTRONG CLINICAL SEASONAL TAX PREPARER Signed: 10/13/2023 11:10 Receipt Acknowledged By: 10/13/2023 12:46 /simone/ LORETA DAMICO --- Original Document --- 10/02/23 PHARMACY CLINIC NOTE: Patient Name: GILL DELUNA was seen via telephone for follow-up for diabetes management treatment. : January Age: 78 Sex: MALE Race: WHITE Subjective: Pt was followed up over telephone for [...] He is not however looking forward to [facility] holidays. He continues to work- has Mondays off. Per prev: Pt was contacted for a f/up. Last 3 days sensor readings much improved without any false readings. PT is using ugo 3 now. He had appt w/ PCP yesterday. He informed the flex o writer operator he decided to stopp empagliflozin 3 weeks [...] the reader. He has contacted the provided [employer] [place] dedicated line and received several replacement sensors [...] estate. Pt is seeing [facility] at the [place] and is grateful for that. He also [...] as instructed on 01/23/23. 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 He is glad he is on this equipment. The flex o writer operator spent close to 20 minutes trying to have pt accept the invitation without success. Both flex o writer operator and pt agreed for him to come [...] Benign Prostatic Hypertrophy with Outflow Obstruction (SCT [id number]) 3. Erectile Dysfunction ([facility] [id number]) 4. Depression ([facility] [id number]) 5. Actinic keratosis 6. Basal cell carcinoma of skin 7. Vitamin D Deficiency ([facility] [id number]) 8. Contact dermatitis 9. Space-occupying lesion of brain 10. Second degree atrioventricular block 11. Cancer screening follow up 12. Hyperglycemia due to type 2 diabetes mellitus 13. PVD-peripheral vascular disease 14. Hyperlipidemia 15. Elevated PSA 16. Epistaxis * 17. Sleep apnea (SNOMED CT 95831696) 18. Superficial basal cell carcinoma 19. Gastroesophageal reflux disease (SNOMED CT 634344293) 20. Anxiety 21. Diabetes mellitus (SNOMED CT 78936214) 22. Essential hypertension (SNOMED CT 14281733) 23. Body mass index 25-29 - overweight 24. Recurrent major depression in partial remission Objective: Diabetes Medication Regimen: -Insulin Novolog per ICR to 1:9 before breakfast and lunch; and 1:11 at dinner meal folow a meal dose calculator* ISF of 1:28 for BG >130 mg/dl pre meal -Insulin glargine Semglee 18 units daily hs @10 PM -Semaglutide 2mg once weekly (Mondays)- started 2 [...] 69.82 mL/min CRCL ADJ: 56.7 mL/min (08/14/23) Vitals: Weight (BMI): 172.8 lb [78.38 kg] [...] to the visit 06/27/23 ugo 3 upload day av mg/dl 16% VERY HIGH 43% [...] 138-168mg/dl; w/ morning fasting BG in 160's NUTRITION: Patient eats on avg. 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 Reviewed the labs obtained in August. A1C up to 7.9%. Recommend at this time to titrate insulin glargine. Pt reports singificant discrepancy between ugo 3 sensor and fingerstick above the alloted difference. At this time recommend to convert pt to dexcom sensor - pt would use the phone also. He was instructed to upload the [employer] meng on his phone. He will call the flex o writer operator when he can meet in October according to his work schedule. Reviewed nutrition in details. DIABETES A1c is ABOVE goal of <7% - Medication management Diabetes -c/t Insulin novolog per ICR to 1:7 before breakfast and lunch; and 1:10 at dinner meal malinda a meal dose calculator* provided at the previous visit ISF of 1:28 for BG >130 mg/dl pre meal -INCREASE Insulin glargine (Semglee) to 20 units daily hs @10 PM -C/t semaglutide [...] - Repeat A1c: 11/2022 HTN: [facility]; on ARB and ASA 81mg/day. Defer to PCP. ASCVD: LDL < 70, not on statin therapy; defer to PCP Microalb: 8.3 mg/G (12/2020); will order w/ next labs History of Preventive Care: Most recent visit to sewer and inspector: 04/2022 Most recent visit to optometry: 10/2021; Diabetes mellitus without retinopathy or macular edema Clinic's Next Scheduled Follow-up: pt to contact the flex o writer operator to schedule appt in October - dexcom G7 training if approved. No barriers; Patient understands and agrees to current treatment plan. If he has any questions, concerns, or changes in current health status [facility] will call [facility] FUTURE APPOINTMENTS: 10/09/2023 13:30 CWM/SO/CVT/MHC/IND HR CONSULTANT/[place] 10/09/2023 13:31 CWM/SO/CVT/MHC/IND HR CONSULTANT/[place] 11/10/2023 13:15 COM CARE-UROLOGY 01/22/2024 08:30 CWM/SO/PODIATRY/ROSS 05/16/2024 11:30 CWM/NO/DERMATOLOGY C/AM DM type is : T2D Length of Visit: 30 minutes PBM PharmD Pharmacotherapy Rem V12: PHARMACIST INTERVENTIONS: TYPE 2 DIABETES MELLITUS Medication monitoring, no dosage change required, continue to monitor and assess PBM PharmD Pharmacotherapy Rem V12: PHARMACIST INTERVENTIONS: TYPE 2 DIABETES MELLITUS Medication Intervention(s) Adjust dose or frequency of current medication due to other reason Plan: increase dose of insulin glargine /simone/ LUX ARMSTRONG CLINICAL SEASONAL TAX PREPARER Signed: 10/02/2023 13:38 Receipt Acknowledged By: 10/03/2023 08:35 /simone/ MARIIA BROUSSARD MD PHYSICIAN 10/13/2023 ADDENDUM STATUS: UNSIGNED You may not VIEW this UNSIGNED Addendum. LUX ARMSTRONG [facility] Oct 02, 2023 12:55 PM PHARMACY OUTPATIEN T NOTE: LOCAL TITLE: PHARMACY CLINIC NOTE STANDARD TITLE: PHARMACY OUTPATIENT NOTE DATE OF NOTE: OCT 02, 2023@12:55 ENTRY DATE: OCT 02, 2023@12:55:56 AUTHOR: LUX ARMSTRONG EXP COSIGNER: URGENCY: STATUS: COMPLETED PHARMACY CLINIC NOTE Has ADDENDA Patient Name: GILL DELUNA was seen via telephone for follow-up for diabetes management treatment. : January Age: 78 Sex: MALE Race: WHITE Subjective: Pt was followed up over telephone for [...] He is not however looking forward to [facility] holidays. He continues to work- has Mondays off. Per prev: Pt was contacted for a f/up. Last 3 days sensor readings much improved without any false readings. PT is using ugo 3 now. He had appt w/ PCP yesterday. He informed the flex o writer operator he decided to stopp empagliflozin 3 weeks [...] the reader. He has contacted the provided [employer] [place] dedicated line and received several replacement sensors [...] estate. Pt is seeing [facility] at the [place] and is grateful for that. He also [...] as instructed on 01/23/23. 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 He is glad he is on this equipment. The flex o writer operator spent close to 20 minutes trying to have pt accept the invitation without success. Both flex o writer operator and pt agreed for him to come [...] 2. Benign Prostatic Hypertrophy with Outflow Obstruction ([facility] [id number]) 3. Erectile Dysfunction ([facility] [id number]) 4. Depression ([facility] [id number]) 5. Actinic keratosis 6. Basal cell carcinoma of skin 7. Vitamin D Deficiency ([facility] 92873699) 8. Contact dermatitis 9. Space-occupying lesion of brain 10. Second degree atrioventricular block 11. Cancer screening follow up 12. Hyperglycemia due to type 2 diabetes mellitus 13. PVD-peripheral vascular disease 14. Hyperlipidemia 15. Elevated PSA 16. Epistaxis * 17. Sleep apnea (SNOMED CT 08016211) 18. Superficial basal cell carcinoma 19. Gastroesophageal reflux disease (SNOMED CT 954541117) 20. Anxiety 21. Diabetes mellitus (SNOMED CT 52205686) 22. Essential hypertension (SNOMED CT 58865410) 23. Body mass index 25-29 - overweight 24. Recurrent major depression in partial remission Objective: Diabetes Medication Regimen: -Insulin Novolog per ICR to 1:9 before breakfast and lunch; and 1:11 at dinner meal [employer] a meal dose calculator* ISF of 1:28 for BG >130 mg/dl pre meal -Insulin glargine Semglee 18 units daily hs @10 PM -Semaglutide 2mg once weekly (Mondays)- started 2 [...] 69.82 mL/min CRCL ADJ: 56.7 mL/min (08/14/23) Vitals: Weight (BMI): 172.8 lb [78.38 kg] [...] on him 01/09/23 average: 174 mg/dl January 03-January 09 >240mg/dl 8% 181-240 32% 70-180 60% <70 0% pt had two lows 55 and 69- in middle of the night 154 total scan 22 scans/day 93% of sensor data captured. 01/12/23 average: 178 mg/dl January 03-January 09 >240mg/dl 6% 181-240 37% 70-180 57% [...] 138-168mg/dl; w/ morning fasting BG in 160's NUTRITION: Patient eats on avg. 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 Reviewed the labs obtained in August. A1C up to 7.9%. Recommend at this time to titrate insulin glargine. Pt reports singificant discrepancy between ugo 3 sensor and fingerstick above the alloted difference. At this time recommend to convert pt to dexcom sensor - pt would use the phone also. He was instructed to upload the [employer] meng on his phone. He will call the flex o writer operator when he can meet in October according to his work schedule. Reviewed nutrition in details. DIABETES A1c is ABOVE goal of <7% - Medication management Diabetes -c/t Insulin novolog per ICR to 1:7 before breakfast and lunch; and 1:10 at dinner meal malinda a meal dose calculator* provided at the previous visit ISF of 1:28 for BG >130 mg/dl pre meal -INCREASE Insulin glargine (Semglee) to 20 units daily hs @10 PM -C/t semaglutide [...] of Preventive Care: Most recent visit to sewer and inspector: 04/2022 Most recent visit to optometry: 10/2021; Diabetes mellitus without retinopathy or macular edema Clinic's Next Scheduled Follow-up: pt to contact the flex o writer operator to schedule appt in October - dexcom G7 training if approved. No barriers; Patient understands and agrees to current treatment plan. If he has any questions, concerns, or changes in current health status [facility] will call [facility] FUTURE APPOINTMENTS: 10/09/2023 13:30 CWM/SO/CVT/MHC/IND HR CONSULTANT/[place] 10/09/2023 13:31 CWM/SO/CVT/MHC/IND HR CONSULTANT/[place] 11/10/2023 13:15 COM CARE-UROLOGY 01/22/2024 08:30 CWM/SO/PODIATRY/ROSS 05/16/2024 11:30 CWM/NO/DERMATOLOGY C/AM DM type is : T2D Length of Visit: 30 minutes PBM PharmD Pharmacotherapy Rem V12: PHARMACIST INTERVENTIONS: TYPE 2 DIABETES MELLITUS Medication monitoring, no dosage change required, continue to monitor and assess PBM PharmD Pharmacotherapy Rem V12: PHARMACIST INTERVENTIONS: TYPE 2 DIABETES MELLITUS Medication Intervention(s) Adjust dose or frequency of current medication due to other reason Plan: increase dose of insulin glargine /simone/ LUX ARMSTRONG CLINICAL SEASONAL TAX PREPARER Signed: 10/02/2023 13:38 Receipt Acknowledged By: 10/03/2023 08:35 /simone/ MARIIA BROUSSARD MD PHYSICIAN 10/13/2023 ADDENDUM STATUS: COMPLETED Will ask MSA to please schedule patient for: [X] CWM/SO/PHARM/PACT 2 [X] [facility] CLINIC NAME CWM/SO/VVC/PHARM PACT 2 RTC order placed. Appointment Length: _60__ minutes. Thank you /essence THOMASONIER CLINICAL SEASONAL TAX PREPARER Signed: 10/13/2023 11:10 Receipt Acknowledged By: 10/13/2023 12:46 /simone/ LORETA DAMICO 10/13/2023 ADDENDUM STATUS: COMPLETED [facility] APPRENTICE SPOKE WITH TO MAKE A TELE APPOINTMENT WITH PCP. /essence DAMICO Signed: 10/13/2023 12:47 LUX ARMSTRONG
--- OUTSIDE RECORDS SUMMARY | 2024-08-21 23:29 | XMS_ITS | Encounter Summary ---
Author Name [facility] [place] [facility] [place] Address [address] [place] [address] Care Team Providers Care Straight Knife Cutter Machine Name Role Phone MARIIA BROUSSARD Primary Care [...] Patient's Relationship to Policy [employer] [facility] ([id number]) PRESCRIPT ION [facility] Mar 11, 2018 [id number] [phone] MADAI DELUNA OTHER RELATIONSHIP [facility] PREFERRED PROVIDER ORGANIZAT ION (PPO) Jun 11, 2011 [id number] [phone] MADAI DELUNA PATIENT [facility] [facility] (WNR) MEDICARE ADVANTAGE [facility] (WNR) Sep 11, 2022 [id number] [phone] GILL DELUNA PATIENT MEDICARE (WNR) MEDICARE (M) PART A January 10, 2012 PART A [id number] GILL DELUNA PATIENT MEDICARE (WNR) MEDICARE (M) PART B January 10, 2012 PART B [id number] [phone] GILL DELUNA PATIENT MEDICARE (WNR) MEDICARE (M) PART A January 10, 2012 PART A [id number] [phone] GILL DELUNA PATIENT UNICARE PREFERRED PROVIDER ORGANIZAT ION (PPO) CRISTHIAN RE STATE INDE* * Mar 11, 2015 [id number] MADAI DELUNA SPOUSE [facility] (WNR) MEDICARE ADVANTAGE [facility] (WNR) Mar 11, 2021 [id number] GILL DELUNA PATIENT WELLCARE [facility] (WNR) MEDICARE ADVANTAGE [facility] (W[facility]) Sep 11, 2021 [id number] [phone] GILL DELUNA PATIENT Selected Encounter This section includes the information on record at [place] for the Encounter. Date/Time Encounter Type Encounter Description Reason Pro vider Source Oct 11, 2023 04:12 PM Outpatient Encounter TELEPHONE PRIMARY CARE IHE [...] AMBULATORY - [place]IATRY [place] [facility] [place] [facility] Oct 23, 2023 11:01 AM AMBULATORY - PS[place]CHIATRY [facility] [place] [facility] Oct 27, 2023 08:00 AM AMBULATORY - MEDICINE [place] [facility] [place] [facility] Oct 27, 2023 11:00 AM [facility] Oct 30, 2023 06:00 PM AMBULATORY - MEDICINE [place] [facility] [place] [facility] Nov 07, 2023 10:00 AM AMBULATORY - MEDICINE [place] [facility] [place] [facility] Nov 10, 2023 01:15 PM AMBULATORY - MEDICINE [place] [facility] [place] [facility] Nov 13, 2023 12:00 PM AMBULATORY - MEDICINE [place] [facility] [place] [facility] Nov 20, 2023 11:00 AM AMBULATORY - MEDICINE [place] [facility] [place] [facility] Nov 27, 2023 11:00 AM AMBULATORY - MEDICINE [facility] [place] [facility] Nov 28, 2023 11:00 AM AMBULATORY - MEDICINE [facility] [place] [facility] Dec 04, 2023 01:00 PM AMBULATORY - NONE [facility] [place] [facility] Dec 11, 2023 11:00 AM AMBULATORY - MEDICINE [place] [facility] [place] [facility] Dec 12, 2023 09:00 AM AMBULATORY - MEDICINE [place] [facility] [place] [facility] January 15, 2024 01:40 PM AMBULATORY - MEDICINE [place] [facility] [place] [facility] January 22, 2024 08:30 AM AMBULATORY - MEDICINE [facility] Mar 01, 2024 10:00 AM [facility] Lab Results: +/- 30 days [...] Range Comment Nov 02, 2023 12:00 AM [place] OCCULT BLOOD FIT X1 SCREEN(IN-HOUSE) Sp ecimen Type: FECES No comment entered. Ordering Provider: MARIIA CABRAL Report Released Date/Time: Oct 27, 2023 12:56 PM Reporting [facility] [address] [facility] [id number] [facility] [address] [address] OCCULT BLOOD (FIT)#1 OF 1 Negative NEG [...] VA-TOBACCO NEVER USED [facility] [place] [facility] Encounter Notes: All associated encounter notes This section contains the clinical notes associated to the Encounter. Date/Time Encounter Note(s) Provider Source Oct 11, 2023 04:12 PM CARE COORDINATION HOME TELEHEALTH NOTE: LOCAL TITLE: HT NOTE STANDARD TITLE: CARE COORDINATION HOME TELEHEALTH NOTE DATE OF NOTE: OCT 11, 2023@16:12 ENTRY DATE: OCT 11, 2023@16:12:41 AUTHOR: ZEINA WILD EXP COSIGNER: URGENCY: STATUS: COMPLETED EDAGUSTO DELUNA is a 78 yo MALE who is being sent to the Emergency Department for assessment and care. This has been authorized by MARIIA BROUSSARD Situation: Patient sent to ER for continued elevations in Blood Pressue, see below note for summary of today: Background: Patient had an elevated BP of 204/83, HR 88 around 11 am this morning. At that time patient was having anxiety and took PRN Lorazepam 0.5 mg. Patient instucted to take his morning BP medication and recheck in 30 minutes. Upon recheck his BP did improve to 160/89, HR 101 and after further time, 135/82, HR 100. His Primary Care provider was notified. Patient taking the following medications for HTN: Chlorthalidone daily Clodinine daily Valsartan daily Primary Care ordered an increase his Clonidine to BID. NEW SCHEDULE: Morning: Chlorthalidone and Clonidine Evening: Valsartan and Clonidine Patient called back at 15:30 with elevated BP of 193/100. Primary Care provider notified. Assessment/Recommendation: Provider recommended ER evaluation. Patient had not taken his evening Valsartan or Clonidine yet. Per providers recommendations Patient instructed to take evening Valsartan prior to going to the ER around 4 pm. Patient's ex- to drive [facility] ER for further eval. See below for further medication information including med list, problem list, and recent labwork. Pt. has a history of: Active problems - Computerized Problem List is the source for the followin. Bradycardia 2. Benign Prostatic Hypertrophy with Outflow Obstruction (SCT 377368108) 3. Erectile Dysfunction (SCT 181814762) 4. Depression (SCT 24000836) 5. Actinic keratosis 6. Basal cell carcinoma of skin 7. Vitamin D Deficiency ([facility] 77038237) 8. Contact dermatitis 9. Space-occupying lesion of brain 10. Second degree atrioventricular block 11. Cancer screening follow up 12. Hyperglycemia due to type 2 diabetes mellitus 13. PVD-peripheral vascular disease 14. Hyperlipidemia 15. Elevated PSA 16. Epistaxis * 17. Sleep apnea (SNOMED CT 36365415) 18. Superficial basal cell carcinoma 19. Gastroesophageal reflux disease (SNOMED CT 999514403) 20. Anxiety 21. Diabetes mellitus (SNOMED CT 91426411) 22. Essential hypertension (SNOMED CT 10585912) 23. Body mass index 25-29 - overweight 24. Recurrent major depression in partial remission Active Outpatient Medications (including Supplies): Active Outpatient Medications Status 1) CARBOXYMETHYLCELLULOSE NA 0.5% OPH SOLN INSTILL 1 ACTIVE DROP INTO EACH EYE THREE TIMES A DAY 2) CHLORTHALIDONE 25MG TAB TAKE ONE TABLET BY MOUTH ONCE ACTIVE DAILY TO REMOVE FLUID/CONTROL BLOOD PRESSURE 3) DEXTROSE 24GM/31GM SQUEEZE TUBE 1 TUBE BY MOUTH ACTIVE NEEDED FOR LOW BLOOD SUGAR 4) FINASTERIDE 5MG TAB TAKE ONE TABLET BY MOUTH ONCE ACTIVE DAILY FOR PROSTATE 5) GLUCOSE SENSOR FREESTYLE IVETH 3 USE 1 SENSOR ACTIVE DIRECTED EVERY 14 DAYS 6) INSULIN,ASPART(EQV-NOVLG)100UN/ ML FLXPEN INJECT ACTIVE DIRECTED SUBCUTANEOUSLY THREE TIMES A DAY ACCORDING TO ICR OF 1 UNIT FOR EACH 9 GRAMS OF CARBS BEFORE BREAKFAST AND LUNCH AND 1 UNIT FOR EACH 10 GRAMS OF CARBS BEFORE DINNER MEAL 7) INSULIN,GLARGINE-YFGN 100UNIT/ML PEN 3ML INJECT 18 ACTIVE (S) UNITS SUBCUTANEOUSLY ONCE DAILY 8) LORAZEPAM 0.5MG TAB TAKE ONE TABLET BY MOUTH ONCE ACTIVE DAILY FOR ANXIETY 9) NEEDLE,PEN 31G,5MM USE 1 NEEDLE SUBCUTANEOUSLY FOUR ACTIVE TIMES A DAY FOR USE WITH PEN DEVICE 10) SEMAGLUTIDE 2MG/0.75ML INJ PEN 3ML INJECT 2MG ACTIVE SUBCUTANEOUSLY ONCE A WEEK FOR TYPE 2 DIABETES MELLITUS 11) SILDENAFIL CITRATE 100MG TAB TAKE ONE TABLET BY MOUTH ACTIVE ONCE DAILY NEEDED TAKE 1 HOUR PRIOR TO SEXUAL ACTIVITY 12) VALSARTAN 320MG TAB TAKE ONE TABLET BY MOUTH ONCE ACTIVE (S) DAILY Pending Outpatient Medications Status 1) CLONIDINE HCL 0.1MG TAB TAKE ONE TABLET BY MOUTH PENDING EVERY 12 HOURS TO CONTROL BLOOD PRESSURE Active Non-VA Medications Status 1) Non-VA FLUTICASONE NASAL SOLN,NASAL INTO EACH ACTIVE NOSTRIL 14 Total Medications Allergies: NIFEDIPINE, LISINOPRIL, METFORMIN, CHANTIX RECENT VITAL SIGNS ===== Blood Pressure: 145/80 (06/26/2023 16:00) Pain: 0 (10/15/2021 14:52) Patient Height: 66 in [167.6 cm] (12/23/2020 10:32) Patient Weight: 172.8 lb [78.38 kg] (06/26/2023 15:51) Pulse: 72 (06/26/2023 15:51) Respiration: 20 (12/12/2022 15:08) Temperature: 97.9 F [36.6 C] (06/26/2023 15:51) Pulse Ox: Measurement DT POx (L/MIN)(%) 06/26/2023 15:51 95 ===== IMMUNIZATION HX PCE IMMUNIZATIONS ADMINISTERED Immunization Series Date Facility Reaction Info COVID-19 (MODERNA), MRNA, LNP-S,* 1 09/27/2022 [facility] COVID-19 (MODERNA), MRNA, LNP-S,* 3 08/28/2021 [place] <C> COVID-19 (MODERNA), MRNA, LNP-S,* 2 12/10/2020 [place] <C> COVID-19 (MODERNA), MRNA, LNP-S,* 1 11/12/2020 [place] <C> DTAP, UNSPECIFIED FORMULATION 03/17/2011 [facility] <C> FLU,3 YRS (HISTORICAL) No Site <C> FLU,3 YRS (HISTORICAL) 08/26/2014 [facility] <C> FLU,3 YRS (HISTORICAL) 07/31/2013 Outside [facility]* FLU,3 YRS (HISTORICAL) 10/02/2012 [place] <C> FLU,3 YRS (HISTORICAL) 09/29/2011 [facility] <C> FLU,3 YRS (HISTORICAL) 08/20/2010 [facility] <C> INFLUENZA VACCINE, QUADRIVALENT,* 06/07/2021 [facility] INFLUENZA, HIGH-DOSE, QUADRIVALE* 06/26/2023 No Site INFLUENZA, INJECTABLE, QUADRIVAL* 06/01/2020 [facility] INFLUENZA, INJECTABLE, QUADRIVAL* 07/30/2019 [place] <C> INFLUENZA, SEASONAL, INJECTABLE 07/04/2018 No Site INFLUENZA, SEASONAL, INJECTABLE 06/11/2017 No Site INFLUENZA, UNSPECIFIED FORMULATI* 06/18/2022 [facility]* PNEUMOCOCCAL CONJUGATE PCV 13 07/13/2016 [facility]* <C> PNEUMOCOCCAL POLYSACCHARIDE PPV23 09/12/2012 Outside [facility]* <C> PNEUMOCOCCAL, UNSPECIFIED FORMUL* 11/17/2011 [place] TDAP 02/27/2017 Family Ca* ZOSTER RECOMBINANT 2 08/03/[facility] ZOSTER RECOMBINANT 1 06/01/[facility] CONTRAINDICATED No data available REFUSED ======= No data available <C> See the Detailed Immunizations Health Summary Component[DIM] for Comments * Value is truncated; see the Detailed Immunizations Health Summary Component [DIM] for complete text PPD TESTING Labs PPDST - Skin Tests No data available RECENT IMAGING Include data from 10/11/2022 to 10/11/2023 10/11/2023 16:12 CONFIDENTIAL IMAGING REPORTS SUMMARY pg. 1 GILL DELUNA [id number] : 1945 II - Imaging Impression (max 1 occurrence) No data available IP - Imaging Profile 10/10/2022 OUTSIDE MRI BRAIN CPT Code: 79103 Exam Case Number: [id number] Exam Status: COMPLETE Rpt Status: ELECTRONICALLY NAMAN Technologist: 01/17/2014 ULTRASOUND AORTA CPT Code: 09720 Interpreting Staff: SMITA LOPEZ Exam Case Number: [id number] Exam Status: COMPLETE Rpt Status: VERIFIED Technologist: FLASH ROACH Reason for Study: US Abdomen, AAA screen Impression: Abdominal Aortic Ultrasound: Screening Previous: None Realtime ultrasound reveals proximal cross section of 2.8 cm, mid 2.0cm and distal 2.0 cm. Iliac artery cross section is 1.3 cm on the right and 1.2 cm on the left. Right kidney measures 11.7cm and left kidney measures 13 cm. Kidneys are worthy for one very large simple cyst in the mid pole left kidney measuring 9.3 x 8.7 x 9.2 cm and a simple peripelvic cyst in the right midpole kidney measuring 1.4 x 1.5 x 1.6 cm. Otherwise unremarkable kidneys. Conclusion: No AAA. 1 simple cyst per kidney. DX Codes: No immediate attention required ABDOMINAL AORTIC ANEURYSM NOT PRESENT 12/14/2011 CHEST 2 VIEWS PA&LAT CPT Code: 39024 Interpreting Staff: MANAS MADRIGAL MD Exam Case Number: [id number] Exam Status: COMPLETE Rpt Status: VERIFIED Technologist: ELSA HEATH Reason for Study: cough History: Cough, former smoker, blood tinged sputum Impression: Chest PA and lateral views from 12/14/1999 12. No priors. FINDINGS: Lungs are clear. No effusion. Cardiomediastinal contour within normal limits. CONCLUSION: No acute cardiopulmonary process. 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 There is no evidence of a stricture or of esophagitis. The stomach and duodenum are normal. Impression: Small sliding type hiatal hernia associated with minimal gastroesophageal reflux. DX Codes: ABNORMALITY, NO ATTN. NEEDED PRESENTLY 02/16/1996 CT ABDOMEN W/CONT CPT Code: 90118 Interpreting Staff: CAN MCCULLOUGH Exam Case Number: [id number] Exam Status: COMPLETE Rpt Status: VERIFIED Technologist: JUAN BUTT Reason for Study: History: R/O MEDULARY TUMOR OF SUPRA RENAL GLAND SERUM NOREPI IS 645.4 PG/ML (0-500) CREAT 1 BUN 23 [phone] Report: 5 mm. and 8 mm. sections were obtained from the lower chest through the top of the pelvis with oral contrast only. Lung bases are clear. Liver, spleen, stomach and gall bladder are normal. The pancreas also is normal. Both adrenal glands demonstrate normal size and configuration without a discreet lesion. In images 19 and 20, there is a small area of diminished attenuation along what is the superior margin of the left adrenal gland. The attenuation of this area is approximately -40 Hounsfield units, consistent with fat. It is unclear whether this represents volume averaging with adjacent retroperitoneal fat or whether this represents a tiny myelolipoma of the left adrenal gland. The former is more likely. There are two large cysts within the left kidney, confirmed by attenuation measurements. Retroperitoneal structures are otherwise unremarkable. The well opacified bowel loops demonstrate no gross abnormality. No focal lesion, mass effect, fluid collection or other abnormality is identified. Osseous structures and soft tissues of the abdominal wall are normal. Impression: 1. There is no evidence of pheochromocytoma within either adrenal gland. Both adrenals demonstrate normal size and configuration. 2. Images suggest slight volume averaging with adjacent fat along the superior margin of the left adrenal, with a tiny myelolipoma possible but much less likely. 3. Two large left renal cysts. 4. Otherwise normal examination. 5. Note is made that 10% of pheochromocytomas are extra-adrenal and further work-up for this entity could be performed with either a MIBG or Octreotide radionuclide scan. DX Codes: MINOR ABNORMALITY RECENT LABS Collection DT Spec WBC HGB HCT PLT K+/Pot Sodium HGBA1c 08/14/2023 08:00 SERUM 4.3 138 08/14/2023 08:00 BLOOD 7.9 H 05/04/2023 13:44 SERUM 4.1 138 05/04/2023 13:44 BLOOD 7.6 H 02/28/2023 08:43 SERUM 3.6 142 Collection DT Spec GLUCOSE CREATIN AST ALT T BILI ALK MI CHOL 08/14/2023 08:00 SERUM 138 H 1.00 05/04/2023 13:44 SERUM 226 H 0.96 02/28/2023 08:43 SERUM 195 H 0.92 01/12/2023 07:44 SERUM 168 H 0.98 24 23 0.6 65 108 11/15/2022 13:53 SERUM 185 H 1.02 24 25 0.6 66 122 Collection DT Spec LDL-c HDL TRIG TSH B12 SR- VIT D25 HIV Ag/ 08/14/2023 08:00 SERUM 23 01/12/2023 07:44 SERUM 48 40 101 1.68 23 11/15/2022 13:53 SERUM 64 46 60 07/12/2021 13:43 SERUM 31 04/07/2021 13:49 SERUM 29 Collection DT Spec UR GLUC RBC/HPF 08/21/2023 10:03 URINE 0-2 08/14/2023 08:00 URINE 21-50 H 02/01/2002 09:44 URINE Neg 07/09/2001 09:14 URINE Neg 09/14/2000 09:11 URINE Neg PATIENT DEMOGRAPHICS Address: [facility] [address] County: [place] Marital Status: Age: 78 Jew: [employer] Sex: MALE Occupation: [employer] Period of Service: [place] 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 [id number] OCT 12, 1985 [facility] [id number] SPOUSE MAR 11, 1996 [facility] [phone] SPOUSE MAR 11, 1996 [facility] [phone] SPOUSE MAR 11, 1998 [employer] ([employer] P [facility] [id number] MAY 12, 1999 [employer] P [id number] SEP 11, 2000 [facility] P [id number] JUN 11, 2011 [employer] RX P [id number] JUN 11, 2011 MEDICARE (WNR) S [id number] JANUARY 10, 2012 MEDICARE (WNR) S [id number] JANUARY 10, 2012 UNICARE P [id number] SPOUSE MAR 11, 2015 [place] P [id number] SPOUSE MAR 11, 2015 [facility] P [id number] SPOUSE MAR 11, 2015 [place] P [id number] SPOUSE MAR 11, 2015 [facility] P [id number] SPOUSE NOV 09, 2017 [facility] (0038 P [id number] SPOUSE MAR 11, 2018 MEDICARE (WNR) S [id number] FEB 09, 2021 [employer] [facility] MCR (WNR) P [id number] MAR 11, 2021 WELLCARE MCR (WNR) P [id number] SEP 11, 2021 HUMANA MCR (WNR) S [id number] MAY 12, 2022 [place] P [id number] NOV 14, 2021 [employer]NA MCR (WNR) P [id number] SEP 11, 2022 No barriers; Patient understands and agrees to current treatment plan. EMERGENCY ROOMS Emergency Room FAX # Tel # [facility] [phone] [facility] [phone] 2 [facility] Wing [phone] [place] [phone] [place] [phone] 2 [facility] [phone] 1 [place] [phone] 3 /es/ ZEINA WILD REGISTERED NURSE Signed: 10/11/2023 16:30 ZEINA WILD [facility]
--- OUTSIDE RECORDS SUMMARY | 2024-08-21 23:29 | XMS_ITS | Encounter Summary ---
Author Name [facility] Organization [facility] Address [address] [place] [address] Care Team Providers Care Admissions Clinician Name Role Phone MARIIA BROUSSARD Primary Care [...] Patient's Relationship to Policy [employer] ([id number]) PRESCRIPT ION [facility] Mar 11, 2018 [id number] MADAI DELUNA OTHER RELATIONSHIP [facility] PREFERRED PROVIDER ORGANIZAT ION (PPO) Jun 11, 2011 [id number] [phone] MADAI DELUNA PATIENT [facility] (WNR) MEDICARE ADVANTAGE [facility] (WNR) Sep 11, 2022 [id number] [phone] GILL DELUNA PATIENT MEDICARE (WNR) MEDICARE (M) PART A January 10, 2012 PART A [id number] GILL DELUNA PATIENT MEDICARE (WNR) MEDICARE (M) PART B January 10, 2012 PART B [id number] [phone] GILL DELUNA PATIENT MEDICARE (WNR) MEDICARE (M) PART A January 10, 2012 PART A [id number] GILL DELUNA PATIENT UNICARE PREFERRED PROVIDER ORGANIZAT ION (PPO) [facility] INDE* * Mar 11, 2015 [id number] MADAI DELUNA SPOUSE [facility] (WNR) MEDICARE ADVANTAGE [facility] (WNR) Mar 11, 2021 [id number] GILL DELUNA PATIENT [facility] (WNR) MEDICARE ADVANTAGE [facility] (WNR) Sep 11, 2021 [id number] [phone] GILL DELUNA PATIENT Selected Encounter This section includes the information on record at ID for the Encounter. Date/Time Encounter Type Encounter Description Reason Provider Source Oct 11, 2023 11:32 AM PRO PHONE CALL 21-30 MIN TELEPHONE/MEDICIN E ICD-10-CM I11.9 Hypertensive heart disease without heart failure RAAD WILD [facility] Encounter Template Text not used by ID Assessments - Encounter Diagnoses This section includes the primary and secondary diagnoses documented for the Encounter. Date/Time Primary/Secondary Diagnosis Diagnosis Name Provider Source Oct 11, 2023 11:32 AM PRIMARY Hypertensive heart disease without heart failure RAAD WILD [facility] Plan of Treatment: Future Appointments (+ 6 months) and Future Tests (+/- 45 days) The Plan of Treatment section includes future care activities for the patient from all ID treatmentfacilities. This section includes future appointments and future orders which are active, pending or scheduled. Future Appointments This section includes appointments that were scheduled to occur 6 months from the date of the Encounter, up to a maximum of 20 appointments. The data comes from all ID treatment facilities. Appointment Date/Time Appointment Type Appointme nt Facility Name Oct 23, 2023 11:00 AM AMBULATORY - PSYCHIATRY [facility] Oct 23, 2023 11:01 AM AMBULATORY - PS[facility]CHI[facility]RY [facility] Oct 27, 2023 08:00 AM AMBULATORY - MEDICINE [facility] Oct 27, 2023 11:00 AM AMBULATORY - MEDICINE [facility] Oct 30, 2023 06:00 PM AMBULATORY [facility]ICINE [facility] Nov 07, 2023 10:00 AM AMBULATORY [facility] Nov 10, 2023 01:15 PM AMBULATORY - MEDICINE [facility] Nov 13, 2023 12:00 PM AMBULATORY - MEDICINE [facility] Nov 20, 2023 11:00 AM AM[facility]ULATORY - [facility] Nov 27, 2023 11:00 AM AMBULATORY - MED[facility]INE [facility] Nov 28, 2023 11:00 AM AMBULATORY - MEDICINE [facility] Dec 04, 2023 01:00 PM AMBULATORY - NONE [facility] Dec 11, 2023 11:00 AM AMBULATORY - MEDICINE [facility] Dec 12, 2023 09:00 AM AMBULATORY - MEDICINE [facility] January 15, 2024 01:40 PM AMBULATORY - MEDICINE [facility] January 22, 2024 08:30 AM AMBULATORY - MEDICINE [facility] Mar 01, 2024 10:00 AM AMBULATORY - MEDICINE [facility] Lab Results: +/- 30 days of the encounter This section includes the Chemistry and Hematology Lab Results on record with ID for the patient. Radiology Reports and Pathology Reports are provided separately, in subsequent sections. Lab Results This section contains the Chemistry/Hematology Results that were resulted 30 days before or 30 daysafter the date of the Encounter. Date/Time Source Result Type Result - Unit Interpretation Reference Range Comment Nov 02, 2023 12:00 AM [place] OCCULT BLOOD FIT X1 SCREEN(IN-HOUSE) Sp ecimen Type: FECES No comment entered. Ordering Provider: MARIIA CABRAL Report Released Date/Time: Oct 27, 2023 12:56 PM Reporting Lab: [facility] [address] [id number] Performing Lab: [facility] [address] [facility] [id number] OCCULT BLOOD (FIT)#1 OF 1 Negative NEG Social History: Smoking Status (Most current) and Tobacco Use (All prior to encounter date) This section includes the most current, and the historical, smoking and tobacco- related health factors from the ID facility where the Encounter took place. Current Smoking Status This section includes the most current smoking, or tobacco-related health factor, from the ID facility where the Encounter took place. Date/Time Current Smoking Status Comment Facil ity Dec 12, 2022 03:10 PM [facility] Encounter Notes: All associated encounter notes This section contains the clinical notes associated to the Encounter. Date/Time Encounter Note(s) Provider Source Oct 11, 2023 04:40 PM ADDENDUM: LOCAL TITLE: Addendum STANDARD TITLE: ADDENDUM DATE OF NOTE: OCT 11, 2023@16:40:33 ENTRY DATE: OCT 11, 2023@16:40:34 AUTHOR: ZEINA WILD EXP COSIGNER: URGENCY: STATUS: COMPLETED sent to ER around 16:00 on 10/11/23. He is most likely on his way at this time. Faxed report to [facility] ER, see HT Note above. /simone/ ZEINA WILD REGISTERED NURSE Signed: 10/11/2023 16:42 Receipt Acknowledged By: 10/11/2023 17:12 /simone/ Marybeth Blanchard RN-BS Technical Adjuster === --- Original Document --- 10/11/23 HT INTERVENTION NOTE: is actively enrolled in the Home Telehealth program. Review of data shows the following out of range responses: GILL DELUNA (-[id number]) Vital Sign for: 09/12/2023 - 10/11/2023 (All times are EST; All weights are lbs) Primary DMP: VHA-HTN Comorbid(s): Summary Weight Sys BP Barnett BP HR Pain High 178.4 185 96 101 Low 171.2 118 74 44 Average 175.3 150 82 76 Date Time Wt Time Sys Barnett Time HR Time Pain 10/10/2023 22:32 173.4 22:30 175/80 22:30 81 [...] 09/28/2023 23:05 177.0 23:03 168/87 23:03 77 09/27/2023 23:16 175.6 23:14 118/75 23:14 88 09/27/2023 23:10 175.6 - - 09/18/2023 13:39 171.2 13:38 129/76 13:38 75 09/17/2023 23:55 174.8 23:54 148/76 23:54 73 09/15/2023 21:57 172.3 21:56 185/91 21:56 55 09/13/2023 23:32 174.7 23:31 140/78 23:31 101 09/12/2023 23:15 175.9 23:15 139/74 23:15 44 Source: [employer]; [employer] Assessment: identified by full name and . 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 Surprise reports using his home [employer] issues automatic BP cuff to recheck BP and it was 204/83, HR 88. Surprise reports using this BP device before with no issues and reliable BP readings. The cuff fits well and does not feel too snug. did try to relax before checking his BP but he acknowledges that he feels like he is having a panic attack. He is having lots of stress due to work and meeting deadlines. This morning his computer won't let him log in. He feels very frustrated and is thinking of retiring due to the stress he is experiencing at work. He took a Lorazepam for anxiety 15 minutes prior to this phone call. Initially instructed Surprise to seek immediate medical attention. hesitant but agreeable to Urgent Care visit. Reviewed [place] Act approved Urgent Care Center in his area, [facility]. Surprise reports taking his Chlorthalidone this morning but has not taken his Clonidine or Valsartan. Instructed to take his Clonidine. Notified PCP via Teams message of above report. reports feeling anxious and SOB, but this is typically how he feels when he is having a panic attack. Instructed to try and relax and practice breathing exercises. Surprise expressed understanding. Surprise to relax for the next 30 minutes and will recheck his BP at that time. On recheck BP 160/89, HR 101. discussed the stress he has been under. Offered a therapeutic space to discuss issues going on in Surprise's life right now. On recheck BP dropped further to 135/82, HR 100. PCP Notified and recommended starting Clonidine BID: NEW SCHEDULE: Morning: Chlorthalidone and Clonidine Evening: Valsartan and Clonidine Reviewed changes with who expressed understanding. called back around 15:30. BP has increased again to 193/100, HR 117. BS has also remained elevated today. Surprise's fasting BS was 260 this morning and it has remained in the 200s all day, which is unusual for Surprise. Surprise's ex- is on her way to drive to [facility] ER. Notified PCP via Teams and asked if an additional BP med should be taken prior to going to the ER. has yet to take his evening Valsartan. PCP asked that be instructed to take his Valsartan right away and tomorrow take it at 8 pm to transition this med to an evening schedule (has previously been taking in the morning, but will now take in the evening with the change to Chlorthalidone in the morning). denies drinking any alcohol or smoking. He is unsure why his BP continues to be elevated. PCP recommends ER evaluation. Notifying Transfer Coordinators and Office of Community Care of 's transfer to a higher level of care, [facility] ER in [place]. TYPE OF ENCOUNTER: Telephone Length of call: 21-30 minutes /simone/ ZEINA WILD REGISTERED NURSE Signed: 10/11/2023 16:10 Receipt Acknowledged By: * AWAITING SIGNATURE * PEYTON BROUSSARD 10/11/2023 16:16 /RAMSEY Delgadillo Technical Adjuster * AWAITING SIGNATURE * SHAHBAZ BACON * AWAITING SIGNATURE * TIANA ERICKSON 10/11/2023 ADDENDUM STATUS: COMPLETED There is no record of Surprise presenting to [facility] ED on 10/11/23. /RAMSEY Delgadillo Technical Adjuster Signed: 10/11/2023 16:17 ZEINA WILD [facility] Oct 11, 2023 11:32 AM CARE COORDINATION HOME TELEHEALTH FOLLOW-UP NOTE: LOCAL TITLE: HT INTERVENTION NOTE STANDARD TITLE: CARE COORDINATION HOME TELEHEALTH FOLLOW-UP NOTE DATE OF NOTE: OCT 11, 2023@11:32 ENTRY DATE: OCT 11, 2023@11:32:29 AUTHOR: ZEINA WILD EXP COSIGNER: URGENCY: STATUS: COMPLETED HT INTERVENTION NOTE Has ADDENDA Surprise is actively enrolled in the Home Telehealth program. Review of data shows the following out of range responses: GILL DELUNA (-[id number]) Vital Sign for: 09/12/2023 - 10/11/2023 (All times are EST; All weights are lbs) Primary DMP: VHA-HTN Comorbid(s): Summary Weight Sys BP Barnett BP HR Pain High 178.4 185 96 101 Low 171.2 118 74 44 Average 175.3 150 82 76 Date Time Wt Time Sys Barnett Time HR Time Pain 10/10/2023 22:32 173.4 22:30 175/80 22:30 81 [...] 09/28/2023 23:05 177.0 23:03 168/87 23:03 77 09/27/2023 23:16 175.6 23:14 118/75 23:14 88 09/27/2023 23:10 175.6 - - 09/18/2023 13:39 171.2 13:38 129/76 13:38 75 09/17/2023 23:55 174.8 23:54 148/76 23:54 73 09/15/2023 21:57 172.3 21:56 185/91 21:56 55 09/13/2023 23:32 174.7 23:31 140/78 23:31 101 09/12/2023 23:15 175.9 23:15 139/74 23:15 44 Source: [employer]; [employer] System Assessment: identified by full name and . 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 reports using his home [employer] issues automatic BP cuff to recheck BP and it was 204/83, HR 88. reports using this BP device before with no issues and reliable BP readings. The cuff fits well and does not feel too snug. Surprise did try to relax before checking his BP but he acknowledges that he feels like he is having a panic attack. He is having lots of stress due to work and meeting deadlines. This morning his computer won't let him log in. He feels very frustrated and is thinking of retiring due to the stress he is experiencing at work. He took a Lorazepam for anxiety 15 minutes prior to this phone call. Initially instructed Surprise to seek immediate medical attention. hesitant but agreeable to Urgent Care visit. Reviewed [place] Act approved Urgent Care Center in his area, [facility] on [facility]. Surprise reports taking his Chlorthalidone this morning but has not taken his Clonidine or Valsartan. Instructed to take his Clonidine. Notified PCP via Teams message of above report. Surprise reports feeling anxious and SOB, but this is typically how he feels when he is having a panic attack. Instructed Surprise to try and relax and practice breathing exercises. Surprise expressed understanding. to relax for the next 30 minutes and will recheck his BP at that time. On recheck BP 160/89, HR 101. Surprise discussed the stress he has been under. Offered a therapeutic space to discuss issues going on in Surprise's life right now. On recheck BP dropped further to 135/82, HR 100. PCP Notified and recommended starting Clonidine BID: NEW SCHEDULE: Morning: Chlorthalidone and Clonidine Evening: Valsartan and Clonidine Reviewed changes with who expressed understanding. called back around 15:30. BP has increased again to 193/100, HR 117. BS has also remained elevated today. Surprise's fasting BS was 260 this morning and it has remained in the 200s all day, which is unusual for . 's ex- is on her way to drive to [facility] ER. Notified PCP via Teams and asked if an additional BP med should be taken prior to going to the ER. Surprise has yet to take his evening Valsartan. PCP asked that Surprise be instructed to take his Valsartan right away and tomorrow take it at 8 pm to transition this med to an evening schedule (has previously been taking in the morning, but will now take in the evening with the change to Chlorthalidone in the morning). denies drinking any alcohol or smoking. He is unsure why his BP continues to be elevated. PCP recommends ER evaluation. Notifying Transfer Coordinators and Office of Community Care of Surprise's transfer to a higher level of care, [facility] ER in [place]. TYPE OF ENCOUNTER: Telephone Length of call: 21-30 minutes /essence WILD REGISTERED NURSE Signed: 10/11/2023 16:10 Receipt Acknowledged By: * AWAITING SIGNATURE * PEYTON BROUSSARD 10/11/2023 16:16 /simone/ RAMSEY German Technical Adjuster 10/13/2023 08:11 /simone/ SHAHBAZ DAMICO * AWAITING SIGNATURE * TIANA ERICKSON 10/11/2023 ADDENDUM STATUS: COMPLETED There is no record of presenting to [facility] ED on 10/11/23. /RAMSEY Delgadillo Technical Adjuster Signed: 10/11/2023 16:17 10/11/2023 ADDENDUM STATUS: COMPLETED Surprise sent to ER around 16:00 on 10/11/23. He is most likely on his way at this time. Faxed report to [facility] ER, see HT Note above. /essence WILD REGISTERED NURSE Signed: 10/11/2023 16:42 Receipt Acknowledged By: 10/11/2023 17:12 /RAMSEY Delgadillo Technical Adjuster ZEINA WILD [facility]
--- OUTSIDE RECORDS SUMMARY | 2024-08-21 23:29 | XMS_ITS | Encounter Summary ---
Author Name [place] Address [address] [place] [address] Care Team Providers Care Route Process Administrator Name Role Phone MARIIA BROUSSARD Primary Care [...] Patient's Relationship to Policy Mancera EXPRESS SCRIPTS ([id number]) PRESCRIPT ION [facility] Mar 11, 2018 [id number] MADAI DELUNA OTHER RELATIONSHIP [facility] PREFERRED PROVIDER ORGANIZAT ION (PPO) Jun 11, 2011 [id number] MADAI DELUNA PATIENT HUMANA [facility] (WNR) MEDICARE ADVANTAGE [facility] (WNR) Sep 11, 2022 [id number] [phone] GILL DELUNA PATIENT MEDICARE (WNR) MEDICARE (M) PART A January 10, 2012 PART A [id number] [phone] GILL DELUNA PATIENT MEDICARE (WNR) MEDICARE (M) PART B January 10, 2012 PART B [id number] GILL DELUNA PATIENT MEDICARE (WNR) MEDICARE (M) PART A January 10, 2012 PART A [id number] GILL DELUNA PATIENT UNICARE PREFERRED PROVIDER ORGANIZAT ION (PPO) [place] RE STATE INDE* * Mar 11, 2015 [id number] MADAI DELUNA SPOUSE [facility] (WNR) MEDICARE ADVANTAGE [facility] (WNR) Mar 11, 2021 [id number] GILL DELUNA PATIENT [facility] (WNR) MEDICARE ADVANTAGE [facility] (WNR) Sep 11, 2021 [id number] GILL DELUNA PATIENT Selected Encounter This section includes the information on record at [place] for the Encounter. Date/Time Encounter Type Encounter Description Reason Provider Source Oct 12, 2023 01:49 PM HC PRO PHONE CALL 5-10 MIN TELEPHONE/MEDICIN E ICD-10-CM I11.9 Hypertensive heart disease without heart failure RAAD WILD [facility] Encounter Template Text not used by [place] Assessments - Encounter Diagnoses This section includes the primary and secondary diagnoses documented for the Encounter. Date/Time Primary/Secondary Diagnosis Diagnosis Name Provider Source Oct 12, 2023 01:49 PM PRIMARY Hypertensive heart disease without heart [...] 23, 2023 11:00 AM [facility] Oct 23, 2023 11:01 AM [facility] Oct 27, 2023 08:00 AM [facility] Oct 27, 2023 11:00 AM [facility] Oct 30, 2023 06:00 PM [facility] [place] [facility] Nov 07, 2023 10:00 AM AMBULATORY - MEDICINE [facility] [place] [facility] Nov 10, 2023 01:15 PM AMBULATORY - MEDICINE [facility] [place] [facility] Nov 13, 2023 12:00 PM AMBULATORY - MEDICINE [facility] [place] [facility] Nov 20, 2023 11:00 AM AMBULATORY - MEDICINE [facility] [place] [facility] Nov 27, 2023 11:00 AM AMBULATORY - MEDICINE [facility] [place] [facility] Nov 28, 2023 11:00 AM AMBULATORY - MEDICINE [facility] [place] [facility] Dec 04, 2023 01:00 PM AMBULATORY - NONE [place] [facility] [place] [facility] Dec 11, 2023 11:00 AM AMBULATORY - MEDICINE [facility] [place] [facility] Dec 12, 2023 09:00 AM AMBULATORY - MEDICINE [facility] [facility] January 15, 2024 01:40 PM AMBULATORY - MEDICINE [facility] [place] [facility] January 22, 2024 08:30 AM AMBULATORY - MEDICINE [facility] Mar 01, 2024 10:00 AM AMBULATORY - MEDICINE [place] [facility] [place] [facility] Lab Results: +/- 30 [...] Range Comment Nov 02, 2023 12:00 AM [place] OCCULT BLOOD FIT X1 SCREEN(IN-HOUSE) Sp ecimen Type: FECES No comment entered. Ordering Provider: MARIIA CABRAL Report Released Date/Time: Oct 27, 2023 12:56 PM Reporting Lab: [place] [facility] [place] [address] [address] Performing Lab: [place] [facility] [place] [facility] [address] [facility] [id number] OCCULT BLOOD (FIT)#1 OF 1 Negative NEG [...] 12, 2022 03:10 PM VA-TOBACCO NEVER USED [facility] Encounter Notes: All associated encounter notes This section contains the clinical notes associated to the Encounter. Date/Time Encounter Note(s) Provider Source Oct 13, 2023 11:34 AM ADDENDUM: LOCAL TITLE: Addendum STANDARD TITLE: ADDENDUM DATE OF NOTE: OCT 13, 2023@11:34:14 ENTRY DATE: OCT 13, 2023@11:34:15 AUTHOR: ZEINA WILD COSIGNER: URGENCY: STATUS: COMPLETED called this tech writer. He would like to convert to Dexcom sensor. He has tried to reach out to his Clinical Pharmacist, Keesha Armstrong, to schedule a visit. Notified Clinical Pharmacist via Teams. [facility] to reach out to schedule visit to transition to Dexcom sensor. [place] states he is only available 10/25 and 10/27 due to busy work schedule this month. /simone/ ZEINA WILD REGISTERED NURSE Signed: 10/13/2023 11:36 Receipt Acknowledged By: 10/17/2023 11:37 /simone/ KEESHA ARMSTRONG CLINICAL PROCESSING TECHNOLOGIST ========= --- Original Document --- 10/12/23 HT INTERVENTION NOTE: is actively enrolled in the Home Telehealth program. Review of data shows the following out of range responses: GILL DELUNA (-1940) Vital Sign for: 09/13/2023 - 10/12/2023 (All times are EST; All weights are lbs) Primary DMP: VHA-HTN Comorbid(s): Summary Weight Sys BP Barnett BP HR Pain High 178.4 185 96 101 Low 171.2 118 72 43 Average 174.8 149 82 77 Date Time Wt Time Sys Barnett Time HR Time Pain 10/12/2023 11:28 171.8 11:27 129/72 11:27 43 [...] 09/13/2023 23:32 174.7 23:31 140/78 23:31 101 Source: [employer]; [employer] Pro System Assessment: [place] identified by full name and . Called to check in due to low HR of 43. [place] reports this is a known issue, which he sees a Biomathematician for. He denies any symptoms at this time. Denies dizziness or lightheadedness, fatigue, fainting or near fainting. Feels good after resting this morning. provided with NON VA ER Visit National Hotline number for notification of ER visit: . [place] aware of when to call 911. expressed appreciation for the phone call. TYPE OF ENCOUNTER: Telephone Length of call: 5-10 minutes /simone/ ZEINA WILD REGISTERED NURSE Signed: 10/12/2023 14:17 Receipt Acknowledged By: 10/14/2023 10:54 /es/ MARIIA BROUSSARD MD PHYSICIAN ZEINA WILD [place] [facility] [place] [facility] Oct 12, 2023 01:49 PM CARE COORDINATION HOME TELEHEALTH FOLLOW-UP NOTE: LOCAL TITLE: HT INTERVENTION NOTE STANDARD TITLE: CARE COORDINATION HOME TELEHEALTH FOLLOW-UP NOTE DATE OF NOTE: OCT 12, 2023@13:49 ENTRY DATE: OCT 12, 2023@13:49:31 AUTHOR: JUNITO,ZEINA AL EXP COSIGNER: URGENCY: STATUS: COMPLETED HT INTERVENTION NOTE Has ADDENDA [place] is actively enrolled in the Home Telehealth program. Review of data shows the following out of range responses: GILL DELUNA (-[id number]) Vital Sign for: 09/13/2023 - 10/12/2023 (All times are EST; All weights are lbs) Primary DMP: VHA-HTN Comorbid(s): Summary Weight Sys BP Barnett BP HR Pain High 178.4 185 96 101 Low 171.2 118 72 43 Average 174.8 149 82 77 Date Time Wt Time Sys Barnett Time HR Time Pain 10/12/2023 11:28 171.8 11:27 129/72 11:27 43 [...] 09/13/2023 23:32 174.7 23:31 140/78 23:31 101 Source: [employer]; [employer] System Assessment: [place] identified by full name and . Called to check in due to low HR of 43. [place] reports this is a known issue, which he sees a Biomathematician for. He denies any symptoms at this time. Denies dizziness or lightheadedness, fatigue, fainting or near fainting. Feels good after resting this morning. provided with NON VA ER Visit National Hotline number for notification of ER visit: . aware of when to call 911. expressed appreciation for the phone call. TYPE OF ENCOUNTER: Telephone Length of call: 5-10 minutes /simone/ ZEINA WILD REGISTERED NURSE Signed: 10/12/2023 14:17 Receipt Acknowledged By: 10/14/2023 10:54 /simone/ MARIIA BROUSSARD MD PHYSICIAN 10/13/2023 ADDENDUM STATUS: COMPLETED [place] called this tech writer. He would like to convert to Dexcom sensor. He has tried to reach out to his Clinical Pharmacist, Keesha Armstrong, to schedule a visit. Notified Clinical Pharmacist via Teams. [facility] to reach out to schedule visit to transition to Dexcom sensor. [place] states he is only available 10/25 and 10/27 due to busy work schedule this month. /simone/ ZEINA WILD REGISTERED NURSE Signed: 10/13/2023 11:36 Receipt Acknowledged By: * AWAITING SIGNATURE * KEESHA ARMSTRONG SHAYNA ALEXIS [facility]
--- OUTSIDE RECORDS SUMMARY | 2024-08-21 23:29 | XMS_ITS | Encounter Summary ---
Author Name [place] Address [address] [place] [address] Care Team Providers Care Devulcanizer Loader Name Role Phone MARIIA BROUSSARD Primary Care [...] Patient's Relationship to Policy Man[employer] EXPRESS SCRIPTS ([id number]) PRESCRIPT ION [facility] Mar 11, 2018 [id number] MADAI DELUNA OTHER RELATIONSHIP [facility] PREFERRED PROVIDER ORGANIZAT ION (PPO) Jun 11, 2011 [id number] MADAI DELUNA PATIENT HUMANA [facility] (WNR) MEDICARE ADVANTAGE [facility] (WNR) Sep 11, 2022 [id number] [phone] GILL DELUNA PATIENT MEDICARE (WNR) MEDICARE (M) PART A January 10, 2012 PART A [id number] GILL DELUNA PATIENT MEDICARE (WNR) MEDICARE (M) PART B January 10, 2012 PART B [id number] [phone] GILL DELUNA PATIENT MEDICARE (WNR) MEDICARE (M) PART A January 10, 2012 PART A [id number] GILL DELUNA PATIENT UNICARE PREFERRED PROVIDER ORGANIZAT ION (PPO) [place] RE STATE INDE* * Mar 11, 2015 [id number] MADAI DELUNA SPOUSE [facility] (WNR) MEDICARE ADVANTAGE [facility] (WNR) Mar 11, 2021 [id number] GILL DELUNA PATIENT WELLCARE [facility] (WNR) MEDICARE ADVANTAGE [facility] (WNR) Sep 11, 2021 [id number] GILL DELUNA PATIENT Selected Encounter This section includes the information on record at [place] for the Encounter. Date/Time Encounter Type Encounter Description Reason Provider Source Oct 31, 2023 09:23 AM PRO PHONE CALL 5-10 MIN TELEPHONE/MEDICIN E ICD-10-CM R00.1 Bradycardia, unspecified ASHLI ELMORE [place] Encounter Template Text not used by [place] Assessments - Encounter Diagnoses This section includes the primary and secondary diagnoses documented for the Encounter. Date/Time Primary/Secondary Diagnosis Diagnosis Name Provider Source Oct 31, 2023 09:23 AM PRIMARY Bradycardia, unspecified ASHLI ELMORE [facility] Oct 31, 2023 09:23 AM SECONDARY Hypertensive heart disease without heart failure ASHLI ELMORE [facility] Plan of Treatment: Future Appointments (+ 6 months) and Future Tests (+/- 45 days) The Plan of Treatment section includes future care activities for the patient from all [place] treatmentfacilities. This section includes future appointments and future orders which are active, pending or scheduled. Future Appointments This section includes appointments that were scheduled to occur 6 months from the date of the Encounter, up to a maximum of 20 appointments. The data comes from all [place] treatment facilities. Appointment Date/Time Appointment Type Appointme nt Facility Name Nov 07, 2023 10:00 AM [facility] Nov 10, 2023 01:15 PM [facility] Nov 13, 2023 12:00 PM AMBULATORY - MEDICINE [place] [facility] [place] [facility] Nov 20, 2023 11:00 AM AMBULATORY - MEDICINE [facility] [place] [facility] Nov 27, 2023 11:00 AM AMBULATORY - MEDICINE [facility] [place] [facility] Nov 28, 2023 11:00 AM AMBULATORY - MEDICINE [facility] [place] [facility] Dec 04, 2023 01:00 PM AMBULATORY - NONE [facility] [place] [facility] Dec 11, 2023 11:00 AM AMBULATORY - MEDICINE [place] [facility] [place] [facility] Dec 12, 2023 09:00 AM AMBULATORY - MEDICINE [place] [facility] [place] [facility] January 15, 2024 01:40 PM AMBULATORY - MEDICINE [place] [facility] [facility] January 22, 2024 08:30 AM AMBULATORY - MEDICINE [facility] Mar 01, 2024 10:00 AM AMBULATORY - [facility] [place] [facility] Lab Results: +/- 30 days of the encounter This section includes the Chemistry and Hematology Lab Results on record with [place] for the patient. Radiology Reports and Pathology Reports are provided separately, in subsequent sections. Lab Results This section contains the Chemistry/Hematology Results that were resulted 30 days before or 30 daysafter the date of the Encounter. Date/Time Source Result Type Result - Unit Interpretation Reference Range Comment Nov 02, 2023 12:00 AM [place] OCCULT BLOOD FIT X1 SCREEN(IN-HOUSE) Sp ecimen Type: FECES No comment entered. Ordering Provider: MARIIA CABRAL Report Released Date/Time: Oct 27, 2023 12:56 PM Reporting [facility] [address] [facility] [id number] Performing Lab: [facility] [address] [facility] [facility] [address] OCCULT BLOOD (FIT)#1 OF 1 Negative NEG Social History: Smoking Status (Most current) and Tobacco Use (All prior to encounter date) This section includes the most current, and the historical, smoking and tobacco- related health factors from the [place] facility where the Encounter took place. Current Smoking Status This section includes the most current smoking, or tobacco-related health factor, from the [place] facility where the Encounter took place. Date/Time Current Smoking Status Comment Facil [facility] Dec 12, 2022 03:10 PM VA-TOBACCO NEVER USED [place] [facility] [facility] Encounter Notes: All associated encounter notes This section contains the clinical notes associated to the Encounter. Date/Time Encounter Note(s) Provider Source Oct 31, 2023 09:23 AM CARE COORDINATION HOME TELEHEALTH FOLLOW-UP NOTE: LOCAL TITLE: HT INTERVENTION NOTE STANDARD TITLE: CARE COORDINATION HOME TELEHEALTH FOLLOW-UP NOTE DATE OF NOTE: OCT 31, 2023@09:23 ENTRY DATE: OCT 31, 2023@09:23:43 AUTHOR: ASHLI ELMORE COSIGNER: URGENCY: STATUS: COMPLETED is actively enrolled in the Home Telehealth program. Review of data shows the following out of range responses: Assessment:GILL DELUNA (-3228) Vital Sign for: 10/27/2023 - 10/31/2023 (All times are EST; All weights are lbs) Primary DMP: VHA-HTN Comorbid(s): Summary Weight Sys BP Barnett BP HR Pain High 177.0 175 86 87 Low 172.6 108 61 38 Average 175.5 144 74 59 Date Time Wt Time Sys Barnett Time HR Time Pain 10/31/2023 - 05:55 160/81 05:55 46 10/30/2023 [...] 10/27/2023 19:33 176.4 19:31 137/70 19:31 82 Source: [employer]; [employer] Intervention(s)/Plan:Phone call to who is identified by full name and to review readings, assess status,symptoms of bradycardia. Vet with Hx Bradyarrhythmia with low heart rate of 38 on 10/30/2023 which is unusual for him. HR past 30 days 43-107. Vet reports I'm working with my Manager Administration to determine if a pacemaker is appropriate. I've had 2 Zio monitors Vet reports Corinna never had any dizziness, lightheadedness, or felt faint. Vet denies CP, SOB, LE swelling, diaphoresis, unusual fatigue or difficulty managing usual activities. BP is quite labile. Vet reports its been like this for a while. Vet reports taking medications as prescribed. He denies headaches, visual changes, palpitations,pounding or racing heart. Reviewed medications, compliance with good compliance reported. Vet requests refill Ozempic. Reviewed symptoms of bradycardia when and where to seek medical attention. Vet verbalizes understanding. For review by provider. TYPE OF ENCOUNTER: Telephone Length of call: 5-10 minutes /simone/ Ashli Elmore RN,BSN [facility] Registered Nurse Signed: 10/31/2023 13:21 Receipt Acknowledged By: 11/01/2023 01:23 /simone/ MARIIA BROUSSARD MD PHYSICIAN ASHLI ELMORE [facility]
--- OUTSIDE RECORDS SUMMARY | 2024-08-21 23:29 | XMS_ITS ---
Author Name Department [place] Organization [place] Address [address] [place] [address] Care Team Providers Care Director Of Athletics Name Role Phone MARIIA BROUSSARD Primary Care [...] Patient's Relationship to Policy Man[employer]a EXPRESS SCRIPTS ([id number]) PRESCRIPT ION [facility] Mar 11, 2018 [id number] [phone] MADAI DELUNA OTHER RELATIONSHIP [facility] PREFERRED PROVIDER ORGANIZAT ION (PPO) Jun 11, 2011 [id number] [phone] MADAI DELUNA PATIENT HUMANA [facility] (WNR) MEDICARE ADVANTAGE [facility] (WNR) Sep 11, 2022 [id number] [phone] [place] PATIENT MEDICARE (WNR) MEDICARE (M) PART A January 10, 2012 PART A [id number] [place] PATIENT MEDICARE (WNR) MEDICARE (M) PART B January 10, 2012 PART B [id number] GILL DELUNA PATIENT MEDICARE (WNR) MEDICARE (M) PART A January 10, 2012 PART A [id number] GILL DELUNA PATIENT UNICARE PREFERRED PROVIDER ORGANIZAT ION (PPO) [place] RE STATE INDE* * Mar 11, 2015 [id number] [facility] (WNR) MEDICARE ADVANTAGE [facility] (WNR) Mar 11, 2021 [id number] GILL DELUNA PATIENT WELLCARE [facility] (WNR) MEDICARE ADVANTAGE [facility] (WNR) Sep 11, 2021 [id number] [phone] GILL DELUNA PATIENT Selected Encounter This section includes the information on record at [place] for the Encounter. Date/Time Encounter Type Encounter Description Reason Pro vider Source Sep 26, 2023 12:34 PM Outpatient Encounter TELEPHONE PRIMARY CARE IHE Encounter Template Text not used by [place] Plan of Treatment: Future Appointments (+ 6 months) and Future Tests (+/- 45 days) The Plan of Treatment section includes future care activities for the patient from all [place] treatmentfacilities. This section includes future appointments and future orders which are active, pending or scheduled. Future Appointments This section includes appointments that were scheduled to occur 6 months from the date of the Encounter, up to a maximum of 20 appointments. The data comes from all [place] treatment facilities. Appointment Date/Time Appointment Type Appointme nt Facility Name Oct 02, 2023 10:45 AM AMBULATORY - MEDICINE [place] [place] [facility] Oct 23, 2023 11:00 AM AMBULATORY - PSYCHIATRY [place] [facility] [facility] Oct 23, 2023 11:01 AM AMBULATORY - PSYCHIATRY [place] [facility] [place] [facility] Oct 27, 2023 08:00 AM AMBULATORY - MEDICINE [place] [facility] [place] [facility] Oct 27, 2023 11:00 AM [facility] Oct 30, 2023 06:00 PM AMBULATORY - MEDICINE [place] [facility] [place] [facility] Nov 07, 2023 10:00 AM AMBULATORY - MEDICINE [place] [facility] [place] [facility] Nov 10, 2023 01:15 PM AMBULATORY - MEDICINE [place] [facility] [place] [facility] Nov 13, 2023 12:00 PM AMBULATORY - MEDICINE [place] [facility] [place] [facility] Nov 20, 2023 11:00 AM AMBULATORY - MEDICINE [place] [facility] [place] [facility] Nov 27, 2023 11:00 AM AMBULATORY - MEDICINE [place] [facility] [place] [facility] Nov 28, 2023 11:00 AM AMBULATORY - MEDICINE [place] [facility] [place] [facility] Dec 04, 2023 01:00 PM AMBULATORY - NONE [place] [facility] [place] [facility] Dec 11, 2023 11:00 AM AMBULATORY - MEDICINE [place] [facility] [place] [facility] Dec 12, 2023 09:00 AM AMBULATORY - MEDICINE [place] [facility] [place] [facility] January 15, 2024 01:40 PM AMBULATORY - MEDICINE [place] [facility] [place] [facility] January 22, 2024 08:30 AM [facility] Mar 01, 2024 10:00 AM AMBULATORY - MEDICINE [place] [facility] Social History: Smoking Status (Most current) and Tobacco Use (All prior to encounter date) This section includes the most current, and the historical, smoking and tobacco- related health factors from the [place] facility where the Encounter took place. Current Smoking Status This section includes the most current smoking, or tobacco-related health factor, from the [place] facility where the Encounter took place. Date/Time Current Smoking Status Comment Nadine jose Dec 12, 2022 03:10 PM VA-TOBACCO NEVER USED [place] [facility] Encounter Notes: All associated encounter notes This section contains the clinical notes associated to the Encounter. Date/Time Encounter Note(s) Provider Source Sep 26, 2023 12:34 PM CARE COORDINATION HOME TELEHEALTH NOTE: LOCAL TITLE: HT NOTE STANDARD TITLE: CARE COORDINATION HOME TELEHEALTH NOTE DATE OF NOTE: SEP 26, 2023@12:34 ENTRY DATE: SEP 26, 2023@12:34:49 AUTHOR: ALCIRA LAYNE COSIGNER: URGENCY: STATUS: COMPLETED HT NOTE Has ADDENDA called (identified by full name and date of ) to inform this proposal writer he has received new HT equipment. Assisted with setting up HT equipment. Peripherals paired via Bluetooth to Commander Flex, positive signal received. [place] declined to complete full health check at this time (did not assess weight or blood pressure) and stated he will assess later. is aware of how to return old HT equipment using Retrieval Kit. [place] requested information about COVID vaccine, inquired if he is due for another one. Teams message to PACT FEDERICO Boggs who will have [facility] reach out with information on clinic schedule or schedule appointment. denied any further questions or concerns at this time. Educated [place] to stay indoors due to cold inclement weather, stay warm, wear layers, use blankets, stay hydrated with water, etc. [place] expressed appreciation for care provided. Length of call: 24 minutes /simone/ KAVITHA Albert, RN [facility]-Home Telehealth Surg Physician Asst Signed: 09/26/2023 12:46 Receipt Acknowledged By: 09/26/2023 16:25 /es/ ESTHELA BOGGS RN REGISTERED NURSE 09/26/2023 13:15 /simone/ LORETA DAMICO 09/26/2023 ADDENDUM STATUS: COMPLETED Broadcast Traffic Coordinator spoke wiht to make an appointment for covid vaccine. Broadcast Traffic Coordinator informed we do the covid vaccines on Monday afternoons from 1-2. [place] will call back to make an appointment. /simone/ LORETA DAMICO Signed: 09/26/2023 13:17 ALCIRA LAYNE [facility]
--- OUTSIDE RECORDS SUMMARY | 2024-08-21 23:29 | XMS_ITS | Encounter Summary ---
Author Name [facility] Organization [facility] Address [address] [place] [address] Care Team Providers Care Cuff Slitter Name Role Phone MARIIA BROUSSARD Primary Care [...] Patient's Relationship to Policy [employer] ([id number]) PRESCRIPT ION [facility] Mar 11, 2018 [id number] [phone] MADAI DELUNA OTHER RELATIONSHIP [facility] PREFERRED PROVIDER ORGANIZAT ION (PPO) Jun 11, 2011 [id number] [phone] MADAI DELUNA PATIENT [facility] (WNR) MEDICARE ADVANTAGE [facility] (WNR) Sep 11, 2022 [id number] [phone] GILL DELUNA PATIENT MEDICARE (WNR) MEDICARE (M) PART A January 10, 2012 PART A [id number] [phone] GILL DELUNA PATIENT MEDICARE (WNR) MEDICARE (M) PART B January 10, 2012 PART B [id number] [phone] GILL DELUNA PATIENT MEDICARE (WNR) MEDICARE (M) PART A January 10, 2012 PART A [id number] GILL DELUNA PATIENT UNICARE PREFERRED PROVIDER ORGANIZAT ION (PPO) [place] RE STATE INDE* * Mar 11, 2015 [id number] MADAI DELUNA SPOUSE [place] (WNR) MEDICARE ADVANTAGE [facility] (WNR) Mar 11, 2021 [id number] GILL DELUNA PATIENT [facility] (WNR) MEDICARE ADVANTAGE [facility] (WNR) Sep 11, 2021 [id number] [phone] GILL DELUNA PATIENT Selected Encounter This section includes the information on record at [place] for the Encounter. Date/Time Encounter Type Encounter Description Reason Provider Source Oct 10, 2023 03:27 PM HC PRO PHONE CALL 5-10 MIN TELEPHONE/MEDICIN E ICD-10-CM I11.9 Hypertensive heart disease without heart failure RAAD WILD [facility] Encounter Template Text not used by [place] Assessments - Encounter Diagnoses This section includes the primary and secondary diagnoses documented for the Encounter. Date/Time Primary/Secondary Diagnosis Diagnosis Name Provider Source Oct 10, 2023 03:27 PM PRIMARY Hypertensive heart disease without heart failure [facility] Oct 10, 2023 03:27 PM SECONDARY Type 2 diabetes mellitus without complications RAAD WILD [facility] Plan of Treatment: Future Appointments (+ [...] 23, 2023 11:00 AM AMBULATORY - PSYCHIATRY [facility] Oct 23, 2023 11:01 AM AMBULATORY PSYCHIATRY [facility] Oct 27, 2023 08:00 AM AM[facility]ULATORY [facility]IC[facility] [place] [facility] Oct 27, 2023 11:00 AM AMBULATORY - MEDICINE [facility] Oct 30, 2023 06:00 PM AMBULATORY - MEDICINE [facility] [place] [facility] Nov 07, 2023 10:00 AM AMBULATORY - MEDICINE [facility] [place] [facility] Nov 10, 2023 01:15 PM AMBULATORY - MEDICINE [facility] [place] [facility] Nov 13, 2023 12:00 PM AMBULATORY - MEDICINE [facility] [place] [facility] Nov 20, 2023 11:00 AM AMBULATORY - MEDICINE [facility] [place] [facility] Nov 27, 2023 11:00 AM AMBULATORY - MEDICINE [facility] [place] [facility] Nov 28, 2023 11:00 AM AMBULATORY - MEDICINE [facility] [place] [facility] Dec 04, 2023 01:00 PM AMBULATORY - NONE [facility] [place] [facility] Dec 11, 2023 11:00 AM AMBULATORY - MEDICINE [facility] [place] [facility] Dec 12, 2023 09:00 AM AMBULATORY - MEDICINE [facility] [place] [facility] January 15, 2024 01:40 PM AMBULATORY - MEDICINE [place] [facility] [place] [facility] January 22, 2024 08:30 AM AMBULATORY - MEDICINE [facility] Mar 01, 2024 10:00 AM AMBULATORY - MEDICINE [place] [facility] [place] [facility] Lab Results: +/- 30 days of the [...] Range Comment Nov 02, 2023 12:00 AM WILLOWS OCCULT BLOOD FIT X1 SCREEN(IN-HOUSE) Sp ecimen Type: FECES No comment entered. Ordering Provider: MARIIA CABRAL Report Released Date/Time: Oct 27, 2023 12:56 PM Reporting [facility] [address] [id number] Performing Lab: [facility] [address] [id number] OCCULT BLOOD (FIT)#1 OF 1 Negative NEG [...] 12, 2022 03:10 PM VA-TOBACCO NEVER USED [facility] Encounter Notes: All associated encounter notes This section contains the clinical notes associated to the Encounter. Date/Time Encounter Note(s) Provider Source Oct 11, 2023 10:02 AM ADDENDUM: LOCAL TITLE: Addendum STANDARD TITLE: ADDENDUM DATE OF NOTE: OCT 11, 2023@10:02:21 ENTRY DATE: OCT 11, 2023@10:02:21 AUTHOR: ZEINA WILD EXP COSIGNER: URGENCY: STATUS: COMPLETED GILL DELUNA (-[id number]) Vital Sign for: 09/12/2023 - 10/11/2023 (All [...] 10/08/2023 22:47 176.4 22:45 166/81 22:45 46 Source: [employer]; [employer] Omn[employer]isor Pro System Called to check in due to continued elevations in BP. Blood Pressure last night 175/80, HR 81. Also reviewed above recommendations from PCP. Everton states that he is very diligent about taking his BP meds every day: He takes: Clonidine 0.1 mg daily in the morning Valsartan 320 mg daily in the morning Chlorthalidone 25 mg daily in the evening Instructed to take Valsartan in the evening and Chlorthalidone in the morning per providers recommendations and to help decrease nocturia. PCP: Clonidine has and needs to be renewed. Everton reports just waking up. He feels nervous and jerky, and just out of sorts. Instructed Everton to check his BS and his vital signs. checked his BS and it was 242. just woke up and wants to check his vital signs after getting up. Encouraged Everton to check his VS this morning after resting for 10-15 minutes. Everton agreed to check this morning and transmit to Home Telehealth RN. Notifying PACT Team. /simone/ ZEINA WILD REGISTERED NURSE Signed: 10/11/2023 10:11 Receipt Acknowledged By: 10/14/2023 10:52 /es/ MARIIA BROUSSARD MD PHYSICIAN --- Original Document --- 10/10/23 HT INTERVENTION NOTE: is actively enrolled in the Home Telehealth program. Review of data shows the following out of range responses: GILL DELUNA (-[id number]) Vital Sign for: 09/11/2023 - 10/10/2023 (All times are EST; All weights are lbs) Primary DMP: VHA-HTN Comorbid(s): Summary Weight Sys BP Barnett BP HR Pain High 178.4 185 96 101 Low 171.2 118 74 44 Average 175.4 148 83 76 Date Time Wt Time Sys Barnett Time HR Time Pain 10/09/2023 21:23 172.8 21:22 164/80 21:22 99 [...] 09/11/2023 23:06 175.2 23:06 144/94 23:06 83 Source: [employer]; [employer] System Assessment: Maryellen identified by full name and . Called to check in due to elevated BP for the last 3 readings above average, 160/80s. Everton states he has noted the increase and is not sure why his BP has been elevated. He denies any symptoms of elevated BP at this time. Maryellen reports taking the following medication as prescribed: Valsartan 320 mg daily Chlorthalidone 25 mg daily Of note: Refilled Maryellen's Valsartan for a 90 day supply, last filled 06/19/2023. Maryellen denies any changes in his diet, exercise or stress levels. He does not check his food labels for salt content and states that he could start doing this to better manage his BP. CLINICAL PHARMACY: He has also noticed an increase in his blood sugar as well. His BS is almost always in the 200s, even when he first wakes up. He does have a Ugo Sensor and believes it is giving him false readings. He reports BS reading of 260 on Ugo Sensor but then a finger stick will have a BS reading of 220. Discussed delay in readings between sensor and fingerstick, but does not think there should be such a large difference in the two readings. The above example is a random fingerstick and not right after eating. He also reports false low readings in the middle of the night recently of 38 and 42. He would like to schedule a visit to discuss these readings with his Clinical Pharmacist, Deisy Armstrong. Maryellen was last seen by Dr. Armstrong on 10/02. Notifying Provider of request. Maryellen reports monitoring his carb intake. He has cut down on pasta and pizza. He has been craving milk a lot but has switched to a milk substitute with 1/2 the carb count and 1% fat content. He has been drinking more water. His typical diet includes cereal, hamlet bread, fruits. He acknowledges that he could eat more fresh vegetables. Maryellen is following up with Urology on 11/10/23. He had a bladder scan on 08/25/23 that shows urinary retention of 352 ml. He had no symptoms at that time. Everton continues to deny any lower abdominal discomfort, flank pain or fever. He is concerned about elevated WBCs in his urine. He had mentioned RBCs but that is not listed in his UA. He will address these concerns with his Urologist on 11/10/23. RESPIRATORY: Maryellen would like a new face mask for his BiPAP machine. He believes his current one is due to be replaced and he has been getting nose bleeds. Intervention(s)/Plan: Reviewed on the importance of CHO counting. CHO counting helps keep good control of blood sugar on a daily basis. Reviewed symptoms of hyperglycemia (blurry vision, excess thirst, dry mouth, frequent urination, weakness and headache) and hypoglycemia (sweating, pallor, tiredness, irritability, lightheadedness, and confusion) and denied experiencing these symptoms at this time. Everton expressed understanding for when to call their provider or go to the ER for concerning symptoms. Reviewed BP medications and instructed to continue to take all medications as ordered. Educated Everton on effects of sodium on blood pressure and importance of maintaining low sodium diet. Encouraged Everton choose low sodium food and read food labels. Reviewed signs/symptoms of hypertension and where/where to seek help (call PACT vs. ) verbalized understanding of education provided. TYPE OF ENCOUNTER: Telephone Length of call: 5-10 minutes /simone/ ZEINA WILD REGISTERED NURSE Signed: 10/10/2023 16:19 Receipt Acknowledged By: * AWAITING SIGNATURE * LUX ARMSTRONG [employer] 10/11/2023 00:21 /simone/ MARIIA BROUSSARD MD PHYSICIAN 10/11/2023 15:11 /simone/ THIERNO LORA, MARKETING SALES CONSULTANT RESPIRATORY THERAPIST 10/10/2023 ADDENDUM STATUS: COMPLETED Could you please confirm with patient that he takes both chlorthalidone and valsartan as prescribed. Please instruct him to take chlorthalidone in the morning and valsartan at night. If blood pressure persistently elevated will add amlodipine. Thank you /essence BROUSSARD MD PHYSICIAN Signed: 10/10/2023 23:57 Receipt Acknowledged By: 10/11/2023 10:01 /essence ALMARAZ LPN LPN 10/11/2023 ADDENDUM STATUS: COMPLETED Everton contacted and message delivered. Medications reviewed and reports he is taking as prescribed, reviewed when to take medications, he was able to verbalize understanding. /essence ALMARAZ LPN LPN Signed: 10/11/2023 10:03 ZEINA WILD [facility] [place] [facility] Oct 10, 2023 11:56 PM ADDENDUM: LOCAL TITLE: Addendum STANDARD TITLE: ADDENDUM DATE OF NOTE: OCT 10, 2023@23:56:48 ENTRY DATE: OCT 10, 2023@23:56:49 AUTHOR: Katerin BROUSSARD COSIGNER: URGENCY: STATUS: COMPLETED Could you please confirm with patient that he takes both chlorthalidone and valsartan as prescribed. Please instruct him to take chlorthalidone in the morning and valsartan at night. If blood pressure persistently elevated will add amlodipine. Thank you /essence BROUSSARD MD PHYSICIAN Signed: 10/10/2023 23:57 Receipt Acknowledged By: 10/11/2023 10:01 /essence ALMARAZ LPN LPN --- Original Document --- 10/10/23 HT INTERVENTION NOTE: Everton is actively enrolled in the Home Telehealth program. Review of data shows the following out of range responses: IOANA DELUNAAGUSTO MELLO (-[id number]) Vital Sign for: 09/11/2023 - 10/10/2023 (All times are EST; All weights are lbs) Primary DMP: VHA-HTN Comorbid(s): Summary Weight Sys BP Barnett BP HR Pain High 178.4 185 96 101 Low 171.2 118 74 44 Average 175.4 148 83 76 Date Time Wt Time Sys Barnett Time HR Time Pain 10/09/2023 21:23 172.8 21:22 164/80 21:22 99 [...] 09/11/2023 23:06 175.2 23:06 144/94 23:06 83 Source: [employer]; [employer] System Assessment: Maryellen identified by full name and . Called to check in due to elevated BP for the last 3 readings above average, 160/80s. Everton states he has noted the increase and is not sure why his BP has been elevated. He denies any symptoms of elevated BP at this time. Maryellen reports taking the following medication as prescribed: Valsartan 320 mg daily Chlorthalidone 25 mg daily Of note: Refilled Maryellen's Valsartan for a 90 day supply, last filled 06/19/2023. Maryellen denies any changes in his diet, exercise or stress levels. He does not check his food labels for salt content and states that he could start doing this to better manage his BP. CLINICAL PHARMACY: He has also noticed an increase in his blood sugar as well. His BS is almost always in the 200s, even when he first wakes up. He does have a Ugo Sensor and believes it is giving him false readings. He reports BS reading of 260 on Ugo Sensor but then a finger stick will have a BS reading of 220. Discussed delay in readings between sensor and fingerstick, but Maryellen does not think there should be such a large difference in the two readings. The above example is a random fingerstick and not right after eating. He also reports false low readings in the middle of the night recently of 38 and 42. He would like to schedule a visit to discuss these readings with his Clinical Pharmacist, Deisy Armstrong. Maryellen was last seen by Dr. Armstrong on 10/02. Notifying Provider of request. Maryellen reports monitoring his carb intake. He has cut down on pasta and pizza. He has been craving milk a lot but has switched to a milk substitute with 1/2 the carb count and 1% fat content. He has been drinking more water. His typical diet includes cereal, hamlet bread, fruits. He acknowledges that he could eat more fresh vegetables. Maryellen is following up with Urology on 11/10/23. He had a bladder scan on 08/25/23 that shows urinary retention of 352 ml. He had no symptoms at that time. Maryellen continues to deny any lower abdominal discomfort, flank pain or fever. He is concerned about elevated WBCs in his urine. He had mentioned RBCs but that is not listed in his UA. He will address these concerns with his Urologist on 11/10/23. RESPIRATORY: Maryellen would like a new face mask for his BiPAP machine. He believes his current one is due to be replaced and he has been getting nose bleeds. Intervention(s)/Plan: Reviewed on the importance of CHO counting. CHO counting helps keep good control of blood sugar on a daily basis. Reviewed symptoms of hyperglycemia (blurry vision, excess thirst, dry mouth, frequent urination, weakness and headache) and hypoglycemia (sweating, pallor, tiredness, irritability, lightheadedness, and confusion) and denied experiencing these symptoms at this time. Everton expressed understanding for when to call their provider or go to the ER for concerning symptoms. Reviewed BP medications and instructed to continue to take all medications as ordered. Educated Everton on effects of sodium on blood pressure and importance of maintaining low sodium diet. Encouraged Everton choose low sodium food and read food labels. Reviewed signs/symptoms of hypertension and where/where to seek help (call PACT vs. 9-1-1) verbalized understanding of education provided. TYPE OF ENCOUNTER: Telephone Length of call: 5-10 minutes /simone/ ZEINA WILD REGISTERED NURSE Signed: 10/10/2023 16:19 Receipt Acknowledged By: * AWAITING SIGNATURE * ARMSTRONGLUX ZIMMERMAN [employer] 10/11/2023 00:21 /es/ MARIIA BROUSSARD MD PHYSICIAN * AWAITING SIGNATURE * THIERNO LORA 10/11/2023 ADDENDUM STATUS: UNSIGNED You may not VIEW this UNSIGNED Addendum. MARIIA BROUSSARD [facility] [place] [facility] Oct 10, 2023 03:29 PM CARE COORDINATION HOME TELEHEALTH FOLLOW-UP NOTE: LOCAL TITLE: HT INTERVENTION NOTE STANDARD TITLE: CARE COORDINATION HOME TELEHEALTH FOLLOW-UP NOTE DATE OF NOTE: OCT 10, 2023@15:29 ENTRY DATE: OCT 10, 2023@15:29:32 AUTHOR: ZEINA WILD AL EXP COSIGNER: URGENCY: STATUS: COMPLETED HT INTERVENTION NOTE Has ADDENDA is actively enrolled in the Home Telehealth program. Review of data shows the following out of range responses: GILL DELUNA (-[id number]) Vital Sign for: 09/11/2023 - 10/10/2023 (All times are EST; All weights are lbs) Primary DMP: VHA-HTN Comorbid(s): Summary Weight Sys BP Barnett BP HR Pain High 178.4 185 96 101 Low 171.2 118 74 44 Average 175.4 148 83 76 Date Time Wt Time Sys Barnett Time HR Time Pain 10/09/2023 21:23 172.8 21:22 164/80 21:22 99 [...] 09/11/2023 23:06 175.2 23:06 144/94 23:06 83 Source: [employer]; [employer] Pro System Assessment: Everton identified by full name and . Called to check in due to elevated BP for the last 3 readings above average, 160/80s. states he has noted the increase and is not sure why his BP has been elevated. He denies any symptoms of elevated BP at this time. Maryellen reports taking the following medication as prescribed: Valsartan 320 mg daily Chlorthalidone 25 mg daily Of note: Refilled Maryellen's Valsartan for a 90 day supply, last filled 06/19/2023. Maryellen denies any changes in his diet, exercise or stress levels. He does not check his food labels for salt content and states that he could start doing this to better manage his BP. CLINICAL PHARMACY: He has also noticed an increase in his blood sugar as well. His BS is almost always in the 200s, even when he first wakes up. He does have a Ugo Sensor and believes it is giving him false readings. He reports BS reading of 260 on Ugo Sensor but then a finger stick will have a BS reading of 220. Discussed delay in readings between sensor and fingerstick, but Maryellen does not think there should be such a large difference in the two readings. The above example is a random fingerstick and not right after eating. He also reports false low readings in the middle of the night recently of 38 and 42. He would like to schedule a visit to discuss these readings with his Clinical Pharmacist, Deisy Armstrong. Maryellen was last seen by Dr. Armstrong on 10/02. Notifying Provider of request. Maryellen reports monitoring his carb intake. He has cut down on pasta and pizza. He has been craving milk a lot but has switched to a milk substitute with 1/2 the carb count and 1% fat content. He has been drinking more water. His typical diet includes cereal, hamlet bread, fruits. He acknowledges that he could eat more fresh vegetables. Maryellen is following up with Urology on 11/10/23. He had a bladder scan on 08/25/23 that shows urinary retention of 352 ml. He had no symptoms at that time. Maryellen continues to deny any lower abdominal discomfort, flank pain or fever. He is concerned about elevated WBCs in his urine. He had mentioned RBCs but that is not listed in his UA. He will address these concerns with his Urologist on 11/10/23. RESPIRATORY: Maryellen would like a new face mask for his BiPAP machine. He believes his current one is due to be replaced and he has been getting nose bleeds. Intervention(s)/Plan: Reviewed Everton on the importance of CHO counting. CHO counting helps keep good control of blood sugar on a daily basis. Reviewed symptoms of hyperglycemia (blurry vision, excess thirst, dry mouth, frequent urination, weakness and headache) and hypoglycemia (sweating, pallor, tiredness, irritability, lightheadedness, and confusion) and denied experiencing these symptoms at this time. Everton expressed understanding for when to call their provider or go to the ER for concerning symptoms. Reviewed BP medications and instructed to continue to take all medications as ordered. Educated Everton on effects of sodium on blood pressure and importance of maintaining low sodium diet. Encouraged Everton choose low sodium food and read food labels. Reviewed signs/symptoms of hypertension and where/where to seek help (call PACT vs. ) Everton verbalized understanding of education provided. TYPE OF ENCOUNTER: Telephone Length of call: 5-10 minutes /simone/ ZEINA WILD REGISTERED NURSE Signed: 10/10/2023 16:19 Receipt Acknowledged By: 10/17/2023 08:49 /simone/ ULX ARMSTRONG CLINICAL DOWEL PIN WORKER 10/11/2023 00:21 /simone/ MARIIA BROUSSARD MD PHYSICIAN 10/11/2023 15:11 /simone/ THIERNO LORA CRT RESPIRATORY THERAPIST 10/10/2023 ADDENDUM STATUS: COMPLETED Could you please confirm with patient that he takes both chlorthalidone and valsartan as prescribed. Please instruct him to take chlorthalidone in the morning and valsartan at night. If blood pressure persistently elevated will add amlodipine. Thank you /simone/ MARIIA BROUSSARD MD PHYSICIAN Signed: 10/10/2023 23:57 Receipt Acknowledged By: 10/11/2023 10:01 /simone/ ABDI ALMARAZ LPN LPN 10/11/2023 ADDENDUM STATUS: COMPLETED Everton contacted and message delivered. Medications reviewed and Everton reports he is taking as prescribed, reviewed when to take medications, he was able to verbalize understanding. /simone/ ABDI ALMARAZ LPN LPN Signed: 10/11/2023 10:03 10/11/2023 ADDENDUM STATUS: COMPLETED GILL DELUNA (-[id number]) Vital Sign for: 09/12/2023 - 10/11/2023 (All [...] 10/08/2023 22:47 176.4 22:45 166/81 22:45 46 Source: [employer]; [employer] Pro System Called Everton to check in due to continued elevations in BP. Blood Pressure last night 175/80, HR 81. Also reviewed above recommendations from PCP. states that he is very diligent about taking his BP meds every day: He takes: Clonidine 0.1 mg daily in the morning Valsartan 320 mg daily in the morning Chlorthalidone 25 mg daily in the evening Instructed Everton to take Valsartan in the evening and Chlorthalidone in the morning per providers recommendations and to help decrease nocturia. PCP: Clonidine has and needs to be renewed. reports just waking up. He feels nervous and jerky, and just out of sorts. Instructed Everton to check his BS and his vital signs. Everton checked his BS and it was 242. Everton just woke up and wants to check his vital signs after getting up. Encouraged Everton to check his VS this morning after resting for 10-15 minutes. Everton agreed to check this morning and transmit to Home Telehealth RN. Notifying PACT Team. /simone/ ZEINA WILD REGISTERED NURSE Signed: 10/11/2023 10:11 Receipt Acknowledged By: 10/14/2023 10:52 /simone/ MARIIA BROUSSARD MD PHYSICIAN 10/17/2023 ADDENDUM STATUS: COMPLETED Pt is scheduled for 10/27/23 for a visit w/ sarah /simone/ LUX ARMSTRONG CLINICAL DOWEL PIN WORKER Signed: 10/17/2023 08:50 ZEINA WILD [facility]
--- OUTSIDE RECORDS SUMMARY | 2024-08-21 23:29 | XMS_ITS | Encounter Summary ---
Author Name [facility] [place] Organization [facility] Address [address] [place] [address] Care Team Providers Care Beam Saw Operator Name Role Phone MARIIA BROUSSARD Primary [...] Patient's Relationship to Policy [employer] ([id number]) PRESCRIPT ION [facility] Mar 11, 2018 [id number] [phone] MADAI DELUNA OTHER RELATIONSHIP [facility] PREFERRED PROVIDER ORGANIZAT ION (PPO) Jun 11, 2011 [id number] [phone] MADAI DELUNA PATIENT [employer] MCR (WNR) MEDICARE ADVANTAGE MCR (WNR) Sep 11, 2022 [id number] [phone] [place] PATIENT MEDICARE (WNR) MEDICARE (M) PART A January 10, 2012 PART A [id number] [place] PATIENT MEDICARE (WNR) MEDICARE (M) PART B January 10, 2012 PART B [id number] [place] PATIENT MEDICARE (WNR) MEDICARE (M) PART A January 10, 2012 PART A [id number] GILL DELUNA PATIENT [facility] PREFERRED PROVIDER ORGANIZAT ION (PPO) CRISTHIAN LEAH GU* * Mar 11, 2015 [id number] MADAI DELUNA [facility] (WNR) MEDICARE ADVANTAGE [facility] (WNR) Mar 11, 2021 [id number] [phone] GILL DELUNA PATIENT [facility] (WNR) MEDICARE ADVANTAGE [facility] (WNR) Sep 11, 2021 [id number] [phone] GILL DELUNA PATIENT Selected Encounter This section includes the information on record at [place] for the Encounter. Date/Time Encounter Type Encounter Description Reason Provider Source Oct 27, 2023 08:00 AM MTMS BY BRUNO RONDON 15 MIN CLINICAL PHARMACY ICD-10-CM E11.9 Type 2 diabetes mellitus without complications DARRICK ARMSTRONG [facility] Encounter Template Text not used by [place] Assessments - Encounter Diagnoses This section includes the primary and secondary diagnoses documented for the Encounter. Date/Time Primary/Secondary Diagnosis Diagnosis Name Provider Source Oct 31, 2023 09:41 AM PRIMARY Type 2 diabetes mellitus without complications BRANDON ARMSTRONG [facility]BB[facility] Plan of Treatment: Future Appointments (+ 6 [...] 30, 2023 06:00 PM AMBULATORY - MEDICINE [place] [facility] [place] [facility] Nov 07, 2023 10:00 AM AMBULATORY - MEDICINE [place] [facility] [place] [facility] Nov 10, 2023 01:15 PM AMBULATORY - MEDICINE [place] [facility] [place] [facility] Nov 13, 2023 12:00 PM AMBULATORY - MEDICINE [place] [facility] [place] [facility] Nov 20, 2023 11:00 AM AMBULATORY - MEDICINE [place] [facility] [place] [facility] Nov 27, 2023 11:00 AM AMBULATORY - MEDICINE [place] [facility] [place] [facility] Nov 28, 2023 11:00 AM AMBULATORY - MEDICINE [place] [facility] [place] [facility] Dec 04, 2023 01:00 PM AMBULATORY - NONE [place] [facility] [place] [facility] Dec 11, 2023 11:00 AM AMBULATORY - MEDICINE [place] [facility] [place] [facility] Dec 12, 2023 09:00 AM AMBULATORY - MEDICINE [place] [facility] [place] [facility] January 15, 2024 01:40 PM AMBULATORY - MEDICINE [place] [facility] [place] [facility] January 22, 2024 08:30 AM AMBULATORY - MEDICINE [facility] Mar 01, 2024 10:00 AM AMBULATORY - MEDICINE [place] [facility] [place] [facility] Lab Results: +/- 30 days of the [...] Range Comment Nov 02, 2023 12:00 AM WEBBER OCCULT BLOOD FIT X1 SCREEN(IN-HOUSE) Sp ecimen Type: FECES No comment entered. Ordering Provider: MARIIA CABRAL Report Released Date/Time: Oct 27, 2023 12:56 PM [facility] [place] [facility] [address] [id number] Performing Lab[facility] [address] [facility] [phone] OCCULT BLOOD (FIT)#1 OF 1 Negative NEG Vital Signs: All taken on the encounter date This section contains inpatient and outpatient Vital Signs collected on the date of the Encounter. Date/Time Temperature Pulse Blood Pressure Respiratory Rate SP02 Pain Height Weight Body Mass Index Source Oct 27, 2023 11:36 AM 58 [place] Oct 27, 2023 11:21 AM 97.6 132/69 98 176.6 29 [place] Social History: Smoking Status (Most current) [...] place. Date/Time Current Smoking Status Comment Nadine rothy Jul 06, 2021 09:30 AM VA-TOBACCO NEVER USED WEBBER Tobacco Use History This section includes a history of the smoking, or tobacco-related health factors, that were collected on or before the date of the Encounter. The data comes from the [place] facility where the Encounter took place. Date/Time Smoking Status/Tobacco Use Comment F acility Apr 30, 2020 01:00 PM VA-TOBACCO FORMER USER WEBBER Apr 30, 2020 01:00 PM VA-TOBACCO QUIT 15 YRS OR MORE WEBBER January 09, 2019 02:16 PM VA-TOBACCO FORMER USER WEBBER January 09, 2019 02:16 PM VA-TOBACCO QUIT 15 YRS OR MORE WEBBER Feb 13, 2018 11:05 AM QUIT TOBACCO USE > 7 YEARS AGO WEBBER Feb 28, 2017 01:42 PM LIFETIME NON-TOBACCO USER quit 1975 WEBBER Nov 17, 2015 09:53 AM QUIT TOBACCO USE > 7 YEARS AGO WEBBER February 08, 2002 03:04 PM QUIT TOBACCO USE > 7 YEARS AGO Patient states he smoked from age [age] and quit. WEBBER Aug 10, 2001 03:42 PM NON-TOBACCO USER Stopped tobacco 35 years ago WEBBER Encounter Notes: All associated encounter notes This section contains the clinical notes associated to the Encounter. Date/Time Encounter Note(s) Provider Source Oct 27, 2023 08:08 AM PHARMACY OUTPATIEN T NOTE: LOCAL TITLE: PHARMACY CLINIC NOTE STANDARD TITLE: PHARMACY OUTPATIENT NOTE DATE OF NOTE: OCT 27, 2023@08:08 ENTRY DATE: OCT 27, 2023@08:09:05 AUTHOR: LUX ARMSTRONG COSIGNER: URGENCY: STATUS: COMPLETED PHARMACY CLINIC NOTE Has ADDENDA Patient Name: GILL DELUNA was seen via telephone for follow-up for diabetes management treatment. : January Age: 78 Sex: MALE Race: WHITE Subjective: Pt is here for training on dexcom G7 Per prev: Pt was followed up over [...] He is not however looking forward to [facility] holidays. He continues to work- has Mondays off. Per prev: Pt was contacted for a f/up. Last 3 days sensor readings much improved without any false readings. PT is using ugo 3 now. He had appt w/ PCP yesterday. He informed the public relations writer he decided to stopp empagliflozin 3 [...] the reader. He has contacted the provided [employer] [place] dedicated line and received several replacement sensors [...] estate. [facility] and is [facility] that. He also [...] as instructed on 01/23/23. 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 He is glad he is on this equipment. The public relations writer spent close to 20 minutes trying to have pt accept the invitation without success. Both public relations writer and pt agreed for him to [...] 2. Benign Prostatic Hypertrophy with Outflow Obstruction ([facility] [id number]) 3. Erectile Dysfunction ([facility] [id number]) 4. Depression ([facility] [id number]) 5. Actinic keratosis 6. Basal cell carcinoma of skin 7. Vitamin D Deficiency ([facility] [id number]) 8. Contact dermatitis 9. Space-occupying lesion of brain 10. Second degree atrioventricular block 11. Cancer screening follow up 12. Hyperglycemia due to type 2 diabetes mellitus 13. PVD-peripheral vascular disease 14. Hyperlipidemia 15. Elevated PSA 16. Epistaxis * 17. Sleep apnea (SNOMED CT [id number]) 18. Superficial basal cell carcinoma 19. Gastroesophageal reflux disease (SNOMED CT [id number]) 20. Anxiety 21. Diabetes mellitus (SNOMED CT [id number]) 22. Essential hypertension (SNOMED CT 87104204) 23. Body mass index 25-29 - overweight [...] not bring the meter to the visit NUTRITION: Patient eats on avg. 2-3 x [...] it up at work in microwave D: somali fries and chicken nuggetts; soup - canned, [...] BG under control - Lose weight Assessment/Plan: Pt was trained on dexcom G7 INSTRUCTIONS/CONTENT REVIEWED DURING THIS VISIT: RISKS AND BENEFITS SYTEM OVERVIEW/COMPONENTS MARCIE SET UP INSTALL MARCIE HOW TO USE VIEW HOME SCREEN SMART DEVICE SETTINGS BEAUTY THERAPIST SET UP BEAUTY THERAPIST SET UP HOW/WHEN TO TO USE VIEW HOME SCREEN BEAUTY THERAPIST DEVICE SETTINGS MARCIE AND BEAUTY THERAPIST TREND ARROWS MARCIE AND BEAUTY THERAPIST TREND GRAPHS END SENSOR SESSION REMOVE SENSOR ENDING SENSOR SESSION EARLY ALARM, ALERTS, AND ADAVANCED ALERTS URGENT LOW GLUCOSE ALARM CHANGE LOW AND HIGH ALERTS SET THESE AT 80 AND 300 ADVANCED ALERTS USING DEXCOM G6 FOR TREATMENT DECISIONS THE BASICS BEYOND THE BASICS TROUBLESHOOTING SENSOR GLUCOSE READINGS TRANSMITTER ERRORS ADHESIVE TRAVEL MRI/CAT SCAN/DIATHERMY-NEED TO REMOVE HOW TO GET HELP DEXCOM TECHNICAL SUPPORT DEXCOM CARE TEAM WEB-BASED EDUCATION ENDOCRINE OFFICE STAFF HANDOUTS GIVEN: Dexcom Dedicated Phone Line For [facility] patients Sensor change guide--step by step instructions Transmitter change guide--step by step instructions LOCATION OF WHERE SENSOR WAS PLACED:back of the arm SENSOR NO:[id number] EMAIL INVITE SENT TO EMAIL FOR DEXCOM [facility] CL[facility]: [id number] @[employer] DIABETES A1c is ABOVE goal of <7% - Medication management Diabetes -c/t Insulin novolog per ICR to 1:7 before breakfast and lunch; and 1:10 at dinner meal malinda benoit meal dose calculator* provided at the previous [...] - Repeat A1c: 11/2022 HTN: [facility] and ASA 81mg/day. Defer to PCP. ASCVD: LDL < 70, not on statin therapy; defer to PCP Microalb: 8.3 mg/G (12/2020); will order w/ next labs History of Preventive Care: Most recent visit to salesperson burial plots: 04/2022 Most recent visit to optometry: 10/2021; Diabetes mellitus without retinopathy or macular edema Clinic's Next Scheduled Follow-up: 11/06/23 telephone No barriers; Patient understands and agrees to current treatment plan. If he has any questions, concerns, or changes in current health status he will call or come [facility] to the [facility]. FUTURE APPOINTMENTS: 10/09/2023 13:30 CWM/SO/CVT/MHC/IND MATE FIRST/PA 10/09/2023 13:31 CWM/SO/CVT/MHC/IND MATE FIRST/AK 11/10/2023 13:15 COM CARE-UROLOGY 01/22/2024 08:30 CWM/SO/PODIATRY/ROSS 05/16/2024 11:30 CWM/NO/DERMATOLOGY C/AM DM type is : T2D Length of Visit: 30 minutes PBM PharmD Pharmacotherapy Rem V12: PHARMACIST INTERVENTIONS: TYPE 2 DIABETES MELLITUS Medication monitoring, no dosage change required, continue to monitor and assess /simone/ LUX ARMSTRONG CLINICAL PUBLICATION DIRECTOR Signed: 10/31/2023 09:45 Receipt Acknowledged By: 11/01/2023 02:21 /simone/ MARIIA BROUSSARD MD PHYSICIAN 11/10/2023 ADDENDUM STATUS: COMPLETED Pt contacted the clinic reporting low BG reactions, particularly in early AM hours. Pt's current regimen: -Insulin novolog per ICR to 1:7 before breakfast and lunch; and 1:10 at dinner meal folow a meal dose calculator* provided at the previous visit ISF of 1:28 for BG >130 mg/dl pre meal -Insulin glargine (Semglee) to 20 units daily hs @10 PM - semaglutide 2mg once weekly (Mondays) Assesment/plan: Advised pt to reduce the insulin glargine to 18 units daily. C/t with other medications at the same dose. f/up overe tele on Monday11/13/23 /simone/ LUX ARMSTRONG CLINICAL PUBLICATION DIRECTOR Signed: 11/13/2023 13:42 LUX ARMSTRONG WEBBER
--- OUTSIDE RECORDS SUMMARY | 2024-08-21 23:29 | XMS_ITS | Encounter Summary ---
Author Name [facility] [place] Organization [place] Address [address] [place] [address] Care Team Providers Care Cable Installer Repairer Name Role Phone MARIIA BROUSSARD Primary Care [...] Patient's Relationship to Policy Man[employer]a EXPRESS SCRIPTS ([id number]) PRESCRIPT ION [facility] Mar 11, 2018 [id number] MADAI DELUNA OTHER RELATIONSHIP [facility] PREFERRED PROVIDER ORGANIZAT ION (PPO) Jun 11, 2011 [id number] [phone] MADAI DELUNA PATIENT HUMANA [facility] (WNR) MEDICARE ADVANTAGE [facility] (WNR) Sep 11, 2022 [id number] [phone] GILL DELUNA PATIENT MEDICARE (WNR) MEDICARE (M) PART A January 10, 2012 PART A [id number] GILL DELUNA PATIENT MEDICARE (WNR) MEDICARE (M) PART B January 10, 2012 PART B [id number] [phone] GILL DELUNA PATIENT MEDICARE (WNR) MEDICARE (M) PART A January 10, 2012 PART A [id number] GILL DELUNA PATIENT UNICARE PREFERRED PROVIDER ORGANIZAT ION (PPO) [place] RE STATE INDE* * Mar 11, 2015 [id number] MADAI DELUNA SPOUSE [facility] (WNR) MEDICARE ADVANTAGE [facility] (WNR) Mar 11, 2021 [id number] GILL DELUNA PATIENT [facility] (WNR) MEDICARE ADVANTAGE [facility] (WNR) Sep 11, 2021 [id number] [phone] GILL DELUNA PATIENT Selected Encounter This section includes the information on record at [place] for the Encounter. Date/Time Encounter Type Encounter Description Reason Provider Source Oct 24, 2023 03:35 PM HC PRO PHONE CALL 11-20 MIN TELEPHONE PRIMARY CARE ICD-10-CM I11.9 Hypertensive heart disease without heart failure ALCIRA LAYNE [place] Encounter Template Text not used by [place] Assessments - Encounter Diagnoses This section includes the primary and secondary diagnoses documented for the Encounter. Date/Time Primary/Secondary Diagnosis Diagnosis Name Provider Source Oct 24, 2023 03:35 PM PRIMARY Hypertensive heart disease without heart failure ALCIRA LAYNE [facility] [place] [facility] Plan of Treatment: Future Appointments [...] 27, 2023 08:00 AM AMBULATORY - MEDICINE [facility] [place] [place] [facility] Oct 27, 2023 11:00 AM AMBULATORY - MEDICINE [facility] Oct 30, 2023 06:00 PM AMBULATORY - MEDICINE [facility] [place] [facility] Nov 07, 2023 10:00 AM AMBULATORY - MEDICINE [facility] [place] [facility] Nov 10, 2023 01:15 PM AMBULATORY - MEDICINE [facility] [place] [facility] Nov 13, 2023 12:00 PM AMBULATORY [facility]ICINE [facility] [place] [facility] Nov 20, 2023 11:00 AM AMBULATORY - MEDICINE [facility] [place] [facility] Nov 27, 2023 11:00 AM AMBULATORY - MEDICINE [facility] [place] [facility] Nov 28, 2023 11:00 AM AMBULATORY - MEDICINE [facility] [place] [facility] Dec 04, 2023 01:00 PM AMBULATORY - NONE [facility] [place] [facility] Dec 11, 2023 11:00 AM AMBULATORY - MEDICINE [facility] [place] [facility] Dec 12, 2023 09:00 AM AMBULATORY - MEDICINE [facility] [place] [facility] January 15, 2024 01:40 PM AMBULATORY - MEDICINE [facility] [place] [facility] January 22, 2024 08:30 AM AMBULATORY - MEDICINE [facility] Mar 01, 2024 10:00 AM AMBULATORY - MEDICINE [facility] [place] [facility] Lab Results: +/- 30 days [...] Range Comment Nov 02, 2023 12:00 AM [place] OCCULT BLOOD FIT X1 SCREEN(IN-HOUSE) Sp ecimen Type: FECES No comment entered. Ordering Provider: MARIIA CABRAL Report Released Date/Time: Oct 27, 2023 12:56 PM Reporting Lab: [facility] [address] [facility] [address] Performing Lab: [facility] WSN [address] [address] OCCULT BLOOD (FIT)#1 OF 1 Negative NEG [...] 12, 2022 03:10 PM VA-TOBACCO NEVER USED [place] [facility] [facility] Encounter Notes: All associated encounter notes This section contains the clinical notes associated to the Encounter. Date/Time Encounter Note(s) Provider Source Oct 25, 2023 07:11 AM CARE COORDINATION HOME TELEHEALTH REPORT: LOCAL TITLE: HT PERIODIC EVALUATION NOTE STANDARD TITLE: CARE COORDINATION HOME TELEHEALTH REPORT DATE OF NOTE: OCT 25, 2023@07:11 ENTRY DATE: OCT 25, 2023@07:11:29 AUTHOR: ALCIRA LAYNE COSIGNER: URGENCY: STATUS: COMPLETED HOME TELEHEALTH (HT) PERIODIC EVALUATION NOTE was identified by full name and date of . Provider: This information is sent for your review and any further recommendations in regards to the HT Plan of Care. Ht (Home Telehealth) 01/26/2021 Ht Enrollment-Start Date 01/26/2021 Ht Clinical Reason For Enrollment HTN, DM 'S CURRENT HT CATEGORY OF CARE: NICLR Home Monitoring technology assigned: In Home Messaging Device (IHMD) Vendor: [employer] Connection via: [employer] Peripheral Device(s): Blood pressure Monitor with pulse Entry: Bluetooth Digital Scale Entry: Bluetooth SUMMARY SINCE LAST REVIEW: Maryellen continues to be an active participant in HT program for hypertension. Average Response Rate July 2023-September 2023: 56.4% He continues to use Ugo 3 Sensor for continuous glucose monitoring, followed by Clinical Pharmacist. Maryellen reports he does his best to follow up with his providers as recommended. Review of record shows he has missed two Clinical Pharmacy appointments since April 2023. Maryellen [facility] but has not scheduled appointments yet. Maryellen had one ER visit on 10/11/2023 for hypertension, was discharged home same day. Maryellen has a complex medical history and continues to benefit from the education and skilled oversight provided by the HT program to prevent hospitalization and institutionalization. Maryellen denies any falls or hospitalizations during the past six months. HEALTH STATUS and REVIEW OF SYSTEMS: Active problems - Computerized Problem List is the source for the followin. Bradycardia 2. Benign Prostatic Hypertrophy with Outflow Obstruction ([facility] [id number]) 3. Erectile Dysfunction ([facility] [id number]) 4. Depression ([facility] [id number]) 5. Actinic keratosis 6. Basal cell carcinoma of skin 7. Vitamin D Deficiency ([facility] [id number]) 8. Contact dermatitis 9. Space-occupying lesion of brain 10. Second degree atrioventricular block 11. Cancer screening follow up 12. Hyperglycemia due to type 2 diabetes mellitus 13. PVD-peripheral vascular disease 14. Hyperlipidemia 15. Elevated PSA 16. Epistaxis * 17. Sleep apnea (SNOMED CT 12312056) 18. Superficial basal cell carcinoma 19. Gastroesophageal reflux disease (SNOMED CT 180007825) 20. Anxiety 21. Diabetes mellitus (SNOMED CT 70954286) 22. Essential hypertension (SNOMED CT 26703649) 23. Body mass index 25-29 - overweight 24. Recurrent major depression in partial remission REVIEW OF SYSTEMS Constitutional: Denies: Fever, Chills, Sweats, Malaise, Weight change Ears, nose, mouth, throat: Denies: Hearing change, Ear pain, Tinnitus, Sinus pain, Sinus congestion, Sinus drainage, Post nasal drip, Throat pain, Difficulty swallowing, Tooth pain Eyes: Denies: Vision loss, Diplopia, Discharge, Eye pain, Floaters Comments: reports his vision is occasionally blurry, improves when he uses eye drops. Recommended call optometry to schedule appointment. Respiratory: Denies: Shortness of breath, Wheezing, Dry cough, Productive cough Cardiovascular: Denies: Chest pain/pressure, Orthopnea, Palpitations, Racing heart, Lower extremity swelling, Sudden weight gain, Diaphoresis Gastrointestinal: Denies: Abdominal pain, Nausea, Vomiting, Change in bowel habits, Loose stool Comments: Denies any visible blood on stool or dark tarry stool. Genitourinary: Denies: Dysuria, Hematuria, Frequency , Nocturia, Hesitancy Musculoskeletal: Denies: Neck pain/stiffness, Back pain, Joint pain/swelling, Calf pain, Muscle aches, Recent trauma Neurologic: Denies: Vertigo, Syncope, Near syncope, Headaches, Unilateral weakness, Balance change Comments: [place] denies any dizziness or lightheadedness. Psychiatric: Denies: Hallucinations, Paranoia, Change in sleep, Appetite change, Memory loss, Poor concentration Reports: Depression, Anxiety Comments: reports anxiety and occasional depression. Follows up with Mental Health provider. Denies any thoughts of harm to self or others. Skin: Denies: Rash, Skin lesions, Jaundice, Discharge, Ulcerations, Hair/nail changes Endocrine: Denies: Polydipsia, Polyuria, Polyphasia, Frequent infections, Slow healing wounds Hematologic: Denies: Easy bruising, Prolonged bleeding Is the [place] on Oxygen? No reports he uses Bipap nightly. reports he does not smoke, vape or use tobacco products. reports he does not drink alcohol or use other substances. PROGRESS TOWARDS GOAL(S): GILL DELUNA (-7106) Vital Sign for: 04/29/2023 - 10/25/2023 (All times are EST; All weights are lbs) Primary DMP: VHA-HTN Comorbid(s): Summary Weight Sys BP Barnett BP HR Pain High 178.4 185 96 110 Low 166.5 100 56 41 Average 172.8 141 76 77 Source: [employer]; [employer] Rosebud's blood pressure has been labile; often hypertensive recently. Heart rate also labile. reports he does his best with low sodium, diabetic diet. He reports he reads labels for sodium content, has cut back on eating soups due to sodium, eating more fresh protein (chicken, meats, etc.). Rosebud reports he drinks decaf coffee. Rosebud reports he is taking all medications as prescribed, has made adjustments of times to take certain blood pressure medications per PCP's recommendations. Rosebud reports increased anxiety and stress related to his job. He reports he plans to request to decrease hours to part-time in the near future. Maryellen reports he does his best to exercise when he can, however, has a very busy work schedule. Maryellen reports he does his best with following up with providers as recommended, has missed two Clinical Pharmacy appointments since April 2023. Maryellen has been recommended to schedule follow up appointments [facility] but has not done this yet. Has a PACT appointment on 10/27/2023 and wants to discuss with PCP. UPDATE OF GOALS AND CARE COORDINATION INTERVENTION PLAN (all goals are for the next 180 days): will assess blood pressure and weight daily as ordered by provider and transmit data to Home Telehealth daily. will improve self management skills of Hypertension by completing the DMP sessions daily. Rosebud's blood pressure will be less than 130/80. Rosebud will monitor for signs/symptoms of Hypertension and notify provider or call as appropriate. Rosebud will take all medications as ordered by provider. Rosebud will maintain low sodium diet and avoid caffeine. Rosebud will exercise as tolerated to increase exercise to 30 minutes a day. will call Seismograph Operator Helper or provider with any medical questions or concerns. Active prescriptions : Active Outpatient Medications (including Supplies): Active Outpatient Medications Status ========= 1) CARBOXYMETHYLCELLULOSE NA 0.5% OPH SOLN INSTILL 1 ACTIVE DROP INTO EACH EYE THREE TIMES A DAY 2) CHLORTHALIDONE 25MG TAB TAKE ONE TABLET BY MOUTH ONCE ACTIVE DAILY TO REMOVE FLUID/CONTROL BLOOD PRESSURE 3) CLONIDINE HCL 0.1MG TAB TAKE ONE TABLET BY MOUTH ACTIVE (S) EVERY 12 HOURS TO CONTROL BLOOD PRESSURE 4) DEXTROSE 24GM/31GM SQUEEZE TUBE 1 TUBE BY MOUTH ACTIVE NEEDED FOR LOW BLOOD SUGAR 5) FINASTERIDE 5MG TAB TAKE ONE TABLET BY MOUTH ONCE ACTIVE (S) DAILY FOR PROSTATE 6) GLUCOSE SENSOR DEXCOM G7 USE 1 SENSOR DIRECTED HOLD EVERY 10 DAYS 7) GLUCOSE SENSOR FREESTYLE UGO 3 USE 1 SENSOR ACTIVE DIRECTED EVERY 14 DAYS 8) INSULIN,ASPART(EQV-NOVLG)100UN/M L FLXPEN INJECT ACTIVE DIRECTED SUBCUTANEOUSLY THREE TIMES A DAY ACCORDING TO ICR OF 1 UNIT FOR EACH 9 GRAMS OF CARBS BEFORE BREAKFAST AND LUNCH AND 1 UNIT FOR EACH 10 GRAMS OF CARBS BEFORE DINNER MEAL 9) INSULIN,GLARGINE-YFGN 100UNIT/ML PEN 3ML INJECT 18 ACTIVE (S) UNITS SUBCUTANEOUSLY ONCE DAILY 10) LORAZEPAM 0.5MG TAB TAKE ONE TABLET BY MOUTH ONCE ACTIVE DAILY FOR ANXIETY 11) NEEDLE,PEN 31G,5MM USE 1 NEEDLE SUBCUTANEOUSLY [...] ACTIVE (S) DAILY Active Non-VA Medications Status ========= 1) Non-VA FLUTICASONE NASAL SOLN,NASAL INTO EACH ACTIVE NOSTRIL 15 Total Medications The [place] does not get prescriptions from outside providers. Is the [place] taking other medications including over the counter medications? Yes These medications are listed in the Non-VA medications list in CPRS. /caregiver has a current list of active medications. The [place] and/or caregiver does not have questions about medications. MEDICATION INTERVENTIONS: Reviewed current list of medications, educated as needed HEALTH EDUCATION Education provided: In-home monitoring Level of Understanding: Good Self-care activities Preventive Health: Hypertension: Exercise Level of Understanding: Good Medication adherence Level of Understanding: Good Nutrition/diet Level of Understanding: Good Response to instruction: [place]bud verbalizes understanding (states essential concepts) Plan/Education follow-up: No follow-up indicated/planned at this time EMERGENCY MANAGEMENT (DUE TO ENVIRONMENTALLY-RELATED OR TECHNOLOGY -RELATED EMERGENCIES) - PATIENT CLASSSIFICATION/PRIORITY LEVEL: Level 3 (Low Priority) - Can go 7-14 days without HT intervention A. Veterans that have physical, emotional and local resources and are able to access them. Disaster Plan discussed with /Caregiver verbalized understanding and denies any questions or concerns regarding disaster planning or emergency preparedness at this time. TYPE OF ENCOUNTER: Telephone Length of call: 31-45 minutes Average Response Rate July 2023-September 2023: 56.4% This [place] meets SIMRAN criteria but is being placed in the NICLR (SIMRAN Low Responder) Category of Care due to not meeting participation requirements but is still benefitting from HT enrollment. [facility] ======== COACHING SKILLS ======== Coaching or Motivational Interviewing skills used. /simone/ KAVITHA Albert, RN [facility]-Home Telehealth Seismograph Operator Helper Signed: 10/25/2023 07:42 Receipt Acknowledged By: 10/26/2023 01:07 /simone/ MARIIA BROUSSARD MD PHYSICIAN ALCIRA LAYNE [facility]
--- OUTSIDE RECORDS SUMMARY | 2024-08-21 23:29 | XMS_ITS | Encounter Summary ---
Author Name [place] Address [address] [place] [address] Care Team Providers Care Pound Keeper Name Role Phone MARIIA BROUSSARD Primary Care [...] Patient's Relationship to Policy [employer] EXPRESS SCRIPTS ([id number]) PRESCRIPT ION [facility] Mar 11, 2018 [id number] MADAI DELUNA OTHER RELATIONSHIP [facility] PREFERRED PROVIDER ORGANIZAT ION (PPO) Jun 11, 2011 [id number] MADAI DELUNA PATIENT HUMANA [facility] (WNR) MEDICARE ADVANTAGE [facility] (WNR) Sep 11, 2022 [id number] [phone] GILL DELUNA PATIENT MEDICARE (WNR) MEDICARE (M) PART A January 10, 2012 PART A [id number] [phone] GILL DELUNA PATIENT MEDICARE (WNR) MEDICARE (M) PART B January 10, 2012 PART B [id number] GILL DELUNA PATIENT MEDICARE (WNR) MEDICARE (M) PART A January 10, 2012 PART A [id number] GILL DELUNA PATIENT UNICARE PREFERRED PROVIDER ORGANIZAT ION (PPO) [place] RE STATE INDE* * Mar 11, 2015 [id number] MADAI DELUNA SPOUSE [facility] (WNR) MEDICARE ADVANTAGE [facility] (WNR) Mar 11, 2021 [id number] GILL DELUNA PATIENT WELLCARE [facility] (WNR) MEDICARE ADVANTAGE [facility] (WNR) Sep 11, 2021 [id number] GILL DELUNA PATIENT Selected Encounter This section includes the information on record at [place] for the Encounter. Date/Time Encounter Type Encounter Description Reason Provider Source Oct 12, 2023 11:10 AM PRO PHONE CALL 5-10 MIN TELEPHONE/MEDICIN E ICD-10-CM I11.9 Hypertensive heart disease without heart failure RAAD WILD [facility] Encounter Template Text not used by [place] Assessments - Encounter Diagnoses This section includes the primary and secondary diagnoses documented for the Encounter. Date/Time Primary/Secondary Diagnosis Diagnosis Name Provider Source Oct 12, 2023 11:10 AM PRIMARY Hypertensive heart disease without heart failure RAAD WILD [facility] Plan of Treatment: Future Appointments (+ [...] 23, 2023 11:00 AM [facility] Oct 23, 2023 11:01 AM [facility] Oct 27, 2023 08:00 AM AMBULATORY - MEDICINE [facility] Oct 27, 2023 11:00 AM [facility] Oct 30, 2023 06:00 PM AMBULATORY - MEDICINE [facility] [place] [facility] Nov 07, 2023 10:00 AM AMBULATORY - MEDICINE [facility] [place] [facility] Nov 10, 2023 01:15 PM AMBULATORY - MEDICINE [facility] [facility] Nov 13, 2023 12:00 PM AMBULATORY - MEDICINE [facility] [place] [facility] Nov 20, 2023 11:00 AM AMBULATORY - MEDICINE [facility] [place] [facility] Nov 27, 2023 11:00 AM AMBULATORY - MEDICINE [facility] [place] [facility] Nov 28, 2023 11:00 AM AMBULATORY - MEDICINE [facility] [place] [facility] Dec 04, 2023 01:00 PM AMBULATORY - NONE [facility] [place] [facility] Dec 11, 2023 11:00 AM AMBULATORY - MEDICINE [facility] [place] [facility] Dec 12, 2023 09:00 AM AMBULATORY - MEDICINE [facility] [place] [facility] January 15, 2024 01:40 PM AMBULATORY - MEDICINE [facility] [place] [facility] January 22, 2024 08:30 AM AMBULATORY - MEDICINE [facility] Mar 01, 2024 10:00 AM AMBULATORY - MEDICINE [place] [facility] [place] [facility] Lab Results: +/- 30 [...] Range Comment Nov 02, 2023 12:00 AM [place] OCCULT BLOOD FIT X1 SCREEN(IN-HOUSE) Sp ecimen Type: FECES No comment entered. Ordering Provider: MARIIA CABRAL Report Released Date/Time: Oct 27, 2023 12:56 PM Reporting Lab: [facility] [place] [address] [address] Performing Lab: [place] [facility] [facility] [address] [facility] [address] OCCULT BLOOD (FIT)#1 OF 1 Negative NEG [...] 12, 2022 03:10 PM [facility]CO [facility] Encounter Notes: All associated encounter notes This section contains the clinical notes associated to the Encounter. Date/Time Encounter Note(s) Provider Source Oct 12, 2023 11:32 AM CARE COORDINATION HOME TELEHEALTH FOLLOW-UP NOTE: LOCAL TITLE: HT INTERVENTION NOTE STANDARD TITLE: CARE COORDINATION HOME TELEHEALTH FOLLOW-UP NOTE DATE OF NOTE: OCT 12, 2023@11:32 ENTRY DATE: OCT 12, 2023@11:32:15 AUTHOR: ZEINA WILD EXP COSIGNER: URGENCY: STATUS: COMPLETED HT INTERVENTION NOTE Has ADDENDA is actively enrolled in the Home Telehealth program. Review of data shows the following out of range responses: GILL DELUNA (-6430) Vital Sign for: 09/13/2023 - 10/12/2023 (All times are EST; All weights are lbs) Primary DMP: VHA-HTN Comorbid(s): Summary Weight Sys BP Barnett BP HR Pain High 178.4 185 96 101 Low 171.2 118 75 46 Average 175.0 150 82 79 Date Time Wt Time Sys Barnett Time HR Time Pain 10/11/2023 12:41 171.2 12:40 141/79 12:40 89 [...] 23:32 174.7 23:31 140/78 23:31 101 Source: [email or web address]; [employer] Assessment: identified by full name and . Called to check in due to ER visit yesterday. reports he was admitted overnight due to an elevated BP of 204/107. He reports the hospital completed blood work and x rays. His BP finally normalized at 430 am, 122/76. Jovani does think part the cause may have been an anxiety attack. Jovani reports that the ER provider recommended following up with his PCP in 3 days, and recommended adjusting his BP medication schedule. Jovani remembers that an enzyme was elevated on his labwork but he is unable to recall anymore information. Jovani just woke up, as he was discharged from the hospital at 5 am this morning. Jovani will take his BP medication as prescribed this morning: Morning: Chlorthalidone and Clonidine Evening: Valsartan and Clonidine He was reminded that Clonidine is now twice a day and not daily. This will be the first day he is taking Clonidine twice a day. Notified PACT RN who can access [facility] records. MSA: please schedule Jovani for a visit post hospital discharge, thank you. TYPE OF ENCOUNTER: Telephone Length of call: 5-10 minutes /simone/ ZEINA WILD REGISTERED NURSE Signed: 10/12/2023 11:40 Receipt Acknowledged By: 10/12/2023 12:33 /simone/ LORETA DAMICO 10/12/2023 13:56 /es/ ESTHELA MORTON RN REGISTERED NURSE 10/14/2023 11:24 /es/ MARIIA BROUSSARD MD PHYSICIAN 10/16/2023 13:39 /es/ Marybeth Blanchard RN-BS Piping Manager 10/13/2023 08:43 /es/ SHAHBAZ DAMICO 10/12/2023 ADDENDUM STATUS: COMPLETED PUBLIC [facility] SPOKE WITH JOVANI TO MAKE APPOINTMENT WITH PCP FOR HOSPITAL DISCHARGE FOLLLOW UP AND PUBLIC HEALTH ALSO REQUESTED RECORDS. /simone/ LORETA DAMICO Signed: 10/12/2023 12:34 ZEINA WILD [facility]
--- OUTSIDE RECORDS SUMMARY | 2024-08-21 23:29 | XMS_ITS | Encounter Summary ---
Author Name [facility] [place] [facility] [place] Organization [facility] [place] Address [address] [place] [address] Care Team Providers Care Wing Coverer Name Role Phone MARIIA RODRIGEZ Primary Care [...] Patient's Relationship to Policy [employer] ([id number]) PRESCRIPT ION [facility] Mar 11, 2018 [id number] MADAI DELUNA OTHER RELATIONSHIP [facility] PREFERRED PROVIDER ORGANIZAT ION (PPO) Jun 11, 2011 [id number] [phone] MADAI DELUNA PATIENT [facility]NA [facility] (WNR) MEDICARE ADVANTAGE [facility] (WNR) Sep 11, 2022 [id number] [phone] GILL DELUNA PATIENT MEDICARE (WNR) MEDICARE (M) PART A January 10, 2012 PART A [id number] [phone] GILL DELUNA PATIENT MEDICARE ([place]) MEDICARE (M) PART B January 10, 2012 PART B [id number] [phone] GILL DELUNA PATIENT MEDICARE ([place]) MEDICARE (M) PART A January 10, 2012 PART A [id number] GILL DELUNA PATIENT UNICARE PREFERRED PROVIDER ORGANIZAT ION (PPO) UNICA RE STATE INDE* * Mar 11, 2015 [id number] MADAI DELUNA [facility] (WNR) MEDICARE ADVANTAGE [facility] (WNR) Mar 11, 2021 [id number] GILL DELUNA PATIENT [facility] (WNR) MEDICARE ADVANTAGE [facility] (WNR) Sep 11, 2021 [id number] [phone] GILL DELUNA PATIENT Selected Encounter This section includes the information on record at [place] for the Encounter. Date/Time Encounter Type Encounter Description Reason Provider Source Oct 24, 2023 02:51 PM HC PRO PHONE CALL 11-20 MIN TELEPHONE/MEDICIN E ICD-10-CM I11.9 Hypertensive heart disease without heart failure ALCIRA LAYNE Belle Encounter Template Text not used by [place] Assessments - Encounter Diagnoses This section includes the primary and secondary diagnoses documented for the Encounter. Date/Time Primary/Secondary Diagnosis Diagnosis Name Provider Source Oct 24, 2023 02:51 PM PRIMARY Hypertensive heart disease without heart failure ALCIRA LAYNE [facility] Oct 24, 2023 02:51 PM SECONDARY Type 2 diabetes mellitus without [facility] Plan of Treatment: Future Appointments (+ [...] 27, 2023 08:00 AM AMBULATORY - MEDICINE [facility] Oct 27, 2023 11:00 AM AMBULATORY - MEDICINE [facility] Oct 30, 2023 06:00 PM [facility] [place] [facility] Nov 07, 2023 10:00 AM AM[facility]UL[facility]ORY [facility]ICINE [facility] [place] [facility] Nov 10, 2023 01:15 PM AMBULATORY - MEDICINE [facility] [place] [facility] Nov 13, 2023 12:00 PM AMBULATORY - MEDICINE [facility] [place] [facility] Nov 20, 2023 11:00 AM AM[facility]ULATORY [facility]ICINE [facility] [place] [facility] Nov 27, 2023 11:00 AM AM[facility]ICINE [facility] [place] [facility] Nov 28, 2023 11:00 AM AMBULATORY - MEDICINE [facility] [place] [facility] Dec 04, 2023 01:00 PM AMBULATORY - NONE [facility] [place] [facility] Dec 11, 2023 11:00 AM AMBULATORY - MEDICINE [facility] [place] [facility] Dec 12, 2023 09:00 AM AMBULATORY - MEDICINE [facility] [place] [facility] January 15, 2024 01:40 PM AMBULATORY - MEDICINE [facility] [place] [facility] January 22, 2024 08:30 AM AMBULATORY - MEDICINE [facility] Mar 01, 2024 10:00 AM AMBULATORY - [place]ICINE [place] [facility] [place] [facility] Lab Results: +/- 30 days [...] Range Comment Nov 02, 2023 12:00 AM [place] OCCULT BLOOD FIT X1 SCREEN(IN-HOUSE) Sp ecimen Type: FECES No comment entered. Ordering Provider: MARIIA CABRAL Report Released Date/Time: Oct 27, 2023 12:56 PM Reporting Lab: [facility] [address] [facility] [facility] [id number] Performing Lab: [facility] [address] [id number] OCCULT BLOOD (FIT)#1 OF 1 Negative NEG [...] VA-TOBACCO NEVER USED [facility] [place] [facility] Encounter Notes: All associated encounter notes This section contains the clinical notes associated to the Encounter. Date/Time Encounter Note(s) Provider Source Oct 24, 2023 03:22 PM ADDENDUM: LOCAL TITLE: Addendum STANDARD TITLE: ADDENDUM DATE OF NOTE: OCT 24, 2023@15:22:43 ENTRY DATE: OCT 24, 2023@15:22:44 AUTHOR: ALCIRA LAYNE EXP COSIGNER: URGENCY: STATUS: COMPLETED had ER visit at [facility] on 10/11/2023 for hypertension. Please obtain records. Thank you! /simone/ KAVITHA Albert, RN RPM-Home Telehealth Ecotherapist Signed: 10/24/2023 15:23 Receipt Acknowledged By: 10/25/2023 09:26 /es/ LORETA DAMICO 10/27/2023 09:32 /es/ ABDI ALMARAZ LPN LPN 10/25/2023 15:53 /es/ KYLER DURON RN REGISTERED NURSE --- Original Document --- 10/24/23 HT INTERVENTION NOTE: is actively enrolled in the Home Telehealth program. Review of data shows the following out of range responses: GILL DELUNA (-[id number]) Vital Sign for: 09/25/2023 - 10/24/2023 (All times are EST; All weights are lbs) Primary DMP: VHA-HTN Comorbid(s): Summary Weight Sys BP Barnett BP HR Pain High 178.4 184 96 107 Low 171.2 101 56 43 Average 175.0 146 78 70 Date Time Wt Time Sys Barnett Time HR Time Pain ======== 10/24/2023 10:54 173.4 10:52 147/76 10:52 43 [...] 23:14 88 09/27/2023 23:10 175.6 - - Source: [facility]; [facility] [employer] Pro System Assessment: Ongoing hypertension, blood pressure labile at [facility]. Weight stable. Alert generated for bradycardia: 43 Alert Responses: Please be aware of snow storm coming to this area. Follow your local forecast & prepare. Have emergency numbers, food/water & medical supplies ready. [place] more info visit [place]. - Yes Other Responses: Actively involved outside of home Participates in activities: Three times a week Called (Hollis identified by full name and date of ) to review data and assess for any symptoms, changes, questions or concerns. Maryellen reports he is doing okay, feels well at this time. He had an ER visit at [facility] on 10/11/2023 due to hypertension. Maryellen reports his troponin level was around 28. He reports he had follow up blood work and was told this may be his normal troponin level. Maryellen reports he has not contacted Community [employer] to schedule an appointment yet, wants to discuss with PACT at upcoming appointment on 10/27/2023. Maryellen denies any headaches, dizziness, lightheadedness, flushing of face, ear/jaw/neck/arm pain or discomfort, chest pain, shortness of breath, palpitations, racing of heart, unusual fatigue or weakness. Maryellen reports his vision gets blurry at times but it improves when he uses his eye drops; often has dry eyes. He intends on scheduling optometry appointment when everything else settles down . Maryellen reports he is taking the following antihypertensive medications: valsartan 320mg by mouth daily (taking at night) chlorthalidone 25mg by mouth daily (taking in the morning) clonidine 0.1mg by mouth every 12 hours Maryellen denies any skipped/missed doses. Denies any questions or concerns about his medications at this time. Maryellen reports he does his best to maintain a low sodium diet, reads labels for sodium content, has cut back on eating soups due to sodium, eatiing more fresh protein (chicken, meats, etc.). Maryellen reports he drinks decaf coffee (currently drinking thrid cup today); Maryellen states It helps me to lose weight. Maryellen reports he does not sit and rest prior to assessing his blood pressure. Maryellen reports he has decided to decrease his work hours to part-time, plans to request this with his employer after PACT appointment on Monday. Maryellen reports his job has become extremely frustrating and stressful. Maryellen is aware of upcoming appointments with Clinical Pharmacist and PACT on 10/27/2023 and plans to attend both appointments. Maryellen reports difference of 70 points between Ugo 3 glucose sensor and blood glucose. This is concerning to him as he lives alone. He is considering stopping continuous glucose monitoring and returning to fingerstick assessments. He states he will discuss this with pharmacist at upcoming appointment. Intervention(s)/Plan: Reviewed/Educated Hollis on signs/symptoms of hypertension, risks (including stroke, heart attack, heart disease, kidney and eye disease, as well as many other problems), treatment, when and where to seek help (call PACT vs. ). Reviewed/Educated on normal blood pressure: less than 120/80 Reviewed/Educated on target goal for blood pressure of less than 130/80. Reviewed/Educated Hollis if blood pressure suddenly exceeds 180/120, wait five minutes and then test your blood pressure again. If your readings are still unusually high, call or go to nearest ER for evaluation/treatment. Reviewed/Educated Hollis on normal heart rate: 60-100 Reviewed/Educated Hollis if heart rate is frequently greater than 100, contact your provider. Reviewed/Educated on how to take an accurate blood pressure. Do not bathe, shower, exercise, eat or drink caffeinated beverages for at least 30-60 minutes before checking your blood pressure. Assess your blood pressure approximately two hours after taking your medication. Rest for at least 5-15 minutes prior to assessing your blood pressure. Remain still, try remain calm and do not talk, eat or drink while using the monitor. Call your provider's office if your systolic pressure (top number) is frequently over 130. Call your provider's office if your diastolic pressure (bottom number) is frequently over 80. Reviewed/Educated on medications and instructed to take all medications as ordered. Reviewed/Educated on effects of sodium and caffeine on blood pressure and importance of maintaining low sodium diet (less than 2000mg per day) and avoiding caffeine. Encouraged Hollis to eat fresh fruits, vegetables and meat. Do not add salt to food, use sodium free seasonings such as MrsWillian Mahan. Avoid fried, fast or processed foods. Read labels for sodium content and monitor portion sizes for meals. Hydrate well with water throughout the day (at least 64 ounces daily). Reminded of the following upcoming appointments: 10/27/2023 08:00 CWM/SO/PHARM/PACT 2 10/27/2023 11:00 CWM/SO/PACT 5 Reviewed/Educated Hollis to complete HT health check daily and as needed. Transmit all data to for review/monitoring. Instructed to bring blood pressure monitor with him to PACT appointment to compare results. Provided Hollis with education regarding continuous glucose monitoring sensor and fingerstick blood glucose, there may be a 10-15 minute delay as some continuous glucose sensors measure interstitial fluid and not blood from the vein. Educated on importance of carrying glucometer at all times when he leaves home in the event of sensor failure or concerning glucose readings. Provided education to Hollis on Purple Blue Bo, what it means, some programs that are offered by [place] to help with relaxation and over all well-being. Sent link to [employer] website on [facility] for further resources. Educated Hollis on Alpha Stim for anxiety and depression (encouraged to discuss with Mental Health provider to see if he is a candidate for this). Hollis states he has done biofeedback before, he may be interested in trying it again. Encouraged to write down any questions/concerns before PACT appointment and discuss with PCP. Encouraged to scheduled community care cardiology appointment and optometry appointment. Hollis verbalized understanding of all education and denied any questions or concerns. Hollis stated I feel better now that I've talked to you about this. He expressed appreciation for the call and education. Forwarding to provider to please review and advise of any changes in plan of care. Thank you! Dr. Rodrigez, has not contacted community senior technical support engineer to set up follow up appointment, he states he wants to discuss with you at upcoming appointment. Review of Community [facility] cardiology consult says approved for 180 days; he may need a new consult placed. Educated on Whole Health offerings at [place] to help with relaxation and anxiety; he seemed interested in exploring and may discuss this with you as well. TYPE OF ENCOUNTER: Telephone Length of call: 11-20 minutes WHOLE HEALTH WHOLE HEALTH EDUCATION Whole Health Education was provided. COACHING SKILLS Coaching or Motivational Interviewing skills used. /simone/ KAVITHA Albert, RN [facility]-Home Telehealth Ecotherapist Signed: 10/24/2023 15:22 Receipt Acknowledged By: 10/26/2023 08:25 /es/ LUX ARMSTRONG CLINICAL DRIVER MANAGER 10/24/2023 18:55 /es/ MARIIA RODRIGEZ MD PHYSICIAN 10/25/2023 ADDENDUM STATUS: COMPLETED MIND READER REQUESTED RECORDS. /es/ LORETA DAMICO Signed: 10/25/2023 09:26 ALCIRA LAYNE [place] [facility] [place] [facility] Oct 24, 2023 02:51 PM CARE COORDINATION HOME TELEHEALTH FOLLOW-UP NOTE: LOCAL TITLE: HT INTERVENTION NOTE STANDARD TITLE: CARE COORDINATION HOME TELEHEALTH FOLLOW-UP NOTE DATE OF NOTE: OCT 24, 2023@14:51 ENTRY DATE: OCT 24, 2023@14:51:55 AUTHOR: ALCIRA LAYNE COSIGNER: URGENCY: STATUS: COMPLETED HT INTERVENTION NOTE Has ADDENDA Hollis is actively enrolled in the Home Telehealth program. Review of data shows the following out of range responses: GILL DELUNA (-[id number]) Vital Sign for: 09/25/2023 - 10/24/2023 (All times are EST; All weights are lbs) Primary DMP: VHA-HTN Comorbid(s): Summary Weight Sys BP Barnett BP HR Pain High 178.4 184 96 107 Low 171.2 101 56 43 Average 175.0 146 78 70 Date Time Wt Time Sys Barnett Time HR Time Pain ======== 10/24/2023 10:54 173.4 10:52 147/76 10:52 43 [...] 23:14 88 09/27/2023 23:10 175.6 - - Source: [facility]; [employer] Assessment: Ongoing hypertension, blood pressure labile at [facility]. Weight stable. Alert generated for bradycardia: 43 Alert Responses: Please be aware of snow storm coming to this area. Follow your local forecast & prepare. Have emergency numbers, food/water & medical supplies ready. [place] more info visit [place] - Yes Other Responses: Actively involved outside of home Participates in activities: Three times a week Called Maryellen (Hollis identified by full name and date of ) to review data and assess for any symptoms, changes, questions or concerns. Maryellen reports he is doing okay, feels well at this time. He had an ER visit at [facility] on 10/11/2023 due to hypertension. Maryellen reports his troponin level was around 28. He reports he had follow up blood work and was told this may be his normal troponin level. Maryellen reports he has not contacted [facility] [employer] to schedule an appointment yet, wants to discuss with PACT at upcoming appointment on 10/27/2023. denies any headaches, dizziness, lightheadedness, flushing of face, ear/jaw/neck/arm pain or discomfort, chest pain, shortness of breath, palpitations, racing of heart, unusual fatigue or weakness. Maryellen reports his vision gets blurry at times but it improves when he uses his eye drops; often has dry eyes. He intends on scheduling optometry appointment when everything else settles down . reports he is taking the following antihypertensive medications: valsartan 320mg by mouth daily (taking at night) chlorthalidone 25mg by mouth daily (taking in the morning) clonidine 0.1mg by mouth every 12 hours denies any skipped/missed doses. Denies any questions or concerns about his medications at this time. Maryellen reports he does his best to maintain a low sodium diet, reads labels for sodium content, has cut back on eating soups due to sodium, eatiing more fresh protein (chicken, meats, etc.). Hollis reports he drinks decaf coffee (currently drinking thrid cup today); Maryellen states It helps me to lose weight. Maryellen reports he does not sit and rest prior to assessing his blood pressure. Maryellen reports he has decided to decrease his work hours to part-time, plans to request this with his employer after PACT appointment on Monday. Maryellen reports his job has become extremely frustrating and stressful. Maryellen is aware of upcoming appointments with Clinical Pharmacist and PACT on 10/27/2023 and plans to attend both appointments. Maryellen reports difference of 70 points between Ugo 3 glucose sensor and blood glucose. This is concerning to him as he lives alone. He is considering stopping continuous glucose monitoring and returning to fingerstick assessments. He states he will discuss this with pharmacist at upcoming appointment. Intervention(s)/Plan: Reviewed/Educated Maryellen on signs/symptoms of hypertension, risks (including stroke, heart attack, heart disease, kidney and eye disease, as well as many other problems), treatment, when and where to seek help (call PACT vs. ). Reviewed/Educated Maryellen on normal blood pressure: less than 120/80 Reviewed/Educated Maryellen on target goal for blood pressure of less than 130/80. Reviewed/Educated Maryellen if blood pressure suddenly exceeds 180/120, wait five minutes and then test your blood pressure again. If your readings are still unusually high, call or go to nearest ER for evaluation/treatment. Reviewed/Educated Maryellen on normal heart rate: 60-100 Reviewed/Educated Maryellen if heart rate is frequently greater than 100, contact your provider. Reviewed/Educated Maryellen on how to take an accurate blood pressure. Do not bathe, shower, exercise, eat or drink caffeinated beverages for at least 30-60 minutes before checking your blood pressure. Assess your blood pressure approximately two hours after taking your medication. Rest for at least 5-15 minutes prior to assessing your blood pressure. Remain still, try remain calm and do not talk, eat or drink while using the monitor. Call your provider's office if your systolic pressure (top number) is frequently over 130. Call your provider's office if your diastolic pressure (bottom number) is frequently over 80. Reviewed/Educated on medications and instructed to take all medications as ordered. Reviewed/Educated on effects of sodium and caffeine on blood pressure and importance of maintaining low sodium diet (less than 2000mg per day) and avoiding caffeine. Encouraged Hollis to eat fresh fruits, vegetables and meat. Do not add salt to food, use sodium free seasonings such as Mrs. Mahan. Avoid fried, fast or processed foods. Read labels for sodium content and monitor portion sizes for meals. Hydrate well with water throughout the day (at least 64 ounces daily). Reminded of the following upcoming appointments: 10/27/2023 08:00 CWM/SO/PHARM/PACT 2 10/27/2023 11:00 CWM/SO/PACT 5 Reviewed/Educated Hollis to complete HT health check daily and as needed. Transmit all data to for review/monitoring. Instructed to bring HT blood pressure monitor with him to PACT appointment to compare results. Provided Hollis with education regarding continuous glucose monitoring sensor and fingerstick blood glucose, there may be a 10-15 minute delay as some continuous glucose sensors measure interstitial fluid and not blood from the vein. Educated Hollis on importance of carrying glucometer at all times when he leaves home in the event of sensor failure or concerning glucose readings. Provided education to Hollis on Whole 140 Proof, what it means, some programs that are offered by [place] to help with relaxation and over all well-being. Sent Hollis link to [facility] website on [facility] for further resources. Educated Hollis on Alpha Stim for anxiety and depression (encouraged Hollis to discuss with Mental Health provider to see if he is a candidate for this). states he has done biofeedback before, he may be interested in trying it again. Encouraged to write down any questions/concerns before PACT appointment and discuss with PCP. Encouraged to scheduled community care cardiology appointment and optometry appointment. verbalized understanding of all education and denied any questions or concerns. Hollis stated I feel better now that I've talked to you about this. He expressed appreciation for the call and education. Forwarding to provider to please review and advise of any changes in plan of care. Thank you! Dr. Rodrigez, Hollis has not contacted community senior technical support engineer to set up follow up appointment, he states he wants to discuss with you at upcoming appointment. Review of Community [facility] cardiology consult says approved for 180 days; he may need a new consult placed. Educated on Whole Health offerings at [place] to help with relaxation and anxiety; he seemed interested in exploring and may discuss this with you as well. TYPE OF ENCOUNTER: Telephone Length of call: 11-20 minutes WHOLE HEALTH WHOLE HEALTH EDUCATION Whole Health Education was provided. COACHING SKILLS Coaching or Motivational Interviewing skills used. /es/ KAVITHA Albert, RN RPM-Home Telehealth Ecotherapist Signed: 10/24/2023 15:22 Receipt Acknowledged By: 10/26/2023 08:25 /es/ LUX ARMSTRONG CLINICAL DRIVER MANAGER 10/24/2023 18:55 /es/ MARIIA RODRIGEZ MD PHYSICIAN 10/24/2023 ADDENDUM STATUS: COMPLETED had ER visit at [facility] on 10/11/2023 for hypertension. Please obtain records. Thank you! /simone/ KAVITHA Albert, RN RPM-Home Telehealth Ecotherapist Signed: 10/24/2023 15:23 Receipt Acknowledged By: 10/25/2023 09:26 /simone/ LORETA DAMICO * AWAITING SIGNATURE * ABDI ALMARAZ 10/25/2023 15:53 /simone/ KYLER DURON RN REGISTERED NURSE 10/25/2023 ADDENDUM STATUS: COMPLETED MIND READER REQUESTED RECORDS. /simone/ LORETA DAMICO Signed: 10/25/2023 09:26 ALCIRA LAYNE [facility]
--- OUTSIDE RECORDS SUMMARY | 2024-08-21 23:29 | XMS_ITS | Encounter Summary ---
Author Name [facility] [place] Address [address] [place] [address] Care Team Providers Care Cardroom Hand Name Role Phone MARIIA BROUSSARD Primary Care [...] Patient's Relationship to Policy Mancera EXPRESS SCRIPTS ([id number]) PRESCRIPT ION [facility] Mar 11, 2018 [id number] MADAI DELUNA OTHER RELATIONSHIP [facility] PREFERRED PROVIDER ORGANIZAT ION (PPO) Jun 11, 2011 [id number] MADAI DELUNA PATIENT HUMANA [facility] (WNR) MEDICARE ADVANTAGE [facility] ([facility]) Sep 11, 2022 [id number] [phone] GILL DELUNA PATIENT MEDICARE (WNR) MEDICARE (M) PART A January 10, 2012 PART A [id number] 41A MIKIE GILL PATIENT MEDICARE (WNR) MEDICARE (M) PART B January 10, 2012 PART B [id number] 41A GILL DELUNA PATIENT MEDICARE (WNR) MEDICARE (M) PART A January 10, 2012 PART A [id number] [phone] GILL DELUNA PATIENT UNICARE PREFERRED PROVIDER ORGANIZAT ION (PPO) CRISTHIAN RE STATE INDE* * Mar 11, 2015 [id number] MADAI DELUNA [facility] (WNR) MEDICARE ADVANTAGE [facility] ([facility]) Mar 11, 2021 [id number] GILL DELUNA PATIENT WELLCARE [facility] (WNR) MEDICARE ADVANTAGE [facility] (WNR) Sep 11, 2021 [id number] [phone] GILL DELUNA PATIENT Selected Encounter This section includes the information on record at [place] for the Encounter. Date/Time Encounter Type Encounter Description Reason Provider Source Oct 11, 2023 03:11 PM POS AIRWAY PRESSURE CPAP TELEPHONE/MEDICIN E ICD-10-CM G47.33 Obstructive sleep apnea (adult) (pediatric) THIERNO LORA [facility] Encounter Template Text not used by [place] Assessments - Encounter Diagnoses This section includes the primary and secondary diagnoses documented for the Encounter. Date/Time Primary/Secondary Diagnosis Diagnosis Name Provider Source Oct 11, 2023 03:11 PM PRIMARY Obstructive sleep apnea (adult) (pediatric) [facility] Plan of Treatment: Future Appointments (+ 6 [...] 23, 2023 11:00 AM AMBULATORY - [facility] [place] [facility] Oct 23, 2023 11:01 AM AMBULATORY - PS[place]CHIATRY [place] [facility] Oct 27, 2023 08:00 AM AMBULATORY - MEDICINE [facility]L [facility] Oct 27, 2023 11:00 AM AMBULATORY - MEDICINE [facility] Oct 30, 2023 06:00 PM AMBULATORY - MEDICINE [place] [facility] [place] [place] [facility] Nov 07, 2023 10:00 AM AMBULATORY - MEDICINE [place] [facility] Nov 10, 2023 01:15 PM AMBULATORY - MEDICINE [place] [facility] Nov 13, 2023 12:00 PM AMBULATORY - MEDICINE [place] [facility] Nov 20, 2023 11:00 AM AMBULATORY - MEDICINE [place] [facility] Nov 27, 2023 11:00 AM AMBULATORY - MEDICINE [place] [facility] Nov 28, 2023 11:00 AM AMBULATORY - MEDICINE [place] [facility] Dec 04, 2023 01:00 PM AMBULATORY - NONE [place] [facility] Dec 11, 2023 11:00 AM AMBULATORY - MEDICINE [place] [facility] Dec 12, 2023 09:00 AM AMBULATORY - MEDICINE [place] [facility] January 15, 2024 01:40 PM AMBULATORY - MEDICINE [place] [facility] January 22, 2024 08:30 AM AMBULATORY - MEDICINE [facility] Mar 01, 2024 10:00 AM AMBULATORY - MEDICINE [place] C NTRL [place] [facility] Lab Results: +/- 30 days of [...] Range Comment Nov 02, 2023 12:00 AM [place] OCCULT BLOOD FIT X1 SCREEN(IN-HOUSE) Sp ecimen Type: FECES No comment entered. Ordering Provider: MARIIA CABRAL Report Released Date/Time: Oct 27, 2023 12:56 PM Reporting [facility] [address] [address] Performing Lab: [place] CNT WSTRN [address] [address] OCCULT BLOOD (FIT)#1 OF 1 Negative NEG [...] 12, 2022 03:10 PM VA-TOBACCO NEVER USED [place] CNTRL [place] [facility] Encounter Notes: All associated encounter notes This section contains the clinical notes associated to the Encounter. Date/Time Encounter Note(s) Provider Source Oct 11, 2023 03:11 PM RESPIRATORY THERAP Y NOTE: LOCAL TITLE: RESPIRATORY THERAPY NOTE(BLANK) STANDARD TITLE: RESPIRATORY THERAPY NOTE DATE OF NOTE: OCT 11, 2023@15:11 ENTRY DATE: OCT 11, 2023@15:11:39 AUTHOR: THIERNO LORA EXP COSIGNER: URGENCY: STATUS: COMPLETED Patient diagnosed with sleep apnea data reviewed for Cpap renewal and supplies ordered from [facility]. [facility] COMPLIANCE PROGRAM Patient APAP compliance data reviewed via the xoompark program for the last 90 days. SETTINGS: Bipap 12/7cmh20 TOTAL DAYS USED 87 DAYS USED > 4hrs 60 AVG USAGE 5 hours LEAK 40 AHI: 2 [place]'s APAP Prescription will be renewed for 1 year. If pt has any questions or concerns regarding Apap, he/she can contact Respiratory at [phone] extension [phone]. /es/ THIERNO LORA CRT RESPIRATORY THERAPIST Signed: 10/11/2023 15:14 THIERNO LORA
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
--- OUTSIDE RECORDS SUMMARY | 2024-08-21 23:29 | XMS_ITS ---
Author Name [place] Address [address] [place] [address] Care Team Providers Care Division Controller Name Role Phone MARIIA BROUSSARD Primary Care [...] Patient's Relationship to Policy [employer] EXPRESS SCRIPTS ([id number]) PRESCRIPT ION [facility] Mar 11, 2018 [id number] [phone] MADAI DELUNA OTHER RELATIONSHIP [facility] PREFERRED PROVIDER ORGANIZAT ION (PPO) Jun 11, 2011 [id number] [phone] MADAI DELUNA PATIENT HUMANA [facility] (WNR) MEDICARE ADVANTAGE [facility] (WNR) Sep 11, 2022 [id number] [phone] GILL DELUNA PATIENT MEDICARE (WNR) MEDICARE (M) PART A January 10, 2012 PART A [id number] 41A MIKIE GILL PATIENT MEDICARE (WNR) MEDICARE (M) PART B January 10, 2012 PART B [id number] 41A GILL DELUNA PATIENT MEDICARE (WNR) MEDICARE (M) PART A January 10, 2012 PART A [id number] GILL DELUNA PATIENT UNICARE PREFERRED PROVIDER ORGANIZAT ION (PPO) UNICA RE STATE INDE* * Mar 11, 2015 [id number] MADAI DELUNA [facility] (WNR) MEDICARE ADVANTAGE [facility] (WNR) Mar 11, 2021 [id number] [phone] GILL DELUNA PATIENT WELLCARE [facility] (WNR) MEDICARE ADVANTAGE [facility] (WNR) Sep 11, 2021 [id number] GILL DELUNA PATIENT Selected Encounter This section includes the information on record at [place] for the Encounter. Date/Time Encounter Type Encounter Description Reason Provider Source Aug 29, 2023 07:34 AM Outpatient Encounter HT NON-VIDEO MONITORING ICD-10-CM I11.9 Hypertensive heart disease without heart failure ALCIRA LAYNE [place] Encounter Template Text not used by [place] Assessments - Encounter Diagnoses This section includes the primary and secondary diagnoses documented for the Encounter. Date/Time Primary/Secondary Diagnosis Diagnosis Name Provider Source Aug 29, 2023 07:39 AM PRIMARY Hypertensive heart disease without heart failure [facility] Plan of Treatment: Future Appointments (+ [...] 02, 2023 10:45 AM AMBULATORY [facility] [place] [facility] Oct 23, 2023 11:00 AM [facility] [place] [facility] Oct 23, 2023 11:01 AM AMBULATORY - PS[facility]CHIATRY [facility] Oct 27, 2023 08:00 AM AMBULATORY - MEDICINE [facility] [place]L [place] [facility] Oct 27, 2023 11:00 AM AMBULATORY - MEDICINE [facility] [place] Oct 30, 2023 06:00 PM AMBULATORY - MEDICINE [place] [facility] [place] [facility] Nov 07, 2023 10:00 AM AMBULATORY - MEDICINE [place] [facility] Nov 10, 2023 01:15 PM AMBULATORY - MEDICINE [facility] [place] [facility] Nov 13, 2023 12:00 PM AMBULATORY - MEDICINE [place] [facility] [place] [facility] Nov 20, 2023 11:00 AM AMBULATORY - MEDICINE [place] [facility] [place] [facility] Nov 27, 2023 11:00 AM AMBULATORY - MEDICINE [facility] [place] [place] [facility] Nov 28, 2023 11:00 AM AMBULATORY - MEDICINE [facility] [place] [place] [facility] Dec 04, 2023 01:00 PM AMBULATORY - NONE [place] [facility] [place] [facility] Dec 11, 2023 11:00 AM AMBULATORY - MEDICINE [place] [facility] [place] [place] [facility] Dec 12, 2023 09:00 AM AMBULATORY - MEDICINE [place] [facility] [place] [place] [facility] January 15, 2024 01:40 PM AMBULATORY - MEDICINE [place] C [place] [facility] January 22, 2024 08:30 AM AMBULATORY - MEDICINE [facility] Lab Results: +/- 30 days of [...] Range Comment Aug 21, 2023 10:03 AM [place] MICROSCOPIC AUTOMATED, URINE Specimen T ype: URINE Comment: If Glucose = >500 and Ketones are positive, please alert the Physician. Ordering Provider: MARIIA ABBOTT Report Released Date/Time: Aug 17, 2023 08:43 AM Reporting Lab: [facility] [address] [address] Performing Lab: [place] CNT WSTRN [address] [address] UA WBC 11-20 /[HPF] H 0-5 UA BACTERIA 1+ /[HPF] NoneObs UA RBC 0-2 /[HPF] 0-3 Aug 21, 2023 10:03 AM [place] URINALYSIS Specimen Type: URINE Comment: If Glucose = >500 and Ketones are positive, please alert the Physician. Ordering Provider: MARIIA ABBOTT Report Released Date/Time: Aug 17, 2023 08:43 AM Reporting Lab: [address] [address] Performing Lab: [address] [address] UA COLOR Light-Yellow Yellow UA APPEARANCE Clear Clear UA GLUCOSE 50 mg/dL Negative UA KETONES NEGATIVE mg/dL Negative UA BLOOD NEGATIVE mg/dL Negative UA PROTEIN NEGATIVE mg/dL Negative UA NITRITE NEGATIVE mg/dL Negative UA BILIRUBIN NEGATIVE mg/dL Negative UA SPECIFIC GRAVITY 1.015 L 1.016-1.02 2 UA pH 5.0 5.0-9.0 UA UROBILINOGEN <2.0 mg/dL <2.0 UA LEUKOCYTE SMALL Negative Aug 14, 2023 08:00 AM [place] VITAMIN D (25-OH) Specimen Type: SERUM No comment entered. Ordering Provider: MARIIA ABBOTT Report Released Date/Time: Jun 26, 2023 04:25 PM Reporting Lab: [address] [address] Performing Lab: [address] [address] VITAMIN D (25-OH) 23 ng/mL 20-50 Aug 14, 2023 08:00 AM [place] PSA Specimen Type: SERUM No comment entered. Ordering Provider: MARIIA ABBOTT Report Released Date/Time: Jun 26, 2023 04:25 PM Reporting Lab: [address] [address] Performing Lab: [address] [address] PSA 3.97 ng/mL 0.00-4.00 Aug 14, 2023 08:00 AM [place] BASIC METABOLIC PANEL (non-fasting) Spe cimen Type: SERUM No comment entered. Ordering Provider: MARIIA ABBOTT Report Released Date/Time: Jun 26, 2023 04:25 PM Reporting Lab: [address] [address] Performing Lab: [address] [address] UREA NITROGEN 26 mg/dL H 7-25 GLUCOSE 138 mg/dL H 65-100 SODIUM 138 mmol/L 135-145 POTASSIUM 4.3 mmol/L 3.5-5.0 CHLORIDE 100 mmol/L 100-110 CO2 29 meq/L 20-30 CREATININE, Serum 1.00 mg/dL 0.50-1.40 eGFR(CKD-EPI 2020) 78 mL/min >60 Aug 14, 2023 08:00 AM [place] MAGNESIUM Specimen Type: SERUM No comment entered. Ordering Provider: MARIIA ABBOTT Report Released Date/Time: Jun 26, 2023 04:30 PM Reporting Lab: [address] [address] Performing Lab: [address] [address] MAGNESIUM 1.8 mg/dL 1.6-2.6 Aug 14, 2023 08:00 AM [place] URINALYSIS Specimen Type: URINE Comment: If Glucose = >500 and Ketones are positive, please alert the Physician. Ordering Provider: MARIIA ABBOTT Report Released Date/Time: Jun 26, 2023 04:25 PM Reporting Lab: [address] [address] Performing Lab: [address] [address] UA COLOR Colorless Yellow UA APPEARANCE Turbid Clear UA GLUCOSE 70 mg/dL Negative UA KETONES NEGATIVE mg/dL Negative UA BLOOD NEGATIVE mg/dL Negative UA PROTEIN NEGATIVE mg/dL Negative UA NITRITE NEGATIVE mg/dL Negative UA BILIRUBIN NEGATIVE mg/dL Negative UA SPECIFIC GRAVITY 1.012 L 1.016-1.02 2 UA pH 6.5 5.0-9.0 UA UROBILINOGEN <2.0 mg/dL <2.0 UA LEUKOCYTE LARGE Negative Aug 14, 2023 08:00 AM [place] MICROSCOPIC AUTOMATED, URINE Specimen T ype: URINE Comment: If Glucose = >500 and Ketones are positive, please alert the Physician. Ordering Provider: MARIIA ABBOTT Report Released Date/Time: Jun 26, 2023 04:25 PM Reporting Lab: [facility] [address] [facility] [address] Performing Lab: [address] [address] UA WBC TNTC /[HPF] 0-5 UA BACTERIA 2+ /[HPF] NoneObs UA MUCUS FEW /[LPF] Trace UA RBC 21-50 /[HPF] H 0-3 Aug 14, 2023 08:00 AM [facility] HEMOGLOBIN A1C PANEL Specimen Type: BLOOD Comment: Values obtained from A1C measurements can vary. For atypical A1C assays, a reported value of 7.0 could actually be between 6.72 and 7.28 if measured by a reference method. A reported value of 9.0 could actually be between 8.73 and 9.27. Ref: http://www.ngs p.org/CAPdata. asp Ordering Provider: BRANDON ARMSTRONG Report Released Date/Time: Aug 07, 2023 11:12 AM Reporting Lab: [address] [address] Performing Lab: [address] [address] HEMOGLOBIN A1C 7.9 H 4.0-5.6 Aug 14, 2023 08:00 AM [facility] MICROALBUMIN CREATININE RATIO PANEL Specimen Type: URINE No comment entered. Ordering Provider: BRANDON ARMSTRONG Report Released Date/Time: Aug 07, 2023 11:12 AM Reporting Lab: [address] [address] Performing Lab: [facility] [address] [facility] [address] MICROALBUMIN/C REATININE RATIO 43.0 mg/g H 0-29.9 MICROALBUMIN,Q UANTITATIVE 2.0 mg/dL RR UNAVAIL CREATININE URINE 46.53 mg/dL Social History: Smoking Status (Most current) [...] 12, 2022 03:10 PM VA-TOBACCO NEVER USED [facility] Pathology Reports: +/- 30 days of [...] the Encounter. The data comes from all [place] treatment facilities. Date/Time Pathology Report Provider Source Aug 21, 2023 10:03 AM [place] MICROBIOLOGY RE PORT: Reporting Lab: [facility] [CLIA# [id number]] [address] [place] [address] Accession [UID]: [id number] [[id number]] Received: Aug 21, 2023@10:03 Collection sample: URINE CLEAN CATCH Collection date: Aug 21, 2023 10:03 Site/Specimen: URINE Provider: MARIIA BROUSSARD Test(s) ordered: URINE CULTURE(MWROX).......... completed: Aug 25, 2023 08:27 * BACTERIOLOGY FINAL REPORT => Aug 25, 2023 08:27 TECH CODE: [id number] Bacteriology Remark(s): NO GROWTH IN 24 HOURS, FINAL REPORT TO FOLLOW. <10,000 CFU/ML GRAM POSITIVE (NOT OTHERWISE SPECIFIED) =--=--=--=--=--=--=--=--=--=--=-- =--=--=--=--=--=--=--=--=--=--=-- =--=--=--=-- Performing Laboratory: Bacteriology Report Performed By: [facility] [CLIA# [id number]] [address] [place] [address] CHELSY TOBIAS [place] Encounter Notes: All associated encounter notes This section contains the clinical notes associated to the Encounter. Date/Time Encounter Note(s) Provider Source Aug 29, 2023 07:35 AM CARE COORDINATION HOME TELEHEALTH SUMMARIZATION NOTE: LOCAL TITLE: HT MONTHLY MONITOR NOTE STANDARD TITLE: CARE COORDINATION HOME TELEHEALTH SUMMARIZATION DATE OF NOTE: AUG 29, 2023@07:35 ENTRY DATE: AUG 29, 2023@07:35:21 AUTHOR: ALCIRA LAYNE EXP COSIGNER: URGENCY: STATUS: COMPLETED The [facility] is enrolled in the Home Telehealth (HT) program and continues to be monitored via HT technology. The data sent by the [facility] is reviewed and analyzed by the HT staff, who provide ongoing case management and [facility] health education while communicating and collaborating with the health care team as appropriate. This note covers a total of 30 minutes for the month monitored. Month monitored: August 2023 Dx: Hypertension /simone/ KAVITHA Albert, RN RPM-Home Telehealth Panel Gluer Signed: 08/29/2023 07:39 ALCIRA LAYNE [place] [facility]L W[facility]
--- OUTSIDE RECORDS SUMMARY | 2024-08-21 23:29 | XMS_ITS | Encounter Summary ---
Author Name [place] Address [address] [place] [address] Care Team Providers Care Lead Inspector Name Role Phone MARIIA BROUSSARD Primary [...] Patient's Relationship to Policy [employer]IP[employer] ([id number]) PRESCRIPT ION [facility] Mar 11, 2018 [id number] [phone] MADAI DELUNA OTHER RELATIONSHIP [facility] PREFERRED PROVIDER ORGANIZAT ION (PPO) Jun 11, 2011 [id number] MADAI DELUNA PATIENT [employer]NA [facility] (WNR) MEDICARE ADVANTAGE [facility] (WNR) Sep 11, 2022 [id number] [phone] [place] PATIENT MEDICARE (WNR) MEDICARE (M) PART A January 10, 2012 PART A [id number] MIKIE GILL PATIENT MEDICARE (WNR) MEDICARE (M) PART B January 10, 2012 PART B [id number] 41A GILL DELUNA PATIENT MEDICARE ([place]NR) MEDICARE (M) PART A January 10, 2012 PART A [id number] GILL DELUNA PATIENT UNICARE PREFERRED PROVIDER ORGANIZAT ION (PPO) [place] RE STATE INDE* * Mar 11, 2015 [id number] MADAI DELUNA SPOUSE [facility] (WNR) MEDICARE ADVANTAGE [facility] (WNR) Mar 11, 2021 [id number] GILL DELUNA PATIENT [facility] (WNR) MEDICARE ADVANTAGE [facility] (WNR) Sep 11, 2021 [id number] GILL DELUNA PATIENT Selected Encounter This section includes the information on record at [place] for the Encounter. Date/Time Encounter Type Encounter Description Reason Provider Source Oct 11, 2023 08:37 AM Outpatient Encounter HT NON-VIDEO MONITORING ICD-10-CM I10 Essential (primary) hypertension EDMOND MAO [facility] Encounter Template Text not used by [place] Assessments - Encounter Diagnoses This section includes the primary and secondary diagnoses documented for the Encounter. Date/Time Primary/Secondary Diagnosis Diagnosis Name Provider Source Oct 11, 2023 08:47 AM PRIMARY Essential (primary) hypertension EDMOND MAO [place] [facility] [facility] Plan of Treatment: Future Appointments (+ [...] 23, 2023 11:00 AM AMBULATORY - [place]RY [place] [facility] Oct 23, 2023 11:01 AM AMBULATORY - [place]IATRY [place] [facility] Oct 27, 2023 08:00 AM AMBULATORY - MEDICINE [facility] [place] [facility] Oct 27, 2023 11:00 AM AMBULATORY - MEDICINE [facility] Oct 30, 2023 06:00 PM AMBULATORY - MEDICINE [facility] [place] [facility] Nov 07, 2023 10:00 AM AMBULATORY - MEDICINE [facility] [place] [facility] Nov 10, 2023 01:15 PM AMBULATORY [facility] [place] [facility] Nov 13, 2023 12:00 PM AMBULATORY - MEDICINE [facility] [place] [facility] Nov 20, 2023 11:00 AM AMBULATORY - MEDICINE [facility] [place] [facility] Nov 27, 2023 11:00 AM AMBULATORY - MEDICINE [facility] [place] [facility] Nov 28, 2023 11:00 AM AMBULATORY - MEDICINE [facility] [place] [facility] Dec 04, 2023 01:00 PM AMBULATORY - NONE [facility] [place] [facility] Dec 11, 2023 11:00 AM AMBULATORY - MEDICINE [facility] [place] [facility] Dec 12, 2023 09:00 AM AMBULATORY - MEDICINE [facility] [place] [facility] January 15, 2024 01:40 PM AMBULATORY - MEDICINE [facility] [place] [facility] January 22, 2024 08:30 AM [facility] Mar 01, 2024 10:00 AM AMBULATORY - [place]ICINE [place] [facility] Lab Results: +/- 30 days of [...] Range Comment Nov 02, 2023 12:00 AM [place] OCCULT BLOOD FIT X1 SCREEN(IN-HOUSE) Sp ecimen Type: FECES No comment entered. Ordering Provider: MARIIA CABRAL Report Released Date/Time: Oct 27, 2023 12:56 PM Reporting Lab: [facility] WSTRN [address] [address] Performing Lab: [facility] WSN [address] [address] OCCULT BLOOD (FIT)#1 OF 1 Negative NEG [...] Encounter Note(s) Provider Source Oct 11, 2023 08:44 AM CARE COORDINATION HOME TELEHEALTH SUMMARIZATION NOTE: LOCAL TITLE: HT MONTHLY MONITOR NOTE STANDARD TITLE: CARE COORDINATION HOME TELEHEALTH SUMMARIZATION DATE OF NOTE: OCT 11, 2023@08:44 ENTRY DATE: OCT 11, 2023@08:45:05 AUTHOR: LUCIANO MAO EXP COSIGNER: URGENCY: STATUS: COMPLETED The Bellamy is enrolled in the Home Telehealth (HT) program and continues to be monitored via HT technology. The data sent by the Bell[facility] is reviewed and analyzed by the HT staff, who provide ongoing case management and [facility] health education while communicating and collaborating with the health care team as appropriate. This note covers a total of 30 minutes for the month monitored. Month monitored: Sep 2023 DX:HTN /es/ Luciano Mao RN [facility]-Home Telehealth Hebrew Professor Signed: 10/11/2023 08:47 LUCIANO MAO [facility]
--- OUTSIDE RECORDS SUMMARY | 2024-08-21 23:29 | XMS_ITS | Encounter Summary ---
Author Name [place] Address [address] [place] [address] Care Team Providers Care Loft Patternmaker Name Role Phone MARIIA BROUSSARD Primary Care [...] Patient's Relationship to Policy [employer] ([id number]) PRESCRIPT ION [facility] Mar 11, 2018 [id number] MADAI DELUNA OTHER RELATIONSHIP [facility] PREFERRED PROVIDER ORGANIZAT ION (PPO) Jun 11, 2011 [id number] MADAI DLEUNA PATIENT [employer]MANA [facility] (WNR) MEDICARE ADVANTAGE [facility] (WNR) Sep 11, 2022 [id number] [phone] GILL DELUNA PATIENT MEDICARE (WNR) MEDICARE (M) PART A January 10, 2012 PART A [id number] [phone] MIKIE GILL PATIENT MEDICARE (WNR) MEDICARE (M) PART B January 10, 2012 PART B [id number] GILL DELUNA PATIENT MEDICARE (WNR) MEDICARE (M) PART A January 10, 2012 PART A [id number] [phone] GILL DELUNA PATIENT UNICARE PREFERRED PROVIDER ORGANIZAT ION (PPO) [place] RE STATE INDE* * Mar 11, 2015 [id number] MADAI DELUNA [facility] (WNR) MEDICARE ADVANTAGE [facility] (WNR) Mar 11, 2021 [id number] GILL DELUNA PATIENT [facility] (WNR) MEDICARE ADVANTAGE [facility] (WNR) Sep 11, 2021 [id number] [phone] GILL DELUNA PATIENT Selected Encounter This section includes the information on record at [place] for the Encounter. Date/Time Encounter Type Encounter Description Reason Pro vider Source Oct 27, 2023 11:00 AM Outpatient Encounter PRIMARY CARE/MEDICINE IHE Encounter [...] 30, 2023 06:00 PM AMBULATORY - MEDICINE [place] [facility] Nov 07, 2023 10:00 AM AMBULATORY - MEDICINE [place] [facility] [place] [facility] Nov 10, 2023 01:15 PM AMBULATORY - MEDICINE [place] [facility] [place] [facility] Nov 13, 2023 12:00 PM AMBULATORY - MEDICINE [place] [facility] [place] [facility] Nov 20, 2023 11:00 AM AMBULATORY - MEDICINE [place] [facility] [facility] Nov 27, 2023 11:00 AM AMBULATORY - MEDICINE [place] [facility] [facility] Nov 28, 2023 11:00 AM AMBULATORY - MEDICINE [place] [facility] [facility] Dec 04, 2023 01:00 PM AMBULATORY - NONE [place] [facility] [place] [facility] Dec 11, 2023 11:00 AM AMBULATORY - MEDICINE [place] [facility] [place] [facility] Dec 12, 2023 09:00 AM AMBULATORY - MEDICINE [place] [facility] [place] [facility] January 15, 2024 01:40 PM AMBULATORY - MEDICINE [place] [facility] [place] [facility] January 22, 2024 08:30 AM [facility] Mar 01, 2024 10:00 AM AMBULATORY - MEDICINE [facility] NTRL TRN [facility] Lab Results: +/- 30 days of [...] Range Comment Nov 02, 2023 12:00 AM [place] OCCULT BLOOD FIT X1 SCREEN(IN-HOUSE) Sp ecimen Type: FECES No comment entered. Ordering Provider: MARIIA CABRAL Report Released Date/Time: Oct 27, 2023 12:56 PM Reporting Lab: [facility] [address] [facility] [address] Performing Lab: [facility] [address] [address] OCCULT BLOOD (FIT)#1 OF 1 Negative NEG [...] 12, 2022 03:10 PM [facility]CO [facility] Encounter Notes: All associated encounter notes This section contains the clinical notes associated to the Encounter. Date/Time Encounter Note(s) Provider Source Oct 27, 2023 11:37 AM PREVENTIVE MEDICIN E NURSING NOTE: LOCAL TITLE: CLINICAL REMINDERS/NURSING STANDARD TITLE: PREVENTIVE MEDICINE NURSING NOTE DATE OF NOTE: OCT 27, 2023@11:37 ENTRY DATE: OCT 27, 2023@11:37:33 AUTHOR: ABDI ALMARAZ: URGENCY: STATUS: COMPLETED Alcohol Use Screen (AUDIT-C): Alcohol Screen: SCREEN FOR ALCOHOL (AUDIT-C) An alcohol screening test (AUDIT-C) was negative (score=0). 1. How often did you have a drink containing alcohol in the past year? Consider a drink to be a 12 ounce can or bottle of regular beer, 8 ounces of malt liquor, a 5 ounce glass of table wine, or a 1.5 ounce shot of liquor (like scotch, gin, or vodka). Never 2. How many drinks containing alcohol did you have on a typical day when you were drinking in the past year? Response not required due to responses to other questions. 3. How often did you have six or more drinks on one occasion in the past year? Response not required due to responses to other questions. RHS Screen: RHS Screen Environmental Check Upon inquiry, the individual reports that the environment is safe to proceed. Informed Consent to Screen and Document The individual consents to proceed with screening. The individual consents to documentation of responses. PRIMARY SCREEN: In the past 12 months, how often did a current or former intimate partner (e.g., boyfriend, girlfriend, , , sexual partner): 1. Scream or curse at you Never 2. Insult or talk down to you Never 3. Threaten you with harm Never 4. Physically hurt you Never 5. Force or pressure you to have sexual contact against your will, or when you were unable to say no Never ?? The HITS tool (items 1-4 above) is [place] copyright protected by John Nieto MD, and the user has full rights to use it throughout the [place] system. PRIMARY SCREEN RESULT: The Primary Screen is NEGATIVE. The individual answered never to all forms of IPV above (i.e., answered never to all 5 items) The individual accepts education and/or resources: No EDUCATION: The individual indicated readiness to learn. Education offered during this session as noted above. The individual indicated understanding by asking relevant questions and making appropriate comments. No barriers to learning were observed or identified. Advance Directive Screen MH AD: Patient has an up-to-date Advance Directive at an outside, non-va facility and was asked to forward a copy to his/her clinician. Comment: advised to bring copy /simone/ ABDI ALMARAZ LPN LPN Signed: 10/27/2023 11:40 ABDI ALMARAZ
--- OUTSIDE RECORDS SUMMARY | 2024-08-21 23:29 | XMS_ITS | Encounter Summary ---
Author Name [facility] [place] Address [address] [place] [address] Care Team Providers Care Disability Insurance Hearing Officer Name Role Phone MARIIA BROUSSARD Primary Care [...] Patient's Relationship to Policy [employer] ([id number]) PRESCRIPT ION [facility] Mar 11, 2018 [id number] [phone] MADAI DELUNA OTHER RELATIONSHIP [facility] PREFERRED PROVIDER ORGANIZAT ION (PPO) Jun 11, 2011 [id number] MADAI DELUNA PATIENT [facility] [facility] (WNR) MEDICARE ADVANTAGE [facility] (WNR) Sep 11, 2022 [id number] [phone] [place] PATIENT MEDICARE (WNR) MEDICARE (M) PART A January 10, 2012 PART A [id number] [phone] MIKIE GILL PATIENT MEDICARE (WNR) MEDICARE (M) PART B January 10, 2012 PART B [id number] MI[place]IE GILL PATIENT MEDICARE (WNR) MEDICARE (M) PART A January 10, 2012 PART A [id number] GILL DELUNA PATIENT UNICARE PREFERRED PROVIDER ORGANIZAT ION (PPO) [place] STATE INDE* * Mar 11, 2015 [id number] MADAI DELUNA [facility] (WNR) MEDICARE ADVANTAGE [facility] (WNR) Mar 11, 2021 [id number] GILL DELUNA PATIENT [facility] (WNR) MEDICARE ADVANTAGE [facility] (WNR) Sep 11, 2021 [id number] MIKIE GILL PATIENT Selected Encounter This section includes the information on record at [place] for the Encounter. Date/Time Encounter Type Encounter Description Reason Provider Source Oct 04, 2023 09:41 AM Outpatient Encounter CLINICAL PHARMACY ICD-10-CM E11.9 Type 2 diabetes mellitus without complications BEKA ALVARADO [facility] Encounter Template Text not used by [place] Assessments - Encounter Diagnoses This section includes the primary and secondary diagnoses documented for the Encounter. Date/Time Primary/Secondary Diagnosis Diagnosis Name Provider Source Oct 04, 2023 09:59 AM PRIMARY Type 2 diabetes mellitus without complications CHRISTIANOBEKA YBARRA MARIA LUISA [facility] Plan of Treatment: Future Appointments (+ [...] 23, 2023 11:00 AM [facility] Oct 23, 2023 11:01 AM AMBULATORY - PS[place]CHIATRY [place] [facility] Oct 27, 2023 08:00 AM [facility]ULAT[facility] Oct 27, 2023 11:00 AM AMBULATORY - MEDICINE [facility] Oct 30, 2023 06:00 PM AMBULATORY - MEDICINE [facility] [place] [place] [facility] Nov 07, 2023 10:00 AM AMBULATORY - MEDICINE [facility] [place] [facility] Nov 10, 2023 01:15 PM [...] - MEDICINE [facility] [place] [facility] Dec 04, 2023 01:00 PM AMBULATORY - NONE [facility] [place] [facility] Dec 11, 2023 11:00 AM AMBULATORY - MEDICINE [facility] [place] [facility] Dec 12, 2023 09:00 AM AMBULATORY - MEDICINE [place] C [place] [facility] January 15, 2024 01:40 PM AMBULATORY - MEDICINE [facility] [place] [facility] January 22, 2024 08:30 AM AMBULATORY - MEDICINE [facility] Mar 01, 2024 10:00 AM AMBULATORY - MEDICINE [place] C [place] [facility] Lab Results: +/- 30 days of the encounter This section includes the Chemistry and Hematology Lab Results on record with [place] for the patient. Radiology Reports and Pathology Reports are provided separately, in subsequent sections. Lab Results This section contains the Chemistry/Hematology Results that were resulted 30 days before or 30 daysafter the date of the Encounter. Date/Time Source Result Type Result - Unit Interpretation Reference Range Comment Nov 02, 2023 12:00 AM [place] OCCULT BLOOD FIT X1 SCREEN(IN-HOUSE) Sp ecimen Type: FECES No comment entered. Ordering Provider: MARIIA CABRAL Report Released Date/Time: Oct 27, 2023 12:56 PM Reporting Lab: [facility] WSTRN [address] [address] Performing Lab: [facility] [address] [address] OCCULT BLOOD (FIT)#1 OF 1 Negative NEG [...] 12, 2022 03:10 PM VA-TOBACCO NEVER USED [facility] Encounter Notes: All associated encounter notes This section contains the clinical notes associated to the Encounter. Date/Time Encounter Note(s) Provider Source Oct 04, 2023 09:41 AM MEDICATION MGT CON SULT: LOCAL TITLE: CONSULT REPORT/NON FORMULARY PADR STANDARD TITLE: MEDICATION MGT CONSULT DATE OF NOTE: OCT 04, 2023@09:41 ENTRY DATE: OCT 04, 2023@09:41:46 AUTHOR: BEKA ALVARADO EXP COSIGNER: URGENCY: STATUS: COMPLETED The medical record has been reviewed with regard to this restricted drug request. Medication requested: GLUCOSE SENSOR DEXCOM G7 Medication indication: DM II Medical history relevant to this request: 78 y/o with DM II that has been being monitored via a rocio 3 approved on 11/28/22. Per this consult is having trouble with the rocio 3 and provider wants to trial a Dexcom G7. is currently on basal / bolus insulin and followed by a CPP. ADD The request is approved until Sep 2024 - No formulary-preferred alternative /es/ BEKA ALVARADO III Pharm.D Clinical Pharmacy Provider Signed: 10/04/2023 09:59 BEKA ALVARADO III [facility]
--- OUTSIDE RECORDS SUMMARY | 2024-08-21 23:30 | XMS_ITS ---
Author Name [facility] [place] Organization [place] Address [address] [place] [address] Care Team Providers Care Sailing Instructor Name Role Phone MARIIA BROUSSARD Primary Care [...] Patient's Relationship to Policy Mancera EXPRESS SCRIPTS ([id number]) PRESCRIPT ION [facility] Mar 11, 2018 [id number] MADAI DELUNA OTHER RELATIONSHIP [facility] PREFERRED PROVIDER ORGANIZAT ION (PPO) Jun 11, 2011 [id number] MADAI DELUNA PATIENT HUMANA [facility] (WNR) MEDICARE ADVANTAGE [facility] (WNR) Sep 11, 2022 [id number] [phone] [place] PATIENT MEDICARE (WNR) MEDICARE (M) PART A January 10, 2012 PART A [id number] MI[place]IE GILL PATIENT MEDICARE (WNR) MEDICARE (M) PART B January 10, 2012 PART B [id number] GILL DELUNA PATIENT MEDICARE (WNR) MEDICARE (M) PART A January 10, 2012 PART A [id number] GILL DELUNA PATIENT UNICARE PREFERRED PROVIDER ORGANIZAT ION (PPO) [place] RE STATE INDE* * Mar 11, 2015 [id number] MADAI DELUNA [facility] (WNR) MEDICARE ADVANTAGE [facility] (WNR) Mar 11, 2021 [id number] GILL DELUNA PATIENT [facility] (WNR) MEDICARE ADVANTAGE [facility] (WNR) Sep 11, 2021 [id number] GILL DELUNA PATIENT Selected Encounter This section includes the information on record at [place] for the Encounter. Date/Time Encounter Type Encounter Description Reason Pro vider Source May 06, 2024 08:32 PM Outpatient Encounter PRIMARY CARE/MEDICINE IHE Encounter [...] - MEDICINE [place] [facility] Jun 11, 2024 08:30 AM AMBULATORY - MEDICINE [facility] Jun 18, 2024 02:15 PM AMBULATORY - MEDICINE [facility] Jun 20, 2024 10:45 AM AMBULATORY - MEDICINE [facility] Jul 03, 2024 09:30 AM AMBULATORY - MEDICINE [place] [facility] Jul 16, 2024 09:40 AM AMBULATORY - MEDICINE [place] [facility] Jul 31, 2024 02:00 PM AMBULATORY - MEDICINE [place] [facility] Aug 16, 2024 11:00 AM AMBULATORY - MEDICINE [place] [facility] Aug 22, 2024 01:00 PM AMBULATORY - MEDICINE [place] [facility] Aug 26, 2024 03:30 PM AMBULATORY - MEDICINE [place] [facility] Oct 17, 2024 01:00 PM AMBULATORY - MEDICINE [place] [facility] Oct 24, 2024 10:30 AM AMBULATORY - PSYCHIATRY [place] [facility] Oct 24, 2024 10:30 AM AMBULATORY - PS[place]IATRY [place] [facility] Oct 29, 2024 08:30 AM [...] 1 [facility] OUTPT IFC CT Cons Pin Game Machine Inspector's Choice [place] May 09, 2024 10:35 AM Consult Order COMMUNITY CARE-CARDIOLOGY Cons Pin Game Machine Inspector's [facility] Lab Results: +/- 30 days of [...] Range Comment May 07, 2024 08:37 AM [place] PSA Specimen Type: SERUM No comment entered. Ordering Provider: MARIIA ABBOTT Report Released Date/Time: May 04, 2024 12:14 AM Reporting Lab: [facility] WSTRN [address] [address] Performing Lab: [facility] W[facility] [address] [address] PSA 2.56 ng/mL 0.00-4.00 May 03, 2024 01:53 PM [place] BASIC METABOLIC PANEL (fasting) Specime n Type: SERUM No comment entered. Ordering Provider: MARIIA ABBOTT Report Released Date/Time: Oct 30, 2023 05:07 PM Reporting Lab: [address] [address] Performing Lab: [address] [address] UREA NITROGEN 46 mg/dL H 7-25 GLUCOSE 294 mg/dL H 65-100 SODIUM 137 mmol/L 135-145 POTASSIUM 4.4 mmol/L 3.5-5.0 CHLORIDE 105 mmol/L 100-110 CO2 21 meq/L 20-30 CREATININE, Serum 1.05 mg/dL 0.50-1.40 eGFR(CKD-EPI 2020) 73 mL/min >60 May 03, 2024 01:53 PM [place] HEMOGLOBIN A1C PANEL Specimen Type: BLOOD Comment: [...] 30, 2023 05:07 PM Reporting Lab: [address] [address] Performing Lab: [address] [address] HEMOGLOBIN A1C 8.1 H 4.0-5.6 May 03, 2024 01:53 PM [place] LIPID PANEL FASTING Specimen Type: SERUM No comment entered. Ordering Provider: MARIIA ABBOTT Report Released Date/Time: Oct 30, 2023 05:07 PM Reporting Lab: [address] [address] Performing Lab: [address] [address] CHOLESTEROL 108 mg/dL TRIGLYCERIDE 79 mg/dL 0-150 LDL calculated 47 mg/dL 0-129 CHOL/HDL 2.4 HDL CHOLESTEROL 45 mg/dL 40-60 May 03, 2024 01:53 PM [place] LIVER FUNCTION Specimen Type: SERUM No comment entered. Ordering Provider: MARIIA ABBOTT Report Released Date/Time: Oct 30, 2023 05:07 PM Reporting Lab: [address] [address] Performing Lab: [address] [address] PROTEIN,TOTAL 7.3 g/dL 6.0-8.3 ALBUMIN 3.8 g/dL 3.5-5.0 ALKALINE PHOSPHATASE 73 U/L 40-150 AST 21 U/L 5-34 ALT 22 U/L BILIRUBIN, TOTAL 0.5 mg/dL 0.2-1.2 May 03, 2024 01:53 PM [place] TSH Specimen Type: SERUM No comment entered. Ordering Provider: MARIIA ABBOTT Report Released Date/Time: Oct 30, 2023 05:07 PM Reporting Lab: [address] [address] Performing Lab: [address] [address] TSH 1.73 u[IU]/mL 0.35-5.00 May 03, 2024 01:53 PM [place] MICROALBUMIN CREATININE RATIO PANEL Spe cimen Type: URINE No comment entered. Ordering Provider: MARIIA ABBOTT Report Released Date/Time: Oct 30, 2023 05:07 PM Reporting Lab: [address] [address] Performing Lab: [address] [address] MICROALBUMIN/C REATININE RATIO 128.4 mg/g H 0-29.9 MICROALBUMIN,Q UANTITATIVE 5.4 mg/dL RR UNAVAIL CREATININE URINE 42.05 mg/dL May 03, 2024 01:53 PM [place] VITAMIN D (25-OH) Specimen Type: SERUM No comment entered. Ordering Provider: MARIIA ABBOTT Report Released Date/Time: Oct 30, 2023 05:07 PM Reporting Lab: [address] [address] Performing Lab: [address] [address] VITAMIN D (25-OH) 24 ng/mL 20-50 May 03, 2024 01:53 PM [place] CALCIUM Specimen Type: SERUM No comment entered. Ordering Provider: MARIIA ABBOTT Report Released Date/Time: Oct 30, 2023 05:07 PM Reporting Lab: [address] [address] Performing Lab: [address] [address] CALCIUM 9.7 mg/dL 8.5-10.2 May 03, 2024 01:53 PM [place] CBC AND DIFF (AUTO) Specimen Type: BLOOD No comment entered. Ordering Provider: MARIIA ABBOTT Report Released Date/Time: Oct 30, 2023 05:07 PM Reporting Lab: [address] [address] Performing Lab: [address] [address] WBC 6.25 10*3/uL 4.50-11.00 RBC 5.12 10*6/uL [...] 03, 2024 10:00 AM VA-TOBACCO NEVER USED [facility] Tobacco Use History This section includes a history of the smoking, or tobacco-related health factors, that were collected on or before the date of the Encounter. The data comes from the [place] facility where the Encounter took place. Date/Time Smoking Status/Tobacco Use Comment F del Dec 12, 2022 03:10 PM VA-TOBACCO NEVER USED [facility] Encounter Notes: All associated encounter notes This section contains the clinical notes associated to the Encounter. Date/Time Encounter Note(s) Provider Source May 06, 2024 07:32 AM PRIMARY CARE [employer] E MESSAGING: LOCAL TITLE: PRIMARY CARE SECURE MESSAGING STANDARD TITLE: PRIMARY CARE SECURE MESSAGING DATE OF NOTE: MAY 06, 2024@07:32 ENTRY DATE: MAY 06, 2024@08:32:36 AUTHOR: LORETA SINGLETARY EXP COSIGNER: URGENCY: STATUS: COMPLETED PRIMARY CARE SECURE MESSAGING Has ADDENDA ------Original Message ----- Sent: 05/03/2024 05:02 PM ET From: GILL DELUNA To: BOBO,O_PRIM TRICIA CARE_SPOPC Subject: Appointment:post surgery proctectomy appoint I have an appointment on May 30 which I need to reschedule since I will not be in [place] I was at the [facility] in [place] today to get some lab work done, one of which was a PSA post surgery. But because it was not ordered Bear was not able to do it officially BUT he did take the test and he just needs to have someone send the order and he can submit it I went to the counter and the person who waited on me would not send the request to a doctor there to make the request. I also need a refill for my Lorazepam .5mg which I would get from Michelle Sheriff who is no longer with the [place] and I have not yet been able to request a new MH person And lastly I need a new Chardio consult since my last one while I was dealing with the prostrate thank you for your help silviano deluna /simone/ LORETA DAMICO Signed: 05/06/2024 08:32 Receipt Acknowledged By: 05/08/2024 10:30 /simone/ ABDI ALMARAZ LPN LPN 05/08/2024 10:38 /es/ ZAID ODONNELL RN REGISTERED NURSE 05/08/2024 ADDENDUM STATUS: COMPLETED Response sent via Secure Message: , The request for Lorazepam has been sent to the Mental Health Department. The Cardiology consult that we have on file for you, doesn't until Date: 2024-07-13 /essence ALMARAZ LPN LPN Signed: 05/08/2024 10:18 LORETA SINGLETARY [facility]
--- OUTSIDE RECORDS SUMMARY | 2024-08-21 23:30 | XMS_ITS | Encounter Summary ---
Author Name [facility] [place] Address [address] [place] [address] Care Team Providers Care Telemarketing Manager Name Role Phone MARIIA BROUSSARD Primary [...] Patient's Relationship to Policy Mancera EXPRESS SCRIPTS ([id number]) PRESCRIPT ION [facility] Mar 11, 2018 [id number] MADAI DELUNA OTHER RELATIONSHIP [facility] PREFERRED PROVIDER ORGANIZAT ION (PPO) Jun 11, 2011 [id number] MADAI DELUNA PATIENT HUMANA [facility] (WNR) MEDICARE ADVANTAGE [facility] (WNR) Sep 11, 2022 [id number] [phone] GILL DELUNA PATIENT MEDICARE (WNR) MEDICARE (M) PART A January 10, 2012 PART A [id number] [place] PATIENT MEDICARE (WNR) MEDICARE (M) PART B January 10, 2012 PART B [id number] 41A GILL DLEUNA PATIENT MEDICARE (WNR) MEDICARE (M) PART A January 10, 2012 PART A [id number] GILL DELUNA PATIENT UNICARE PREFERRED PROVIDER ORGANIZAT ION (PPO) CRISTHIAN RE STATE THUYE* * Mar 11, 2015 [id number] MADAI DELUNA [facility] (WNR) MEDICARE ADVANTAGE [facility] (WNR) Mar 11, 2021 [id number] GILL DELUNA PATIENT [facility] (WNR) MEDICARE ADVANTAGE [facility] (WNR) Sep 11, 2021 [id number] [phone] MIKIE GILL PATIENT Selected Encounter This section includes the information on record at [place] for the Encounter. Date/Time Encounter Type Encounter Description Reason Pro vider Source May 07, 2024 01:35 PM Outpatient Encounter TELEPHONE/MEDICINE IHE Encounter Template Text not used by [...] 16, 2024 11:30 AM AMBULATORY - MEDICINE [place] [facility] Jun 11, 2024 08:30 AM [facility] Jun 18, 2024 02:15 PM [facility] Jun 20, 2024 10:45 AM [facility] Jul 03, 2024 09:30 AM AMBULATORY - MEDICINE [place] [facility] Jul 16, 2024 09:40 AM AMBULATORY - MEDICINE [place] [facility] Jul 31, 2024 02:00 PM AMBULATORY - MEDICINE [place] [facility] Aug 16, 2024 11:00 AM AMBULATORY - MEDICINE [place] [facility] Aug 22, 2024 01:00 PM AMBULATORY - MEDICINE [place] [facility] Aug 26, 2024 03:30 PM AMBULATORY - MEDICINE [place] [facility] Oct 17, 2024 01:00 PM AMBULATORY - MEDICINE [place] [facility] Oct 24, 2024 10:30 AM AMBULATORY - PSYCHIATRY [place] [facility] Oct 24, 2024 10:30 AM AMBULATORY [place] [facility] Oct 29, 2024 08:30 AM [...] of theEncounter. The data comes from all [place] treatment facilities. Test Date/Time Test Type Test Details Facility Name May 03, 2024 03:01 PM Consult Order VISN 1 [facility] PSYCHIATRY OUTPT IFC CT Cons Still Operator G[facility] [facility] May 09, 2024 10:35 AM Consult Order COMMUNITY CARE-CARDIOLOGY Cons Still Operator [facility] Lab Results: +/- 30 days of the [...] Range Comment May 07, 2024 08:37 AM [facility] PSA Specimen Type: SERUM No comment entered. Ordering Provider: MARIIA ABBOTT Report Released Date/Time: May 04, 2024 12:14 AM Reporting Lab: [facility] [address] [address] Performing Lab: [facility] [address] [address] PSA 2.56 ng/mL 0.00-4.00 May 03, 2024 01:53 PM [facility] BASIC METABOLIC PANEL (fasting) Specime n Type: SERUM No comment entered. Ordering Provider: MARIIA ABBOTT Report Released Date/Time: Oct 30, 2023 05:07 PM Reporting Lab: [address] [address] Performing Lab: [address] [address] UREA NITROGEN 46 mg/dL H 7-25 GLUCOSE 294 mg/dL H 65-100 SODIUM 137 mmol/L 135-145 POTASSIUM 4.4 mmol/L 3.5-5.0 CHLORIDE 105 mmol/L 100-110 CO2 21 meq/L 20-30 CREATININE, Serum 1.05 mg/dL 0.50-1.40 eGFR(CKD-EPI 2020) 73 mL/min >60 May 03, 2024 01:53 PM [facility] HEMOGLOBIN A1C PANEL Specimen Type: BLOOD Comment: [...] Oct 30, 2023 05:07 PM Reporting Lab: [address] [address] Performing Lab: [address] [address] HEMOGLOBIN A1C 8.1 H 4.0-5.6 May 03, 2024 01:53 PM [facility] LIPID PANEL FASTING Specimen Type: SERUM No comment entered. Ordering Provider: MARIIA ABBOTT Report Released Date/Time: Oct 30, 2023 05:07 PM Reporting Lab: [address] [address] Performing Lab: [address] [address] CHOLESTEROL 108 mg/dL TRIGLYCERIDE 79 mg/dL 0-150 LDL calculated 47 mg/dL 0-129 CHOL/HDL 2.4 HDL CHOLESTEROL 45 mg/dL 40-60 May 03, 2024 01:53 PM [facility] LIVER FUNCTION Specimen Type: SERUM No comment entered. Ordering Provider: MARIIA ABBOTT Report Released Date/Time: Oct 30, 2023 05:07 PM Reporting Lab[facility] [address] [facility] [address] Performing Lab: [address] [address] PROTEIN,TOTAL 7.3 g/dL 6.0-8.3 ALBUMIN 3.8 g/dL 3.5-5.0 ALKALINE PHOSPHATASE 73 U/L 40-150 AST 21 U/L 5-34 ALT 22 U/L BILIRUBIN, TOTAL 0.5 mg/dL 0.2-1.2 May 03, 2024 01:53 PM [facility] TSH Specimen Type: SERUM No comment entered. Ordering Provider: MARIIA ABBOTT Report Released Date/Time: Oct 30, 2023 05:07 PM Reporting Lab: [facility] [address] [address] Performing Lab: [facility] [address] [address] TSH 1.73 u[IU]/mL 0.35-5.00 May 03, 2024 01:53 PM [facility] VITAMIN D (25-OH) Specimen Type: SERUM No comment entered. Ordering Provider: MARIIA ABBOTT Report Released Date/Time: Oct 30, 2023 05:07 PM Reporting Lab: [facility] [address] [address] Performing [facility]: [facility] [address] [address] VITAMIN D (25-OH) 24 ng/mL 20-50 May 03, 2024 01:53 PM [facility] MICROALBUMIN CREATININE RATIO PANEL Spe cimen Type: URINE No comment entered. Ordering Provider: MARIIA ABBOTT Report Released Date/Time: Oct 30, 2023 05:07 PM Reporting Lab: [facility] [address] Performing Lab: [address] [address] MICROALBUMIN/C REATININE RATIO 128.4 mg/g H 0-29.9 MICROALBUMIN,Q UANTITATIVE 5.4 mg/dL RR UNAVAIL CREATININE URINE 42.05 mg/dL May 03, 2024 01:53 PM [facility] CALCIUM Specimen Type: SERUM No comment entered. Ordering Provider: MARIIA ABBOTT Report Released Date/Time: Oct 30, 2023 05:07 PM Reporting Lab: [address] [address] Performing Lab: [address] [address] CALCIUM 9.7 mg/dL 8.5-10.2 May 03, 2024 01:53 PM [facility] CBC AND DIFF (AUTO) Specimen Type: BLOOD No comment entered. Ordering Provider: MARIIA ABBOTT Report Released Date/Time: Oct 30, 2023 05:07 PM Reporting Lab: [address] [address] Performing Lab: [address] [address] WBC 6.25 10*3/uL 4.50-11.00 RBC 5.12 10*6/uL [...] 03, 2024 10:00 AM VA-TOBACCO NEVER USED [facility] Tobacco Use History This section includes a history of the smoking, or tobacco-related health factors, that were collected on or before the date of the Encounter. The data comes from the [place] facility where the Encounter took place. Date/Time Smoking Status/Tobacco Use Comment Edis mathis Dec 12, 2022 03:10 PM VA-TOBACCO NEVER USED [facility] Encounter Notes: All associated encounter notes This section contains the clinical notes associated to the Encounter. Date/Time Encounter Note(s) Provider Source May 07, 2024 01:35 PM CARE COORDINATION HOME TELEHEALTH FOLLOW-UP NOTE: LOCAL TITLE: HT INTERVENTION NOTE STANDARD TITLE: CARE COORDINATION HOME TELEHEALTH FOLLOW-UP NOTE DATE OF NOTE: MAY 07, 2024@13:35 ENTRY DATE: MAY 07, 2024@13:35:11 AUTHOR: ALCIRA LAYNE EXP COSIGNER: URGENCY: STATUS: COMPLETED GILL DELUNA [id number]) Vital Sign for: 04/08/2024 - 05/07/2024 (All times are EST; All weights are lbs) Primary DMP: VHA-HTN Comorbid(s): Summary Weight Sys BP Barnett BP HR Pain High 174.4 156 85 107 Low 164.6 107 58 42 Average 169.7 129 72 82 Date Time Wt Time Sys Barnett Time HR Time Pain 05/06/2024 - 23:55 130/81 23:55 97 05/06/2024 17:25 172.0 17:24 145/82 17:24 76 05/06/2024 00:40 174.4 00:39 156/74 00:39 48 05/05/2024 23:41 173.8 23:40 140/76 23:40 81 05/04/2024 - 20:02 128/74 20:02 95 05/04/2024 19:36 172.2 19:35 109/70 19:35 107 05/03/2024 13:03 169.2 13:02 147/76 13:02 96 05/02/2024 23:25 171.4 23:24 135/58 23:24 104 05/01/2024 22:16 170.2 22:15 136/76 22:15 42 04/27/2024 - 22:33 107/73 22:33 107 04/27/2024 17:06 170.2 17:05 129/78 17:05 74 04/27/2024 00:41 173.2 00:40 111/62 00:40 64 04/19/2024 23:47 170.0 23:47 125/74 23:47 96 04/18/2024 23:03 167.2 23:02 119/69 23:02 87 04/17/2024 21:39 165.8 21:38 112/63 21:38 91 04/16/2024 23:30 166.8 23:30 113/61 23:30 83 04/14/2024 23:16 164.6 23:15 131/65 23:15 43 04/12/2024 22:58 165.8 22:57 126/79 22:57 70 04/10/2024 22:36 168.4 22:36 155/85 22:36 91 Source: [employer], [employer]; [employer] Called ( identified by full name and date of ) to review data and assess for any symptoms, changes, questions or concerns. reports he is feeling well and doing well. Informed of normal PSA results, to which [place] was pleased to hear about, he states urologist told him his results should be around 2.5. [place] denies any urinary concerns at this time. [place] states he will now focus on cardiology, states he has called and scheduled an appointment, however, appointment is not until July 2025. Recommended to call cardiology at least weekly to see if there is any cancellations so he may get seen sooner. Expressed to concern about blood pressure and heart rate variability noted with HT data. agreed and stated I can't understand it...I feel fine. expressed appreciation for the call. Forwarding to provider for review only. TYPE OF ENCOUNTER: Telephone Length of call: less than 5 minutes /simone/ KAVITHA Albert, RN [facility]-Home Telehealth Farm Contractor Signed: 05/07/2024 13:40 ALCIRA LAYNE [facility]
--- OUTSIDE RECORDS SUMMARY | 2024-08-21 23:30 | XMS_ITS | Encounter Summary ---
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 Name Role Phone MARIIA BROUSSARD Primary [...] Patient's Relationship to Policy [employer] ([id number]) PRESCRIPT ION [facility] Mar 11, 2018 [id number] [phone] MADAI DELUNA OTHER RELATIONSHIP [facility] PREFERRED PROVIDER ORGANIZAT ION (PPO) Jun 11, 2011 [id number] [phone] MADAI DELUNA PATIENT [employer] MCR (WNR) MEDICARE ADVANTAGE MCR (WNR) Sep 11, 2022 [id number] [phone] [place] PATIENT MEDICARE (WNR) MEDICARE (M) PART A January 10, 2012 PART A [id number] [place] PATIENT MEDICARE (WNR) MEDICARE (M) PART B January 10, 2012 PART B [id number] [phone] [place] PATIENT MEDICARE (WNR) MEDICARE (M) PART A January 10, 2012 PART A [id number] GILL DELUNA PATIENT UNICARE PREFERRED PROVIDER ORGANIZAT ION (PPO) [facility] THUYE* * Mar 11, 2015 [id number] MADAI DELUNA SPOUSE [facility] (WNR) MEDICARE ADVANTAGE [facility] (WNR) Mar 11, 2021 [id number] [phone] [place] [facility]NA [facility] (WNR) MEDICARE ADVANTAGE [facility] (WNR) Sep 11, 2021 [id number] [phone] IOANA DELUNAAGUSTO PATIENT Selected Encounter This section includes the information on record at DC for the Encounter. Date/Time Encounter Type Encounter Description Reason Provider Source Aug 28, 2023 08:00 AM OFFICE O/P EST MOD 30-39 MIN PODIATRY ICD-10-CM L60.0 Ingrowing TEVIN Ortega Belle Encounter Template Text not used by DC Assessments - Encounter Diagnoses This section includes the primary and secondary diagnoses documented for the Encounter. Date/Time Primary/Secondary Diagnosis Diagnosis Name Provider Source Aug 28, 2023 08:22 AM PRIMARY Ingrowing TEVIN Ortega Aug 28, 2023 08:22 AM SECONDARY Type 2 diabetes w diabetic [...] 2023 10:45 AM AMBULATORY - MEDICINE [facility] [place] Oct 23, 2023 11:00 AM [facility] Oct 23, 2023 11:01 AM [facility] Oct 27, 2023 08:00 AM [facility]ULAT[facility]ICINE [facility] [place] [facility] Oct 27, 2023 11:00 AM [facility] Oct 30, 2023 06:00 PM AMBULATORY - MEDICINE [facility] [place] [facility] Nov 07, 2023 10:00 AM AMBULATORY - MEDICINE [facility] [place] [facility] Nov 10, 2023 01:15 PM AMBULATORY - MEDICINE [facility] [place] [facility] Nov 13, 2023 12:00 PM AMBULATORY - MEDICINE [facility] [place] [facility] Nov 20, 2023 11:00 AM AMBULATORY - MEDICINE [facility] [place] [facility] Nov 27, 2023 11:00 AM AMBULATORY - MEDICINE [facility] [place] [facility] Nov 28, 2023 11:00 AM AMBULATORY - MEDICINE [facility] [place] [facility] Dec 04, 2023 01:00 PM AMBULATORY - NONE [facility] [place] [facility] Dec 11, 2023 11:00 AM AMBULATORY - MEDICINE [facility] [place] [facility] Dec 12, 2023 09:00 AM AMBULATORY - MEDICINE [facility] [place] [facility] January 15, 2024 01:40 PM AMBULATORY - MEDICINE [place] [facility] [place] [facility] January 22, 2024 08:30 [...] Range Comment Aug 21, 2023 10:03 AM [facility] MICROSCOPIC AUTOMATED, URINE Specimen T ype: URINE Comment: If Glucose = >500 and Ketones are positive, please alert the Physician. Ordering Provider: MRAIIA ABBOTT Report Released Date/Time: Aug 17, 2023 08:43 AM Reporting Lab: [place] [facility] [place] [address] [address] Performing Lab: [facility] [address] [facility] [address] UA WBC 11-20 /[HPF] H 0-5 UA BACTERIA 1+ /[HPF] NoneObs UA RBC 0-2 /[HPF] 0-3 Aug 21, 2023 10:03 AM [facility] URINALYSIS Specimen Type: URINE Comment: If Glucose = >500 and Ketones are positive, please alert the Physician. Ordering Provider: MARIIA ABBOTT Report Released Date/Time: Aug 17, 2023 08:43 AM Reporting Lab: [address] [address] Performing Lab: [address] [address] UA COLOR Light-Yellow Yellow UA APPEARANCE Clear Clear UA GLUCOSE 50 mg/dL Negative UA KETONES NEGATIVE mg/dL Negative UA BLOOD NEGATIVE mg/dL Negative UA PROTEIN NEGATIVE mg/dL Negative UA NITRITE NEGATIVE mg/dL Negative UA BILIRUBIN NEGATIVE mg/dL Negative UA SPECIFIC GRAVITY 1.015 L 1.016-1.02 2 UA pH 5.0 5.0-9.0 UA UROBILINOGEN <2.0 mg/dL <2.0 UA LEUKOCYTE SMALL Negative Aug 14, 2023 08:00 AM [facility] VITAMIN D (25-OH) Specimen Type: SERUM No comment entered. Ordering Provider: MARIIA ABBOTT Report Released Date/Time: Jun 26, 2023 04:25 PM Reporting Lab: [address] [address] Performing Lab: [address] [address] VITAMIN D (25-OH) 23 ng/mL 20-50 Aug 14, 2023 08:00 AM [facility] BASIC METABOLIC PANEL (non-fasting) Spe cimen Type: SERUM No comment entered. Ordering Provider: MARIIA ABBOTT Report Released Date/Time: Jun 26, 2023 04:25 PM Reporting Lab: [address] [address] Performing Lab: [address] [address] UREA NITROGEN 26 mg/dL H 7-25 GLUCOSE 138 mg/dL H 65-100 SODIUM 138 mmol/L 135-145 POTASSIUM 4.3 mmol/L 3.5-5.0 CHLORIDE 100 mmol/L 100-110 CO2 29 meq/L 20-30 CREATININE, Serum 1.00 mg/dL 0.50-1.40 eGFR(CKD-EPI 2020) 78 mL/min >60 Aug 14, 2023 08:00 AM [facility] PSA Specimen Type: SERUM No comment entered. Ordering Provider: MARIIA ABBOTT Report Released Date/Time: Jun 26, 2023 04:25 PM Reporting Lab: [address] [address] Performing Lab: [address] [address] PSA 3.97 ng/mL 0.00-4.00 Aug 14, 2023 08:00 AM [facility] MAGNESIUM Specimen Type: SERUM No comment entered. Ordering Provider: MARIIA ABBOTT Report Released Date/Time: Jun 26, 2023 04:30 PM Reporting Lab: [address] [address] Performing Lab: [address] [address] MAGNESIUM 1.8 mg/dL 1.6-2.6 Aug 14, 2023 08:00 AM [facility] URINALYSIS Specimen Type: URINE Comment: If Glucose = >500 and Ketones are positive, please alert the Physician. Ordering Provider: MARIIA ABBOTT Report Released Date/Time: Jun 26, 2023 04:25 PM Reporting Lab: [address] [address] Performing Lab: [address] [address] UA COLOR Colorless Yellow UA APPEARANCE Turbid Clear UA GLUCOSE 70 mg/dL Negative UA KETONES NEGATIVE mg/dL Negative UA BLOOD NEGATIVE mg/dL Negative UA PROTEIN NEGATIVE mg/dL Negative UA NITRITE NEGATIVE mg/dL Negative UA BILIRUBIN NEGATIVE mg/dL Negative UA SPECIFIC GRAVITY 1.012 L 1.016-1.02 2 UA pH 6.5 5.0-9.0 UA UROBILINOGEN <2.0 mg/dL <2.0 UA LEUKOCYTE LARGE Negative Aug 14, 2023 08:00 AM [facility] MICROSCOPIC AUTOMATED, URINE Specimen T ype: URINE Comment: If Glucose = >500 and Ketones are positive, please alert the Physician. Ordering Provider: MARIIA ABBOTT Report Released Date/Time: Jun 26, 2023 04:25 PM Reporting Lab: [facility] [address] [facility] [address] Performing Lab: [address] [address] UA WBC TNTC /[HPF] 0-5 UA BACTERIA 2+ /[HPF] NoneObs UA MUCUS FEW /[LPF] Trace UA RBC 21-50 /[HPF] H 0-3 Aug 14, 2023 08:00 AM [facility] MICROALBUMIN CREATININE RATIO PANEL Specimen Type: URINE No comment entered. Ordering Provider: BRANDON ARMSTRONG Report Released Date/Time: Aug 07, 2023 11:12 AM Reporting Lab: [facility] [address] [facility] [address] Performing Lab: [address] [address] MICROALBUMIN/C REATININE RATIO 43.0 mg/g H 0-29.9 MICROALBUMIN,Q UANTITATIVE 2.0 mg/dL RR UNAVAIL CREATININE URINE 46.53 mg/dL Aug 14, 2023 08:00 AM [facility] HEMOGLOBIN A1C PANEL Specimen Type: [...] Aug 07, 2023 11:12 AM Reporting Lab: [facility] [address] [facility] [address] Performing Lab: [facility] [address] [facility] [address] HEMOGLOBIN A1C 7.9 H 4.0-5.6 Social History: Smoking Status (Most current) and Tobacco Use (All prior to encounter date) This section includes the most current, and the historical, smoking and tobacco- related health factors from the [facility] where the Encounter took place. Current Smoking Status This section includes the most current smoking, or tobacco-related health factor, from the [place] facility where the Encounter took place. Date/Time Current Smoking Status Comment Facil it Jul 06, 2021 09:30 AM VA-TOBACCO NEVER USED [facility] Tobacco Use History This section includes a history of the smoking, or tobacco-related health factors, that were collected on or before the date of the Encounter. The data comes from the [place] facility where the Encounter took place. Date/Time Smoking Status/Tobacco Use Comment F acility Apr 30, 2020 01:00 PM VA-TOBACCO FORMER USER [facility] Apr 30, 2020 01:00 PM VA-TOBACCO QUIT 15 YRS OR MORE [facility] January 09, 2019 02:16 PM VA-TOBACCO FORMER USER [facility] January 09, 2019 02:16 PM VA-TOBACCO QUIT 15 YRS OR MORE [facility] Feb 13, 2018 11:05 AM QUIT TOBACCO USE > 7 YEARS AGO [facility] Feb 28, 2017 01:42 PM LIFETIME NON-TOBACCO USER quit 1976 [facility] Nov 17, 2015 09:53 AM QUIT TOBACCO USE > 7 YEARS AGO [facility] February 08, 2002 03:04 PM QUIT TOBACCO USE > 7 YEARS AGO Patient states he smoked from age [age] and quit. [facility] Aug 10, 2001 03:42 PM NON-TOBACCO USER Stopped tobacco 35 years ago [facility] Pathology Reports: +/- 30 days of the [...] the Encounter. The data comes from all [place] treatment facilities. Date/Time Pathology Report Provider Source Aug 21, 2023 10:03 AM [facility] MICROBIOLOGY RE PORT: Reporting Lab: [facility] [CLIA# [id number]] [address] [place] [address] Accession [UID]: [id number] [[id number]] Received: Aug 21, 2023@10:03 Collection sample: URINE CLEAN CATCH Collection date: Aug 21, 2023 10:03 Site/Specimen: URINE Provider: MARIIA BROUSSARD Test(s) ordered: URINE CULTURE([facility]).......... completed: Aug 25, 2023 08:27 * BACTERIOLOGY FINAL REPORT => Aug 25, 2023 08:27 TECH CODE: [id number] Bacteriology Remark(s): NO GROWTH IN 24 HOURS, FINAL REPORT TO FOLLOW. <10,000 CFU/ML GRAM POSITIVE (NOT OTHERWISE SPECIFIED) =--=--=--=--=--=--=--=--=--=--=-- =--=--=--=--=--=--=--=--=--=--=-- =--=--=--=-- Performing Laboratory: Bacteriology Report Performed By: [facility] [CLIA# [id number]] [address] [place] [address] [facility] Encounter Notes: All associated encounter notes This section contains the clinical notes associated to the Encounter. Date/Time Encounter Note(s) Provider Source Aug 28, 2023 08:34 AM PODIATRY NOTE: LOCAL TITLE: PODIATRY PAVE FOOT EXAM STANDARD TITLE: PODIATRY NOTE DATE OF NOTE: AUG 28, 2023@08:34 ENTRY DATE: AUG 28, 2023@08:34:18 AUTHOR: TEVIN SHAY COSIGNER: URGENCY: STATUS: COMPLETED PAVE FOOT EXAM A foot risk level was completed. The following risk level was identified for this patient: +POD RISK SCORE+ *--LEVEL 3 - (HIGH RISK)* ANY of the following: Severe obstructive peripheral arterial disease Ulceration; OR history of ulceration, osteomyelitis, or amputation Charcot joint w/foot deformity Chronic kidney disease, stage 4 or higher (Decreased sensation, foot deformity, and minor foot infection may be present or absent) LEVEL 3 FOOT EDUCATION: 1. Advised patient that extra depth footwear with soft molded inserts and braces may be required. 2. Advised patient not to walk barefoot. Instructed the patient to pay close attention to the style and fit of shoes. 3. Explained the importance of daily foot checks. Explained that loss of sensation leads to callouses. Callouses break down, which result in ulcers that may lead to gangrene and amputation. 4. Stressed the importance of daily foot hygiene. Warm (not hot) bathing of the feet, complete drying and thorough inspection for changes in the condition of the skin constitute daily foot care. Demonstrated how to do a thorough foot check. 5. Emphasized the use of clean, non-restrictive socks/stockings and well fitting shoes. 6. Stressed the importance of immediate follow-up of any foot injuries or ulcers. Explained that he/she should be non-weight bearing whenever there are lesions on the foot, to prevent cellular damage. Level of Understanding: Good Patient/Family Response to Foot Care Teaching Patient walks barefoot: A few times per month Patient/caregiver able to clean feet at least once daily: Yes Patient/caregiver has difficulty examining feet: No /simone/ TEVIN SHAY DPM PIGMENT WEIGHER Signed: 08/28/2023 08:34 TEVIN SHAY Aug 28, 2023 07:46 AM PODIATRY NOTE: LOCAL TITLE: PODIATRY NOTE STANDARD TITLE: PODIATRY NOTE DATE OF NOTE: AUG 28, 2023@07:46 ENTRY DATE: AUG 28, 2023@07:46:15 AUTHOR: TEVIN SHAY EXP COSIGNER: URGENCY: STATUS: COMPLETED PODIATRY NOTE Has ADDENDA NOTE: PATIENT HAS HAS RECEIVED BOTH COVID-19 VACCINE DOSES +2 BOOSTERS AT [facility] LAST SEEN: 02/28/2023 S: Pt. is a 78 yo alert [...] NEEDED. *NOTE: A1c =7.9 (LAST SEEN: 08/2023) MOV=588VA RISK=2 HEIGHT:200.5 lb [91.1 kg] (07/12/2017 09:07) [...] present physical-medical status. Protective sensation utilizing a [place]Germaine lOg monofilament is 10/10 bilateral. Exams are reviewed and noted to be unchanged since last visit and determined to be non-contributory to the cc . *NOTE: *YEARLY COMPLETE PAVE EXAM PERFORMED TODAY - SEE B*YEARLY COMPLETE PAVE EXAM PERFORMED TODAY - SEE BELOW. A: Clinical Impression is painful onychocryptic nails & hyperkeratosis of th eheelsas noted above in the presence of DM-NEUROPATHY. P: Treatment consists of trimming-reduction of all [...] tips for utilization between visits. RTC 24 WEEKS(01/21 @ 8:30AM) *REVIEWED HOME FOOT CARE FEET ARE IN EXCELLENT CONDITION AND I PROVIDED HIM WITH WRITTEN RECOMMENDATIONS FOR FOOT CARE TO BE REVIEWED AT HOME (FOOT CARE TIPS). *DISCUSSED NEW PROTOCOLS AND CALLED LIEN FOR RESCHEDULING TODAY I DISCUSSED THE FINDINGS & PLAN WITH PATIENT (UNCHANGED SINCE PREVIOUS VISIT) & PATIENT AGREES AND UNDERSTANDS PLAN * NOT IN NEED OF MIRROR Medication Reconciliation: PERFORMED TODAY - SEE BELOW. [...] Remote Allergy/ADR Data available for this patient [facility] LISINOPRIL [facility] METFORMIN [facility] NIFEDIPINE Med Recon NoGlossary (Tool #1) INCLUDED IN THIS LIST: Alphabetical list of active outpatient prescriptions dispensed from this VA (local) and dispensed from another DC or DoD facility (remote) as well as inpatient orders (local pending and active), local clinic medications, locally documented non-VA medications, and local prescriptions that have or been discontinued in the past 90 days. Non-VA Meds Last Documented On: Dec 22, 2020 NOTE The display of VA prescriptions dispensed from another VA or DoD facility (remote) is limited to active outpatient prescription entries matched to National Drug File at the originating site and may not include some items such as investigational drugs, compounds, etc. NOT INCLUDED IN THIS LIST: Medications self-entered by the patient into personal health records (i.e. TweetUp) are NOT included in this list. Non-VA medications documented outside this VA, remote inpatient orders (regardless of status) and remote clinic medications are NOT included in this list. The patient and provider must always discuss medications the patient is taking, regardless of where the medication was dispensed or obtained. OUTPT CARBOXYMETHYLCELLULOSE NA 0.5% OPH SOLN (Status = Active) INSTILL 1 DROP INTO EACH EYE THREE TIMES A DAY Rx# [id number] Last Released: 08/25/23 Qty/Days Supply: Rx Expiration Date: 11/08/23 Refills Remainin OUTPT CARVEDILOL 6.25MG TAB (Status = Discontinued) TAKE ONE TABLET BY MOUTH TWICE DAILY FOR HIGH BLOOD PRESSURE Rx# [id number] Last Released: Supply: Rx Expiration Date: 01/20/24 Refills Remainin Indication: FOR HIGH BLOOD PRESSURE OUTPT CHLORTHALIDONE 25MG TAB (Status = Discontinued) TAKE ONE TABLET BY MOUTH ONCE DAILY TO REMOVE FLUID/CONTROL BLOOD PRESSURE Rx# [id number] Last Released: 05/12/23 Qty/Days Supply: Rx Expiration Date: 02/23/24 Refills Remainin OUTPT CHLORTHALIDONE 25MG TAB (Status = Active) TAKE ONE TABLET BY MOUTH ONCE DAILY TO REMOVE FLUID/CONTROL BLOOD PRESSURE Rx# [id number] Last Released: 08/11/23 Qty/Days Supply: Rx Expiration Date: 08/07/24 Refills Remainin OUTPT CLONIDINE HCL 0.1MG TAB (Status = Active) TAKE ONE TABLET BY MOUTH DAILY TO CONTROL BLOOD PRESSURE Rx# [id number] Last Released: 06/28/23 Qty/Days Supply: Rx Expiration Date: 09/03/23 Refills Remainin OUTPT DEXTROSE 24GM/31GM SQUEEZE TUBE (Status = Active) 1 TUBE BY MOUTH NEEDED FOR LOW BLOOD SUGAR Rx# [id number] Last Released: 07/05/23 Qty/Days Supply: 12/08 Rx Expiration Date: 01/31/24 Refills Remainin Indication: FOR LOW BLOOD SUGAR OUTPT EMPAGLIFLOZIN 25MG TAB (Status = Discontinued) TAKE ONE-HALF TABLET BY MOUTH ONCE DAILY FOR DIABETES Rx# [id number] Last Released: 04/04/23 Qty/Days Supply: Rx Expiration Date: 01/13/24 Refills Remainin OUTPT FINASTERIDE 5MG TAB (Status = Discontinued) TAKE ONE TABLET BY MOUTH ONCE DAILY FOR PROSTATE Rx# [id number] Last Released: 06/28/23 QtyDays Supply: Rx Expiration Date: 06/30/23 Refills Remainin OUTPT FINASTERIDE 5MG TAB (Status = Active/Suspended) TAKE ONE TABLET BY MOUTH ONCE DAILY FOR PROSTATE Rx# [id number] Last Released: Supply: Rx Expiration Date: 08/07/24 Refills Remainin Non-VA FLUTICASONE NASAL SOLN,NASAL INSTILL INTO EACH NOSTRIL Non-VA medication not recommended by VA provider. OUTPT INSULIN,ASPART(EQV-NOVLG)100UN/ML FLXPEN (Status = Active) INJECT DIRECTED SUBCUTANEOUSLY THREE TIMES A DAY ACCORDING TO ICR OF 1 UNIT FOR EACH 9 GRAMS OF CARBS BEFORE BREAKFAST AND LUNCH AND 1 UNIT FOR EACH 10 GRAMS OF CARBS BEFORE DINNER MEAL Rx# [id number] Last Released: 08/23/23 QtyDays Supply: Rx Expiration Date: 11/22/23 Refills Remainin Indication: FOR DIABETES OUTPT INSULIN,GLARGINE-YFGN 100UNIT/ML PEN 3ML (Status = Discontinued) INJECT 22 UNITS SUBCUTANEOUSLY ONCE DAILY Rx# [id number] Last Released: Supply: Rx Expiration Date: 01/13/24 Refills Remainin Indication: FOR DIABETES OUTPT INSULIN,GLARGINE-YFGN 100UNIT/ML PEN 3ML (Status = Active/Suspended) INJECT 18 UNITS SUBCUTANEOUSLY ONCE DAILY Rx# [id number] Last Released: 08/28/23 Qty/Days Supply: Rx Expiration Date: 08/23/24 Refills Remainin Indication: FOR DIABETES OUTPT LORAZEPAM 0.5MG TAB (Status = Active) TAKE ONE TABLET BY MOUTH ONCE DAILY FOR ANXIETY Rx# [id number] Last Released: 05/18/23 Qty/Days Supply: 06/20 Rx Expiration Date: 11/08/23 Refills Remainin Indication: FOR ANXIETY OUTPT NITROFURANTOIN MONO/MACRO 100MG SA CAP (Status = On Hold) TAKE ONE CAPSULE BY MOUTH TWICE DAILY FOR BACTERIAL URINARY TRACT INFECTION Rx# [id number] Last Released: Qt/Days Supply: 24/03 Rx Expiration Date: 09/17/23 Refills Remainin Indication: FOR BACTERIAL URINARY TRACT INFECTION OUTPT SEMAGLUTIDE 2MG/0.75ML INJ PEN 3ML (Status = Discontinued) INJECT 2MG SUBCUTANEOUSLY ONCE A WEEK FOR TYPE 2 DIABETES MELLITUS Rx# [id number] Last Released: 07/12/23 Qty/Days Supply: 10/08 Rx Expiration Date: 05/09/24 Refills Remainin Indication: FOR TYPE 2 DIABETES MELLITUS OUTPT SEMAGLUTIDE 2MG/0.75ML INJ PEN 3ML (Status = Active) INJECT 2MG SUBCUTANEOUSLY ONCE A WEEK FOR TYPE 2 DIABETES MELLITUS Rx# [id number] Last Released: 08/23/23 Qty/Days Supply: 10/08 Rx Expiration Date: 08/04/24 Refills Remainin Indication: FOR TYPE 2 DIABETES MELLITUS OUTPT SILDENAFIL CITRATE 100MG TAB (Status = Active) TAKE ONE TABLET BY MOUTH ONCE DAILY NEEDED TAKE 1 HOUR PRIOR TO SEXUAL ACTIVITY Rx# [id number] Last Released: 04/11/23 Qty/Days Supply: 03/10 Rx Expiration Date: 12/13/23 Refills Remainin Indication: FOR ERECTILE DYSFUNCTION OUTPT VALSARTAN 320MG TAB (Status = Active) TAKE ONE TABLET BY MOUTH ONCE DAILY Rx# [id number] Last Released: 06/13/23 Qty/Days Supply: Rx Expiration Date: 05/17/24 Refills Remainin SUPPLIES OUTPT GLUCOSE SENSOR FREESTYLE IVETH 3 (Status = Active) USE 1 SENSOR DIRECTED EVERY 14 DAYS Rx# [id number] Last Released: 07/05/23 Qty/Days Supply: 11/08 Rx Expiration Date: 05/09/24 Refills Remainin OUTPT NEEDLE,PEN 31G,5MM (Status = Active) USE 1 NEEDLE SUBCUTANEOUSLY FOUR TIMES A DAY FOR USE WITH PEN DEVICE Rx# [id number] Last Released: 08/24/23 Qty/Days Supply: 400/90 Rx Expiration Date: 11/22/23 Refills Remainin /es/ TEVIN SHAY DPM PIGMENT WEIGHER Signed: 08/28/2023 08:22 08/28/2023 ADDENDUM STATUS: COMPLETED PAVE Foot Check: A complete foot check was completed at this encounter. VISUAL INSPECTION: Includes inspection for skin breaks, deformity, erythema, trauma, pallor on elevation, dependent rubor, nail deformities, extensive callus and pitting edema. Visual exam results: Normal Comment: NO GROSS ABNORMALITIES NOTED BILAT PEDAL PULSES: Includes palpation of dorsalis and posterior tibial pulses and signs/symptoms of vascular compromise like pain, pallor, parasthesia or paralysis. Absent: Comment: DP & PT PULSES ARE ABSENT BILATERAL SENSORY CHECK: Includes 10 gram Monofilament ([place]Germaine) test of sensation. Intact (Greater than or equal to 80% of sites checked) Abnormal (Less than 80% of sites checked): Intact Comment: VIBRATORY & MONOFILAMENT ARE WNL BILAT HIGH-RISK HIGH RISK FOOT EDUCATION: 1. Advised patient that extra depth footwear with soft molded inserts and braces may be required. 2. Advised patient not to walk barefoot. Instructed the patient to pay close attention to the style and fit of shoes. 3. Explained the importance of daily foot checks. Explained that loss of sensation leads to callouses. Callouses break down, which result in ulcers that may lead to gangrene and amputation. 4. Stressed the importance of daily foot hygiene. Warm (not hot) bathing of the feet, complete drying and thorough inspection for changes in the condition of the skin constitute daily foot care. Demonstrated how to do a thorough foot check. 5. Emphasized the use of clean, non-restrictive socks/stockings and well fitting shoes. 6. Stressed the importance of immediate follow-up of any foot injuries or ulcers. Explained that he/she should be non-weight bearing whenever there are lesions on the foot, to prevent cellular damage. Level of Understanding: Good Patient is established patient of Podiatry and/or Vascular Date last seen: 02/28/2023 /simone/ TEVIN SHAY DPM PIGMENT WEIGHER Signed: 08/28/2023 08:34 TEVIN SHAYFIELD
--- OUTSIDE RECORDS SUMMARY | 2024-08-21 23:30 | XMS_ITS | Encounter Summary ---
Author Name [facility] [place] Address [address] [place] [address] Care Team Providers Care Precision Devices Inspector/Tester Name Role Phone MARIIA BROUSSARD Primary Care [...] Patient's Relationship to Policy [employer] EXPRESS SCRIPTS ([id number]) PRESCRIPT ION [facility] Mar 11, 2018 [id number] MADAI DELUNA OTHER RELATIONSHIP [facility] PREFERRED PROVIDER ORGANIZAT ION (PPO) Jun 11, 2011 [id number] MADAI DELUNA PATIENT HUMANA [facility] (WNR) MEDICARE ADVANTAGE [facility] (WNR) Sep 11, 2022 [id number] [phone] MIKIEIGLL PATIENT MEDICARE (WNR) MEDICARE (M) PART A January 10, 2012 PART A [id number] MIKIE GILL PATIENT MEDICARE (WNR) MEDICARE (M) PART B January 10, 2012 PART B [id number] [phone] MIKIE GILL PATIENT MEDICARE (WNR) MEDICARE (M) PART A January 10, 2012 PART A [id number] GILL DELUNA PATIENT UNICARE PREFERRED PROVIDER ORGANIZAT ION (PPO) [facility] THUYE* * Mar 11, 2015 [id number] MADAI DELUNA SPOUSE [facility] (WNR) MEDICARE ADVANTAGE [facility] (WNR) Mar 11, 2021 [id number] GILL DELUNA PATIENT WELLCARE [facility] (WNR) MEDICARE ADVANTAGE [facility] (WNR) Sep 11, 2021 [id number] MIKIE GILL PATIENT Selected Encounter This section includes the information on record at [place] for the Encounter. Date/Time Encounter Type Encounter Description Reason Provider Source Aug 23, 2023 02:58 PM Outpatient Encounter CLINICAL PHARMACY KEESHA ARMSTRONG Encounter Template Text not used by [place] Plan of Treatment: Future Appointments (+ 6 months) and Future Tests (+/- 45 days) The Plan of Treatment section includes future care activities for the patient from all [place] treatmentfacilities. This section includes future appointments and future orders which are active, pending or scheduled. Future Appointments This section includes appointments that were scheduled to occur 6 months from the date of the Encounter, up to a maximum of 20 appointments. The data comes from all [place] treatment facilities. Appointment Date/Time Appointment Type Appointme nt Facility Name Aug 25, 2023 01:00 PM [facility]ORY [facility]ICINE [facility] Aug 28, 2023 08:00 AM AM[facility]ULATORY - MEDICINE [facility] Oct 02, 2023 10:45 AM AMBULATORY - MEDICINE [place] [facility] [place] [facility] Oct 23, 2023 11:00 AM AMBULATORY - PSYCHIATRY [place] [facility] [place] [facility] Oct 23, 2023 11:01 AM AMBULATORY - PSYCHIATRY [place] [facility] [place] [facility] Oct 27, 2023 08:00 AM AMBULATORY - MEDICINE [place] [facility] [place] [facility] Oct 27, 2023 11:00 AM [facility]ATORY - MEDICINE [facility] Oct 30, 2023 06:00 PM AMBULATORY - MEDICINE [place] [facility] [place] [facility] Nov 07, 2023 10:00 AM AMBULATORY - MEDICINE [place] [facility] [place] [facility] Nov 10, 2023 01:15 PM AMBULATORY - MEDICINE [place] [facility] [place] [facility] Nov 13, 2023 12:00 PM AMBULATORY - MEDICINE [place] [facility] [place] [facility] Nov 20, 2023 11:00 AM AMBULATORY - MEDICINE [place] [facility] [place] [facility] Nov 27, 2023 11:00 AM AMBULATORY - MEDICINE [place] [facility] [place] [facility] Nov 28, 2023 11:00 AM AMBULATORY - MEDICINE [place] [facility] [place] [facility] Dec 04, 2023 01:00 PM AMBULATORY - NONE [place] [facility] [place] [facility] Dec 11, 2023 11:00 AM AMBULATORY - MEDICINE [place] [facility] [place] [facility] Dec 12, 2023 09:00 AM AMBULATORY - MEDICINE [place] [facility] [place] [facility] January 15, 2024 01:40 PM AMBULATORY - MEDICINE [place] [facility] [place] [facility] January 22, 2024 08:30 AM AMBULATORY - MEDICINE [facility] Lab Results: +/- 30 days of the encounter This section includes the Chemistry and Hematology Lab Results on record with [place] for the patient. Radiology Reports and Pathology Reports are provided separately, in subsequent sections. Lab Results This section contains the Chemistry/Hematology Results that were resulted 30 days before or 30 daysafter the date of the Encounter. Date/Time Source Result Type Result - Unit Interpretation Reference Range Comment Aug 21, 2023 10:03 AM [place] MICROSCOPIC AUTOMATED, URINE Specimen T ype: URINE Comment: If Glucose = >500 and Ketones are positive, please alert the Physician. Ordering Provider: MARIIA ABBOTT Report Released Date/Time: Aug 17, 2023 08:43 AM Reporting Lab: [place] [facility] [address] [address] Performing Lab: [place] [facility] [address] [address] UA WBC 11-20 /[HPF] H 0-5 UA BACTERIA 1+ /[HPF] NoneObs UA RBC 0-2 /[HPF] 0-3 Aug 21, 2023 10:03 AM [facility] URINALYSIS Specimen Type: URINE Comment: If Glucose = >500 and Ketones are positive, please alert the Physician. Ordering Provider: MARIIA ABBOTT Report Released Date/Time: Aug 17, 2023 08:43 AM Reporting Lab: [address] [address] Performing Lab: [address] [address] UA COLOR Light-Yellow Yellow UA APPEARANCE Clear Clear UA GLUCOSE 50 mg/dL Negative UA KETONES NEGATIVE mg/dL Negative UA BLOOD NEGATIVE mg/dL Negative UA PROTEIN NEGATIVE mg/dL Negative UA NITRITE NEGATIVE mg/dL Negative UA BILIRUBIN NEGATIVE mg/dL Negative UA SPECIFIC GRAVITY 1.015 L 1.016-1.02 2 UA pH 5.0 5.0-9.0 UA UROBILINOGEN <2.0 mg/dL <2.0 UA LEUKOCYTE SMALL Negative Aug 14, 2023 08:00 AM [place] VITAMIN D (25-OH) Specimen Type: SERUM No comment entered. Ordering Provider: MARIIA ABBOTT Report Released Date/Time: Jun 26, 2023 04:25 PM Reporting Lab: [address] [address] Performing Lab: [address] [address] VITAMIN D (25-OH) 23 ng/mL 20-50 Aug 14, 2023 08:00 AM [place] PSA Specimen Type: SERUM No comment entered. Ordering Provider: MARIIA ABBOTT Report Released Date/Time: Jun 26, 2023 04:25 PM Reporting Lab: [address] [address] Performing Lab: [address] [address] PSA 3.97 ng/mL 0.00-4.00 Aug 14, 2023 08:00 AM [place] MAGNESIUM Specimen Type: SERUM No comment entered. Ordering Provider: MARIIA ABBOTT Report Released Date/Time: Jun 26, 2023 04:30 PM Reporting Lab: [address] [address] Performing Lab: [address] [address] MAGNESIUM 1.8 mg/dL 1.6-2.6 Aug 14, 2023 08:00 AM [place] BASIC METABOLIC PANEL (non-fasting) Spe cimen Type: SERUM No comment entered. Ordering Provider: MARIIA ABBOTT Report Released Date/Time: Jun 26, 2023 04:25 PM Reporting Lab: [address] [address] Performing Lab: [address] [address] UREA NITROGEN 26 mg/dL H 7-25 GLUCOSE 138 mg/dL H 65-100 SODIUM 138 mmol/L 135-145 POTASSIUM 4.3 mmol/L 3.5-5.0 CHLORIDE 100 mmol/L 100-110 CO2 29 meq/L 20-30 CREATININE, Serum 1.00 mg/dL 0.50-1.40 eGFR(CKD-EPI 2020) 78 mL/min >60 Aug 14, 2023 08:00 AM [place] URINALYSIS Specimen Type: URINE Comment: If Glucose = >500 and Ketones are positive, please alert the Physician. Ordering Provider: MARIIA ABBOTT Report Released Date/Time: Jun 26, 2023 04:25 PM Reporting Lab: [address] [address] Performing Lab: [address] [address] UA COLOR Colorless Yellow UA APPEARANCE Turbid Clear UA GLUCOSE 70 mg/dL Negative UA KETONES NEGATIVE mg/dL Negative UA BLOOD NEGATIVE mg/dL Negative UA PROTEIN NEGATIVE mg/dL Negative UA NITRITE NEGATIVE mg/dL Negative UA BILIRUBIN NEGATIVE mg/dL Negative UA SPECIFIC GRAVITY 1.012 L 1.016-1.02 2 UA pH 6.5 5.0-9.0 UA UROBILINOGEN <2.0 mg/dL <2.0 UA LEUKOCYTE LARGE Negative Aug 14, 2023 08:00 AM [place] MICROSCOPIC AUTOMATED, URINE Specimen T ype: URINE Comment: If Glucose = >500 and Ketones are positive, please alert the Physician. Ordering Provider: MARIIA ABBOTT Report Released Date/Time: Jun 26, 2023 04:25 PM Reporting Lab: [facility] [address] [address] Performing Lab: [facility] [address] [address] UA WBC TNTC /[HPF] 0-5 UA BACTERIA 2+ /[HPF] NoneObs UA MUCUS FEW /[LPF] Trace UA RBC 21-50 /[HPF] H 0-3 Aug 14, 2023 08:00 AM [facility] MICROALBUMIN CREATININE RATIO PANEL Specimen Type: URINE No comment entered. Ordering Provider: BRANDON ARMSTRONG Report Released Date/Time: Aug 07, 2023 11:12 AM Reporting Lab: [facility] [address] [address] Performing Lab: [facility] [address] [address] MICROALBUMIN/C REATININE RATIO 43.0 mg/g H 0-29.9 MICROALBUMIN,Q UANTITATIVE 2.0 mg/dL RR UNAVAIL CREATININE URINE 46.53 mg/dL Aug 14, 2023 08:00 AM [facility] HEMOGLOBIN A1C PANEL [...] Aug 07, 2023 11:12 AM Reporting Lab: [facility] [address] [address] Performing Lab: [address] [place] [address] HEMOGLOBIN A1C 7.9 H 4.0-5.6 Social History: Smoking Status (Most current) and Tobacco Use (All prior to encounter date) This section includes the most current, and the historical, smoking and tobacco- related health factors from the [place] facility where the Encounter took place. Current Smoking Status This section includes the most current smoking, or tobacco-related health factor, from the [place] facility where the Encounter took place. Date/Time Current Smoking Status Comment Facil ity Dec 12, 2022 03:10 PM VA-TOBACCO NEVER USED [facility] Pathology Reports: +/- 30 days of [...] the Encounter. The data comes from all [place] treatment facilities. Date/Time Pathology Report Provider Source Aug 21, 2023 10:03 AM [facility] MICROBIOLOGY RE PORT: Reporting Lab: [facility] [CLIA# [id number]] [address] [place] [address] Accession [UID]: [id number] [[id number]] Received: Aug 21, 2023@10:03 Collection sample: URINE CLEAN CATCH Collection date: Aug 21, 2023 10:03 Site/Specimen: URINE Provider: MARIIA BROUSSARD Test(s) ordered: URINE CULTURE(MWROX).......... completed: Aug 25, 2023 08:27 * BACTERIOLOGY FINAL REPORT => Aug 25, 2023 08:27 TECH CODE: [id number] Bacteriology Remark(s): NO GROWTH IN 24 HOURS, FINAL REPORT TO FOLLOW. <10,000 CFU/ML GRAM POSITIVE (NOT OTHERWISE SPECIFIED) =--=--=--=--=--=--=--=--=--=--=-- =--=--=--=--=--=--=--=--=--=--=-- =--=--=--=-- Performing Laboratory: Bacteriology Report Performed By: [facility] [CLIA# [id number]] [address] [place] [address] PIYUSHARIANATREYovani Garcia [place] Encounter Notes: All associated encounter notes This section contains the clinical notes associated to the Encounter. Date/Time Encounter Note(s) Provider Source Aug 23, 2023 02:58 PM PHARMACY SECURE MESSAGING: LOCAL TITLE: PHARMACY SECURE MESSAGING STANDARD TITLE: PHARMACY SECURE MESSAGING DATE OF NOTE: AUG 23, 2023@14:58 ENTRY DATE: AUG 23, 2023@14:58:32 AUTHOR: KEESHA ARMSTRONG EXP COSIGNER: URGENCY: STATUS: COMPLETED ------Original Message --------- Sent: 08/21/2023 09:12 PM ET From: GILL DELUNA To: CLINICAL PHARMACY_[facility]_PHARM Subject: Medication:meds renewal could you please renew the Insulin Glargine please thank you ed ------Original Message --------- Sent: 08/23/2023 02:58 PM ET From: KEESHA ARMSTRONG To: GILL DELUNA Subject: Medication:meds renewal NILAM Mr. Deluna I have renewed the insulin order for mail per request. thank you Keesha peña/ KEESHA ARMSTRONG CLINICAL DOUGH RAISER Signed: 08/23/2023 14:58 KEESHA ARMSTRONG [place] [facility]
--- OUTSIDE RECORDS SUMMARY | 2024-08-21 23:30 | XMS_ITS | Encounter Summary ---
Author Name [facility] [place] Organization [place] Address [address] [place] [address] Care Team Providers Care Tower Loader Operator Name Role Phone MARIIA BROUSSARD Primary [...] Patient's Relationship to Policy [employer] S[employer]IP[employer] ([id number]) PRESCRIPT ION [facility] Mar 11, 2018 [id number] MADAI DELUNA OTHER RELATIONSHIP [facility] PREFERRED PROVIDER ORGANIZAT ION (PPO) Jun 11, 2011 [id number] MADAI DELUNA PATIENT [facility]NA [facility] (WNR) MEDICARE ADVANTAGE [facility] (WNR) Sep 11, 2022 [id number] GILL DELUNA PATIENT MEDICARE (WNR) MEDICARE (M) PART A January 10, 2012 PART A [id number] 41A GILL DELUNA PATIENT MEDICARE (WNR) MEDICARE (M) PART B January 10, 2012 PART B [id number] 41A GILL DELUNA PATIENT MEDICARE (WNR) MEDICARE (M) PART A January 10, 2012 PART A [id number] [phone] GILL DELUNA PATIENT UNICARE PREFERRED PROVIDER ORGANIZAT ION (PPO) [facility]* * Mar 11, 2015 [id number] [facility] (WNR) MEDICARE ADVANTAGE [facility] (WNR) Mar 11, 2021 [id number] GILL DELUNA PATIENT WE[facility]ARE [facility] (WNR) MEDICARE ADVANTAGE [facility] (WNR) Sep 11, 2021 [id number] [phone] GILL DELUNA PATIENT Selected Encounter This section includes the information on record at [place] for the Encounter. Date/Time Encounter Type Encounter Description Reason Provider Source May 06, 2024 12:17 PM HC PRO PHONE CALL 5-10 MIN TELEPHONE/MEDICIN E ICD-10-CM R00.1 Bradycardia, unspecified LUCIANO MAO IHBelle Encounter Template Text not used by [place] Assessments - Encounter Diagnoses This section includes the primary and secondary diagnoses documented for the Encounter. Date/Time Primary/Secondary Diagnosis Diagnosis Name Provider Source May 06, 2024 12:17 PM PRIMARY Bradycardia, unspecified [facility] May 06, 2024 12:17 PM SECONDARY Hypertensive heart disease without heart failure EDMOND MAO [facility] Plan of Treatment: Future Appointments (+ [...] 16, 2024 11:30 AM [facility] Jun 11, 2024 08:30 AM AMBULATORY - MEDICINE [facility] Jun 18, 2024 02:15 PM [facility] Jun 20, 2024 10:45 AM [facility] Jul 03, 2024 09:30 AM AMBULATORY [facility]IC[facility] [place] [facility] [place] [facility] Jul 16, 2024 09:40 AM AMBULATORY - MEDICINE [place] [facility] [place] [facility] Jul 31, 2024 02:00 PM AMBULATORY - MEDICINE [facility] [place] [facility] Aug 16, 2024 11:00 AM AMBULATORY - MEDICINE [facility] [place] [facility] Aug 22, 2024 01:00 PM AMBULATORY - MEDICINE [facility] [place] [facility] Aug 26, 2024 03:30 PM AMBULATORY - MEDICINE [facility] [place] [facility] Oct 17, 2024 01:00 PM AMBULATORY - MEDICINE [facility] [place] [facility] Oct 24, 2024 10:30 AM AMBULATORY - PSYCHIATRY [facility] [place] [facility] Oct 24, 2024 10:30 AM [facility] Oct 29, 2024 08:30 AM AMBULATORY [facility] MED[facility] Active, Pending, and Scheduled Orders This section includes a listing of several types of active, pending, and scheduled orders, including clinic medications orders, diagnostic test orders, procedure orders and consult orders; where the start date of the order is 45 days before the date of the Encounter or 45 days after the date of theEncounter. The data comes from all [place] treatment facilities. Test Date/Time Test Type Test Details Facility Name May 03, 2024 03:01 PM Consult Order [facility] May 09, 2024 10:35 AM Consult Order [facility]ARDIOLOG[facility] Lab Results: +/- 30 days of the [...] Range Comment May 07, 2024 08:37 AM [facility] PSA Specimen Type: SERUM No comment entered. Ordering Provider: MARIIA ABBOTT Report Released Date/Time: May 04, 2024 12:14 AM Reporting Lab: [address] [address] Performing Lab: [address] [address] PSA 2.56 ng/mL 0.00-4.00 May 03, 2024 01:53 PM [facility] HEMOGLOBIN A1C PANEL Specimen Type: BLOOD Comment: [...] Oct 30, 2023 05:07 PM Reporting Lab: [address] [address] Performing Lab: [address] [address] HEMOGLOBIN A1C 8.1 H 4.0-5.6 May 03, 2024 01:53 PM [facility] LIPID PANEL FASTING Specimen Type: SERUM No comment entered. Ordering Provider: MARIIA ABBOTT Report Released Date/Time: Oct 30, 2023 05:07 PM Reporting Lab: [address] [address] Performing Lab: [address] [address] CHOLESTEROL 108 mg/dL TRIGLYCERIDE 79 mg/dL 0-150 LDL calculated 47 mg/dL 0-129 CHOL/HDL 2.4 HDL CHOLESTEROL 45 mg/dL 40-60 May 03, 2024 01:53 PM [facility] BASIC METABOLIC PANEL (fasting) Specime n Type: SERUM No comment entered. Ordering Provider: MARIIA ABBOTT Report Released Date/Time: Oct 30, 2023 05:07 PM Reporting Lab: [facility] [address] [address] Performing Lab: [address] [address] UREA NITROGEN 46 mg/dL H 7-25 GLUCOSE 294 mg/dL H 65-100 SODIUM 137 mmol/L 135-145 POTASSIUM 4.4 mmol/L 3.5-5.0 CHLORIDE 105 mmol/L 100-110 CO2 21 meq/L 20-30 CREATININE, Serum 1.05 mg/dL 0.50-1.40 eGFR(CKD-EPI 2020) 73 mL/min >60 May 03, 2024 01:53 PM [facility] LIVER FUNCTION Specimen Type: SERUM No comment entered. Ordering Provider: MARIIA ABBOTT Report Released Date/Time: Oct 30, 2023 05:07 PM Reporting Lab: [address] [address] Performing Lab: [address] [address] PROTEIN,TOTAL 7.3 g/dL 6.0-8.3 ALBUMIN 3.8 g/dL 3.5-5.0 ALKALINE PHOSPHATASE 73 U/L 40-150 AST 21 U/L 5-34 ALT 22 U/L BILIRUBIN, TOTAL 0.5 mg/dL 0.2-1.2 May 03, 2024 01:53 PM [facility] TSH Specimen Type: SERUM No comment entered. Ordering Provider: MARIIA ABBOTT Report Released Date/Time: Oct 30, 2023 05:07 PM Reporting Lab: [address] [address] Performing Lab: [address] [address] TSH 1.73 u[IU]/mL 0.35-5.00 May 03, 2024 01:53 PM [facility] MICROALBUMIN CREATININE RATIO PANEL Spe cimen Type: URINE No comment entered. Ordering Provider: MARIIA ABBOTT Report Released Date/Time: Oct 30, 2023 05:07 PM Reporting Lab: [facility] [address] Performing Lab: [address] [address] MICROALBUMIN/C REATININE RATIO 128.4 mg/g H 0-29.9 MICROALBUMIN,Q UANTITATIVE 5.4 mg/dL RR UNAVAIL CREATININE URINE 42.05 mg/dL May 03, 2024 01:53 PM [facility] CALCIUM Specimen Type: SERUM No comment entered. Ordering Provider: MARIIA ABBOTT Report Released Date/Time: Oct 30, 2023 05:07 PM Reporting Lab: [address] [address] Performing Lab: [address] [address] CALCIUM 9.7 mg/dL 8.5-10.2 May 03, 2024 01:53 PM [place] VITAMIN D (25-OH) Specimen Type: SERUM No comment entered. Ordering Provider: MARIIA ABBOTT Report Released Date/Time: Oct 30, 2023 05:07 PM Reporting Lab: [address] [address] Performing Lab: [address] [address] VITAMIN D (25-OH) 24 ng/mL 20-50 May 03, 2024 01:53 PM [facility] CBC AND DIFF (AUTO) Specimen Type: BLOOD No comment entered. Ordering Provider: MARIIA ABBOTT Report Released Date/Time: Oct 30, 2023 05:07 PM Reporting Lab: [address] [address] Performing Lab: [address] [address] WBC 6.25 10*3/uL 4.50-11.00 RBC 5.12 10*6/uL [...] 03, 2024 10:00 AM VA-TOBACCO NEVER USED [facility] Tobacco Use History This section includes a history of the smoking, or tobacco-related health factors, that were collected on or before the date of the Encounter. The data comes from the [place] facility where the Encounter took place. Date/Time Smoking Status/Tobacco Use Comment Edis mathis Dec 12, 2022 03:10 PM VA-TOBACCO NEVER USED [facility] Encounter Notes: All associated encounter notes This section contains the clinical notes associated to the Encounter. Date/Time Encounter Note(s) Provider Source May 06, 2024 12:17 PM CARE COORDINATION HOME TELEHEALTH FOLLOW-UP NOTE: LOCAL TITLE: HT INTERVENTION NOTE STANDARD TITLE: CARE COORDINATION HOME TELEHEALTH FOLLOW-UP NOTE DATE OF NOTE: MAY 06, 2024@12:17 ENTRY DATE: MAY 06, 2024@12:17:51 AUTHOR: LUCIANO MAO COSIGNER: URGENCY: STATUS: COMPLETED is actively enrolled in the Home Telehealth program. Review of data shows the following out of range responses: GILL DELUNA (-[id number]) Vital Sign for: 04/07/2024 - 05/06/2024 (All times are EST; All weights are lbs) Primary DMP: VHA-HTN Comorbid(s): Summary Weight Sys BP Barnett BP HR Pain High 174.4 156 85 107 Low 164.6 107 58 42 Average 169.6 128 71 81 Date Time Wt Time Sys Barnett Time HR Time Pain 05/06/2024 00:40 174.4 00:39 156/74 00:39 48 [...] 22:36 168.4 22:36 155/85 22:36 91 Source: [employer]; [employer] Assessment: Bradycardia and HTN per above. returned call to this video games storywriter. Intervention(s)/Plan: identified by full name and . He reports feeling in his usual state of health. He reports compliance with all medications as ordered. He denies dizziness, lightheadedness, headache, palpitations, SOB or weakness. He advised that bradycardia is not new for him and plans to reach out to his swine genetics researcher to schedule a follow up appt. Editing Clerk advised that he has an active consult valid until 07/13/24 for [facility] and confirmed had the phone number to contact them. Vet reports he needs to reschedule his PCP appt. Editing Clerk advised that Pact team has been advised of the same via his secure message and the request is pending signature at this time (See Primary Care Secure Message 05/06/24). Editing Clerk advised to recheck VS when he obtains readings outside of normal limits such as today's bradycardia or the tachycardia of 107 noted over the weekend. Vet explains that he typically does recheck but he does not initiate the recheck from his hub so the data is not transmitted. Vet agreed to use his RPM/HT hub and transmit his data obtained with rechecks going forward. TYPE OF ENCOUNTER: Telephone Length of call: 5-10 minutes /simone/ Luciano Mao RN RPM-Home Telehealth Assembly Line Machine Operator Signed: 05/06/2024 12:27 LUCIANO MAO [place] [facility]
--- OUTSIDE RECORDS SUMMARY | 2024-08-21 23:30 | XMS_ITS | Encounter Summary ---
Author Name [facility] [place] Address [address] [place] [address] Care Team Providers Care Wagon Person Name Role Phone MARIIA BROUSSARD Primary [...] Patient's Relationship to Policy Mancera EXPRESS SCRIPTS ([id number]) PRESCRIPT ION [facility] Mar 11, 2018 [id number] MADAI DELUNA OTHER RELATIONSHIP [facility] PREFERRED PROVIDER ORGANIZAT ION (PPO) Jun 11, 2011 [id number] MADAI DELUNA PATIENT HUMANA [facility] (WNR) MEDICARE ADVANTAGE [facility] (WNR) Sep 11, 2022 [id number] [phone] [place] PATIENT MEDICARE (WNR) MEDICARE (M) PART A January 10, 2012 PART A [id number] MIKIE GILL PATIENT MEDICARE (WNR) MEDICARE (M) PART B January 10, 2012 PART B [id number] GILL DELUNA PATIENT MEDICARE (WNR) MEDICARE (M) PART A January 10, 2012 PART A [id number] GILL DELUNA PATIENT UNICARE PREFERRED PROVIDER ORGANIZAT ION (PPO) [place] RE STATE INDE* * Mar 11, 2015 [id number] MADAI DELUNA [facility] (WNR) MEDICARE ADVANTAGE [facility] (WNR) Mar 11, 2021 [id number] GILL DELUNA PATIENT [facility]LLC[facility] (WNR) MEDICARE ADVANTAGE [facility] (WNR) Sep 11, 2021 [id number] GILL DELUNA PATIENT Selected Encounter This section includes the information on record at [place] for the Encounter. Date/Time Encounter Type Encounter Description Reason Pro vider Source May 09, 2024 09:00 AM Outpatient Encounter PRIMARY CARE/MEDICINE IHE Encounter Template Text not used by [place] Plan of Treatment: Future Appointments (+ 6 [...] 16, 2024 11:30 AM AM[place]ORY [place] [facility] Jun 11, 2024 08:30 AM AMBULATORY [facility] MED[facility] Jun 18, 2024 02:15 PM AMBULATORY - MED[facility] Jun 20, 2024 10:45 AM AMBULATORY - MED[facility]INE [facility] Jul 03, 2024 09:30 AM AM[place]UL[place]ORY [place] [facility] Jul 16, 2024 09:40 AM AM[place]ORY [place] [facility] Jul 31, 2024 02:00 PM AM[place]ULATORY [place] [facility] Aug 16, 2024 11:00 AM AM[place]ULATORY [place] [facility] Aug 22, 2024 01:00 PM AMBULATORY - [place]ICINE [place] [facility] Aug 26, 2024 03:30 PM AMBULATORY - MEDICINE [place] [facility] Oct 17, 2024 01:00 PM AMBULATORY - MEDICINE [place] [facility] [place] [place] [facility] Oct 24, 2024 10:30 AM AMBULATORY - PSYCHIATRY [place] [facility] [place] [facility] Oct 24, 2024 10:30 AM AMBULATORY [place] [facility] Oct 29, 2024 08:30 AM [...] 1 [facility] OUT[facility] IFC CT Cons [facility] [place] May 09, 2024 10:35 AM Consult Order COMMUNITY CARE-CARDIOLOGY [facility] Lab Results: +/- 30 days of the [...] Range Comment May 07, 2024 08:37 AM [place] PSA Specimen Type: SERUM No comment entered. Ordering Provider: MARIIA ABBOTT Report Released Date/Time: May 04, 2024 12:14 AM Reporting Lab: [place] [facility] [address] [address] Performing Lab: [place] [facility] [address] PSA 2.56 ng/mL 0.00-4.00 May 03, 2024 01:53 PM [place] LIPID PANEL FASTING Specimen Type: SERUM No comment entered. Ordering Provider: MARIIA ABBOTT Report Released Date/Time: Oct 30, 2023 05:07 PM Reporting Lab: [address] [address] Performing Lab: [address] [address] CHOLESTEROL 108 mg/dL TRIGLYCERIDE 79 mg/dL 0-150 LDL calculated 47 mg/dL 0-129 CHOL/HDL 2.4 HDL CHOLESTEROL 45 mg/dL 40-60 May 03, 2024 01:53 PM [place] BASIC METABOLIC PANEL (fasting) Specime n Type: SERUM No comment entered. Ordering Provider: MARIIA ABBOTT Report Released Date/Time: Oct 30, 2023 05:07 PM Reporting Lab: [address] [address] Performing Lab: [address] [address] UREA NITROGEN 46 mg/dL H 7-25 GLUCOSE 294 mg/dL H 65-100 SODIUM 137 mmol/L 135-145 POTASSIUM 4.4 mmol/L 3.5-5.0 CHLORIDE 105 mmol/L 100-110 CO2 21 meq/L 20-30 CREATININE, Serum 1.05 mg/dL 0.50-1.40 eGFR(CKD-EPI 2020) 73 mL/min >60 May 03, 2024 01:53 PM [place] HEMOGLOBIN A1C PANEL Specimen Type: BLOOD Comment: [...] Oct 30, 2023 05:07 PM Reporting Lab: [address] [address] Performing Lab: [address] [address] HEMOGLOBIN A1C 8.1 H 4.0-5.6 May 03, 2024 01:53 PM [place] LIVER FUNCTION Specimen Type: SERUM No comment entered. Ordering Provider: MARIIA ABBOTT Report Released Date/Time: Oct 30, 2023 05:07 PM Reporting [facility] [address] [address] Performing Lab: [address] [address] PROTEIN,TOTAL 7.3 g/dL 6.0-8.3 ALBUMIN 3.8 g/dL 3.5-5.0 ALKALINE PHOSPHATASE 73 U/L 40-150 AST 21 U/L 5-34 ALT 22 U/L BILIRUBIN, TOTAL 0.5 mg/dL 0.2-1.2 May 03, 2024 01:53 PM [place] TSH Specimen Type: SERUM No comment entered. Ordering Provider: MARIIA ABBOTT Report Released Date/Time: Oct 30, 2023 05:07 PM Reporting [facility] [address] [address] Performing Lab: [address] [address] TSH 1.73 u[IU]/mL 0.35-5.00 May 03, 2024 01:53 PM [place] VITAMIN D (25-OH) Specimen Type: SERUM No comment entered. Ordering Provider: MARIIA ABBOTT Report Released Date/Time: Oct 30, 2023 05:07 PM Reporting [facility] [address] [address] Performing Lab: [address] [address] VITAMIN D (25-OH) 24 ng/mL 20-50 May 03, 2024 01:53 PM [place] CALCIUM Specimen Type: SERUM No comment entered. Ordering Provider: MARIIA ABBOTT Report Released Date/Time: Oct 30, 2023 05:07 PM Reporting Lab: [address] [address] Performing Lab: [address] [address] CALCIUM 9.7 mg/dL 8.5-10.2 May 03, 2024 01:53 PM [place] MICROALBUMIN CREATININE RATIO PANEL Spe cimen Type: URINE No comment entered. Ordering Provider: MARIIA ABBOTT Report Released Date/Time: Oct 30, 2023 05:07 PM Reporting Lab: [address] [address] Performing Lab: [address] [address] MICROALBUMIN/C REATININE RATIO 128.4 mg/g H 0-29.9 MICROALBUMIN,Q UANTITATIVE 5.4 mg/dL RR UNAVAIL CREATININE URINE 42.05 mg/dL May 03, 2024 01:53 PM [place] CBC AND DIFF (AUTO) Specimen Type: BLOOD No comment entered. Ordering Provider: MARIIA ABBOTT Report Released Date/Time: Oct 30, 2023 05:07 PM Reporting Lab: [address] [address] Performing Lab: [address] [address] WBC 6.25 10*3/uL 4.50-11.00 RBC 5.12 10*6/uL [...] 03, 2024 10:00 AM VA-TOBACCO NEVER USED [facility] Tobacco Use History This section includes a history of the smoking, or tobacco-related health factors, that were collected on or before the date of the Encounter. The data comes from the [place] facility where the Encounter took place. Date/Time Smoking Status/Tobacco Use Comment F del Dec 12, 2022 03:10 PM VA-TOBACCO NEVER USED [facility] Encounter Notes: All associated encounter notes This section contains the clinical notes associated to the Encounter. Date/Time Encounter Note(s) Provider Source May 09, 2024 09:00 AM PRIMARY CARE K121UR E MESSAGING: LOCAL TITLE: PRIMARY CARE SECURE MESSAGING STANDARD TITLE: PRIMARY CARE SECURE MESSAGING DATE OF NOTE: MAY 09, 2024@09:00 ENTRY DATE: MAY 09, 2024@09:00:34 AUTHOR: LORETA SINGLETARY EXP COSIGNER: URGENCY: STATUS: COMPLETED PRIMARY CARE SECURE MESSAGING Has ADDENDA ------Original Message ----- Sent: 05/08/2024 10:18 AM ET From: ABDI ALMARAZ To: GILL DELUNA Subject: General:General Inquiry , The request for Lorazepam has been sent to the Mental Health Department. The Cardiology consult that we have on file for you, doesn't until Date: 2024-07-13 ------Original Message ----- Sent: 05/08/2024 10:59 PM ET From: GILL DELUNA To: BOBO,O_PRIM [facility] Subject: General:General Inquiry cardiology appointment is not until Jul /simone/ LORETA DAMICO Signed: 05/09/2024 09:00 Receipt Acknowledged By: 05/10/2024 16:25 /simone/ ABDI ALMARAZ LPN LPN 05/09/2024 11:59 /simone/ ZAID ODONNELL RN REGISTERED NURSE 05/09/2024 ADDENDUM STATUS: COMPLETED New cardiology consult already entered. /simone/ ZAID ODONNELL RN REGISTERED NURSE Signed: 05/09/2024 11:58 [facility]
--- OUTSIDE RECORDS SUMMARY | 2024-08-21 23:30 | XMS_ITS | Encounter Summary ---
Author Name [place] Address [address] [place] [address] Care Team Providers Care Cardiologist Name Role Phone MARIIA BROUSSARD Primary Care [...] Patient's Relationship to Policy [employer] EXPRESS SCRIPTS ([id number]) PRESCRIPT ION [facility] Mar 11, 2018 [id number] MADAI DELUNA OTHER RELATIONSHIP [facility] PREFERRED PROVIDER ORGANIZAT ION (PPO) Jun 11, 2011 [id number] MADAI DELUNA PATIENT HUMANA [facility] (WNR) MEDICARE ADVANTAGE [facility] (WNR) Sep 11, 2022 [id number] GILL DELUNA PATIENT MEDICARE (WNR) MEDICARE (M) PART A January 10, 2012 PART A [id number] MIKIE GILL PATIENT MEDICARE (WNR) MEDICARE (M) PART B January 10, 2012 PART B [id number] GILL DELUNA PATIENT MEDICARE (WNR) MEDICARE (M) PART A January 10, 2012 PART A [id number] GILL DELUNA PATIENT UNICARE PREFERRED PROVIDER ORGANIZAT ION (PPO) [place] RE STATE INDE* * Mar 11, 2015 [id number] MADAI DELUNA [facility] (WNR) MEDICARE ADVANTAGE [facility] (WNR) Mar 11, 2021 [id number] GILL DELUNA PATIENT [facility] (WNR) MEDICARE ADVANTAGE [facility] (WNR) Sep 11, 2021 [id number] GILL DELUNA PATIENT Selected Encounter This section includes the information on record at [place] for the Encounter. Date/Time Encounter Type Encounter Description Reason Pro vider Source May 08, 2024 10:11 AM Outpatient Encounter PRIMARY CARE/MEDICINE IHE Encounter Template Text not used by [place] Plan of Treatment: Future Appointments (+ 6 [...] - MEDICINE [place] [facility] Jun 11, 2024 08:30 AM AM[facility]ULATORY - MEDICINE [facility] Jun 18, 2024 02:15 PM AMBULATORY - MEDICINE [facility] Jun 20, 2024 10:45 AM AMBULATORY - MEDICINE [facility] Jul 03, 2024 09:30 AM AMBULATORY - MEDICINE [place] [facility] Jul 16, 2024 09:40 AM AMBULATORY - MEDICINE [place] [facility] Jul 31, 2024 02:00 PM AMBULATORY - MEDICINE [place] [facility] Aug 16, 2024 11:00 AM AMBULATORY - MEDICINE [place] [facility] Aug 22, 2024 01:00 PM AMBULATORY - MEDICINE [place] [facility] Aug 26, 2024 03:30 PM AMBULATORY - MEDICINE [place] [facility] Oct 17, 2024 01:00 PM AMBULATORY - MEDICINE [place] [facility] Oct 24, 2024 10:30 AM AMBULATORY - PSYCHIATRY [place] [facility] [place] [facility] Oct 24, 2024 10:30 AM AMBULATORY - [place] [facility] Oct 29, 2024 08:30 AM [...] of theEncounter. The data comes from all [place] treatment facilities. Test Date/Time Test Type Test Details Facility Name May 03, 2024 03:01 PM Consult Order [facility] OUTPT I[facility] CT Cons [facility] [place] May 09, 2024 10:35 AM Consult Order COMMUNITY CARE-CARDIOLOGY [facility] [place] Lab Results: +/- 30 days of the encounter This section includes the Chemistry and Hematology Lab Results on record with [place] for the patient. Radiology Reports and Pathology Reports are provided separately, in subsequent sections. Lab Results This section contains the Chemistry/Hematology Results that were resulted 30 days before or 30 daysafter the date of the Encounter. Date/Time Source Result Type Result - Unit Interpretation Reference Range Comment May 07, 2024 08:37 AM [place] PSA Specimen Type: SERUM No comment entered. Ordering Provider: MARIIA ABBOTT Report Released Date/Time: May 04, 2024 12:14 AM Reporting [facility]: [facility] [address] [facility] [address] Performing Lab: [facility] [address] [address] PSA 2.56 ng/mL 0.00-4.00 May 03, 2024 01:53 PM [place] BASIC METABOLIC PANEL (fasting) Specime n Type: SERUM No comment entered. Ordering Provider: MARIIA ABBOTT Report Released Date/Time: Oct 30, 2023 05:07 PM Reporting Lab: [address] [address] Performing Lab: [address] [address] UREA NITROGEN 46 mg/dL H 7-25 GLUCOSE 294 mg/dL H 65-100 SODIUM 137 mmol/L 135-145 POTASSIUM 4.4 mmol/L 3.5-5.0 CHLORIDE 105 mmol/L 100-110 CO2 21 meq/L 20-30 CREATININE, Serum 1.05 mg/dL 0.50-1.40 eGFR(CKD-EPI 2020) 73 mL/min >60 May 03, 2024 01:53 PM [place] LIPID PANEL FASTING Specimen Type: SERUM No comment entered. Ordering Provider: MARIIA ABBOTT Report Released Date/Time: Oct 30, 2023 05:07 PM Reporting Lab: [address] [address] Performing Lab: [address] [address] CHOLESTEROL 108 mg/dL TRIGLYCERIDE 79 mg/dL 0-150 LDL calculated 47 mg/dL 0-129 CHOL/HDL 2.4 HDL CHOLESTEROL 45 mg/dL 40-60 May 03, 2024 01:53 PM [place] HEMOGLOBIN A1C PANEL Specimen Type: BLOOD Comment: [...] Oct 30, 2023 05:07 PM Reporting Lab: [address] [address] Performing Lab: [address] [address] HEMOGLOBIN A1C 8.1 H 4.0-5.6 May 03, 2024 01:53 PM [place] LIVER FUNCTION Specimen Type: SERUM No comment entered. Ordering Provider: MARIIA ABBOTT Report Released Date/Time: Oct 30, 2023 05:07 PM Reporting [facility]: [facility] [address] [facility] [address] Performing Lab: [facility] [address] [address] PROTEIN,TOTAL 7.3 g/dL 6.0-8.3 ALBUMIN 3.8 g/dL 3.5-5.0 ALKALINE PHOSPHATASE 73 U/L 40-150 AST 21 U/L 5-34 ALT 22 U/L BILIRUBIN, TOTAL 0.5 mg/dL 0.2-1.2 May 03, 2024 01:53 PM [place] TSH Specimen Type: SERUM No comment entered. Ordering Provider: MARIIA ABBOTT Report Released Date/Time: Oct 30, 2023 05:07 PM Reporting Lab: [facility] [address] Performing [facility]: [facility] [address] [address] TSH 1.73 u[IU]/mL 0.35-5.00 May 03, 2024 01:53 PM [place] VITAMIN D (25-OH) Specimen Type: SERUM No comment entered. Ordering Provider: MARIIA ABBOTT Report Released Date/Time: Oct 30, 2023 05:07 PM Reporting Lab: [facility] [address] [address] Performing [facility]: [facility] [address] [address] VITAMIN D (25-OH) 24 ng/mL 20-50 May 03, 2024 01:53 PM [place] CALCIUM Specimen Type: SERUM No comment entered. Ordering Provider: MARIIA ABBOTT Report Released Date/Time: Oct 30, 2023 05:07 PM Reporting Lab: [facility] [address] [address] Performing Lab: [address] [address] CALCIUM 9.7 mg/dL 8.5-10.2 May 03, 2024 01:53 PM [place] MICROALBUMIN CREATININE RATIO PANEL Spe cimen Type: URINE No comment entered. Ordering Provider: MARIIA ABBOTT Report Released Date/Time: Oct 30, 2023 05:07 PM Reporting Lab: [address] [address] Performing Lab: [address] [address] MICROALBUMIN/C REATININE RATIO 128.4 mg/g H 0-29.9 MICROALBUMIN,Q UANTITATIVE 5.4 mg/dL RR UNAVAIL CREATININE URINE 42.05 mg/dL May 03, 2024 01:53 PM [place] CBC AND DIFF (AUTO) Specimen Type: BLOOD No comment entered. Ordering Provider: MARIIA ABBOTT Report Released Date/Time: Oct 30, 2023 05:07 PM Reporting Lab: [address] [address] Performing Lab: [address] [address] WBC 6.25 10*3/uL 4.50-11.00 RBC 5.12 10*6/uL [...] 03, 2024 10:00 AM VA-TOBACCO NEVER USED [facility] Tobacco Use History This section includes a history of the smoking, or tobacco-related health factors, that were collected on or before the date of the Encounter. The data comes from the [place] facility where the Encounter took place. Date/Time Smoking Status/Tobacco Use Comment F del Dec 12, 2022 03:10 PM VA-TOBACCO NEVER USED [facility] Encounter Notes: All associated encounter notes This section contains the clinical notes associated to the Encounter. Date/Time Encounter Note(s) Provider Source May 08, 2024 11:07 AM ADDENDUM: LOCAL TITLE: Addendum STANDARD TITLE: ADDENDUM DATE OF NOTE: MAY 08, 2024@11:07:44 ENTRY DATE: MAY 08, 2024@11:07:45 AUTHOR: SONNY CHASE COSIGNER: URGENCY: STATUS: COMPLETED Jensen's previous prescriber Olga Sheriff, DAVID has retired and Jensen is in need of a new prescriber assignment. [employer] entered a new psychiatric medication management referral on Jensen's behalf on 05/03/2024. was last seen by providerSharita on 10/23/2023 the plan at that time was: PLAN - Continue lorazepam 0.5mg. Take one tablet daily as needed #10 tablets. CC Individual therapy submitted. RTC - 5months with new prescriber . Lorazepam 0.5mg order on 04/24/2024 - last fill 04/21/2024 #10 tablets/10day supply. [employer] will request a covering provider consider renewing if appropriate and will alert coordinate measuring machine programmer to request referral be expedited. /es/ SONNY CHASE, MSN, RN, CNL MENTAL HEALTH NURSE UTILITY LINEMAN Signed: 05/08/2024 11:12 Receipt Acknowledged By: 05/08/2024 11:25 /es/ ZAID MCGRAW M.D. 05/08/2024 13:59 /es/ Matthew Cordoba Psy.D. AIR CONDITIONING INSTALLER, CLINICAL PSYCHOLOGIST --- Original Document --- 05/08/24 OUTPATIENT MEDICATION REQUEST: Medication Request Date of Request: Apr Is this a New Medication? No RENEW AND MAIL would get from Michelle Sharita [facility] I have not yet been able to request a new person 1) LORAZEPAM 0.5MG TAB TAKE ONE TABLET BY MOUTH ONCE DAILY FOR ANXIETY FORWARDING TO STAFF /simone/ ABDI ALMARAZ LPN LPN Signed: 05/08/2024 10:13 Receipt Acknowledged By: 05/08/2024 11:34 /simone/ CHARIS MAHAN, RN, CNL MENTAL HEALTH NURSE UTILITY LINEMAN SONNY CHASE May 08, 2024 10:11 AM MEDICATION MGT NOT E: LOCAL TITLE: OUTPATIENT MEDICATION REQUEST STANDARD TITLE: MEDICATION MGT NOTE DATE OF NOTE: MAY 08, 2024@10:11 ENTRY DATE: MAY 08, 2024@10:11:42 AUTHOR: ABDI ALMARAZ COSIGNER: URGENCY: STATUS: COMPLETED OUTPATIENT MEDICATION REQUEST Has ADDENDA Medication Request Date of Request: Apr Is this a New Medication? No RENEW AND MAIL would get from Michelle Sheriff who [facility] I have not yet been able to request a new person 1) LORAZEPAM 0.5MG TAB TAKE ONE TABLET BY MOUTH ONCE DAILY FOR ANXIETY FORWARDING TO STAFF /simone/ ABDI ALMARAZ LPN LPN Signed: 05/08/2024 10:13 Receipt Acknowledged By: 05/08/2024 11:34 /simone/ SONNY CHASE, MSN, RN, CNL MENTAL HEALTH NURSE UTILITY LINEMAN 05/08/2024 ADDENDUM STATUS: COMPLETED 's previous prescriber Olga Sheriff, DAVID has retired and is in need of a new prescriber assignment. [employer] entered a new psychiatric medication management referral on Jensen's behalf on 05/03/2024. was last seen by providerSharita on 10/23/2023 the plan at that time was: PLAN - Continue lorazepam 0.5mg. Take one tablet daily as needed #10 tablets. CC Individual therapy submitted. RTC - 5months with new prescriber . Lorazepam 0.5mg order on 04/24/2024 - last fill 04/21/2024 #10 tablets/10day supply. [employer] will request a covering provider consider renewing if appropriate and will alert coordinate measuring machine programmer to request referral be expedited. /simone/ SONNY CHASE, MSN, RN, CNL MENTAL HEALTH NURSE UTILITY LINEMAN Signed: 05/08/2024 11:12 Receipt Acknowledged By: 05/08/2024 11:25 /simone/ ZAID MCGRAW M.D. * AWAITING SIGNATURE * MATTHEW CORDOBA [place]
--- OUTSIDE RECORDS SUMMARY | 2024-08-21 23:30 | XMS_ITS | Encounter Summary ---
Author Name [place] Address [address] [place] [address] Care Team Providers Care Fountain Worker Name Role Phone MARIIA BROUSSARD Primary [...] Patient's Relationship to Policy [employer] EXPRESS SCRIPTS ([id number]) PRESCRIPT ION [facility] Mar 11, 2018 [id number] MADAI DELUNA OTHER RELATIONSHIP [facility] PREFERRED PROVIDER ORGANIZAT ION (PPO) Jun 11, 2011 [id number] MADAI DELUNA PATIENT HUMANA [facility] (WNR) MEDICARE ADVANTAGE [facility] (WNR) Sep 11, 2022 [id number] GILL DELUNA PATIENT MEDICARE (WNR) MEDICARE (M) PART A January 10, 2012 PART A [id number] [phone] [place] PATIENT MEDICARE (WNR) MEDICARE (M) PART B January 10, 2012 PART B [id number] [phone] GILL DELUNA PATIENT MEDICARE (WNR) MEDICARE (M) PART A January 10, 2012 PART A [id number] GILL DELUNA PATIENT UNICARE PREFERRED PROVIDER ORGANIZAT ION (PPO) [place] RE STATE INDE* * Mar 11, 2015 [id number] MADAI DELUNA SPOUSE [facility] (WNR) MEDICARE ADVANTAGE [facility] (WNR) Mar 11, 2021 [id number] GILL DELUNA PATIENT WELLCARE [facility] (WNR) MEDICARE ADVANTAGE [facility] (WNR) Sep 11, 2021 [id number] [place] PATIENT Selected Encounter This section includes the information on record at [place] for the Encounter. Date/Time Encounter Type Encounter Description Reason Provider Source Aug 25, 2023 01:00 PM OFF/OP EST JANUARY X REQ PHY/QHP PRIMARY CARE/MEDICINE ICD-10-CM R97.20 Elevated prostate specific antigen [PSA] ESTHELA MORTON [place] Encounter Template Text not used by [place] Assessments - Encounter Diagnoses This section includes the primary and secondary diagnoses documented for the Encounter. Date/Time Primary/Secondary Diagnosis Diagnosis Name Provider Source Aug 25, 2023 01:07 PM PRIMARY Elevated prostate specific antigen [PSA] ESTHELA MORTON [place] Plan of Treatment: Future Appointments (+ 6 [...] Appointment Type Appointme nt Facility Name Aug 28, 2023 08:00 AM AMBULATORY - MEDICINE [facility] Oct 02, 2023 10:45 AM [place] [facility] [facility] Oct 23, 2023 11:00 AM AMBULATORY - [place]IATRY [place] [facility] [place] [facility] Oct 23, 2023 11:01 AM AMBULATORY [place]IATRY [place] [facility] [facility] Oct 27, 2023 08:00 AM AMBULATORY - MEDICINE [place] [facility] [place] [facility] Oct 27, 2023 11:00 AM AMBULATORY - MEDICINE [place] Oct 30, 2023 06:00 PM AMBULATORY - MEDICINE [place] [facility] [place] [facility] Nov 07, 2023 10:00 AM AMBULATORY - MEDICINE [place] [facility] [place] [facility] Nov 10, 2023 01:15 PM AMBULATORY - MEDICINE [facility] [place] [facility] Nov 13, 2023 12:00 PM AMBULATORY - MEDICINE [facility] [place] [facility] Nov 20, 2023 11:00 AM AMBULATORY - MEDICINE [place] [facility] [place] [facility] Nov 27, 2023 11:00 AM AMBULATORY - MEDICINE [facility] [place] [facility] Nov 28, 2023 11:00 AM AMBULATORY - MEDICINE [place] [facility] [facility] Dec 04, 2023 01:00 PM AMBULATORY - NONE [place] [facility] [place] [facility] Dec 11, 2023 11:00 AM AMBULATORY - MEDICINE [place] [facility] [place] [facility] Dec 12, 2023 09:00 AM AMBULATORY - MEDICINE [place] [facility] [facility] January 15, 2024 01:40 PM AM[place]UL[place]ORY [place] [place] [facility] January 22, 2024 08:30 AM AMBULATORY - MEDICINE [facility] Lab Results: +/- 30 days [...] Range Comment Aug 21, 2023 10:03 AM [place] MICROSCOPIC AUTOMATED, URINE Specimen T ype: URINE Comment: If Glucose = >500 and Ketones are positive, please alert the Physician. Ordering Provider: MARIIA ABBOTT Report Released Date/Time: Aug 17, 2023 08:43 AM Reporting Lab: [place] [address] [address] Performing Lab: [facility] [address] [facility] [address] UA WBC 11-20 /[HPF] H 0-5 UA BACTERIA 1+ /[HPF] NoneObs UA RBC 0-2 /[HPF] 0-3 Aug 21, 2023 10:03 AM [place] URINALYSIS Specimen Type: URINE Comment: If Glucose = >500 and Ketones are positive, please alert the Physician. Ordering Provider: MARIIA ABBOTT Report Released Date/Time: Aug 17, 2023 08:43 AM Reporting Lab: [address] [address] Performing Lab: [address] [address] UA COLOR Light-Yellow Yellow UA APPEARANCE Clear Clear UA GLUCOSE 50 mg/dL Negative UA KETONES NEGATIVE mg/dL Negative UA BLOOD NEGATIVE mg/dL Negative UA PROTEIN NEGATIVE mg/dL Negative UA NITRITE NEGATIVE mg/dL Negative UA BILIRUBIN NEGATIVE mg/dL Negative UA SPECIFIC GRAVITY 1.015 L 1.016-1.02 2 UA pH 5.0 5.0-9.0 UA UROBILINOGEN <2.0 mg/dL <2.0 UA LEUKOCYTE SMALL Negative Aug 14, 2023 08:00 AM [place] PSA Specimen Type: SERUM No comment entered. Ordering Provider: MARIIA ABBOTT Report Released Date/Time: Jun 26, 2023 04:25 PM Reporting Lab: [address] [address] Performing Lab: [address] [address] PSA 3.97 ng/mL 0.00-4.00 Aug 14, 2023 08:00 AM [place] VITAMIN D (25-OH) Specimen Type: SERUM No comment entered. Ordering Provider: MARIIA ABBOTT Report Released Date/Time: Jun 26, 2023 04:25 PM Reporting Lab: [address] [address] Performing Lab: [address] [place] [address] VITAMIN D (25-OH) 23 ng/mL 20-50 Aug 14, 2023 08:00 AM [place] BASIC METABOLIC PANEL (non-fasting) Spe cimen Type: SERUM No comment entered. Ordering Provider: MARIIA ABBOTT Report Released Date/Time: Jun 26, 2023 04:25 PM Reporting Lab: [address] [address] Performing Lab: [address] [address] UREA NITROGEN 26 mg/dL H 7-25 GLUCOSE 138 mg/dL H 65-100 SODIUM 138 mmol/L 135-145 POTASSIUM 4.3 mmol/L 3.5-5.0 CHLORIDE 100 mmol/L 100-110 CO2 29 meq/L 20-30 CREATININE, Serum 1.00 mg/dL 0.50-1.40 eGFR(CKD-EPI 2020) 78 mL/min >60 Aug 14, 2023 08:00 AM [place] MAGNESIUM Specimen Type: SERUM No comment entered. Ordering Provider: MARIIA ABBOTT Report Released Date/Time: Jun 26, 2023 04:30 PM Reporting Lab: [address] [address] Performing Lab: [address] [address] MAGNESIUM 1.8 mg/dL 1.6-2.6 Aug 14, 2023 08:00 AM [place] URINALYSIS Specimen Type: URINE Comment: If Glucose = >500 and Ketones are positive, please alert the Physician. Ordering Provider: MARIIA ABBOTT Report Released Date/Time: Jun 26, 2023 04:25 PM Reporting Lab: [address] [address] Performing Lab: [address] [address] UA COLOR Colorless Yellow UA APPEARANCE Turbid Clear UA GLUCOSE 70 mg/dL Negative UA KETONES NEGATIVE mg/dL Negative UA BLOOD NEGATIVE mg/dL Negative UA PROTEIN NEGATIVE mg/dL Negative UA NITRITE NEGATIVE mg/dL Negative UA BILIRUBIN NEGATIVE mg/dL Negative UA SPECIFIC GRAVITY 1.012 L 1.016-1.02 2 UA pH 6.5 5.0-9.0 UA UROBILINOGEN <2.0 mg/dL <2.0 UA LEUKOCYTE LARGE Negative Aug 14, 2023 08:00 AM [place] MICROSCOPIC AUTOMATED, URINE Specimen T ype: URINE Comment: If Glucose = >500 and Ketones are positive, please alert the Physician. Ordering Provider: MARIIA ABBOTT Report Released Date/Time: Jun 26, 2023 04:25 PM Reporting Lab: [address] [address] Performing Lab: [address] [address] UA WBC TNTC /[HPF] 0-5 UA BACTERIA 2+ /[HPF] NoneObs UA MUCUS FEW /[LPF] Trace UA RBC 21-50 /[HPF] H 0-3 Aug 14, 2023 08:00 AM [facility] MICROALBUMIN CREATININE RATIO PANEL Specimen Type: URINE No comment entered. Ordering Provider: BRANDON ARMSTRONG Report Released Date/Time: Aug 07, 2023 11:12 AM Reporting Lab: [facility] [address] [facility] [address] Performing Lab: [address] [address] MICROALBUMIN/C REATININE RATIO 43.0 mg/g H 0-29.9 MICROALBUMIN,Q UANTITATIVE 2.0 mg/dL RR UNAVAIL CREATININE URINE 46.53 mg/dL Aug 14, 2023 08:00 AM [facility] HEMOGLOBIN A1C PANEL Specimen Type: BLOOD Comment: [...] Aug 07, 2023 11:12 AM Reporting Lab: [facility] [address] [facility] [address] Performing Lab: [facility] [address] [facility] [address] HEMOGLOBIN A1C 7.9 H 4.0-5.6 Social History: Smoking Status (Most current) and Tobacco Use (All prior to encounter date) This section includes the most current, and the historical, smoking and tobacco- related health factors from the [facility] where the Encounter took place. Current Smoking Status This section includes the most current smoking, or tobacco-related health factor, from the [place] facility where the Encounter took place. Date/Time Current Smoking Status Comment Facil it Jul 06, 2021 09:30 AM VA-TOBACCO NEVER USED [place] Tobacco Use History This section includes a history of the smoking, or tobacco-related health factors, that were collected on or before the date of the Encounter. The data comes from the [place] facility where the Encounter took place. Date/Time Smoking Status/Tobacco Use Comment F acility Apr 30, 2020 01:00 PM VA-TOBACCO FORMER USER [place] Apr 30, 2020 01:00 PM VA-TOBACCO QUIT 15 YRS OR MORE [place] January 09, 2019 02:16 PM VA-TOBACCO FORMER USER [place] January 09, 2019 02:16 PM VA-TOBACCO QUIT 15 YRS OR MORE [place] Feb 13, 2018 11:05 AM QUIT TOBACCO USE > 7 YEARS AGO [place] Feb 28, 2017 01:42 PM LIFETIME NON-TOBACCO USER quit 1976 [place] Nov 17, 2015 09:53 AM QUIT TOBACCO USE > 7 YEARS AGO [place] February 08, 2002 03:04 PM QUIT TOBACCO USE > 7 YEARS AGO Patient states he smoked from age [age] and quit. [place] Aug 10, 2001 03:42 PM NON-TOBACCO USER Stopped tobacco 35 years ago [place] Pathology Reports: +/- 30 days of the [...] the Encounter. The data comes from all [place] treatment facilities. Date/Time Pathology Report Provider Source Aug 21, 2023 10:03 AM [place] MICROBIOLOGY RE PORT: Reporting Lab: [facility] [CLIA# [id number]] [address] [place] [address] Accession [UID]: [id number] [[id number]] Received: Aug 21, 2023@10:03 Collection sample: URINE CLEAN CATCH Collection date: Aug 21, 2023 10:03 Site/Specimen: URINE Provider: MARIIA BROUSSARD Test(s) ordered: URINE CULTURE(MWROX).......... completed: Aug 25, 2023 08:27 * BACTERIOLOGY FINAL REPORT => Aug 25, 2023 08:27 TECH CODE: [id number] Bacteriology Remark(s): NO GROWTH IN 24 HOURS, FINAL REPORT TO FOLLOW. <10,000 CFU/ML GRAM POSITIVE (NOT OTHERWISE SPECIFIED) =--=--=--=--=--=--=--=--=--=--=-- =--=--=--=--=--=--=--=--=--=--=-- =--=--=--=-- Performing Laboratory: Bacteriology Report Performed By: [facility] [CLIA# [id number]] [address] [place] [address] [facility] TO[facility] [place] Encounter Notes: All associated encounter notes This section contains the clinical notes associated to the Encounter. Date/Time Encounter Note(s) Provider Source Aug 25, 2023 01:01 PM NURSING NOTE: LOCAL TITLE: PRIMARY CARE NURSE NOTE STANDARD TITLE: NURSING NOTE DATE OF NOTE: AUG 25, 2023@13:01 ENTRY DATE: AUG 25, 2023@13:01:58 AUTHOR: ESTHELA MORTON EXP COSIGNER: URGENCY: STATUS: COMPLETED Lowry was seen for a PVR Bladder scan. Upon voiding, the was scanned and found to have 352 ml of urine still in his bladder. Lowry was asked if he felt full and stated he did not. Will attach the provider to this note. Lowry stated that he used to see Dr. Mccurdy for Urology. /simone/ ESTHELA MORTON RN REGISTERED NURSE Signed: 08/25/2023 13:07 ESTHELA MORTON
--- OUTSIDE RECORDS SUMMARY | 2024-08-21 23:30 | XMS_ITS ---
Author Name [facility] [place] Address [address] [place] [address] Care Team Providers Care Hospital Account Manager Name Role Phone MARIIA BROUSSARD Primary [...] Patient's Relationship to Policy [employer] EXPRESS SCRIPTS ([id number]) PRESCRIPT ION [facility] Mar 11, 2018 [id number] [phone] MADAI DELUNA OTHER RELATIONSHIP [facility] PREFERRED PROVIDER ORGANIZAT ION (PPO) Jun 11, 2011 [id number] MADAI DELUNA PATIENT HUMANA [facility] (WNR) MEDICARE ADVANTAGE [facility] (WNR) Sep 11, 2022 [id number] [phone] GILL DELUNA PATIENT MEDICARE (WNR) MEDICARE (M) PART A January 10, 2012 PART A [id number] GILL DELUNA PATIENT MEDICARE (WNR) MEDICARE (M) PART B January 10, 2012 PART B [id number] GILL DELUNA PATIENT MEDICARE (WNR) MEDICARE (M) PART A January 10, 2012 PART A [id number] [phone] GILL DELUNA PATIENT UNICARE PREFERRED PROVIDER ORGANIZAT ION (PPO) [place] RE STATE THUYE* * Mar 11, 2015 [id number] [facility] (WNR) MEDICARE ADVANTAGE [facility] (WNR) Mar 11, 2021 [id number] GILL DELUNA PATIENT WELLCARE [facility] (WNR) MEDICARE ADVANTAGE [facility] (WNR) Sep 11, 2021 [id number] [phone] MIKIE GILL PATIENT Selected Encounter This section includes the information on record at [place] for the Encounter. Date/Time Encounter Type Encounter Description Reason Pro vider Source May 06, 2024 08:47 AM Outpatient Encounter TELEPHONE PRIMARY CARE IHE [...] - MEDICINE [place] [place] [facility] Jun 11, 2024 08:30 AM [facility] Jun 18, 2024 02:15 PM AMBULATORY [facility] Jun 20, 2024 10:45 AM [facility] Jul 03, 2024 09:30 AM AMBULATORY - MEDICINE [place] [facility] [place] [facility] Jul 16, 2024 09:40 AM AMBULATORY - MEDICINE [place] [facility] [place] [facility] Jul 31, 2024 02:00 PM AMBULATORY - MEDICINE [place] [facility] [place] [facility] Aug 16, 2024 11:00 AM AMBULATORY - MEDICINE [place] [facility] [place] [facility] Aug 22, 2024 01:00 PM AMBULATORY - MEDICINE [place] [facility] [place] [facility] Aug 26, 2024 03:30 PM AMBULATORY - MEDICINE [place] [facility] [place] [facility] Oct 17, 2024 01:00 PM AMBULATORY - MEDICINE [place] [facility] [place] [facility] Oct 24, 2024 10:30 AM AMBULATORY - PSYCHIATRY [place] [facility] [place] [facility] Oct 24, 2024 10:30 AM AMBULATORY [place] [facility] Oct 29, 2024 08:30 AM AMBULATORY [...] 1 [facility] PSYCHIATRY OUTPT IFC CT Cons Machine [facility] [place] May 09, 2024 10:35 AM Consult Order [facility]-CARDIOLOGY Cons Machine [facility] [place] Lab Results: +/- 30 days of the [...] Range Comment May 07, 2024 08:37 AM [place] PSA Specimen Type: SERUM No comment entered. Ordering Provider: MARIIA ABBOTT Report Released Date/Time: May 04, 2024 12:14 AM Reporting [facility] [address] [address] Performing Lab: [facility] [address] [address] PSA 2.56 ng/mL 0.00-4.00 May 03, 2024 01:53 PM [place] BASIC METABOLIC PANEL (fasting) Specime n Type: SERUM No comment entered. Ordering Provider: MARIIA ABBOTT Report Released Date/Time: Oct 30, 2023 05:07 PM Reporting Lab: [address] [address] Performing Lab: [address] [address] UREA NITROGEN 46 mg/dL H 7-25 GLUCOSE 294 mg/dL H 65-100 SODIUM 137 mmol/L 135-145 POTASSIUM 4.4 mmol/L 3.5-5.0 CHLORIDE 105 mmol/L 100-110 CO2 21 meq/L 20-30 CREATININE, Serum 1.05 mg/dL 0.50-1.40 eGFR(CKD-EPI 2020) 73 mL/min >60 May 03, 2024 01:53 PM [place] LIPID PANEL FASTING Specimen Type: SERUM No comment entered. Ordering Provider: MARIIA ABBOTT Report Released Date/Time: Oct 30, 2023 05:07 PM Reporting Lab: [address] [address] Performing Lab: [address] [address] CHOLESTEROL 108 mg/dL TRIGLYCERIDE 79 mg/dL 0-150 LDL calculated 47 mg/dL 0-129 CHOL/HDL 2.4 HDL CHOLESTEROL 45 mg/dL 40-60 May 03, 2024 01:53 PM [place] HEMOGLOBIN A1C PANEL Specimen Type: BLOOD Comment: [...] Oct 30, 2023 05:07 PM Reporting Lab: [address] [address] Performing Lab: [address] [address] HEMOGLOBIN A1C 8.1 H 4.0-5.6 May 03, 2024 01:53 PM [place] LIVER FUNCTION Specimen Type: SERUM No comment entered. Ordering Provider: MARIIA ABBOTT Report Released Date/Time: Oct 30, 2023 05:07 PM Reporting Lab[facility] [address] [facility] [address] Performing Lab: [facility] [address] [address] PROTEIN,TOTAL 7.3 g/dL 6.0-8.3 ALBUMIN 3.8 g/dL 3.5-5.0 ALKALINE PHOSPHATASE 73 U/L 40-150 AST 21 U/L 5-34 ALT 22 U/L BILIRUBIN, TOTAL 0.5 mg/dL 0.2-1.2 May 03, 2024 01:53 PM [place] TSH Specimen Type: SERUM No comment entered. Ordering Provider: MARIIA ABBOTT Report Released Date/Time: Oct 30, 2023 05:07 PM Reporting Lab: [facility] [address] [facility] [address] Performing Lab: [facility] [address] [address] TSH 1.73 u[IU]/mL 0.35-5.00 May 03, 2024 01:53 PM [place] VITAMIN D (25-OH) Specimen Type: SERUM No comment entered. Ordering Provider: MARIIA ABBOTT Report Released Date/Time: Oct 30, 2023 05:07 PM Reporting Lab: [facility] [address] [address] Performing Lab: [facility] [address] [address] VITAMIN D (25-OH) 24 ng/mL 20-50 May 03, 2024 01:53 PM [place] CALCIUM Specimen Type: SERUM No comment entered. Ordering Provider: MARIIA ABBOTT Report Released Date/Time: Oct 30, 2023 05:07 PM Reporting Lab: [facility] [address] [address] Performing Lab: [facility] [address] [facility] [address] CALCIUM 9.7 mg/dL 8.5-10.2 May 03, 2024 01:53 PM [place] MICROALBUMIN CREATININE RATIO PANEL Spe cimen Type: URINE No comment entered. Ordering Provider: MARIIA ABBOTT Report Released Date/Time: Oct 30, 2023 05:07 PM Reporting Lab: [address] [address] Performing Lab: [address] [address] MICROALBUMIN/C REATININE RATIO 128.4 mg/g H 0-29.9 MICROALBUMIN,Q UANTITATIVE 5.4 mg/dL RR UNAVAIL CREATININE URINE 42.05 mg/dL May 03, 2024 01:53 PM [place] CBC AND DIFF (AUTO) Specimen Type: BLOOD No comment entered. Ordering Provider: MARIIA ABBOTT Report Released Date/Time: Oct 30, 2023 05:07 PM Reporting Lab: [address] [address] Performing Lab: [address] [address] WBC 6.25 10*3/uL 4.50-11.00 RBC 5.12 10*6/uL [...] 03, 2024 10:00 AM VA-TOBACCO NEVER USED [facility] Tobacco Use History This section includes a history of the smoking, or tobacco-related health factors, that were collected on or before the date of the Encounter. The data comes from the [place] facility where the Encounter took place. Date/Time Smoking Status/Tobacco Use Comment Edis mathis Dec 12, 2022 03:10 PM VA-TOBACCO NEVER USED [facility] Encounter Notes: All associated encounter notes This section contains the clinical notes associated to the Encounter. Date/Time Encounter Note(s) Provider Source May 06, 2024 08:47 AM CARE COORDINATION HOME TELEHEALTH NOTE: LOCAL TITLE: NOTE STANDARD TITLE: CARE COORDINATION HOME TELEHEALTH NOTE DATE OF NOTE: MAY 06, 2024@08:47 ENTRY DATE: MAY 06, 2024@08:47:57 AUTHOR: LUCIANO MAO COSIGNER: URGENCY: STATUS: COMPLETED GILL DELUNA (-[id number]) Vital Sign for: 04/07/2024 - 05/06/2024 (All [...] 22:36 168.4 22:36 155/85 22:36 91 Source: [employer]; [employer] Bradycardia and HTN per above. This show card writer attempted to reach to review readings and assess for any symptoms, changes, questions or concerns. No answer. Left voicemail message requesting return call. /simone/ Luciano Mao RN [facility]-Home Telehealth Roll Table Operator Signed: 05/06/2024 08:48 LUCIANO MAO [facility]
--- OUTSIDE RECORDS SUMMARY | 2024-08-21 23:31 | XMS_ITS | Encounter Summary ---
Author Name [facility] [place] [facility] [place] Address [address] [place] [address] Care Team Providers Care Cashiers Bussers Food Runners Name Role Phone MARIIA BROUSSARD Primary Care [...] Patient's Relationship to Policy [employer] ([id number]) PRESCRIPT ION [facility] Mar 11, 2018 [id number] [phone] MADAI DELUNA OTHER RELATIONSHIP [facility] PREFERRED PROVIDER ORGANIZAT ION (PPO) Jun 11, 2011 [id number] MADAI DELUNA PATIENT [employer] [facility] (WNR) MEDICARE ADVANTAGE [facility] (WNR) Sep 11, 2022 [id number] [phone] GILL DELUNA PATIENT MEDICARE (WNR) MEDICARE (M) PART A January 10, 2012 PART A [id number] [phone] GILL DELUNA PATIENT MEDICARE (WNR) MEDICARE (M) PART B January 10, 2012 PART B [id number] [phone] GILL DELUNA PATIENT MEDICARE (WNR) MEDICARE (M) PART A January 10, 2012 PART A [id number] GILL DELUNA PATIENT UNICARE PREFERRED PROVIDER ORGANIZAT ION (PPO) [facility] INDE* * Mar 11, 2015 [id number] MADAI DELUNA SPOUSE [facility] (WNR) MEDICARE ADVANTAGE [facility] (WNR) Mar 11, 2021 [id number] GILL DELUNA PATIENT [facility] (WNR) MEDICARE ADVANTAGE [facility] (WNR) Sep 11, 2021 [id number] GILL DELUNA PATIENT Selected Encounter This section includes the information on record at [place] for the Encounter. Date/Time Encounter Type Encounter Description Reason Provider Source May 16, 2024 11:30 AM OFFICE O/P EST MOD 30 MIN DERMATOLOGY ICD-10-CM L57.0 Actinic keratosis CINDA GARCIA Belle Encounter Template Text not used by [place] Assessments - Encounter Diagnoses This section includes the primary and secondary diagnoses documented for the Encounter. Date/Time Primary/Secondary Diagnosis Diagnosis Name Provider Source May 20, 2024 07:56 AM PRIMARY Actinic keratosis HENNA GARCIA [facility] May 20, 2024 07:56 AM SECONDARY Hemangioma of skin and subcutaneous tissue HENNA GARCIA [facility] [place] May 20, 2024 07:56 AM SECONDARY Other melanin hyperpigmentation HENNA GARCIA [facility] [place] May 20, 2024 07:56 AM SECONDARY Other seborrheic keratosis [facility] [place] May 20, 2024 07:56 AM SECONDARY Personal history of other malignant neoplasm of skin HENNA GARCIA [facility] [place] Plan of Treatment: Future Appointments (+ [...] 20 appointments. The data comes from all [facility]. Appointment Date/Time Appointment Type Appointme nt Facility Name Jun 11, 2024 08:30 AM [facility] Jun 18, 2024 02:15 PM [facility] Jun 20, 2024 10:45 AM AMBULATORY - MEDICINE [facility] Jul 03, 2024 09:30 AM [facility] [place] Jul 16, 2024 09:40 AM [facility]ULATORY [facility] [place] Jul 31, 2024 02:00 PM AM[facility]ULATORY [facility]INE [facility] [place] [facility] Aug 16, 2024 11:00 AM AM[facility]ULATORY [facility] [place] Aug 22, 2024 01:00 PM AM[facility]ULATORY [facility]ICINE [facility] [place] [facility] Aug 26, 2024 03:30 PM AM[facility]ULATORY [facility] MEDICINE [facility] [place] [facility] Oct 17, 2024 01:00 PM AMBULATORY [facility]ICINE [facility] [place] Oct 24, 2024 10:30 AM AMBULATORY - PS[facility]CHIATRY [facility] [place] [facility] Oct 24, 2024 10:30 AM [facility] Oct 29, 2024 08:30 AM [facility] Active, Pending, and Scheduled Orders This section includes a listing of several types of active, pending, and scheduled orders, including clinic medications orders, diagnostic test orders, procedure orders and consult orders; where the start date of the order is 45 days before the date of the Encounter or 45 days after the date of theEncounter. The data comes from all [facility]. Test Date/Time Test Type Test Details Facility Name May 03, 2024 03:01 PM Consult Order VISN 1 [facility] PSY[facility]IATRY OUTPT IFC CT [facility] May 09, 2024 10:35 AM Consult Order [facility]ARDIOLOG[facility] Lab Results: +/- 30 days of the [...] Range Comment May 07, 2024 08:37 AM [facility] PSA Specimen Type: SERUM No comment entered. Ordering Provider: MARIIA ABBOTT Report Released Date/Time: May 04, 2024 12:14 AM Reporting Lab: [facility] [address] Performing Lab: [facility] [address] [address] PSA 2.56 ng/mL 0.00-4.00 May 03, 2024 01:53 PM [facility] LIPID PANEL FASTING Specimen Type: SERUM No comment entered. Ordering Provider: MARIIA ABBOTT Report Released Date/Time: Oct 30, 2023 05:07 PM Reporting Lab: [facility] [address] Performing Lab: [facility] [address] [address] CHOLESTEROL 108 mg/dL TRIGLYCERIDE 79 mg/dL 0-150 LDL calculated 47 mg/dL 0-129 CHOL/HDL 2.4 HDL CHOLESTEROL 45 mg/dL 40-60 May 03, 2024 01:53 PM [facility] BASIC METABOLIC PANEL (fasting) Specime n Type: SERUM No comment entered. Ordering Provider: MARIIA ABBOTT Report Released Date/Time: Oct 30, 2023 05:07 PM Reporting Lab: [facility] [address] Performing Lab: [facility] [address] UREA NITROGEN 46 mg/dL H 7-25 GLUCOSE 294 mg/dL H 65-100 SODIUM 137 mmol/L 135-145 POTASSIUM 4.4 mmol/L 3.5-5.0 CHLORIDE 105 mmol/L 100-110 CO2 21 meq/L 20-30 CREATININE, Serum 1.05 mg/dL 0.50-1.40 eGFR(CKD-EPI 2020) 73 mL/min >60 May 03, 2024 01:53 PM [facility] HEMOGLOBIN A1C PANEL Specimen Type: BLOOD Comment: [...] Oct 30, 2023 05:07 PM Reporting Lab: [address] [address] Performing Lab: [address] [address] HEMOGLOBIN A1C 8.1 H 4.0-5.6 May 03, 2024 01:53 PM [facility] LIVER FUNCTION Specimen Type: SERUM No comment entered. Ordering Provider: MARIIA ABBOTT Report Released Date/Time: Oct 30, 2023 05:07 PM Reporting Lab: [address] [address] Performing Lab: [address] [address] PROTEIN,TOTAL 7.3 g/dL 6.0-8.3 ALBUMIN 3.8 g/dL 3.5-5.0 ALKALINE PHOSPHATASE 73 U/L 40-150 AST 21 U/L 5-34 ALT 22 U/L BILIRUBIN, TOTAL 0.5 mg/dL 0.2-1.2 May 03, 2024 01:53 PM [facility] TSH Specimen Type: SERUM No comment entered. Ordering Provider: MARIIA ABBOTT Report Released Date/Time: Oct 30, 2023 05:07 PM Reporting Lab: [address] [address] Performing Lab: [address] [address] TSH 1.73 u[IU]/mL 0.35-5.00 May 03, 2024 01:53 PM [facility] VITAMIN D (25-OH) Specimen Type: SERUM No comment entered. Ordering Provider: MARIIA ABBOTT Report Released Date/Time: Oct 30, 2023 05:07 PM Reporting Lab: [address] [address] Performing Lab: [address] [address] VITAMIN D (25-OH) 24 ng/mL 20-50 May 03, 2024 01:53 PM [facility] CALCIUM Specimen Type: SERUM No comment entered. Ordering Provider: MARIIA ABBOTT Report Released Date/Time: Oct 30, 2023 05:07 PM Reporting Lab: [address] [address] Performing Lab: [address] [address] CALCIUM 9.7 mg/dL 8.5-10.2 May 03, 2024 01:53 PM [facility] MICROALBUMIN CREATININE RATIO PANEL Spe cimen Type: URINE No comment entered. Ordering Provider: MARIIA ABBOTT Report Released Date/Time: Oct 30, 2023 05:07 PM Reporting Lab: [address] [address] Performing Lab: [address] [address] MICROALBUMIN/C REATININE RATIO 128.4 mg/g H 0-29.9 MICROALBUMIN,Q UANTITATIVE 5.4 mg/dL RR UNAVAIL CREATININE URINE 42.05 mg/dL May 03, 2024 01:53 PM [facility] CBC AND DIFF (AUTO) Specimen Type: BLOOD No comment entered. Ordering Provider: MARIIA ABBOTT Report Released Date/Time: Oct 30, 2023 05:07 PM Reporting Lab: [address] [address] Performing Lab: [facility] [address] [facility] [facility] [address] WBC 6.25 10*3/uL 4.50-11.00 RBC 5.12 10*6/uL [...] Date/Time Current Smoking Status Comment Facil ity May 03, 2024 10:00 AM [place]-TOBACCO NEVER USED [facility] Tobacco Use History This section includes a history of the smoking, or tobacco-related health factors, that were collected on or before the date of the Encounter. The data comes from the [place] facility where the Encounter took place. Date/Time Smoking Status/Tobacco Use Comment Edis mathis Dec 12, 2022 03:10 PM [place]-TOBACCO NEVER USED IN [facility] [place] [facility] Encounter Notes: All associated encounter notes This section contains the clinical notes associated to the Encounter. Date/Time Encounter Note(s) Provider Source May 16, 2024 11:21 AM DERMATOLOGY OUTPATIENT NOTE: LOCAL TITLE: DERMATOLOGY CLINIC NOTE STANDARD TITLE: DERMATOLOGY OUTPATIENT NOTE DATE OF NOTE: MAY 16, 2024@11:21 ENTRY DATE: MAY 16, 2024@11:21:32 AUTHOR: DENILSON GARCIA EXP COSIGNER: URGENCY: STATUS: COMPLETED MAY 16, 2024 GILL DELUNA January 79 PATIENT PHONE - Patient here for Annual Full Body Skin Surveillance Exam CHIEF COMPLAINT: h/o BCC, AKs HPI: Reviewed records from last Dermatology visit: 05/22/23; AKs s/p LN2 on vertex scalp, forehead, bilateral temples, R superior helix, nasal bridge, bilateral post-auricular area, L dorsal hand, L dorsal forearm He reports to still have some crusting areas. denies any other new/changing/bleeding/non- healing lesions. REVIEW OF SYSTEMS: Constitutional-neg Skin/Hair/Nails-see HPI DermHx: -BCC, R nasolabial fold s/p Mohs 2000 at [facility] -AKs s/p LN2 Family Hx: Denies known h/o MM PastMedHx: Reviewed History of Sun Exposure/Sunburns: +yes, blistering mccullough in youth Active Outpatient Medications (including Supplies): Active Outpatient Medications Status 1) ACCU-CHEK GUIDE (GLUCOSE) TEST STRIP USE 1 STRIP TO ACTIVE TEST BLOOD SUGARS FOUR TIMES A DAY 2) BETHANECHOL CHLORIDE 25MG TAB TAKE TWO TABLETS BY ACTIVE (S) MOUTH TWICE DAILY FOR URINARY RETENTION 3) CHLORTHALIDONE 25MG TAB TAKE ONE TABLET BY MOUTH ONCE ACTIVE (S) DAILY TO REMOVE FLUID/CONTROL BLOOD PRESSURE 4) CLONIDINE HCL 0.1MG TAB TAKE ONE TABLET BY MOUTH ACTIVE (S) EVERY 12 HOURS TO CONTROL BLOOD PRESSURE 5) DEXTROSE 24GM/31GM SQUEEZE TUBE 1 TUBE BY MOUTH ACTIVE NEEDED FOR LOW BLOOD SUGAR 6) GLUCOSE SENSOR DEXCOM G7 USE 1 SENSOR DIRECTED ACTIVE EVERY 10 DAYS 7) INSULIN,ASPART(EQV-NOVLG)1 00UN/ML FLXPEN INJECT ACTIVE DIRECTED SUBCUTANEOUSLY THREE TIMES A DAY ACCORDING TO ICR OF 1 UNIT FOR EACH 9 GRAMS OF CARBS BEFORE BREAKFAST AND LUNCH AND 1 UNIT FOR EACH 10 GRAMS OF CARBS BEFORE DINNER MEAL 8) INSULIN,GLARGINE-YFGN 100UNIT/ML PEN 3ML INJECT 11 ACTIVE UNITS SUBCUTANEOUSLY ONCE DAILY FOR DIABETES 9) LANCET,SOFTCLIX USE 1 LANCET DIRECTED FOUR TIMES A ACTIVE DAY TO TEST BLOOD SUGAR 10) LORAZEPAM 0.5MG TAB TAKE ONE TABLET [...] INTO EACH ACTIVE NOSTRIL 15 Total Medications PHYSICAL EXAM: Kirkpatrick Skintype I General-AxOx3, NAD, pleasant, breathing unlabored, speech clear Limited Cutaneous examination, as permitted by the patient (kept shorts, socks and shoes on), including scalp, face, eyes, ears, neck, chest, back, abdomen, arms, hands, fingers, lower legs Pertinent findings per below: -R nasolabial fold with a well healed surgical scar, no abnormal pigmentation noted -Multiple scattered stuck-on appearing waxy schumacher and brown papules and plaques with noted fissures/ridges on dermoscopy. -Scattered uniformly pigmented light schumacher and brown jagged macules in sun distributed areas. -Scattered shanks-red dome shaped papules on chest/back with noted lacunae and septae noted on dermoscopy -Multiple thin erythematous gritty papules and plaques noted to frontal, mid and vertex scalp, nasal dorsum, L zygoma, bilat temples and lateral cheeks Diagnosis/Plan: #Actinic Keratosis: - educated on relationship to squamous cell carcinoma. -Treatment options discussed. -Liquid nitrogen cryotherapy performed as a destructive method. -Liquid nitrogen (2 cycles x 5-8sec) x #7 lesions performed. -Side effects including but not limited to redness, crusting, swelling, blistering, hypopigmentation and scarring discussed. --FOR RESIDUAL LESIONS: Noel agreeable to field therapy with flourouracil (5FU). -Proper use of Efudex (fluorouracil) 5% including application of a thin layer to the entire area twice daily for a goal of 4 weeks recommended or until superficial erosion occurs. -Discussed application instructions in length. -Wash hands after applications to avoid contact with eyes. -Risks/benefits/alternativ es discussed. -Side effects including but not limited to severe irritation, swelling, redness, crusting discussed. -Educated regarding expected reaction during and after treatment. -Explained that fluorouracil will selectively destroy abnormal cells while leaving the normal skin cells alone. This will result in spotty areas of redness and peeling which sometimes can be interpreted as a allergic reaction to the cream, but is in fact a therapeutic effect of the cream. The inflamed areas will heal up with new skin cells after he finishes the 2 weeks of application. -Discussed at length with that this is the expected reaction of the cream. Explained that the inflammation typically subsides approximately two weeks after topical fluorouracil is discontinued and that it typically takes four to six weeks (two to four weeks of which are active treatment) for the skin to progress through erythema, blistering, necrosis with erosion, and re- epithelialization. -Patient informed that he may stop application for a couple days for any severe inflammatory reaction, which may include bleeding or instense discomfort. (Triamcinolone oint 0.1% 2-4x/day PRN may be prescribed) -Goal of 4 weeks of therapy re-emphasized or until superficial erosion occurs. -Sun protection/avoidance measures stressed. -Patient encouraged to call with any questions or concerns. #Personal History of Non-Melanotic Skin Cancer: -No evidence of recurrence at surgical site -Full Body Skin Exam advised yearly -Photoprotection discussed -Patient instructed to follow up in clinic for any concerning lesions or changes #Seborrheic Keratoses: -The Noel was educated regarding the benign nature, but to return with any growth, change or symptoms in area. #Solar Lentigines -The was educated regarding the benign nature and relation to chronic sun exposure, but to return with any growth, change or symptoms in area. -Photoprotection discussed. #Shanks Angiomas: -The was educated regarding the benign nature, but to return with any growth, change or symptoms in area. RTC 6-12m, sooner PRN * Noel educated to RTC suraj if any new, changing, non-healing, or symptomatic lesions. * Education on sun protection and avoidance strategies was provided. * Encouraged monthly skin self exams for lesions changing in size, shape, or color, or non-healing lesions * Differential diagnosis, prescription options and risks/benefits were discussed with the patient, who consented to treatment plan. * Noel consented to photography for documentation if indicated. * A dermatoscope was used during the exam. * NUB = Neoplasm of Uncertain Behavior of Skin ------TIME ESTIMATION To include but not limied to: -Review of medical records -Time spent with patient including obtaining history, physical exam, shared decision making, procedures and counseling -Post visit documentation; HPI and physical exam findings, clinical researching, medical decision making, medication and lab ordering Total estimated time = 30 min ------- Medication Reconciliation: Outpatient: Has the patient been [...] list may not be complete. Please check [email or web address]. Allergies/ADRs (Tool #5) FACILITY ALLERGY/ADR -------- No Remote Allergy/ADR Data available for this patient IN [facility] [...] the patient into personal health records (i.e. [employer]) are NOT included in this list. Non-VA medications documented outside this [place], remote inpatient orders (regardless of status) and remote clinic medications are NOT included in this list. The patient and provider must always discuss medications the patient is taking, regardless of where the medication was dispensed or obtained. OUTPT BETHANECHOL CHLORIDE 25MG TAB (Status = Active/Suspended) TAKE TWO TABLETS BY MOUTH TWICE DAILY FOR URINARY RETENTION Rx# [id number] Last Released: 04/02/24 Qty/Days Supply: 360/ Rx Expiration Date: 01/11/25 Refills Remainin OUTPT CHLORTHALIDONE 25MG TAB (Status = Discontinued) TAKE ONE TABLET BY MOUTH ONCE DAILY TO REMOVE FLUID/CONTROL BLOOD PRESSURE Rx# [id number] Last Released: 02/08/24 Qty/Days Supply: Rx Expiration Date: 10/30/24 Refills Remainin OUTPT CHLORTHALIDONE 25MG TAB (Status = Active/Suspended) TAKE ONE TABLET BY MOUTH ONCE DAILY TO REMOVE FLUID/CONTROL BLOOD PRESSURE Rx# [id number] Last Released: 04/19/24 Qty/Days Supply: Rx Expiration Date: 03/10/25 Refills Remainin OUTPT CLONIDINE HCL 0.1MG TAB (Status = Discontinued) TAKE ONE TABLET BY MOUTH EVERY 12 HOURS TO CONTROL BLOOD PRESSURE Rx# [id number] Last Released: 12/20/23 Qty/Days Supply: Rx Expiration Date: 10/11/24 Refills Remainin Indication: FOR HIGH BLOOD PRESSURE OUTPT CLONIDINE HCL 0.1MG TAB (Status = Active/Suspended) TAKE ONE TABLET BY MOUTH EVERY 12 HOURS TO CONTROL BLOOD PRESSURE Rx# [id number] Last Released: 03/22/24 Qty/Days Supply: Rx Expiration Date: 03/10/25 Refills Remainin Indication: FOR HIGH BLOOD PRESSURE OUTPT DEXTROSE 24GM/31GM SQUEEZE TUBE (Status = Active) 1 TUBE BY MOUTH NEEDED FOR LOW BLOOD SUGAR Rx# [id number] Last Released: 05/07/24 Qty/Days Supply: 12/08 Rx Expiration Date: 03/10/25 Refills Remainin Indication: FOR LOW BLOOD SUGAR OUTPT FINASTERIDE 5MG TAB (Status = Discontinued) TAKE ONE TABLET BY MOUTH ONCE DAILY Rx# [id number] Last Released: 02/23/24 Qty/Days Supply: Rx Expiration Date: 01/11/25 Refills Remainin Non-VA FLUTICASONE NASAL SOLN,NASAL INSTILL INTO EACH NOSTRIL Non-VA medication not recommended by VA provider. OUTPT INSULIN,ASPART(EQV-NOVLG)1 00UN/ML FLXPEN (Status = Active) INJECT DIRECTED SUBCUTANEOUSLY THREE TIMES A DAY ACCORDING TO ICR OF 1 UNIT FOR EACH 9 GRAMS OF CARBS BEFORE BREAKFAST AND LUNCH AND 1 UNIT FOR EACH 10 GRAMS OF CARBS BEFORE DINNER MEAL Rx# [id number] Last Released: 05/07/24 Qty/Days Supply: Rx Expiration Date: 11/13/24 Refills Remainin Indication: FOR DIABETES OUTPT INSULIN,GLARGINE-YFGN 100UNIT/ML PEN 3ML (Status = Discontinued) INJECT 18 UNITS SUBCUTANEOUSLY ONCE DAILY Rx# [id number] Last Released: 11/01/23 Qty/Days Supply: Rx Expiration Date: 08/23/24 Refills Remainin Indication: FOR DIABETES OUTPT INSULIN,GLARGINE-YFGN 100UNIT/ML PEN 3ML (Status = Active) INJECT 11 UNITS SUBCUTANEOUSLY ONCE DAILY FOR DIABETES Rx# [id number] Last Released: 05/16/24 Qty/Days Supply: Rx Expiration Date: 03/05/25 Refills Remainin Indication: FOR DIABETES OUTPT LORAZEPAM 0.5MG TAB (Status = Discontinued) TAKE ONE TABLET BY MOUTH ONCE DAILY FOR ANXIETY Rx# [id number] Last Released: 04/20/24 Qty/Days Supply: 06/20 Rx Expiration Date: 04/24/24 Refills Remainin Indication: FOR ANXIETY OUTPT LORAZEPAM 0.5MG TAB (Status = Active) TAKE ONE TABLET BY MOUTH ONCE DAILY FOR ANXIETY Rx# [id number] Last Released: 05/13/24 Qty/Days Supply: 06/20 Rx Expiration Date: 11/08/24 Refills Remainin Indication: FOR ANXIETY OUTPT SEMAGLUTIDE 2MG/0.75ML INJ PEN 3ML (Status = Active) INJECT 2MG SUBCUTANEOUSLY ONCE A WEEK FOR TYPE 2 DIABETES MELLITUS Rx# [id number] Last Released: 04/22/24 QtDays Supply: 10/08 Rx Expiration Date: 11/13/24 Refills Remainin Indication: FOR TYPE 2 DIABETES MELLITUS OUTPT SILDENAFIL CITRATE 100MG TAB (Status = Active) TAKE ONE TABLET BY MOUTH ONCE DAILY NEEDED TAKE 1 HOUR PRIOR TO SEXUAL ACTIVITY Rx# [id number] Last Released: 05/07/24 Qty/Days Supply: 03/10 Rx Expiration Date: 03/10/25 Refills Remainin Indication: FOR ERECTILE DYSFUNCTION OUTPT SULFAMETHOXAZOLE 400/TRIMETH 80MG TAB (Status = ) TAKE 1 TABLET BY MOUTH ONCE DAILY Rx# [id number] Last Released: 03/28/24 Qty/ Supply: 06/20 Rx Expiration Date: 04/24/24 Refills Remainin OUTPT VALSARTAN 320MG TAB (Status = Discontinued) TAKE ONE TABLET BY MOUTH ONCE DAILY Rx# [id number] Last Released: 03/07/24 Qt Supply: Rx Expiration Date: 10/10/24 Refills Remainin OUTPT VALSARTAN 320MG TAB (Status = Active/Suspended) TAKE ONE TABLET BY MOUTH ONCE DAILY Rx# [id number] Last Released: Supply: Rx Expiration Date: 03/10/25 Refills Remainin SUPPLIES OUTPT ACCU-CHEK GUIDE (GLUCOSE) TEST STRIP (Status = Active) USE 1 STRIP TO TEST BLOOD SUGARS FOUR TIMES A DAY Rx# [id number] Last Released: 05/07/24 Qty/Days Supply: 200/50 Rx Expiration Date: 12/25/24 Refills Remainin OUTPT GLUCOSE SENSOR DEXCOM G7 (Status = Discontinued) USE 1 SENSOR DIRECTED EVERY 10 DAYS Rx# [id number] Last Released: 02/08/24 Qty/Days Supply: 12/08 Rx Expiration Date: 10/13/24 Refills Remainin OUTPT GLUCOSE SENSOR DEXCOM G7 (Status = Active) USE 1 SENSOR DIRECTED EVERY 10 DAYS Rx# [id number] Last Released: 03/07/24 Qty/Days Supply: Rx Expiration Date: 03/05/25 Refills Remainin OUTPT LANCET,SOFTCLIX (Status = Active) USE 1 LANCET DIRECTED FOUR TIMES A DAY TO TEST BLOOD SUGAR Rx# [id number] Last Released: 12/28/23 Qty/Days Supply: 200/50 Rx Expiration Date: 12/25/24 Refills Remainin OUTPT NEEDLE,PEN 31G,5MM (Status = Active) USE 1 NEEDLE SUBCUTANEOUSLY FOUR TIMES A DAY FOR USE WITH PEN DEVICE Rx# [id number] Last Released: 05/07/24 Qty/Days Supply: 400/90 Rx Expiration Date: 01/19/25 Refills Remainin /simone/ DENILSON GARCIA DNP, CYBER DEFENSE FORENSICS ANALYST-C NURSE PRACTITIONER Signed: 05/20/2024 07:56 DENILSON GARCIA [facility]
--- OUTSIDE RECORDS SUMMARY | 2024-08-21 23:31 | XMS_ITS | Encounter Summary ---
Author Name [place] Address [address] [place] [address] Care Team Providers Care Custodial Aide Name Role Phone MARIIA BROUSSARD Primary Care [...] Patient's Relationship to Policy [employer] ([id number]) PRESCRIPT ION [facility] Mar 11, 2018 [id number] MADAI DELUNA OTHER RELATIONSHIP [facility] PREFERRED PROVIDER ORGANIZAT ION (PPO) Jun 11, 2011 [id number] MADAI DELUNA PATIENT [employer]MANA [facility] (WNR) MEDICARE ADVANTAGE [facility] (WNR) Sep 11, 2022 [id number] [phone] GILL DELUNA PATIENT MEDICARE (WNR) MEDICARE (M) PART A January 10, 2012 PART A [id number] [place] PATIENT MEDICARE (WNR) MEDICARE (M) PART B January 10, 2012 PART B [id number] [phone] GILL DELUNA PATIENT MEDICARE (WNR) MEDICARE (M) PART A January 10, 2012 PART A [id number] GILL DELUNA PATIENT UNICARE PREFERRED PROVIDER ORGANIZAT ION (PPO) [place] RE STATE INDE* * Mar 11, 2015 [id number] MADAI DELUNA [facility] (WNR) MEDICARE ADVANTAGE [facility] (WNR) Mar 11, 2021 [id number] GILL DELUNA PATIENT [employer] [facility] (WNR) MEDICARE ADVANTAGE [facility] (WNR) Sep 11, 2021 [id number] GILL DELUNA PATIENT Selected Encounter This section includes the information on record at [place] for the Encounter. Date/Time Encounter Type Encounter Description Reason Pro vider Source Mar 25, 2024 12:00 AM Outpatient Encounter EVENT (HISTORICAL) IHE Encounter Template Text not used by [place] Plan of Treatment: Future Appointments (+ 6 [...] 16, 2024 11:30 AM AMBULATORY - MEDICINE [place] [facility] [facility] [place] [facility] Jun 11, 2024 08:30 AM [facility]ICINE [facility] Jun 18, 2024 02:15 PM AMBULATORY - MEDICINE [facility] Jun 20, 2024 10:45 AM AMBULATORY - MEDICINE [facility] Jul 03, 2024 09:30 AM AMBULATORY - MEDICINE [place] [facility] [facility] [place] [facility] Jul 16, 2024 09:40 AM AMBULATORY - MEDICINE IN C [place] [facility] [place] [facility] Jul 31, 2024 02:00 PM AMBULATORY - MEDICINE IN C [place] [facility] [place] [facility] Aug 16, 2024 11:00 AM AMBULATORY - MEDICINE IN C [place] [facility] [place] [facility] Aug 22, 2024 01:00 PM [facility] Aug 26, 2024 03:30 PM [facility] Active, Pending, and Scheduled Orders This section includes a listing of several types of active, pending, and scheduled orders, including clinic medications orders, diagnostic test orders, procedure orders and consult orders; where the start date of the order is 45 days before the date of the Encounter or 45 days after the date of theEncounter. The data comes from all [place] treatment facilities. Test Date/Time Test Type Test Details Facility Name May 03, 2024 03:01 PM Consult Order VISN 1 [facility] PS[facility]IATRY OUTPT IFC CT [employer] [facility] May 09, 2024 10:35 AM Consult Order COMMUNITY CARE-CARDIOLOGY [employer] [facility] Lab Results: [...] Range Comment Mar 01, 2024 10:53 AM [facility] HEMOGLOBIN A1C PANEL Specimen Type: BLOOD [...] Mar 01, 2024 10:14 AM Reporting Lab: [facility] [address] [facility] [address] Performing Lab: [address] [address] HEMOGLOBIN A1C 7.8 H 4.0-5.6 Mar 01, 2024 10:53 AM [facility] MICROALBUMIN CREATININE RATIO PANEL Specimen Type: URINE No comment entered. Ordering Provider: ARMSTRONG,BRANDON A A Report Released Date/Time: Mar 01, 2024 10:36 AM Reporting Lab: [facility] [address] [facility] [address] Performing Lab: [address] [address] MICROALBUMIN/C REATININE RATIO 13.2 mg/g 0-29.9 MICROALBUMIN,Q UANTITATIVE 0.7 mg/dL RR UNAVAIL CREATININE URINE 52.95 mg/dL Mar 01, 2024 10:53 AM [facility] LIPID PANEL FASTING Specimen Type: SERUM No comment entered. Ordering Provider: BRANDON ARMSTRONG Report Released Date/Time: Mar 01, 2024 10:33 AM Reporting Lab: [address] [address] Performing Lab: [address] [address] CHOLESTEROL 117 mg/dL TRIGLYCERIDE 94 mg/dL 0-150 LDL calculated 54 mg/dL 0-129 CHOL/HDL 2.7 HDL CHOLESTEROL 44 mg/dL 40-60 Mar 01, 2024 10:53 AM [facility] BASIC METABOLIC PANEL (non-fasting) Specimen Type: SERUM No comment entered. Ordering Provider: BRANDON ARMSTRONG Report Released Date/Time: Mar 01, 2024 10:14 AM Reporting Lab: [address] [address] Performing Lab: [address] [address] UREA NITROGEN 41 mg/dL H 7-25 GLUCOSE [...] 12, 2022 03:10 PM VA-TOBACCO NEVER USED [facility] Encounter Notes: All associated encounter notes This section contains the clinical notes associated to the Encounter. Date/Time Encounter Note(s) Provider Source Mar 25, 2024 12:00 AM NONVA CONSULT: LOCAL TITLE: COMMUNITY CARE-CONSULT RESULT NOTE STANDARD TITLE: NONVA CONSULT DATE OF NOTE: MAR 25, 2024 ENTRY DATE: MAY 29, 2024@13:56:40 AUTHOR: CHRISS KELLY COSIGNER: URGENCY: STATUS: COMPLETED VistA Imaging - Scanned Document SCANNED DOCUMENT SIGNATURE NOT REQUIRED Electronically Filed: 05/29/2024 by: ZAKIYA KELLY Roll Hand ZAKIYA KELLY [facility]
--- OUTSIDE RECORDS SUMMARY | 2024-08-21 23:31 | XMS_ITS | Encounter Summary ---
Author Name [facility] [place] Address [address] [place] [address] Care Team Providers Care Skidder Lever Operator Name Role Phone MARIIA BROUSSARD Primary [...] Patient's Relationship to Policy [employer] ([id number]) PRESCRIPT ION [facility] Mar 11, 2018 [id number] MADAI DELUNA OTHER RELATIONSHIP [facility] PREFERRED PROVIDER ORGANIZAT ION (PPO) Jun 11, 2011 [id number] MADAI DELUNA PATIENT [employer]NA [facility] (WNR) MEDICARE ADVANTAGE [facility] (WNR) Sep 11, 2022 [id number] [phone] GILL DELUNA PATIENT MEDICARE (WNR) MEDICARE (M) PART A January 10, 2012 PART A [id number] MIKIE GILL PATIENT MEDICARE (WNR) MEDICARE (M) PART B January 10, 2012 PART B [id number] GILL DELUNA PATIENT MEDICARE (WNR) MEDICARE (M) PART A January 10, 2012 PART A [id number] GILL DELUNA PATIENT UNICARE PREFERRED PROVIDER ORGANIZAT ION (PPO) [place] RE STATE INDE* * Mar 11, 2015 [id number] MADAI DELUNA [facility] (WNR) MEDICARE ADVANTAGE [facility] (WNR) Mar 11, 2021 [id number] GILL DELUNA PATIENT [facility] (WNR) MEDICARE ADVANTAGE [facility] (WNR) Sep 11, 2021 [id number] GILL DELUNA PATIENT Selected Encounter This section includes the information on record at [place] for the Encounter. Date/Time Encounter Type Encounter Description Reason Provider Source Jun 04, 2024 02:43 PM Outpatient Encounter HT NON-VIDEO MONITORING ICD-10-CM I11.9 Hypertensive heart disease without heart failure ALCIRA LAYNE [place] Encounter Template Text not used by [place] Assessments - Encounter Diagnoses This section includes the primary and secondary diagnoses documented for the Encounter. Date/Time Primary/Secondary Diagnosis Diagnosis Name Provider Source Jun 04, 2024 02:49 PM PRIMARY Hypertensive heart disease without heart failure [facility] Plan of Treatment: Future Appointments (+ 6 months) and Future Tests (+/- 45 days) The Plan of Treatment section includes future care activities for the patient from all [place] treatmentfacilities. This section includes future appointments and future orders which are active, pending or scheduled. Future Appointments This section includes appointments that were scheduled to occur 6 months from the date of the Encounter, up to a maximum of 20 appointments. The data comes from all [place] treatment facilities. Appointment Date/Time Appointment Type Appointme nt Facility Name Jun 11, 2024 08:30 AM AMBULATORY - MEDICINE [facility] Jun 18, 2024 02:15 PM AMBULATORY - MEDICINE [facility] Jun 20, 2024 10:45 AM AM[facility]UL[facility]ORY - MEDICINE [facility] Jul 03, 2024 09:30 AM [facility] Jul 16, 2024 09:40 AM [facility] [place] [facility] Jul 31, 2024 02:00 PM AMBULATORY - MEDICINE [place] [facility] [place] [facility] Aug 16, 2024 11:00 AM AMBULATORY - MEDICINE [place] [facility] [place] [facility] Aug 22, 2024 01:00 PM AMBULATORY - MEDICINE [facility] [place] [facility] Aug 26, 2024 03:30 PM AMBULATORY - MEDICINE [facility] [place] [facility] Oct 17, 2024 01:00 PM AMBULATORY - MEDICINE [facility] [place] [facility] Oct 24, 2024 10:30 AM AMBULATORY - PSYCHIATRY [place] [facility] [place] [facility] Oct 24, 2024 10:30 AM AMBULATORY [place] [facility] Oct 29, 2024 08:30 AM [...] of theEncounter. The data comes from all [place] treatment facilities. Test Date/Time Test Type Test Details Facility Name May 03, 2024 03:01 PM Consult Order VISN 1 [facility] PS[facility]IATRY OUTPT IFC CT Cons Social [facility] May 09, 2024 10:35 AM Consult Order COMMUNITY CARE-CARDIOLOGY Cons [facility] [employer] [facility] Jul 16, 2024 09:12 PM Consult Order COMMUNITY CARE-UROLOGY Cons Social Welfare Administrator[facility] Lab Results: +/- 30 days of the encounter This section includes the Chemistry and Hematology Lab Results on record with [place] for the patient. Radiology Reports and Pathology Reports are provided separately, in subsequent sections. Lab Results This section contains the Chemistry/Hematology Results that were resulted 30 days before or 30 daysafter the date of the Encounter. Date/Time Source Result Type Result - Unit Interpretation Reference Range Comment May 07, 2024 08:37 AM [facility] [place] PSA Specimen Type: SERUM No comment entered. Ordering Provider: MARIIA CABRAL Report Released Date/Time: May 04, 2024 12:14 AM Reporting Lab: [place] [address] [address] Performing Lab: [place] [facility] [address] [facility] [address] PSA 2.56 ng/mL 0.00-4.00 Social History: Smoking Status (Most current) and Tobacco Use (All prior to encounter date) This section includes the most current, and the historical, smoking and tobacco- related health factors from the [place] facility where the Encounter took place. Current Smoking Status This section includes the most current smoking, or tobacco-related health factor, from the [place] facility where the Encounter took place. Date/Time Current Smoking Status Comment Facil ity May 03, 2024 10:00 AM [facility]CO [facility] [place] [facility] Tobacco Use History This section includes a history of the smoking, or tobacco-related health factors, that were collected on or before the date of the Encounter. The data comes from the [place] facility where the Encounter took place. Date/Time Smoking Status/Tobacco Use Comment F acility Dec 12, 2022 03:10 PM VA-TOBACCO [facility] [place] [facility] Encounter Notes: All associated encounter notes This section contains the clinical notes associated to the Encounter. Date/Time Encounter Note(s) Provider Source Jun 04, 2024 02:44 PM CARE COORDINATION HOME TELEHEALTH SUMMARIZATION NOTE: LOCAL TITLE: HT MONTHLY MONITOR NOTE STANDARD TITLE: CARE COORDINATION HOME TELEHEALTH SUMMARIZATION DATE OF NOTE: JUN 04, 2024@14:44 ENTRY DATE: JUN 04, 2024@14:44:19 AUTHOR: ALCIRA LAYNE EXP COSIGNER: URGENCY: STATUS: COMPLETED The is enrolled in the Home Telehealth (HT) program and continues to be monitored via HT technology. The data sent by the is reviewed and analyzed by the staff, who provide ongoing case management and [place] health education while communicating and collaborating with the health care team as appropriate. This note covers a total of 30 minutes for the month monitored. Month monitored: May 2024 Dx: Hypertension /es/ LLOYD AlbertN, RN RPM-Home Telehealth Ladle Car Operator Signed: 06/04/2024 14:[address]
--- OUTSIDE RECORDS SUMMARY | 2024-08-21 23:31 | XMS_ITS | Encounter Summary ---
Author Name [facility] [place] [facility] [place] [facility] [place] Address [address] [place] [address] Care Team Providers Care Scuba Diving Teacher Name Role Phone MARIIA BROUSSARD Primary [...] Patient's Relationship to Policy [employer] ([id number]) PRESCRIPT ION [facility] Mar 11, 2018 [id number] MADAI DELUNA OTHER RELATIONSHIP [facility] PREFERRED PROVIDER ORGANIZAT ION (PPO) Jun 11, 2011 [id number] MADAI DELUNA PATIENT [employer] [facility] (WNR) MEDICARE ADVANTAGE [facility] (WNR) Sep 11, 2022 [id number] [phone] GILL DELUNA PATIENT MEDICARE (WNR) MEDICARE (M) PART A January 10, 2012 PART A [id number] [place]ILL [place]NA PATIENT MEDICARE (WNR) MEDICARE (M) PART B January 10, 2012 PART B [id number] [place] PATIENT MEDICARE (WNR) MEDICARE (M) PART A January 10, 2012 PART A [id number] GILL DELUNA PATIENT UNICARE PREFERRED PROVIDER ORGANIZAT ION (PPO) [place] RE STATE INDE* * Mar 11, 2015 [id number] MADAI DELUNA SPOUSE [facility] (WNR) MEDICARE ADVANTAGE [facility] (WNR) Mar 11, 2021 [id number] GILL DELUNA PATIENT [facility] (WNR) MEDICARE ADVANTAGE [facility] (WNR) Sep 11, 2021 [id number] GILL DELUNA PATIENT Selected Encounter This section includes the information on record at [place] for the Encounter. Date/Time Encounter Type Encounter Description Reason Provider Source May 23, 2024 10:27 AM PRO PHONE CALL 5-10 MIN TELEPHONE/MEDICIN E ICD-10-CM I11.9 Hypertensive heart disease without heart failure ALCIRA LAYNE [place] Encounter Template Text not used by [place] Assessments - Encounter Diagnoses This section includes the primary and secondary diagnoses documented for the Encounter. Date/Time Primary/Secondary Diagnosis Diagnosis Name Provider Source May 23, 2024 10:27 AM PRIMARY Hypertensive heart disease without heart [facility] Plan of Treatment: Future Appointments (+ 6 months) and Future Tests (+/- 45 days) The Plan of Treatment section includes future care activities for the patient from all [place] treatmentfacilities. This section includes future appointments and future orders which are active, pending or scheduled. Future Appointments This section includes appointments that were scheduled to occur 6 months from the date of the Encounter, up to a maximum of 20 appointments. The data comes from all [place] treatment facilities. Appointment Date/Time Appointment Type Appointme nt Facility Name Jun 11, 2024 08:30 AM [facility] [place] Jun 18, 2024 02:15 PM [facility] [place] Jun 20, 2024 10:45 AM [facility] [place] Jul 03, 2024 09:30 AM AM[facility]ULATORY - [facility]IC[facility] [place] [facility] [place] [facility] Jul 16, 2024 09:40 AM AM[facility]ULATORY - MEDICINE [place] [facility] [place] [facility] Jul 31, 2024 02:00 PM [facility]ULATORY - MEDICINE [facility] [place] [facility] Aug 16, 2024 11:00 AM [facility] [place] [facility] Aug 22, 2024 01:00 PM AMBULATORY - MEDICINE [facility] [place] [facility] Aug 26, 2024 03:30 PM [facility]UL[facility] - [facility]ICINE [facility] [place] [facility] Oct 17, 2024 01:00 PM AMBULATORY - MEDICINE [facility] [place] [facility] Oct 24, 2024 10:30 AM AMBULATORY - PSYCHIATRY [facility] [place] [facility] Oct 24, 2024 10:30 AM [facility] [facility] Oct 29, 2024 08:30 AM AMBULATORY [...] of theEncounter. The data comes from all [place] treatment facilities. Test Date/Time Test Type Test Details Facility Name May 03, 2024 03:01 PM Consult Order [facility]AT[facility] OUTPT IFC CT Cons Ssn/Ssbn Assistant Navigator's Choice [place] May 09, 2024 10:35 AM Consult Order [facility]-CARDIOLOGY Cons Ssn/Ssbn Assistant Navigator's Choice [place] Lab Results: +/- 30 days of the encounter This section includes the Chemistry and Hematology Lab Results on record with [place] for the patient. Radiology Reports and Pathology Reports are provided separately, in subsequent sections. Lab Results This section contains the Chemistry/Hematology Results that were resulted 30 days before or 30 daysafter the date of the Encounter. Date/Time Source Result Type Result - Unit Interpretation Reference Range Comment May 07, 2024 08:37 AM [place] PSA Specimen Type: SERUM No comment entered. Ordering Provider: MARIIA ABBOTT Report Released Date/Time: May 04, 2024 12:14 AM [facility] [address] [address] Performing Lab: [facility] [address] PSA 2.56 ng/mL 0.00-4.00 May 03, 2024 01:53 PM [place] LIPID PANEL FASTING Specimen Type: SERUM No comment entered. Ordering Provider: MARIIA ABBOTT Report Released Date/Time: Oct 30, 2023 05:07 PM Reporting Lab: [address] [address] Performing Lab: [address] [address] CHOLESTEROL 108 mg/dL TRIGLYCERIDE 79 mg/dL 0-150 LDL calculated 47 mg/dL 0-129 CHOL/HDL 2.4 HDL CHOLESTEROL 45 mg/dL 40-60 May 03, 2024 01:53 PM [place] BASIC METABOLIC PANEL (fasting) Specime n Type: SERUM No comment entered. Ordering Provider: MARIIA ABBOTT Report Released Date/Time: Oct 30, 2023 05:07 PM Reporting Lab: [address] [address] Performing Lab: [address] [address] UREA NITROGEN 46 mg/dL H 7-25 GLUCOSE 294 mg/dL H 65-100 SODIUM 137 mmol/L 135-145 POTASSIUM 4.4 mmol/L 3.5-5.0 CHLORIDE 105 mmol/L 100-110 CO2 21 meq/L 20-30 CREATININE, Serum 1.05 mg/dL 0.50-1.40 eGFR(CKD-EPI 2020) 73 mL/min >60 May 03, 2024 01:53 PM [place] HEMOGLOBIN A1C PANEL Specimen Type: BLOOD Comment: [...] Oct 30, 2023 05:07 PM Reporting [facility] [address] [facility] [address] Performing Lab: [facility] [address] [facility] [address] HEMOGLOBIN A1C 8.1 H 4.0-5.6 May 03, 2024 01:53 PM [place] LIVER FUNCTION Specimen Type: SERUM No comment entered. Ordering Provider: MARIIA ABBOTT Report Released Date/Time: Oct 30, 2023 05:07 PM Reporting Lab: [facility] [address] [facility] [address] Performing Lab: [facility]ITALUSE[address] [address] PROTEIN,TOTAL 7.3 g/dL 6.0-8.3 ALBUMIN 3.8 g/dL 3.5-5.0 ALKALINE PHOSPHATASE 73 U/L 40-150 AST 21 U/L 5-34 ALT 22 U/L BILIRUBIN, TOTAL 0.5 mg/dL 0.2-1.2 May 03, 2024 01:53 PM [place] TSH Specimen Type: SERUM No comment entered. Ordering Provider: MARIIA ABBOTT Report Released Date/Time: Oct 30, 2023 05:07 PM Reporting Lab: [facility] [address] [facility] [address] Performing Lab: [facility]ITALUSE[address] [address] TSH 1.73 u[IU]/mL 0.35-5.00 May 03, 2024 01:53 PM [place] VITAMIN D (25-OH) Specimen Type: SERUM No comment entered. Ordering Provider: MARIIA ABBOTT Report Released Date/Time: Oct 30, 2023 05:07 PM Reporting Lab: [facility] [address] [facility] [address] Performing Lab: [facility]RN[facility]ERN [address] [address] VITAMIN D (25-OH) 24 ng/mL 20-50 May 03, 2024 01:53 PM [place] CALCIUM Specimen Type: SERUM No comment entered. Ordering Provider: MARIIA ABBOTT Report Released Date/Time: Oct 30, 2023 05:07 PM Reporting Lab: [address] [address] Performing Lab: [address] [address] CALCIUM 9.7 mg/dL 8.5-10.2 May 03, 2024 01:53 PM [place] MICROALBUMIN CREATININE RATIO PANEL Spe cimen Type: URINE No comment entered. Ordering Provider: MARIIA ABBOTT Report Released Date/Time: Oct 30, 2023 05:07 PM Reporting Lab: [address] [address] Performing Lab: [address] [address] MICROALBUMIN/C REATININE RATIO 128.4 mg/g H 0-29.9 MICROALBUMIN,Q UANTITATIVE 5.4 mg/dL RR UNAVAIL CREATININE URINE 42.05 mg/dL May 03, 2024 01:53 PM [place] CBC AND DIFF (AUTO) Specimen Type: BLOOD No comment entered. Ordering Provider: MARIIA ABBOTT Report Released Date/Time: Oct 30, 2023 05:07 PM Reporting Lab: [address] [address] Performing Lab: [address] [address] WBC 6.25 10*3/uL 4.50-11.00 RBC 5.12 10*6/uL [...] and tobacco- related health factors from the [place] facility where the Encounter took place. Current Smoking Status This section includes the most current smoking, or tobacco-related health factor, from the [place] facility where the Encounter took place. Date/Time Current Smoking Status Comment Nadine jose May 03, 2024 10:00 AM [facility]-TOBACCO NEVER USED [facility] Tobacco Use History This section includes a history of the smoking, or tobacco-related health factors, that were collected on or before the date of the Encounter. The data comes from the [place] facility where the Encounter took place. Date/Time Smoking Status/Tobacco Use Comment F del Dec 12, 2022 03:10 PM VA-TOBACCO NEVER USED [facility] Encounter Notes: All associated encounter notes This section contains the clinical notes associated to the Encounter. Date/Time Encounter Note(s) Provider Source May 23, 2024 10:27 AM CARE COORDINATION HOME TELEHEALTH FOLLOW-UP NOTE: LOCAL TITLE: HT INTERVENTION NOTE STANDARD TITLE: CARE COORDINATION HOME TELEHEALTH FOLLOW-UP NOTE DATE OF NOTE: MAY 23, 2024@10:27 ENTRY DATE: MAY 23, 2024@10:27:11 AUTHOR: ALCIRA ALYNEIGNER: URGENCY: STATUS: COMPLETED [place] is actively enrolled in the Home Telehealth program. Review of data shows the following out of range responses: GILL DELUNA (-[id number]) Vital Sign for: 04/24/2024 - 05/23/2024 (All times are EST; All weights are lbs) Primary DMP: VHA-HTN Comorbid(s): Summary Weight Sys BP Barnett BP HR Pain High 175.6 156 85 107 Low 169.2 107 58 42 Average 172.2 132 75 82 Date Time Wt Time Sys Barnett Time HR Time Pain 05/21/2024 20:00 175.6 23:59 156/83 23:59 86 05/14/2024 22:12 172.4 22:11 145/76 22:11 69 05/10/2024 22:34 171.8 22:32 136/85 22:32 76 05/08/2024 23:21 172.4 23:20 116/69 23:20 85 05/07/2024 - 22:57 126/74 22:57 93 05/06/2024 - 23:55 130/81 23:55 97 05/06/2024 [...] 04/27/2024 00:41 173.2 00:40 111/62 00:40 64 Source: [employer] [facility]; [employer] System Assessment: Hypertension Called [place] ([place] identified by full name and date of ) to review data and assess for any symptoms, changes, questions or concerns. [place] reports he is feeling well. [place] denies headaches, dizziness, lightheadedness, flushing of face, ear/jaw/neck/arm pain or discomfort, chest pain, shortness of breath, palpitations, racing of heart, unusual fatigue or weakness. He reports he has been taking medications as prescribed and monitoring salt intake. He reports he has a problem with his eyes called K-band and was referred to a cornea specialist by his comminuty opthalmologist Dr. Anuel Azul in [place], [place]. He reports next available appointment is not until December/January of 2025. [place] is currently at work and unable to complete HT health check until later tonight. Intervention(s)/Plan: Reviewed/Educated [place] of the following: Signs/symptoms of hypertension, risks, treatment, when and where to seek help (call provider vs. ). Normal blood pressure: less than 120/80 Target goal for blood pressure: less than 140/90 Call your provider's office if your systolic pressure (top number) is frequently over 140. Call your provider's office if your diastolic pressure (bottom number) is frequently over 90. Instructed to take all medications as ordered. Effects of sodium and caffeine on blood pressure, importance of maintaining low sodium diet (less than 2000mg per day) and avoiding caffeine. ydrate well with water throughout the day (at least 64 ounces daily). Complete health check daily and as needed. Transmit all data to for review/monitoring. verbalized understanding of education and denied questions or concerns. Forwarding to provider for review. TYPE OF ENCOUNTER: Telephone Length of call: 5-10 minutes [employer]LE HE[employer] COACHING SKILLS Coaching or Motivational Interviewing skills used. /simone/ KAVITHA Albert, RN [facility]-Home Telehealth Stringed Instrument Repairer Signed: 06/14/2024 07:34 ALCIRA LAYNE [place] [facility]
--- OUTSIDE RECORDS SUMMARY | 2024-08-21 23:31 | XMS_ITS | Encounter Summary ---
Author Name [facility] [place] [facility] Address [address] [place] [address] Care Team Providers Care Glazier Apprentice Name Role Phone MARIIA BROUSSARD Primary Care [...] Patient's Relationship to Policy [employer] EXPRESS S[employer]IPTS ([id number]) PRESCRIPT ION [facility] Mar 11, 2018 [id number] [phone] MADAI DELUNA OTHER RELATIONSHIP [facility] PREFERRED PROVIDER ORGANIZAT ION (PPO) Jun 11, 2011 [id number] MADAI DELUNA PATIENT HUMANA MCR (WNR) MEDICARE ADVANTAGE MCR (WNR) Sep 11, 2022 [id number] [place] PATIENT MEDICARE (WNR) MEDICARE (M) PART A January 10, 2012 PART A [id number] [phone] [place] PATIENT MEDICARE (WNR) MEDICARE (M) PART B January 10, 2012 PART B [id number] [place] PATIENT MEDICARE (WNR) MEDICARE (M) PART A January 10, 2012 PART A [id number] GILL DELUNA PATIENT [employer] PREFERRED PROVIDER ORGANIZAT ION (PPO) CRISTHIAN LEAH GU* * Mar 11, 2015 [id number] MADAI DELUNA SPOUSE [facility] (WNR) MEDICARE ADVANTAGE MCR ([facility]) Mar 11, 2021 [id number] GILL DELUNA PATIENT [facility] (WNR) MEDICARE ADVANTAGE [facility] (WNR) Sep 11, 2021 [id number] GILL DELUNA PATIENT Selected Encounter This section includes the information on record at [place] for the Encounter. Date/Time Encounter Type Encounter Description Reason Provider Source Jun 11, 2024 08:30 AM OFFICE O/P EST LOW 20 MIN PODIATRY ICD-10-CM L60.0 Ingrowing nail TEVIN SHAY Belle Encounter Template Text not used by [place] Assessments - Encounter Diagnoses This section includes the primary and secondary diagnoses documented for the Encounter. Date/Time Primary/Secondary Diagnosis Diagnosis Name Provider Source Jun 11, 2024 09:01 AM PRIMARY Ingrowing nail TEVIN SHAY Jun 11, 2024 09:01 AM SECONDARY Pain in left toe(s) TEVIN SHAY Jun 11, 2024 09:01 AM SECONDARY Pain in right toe(s) TEVIN SHAY Jun 11, 2024 09:01 AM SECONDARY Type 2 diabetes mellitus without complications TEVIN SHAY Plan of Treatment: Future Appointments [...] Appointment Type Appointme nt Facility Name Jun 18, 2024 02:15 PM [facility]ATORY [facility]ICINE [facility] Jun 20, 2024 10:45 AM [facility] Jul 03, 2024 09:30 AM [facility] [place] [facility] Jul 16, 2024 09:40 AM AM[facility]ULATORY [facility] MEDIC[facility] [place] [facility] Jul 31, 2024 02:00 PM AMBULATORY [facility] MEDICINE [facility] [place] [facility] Aug 16, 2024 11:00 AM AM[facility]ULATORY [facility]ICINE [facility] [place] [facility] Aug 22, 2024 01:00 PM AM[facility]ULATORY [facility] MEDICINE [facility] [place] [facility] Aug 26, 2024 03:30 PM AM[facility]ULATORY [facility] MEDICINE [facility] [place] [facility] Oct 17, 2024 01:00 PM AMBULATORY - MEDICINE [facility] [place] [facility] Oct 24, 2024 10:30 AM AMBULATORY - PS[facility]CHIATRY [facility] [place] [facility] Oct 24, 2024 10:30 AM AMBULATORY [place] [facility] Oct 29, 2024 08:30 AM AMBULATORY - [...] 1 [facility] PSYCHIATRY OUTPT IFC CT Cons Doctor Of Osteopathy[facility] May 09, 2024 10:35 AM Consult Order COMMUNITY CARE-CARDIOLOGY Cons [facility] Jul 16, 2024 09:12 PM Consult Order COMMUNITY CARE-UROLOGY Cons [facility] Social History: Smoking Status (Most current) and [...] Nadine jose Jul 06, 2021 09:30 AM [place]-TOBACCO NEVER USED [place] Tobacco Use History This section includes a history of the smoking, or tobacco-related health factors, that were collected on or before the date of the Encounter. The data comes from the [place] facility where the Encounter took place. Date/Time Smoking Status/Tobacco Use Comment F acility Apr 30, 2020 01:00 PM VA-TOBACCO FORMER USER [place] Apr 30, 2020 01:00 PM VA-TOBACCO QUIT 15 YRS OR MORE [place] January 09, 2019 02:16 PM VA-TOBACCO FORMER USER [place] January 09, 2019 02:16 PM VA-TOBACCO QUIT 15 YRS OR MORE [place] Feb 13, 2018 11:05 AM QUIT TOBACCO USE > 7 YEARS AGO [place] Feb 28, 2017 01:42 PM LIFETIME NON-TOBACCO USER quit 1976 [place] Nov 17, 2015 09:53 AM QUIT TOBACCO USE > 7 YEARS AGO [place] February 08, 2002 03:04 PM QUIT TOBACCO USE > 7 YEARS AGO Patient states he smoked from age [age] and quit. [place] Aug 10, 2001 03:42 PM NON-TOBACCO USER Stopped tobacco 35 years ago [place] Encounter Notes: All associated encounter notes This section contains the clinical notes associated to the Encounter. Date/Time Encounter Note(s) Provider Source Jun 11, 2024 09:02 AM PODIATRY NOTE: LOCAL TITLE: PODIATRY PAVE FOOT EXAM STANDARD TITLE: PODIATRY NOTE DATE OF NOTE: JUN 11, 2024@09:02 ENTRY DATE: JUN 11, 2024@09:02:15 AUTHOR: TEVIN SHAY COSIGNER: URGENCY: STATUS: COMPLETED PAVE FOOT EXAM A foot risk level was completed. The following risk level was identified for this patient: +POD RISK SCORE+ * --LEVEL 0 - (NORMAL RISK)* Normal sensation and circulation No foot deformity or foot infection No ulceration, nor history of ulceration, osteomyelitis, or amputation No Charcot joint disease with foot deformity No chronic kidney disease, or less than CKD 4 FOOT EDUCATION: 1. Explained the importance of daily foot checks. Explained that loss of sensation leads to callouses. Callouses break down, which result in ulcers that may lead to gangrene and amputation. 2. Stressed the importance of daily foot hygiene. Warm (not hot) bathing of the feet, complete drying and thorough inspection for changes in the condition of the skin constitute daily foot care. Demonstrated how to do a thorough foot check. 3. Emphasized the use of clean, non-restrictive socks/stockings and well fitting shoes. 4. Stressed the importance of immediate follow-up of any foot injuries or ulcers. Explained that he/she should be non-weight bearing whenever there are lesions on the foot, to prevent cellular damage. Level of Understanding: Nick /simone/ TEVIN SHAY DPM PHYSICS AND ASTRONOMY PROFESSOR Signed: 06/11/2024 09:03 TEVIN SHAY Jun 11, 2024 07:26 AM PODIATRY NOTE: LOCAL TITLE: PODIATRY NOTE STANDARD TITLE: PODIATRY NOTE DATE OF NOTE: JUN 11, 2024@07:26 ENTRY DATE: JUN 11, 2024@07:26:48 AUTHOR: TEVIN SHAY EXP COSIGNER: URGENCY: STATUS: COMPLETED NOTE: PATIENT HAS HAS RECEIVED BOTH COVID-19 VACCINE DOSES +2 BOOSTERS AT [facility] LAST SEEN FOR TREATMENT: 01/22/2024 S: Pt. is a 79 yo alert [facility] M[facility] who presents for continued podiatric EVALUATION [...] TEMPLATE FOR COMPLETE LIST NEEDED. *NOTE: A1c =8.1 (LAST SEEN: 04/2024) ZIK=012QL RISK=2 HEIGHT:200.5 lb [91.1 kg] (07/12/2017 09:07) [...] present physical-medical status. Protective sensation utilizing a [place]-Germaine lOg monofilament is 10/10 bilateral. Exams are reviewed and noted to be unchanged since last visit and determined to be non-contributory to the cc . *NOTE: *YEARLY COMPLETE PAVE EXAM PERFORMED TODAY - SEE BELOW. A: Clinical Impression is painful onychocryptic nails & NO hyperkeratosis of the heels AT THIS TIME as noted above in the presence of [id number]. P: Treatment consists of trimming-reduction of all nails via manual & electric means with excision of the offending nails borders and curetting the nail grooves. All care rendered without complications & pt. [...] tips for utilization between visits. RTC 24 WEEKS(10/29@ 8:30AM) *REVIEWED HOME FOOT CARE FEET ARE IN EXCELLENT CONDITION AND I PROVIDED HIM WITH WRITTEN RECOMMENDATIONS FOR FOOT CARE TO BE REVIEWED AT HOME (FOOT CARE TIPS). *DISCUSSED NEW PROTOCOLS AND CALLED LIEN FOR RESCHEDULING TODAY I DISCUSSED THE FINDINGS & PLAN WITH PATIENT (UNCHANGED SINCE PREVIOUS VISIT) & PATIENT AGREES AND UNDERSTANDS PLAN * NOT IN NEED OF MIRROR DISCUSSED SOMEPOLITICS, SOCIAL CONCERNS AND OUR EARLY DAYS OF FUN & MY CONTINUED LACK OF GOLF AND HE WOULD LIKE TO GET TOGETHER AND PLAY Medication Reconciliation: PERFORMED TODAY - SEE BELOW. Outpatient: Has the patient been taking medications as documented in the EMLR? YES: The patient has been taking medications as documented in the EMLR. Essential Medication List for Review used to complete this medication reconciliation. INCLUDED IN THIS LIST: Alphabetical list of active outpatient prescriptions dispensed from this [facility] (local) and dispensed from another [place] or [facility] facility (remote) as well as inpatient orders [...] Remote Allergy/ADR Data available for this patient [facility] [place] [facility] LISINOPRIL [facility] METFORMIN [facility] NIFEDIPINE Med Recon NoGlossary (Tool #1) INCLUDED IN THIS LIST: Alphabetical list of active outpatient prescriptions dispensed from this VA (local) and dispensed from another [place] or [facility] facility (remote) as well as inpatient orders (local pending and active), local clinic medications, locally documented non-VA medications, and local prescriptions that have or been discontinued in the past 90 days. Non-VA Meds Last Documented On: Dec 22, 2020 NOTE The display of VA prescriptions dispensed from another [place] or [facility] facility (remote) is limited to active outpatient prescription entries matched to National Drug File at the originating site and may not include some items such as investigational drugs, compounds, etc. NOT INCLUDED IN THIS LIST: Medications self-entered by the patient into personal health records (i.e. [employer]) are NOT included in this list. Non-VA medications documented outside this [place], remote inpatient orders (regardless of status) and remote clinic medications are NOT included in this list. The patient and provider must always discuss medications the patient is taking, regardless of where the medication was dispensed or obtained. OUTPT BETHANECHOL CHLORIDE 25MG TAB (Status = Active/Suspended) TAKE TWO TABLETS BY MOUTH TWICE DAILY FOR URINARY RETENTION Rx# [id number] Last Released: 04/02/24 Qty/Days Supply: 360 Rx Expiration Date: 01/11/25 Refills Remainin OUTPT CHLORTHALIDONE 25MG TAB (Status = Active/Suspended) TAKE ONE TABLET BY MOUTH ONCE DAILY TO REMOVE FLUID/CONTROL BLOOD PRESSURE Rx# [id number] Last Released: 04/19/24 Qty/Days Supply: 90 Rx Expiration Date: 03/10/25 Refills Remainin OUTPT CLONIDINE HCL 0.1MG TAB (Status = Active) TAKE ONE TABLET BY MOUTH EVERY 12 HOURS TO CONTROL BLOOD PRESSURE Rx# [id number] Last Released: 06/07/24 Qty/Days Supply: 180/ Rx Expiration Date: 03/10/25 Refills Remainin Indication: FOR HIGH BLOOD PRESSURE OUTPT DEXTROSE 24GM/31GM SQUEEZE TUBE (Status = Active) 1 TUBE BY MOUTH NEEDED FOR LOW BLOOD SUGAR Rx# [id number] Last Released: 05/07/24 Qty/Days Supply: 12/08 Rx Expiration Date: 03/10/25 Refills Remainin Indication: FOR LOW BLOOD SUGAR OUTPT FINASTERIDE 5MG TAB (Status = Discontinued) TAKE ONE TABLET BY MOUTH ONCE DAILY Rx# [id number] Last Released: 02/23/24 Qty/Days Supply: Rx Expiration Date: 01/11/25 Refills Remainin OUTPT FLUOROURACIL 5% CREAM (Status = Active) APPLY A THIN LAYER TOPICALLY TWICE DAILY APPLY TO AFFECTED AREAS FOR 2-4 WEEKS OR UNTIL SUPERFICIAL EROSION OCCURS Rx# [id number] Last Released: 05/22/24 Qty/Days Supply: Rx Expiration Date: 06/19/24 Refills Remainin Indication: FOR ROUGHENED RED PATCHES OF SKIN Non-VA FLUTICASONE NASAL SOLN,NASAL INSTILL INTO EACH NOSTRIL Non-VA medication not recommended by VA provider. OUTPT INSULIN,ASPART(EQV-NOVLG)100UN/ML FLXPEN (Status = Active) INJECT DIRECTED SUBCUTANEOUSLY THREE TIMES A DAY ACCORDING TO ICR OF 1 UNIT FOR EACH 9 GRAMS OF CARBS BEFORE BREAKFAST AND LUNCH AND 1 UNIT FOR EACH 10 GRAMS OF CARBS BEFORE DINNER MEAL Rx# [id number] Last Released: 05/07/24 Qty/Days Supply: Rx Expiration Date: 11/13/24 Refills Remainin Indication: FOR DIABETES OUTPT INSULIN,GLARGINE-YFGN 100UNIT/ML PEN 3ML (Status = Active) INJECT 11 UNITS SUBCUTANEOUSLY ONCE DAILY FOR DIABETES Rx# [id number] Last Released: 05/16/24 Qty/Days Supply: Rx Expiration Date: 03/05/25 Refills Remainin Indication: FOR DIABETES OUTPT LORAZEPAM 0.5MG TAB (Status = Discontinued) TAKE ONE TABLET BY MOUTH ONCE DAILY FOR ANXIETY Rx# [id number] Last Released: 04/20/24 Qty/Days Supply: 06/20 Rx Expiration Date: 04/24/24 Refills Remainin Indication: FOR ANXIETY OUTPT LORAZEPAM 0.5MG TAB (Status = Active) TAKE ONE TABLET BY MOUTH ONCE DAILY FOR ANXIETY Rx# [id number] Last Released: 06/05/24 Qty/Days Supply: 06/20 Rx Expiration Date: 11/08/24 Refills Remainin Indication: FOR ANXIETY OUTPT SEMAGLUTIDE 2MG/0.75ML INJ PEN 3ML (Status = Active) INJECT 2MG SUBCUTANEOUSLY ONCE A WEEK FOR TYPE 2 DIABETES MELLITUS Rx# [id number] Last Released: 04/22/24 Qty/Days Supply: 10/08 Rx Expiration Date: 11/13/24 Refills Remainin Indication: FOR TYPE 2 DIABETES MELLITUS OUTPT SILDENAFIL CITRATE 100MG TAB (Status = Active) TAKE ONE TABLET BY MOUTH ONCE DAILY NEEDED TAKE 1 HOUR PRIOR TO SEXUAL ACTIVITY Rx# [id number] Last Released: 05/07/24 Qty/Days Supply: 03/10 Rx Expiration Date: 03/10/25 Refills Remainin Indication: FOR ERECTILE DYSFUNCTION OUTPT SULFAMETHOXAZOLE 400/TRIMETH 80MG TAB (Status = ) TAKE 1 TABLET BY MOUTH ONCE DAILY Rx# [id number] Last Released: 03/28/24 Qty/Days Supply: 06/20 Rx Expiration Date: 04/24/24 Refills Remainin OUTPT VALSARTAN 320MG TAB (Status = Active) TAKE ONE TABLET BY MOUTH ONCE DAILY Rx# [id number] Last Released: 06/07/24 Qty/Days Supply: Rx Expiration Date: 03/10/25 Refills Remainin SUPPLIES OUTPT ACCU-CHEK GUIDE (GLUCOSE) TEST STRIP (Status = Active) USE 1 STRIP TO TEST BLOOD SUGARS FOUR TIMES A DAY Rx# [id number] Last Released: 05/07/24 Qty/Days Supply: 200/50 Rx Expiration Date: 12/25/24 Refills Remainin OUTPT GLUCOSE SENSOR DEXCOM G7 (Status = Active) USE 1 SENSOR DIRECTED EVERY 10 DAYS Rx# [id number] Last Released: 05/21/24 Qty/Days Supply: 9 Rx Expiration Date: 03/05/25 Refills Remainin OUTPT LANCET,SOFTCLIX (Status = Active) USE 1 LANCET DIRECTED FOUR TIMES A DAY TO TEST BLOOD SUGAR Rx# [id number] Last Released: 12/28/23 Qty/Days Supply: 200/50 Rx Expiration Date: 12/25/24 Refills Remainin OUTPT NEEDLE,PEN 31G,5MM (Status = Active) USE 1 NEEDLE SUBCUTANEOUSLY FOUR TIMES A DAY FOR USE WITH PEN DEVICE Rx# [id number] Last Released: 05/07/24 Qty/Days Supply: 400/90 Rx Expiration Date: 01/19/25 Refills Remainin PAVE Foot Check: A complete foot check [...] compromise like pain, pallor, parasthesia or paralysis. Present (even if diminished) Comment: DP & PT PULSES WNL BILAT SENSORY CHECK: Includes 10 gram Monofilament (Mill[place]-Germaine) test of sensation. Intact (Greater than or equal to 80% of sites checked) Abnormal (Less than 80% of sites checked): Intact Comment: WNL BILAT LOW-RISK: LOW RISK INFORMATION PROVIDED: 1. Advised patient not to walk barefoot. 2. Explained the importance of daily foot checks for changes. 3. Stressed the importance of daily foot hygiene, including bathing and complete drying. The patient verbalized understanding and was offered a detailed handout on diabetic foot care. /simone/ TEVIN SHAY DPM PHYSICS AND ASTRONOMY PROFESSOR Signed: 06/11/2024 09:02 TEVIN SHAY
--- OUTSIDE RECORDS SUMMARY | 2024-08-21 23:31 | XMS_ITS | Encounter Summary ---
Author Name [facility] [place] [facility] [place] Address [address] [place] [address] Care Team Providers Care Hat Stock Laminating Machine Operator Name Role Phone MARIIA RBOUSSARD Primary Care Provide r Unavailable Insurance Providers: [...] Patient's Relationship to Policy [employer] S[employer]IPTS ([id number]) PRESCRIPT ION [facility] Mar 11, 2018 [id number] [phone] MADAI DELUNA OTHER RELATIONSHIP [facility] PREFERRED PROVIDER ORGANIZAT ION (PPO) Jun 11, 2011 [id number] MADAI DELUNA PATIENT HUMANA [facility] (WNR) MEDICARE ADVANTAGE [facility] (WNR) Sep 11, 2022 [id number] [phone] GILL DELUNA PATIENT MEDICARE (WNR) MEDICARE (M) PART A January 10, 2012 PART A [id number] [place] PATIENT MEDICARE (WNR) MEDICARE (M) PART B January 10, 2012 PART B [id number] GILL DELUNA PATIENT MEDICARE (WNR) MEDICARE (M) PART A January 10, 2012 PART A [id number] GILL DELUNA PATIENT UNICARE PREFERRED PROVIDER ORGANIZAT ION (PPO) [facility] RE STATE IN[facility]* * Mar 11, 2015 [id number] MADAI DELUNA SPOUSE [facility] (WNR) MEDICARE ADVANTAGE [facility] (WNR) Mar 11, 2021 [id number] GILL DELUNA PATIENT [facility] (WNR) MEDICARE ADVANTAGE [facility] (WNR) Sep 11, 2021 [id number] GILL DELUNA PATIENT Selected Encounter This section includes the information on record at [place] for the Encounter. Date/Time Encounter Type Encounter Description Reason Provider Source Jun 18, 2024 02:15 PM OFF/OP EST JANUARY X REQ PHY/QHP PRIMARY CARE/MEDICINE ICD-10-CM L02.31 Cutaneous abscess of buttock ANGELINE FERNANDEZ [place] Encounter Template Text not used by [place] Assessments - Encounter Diagnoses This section includes the primary and secondary diagnoses documented for the Encounter. Date/Time Primary/Secondary Diagnosis Diagnosis Name Provider Source Jun 18, 2024 03:15 PM PRIMARY Cutaneous abscess of buttock ANGELINE FERNANDEZ [place] Plan of Treatment: Future Appointments (+ 6 [...] Appointment Type Appointme nt Facility Name Jun 20, 2024 10:45 AM [facility] Jul 03, 2024 09:30 AM AM[facility]ULATORY [facility]ICINE [place] [facility] [place] [facility] Jul 16, 2024 09:40 AM AMBULATORY - MEDICINE [place] [facility] [place] [place] [facility] Jul 31, 2024 02:00 PM AMBULATORY - MEDICINE [place] [facility] [place] [facility] Aug 16, 2024 11:00 AM AMBULATORY - MEDICINE [facility] [place] [facility] Aug 22, 2024 01:00 PM AMBULATORY - MEDICINE [facility] [place] [facility] Aug 26, 2024 03:30 PM AMBULATORY - MEDICINE [facility] [place] [facility] Oct 17, 2024 01:00 PM AMBULATORY - MEDICINE [facility] [place] [facility] Oct 24, 2024 10:30 AM AMBULATORY - PSYCHIATRY [facility] [place] [facility] Oct 24, 2024 10:30 AM AMBULATORY [place] [facility] Oct 29, 2024 08:30 AM [facility] Dec 12, 2024 10:30 AM AMBULATORY - MEDICINE [facility] [place] [facility] Active, Pending, and Scheduled Orders This [...] Test Type Test Details Facility Name May 09, 2024 10:35 AM Consult Order COMMUNITY CARE-CARDIOLOGY [facility] Jul 16, 2024 09:12 PM Consult Order COMMUNITY CARE-UROLOGY [facility] Vital Signs: All taken on the encounter date This section contains inpatient and outpatient Vital Signs collected on the date of the Encounter. Date/Time Temperature Pulse Blood Pressure Respiratory Rate SP02 Pain Height Weight Body Mass Index Source Jun 18, 2024 02:34 PM 97.6 96 169/93 20 97 3 [facility] [place] Social History: Smoking Status (Most current) [...] Nadine jose Jul 06, 2021 09:30 AM [place]-TOBACCO NEVER USED [place] Tobacco Use History This section includes a history of the smoking, or tobacco-related health factors, that were collected on or before the date of the Encounter. The data comes from the [place] facility where the Encounter took place. Date/Time Smoking Status/Tobacco Use Comment F acility Apr 30, 2020 01:00 PM VA-TOBACCO FORMER USER [place] Apr 30, 2020 01:00 PM VA-TOBACCO QUIT 15 YRS OR MORE [place] January 09, 2019 02:16 PM VA-TOBACCO FORMER USER [place] January 09, 2019 02:16 PM VA-TOBACCO QUIT 15 YRS OR MORE [place] Feb 13, 2018 11:05 AM QUIT TOBACCO USE > 7 YEARS AGO [place] Feb 28, 2017 01:42 PM LIFETIME NON-TOBACCO USER quit 1976 [place] Nov 17, 2015 09:53 AM QUIT TOBACCO USE > 7 YEARS AGO [place] February 08, 2002 03:04 PM QUIT TOBACCO USE > 7 YEARS AGO Patient states he smoked from age [age] and quit. [place] Aug 10, 2001 03:42 PM NON-TOBACCO USER Stopped tobacco 35 years ago [place] Encounter Notes: All associated encounter notes This section contains the clinical notes associated to the Encounter. Date/Time Encounter Note(s) Provider Source Jun 18, 2024 02:36 PM PRIMARY CARE NOTE: LOCAL TITLE: WALK-IN NOTE PRIMARY CARE (T) STANDARD TITLE: PRIMARY CARE NOTE DATE OF NOTE: JUN 18, 2024@14:36 ENTRY DATE: JUN 18, 2024@14:36:28 AUTHOR: ANGELINE FERNANDEZ COSIGNER: URGENCY: STATUS: COMPLETED WALK-IN NOTE PRIMARY CARE (T) Has ADDENDA Data: 79year old MALE reports to Primary Care clinic for Walk-In visit. [place]'s PCP is MARIIA BROUSSARD Today Vet walks in to clinic with complaint of pain in coccyx area. Last recorded Vital Signs are: Temperature:97.6 F [36.4 C] (06/18/2024 14:34) Pulse:96 (06/18/2024 14:34) Blood Pressure:169/93 (06/18/2024 14:34) Respiration:20 (06/18/2024 14:34) Pain:3 (06/18/2024 14:34) Vet reports current allergies are: Remote Allergy Data No Remote Allergy/ADR Data available for this patient Current Medications from Active Med list include: Active Outpatient Medications (including Supplies): Active Outpatient Medications Status = 1) ACCU-CHEK GUIDE (GLUCOSE) TEST STRIP USE [...] ACTIVE NEEDED FOR LOW BLOOD SUGAR 6) FLUOROURACIL 5% CREAM APPLY A THIN LAYER TOPICALLY ACTIVE TWICE DAILY APPLY TO AFFECTED AREAS FOR 2-4 WEEKS OR UNTIL SUPERFICIAL EROSION OCCURS 7) GLUCOSE SENSOR DEXCOM G7 USE 1 SENSOR DIRECTED ACTIVE EVERY 10 DAYS 8) INSULIN,ASPART(EQV-NOVLG)100UN/ML FLXPEN INJECT ACTIVE DIRECTED SUBCUTANEOUSLY THREE [...] ACTIVE DAY TO TEST BLOOD SUGAR 11) LORAZEPAM 0.5MG TAB TAKE ONE TABLET BY MOUTH ONCE ACTIVE DAILY FOR ANXIETY 12) NEEDLE,PEN 31G,5MM USE 1 NEEDLE SUBCUTANEOUSLY FOUR ACTIVE TIMES A DAY FOR USE WITH PEN DEVICE 13) SEMAGLUTIDE 2MG/0.75ML INJ PEN 3ML INJECT 2MG ACTIVE SUBCUTANEOUSLY ONCE A WEEK FOR TYPE 2 DIABETES MELLITUS 14) SILDENAFIL CITRATE 100MG TAB TAKE ONE TABLET BY MOUTH ACTIVE ONCE DAILY NEEDED TAKE 1 HOUR PRIOR TO SEXUAL ACTIVITY 15) VALSARTAN 320MG TAB TAKE ONE TABLET BY MOUTH ONCE ACTIVE DAILY Active Non-VA Medications Status = 1) Non-VA FLUTICASONE NASAL SOLN,NASAL INTO EACH ACTIVE NOSTRIL 16 Total Medications Action: [place] states he noticed 3 days ago a possible cyst to the buttocks. Reports area painful with sitting. Has not noticed any drainage. Denies history of cysts in area. Left inner buttocks with large area of induration and erythema with oozing center. Area draining large amount of purulent drainage with foul odor. Area assessed by Kristyn Mendez COMMUNICATIONS WRITER. I&D completed Instructed on wound care. to return later in the week for check of the area. Instructed to start antibiotic as soon as possible. verbalized understanding. /essence FERNANDEZ RN PRIMARY CARE RN Signed: 06/18/2024 15:15 Receipt Acknowledged By: 06/18/2024 15:21 /simone/ ROSA CLEMENTS CERTIFIED NURSE PRACTITIONER 06/18/2024 ADDENDUM STATUS: COMPLETED Simple I&D of abscess right inner buttock performed. No significant purulent drainage obtained. Site dressed and post-procedure care provided to patient, including monitor for s/s infection. Start Keflex TID x 10 days. f/u 2-3 days for wound check. /ROSA Massey CERTIFIED NURSE PRACTITIONER Signed: 06/18/2024 15:22 ANGELINE FERNANDEZFIELD
--- OUTSIDE RECORDS SUMMARY | 2024-08-21 23:31 | XMS_ITS ---
Author Name [facility] [place] Address [address] [place] [address] Care Team Providers Care Combat Engineer Name Role Phone MARIIA BROUSSARD Primary Care [...] Patient's Relationship to Policy [employer] S[employer]IPTS ([id number]) PRESCRIPT ION [facility] Mar 11, 2018 [id number] MADAI DELUNA OTHER RELATIONSHIP [facility] PREFERRED PROVIDER ORGANIZAT ION (PPO) Jun 11, 2011 [id number] [phone] MADAI DELUNA PATIENT [facility]MANA [facility] (WNR) MEDICARE ADVANTAGE [facility] (WNR) Sep 11, 2022 [id number] [phone] [place] PATIENT MEDICARE (WNR) MEDICARE (M) PART A January 10, 2012 PART A [id number] [phone] MIKIE GILL PATIENT MEDICARE (WNR) MEDICARE (M) PART B January 10, 2012 PART B [id number] GILL DELUNA PATIENT MEDICARE (WNR) MEDICARE (M) PART A January 10, 2012 PART A [id number] GILL DELUNA PATIENT UNICARE PREFERRED PROVIDER ORGANIZAT ION (PPO) [place] RE STATE INDE* * Mar 11, 2015 [id number] MADAI DELUNA [facility] (WNR) MEDICARE ADVANTAGE [facility] (WNR) Mar 11, 2021 [id number] GILL DELUNA PATIENT [facility] (WNR) MEDICARE ADVANTAGE [facility] (WNR) Sep 11, 2021 [id number] GILL DELUNA PATIENT Selected Encounter This section includes the information on record at [place] for the Encounter. Date/Time Encounter Type Encounter Description Reason Pro vider Source Jun 18, 2024 02:25 PM Outpatient Encounter PRIMARY CARE/MEDICINE IHE Encounter Template Text not used by [place] Plan of Treatment: Future Appointments (+ 6 months) and Future Tests (+/- 45 days) The Plan of Treatment section includes future care activities for the patient from all [place] treatmentfacilities. This section includes future appointments and future orders which are active, pending or scheduled. Future Appointments This section includes appointments that were scheduled to occur 6 months from the date of the Encounter, up to a maximum of 20 appointments. The data comes from all [place] treatment facilities. Appointment Date/Time Appointment Type Appointme nt Facility Name Jun 20, 2024 10:45 AM [facility] Jul 03, 2024 09:30 AM AMBULATORY [place]ICINE [place] [facility] Jul 16, 2024 09:40 AM AMBULATORY - MEDICINE [place] [facility] [place] [facility] Jul 31, 2024 02:00 PM AMBULATORY - MEDICINE [place] [facility] [place] [facility] Aug 16, 2024 11:00 AM AMBULATORY - MEDICINE [place] [facility] Aug 22, 2024 01:00 PM AMBULATORY - MEDICINE [place] [facility] [place] [facility] Aug 26, 2024 03:30 PM AMBULATORY - MEDICINE [place] [facility] Oct 17, 2024 01:00 PM AMBULATORY - MEDICINE [place] [facility] [facility] Oct 24, 2024 10:30 AM AMBULATORY - PSYCHIATRY [place] [facility] [place] [facility] Oct 24, 2024 10:30 AM AMBULATORY [place] [facility] Oct 29, 2024 08:30 AM [facility] Dec 12, 2024 10:30 AM [facility] [place] [facility] Active, Pending, and Scheduled Orders This section includes a listing of several types of active, pending, and scheduled orders, including clinic medications orders, diagnostic test orders, procedure orders and consult orders; where the start date of the order is 45 days before the date of the Encounter or 45 days after the date of theEncounter. The data comes from all [place] treatment facilities. Test Date/Time Test Type Test Details Facility Name May 09, 2024 10:35 AM Consult Order COMMUNITY CARE-CARDIOLOGY [facility] Installation [facility] Jul 16, 2024 09:12 PM Consult Order [facility] Installation Manager'[facility] Social History: Smoking Status (Most current) and Tobacco Use (All prior to encounter date) This section includes the most current, and the historical, smoking and tobacco- related health factors from the [place] facility where the Encounter took place. Current Smoking Status This section includes the most current smoking, or tobacco-related health factor, from the [place] facility where the Encounter took place. Date/Time Current Smoking Status Comment Nadine jose May 03, 2024 10:00 AM VA-TOBACCO NEVER USED [facility] Tobacco Use History This section includes a history of the smoking, or tobacco-related health factors, that were collected on or before the date of the Encounter. The data comes from the [place] facility where the Encounter took place. Date/Time Smoking Status/Tobacco Use Comment F acility Dec 12, 2022 03:10 PM VA-TOBACCO NEVER USED [facility] Encounter Notes: All associated encounter notes This section contains the clinical notes associated to the Encounter. Date/Time Encounter Note(s) Provider Source Jun 18, 2024 02:25 PM PRIMARY CARE NOTE: LOCAL TITLE: WALK-IN NOTE PRIMARY CARE (T) STANDARD TITLE: PRIMARY CARE NOTE DATE OF NOTE: JUN 18, 2024@14:25 ENTRY DATE: JUN 18, 2024@14:25:44 AUTHOR: DARIUS MARTINEZ EXP COSIGNER: URGENCY: STATUS: COMPLETED <====Click to Start Advanced Medical Support presents to the Primary Care clinic with the following request: [ ]Medication Renewal/Refill [ ]Consultation with Team RN [ X ]Symptoms [ ]Other [facility] states they are: [ X ]Waiting [ ]Not Waiting Yes Walk in visit scheduled with PACT Nurse [ X ] At this encounter the [facility]'s demographics were verified. [ X ] At this encounter the 's Insurance information was verified. [ X ] At this encounter the below scheduled visits for [facility] were discussed and appointment reminder card was offered. 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 /es/ DARIUS MARTINEZ AMSA Signed: 06/18/2024 14:26 Receipt Acknowledged By: 06/19/2024 16:05 /es/ ZAID ODONNELLRN REGISTERED NURSE 06/18/2024 14:28 /es/ ANGELINE FERNANDEZ RN PRIMARY CARE RN DARIUS MARTINEZFIELD
--- OUTSIDE RECORDS SUMMARY | 2024-08-21 23:31 | XMS_ITS ---
Author Name [facility] [place] Address [address] [place] [address] Care Team Providers Care Manager Document Name Role Phone MARIIA BROUSSARD Primary Care [...] Patient's Relationship to Policy [employer] S[employer]IP[employer] ([id number]) PRESCRIPT ION [facility] Mar 11, 2018 [id number] MADAI DELUNA OTHER RELATIONSHIP [facility] PREFERRED PROVIDER ORGANIZAT ION (PPO) Jun 11, 2011 [id number] MADAI DELUNA PATIENT HUMANA [facility] (WNR) MEDICARE ADVANTAGE [facility] (WNR) Sep 11, 2022 [id number] GILL DELUNA PATIENT MEDICARE (WNR) MEDICARE (M) PART A January 10, 2012 PART A [id number] GILL DELUNA PATIENT MEDICARE (WNR) MEDICARE (M) PART B January 10, 2012 PART B [id number] GILL DELUNA PATIENT MEDICARE (WNR) MEDICARE (M) PART A January 10, 2012 PART A [id number] [phone] GILL DELUNA PATIENT UNICARE PREFERRED PROVIDER ORGANIZAT ION (PPO) [place] RE STATE THUYE* * Mar 11, 2015 [id number] MADAI DELUNA [facility] (WNR) MEDICARE ADVANTAGE [facility] (WNR) Mar 11, 2021 [id number] GILL DELUNA PATIENT [facility] (WNR) MEDICARE ADVANTAGE [facility] (WNR) Sep 11, 2021 [id number] [phone] MIKIE GILL PATIENT Selected Encounter This section includes the information on record at [place] for the Encounter. Date/Time Encounter Type Encounter Description Reason Pro vider Source May 20, 2024 10:11 AM Outpatient Encounter TELEPHONE PRIMARY CARE IHE Encounter Template Text not used by [place] Plan of Treatment: Future Appointments (+ 6 [...] 10:45 AM [facility] Jul 03, 2024 09:30 AM AMBULATORY - MEDICINE [place] [facility] Jul 16, 2024 09:40 AM AMBULATORY - MEDICINE [place] [facility] Jul 31, 2024 02:00 PM AMBULATORY - MEDICINE [place] [facility] Aug 16, 2024 11:00 AM AMBULATORY - MEDICINE [place] [facility] Aug 22, 2024 01:00 PM AMBULATORY - MEDICINE [place] [facility] Aug 26, 2024 03:30 PM AMBULATORY - MEDICINE [place] [facility] Oct 17, 2024 01:00 PM AMBULATORY - MEDICINE [place] [facility] Oct 24, 2024 10:30 AM AMBULATORY - PSYCHIATRY [place] [facility] Oct 24, 2024 10:30 AM AMBULATORY - [place] [facility] Oct 29, 2024 08:30 AM AMBULATORY [...] 1 [facility] PSYCHIATRY OUTPT IFC CT Cons Sleeping Room Cleaner's Choice [place] May 09, 2024 10:35 AM Consult Order COMMUNITY CARE-CARDIOLOGY Cons Sleeping Room Clean[facility] [place] Lab Results: +/- 30 days of the [...] Range Comment May 07, 2024 08:37 AM [place] PSA Specimen Type: SERUM No comment entered. Ordering Provider: MARIIA ABBOTT Report Released Date/Time: May 04, 2024 12:14 AM Reporting [facility] [address] [address] Performing Lab: [address] [address] PSA 2.56 ng/mL 0.00-4.00 May 03, 2024 01:53 PM [place] HEMOGLOBIN A1C PANEL Specimen Type: BLOOD [...] Oct 30, 2023 05:07 PM Reporting Lab: [address] [address] Performing Lab: [address] [address] HEMOGLOBIN A1C 8.1 H 4.0-5.6 May 03, 2024 01:53 PM [place] LIPID PANEL FASTING Specimen Type: SERUM No comment entered. Ordering Provider: MAIRIA ABBOTT Report Released Date/Time: Oct 30, 2023 05:07 PM Reporting Lab: [address] [address] Performing Lab: [address] [address] CHOLESTEROL 108 mg/dL TRIGLYCERIDE 79 mg/dL 0-150 LDL calculated 47 mg/dL 0-129 CHOL/HDL 2.4 HDL CHOLESTEROL 45 mg/dL 40-60 May 03, 2024 01:53 PM [place] BASIC METABOLIC PANEL (fasting) Specime n Type: SERUM No comment entered. Ordering Provider: MARIIA ABBOTT Report Released Date/Time: Oct 30, 2023 05:07 PM Reporting Lab: [address] [address] Performing Lab: [address] [address] UREA NITROGEN 46 mg/dL H 7-25 GLUCOSE 294 mg/dL H 65-100 SODIUM 137 mmol/L 135-145 POTASSIUM 4.4 mmol/L 3.5-5.0 CHLORIDE 105 mmol/L 100-110 CO2 21 meq/L 20-30 CREATININE, Serum 1.05 mg/dL 0.50-1.40 eGFR(CKD-EPI 2020) 73 mL/min >60 May 03, 2024 01:53 PM [place] LIVER FUNCTION Specimen Type: SERUM No comment entered. Ordering Provider: MARIIA ABBOTT Report Released Date/Time: Oct 30, 2023 05:07 PM Reporting Lab: [facility] [address] [address] Performing Lab: [facility] [address] [address] PROTEIN,TOTAL 7.3 g/dL 6.0-8.3 ALBUMIN 3.8 g/dL 3.5-5.0 ALKALINE PHOSPHATASE 73 U/L 40-150 AST 21 U/L 5-34 ALT 22 U/L BILIRUBIN, TOTAL 0.5 mg/dL 0.2-1.2 May 03, 2024 01:53 PM [place] VITAMIN D (25-OH) Specimen Type: SERUM No comment entered. Ordering Provider: MARIIA ABBOTT Report Released Date/Time: Oct 30, 2023 05:07 PM Reporting Lab: [address] [address] Performing Lab: [facility] [address] [address] VITAMIN D (25-OH) 24 ng/mL 20-50 May 03, 2024 01:53 PM [place] TSH Specimen Type: SERUM No comment entered. Ordering Provider: MARIIA ABBOTT Report Released Date/Time: Oct 30, 2023 05:07 PM Reporting Lab: [address] [address] Performing Lab: [facility] [address] TSH 1.73 u[IU]/mL 0.35-5.00 May 03, 2024 01:53 PM [place] CALCIUM Specimen Type: SERUM No comment entered. Ordering Provider: MARIIA ABBOTT Report Released Date/Time: Oct 30, 2023 05:07 PM Reporting Lab: [address] [address] Performing Lab: [facility] [address] [address] CALCIUM 9.7 mg/dL 8.5-10.2 May 03, 2024 01:53 PM [place] MICROALBUMIN CREATININE RATIO PANEL Spe cimen Type: URINE No comment entered. Ordering Provider: MARIIA ABBOTT Report Released Date/Time: Oct 30, 2023 05:07 PM Reporting Lab: [address] [address] Performing Lab: [address] [address] MICROALBUMIN/C REATININE RATIO 128.4 mg/g H 0-29.9 MICROALBUMIN,Q UANTITATIVE 5.4 mg/dL RR UNAVAIL CREATININE URINE 42.05 mg/dL May 03, 2024 01:53 PM [place] CBC AND DIFF (AUTO) Specimen Type: BLOOD No comment entered. Ordering Provider: MARIIA ABBOTT Report Released Date/Time: Oct 30, 2023 05:07 PM Reporting Lab: [address] [address] Performing Lab: [address] [address] WBC 6.25 10*3/uL 4.50-11.00 RBC 5.12 10*6/uL [...] 2024 10:00 AM VA-TOBACCO NEVER USED [facility] Tobacco Use History This section includes a history of the smoking, or tobacco-related health factors, that were collected on or before the date of the Encounter. The data comes from the [place] facility where the Encounter took place. Date/Time Smoking Status/Tobacco Use Comment [place] Dec 12, 2022 03:10 PM VA-TOBACCO NEVER USED [facility] Encounter Notes: All associated encounter notes This section contains the clinical notes associated to the Encounter. Date/Time Encounter Note(s) Provider Source May 20, 2024 10:11 AM CARE COORDINATION HOME TELEHEALTH NOTE: LOCAL TITLE: HT NOTE STANDARD TITLE: CARE COORDINATION HOME TELEHEALTH NOTE DATE OF NOTE: MAY 20, 2024@10:11 ENTRY DATE: MAY 20, 2024@10:11:30 AUTHOR: MONTSERRAT MIRANDA EXP COSIGNER: URGENCY: STATUS: COMPLETED [place] has not utilized HT equipment for the past six days. Called [place] (identified by full name and date of ) states he has been busy and has not been around, will resume use to HT equipment today and transmit date, has vacation planned for next week. States he is doing well, feeling well at this time. /simone/ Montserrat Miranda, BSN, RN RPM-Home Telehealth Car Wash Attendant Automatic Signed: 05/20/2024 10:15 [place] MIRANDA [facility]L [facility]
--- OUTSIDE RECORDS SUMMARY | 2024-08-21 23:32 | XMS_ITS | Encounter Summary ---
Author Name [facility] [place] Address [address] [place] [address] Care Team Providers Care Keel Press Operator Name Role Phone AMRIIA BROUSSARD Primary Care Provide r Unavailable Insurance [...] Patient's Relationship to Policy [employer] S[employer]IPTS ([id number]) PRESCRIPT ION [facility] [address] [address] Mar 11, 2018 [id number] MADAI DELUNA OTHER RELATIONSHIP [facility] PREFERRED PROVIDER ORGANIZAT ION (PPO) Jun 11, 2011 [id number] [phone] MADAI DELUNA PATIENT [employer]MANA [facility] (WNR) MEDICARE ADVANTAGE [facility] (WNR) Sep 11, 2022 [id number] [phone] [place] PATIENT MEDICARE (WNR) MEDICARE (M) PART A January 10, 2012 PART A [id number] [place] PATIENT MEDICARE (WNR) MEDICARE (M) PART B January 10, 2012 PART B [id number] [phone] GILL DELUNA PATIENT MEDICARE (WNR) MEDICARE (M) PART A January 10, 2012 PART A [id number] GILL DELUNA PATIENT UNICARE PREFERRED PROVIDER ORGANIZAT ION (PPO) [place] RE STATE INDE* * Mar 11, 2015 [id number] MADAI DELUNA SPOUSE [facility] (WNR) MEDICARE ADVANTAGE [facility] (WNR) Mar 11, 2021 [id number] GILL DELUNA PATIENT [facility] (WNR) MEDICARE ADVANTAGE [facility] (WNR) Sep 11, 2021 [id number] [phone] GILL DELUNA PATIENT Selected Encounter This section includes the information on record at [place] for the Encounter. Date/Time Encounter Type Encounter Description Reason Provider Source Jun 28, 2024 08:33 AM Outpatient Encounter HT NON-VIDEO MONITORING ICD-10-CM I11.9 Hypertensive heart disease without heart failure ALCIRA LAYNE [place] Encounter Template Text not used by [place] Assessments - Encounter Diagnoses This section includes the primary and secondary diagnoses documented for the Encounter. Date/Time Primary/Secondary Diagnosis Diagnosis Name Provider Source Jun 28, 2024 08:44 AM PRIMARY Hypertensive heart disease without heart failure ALCIRA LAYNE [facility] [place] [facility] Plan of Treatment: Future Appointments (+ 6 months) and Future Tests (+/- 45 days) The Plan of Treatment section includes future care activities for the patient from all [place] treatmentfacilities. This section includes future appointments and future orders which are active, pending or scheduled. Future Appointments This section includes appointments that were scheduled to occur 6 months from the date of the Encounter, up to a maximum of 20 appointments. The data comes from all [place] treatment facilities. Appointment Date/Time Appointment Type Appointme nt Facility Name Jul 03, 2024 09:30 AM AMBULATORY - MEDICINE [place] [facility] [place] [facility] Jul 16, 2024 09:40 AM AMBULATORY - MEDICINE [place] [facility] [facility] Jul 31, 2024 02:00 PM AMBULATORY - MEDICINE [place] [facility] [place] [facility] Aug 16, 2024 11:00 AM AMBULATORY - MEDICINE [place] [facility] [facility] Aug 22, 2024 01:00 PM AMBULATORY - MEDICINE [place] [facility] [place] [facility] Aug 26, 2024 03:30 PM AMBULATORY - MEDICINE [place] [facility] [place] [facility] Oct 17, 2024 01:00 PM AMBULATORY - MEDICINE [place] [facility] [place] [facility] Oct 24, 2024 10:30 AM AMBULATORY - PSYCHIATRY [place] [facility] [place] [facility] Oct 24, 2024 10:30 AM AMBULATORY [place] [facility] Oct 29, 2024 08:30 AM AMBULATORY - MEDICINE [facility] Dec 12, 2024 10:30 AM AMBULATORY - MEDICINE [place] [facility] Active, Pending, and Scheduled Orders This section includes a listing of several types of active, pending, and scheduled orders, including clinic medications orders, diagnostic test orders, procedure orders and consult orders; where the start date of the order is 45 days before the date of the Encounter or 45 days after the date of theEncounter. The data comes from all [place] treatment facilities. Test Date/Time Test Type Test Details Facility Name Jul 16, 2024 09:12 PM Consult Order [facility] Cons Banquet Attendant's Choice [place] Lab Results: +/- 30 days of the encounter This section includes the Chemistry and Hematology Lab Results on record with [place] for the patient. Radiology Reports and Pathology Reports are provided separately, in subsequent sections. Lab Results This section contains the Chemistry/Hematology Results that were resulted 30 days before or 30 daysafter the date of the Encounter. Date/Time Source Result Type Result - Unit Interpretation Reference Range Comment Jul 25, 2024 11:45 AM [place] HEMOGLOBIN A1C PANEL Specimen Type: BLOOD Comment: Values obtained from A1C measurements can vary. For atypical A1C assays, a reported value of 7.0 could actually be between 6.72 and 7.28 if measured by a reference method. A reported value of 9.0 could actually be between 8.73 and 9.27. Ref: http://www.ngs p.org/CAPdata. asp Ordering Provider: MARIIA ABBOTT Report Released Date/Time: Jul 16, 2024 02:11 PM Reporting Lab: [place] [facility] [address] [address] Performing Lab: [facility]USEMATTE[facility] [address] [facility] [address] HEMOGLOBIN A1C 8.5 H 4.0-5.6 Jul 25, 2024 11:45 AM [place] TSH Specimen Type: SERUM No comment entered. Ordering Provider: MARIIA ABBOTT Report Released Date/Time: Jul 16, 2024 02:11 PM Reporting Lab: [facility] [address] [address] Performing Lab: [facility] [address] [address] TSH 2.04 u[IU]/mL 0.35-5.00 Jul 25, 2024 11:45 AM [place] BASIC METABOLIC PANEL (fasting) Specime n Type: SERUM No comment entered. Ordering Provider: MARIIA ABBOTT Report Released Date/Time: Jul 16, 2024 02:11 PM Reporting Lab: [facility] [address] Performing Lab: [facility] [address] UREA NITROGEN 39 mg/dL H 7-25 GLUCOSE 239 mg/dL H 65-100 SODIUM 140 mmol/L 135-145 POTASSIUM 4.4 mmol/L 3.5-5.0 CHLORIDE 104 mmol/L 100-110 CO2 25 meq/L 20-30 CREATININE, Serum 1.03 mg/dL 0.50-1.40 eGFR(CKD-EPI 2020) 75 mL/min >60 Jul 25, 2024 11:45 AM [place] LIPID PANEL FASTING Specimen Type: SERUM No comment entered. Ordering Provider: MARIIA ABBOTT Report Released Date/Time: Jul 16, 2024 02:11 PM Reporting Lab: [facility] [address] [address] Performing Lab: [facility] [address] [address] CHOLESTEROL 118 mg/dL TRIGLYCERIDE 77 mg/dL 0-150 LDL calculated 58 mg/dL 0-129 CHOL/HDL 2.6 HDL CHOLESTEROL 45 mg/dL 40-60 Jul 25, 2024 11:45 AM [place] LIVER FUNCTION Specimen Type: SERUM No comment entered. Ordering Provider: MARIIA ABBOTT Report Released Date/Time: Jul 16, 2024 02:11 PM Reporting Lab: [address] [address] Performing Lab: [address] [address] PROTEIN,TOTAL 6.8 g/dL 6.0-8.3 ALBUMIN 3.6 g/dL 3.5-5.0 ALKALINE PHOSPHATASE 71 U/L 40-150 AST 17 U/L 5-34 ALT 18 U/L BILIRUBIN, TOTAL 0.5 mg/dL 0.2-1.2 Jul 25, 2024 11:45 AM [place] CBC AND DIFF (AUTO) Specimen Type: BLOOD No comment entered. Ordering Provider: MARIIA ABBOTT Report Released Date/Time: Jul 16, 2024 02:11 PM Reporting Lab: [address] [address] Performing Lab: [address] [address] WBC 6.11 10*3/uL 4.50-11.00 RBC 4.86 10*6/uL 4.23-5.66 HGB 14.8 g/dL 12.8-17 HCT 42.8 39.2-50.4 MCV 88.1 fL 82-99 MCHC 34.6 g/dL 30.8-35.1 PLT 140 10*3/uL 140-360 RDW-CV 12.6 12.0-16.0 MONO, ABS 0.51 10*3/uL 0.30-1.10 MCH 30.5 pg 26.2-32.6 NEUT % 70.1 43.7-75.8 LYMPH % 19.0 14.0-42.3 MONO % 8.3 5.1-13.7 EOS % 1.6 0.4-6.8 BASO % 0.7 0.1-2.0 NEUT, ABS 4.28 10*3/uL 2.20-7.60 LYMPH, ABS 1.16 10*3/uL 1.00-3.20 EOS, ABS 0.10 10*3/uL 0.03-0.44 BASO, ABS 0.04 10*3/uL 0.01-0.13 IMMATURE GRAN % 0.3 0.0-0.7 IMMATURE GRAN, ABS 0.02 10*3/uL 0.00-0.06 NRBC % 0.0 0.0-0.0 NRBC, ABS 0.00 10*3/uL 0.00-0.00 Social History: Smoking Status (Most current) and Tobacco Use (All prior to encounter date) This section includes the most current, and the historical, smoking and tobacco- related health factors from the [place] facility where the Encounter took place. Current Smoking Status This section includes the most current smoking, or tobacco-related health factor, from the [place] facility where the Encounter took place. Date/Time Current Smoking Status Comment Nadine jose May 03, 2024 10:00 AM VA-TOBACCO NEVER USED [facility] Tobacco Use History This section includes a history of the smoking, or tobacco-related health factors, that were collected on or before the date of the Encounter. The data comes from the [place] facility where the Encounter took place. Date/Time Smoking Status/Tobacco Use Comment F del Dec 12, 2022 03:10 PM VA-TOBACCO NEVER USED [facility] Encounter Notes: All associated encounter notes This section contains the clinical notes associated to the Encounter. Date/Time Encounter Note(s) Provider Source Jun 28, 2024 08:40 AM CARE COORDINATION HOME TELEHEALTH SUMMARIZATION NOTE: LOCAL TITLE: MONTHLY MONITOR NOTE STANDARD TITLE: CARE COORDINATION HOME TELEHEALTH SUMMARIZATION DATE OF NOTE: JUN 28, 2024@08:40 ENTRY DATE: JUN 28, 2024@08:40:35 AUTHOR: ALCIRA LAYNE COSIGNER: URGENCY: STATUS: COMPLETED The is enrolled in the Home Telehealth (HT) program and continues to be monitored via HT technology. The data sent by the [facility] is reviewed and analyzed by the HT staff, who provide ongoing case management and health education while communicating and collaborating with the health care team as appropriate. This note covers a total of 30 minutes for the month monitored. Month monitored: June 2024 Dx: Hypertension /es/ KAVITHA Albert, RN RPM-Home Telehealth Vice President Integrated Signed: 06/28/2024 08:44 ALCIRA LAYNE [place] [facility]
--- OUTSIDE RECORDS SUMMARY | 2024-08-21 23:32 | XMS_ITS | Encounter Summary ---
Author Name [facility] [place] Address [address] [place] [address] Care Team Providers Care Evaporator Helper Name Role Phone MARIIA BROUSSARD Primary [...] Patient's Relationship to Policy [employer] ([id number]) PRESCRIPT ION [facility] Mar 11, 2018 [id number] MADAI DELUNA OTHER RELATIONSHIP [facility] PREFERRED PROVIDER ORGANIZAT ION (PPO) Jun 11, 2011 [id number] [id number] MADAI DELUNA PATIENT [employer]NA [facility] (WNR) MEDICARE ADVANTAGE [facility] (WNR) Sep 11, 2022 [id number] [phone] GILL DELUNA PATIENT MEDICARE (WNR) MEDICARE (M) PART A January 10, 2012 PART A [id number] [phone] [place] PATIENT MEDICARE (WNR) MEDICARE (M) PART B January 10, 2012 PART B [id number] GILL DELUNA PATIENT MEDICARE (WNR) MEDICARE (M) PART A January 10, 2012 PART A [id number] GILL DELUNA PATIENT [employer] PREFERRED PROVIDER ORGANIZAT ION (PPO) [place] RE STATE INDE* * Mar 11, 2015 [id number] MADAI DELUNA [facility] (WNR) MEDICARE ADVANTAGE [facility] (WNR) Mar 11, 2021 [id number] GILL DELUNA PATIENT [facility] (WNR) MEDICARE ADVANTAGE [facility] (WNR) Sep 11, 2021 [id number] [phone] GILL DELUNA PATIENT Selected Encounter This section includes the information on record at [place] for the Encounter. Date/Time Encounter Type Encounter Description Reason Provider Source Jun 20, 2024 10:45 AM OFF/OP EST JANUARY X REQ PHY/QHP PRIMARY CARE/MEDICINE ICD-10-CM L02.31 Cutaneous abscess of buttock ANGELINE FERNANDEZ [facility] Encounter Template Text not used by [place] Assessments - Encounter Diagnoses This section includes the primary and secondary diagnoses documented for the Encounter. Date/Time Primary/Secondary Diagnosis Diagnosis Name Provider Source Jun 20, 2024 02:13 PM PRIMARY Cutaneous abscess of buttock ANGELINE FERNANDEZ [facility] Plan of Treatment: Future Appointments (+ 6 [...] - MEDICINE [place] [facility] Jul 16, 2024 09:40 AM AMBULATORY - MEDICINE [place] [facility] Jul 31, 2024 02:00 PM AMBULATORY - MEDICINE [place] [facility] Aug 16, 2024 11:00 AM AMBULATORY - MEDICINE [place] [facility] Aug 22, 2024 01:00 PM AMBULATORY - MEDICINE [place] [facility] Aug 26, 2024 03:30 PM AMBULATORY - MEDICINE [place] [place] [facility] Oct 17, 2024 01:00 PM AMBULATORY - MEDICINE [place] [place] [facility] Oct 24, 2024 10:30 AM AMBULATORY - PSYCHIATRY [place] [facility] [place] [facility] Oct 24, 2024 10:30 AM AMBULATORY [place] [facility] Oct 29, 2024 08:30 AM [facility] Dec 12, 2024 10:30 AM AMBULATORY - MEDICINE [place] [facility] Active, Pending, and Scheduled Orders This section includes a listing of several types of active, pending, and scheduled orders, including clinic medications orders, diagnostic test orders, procedure orders and consult orders; where the start date of the order is 45 days before the date of the Encounter or 45 days after the date of theEncounter. The data comes from all [place] treatment facilities. Test Date/Time Test Type Test Details Facility Name May 09, 2024 10:35 AM Consult Order [facility]-CARDIOLOGY [facility] Supervisor's [facility] Jul 16, 2024 09:12 PM Consult Order [facility]-UROLOGY [facility] Vital Signs: All taken on the encounter date This section contains inpatient and outpatient Vital Signs collected on the date of the Encounter. Date/Time Temperature Pulse Blood Pressure Respiratory Rate SP02 Pain Height Weight Body Mass Index Source Jun 20, 2024 11:22 AM 98.5 81 146/69 16 96 3 [facility] Social History: Smoking Status (Most current) [...] Nadine rothy Jul 06, 2021 09:30 AM [place]-TOBACCO NEVER USED [facility] Tobacco Use History This section includes a history of the smoking, or tobacco-related health factors, that were collected on or before the date of the Encounter. The data comes from the [place] facility where the Encounter took place. Date/Time Smoking Status/Tobacco Use Comment F acility Apr 30, 2020 01:00 PM VA-TOBACCO FORMER USER [facility] Apr 30, 2020 01:00 PM VA-TOBACCO QUIT 15 YRS OR MORE [facility] January 09, 2019 02:16 PM VA-TOBACCO FORMER USER [facility] January 09, 2019 02:16 PM VA-TOBACCO QUIT 15 YRS OR MORE [facility] Feb 13, 2018 11:05 AM QUIT TOBACCO USE > 7 YEARS AGO [facility] Feb 28, 2017 01:42 PM LIFETIME NON-TOBACCO USER quit 1975 [facility] Nov 17, 2015 09:53 AM QUIT TOBACCO USE > 7 YEARS AGO [facility] February 08, 2002 03:04 PM QUIT TOBACCO USE > 7 YEARS AGO Patient states he smoked from age [age] and quit. [facility] Aug 10, 2001 03:42 PM NON-TOBACCO USER Stopped tobacco 35 years ago [facility] Encounter Notes: All associated encounter notes This section contains the clinical notes associated to the Encounter. Date/Time Encounter Note(s) Provider Source Jun 20, 2024 11:23 AM PRIMARY CARE NOTE: LOCAL TITLE: WALK-IN NOTE PRIMARY CARE (T) STANDARD TITLE: PRIMARY CARE NOTE DATE OF NOTE: JUN 20, 2024@11:23 ENTRY DATE: JUN 20, 2024@11:23:32 AUTHOR: ANGELINE FERNANDEZ COSIGNER: URGENCY: STATUS: COMPLETED Data: 79year old MALE reports to Primary Care clinic for Walk-In visit. [place]'s PCP is MARIIA BROUSSARD Today Vet walks in to clinic with complaint of recheck of buttock wound Last recorded Vital Signs are: Temperature:98.5 F [36.9 C] (06/20/2024 11:22) Pulse:81 (06/20/2024 11:22) Blood Pressure:146/69 (06/20/2024 11:22) Respiration:16 (06/20/2024 11:22) Pain:3 (06/20/2024 11:22) Vet reports current allergies are: Remote Allergy [...] MOUTH TWICE DAILY FOR URINARY RETENTION 3) CEPHALEXIN 500MG CAP TAKE ONE CAPSULE BY MOUTH THREE ACTIVE TIMES A DAY FOR INFECTION 4) CHLORTHALIDONE 25MG TAB TAKE ONE TABLET BY MOUTH ONCE ACTIVE (S) DAILY TO REMOVE FLUID/CONTROL BLOOD PRESSURE 5) CLONIDINE HCL 0.1MG TAB TAKE ONE TABLET BY MOUTH ACTIVE EVERY 12 HOURS TO CONTROL BLOOD PRESSURE 6) DEXTROSE 24GM/31GM SQUEEZE TUBE 1 TUBE BY MOUTH ACTIVE NEEDED FOR LOW BLOOD SUGAR 7) GLUCOSE SENSOR DEXCOM G7 USE 1 [...] EACH ACTIVE NOSTRIL 16 Total Medications Action: returned to sick call after I&D 06/18/24 for left inner buttock abscess. reports pain significantly improved. Now only 3/10 Left inner buttock wound with sero/sang drainage on old dressing, small amount. slight tenderness erythema much improved. continues with induration around the wound. Advised to continue with wound care. Advised to continue with antibiotics until completed. Return next week for another recheck, sooner if needed. [place] in agreement Supplies given to . Reminders Info Only: [facility] Video Connect Capable DUE NOW Advance Directive Screen MH AD Apr 26 Homelessness/Food Insecurity Screen Dec 12 Depression Screening Sep 02 Falls & Incontinence Screen DUE NOW Mental Health Treatment Plan DUE NOW Influenza Immunization DUE NOW Medication Reconciliation DUE NOW COVID-19 Immunization DUE NOW Eye Care At-Risk Screen DUE NOW (Optional) Whole Health Documentation DUE NOW /simone/ ANGELINE FERNANDEZ RN PRIMARY CARE RN Signed: 06/20/2024 14:13 ANGELINE FERNANDEZ [facility]
--- OUTSIDE RECORDS SUMMARY | 2024-08-21 23:32 | XMS_ITS | Encounter Summary ---
Author Name [facility] [place] Organization [place] Address [address] [place] [address] Care Team Providers Care Diet Supervisor Name Role Phone MARIIA BROUSSARD Primary [...] Patient's Relationship to Policy [employer] SCRIP[employer] ([id number]) PRESCRIPT ION [facility] Mar 11, 2018 [id number] [phone] MADAI DELUNA OTHER RELATIONSHIP [facility] PREFERRED PROVIDER ORGANIZAT ION (PPO) Jun 11, 2011 [id number] MADAI DELUNA PATIENT HUMANA [facility] (WNR) MEDICARE ADVANTAGE [facility] (WNR) Sep 11, 2022 [id number] [phone] GILL DELUNA PATIENT MEDICARE (WNR) MEDICARE (M) PART A January 10, 2012 PART A [id number] 41A GILL DELUNA PATIENT MEDICARE (WNR) MEDICARE (M) PART B January 10, 2012 PART B [id number] 41A GILL DELUNA PATIENT MEDICARE (WNR) MEDICARE (M) PART A January 10, 2012 PART A [id number] [phone] GILL DELUNA PATIENT UNICARE PREFERRED PROVIDER ORGANIZAT ION (PPO) UNICA RE STATE INDE* * Mar 11, 2015 [id number] MADAI DELUNA SPOUSE [facility] (WNR) MEDICARE ADVANTAGE [facility] (WNR) Mar 11, 2021 [id number] GILL DELUNA PATIENT [facility]LL[facility] (WNR) MEDICARE ADVANTAGE [facility] (WNR) Sep 11, 2021 [id number] GILL DELUNA PATIENT Selected Encounter This section includes the information on record at [place] for the Encounter. Date/Time Encounter Type Encounter Description Reason Provider Source Jun 26, 2024 02:25 PM HC PRO PHONE CALL 5-10 MIN TELEPHONE/MEDICIN E ICD-10-CM I11.9 Hypertensive heart disease without heart failure ALCIRA LAYNE Belle Encounter Template Text not used by [place] Assessments - Encounter Diagnoses This section includes the primary and secondary diagnoses documented for the Encounter. Date/Time Primary/Secondary Diagnosis Diagnosis Name Provider Source Jun 26, 2024 02:25 PM PRIMARY Hypertensive heart disease without heart failure [facility]NE [facility] [place] [facility] Plan of Treatment: Future Appointments (+ 6 [...] 03, 2024 09:30 AM AMBULATORY - MEDICINE [place] C [place] [facility] Jul 16, 2024 09:40 AM AMBULATORY - MEDICINE [place] C [place] [facility] Jul 31, 2024 02:00 PM AMBULATORY - MEDICINE [place] C [place] [facility] Aug 16, 2024 11:00 AM AMBULATORY - MEDICINE [place] C [place] [facility] Aug 22, 2024 01:00 PM AMBULATORY - MEDICINE [place] [facility] Aug 26, 2024 03:30 PM AMBULATORY - MEDICINE [place] [facility] Oct 17, 2024 01:00 PM AMBULATORY - MEDICINE [place] [facility] Oct 24, 2024 10:30 AM AMBULATORY - PSYCHIATRY [place] [facility] [facility] Oct 24, 2024 10:30 AM AMBULATORY - [place]RY [place] [facility] Oct 29, 2024 08:30 AM [facility] Dec 12, 2024 10:30 AM AMBULATORY - MEDICINE [place] [facility] Active, Pending, and Scheduled Orders This section includes a listing of several types of active, pending, and scheduled orders, including clinic medications orders, diagnostic test orders, procedure orders and consult orders; where the start date of the order is 45 days before the date of the Encounter or 45 days after the date of theEncounter. The data comes from all [place] treatment facilities. Test Date/Time Test Type Test Details Facility Name Jul 16, 2024 09:12 PM Consult Order [facility]-UROLOGY Cons Metallography Teacher's Choice [place] Lab Results: +/- 30 days of the [...] Range Comment Jul 25, 2024 11:45 AM [place] TSH Specimen Type: SERUM No comment entered. Ordering Provider: MARIIA ABBOTT Report Released Date/Time: Jul 16, 2024 02:11 PM Reporting Lab: [facility] [address] [facility] [address] Performing Lab: [facility] [address] [address] TSH 2.04 u[IU]/mL 0.35-5.00 Jul 25, 2024 11:45 AM [place] HEMOGLOBIN A1C PANEL Specimen Type: BLOOD Comment: [...] Jul 16, 2024 02:11 PM Reporting Lab: [facility] [address] [address] Performing Lab: [address] [address] HEMOGLOBIN A1C 8.5 H 4.0-5.6 Jul 25, 2024 11:45 AM [place] LIPID PANEL FASTING Specimen Type: SERUM No comment entered. Ordering Provider: MARIIA ABBOTT Report Released Date/Time: Jul 16, 2024 02:11 PM Reporting Lab: [facility] [address] [address] Performing Lab: [facility] [address] [address] CHOLESTEROL 118 mg/dL TRIGLYCERIDE 77 mg/dL 0-150 LDL calculated 58 mg/dL 0-129 CHOL/HDL 2.6 HDL CHOLESTEROL 45 mg/dL 40-60 Jul 25, 2024 11:45 AM [place] BASIC METABOLIC PANEL (fasting) Specime n Type: SERUM No comment entered. Ordering Provider: MARIIA ABBOTT Report Released Date/Time: Jul 16, 2024 02:11 PM Reporting Lab[facility] [address] Performing Lab: [facility] [address] [address] UREA NITROGEN 39 mg/dL H 7-25 GLUCOSE 239 mg/dL H 65-100 SODIUM 140 mmol/L 135-145 POTASSIUM 4.4 mmol/L 3.5-5.0 CHLORIDE 104 mmol/L 100-110 CO2 25 meq/L 20-30 CREATININE, Serum 1.03 mg/dL 0.50-1.40 eGFR(CKD-EPI 2020) 75 mL/min >60 Jul 25, 2024 11:45 AM [place] LIVER FUNCTION Specimen Type: SERUM No comment entered. Ordering Provider: MARIIA ABBOTT Report Released Date/Time: Jul 16, 2024 02:11 PM Reporting Lab: [address] [address] Performing Lab: [address] [address] PROTEIN,TOTAL 6.8 g/dL 6.0-8.3 ALBUMIN 3.6 g/dL 3.5-5.0 ALKALINE PHOSPHATASE 71 U/L 40-150 AST 17 U/L 5-34 ALT 18 U/L BILIRUBIN, TOTAL 0.5 mg/dL 0.2-1.2 Jul 25, 2024 11:45 AM [place] CBC AND DIFF (AUTO) Specimen Type: BLOOD No comment entered. Ordering Provider: MARIIA ABBOTT Report Released Date/Time: Jul 16, 2024 02:11 PM Reporting Lab: [address] [address] Performing Lab: [address] [address] WBC 6.11 10*3/uL 4.50-11.00 RBC 4.86 10*6/uL [...] 03, 2024 10:00 AM [place]-TOBACCO NEVER USED [facility] Tobacco Use History This section includes a history of the smoking, or tobacco-related health factors, that were collected on or before the date of the Encounter. The data comes from the [place] facility where the Encounter took place. Date/Time Smoking Status/Tobacco Use Comment Edis mathis Dec 12, 2022 03:10 PM [place]-TOBACCO NEVER USED [facility] Encounter Notes: All associated encounter notes This section contains the clinical notes associated to the Encounter. Date/Time Encounter Note(s) Provider Source Jun 26, 2024 02:25 PM CARE COORDINATION HOME TELEHEALTH FOLLOW-UP NOTE: LOCAL TITLE: HT INTERVENTION NOTE STANDARD TITLE: CARE COORDINATION HOME TELEHEALTH FOLLOW-UP NOTE DATE OF NOTE: JUN 26, 2024@14:25 ENTRY DATE: JUN 26, 2024@14:25:16 AUTHOR: ALCIRA LAYNE EXP COSIGNER: URGENCY: STATUS: COMPLETED is actively enrolled in the Home Telehealth program. Review of data shows the following out of range responses: GILL DELUNA (-[id number]) Vital Sign for: 05/28/2024 - 06/26/2024 (All times are EST; All weights are lbs) Primary DMP: VHA-HTN Comorbid(s): Summary Weight Sys BP Barnett BP HR Pain High 173.8 161 98 100 Low 166.4 95 54 44 Average 171.2 139 76 83 Date Time Wt Time Sys Barnett Time HR Time Pain 06/26/2024 - 14:05 95/54 14:05 89 06/26/2024 - 00:04 141/77 00:04 100 06/25/2024 20:00 172.6 23:59 161/71 23:59 84 06/21/2024 16:50 166.4 16:49 159/78 16:49 87 06/20/2024 18:39 171.2 18:38 152/87 18:38 95 06/17/2024 23:44 170.0 23:44 150/84 23:44 100 06/16/2024 23:34 173.6 23:33 135/72 23:33 94 06/16/2024 23:28 173.4 23:28 135/98 23:28 92 06/16/2024 00:05 169.8 00:04 160/80 00:04 67 06/14/2024 - 19:09 132/77 19:09 79 06/14/2024 15:41 169.6 15:40 121/65 15:40 98 06/14/2024 09:55 169.0 09:54 144/74 09:54 81 06/12/2024 21:09 173.0 21:08 142/90 21:08 90 06/11/2024 19:06 173.8 19:05 143/74 19:05 78 06/10/2024 18:47 172.0 18:46 142/86 18:46 47 06/09/2024 22:26 171.6 22:25 153/76 22:25 90 06/08/2024 18:41 168.8 18:41 127/70 18:41 85 06/07/2024 22:59 172.4 22:58 143/69 22:58 44 06/07/2024 11:25 169.0 11:24 146/76 11:24 63 06/06/2024 22:36 171.2 22:35 108/75 22:35 98 06/06/2024 17:03 173.8 17:02 138/69 17:02 83 06/04/2024 21:49 171.6 21:48 140/69 21:48 88 Source: [employer]; [employer] Assessment: Hypertension last evening, hypotension today Tachycardia last evening, improved to normal limits today. Spoke with Warren ( identified by full name and date of ) to review data and assess for any symptoms, changes, questions or concerns. reports he is doing well and feeling well. Warren denies headaches, dizziness, lightheadedness, syncope or near syncope, confusion, blurred/changed vision, flushing of face, chest pain, shortness of breath, palpitations, racing of heart, nausea, vomiting, unusual fatigue or weakness. reports he takes chlorthalidone 25mg by mouth daily in the morning and valsartan 320mg by mouth at night, clonidine 0.1mg by mouth twice a day. He denies skipped or missed doses. Warren reports discrepancy in blood pressure readings between HT device and another personal automatic blood pressure machine he has had for a couple of years. He reports HT blood pressure machine has showed low battery for the past couple of days, replaced batteries 2-3 times and seems to be better, however, Warren is still concerned about accuracy of device. Warren reports he drinks [employer] milk several times a day, reports he drinks some water and will increase water intake. Intervention(s)/Plan: Ordered new blood pressure machine to be sent to . will contact this software writer with any questions or concerns once he receives it. Reviewed/Educated Warren of the following: Signs/symptoms of hypertension, risks, treatment, when and where to seek help (call provider vs. ). Normal blood pressure: less than 120/80 Target goal for blood pressure: less than 130/80 Normal heart rate: 60-100 How to take an accurate blood pressure. Assess your blood pressure approximately two hours after taking your medication and as needed. Rest for at least 5-10 minutes prior to assessing your blood pressure and in between assessments. Instructed to take all medications as ordered. Contact provider if you believe you are experiencing any side effects or have questions or concerns about your medication. Encouraged to hydrate well with water throughout the day (at least 64 ounces daily). Educated on signs/symptoms of dehyration and treatment. Complete HT health check daily and as needed. Transmit all data to for review/monitoring. verbalized understanding of education and denied questions or concerns. TYPE OF ENCOUNTER: Telephone Length of call: 5-10 minutes WHOLE HEALTH COACHING SKILLS Coaching or Motivational Interviewing skills used. /simone/ KAVITHA Albert, RN [facility]-Home Telehealth [employer] Superintendent Signed: 06/26/2024 14:35 Receipt Acknowledged By: 07/04/2024 09:15 /simone/ MARIIA BROUSSARD MD PHYSICIAN [facility]IRA LAYNE [facility]
--- OUTSIDE RECORDS SUMMARY | 2024-08-21 23:32 | XMS_ITS | Encounter Summary ---
Author Name Department [place] Organization [place] Address [address] [place] [address] Care Team Providers Care Shutdown Coordinator Name Role Phone MARIIA BROUSSARD Primary [...] Patient's Relationship to Policy [employer] ([id number]) PRESCRIPT ION [facility] Mar 11, 2018 [id number] MADAI DELUNA OTHER RELATIONSHIP [facility] PREFERRED PROVIDER ORGANIZAT ION (PPO) Jun 11, 2011 [id number] MADAI DELUNA PATIENT HUMANA [facility] (WNR) MEDICARE ADVANTAGE [facility] (WNR) Sep 11, 2022 [id number] GILL DELUNA PATIENT MEDICARE (WNR) MEDICARE (M) PART A January 10, 2012 PART A [id number] MIKIE GILL PATIENT MEDICARE (WNR) MEDICARE (M) PART B January 10, 2012 PART B [id number] 41A GILL DELUNA PATIENT MEDICARE (WNR) MEDICARE (M) PART A January 10, 2012 PART A [id number] GLIL DELUNA PATIENT UNICARE PREFERRED PROVIDER ORGANIZAT ION (PPO) [place] RE STATE INDE* * Mar 11, 2015 [id number] MADAI DELUNA [facility] (WNR) MEDICARE ADVANTAGE [facility] (WNR) Mar 11, 2021 [id number] GILL DELUNA PATIENT WELLCARE [facility] (WNR) MEDICARE ADVANTAGE [facility] (WNR) Sep 11, 2021 [id number] GILL DELUNA PATIENT Selected Encounter This section includes the information on record at [place] for the Encounter. Date/Time Encounter Type Encounter Description Reason Pro vider Source Jun 20, 2024 10:54 AM Outpatient Encounter PRIMARY CARE/MEDICINE IHE Encounter Template Text not used by [place] Plan of Treatment: Future Appointments (+ 6 months) and Future Tests (+/- 45 days) The Plan of Treatment section includes future care activities for the patient from all [place] treatmentfacilities. This section includes future appointments and future orders which are active, pending or scheduled. Future Appointments This section includes appointments that were scheduled to occur 6 months from the date of the Encounter, up to a maximum of 20 appointments. The data comes from all [place] treatment facilities. Appointment Date/Time Appointment Type Appointme nt Facility Name Jul 03, 2024 09:30 AM AMBULATORY - MEDICINE [facility] [place] [facility] Jul 16, 2024 09:40 AM AMBULATORY - MEDICINE [place] C [place] [facility] Jul 31, 2024 02:00 PM AMBULATORY - MEDICINE [place] C [place] [facility] Aug 16, 2024 11:00 AM AMBULATORY - MEDICINE [place] C [place] [facility] Aug 22, 2024 01:00 PM AMBULATORY - MEDICINE [place] C [place] [facility] Aug 26, 2024 03:30 PM AMBULATORY - MEDICINE [place] C [place] [facility] Oct 17, 2024 01:00 PM AMBULATORY - MEDICINE [place] C [place] [facility] Oct 24, 2024 10:30 AM AMBULATORY - PSYCHIATRY [place] [facility] Oct 24, 2024 10:30 AM AMBULATORY [place] [facility] Oct 29, 2024 08:30 AM AMBULATORY - MEDICINE [facility] Dec 12, 2024 10:30 AM AMBULATORY - MEDICINE [place] C NTRL [facility] Active, Pending, and Scheduled Orders This section includes a listing of several types of active, pending, and scheduled orders, including clinic medications orders, diagnostic test orders, procedure orders and consult orders; where the start date of the order is 45 days before the date of the Encounter or 45 days after the date of theEncounter. The data comes from all [place] treatment facilities. Test Date/Time Test Type Test Details Facility Name May 09, 2024 10:35 AM Consult Order [facility]-CARDIOLOGY [facility] Associate Chief Nurse'[facility] Jul 16, 2024 09:12 PM Consult Order COMMUNITY [facility]-UROLOGY [facility] Associate Chief Nurse'[facility] Social History: Smoking Status (Most current) and Tobacco Use (All prior to encounter date) This section includes the most current, and the historical, smoking and tobacco- related health factors from the [place] facility where the Encounter took place. Current Smoking Status This section includes the most current smoking, or tobacco-related health factor, from the [place] facility where the Encounter took place. Date/Time Current Smoking Status Comment Nadine jose May 03, 2024 10:00 AM [place]-TOBACCO NEVER USED [facility] Tobacco Use History This section includes a history of the smoking, or tobacco-related health factors, that were collected on or before the date of the Encounter. The data comes from the [place] facility where the Encounter took place. Date/Time Smoking Status/Tobacco Use Comment F acility Dec 12, 2022 03:10 PM [place]-TOBACCO NEVER USED [facility] Encounter Notes: All associated encounter notes This section contains the clinical notes associated to the Encounter. Date/Time Encounter Note(s) Provider Source Jun 20, 2024 10:54 AM PRIMARY CARE NOTE: LOCAL TITLE: WALK-IN NOTE PRIMARY CARE (T) STANDARD TITLE: PRIMARY CARE NOTE DATE OF NOTE: JUN 20, 2024@10:54 ENTRY DATE: JUN 20, 2024@10:54:16 AUTHOR: BAYLEE GRIFFITHS EXP COSIGNER: URGENCY: STATUS: COMPLETED <====Click to Start Advanced Medical Support Reynolds presents to the Primary Care clinic with the following request: [ ]Medication Renewal/Refill [ ]Consultation with Team RN [ X ]Symptoms [ ]Other The states they are: [ X ]Waiting [ ]Not Waiting Yes Walk in visit scheduled with PACT Nurse [ X ] At this encounter the Reynolds's demographics were verified. [ X ] At this encounter the Reynolds's Insurance information was verified. [ X ] At this encounter the below scheduled visits for the Reynolds were discussed and appointment reminder card was offered. 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
--- OUTSIDE RECORDS SUMMARY | 2024-08-21 23:32 | XMS_ITS | Encounter Summary ---
Author Name [facility] [place] Address [address] [place] [address] Care Team Providers Care Home Management Supervisor Name Role Phone MARIIA BROUSSARD Primary [...] Patient's Relationship to Policy [employer]IP[employer] ([id number]) PRESCRIPT ION [facility] [address] [address] Mar 11, 2018 [id number] [phone] MADAI DELUNA OTHER RELATIONSHIP [facility] PREFERRED PROVIDER ORGANIZAT ION (PPO) Jun 11, 2011 [id number] MADAI DELUNA PATIENT [facility] (WNR) MEDICARE ADVANTAGE [facility] (WNR) Sep 11, 2022 [id number] GILL DELUNA PATIENT MEDICARE (WNR) MEDICARE (M) PART A January 10, 2012 PART A [id number] GILL DELUNA PATIENT MEDICARE (WNR) MEDICARE (M) PART B January 10, 2012 PART B [id number] GILL DELUNA PATIENT MEDICARE (WNR) MEDICARE (M) PART A January 10, 2012 PART A [id number] GILL DELUNA PATIENT UN[employer]ARE PREFERRED PROVIDER ORGANIZAT ION (PPO) CRISTHIAN RE STATE THUYE* * Mar 11, 2015 [id number] MADAI DELUNA SPOUSE [facility] (WNR) MEDICARE ADVANTAGE [facility] (WNR) Mar 11, 2021 [id number] GILL DELUNA PATIENT [facility] (WNR) MEDICARE ADVANTAGE [facility] (WNR) Sep 11, 2021 [id number] GILL DELUNA PATIENT Selected Encounter This section includes the information on record at [place] for the Encounter. Date/Time Encounter Type Encounter Description Reason Pro vider Source Jun 25, 2024 11:13 AM Outpatient Encounter TELEPHONE PRIMARY CARE IHE [...] - MEDICINE [place] [facility] Jul 16, 2024 09:40 AM AMBULATORY - MEDICINE [place] [facility] Jul 31, 2024 02:00 PM AMBULATORY - MEDICINE [place] [facility] Aug 16, 2024 11:00 AM AMBULATORY - MEDICINE [place] [facility] Aug 22, 2024 01:00 PM AMBULATORY - MEDICINE [place] [facility] Aug 26, 2024 03:30 PM AMBULATORY - MEDICINE [place] [facility] Oct 17, 2024 01:00 PM AMBULATORY - MEDICINE [place] [facility] Oct 24, 2024 10:30 AM AMBULATORY - PSYCHIATRY [place] [facility] Oct 24, 2024 10:30 AM AMBULATORY - [place]RY [place] [facility] Oct 29, 2024 08:30 AM [facility] Dec 12, 2024 10:30 AM [facility] Active, Pending, and Scheduled Orders [...] Jul 16, 2024 09:12 PM Consult Order [facility] Cons [place] Table Assembler's Choice [place] Lab Results: +/- 30 days of the [...] Range Comment Jul 25, 2024 11:45 AM [place] HEMOGLOBIN A1C PANEL Specimen Type: BLOOD Comment: [...] Jul 16, 2024 02:11 PM Reporting Lab: [facility] [address] [address] Performing Lab: [address] [address] HEMOGLOBIN A1C 8.5 H 4.0-5.6 Jul 25, 2024 11:45 AM [place] TSH Specimen Type: SERUM No comment entered. Ordering Provider: MARIIA ABBOTT Report Released Date/Time: Jul 16, 2024 02:11 PM Reporting Lab[facility] [address] [address] Performing Lab: [place] [facility] [address] TSH 2.04 u[IU]/mL 0.35-5.00 Jul 25, 2024 11:45 AM [place] LIPID PANEL FASTING Specimen Type: SERUM No comment entered. Ordering Provider: MARIIA ABBOTT Report Released Date/Time: Jul 16, 2024 02:11 PM Reporting Lab: [facility] [address] [address] Performing Lab: [facility] [address] [address] CHOLESTEROL 118 mg/dL TRIGLYCERIDE 77 mg/dL 0-150 LDL calculated 58 mg/dL 0-129 CHOL/HDL 2.6 HDL CHOLESTEROL 45 mg/dL 40-60 Jul 25, 2024 11:45 AM [place] LIVER FUNCTION Specimen Type: SERUM No comment entered. Ordering Provider: MARIIA ABBOTT Report Released Date/Time: Jul 16, 2024 02:11 PM Reporting Lab: [facility] [address] [address] Performing Lab: [facility] [address] PROTEIN,TOTAL 6.8 g/dL 6.0-8.3 ALBUMIN 3.6 g/dL 3.5-5.0 ALKALINE PHOSPHATASE 71 U/L 40-150 AST 17 U/L 5-34 ALT 18 U/L BILIRUBIN, TOTAL 0.5 mg/dL 0.2-1.2 Jul 25, 2024 11:45 AM [place] BASIC METABOLIC PANEL (fasting) Specime n Type: SERUM No comment entered. Ordering Provider: MARIIA ABBOTT Report Released Date/Time: Jul 16, 2024 02:11 PM Reporting Lab: [facility] [address] [address] Performing Lab: [place] CNTR[place] [address] [address] UREA NITROGEN 39 mg/dL H 7-25 GLUCOSE 239 mg/dL H 65-100 SODIUM 140 mmol/L 135-145 POTASSIUM 4.4 mmol/L 3.5-5.0 CHLORIDE 104 mmol/L 100-110 CO2 25 meq/L 20-30 CREATININE, Serum 1.03 mg/dL 0.50-1.40 eGFR(CKD-EPI 2020) 75 mL/min >60 Jul 25, 2024 11:45 AM [place] CBC AND DIFF (AUTO) Specimen Type: BLOOD No comment entered. Ordering Provider: MARIIA ABBOTT Report Released Date/Time: Jul 16, 2024 02:11 PM Reporting Lab: [address] [address] Performing Lab: [address] [address] WBC 6.11 10*3/uL 4.50-11.00 RBC 4.86 10*6/uL [...] 03, 2024 10:00 AM VA-TOBACCO NEVER USED [facility] Tobacco Use History This section includes a history of the smoking, or tobacco-related health factors, that were collected on or before the date of the Encounter. The data comes from the [place] facility where the Encounter took place. Date/Time Smoking Status/Tobacco Use Comment F acility Dec 12, 2022 03:10 PM VA-TOBACCO NEVER USED [facility] Encounter Notes: All associated encounter notes This section contains the clinical notes associated to the Encounter. Date/Time Encounter Note(s) Provider Source Jun 25, 2024 11:16 AM ADDENDUM: LOCAL TITLE: Addendum STANDARD TITLE: ADDENDUM DATE OF NOTE: JUN 25, 2024@11:16:57 ENTRY DATE: JUN 25, 2024@11:16:57 AUTHOR: ALCIRA LAYNE EXP COSIGNER: URGENCY: STATUS: COMPLETED GILL DELUNA (-[id number]) Vital Sign for: 05/27/2024 - 06/25/2024 (All times are EST; All weights are lbs) Primary DMP: VHA-HTN Comorbid(s): Summary Weight Sys BP Barnett BP HR Pain High 173.8 160 98 100 Low 166.4 108 65 44 Average 171.1 141 77 82 Date Time Wt Time Sys Barnett Time HR Time Pain 06/21/2024 16:50 166.4 16:49 159/78 16:49 87 [...] 21:49 171.6 21:48 140/69 21:48 88 Source: [employer]; [employer] Pro System /simone/ KAVITHA Albert, RN RPM-Home Telehealth Straightedge Man Signed: 06/25/2024 11:17 Receipt Acknowledged By: 06/28/2024 11:32 /simone/ PADILLA GAVIRIA NP NURSE PRACTITIONER for MARIIA BROUSSARD --- Original Document --- 06/25/24 HT NOTE: has not utilized HT equipment in the last four days. Called Tichnor (identified by full name and date of ). Tichnor reports he is doing well Life is treating me well . States he did not realize it has been four days on non-use of HT equipment, states he will resume use today and transmit data for review. Tichnor states left inner buttock abscess is healing, continues to take antibiotic as prescribed, knows when to contact/follow up with provided. Reminded Tichnor of upcoming appointment: 07/03/2024 09:30 CWM/SO/PHARM/PACT 2 /KAVITHA Cormier, RN RPM-Home Telehealth Straightedge Man Signed: 06/25/2024 11:16 06/26/2024 ADDENDUM STATUS: COMPLETED Tichnor resumed use of HT equipment today. /KAVITHA Cormier, RN RPM-Home Telehealth Straightedge Man Signed: 06/26/2024 09:23 ALCIRA LAYNE [place] [facility] Jun 25, 2024 11:13 AM CARE COORDINATION HOME TELEHEALTH NOTE: LOCAL TITLE: HT NOTE STANDARD TITLE: CARE COORDINATION HOME TELEHEALTH NOTE DATE OF NOTE: JUN 25, 2024@11:13 ENTRY DATE: JUN 25, 2024@11:13:57 AUTHOR: ALCIRA LAYNE EXP COSIGNER: URGENCY: STATUS: COMPLETED HT NOTE Has ADDENDA has not utilized HT equipment in the last four days. Called (identified by full name and date of ). Tichnor reports he is doing well Life is treating me well . States he did not realize it has been four days on non-use of HT equipment, states he will resume use today and transmit data for review. states left inner buttock abscess is healing, continues to take antibiotic as prescribed, knows when to contact/follow up with provided. Reminded of upcoming appointment: 07/03/2024 09:30 CWM/SO/PHARM/PACT 2 /es/ KAVITHA Albert, RN [facility]-Home Telehealth Straightedge Man Signed: 06/25/2024 11:16 06/25/2024 ADDENDUM STATUS: COMPLETED GILL DELUNA (-[id number]) Vital Sign for: 05/27/2024 - 06/25/2024 (All times are EST; All weights are lbs) Primary DMP: VHA-HTN Comorbid(s): Summary Weight Sys BP Barnett BP HR Pain High 173.8 160 98 100 Low 166.4 108 65 44 Average 171.1 141 77 82 Date Time Wt Time Sys Barnett Time HR Time Pain 06/21/2024 16:50 166.4 16:49 159/78 16:49 87 [...] 21:49 171.6 21:48 140/69 21:48 88 Source: [employer]; MD[employer] Pro System /simone/ KAVITHA Albert, RN [facility]-Home Telehealth Straightedge Man Signed: 06/25/2024 11:17 Receipt Acknowledged By: * AWAITING SIGNATURE * MARIIA BROUSSARD 06/26/2024 ADDENDUM STATUS: COMPLETED resumed use of HT equipment today. /simone/ LLOYD AlbertN, RN RPM-Home Telehealth Straightedge Man Signed: 06/26/2024 09:23 ALCIRA LAYNE [facility]
--- OUTSIDE RECORDS SUMMARY | 2024-08-21 23:33 | XMS_ITS | Encounter Summary ---
Author Name [facility] [place] Address [address] [place] [address] Care Team Providers Care System Admin Name Role Phone MARIIA BROUSSARD Primary Care [...] Patient's Relationship to Policy [employer] EXPRESS SCRIPTS ([id number]) PRESCRIPT ION [facility] Mar 11, 2018 [id number] MADAI DELUNA OTHER RELATIONSHIP [facility] PREFERRED PROVIDER ORGANIZAT ION (PPO) Jun 11, 2011 [id number] MADAI DELUNA PATIENT [facility] [facility] (WNR) MEDICARE ADVANTAGE [facility] (WNR) Sep 11, 2022 [id number] [phone] GILL DELUNA PATIENT MEDICARE (WNR) MEDICARE (M) PART A January 10, 2012 PART A [id number] GILL DELUNA PATIENT MEDICARE (WNR) MEDICARE (M) PART B January 10, 2012 PART B [id number] [phone] GILL DELUNA PATIENT MEDICARE (WNR) MEDICARE (M) PART A January 10, 2012 PART A [id number] GILL DELUNA PATIENT UNICARE PREFERRED PROVIDER ORGANIZAT ION (PPO) [place] RE STATE INDE* * Mar 11, 2015 [id number] MADAI DELUNA SPOUSE [facility] (WNR) MEDICARE ADVANTAGE [facility] (WNR) Mar 11, 2021 [id number] GILL DELUNA PATIENT [facility] (WNR) MEDICARE ADVANTAGE [facility] (WNR) Sep 11, 2021 [id number] GILL DELUNA PATIENT Selected Encounter This section includes the information on record at [place] for the Encounter. Date/Time Encounter Type Encounter Description Reason Pro vider Source Jul 12, 2024 11:46 AM Outpatient Encounter ADMIN PAT ACTIVTIES (MASNONCT) [...] Appointment Type Appointme nt Facility Name Jul 16, 2024 09:40 AM AMBULATORY - MEDICINE [place] [facility] Jul 31, 2024 02:00 PM AMBULATORY - MEDICINE [place] [facility] Aug 16, 2024 11:00 AM AM[place]ULATORY - [place]ICINE [place] [facility] Aug 22, 2024 01:00 PM AMBULATORY - MEDICINE [place] [facility] Aug 26, 2024 03:30 PM AMBULATORY - MEDICINE [place] [facility] Oct 17, 2024 01:00 PM AMBULATORY - MEDICINE [place] [facility] Oct 24, 2024 10:30 AM AMBULATORY - PSYCHIATRY [place] [facility] Oct 24, 2024 10:30 AM AMBULATORY [place] [facility] Oct 29, 2024 08:30 AM [facility] Dec 12, 2024 10:30 AM AMBULATORY - MEDICINE [facility] NTRL [facility] Active, Pending, and Scheduled Orders [...] Jul 16, 2024 09:12 PM Consult Order [facility]-UROLOGY Cons Systems Coordinator's Choice [place] Lab Results: +/- 30 days of the encounter This section includes the Chemistry and Hematology Lab Results on record with [place] for the patient. Radiology Reports and Pathology Reports are provided separately, in subsequent sections. Lab Results This section contains the Chemistry/Hematology Results that were resulted 30 days before or 30 daysafter the date of the Encounter. Date/Time Source Result Type Result - Unit Interpretation Reference Range Comment Jul 25, 2024 11:45 AM [place] HEMOGLOBIN A1C PANEL Specimen Type: BLOOD Comment: [...] Jul 16, 2024 02:11 PM Reporting Lab: [facility] [address] [address] Performing Lab: [address] [address] HEMOGLOBIN A1C 8.5 H 4.0-5.6 Jul 25, 2024 11:45 AM [place] TSH Specimen Type: SERUM No comment entered. Ordering Provider: MARIIA ABBOTT Report Released Date/Time: Jul 16, 2024 02:11 PM Reporting Lab: [facility] [address] [address] Performing Lab: [place] [facility] [address] [address] TSH 2.04 u[IU]/mL 0.35-5.00 Jul 25, 2024 11:45 AM [place] LIPID PANEL FASTING Specimen Type: SERUM No comment entered. Ordering Provider: MARIIA ABBOTT Report Released Date/Time: Jul 16, 2024 02:11 PM Reporting Lab: [facility] [address] [address] Performing Lab: [facility] [address] [address] CHOLESTEROL 118 mg/dL TRIGLYCERIDE 77 mg/dL 0-150 LDL calculated 58 mg/dL 0-129 CHOL/HDL 2.6 HDL CHOLESTEROL 45 mg/dL 40-60 Jul 25, 2024 11:45 AM [place] BASIC METABOLIC PANEL (fasting) Specime n Type: SERUM No comment entered. Ordering Provider: MARIIA ABBOTT Report Released Date/Time: Jul 16, 2024 02:11 PM Reporting Lab: [facility] [address] [address] Performing Lab: [facility] [address] [address] UREA NITROGEN 39 mg/dL H 7-25 GLUCOSE 239 mg/dL H 65-100 SODIUM 140 mmol/L 135-145 POTASSIUM 4.4 mmol/L 3.5-5.0 CHLORIDE 104 mmol/L 100-110 CO2 25 meq/L 20-30 CREATININE, Serum 1.03 mg/dL 0.50-1.40 eGFR(CKD-EPI 2020) 75 mL/min >60 Jul 25, 2024 11:45 AM [place] LIVER FUNCTION Specimen Type: SERUM No comment entered. Ordering Provider: MARIIA ABBOTT Report Released Date/Time: Jul 16, 2024 02:11 PM Reporting Lab: [facility] [address] [address] Performing Lab: [address] [address] PROTEIN,TOTAL 6.8 g/dL 6.0-8.3 ALBUMIN 3.6 g/dL 3.5-5.0 ALKALINE PHOSPHATASE 71 U/L 40-150 AST 17 U/L 5-34 ALT 18 U/L BILIRUBIN, TOTAL 0.5 mg/dL 0.2-1.2 Jul 25, 2024 11:45 AM [place] CBC AND DIFF (AUTO) Specimen Type: BLOOD No comment entered. Ordering Provider: MARIIA ABBOTT Report Released Date/Time: Jul 16, 2024 02:11 PM Reporting Lab: [address] [address] Performing Lab: [address] [address] WBC 6.11 10*3/uL 4.50-11.00 RBC 4.86 10*6/uL [...] 03, 2024 10:00 AM VA-TOBACCO NEVER USED [place] [employer] [facility] Tobacco Use History This section includes a history of the smoking, or tobacco-related health factors, that were collected on or before the date of the Encounter. The data comes from the [place] facility where the Encounter took place. Date/Time Smoking Status/Tobacco Use Comment F del Dec 12, 2022 03:10 PM VA-TOBACCO NEVER USED [place] [employer] [facility] Encounter Notes: All associated encounter notes This section contains the clinical notes associated to the Encounter. Date/Time Encounter Note(s) Provider Source Jul 12, 2024 11:46 AM ADMINISTRATIVE NOT E: LOCAL TITLE: CCC: SCHEDULING ADMINISTRATION STANDARD TITLE: ADMINISTRATIVE NOTE DATE OF NOTE: JUL 12, 2024@11:46:36 ENTRY DATE: JUL 12, 2024@11:46:37 AUTHOR: PAMELA TORRES COSIGNER: URGENCY: STATUS: COMPLETED CCC: SCHEDULING ADMINISTRATION Has ADDENDA Patient Demographics Patient Name: GILL DELUNA Patient Primary Phone: [phone] Patient Primary Address: [address] [place] [id number] Patient : 1945 Patient Age: 79 Caller/Recipient Relation to Patient: Other If Other Describe Relation to Patient: Eyesight and surgery Caller Name: Tamera Administrative Administrative Note Comments: Tamera from Eyesight [facility] surgery [phone] called to schedule a preop clearance appt, pt is scheduled for surgery 08/28/24 left eye, 09/25/24 right eye. Call pt to schedule. Thank you IMPORTANT: This note was created by [facility] Clinical Contact Center staff. Please do not alert the staff member by adding them as a signer for future communications. Alerts are not monitored by this user. /essence TORRES Signed: 07/12/2024 11:46 Receipt Acknowledged By: 07/18/2024 09:01 /simone/ ABDI ALMARAZ LPN LPN 07/17/2024 11:47 /simone/ ZAID ODONNELL RN REGISTERED NURSE 07/17/2024 ADDENDUM STATUS: COMPLETED Please see administrative note on 07/16/24. /simone/ ZAID ODONNELL RN REGISTERED NURSE Signed: 07/17/2024 11:47 PAMELA TORRES [facility]L [place] [place] [facility]
--- OUTSIDE RECORDS SUMMARY | 2024-08-21 23:33 | XMS_ITS | Encounter Summary ---
Author Name Department of [place] Organization Department [place] Address [address] [place] [address] Care Team Providers Care Munitions Factory Worker Name Role Phone MARIIA BROUSSARD Primary [...] Patient's Relationship to Policy Mancer[employer] EXPRESS SCRIPTS ([id number]) PRESCRIPT ION [facility] Mar 11, 2018 [id number] MADAI DELUNA OTHER RELATIONSHIP [facility] PREFERRED PROVIDER ORGANIZAT ION (PPO) Jun 11, 2011 [id number] MADAI DELUNA PATIENT HUMANA [facility] (WNR) MEDICARE ADVANTAGE [facility] (WNR) Sep 11, 2022 [id number] [phone] [place] PATIENT MEDICARE (WNR) MEDICARE (M) PART A January 10, 2012 PART A [id number] [phone] MIKIE GILL PATIENT MEDICARE (WNR) MEDICARE (M) PART B January 10, 2012 PART B [id number] MIKIE GILL PATIENT MEDICARE (WNR) MEDICARE (M) PART A January 10, 2012 PART A [id number] GILL DELUNA PATIENT UNICARE PREFERRED PROVIDER ORGANIZAT ION (PPO) [place] [facility]* * Mar 11, 2015 [id number] MADAI DELUNA SPOUSE [facility] (WNR) MEDICARE ADVANTAGE [facility] (WNR) Mar 11, 2021 [id number] GILL DELUNA PATIENT WELLCARE [facility] (WNR) MEDICARE ADVANTAGE [facility] (WNR) Sep 11, 2021 [id number] GILL DELUNA PATIENT Selected Encounter This section includes the information on record at [place] for the Encounter. Date/Time Encounter Type Encounter Description Reason Pro vider Source Jul 08, 2024 01:40 PM Outpatient Encounter CLINICAL PHARMACY IHE Encounter Template Text not used by [place] [...] - MEDICINE [place] [facility] [place] [facility] Jul 31, 2024 02:00 PM AMBULATORY - MEDICINE [place] [facility] [place] [facility] Aug 16, 2024 11:00 AM AMBULATORY - MEDICINE [place] [facility] [facility] Aug 22, 2024 01:00 PM AMBULATORY - MEDICINE [place] [facility] [place] [facility] Aug 26, 2024 03:30 PM AMBULATORY - MEDICINE [place] [facility] [facility] Oct 17, 2024 01:00 PM AMBULATORY - MEDICINE [place] [facility] [facility] Oct 24, 2024 10:30 AM AMBULATORY - PSYCHIATRY [place] [facility] [place] [facility] Oct 24, 2024 10:30 AM AMBULATORY - [place]IATRY [place] [facility] Oct 29, 2024 08:30 AM AMBULATORY - MEDICINE [place] Dec 12, 2024 10:30 AM AMBULATORY - MEDICINE [facility] Active, Pending, and Scheduled Orders This [...] Jul 16, 2024 09:12 PM Consult Order [facility]-UROLOGY Cons Renewal Specialist's Choice [facility] Lab Results: +/- 30 days of the [...] Range Comment Jul 25, 2024 11:45 AM ROTHSCHILD HEMOGLOBIN A1C PANEL Specimen Type: BLOOD Comment: [...] Jul 16, 2024 02:11 PM Reporting Lab: [facility] [address] [address] Performing Lab: [facility] [address] [address] HEMOGLOBIN A1C 8.5 H 4.0-5.6 Jul 25, 2024 11:45 AM ROTHSCHILD TSH Specimen Type: SERUM No comment entered. Ordering Provider: MARIIA ABBOTT Report Released Date/Time: Jul 16, 2024 02:11 PM Reporting Lab: [place] [facility] [address] [address] [address] Performing Lab: [facility] [address] [address] TSH 2.04 u[IU]/mL 0.35-5.00 Jul 25, 2024 11:45 AM ROTHSCHILD LIPID PANEL FASTING Specimen Type: SERUM No comment entered. Ordering Provider: MARIIA ABBOTT Report Released Date/Time: Jul 16, 2024 02:11 PM Reporting Lab: [facility] [address] [address] Performing [facility]: [facility] [address] [address] CHOLESTEROL 118 mg/dL TRIGLYCERIDE 77 mg/dL 0-150 LDL calculated 58 mg/dL 0-129 CHOL/HDL 2.6 HDL CHOLESTEROL 45 mg/dL 40-60 Jul 25, 2024 11:45 AM ROTHSCHILD LIVER FUNCTION Specimen Type: SERUM No comment entered. Ordering Provider: MARIIA ABBOTT Report Released Date/Time: Jul 16, 2024 02:11 PM Reporting Lab: [facility] [address] [address] Performing Lab: [facility] [address] [address] PROTEIN,TOTAL 6.8 g/dL 6.0-8.3 ALBUMIN 3.6 g/dL 3.5-5.0 ALKALINE PHOSPHATASE 71 U/L 40-150 AST 17 U/L 5-34 ALT 18 U/L BILIRUBIN, TOTAL 0.5 mg/dL 0.2-1.2 Jul 25, 2024 11:45 AM ROTHSCHILD BASIC METABOLIC PANEL (fasting) Specime n Type: SERUM No comment entered. Ordering Provider: MARIIA ABBOTT Report Released Date/Time: Jul 16, 2024 02:11 PM Reporting Lab: [facility] [address] [address] Performing [facility]: [facility] [address] [address] UREA NITROGEN 39 mg/dL H 7-25 GLUCOSE 239 mg/dL H 65-100 SODIUM 140 mmol/L 135-145 POTASSIUM 4.4 mmol/L 3.5-5.0 CHLORIDE 104 mmol/L 100-110 CO2 25 meq/L 20-30 CREATININE, Serum 1.03 mg/dL 0.50-1.40 eGFR(CKD-EPI 2020) 75 mL/min >60 Jul 25, 2024 11:45 AM ROTHSCHILD CBC AND DIFF (AUTO) Specimen Type: BLOOD No comment entered. Ordering Provider: MARIIA ABBOTT Report Released Date/Time: Jul 16, 2024 02:11 PM Reporting Lab: [facility] [address] [address] Performing Lab: [address] [address] WBC 6.11 10*3/uL 4.50-11.00 RBC 4.86 10*6/uL [...] 2024 10:00 AM VA-TOBACCO NEVER USED [facility] Tobacco Use History This section includes a history of the smoking, or tobacco-related health factors, that were collected on or before the date of the Encounter. The data comes from the [place] facility where the Encounter took place. Date/Time Smoking Status/Tobacco Use Comment F acmorgan Dec 12, 2022 03:10 PM [facility]TOBACCO [facility] Encounter Notes: All associated encounter notes This section contains the clinical notes associated to the Encounter. Date/Time Encounter Note(s) Provider Source Jul 08, 2024 01:40 PM DIABETOLOGY NOTE: LOCAL TITLE: INSULIN PUMP/CGM DOWNLOAD (T) STANDARD TITLE: DIABETOLOGY NOTE DATE OF NOTE: JUL 08, 2024@13:40 ENTRY DATE: JUL 08, 2024@13:40:26 AUTHOR: LUX ARMSTRONG EXP COSIGNER: URGENCY: STATUS: COMPLETED Please select: Personal Continuous Glucose Monitor- DEXCOM G7 Date of Documentation:Jun Please see attached scanned document in [place] [employer] direct marketing concepts. /simone/ LUX ARMSTRONG CLINICAL INSTRUCTOR LOOPING Signed: 07/08/2024 13:40 LUX ARMSTRONG ROTHSCHILD
--- OUTSIDE RECORDS SUMMARY | 2024-08-21 23:33 | XMS_ITS | Encounter Summary ---
Author Name Department of Veter[place] Organization Department of [place] Address [address] [place] [address] Care Team Providers Care Cafe Lead Name Role Phone MARIIA BROUSSARD Primary Care [...] Patient's Relationship to Policy [employer] EXPRESS SCRIPTS ([id number]) PRESCRIPT ION [facility] Mar 11, 2018 [id number] [phone] MADAI DELUNA OTHER RELATIONSHIP [facility] PREFERRED PROVIDER ORGANIZAT ION (PPO) Jun 11, 2011 [id number] [phone] MADAI DELUNA PATIENT HUMANA [facility] (WNR) MEDICARE ADVANTAGE [facility] (WNR) Sep 11, 2022 [id number] [phone] GILL DELUNA PATIENT MEDICARE (WNR) MEDICARE (M) PART A January 10, 2012 PART A [id number] [phone] MIKIE GILL PATIENT MEDICARE (WNR) MEDICARE (M) PART B January 10, 2012 PART B [id number] GILL DELUNA PATIENT MEDICARE (WNR) MEDICARE (M) PART A January 10, 2012 PART A [id number] GILL DELUNA PATIENT UNICARE PREFERRED PROVIDER ORGANIZAT ION (PPO) [place] RE STATE INDE* * Mar 11, 2015 [id number] MADAI DELUNA [facility] (WNR) MEDICARE ADVANTAGE [facility] (WNR) Mar 11, 2021 [id number] [phone] GILL DELUNA PATIENT WELLCARE [facility] (WNR) MEDICARE ADVANTAGE [facility] (WNR) Sep 11, 2021 [id number] [phone] GILL DELUNA PATIENT Selected Encounter This section includes the information on record at [place] for the Encounter. Date/Time Encounter Type Encounter Description Reason Provider Source Jul 09, 2024 09:35 AM QNHP OL DIG ASSMT&MGMT 11-20 CLINICAL PHARMACY ICD-10-CM E11.9 Type 2 diabetes mellitus without complications PAULETTE EDUARDO Encounter Template Text not used by [place] Assessments - Encounter Diagnoses This section includes the primary and secondary diagnoses documented for the Encounter. Date/Time Primary/Secondary Diagnosis Diagnosis Name Provider Source Jul 09, 2024 09:43 AM PRIMARY Type 2 diabetes mellitus without complications [facility] Plan of Treatment: Future Appointments (+ 6 [...] - MEDICINE [place] [place] [facility] Jul 31, 2024 02:00 PM AMBULATORY - MEDICINE [place] [place] [facility] Aug 16, 2024 11:00 AM AMBULATORY - MEDICINE [place] [place] [facility] Aug 22, 2024 01:00 PM AMBULATORY - MEDICINE [place] [place] [facility] Aug 26, 2024 03:30 PM AMBULATORY - MEDICINE [place] [facility] Oct 17, 2024 01:00 PM AMBULATORY - MEDICINE [place] [facility] Oct 24, 2024 10:30 AM AMBULATORY - PSYCHIATRY [place] [facility] [place] [facility] Oct 24, 2024 10:30 AM AMBULATORY [place] [facility] [facility] Oct 29, 2024 08:30 AM AMBULATORY - MEDICINE [facility] Dec 12, 2024 10:30 AM AMBULATORY - MEDICINE [place] [facility] Active, Pending, and Scheduled Orders This [...] 2024 09:12 PM Consult Order [facility] Cons Fountain Waitress/Waiter's Choice [facility] Lab Results: +/- 30 days of the [...] Range Comment Jul 25, 2024 11:45 AM [facility] HEMOGLOBIN A1C PANEL Specimen Type: BLOOD Comment: [...] Jul 16, 2024 02:11 PM Reporting Lab: [address] [address] Performing Lab: [address] [address] HEMOGLOBIN A1C 8.5 H 4.0-5.6 Jul 25, 2024 11:45 AM [facility] TSH Specimen Type: SERUM No comment entered. Ordering Provider: MARIIA ABBOTT Report Released Date/Time: Jul 16, 2024 02:11 PM Reporting [facility] [address] [address] Performing Lab: [facility] [address] TSH 2.04 u[IU]/mL 0.35-5.00 Jul 25, 2024 11:45 AM [place] LIPID PANEL FASTING Specimen Type: SERUM No comment entered. Ordering Provider: MARIIA ABBOTT Report Released Date/Time: Jul 16, 2024 02:11 PM Reporting Lab: [facility] [address] [address] Performing Lab: [facility] [address] CHOLESTEROL 118 mg/dL TRIGLYCERIDE 77 mg/dL 0-150 LDL calculated 58 mg/dL 0-129 CHOL/HDL 2.6 HDL CHOLESTEROL 45 mg/dL 40-60 Jul 25, 2024 11:45 AM [place] BASIC METABOLIC PANEL (fasting) Specime n Type: SERUM No comment entered. Ordering Provider: MARIIA ABBOTT Report Released Date/Time: Jul 16, 2024 02:11 PM Reporting Lab: [facility]ITAL[facility] [address] [address] Performing Lab: [facility]ITALTR[facility]ITAL[facility]ETS [address] [address] UREA NITROGEN 39 mg/dL H 7-25 GLUCOSE 239 mg/dL H 65-100 SODIUM 140 mmol/L 135-145 POTASSIUM 4.4 mmol/L 3.5-5.0 CHLORIDE 104 mmol/L 100-110 CO2 25 meq/L 20-30 CREATININE, Serum 1.03 mg/dL 0.50-1.40 eGFR(CKD-EPI 2020) 75 mL/min >60 Jul 25, 2024 11:45 AM [facility] LIVER FUNCTION Specimen Type: SERUM No comment entered. Ordering Provider: MARIIA ABBOTT Report Released Date/Time: Jul 16, 2024 02:11 PM Reporting Lab: [address] [address] Performing Lab: [address] [address] PROTEIN,TOTAL 6.8 g/dL 6.0-8.3 ALBUMIN 3.6 g/dL 3.5-5.0 ALKALINE PHOSPHATASE 71 U/L 40-150 AST 17 U/L 5-34 ALT 18 U/L BILIRUBIN, TOTAL 0.5 mg/dL 0.2-1.2 Jul 25, 2024 11:45 AM [facility] CBC AND DIFF (AUTO) Specimen Type: BLOOD No comment entered. Ordering Provider: MARIIA ABBOTT Report Released Date/Time: Jul 16, 2024 02:11 PM Reporting Lab: [address] [address] Performing Lab: [address] [address] WBC 6.11 10*3/uL 4.50-11.00 RBC 4.86 10*6/uL [...] 0.0 0.0-0.0 NRBC, ABS 0.00 10*3/uL 0.00-0.00 Encounter Notes: All associated encounter notes This section contains the clinical notes associated to the Encounter. Date/Time Encounter Note(s) Provider Source Jul 09, 2024 09:35 AM MEDICATION MGT CON SULT: LOCAL TITLE: CONSULT REPORT/NON FORMULARY PADR STANDARD TITLE: MEDICATION MGT CONSULT DATE OF NOTE: JUL 09, 2024@09:35 ENTRY DATE: JUL 09, 2024@09:35:30 AUTHOR: VIV EDUARDO COSIGNER: URGENCY: STATUS: COMPLETED The medical record has been reviewed with regard to this restricted drug request. Medication requested: TIRZEPATIDE 5MG/0.5ML INJ,SOLN PACK,4 Medication indication: DM II Medical history relevant to this request: Pt with elevated A1c, unable to tolerate metformin and/or empagliflozin. Currently using insulin aspart/glargine and semaglutide. Pt is on low dose insulin glargine. Per comments on consult, pt with CVD/PVD. Per chart review, pt with albuminuria. Pt appears to be without contraindication for use, however, pt is overdue for eye exam (unclear if being followed in the community but notes indicate last exam 04/2022). In addition, pts with CVD/albuminuria should remain on semaglutide if unable to use metformin/empagliflozin for CV benefit. This is recommended until SURPASS-CVOT trial has finished, which has not yet occurred. Per CFU: Primary outcome results for the tirzepatide cardiovascular outcomes trial (SURPASS-CVOT) are not expected until June 2024. Until SURPASS-CVOT is completed, patients with established ASCVD or CKD should ideally be on empagliflozin for its cardiorenal benefits when switching from semaglutide to tirzepatide. If eye exam is up to date and pt understands reduced CV protection with tirzepatide, please resubmit. The request does not meet criteria - Compelling evidence for the requested indication is lacking /simone/ Viv Eduardo PharmD, [facility] Clinical Drug And Alcohol Counsellor Signed: 07/09/2024 09:43 VIV EDUARDO [facility]
--- OUTSIDE RECORDS SUMMARY | 2024-08-21 23:33 | XMS_ITS ---
Author Name Department [place] Organization [place] Address [address] [place] [address] Care Team Providers Care Tile Setter Apprentice Name Role Phone MARIIA BROUSSARD Primary [...] Patient's Relationship to Policy [employer] EXPRESS SCRIPTS ([id number]) PRESCRIPT ION [facility] Mar 11, 2018 [id number] MADAI DELUNA OTHER RELATIONSHIP [facility] PREFERRED PROVIDER ORGANIZAT ION (PPO) Jun 11, 2011 [id number] [phone] MADAI DELUNA PATIENT HUMANA [facility] (WNR) MEDICARE ADVANTAGE [facility] (WNR) Sep 11, 2022 [id number] [phone] [place] PATIENT MEDICARE (WNR) MEDICARE (M) PART A January 10, 2012 PART A [id number] MIKIE GILL PATIENT MEDICARE (WNR) MEDICARE (M) PART B January 10, 2012 PART B [id number] [phone] GILL DELUNA PATIENT MEDICARE (WNR) MEDICARE (M) PART A January 10, 2012 PART A [id number] [phone] GILL DELUNA PATIENT UNICARE PREFERRED PROVIDER ORGANIZAT ION (PPO) [place] RE STATE INDE* * Mar 11, 2015 [id number] MADAI DELUNA [facility] (WNR) MEDICARE ADVANTAGE [facility] (WNR) Mar 11, 2021 [id number] GILL DELUNA PATIENT [facility]LLCARE [facility] (WNR) MEDICARE ADVANTAGE [facility] (WNR) Sep 11, 2021 [id number] [phone] GILL DELUNA PATIENT Selected Encounter This section includes the information on record at [place] for the Encounter. Date/Time Encounter Type Encounter Description Reason Pro vider Source Jul 11, 2024 03:01 PM Outpatient Encounter PRIMARY CARE/MEDICINE IHE Encounter [...] 16, 2024 09:40 AM AMBULATORY - MEDICINE [place] [facility] Jul 31, 2024 02:00 PM AMBULATORY - MEDICINE [place] [facility] Aug 16, 2024 11:00 AM AMBULATORY - MEDICINE [place] [facility] Aug 22, 2024 01:00 PM AMBULATORY - MEDICINE [place] [facility] Aug 26, 2024 03:30 PM AMBULATORY - MEDICINE [place] [facility] Oct 17, 2024 01:00 PM AMBULATORY - MEDICINE [place] [facility] Oct 24, 2024 10:30 AM AMBULATORY - PSYCHIATRY [place] [facility] Oct 24, 2024 10:30 AM AMBULATORY - [place]RY [place] [facility] Oct 29, 2024 08:30 AM [facility] Dec 12, 2024 10:30 AM [facility] Active, Pending, and Scheduled Orders This section includes a listing of several types of active, pending, and scheduled orders, including clinic medications orders, diagnostic test orders, procedure orders and consult orders; where the start date of the order is 45 days before the date of the Encounter or 45 days after the date of theEncounter. The data comes from all [place] treatment facilities. Test Date/Time Test Type Test Details Facility Name Jul 16, 2024 09:12 PM Consult Order [facility]-UROLOGY Cons Natural Sciences Professor's Choice [facility] Lab Results: +/- 30 days of the [...] Range Comment Jul 25, 2024 11:45 AM [facility] HEMOGLOBIN A1C PANEL Specimen Type: BLOOD Comment: [...] Jul 16, 2024 02:11 PM Reporting Lab: [facility] [address] [address] Performing Lab: [address] [address] HEMOGLOBIN A1C 8.5 H 4.0-5.6 Jul 25, 2024 11:45 AM [facility] TSH Specimen Type: SERUM No comment entered. Ordering Provider: MARIIA ABBOTT Report Released Date/Time: Jul 16, 2024 02:11 PM Reporting Lab: [address] [place] [address] Performing Lab: [facility] [address] [address] TSH 2.04 u[IU]/mL 0.35-5.00 Jul 25, 2024 11:45 AM [facility] LIPID PANEL FASTING Specimen Type: SERUM No comment entered. Ordering Provider: MARIIA ABBOTT Report Released Date/Time: Jul 16, 2024 02:11 PM Reporting Lab: [facility] [address] [address] Performing Lab: [address] [address] CHOLESTEROL 118 mg/dL TRIGLYCERIDE 77 mg/dL 0-150 LDL calculated 58 mg/dL 0-129 CHOL/HDL 2.6 HDL CHOLESTEROL 45 mg/dL 40-60 Jul 25, 2024 11:45 AM [facility] LIVER FUNCTION Specimen Type: SERUM No comment entered. Ordering Provider: MARIIA ABBOTT Report Released Date/Time: Jul 16, 2024 02:11 PM Reporting Lab: [facility] [address] [address] Performing Lab: [facility] [address] [address] PROTEIN,TOTAL 6.8 g/dL 6.0-8.3 ALBUMIN 3.6 g/dL 3.5-5.0 ALKALINE PHOSPHATASE 71 U/L 40-150 AST 17 U/L 5-34 ALT 18 U/L BILIRUBIN, TOTAL 0.5 mg/dL 0.2-1.2 Jul 25, 2024 11:45 AM [facility] BASIC METABOLIC PANEL (fasting) Specime n Type: SERUM No comment entered. Ordering Provider: MARIIA ABBOTT Report Released Date/Time: Jul 16, 2024 02:11 PM Reporting Lab: [facility] [address] [address] Performing Lab: [facility] [address] [address] UREA NITROGEN 39 mg/dL H 7-25 GLUCOSE 239 mg/dL H 65-100 SODIUM 140 mmol/L 135-145 POTASSIUM 4.4 mmol/L 3.5-5.0 CHLORIDE 104 mmol/L 100-110 CO2 25 meq/L 20-30 CREATININE, Serum 1.03 mg/dL 0.50-1.40 eGFR(CKD-EPI 2020) 75 mL/min >60 Jul 25, 2024 11:45 AM [facility] CBC AND DIFF (AUTO) Specimen Type: BLOOD No comment entered. Ordering Provider: MARIIA ABBOTT Report Released Date/Time: Jul 16, 2024 02:11 PM Reporting Lab: [facility] [address] [facility] [address] Performing Lab: [facility] [address] [facility] [address] WBC 6.11 10*3/uL 4.50-11.00 RBC 4.86 10*6/uL [...] 03, 2024 10:00 AM VA-TOBACCO NEVER USED [facility] Tobacco Use History This section includes a history of the smoking, or tobacco-related health factors, that were collected on or before the date of the Encounter. The data comes from the [place] facility where the Encounter took place. Date/Time Smoking Status/Tobacco Use Comment F acility Dec 12, 2022 03:10 PM VA-TOBACCO NEVER USED [facility] Encounter Notes: All associated encounter notes This section contains the clinical notes associated to the Encounter. Date/Time Encounter Note(s) Provider Source Jul 11, 2024 03:01 PM MEDICATION MGT NOT E: LOCAL TITLE: OUTPATIENT MEDICATION REQUEST STANDARD TITLE: MEDICATION MGT NOTE DATE OF NOTE: JUL 11, 2024@15:01 ENTRY DATE: JUL 11, 2024@15:01:36 AUTHOR: ABDI ALMARAZ EXP COSIGNER: URGENCY: STATUS: COMPLETED Medication Request Date of Request: Jun Is this a New Medication? No PLEASE RENEW AND MAIL 4) CHLORTHALIDONE 25MG TAB TAKE ONE TABLET BY MOUTH ONCE ACTIVE DAILY TO REMOVE FLUID/CONTROL BLOOD PRESSURE 11) LORAZEPAM 0.5MG TAB TAKE ONE TABLET BY MOUTH ONCE ACTIVE DAILY FOR ANXIETY /es/ ABDI ALMARAZ LPN LPN Signed: 07/11/2024 15:02 Receipt Acknowledged By: 07/12/2024 09:47 /es/ ZAID MCGRAW M.D. 07/12/2024 11:48 /simone/ MARIIA BROUSSARD MD PHYSICIAN ABDI ALMARAZ
--- OUTSIDE RECORDS SUMMARY | 2024-08-21 23:33 | XMS_ITS | Encounter Summary ---
Author Name [facility] [place] [facility] [place] Address [address] [place] [address] Care Team Providers Care Special Distribution Clerk Name Role Phone MARIIA BROUSSARD Primary Care [...] Patient's Relationship to Policy Mancera EXPRESS SCRIPTS ([id number]) PRESCRIPT ION [facility] Mar 11, 2018 [id number] [phone] MADAI DELUNA OTHER RELATIONSHIP [facility] PREFERRED PROVIDER ORGANIZAT ION (PPO) Jun 11, 2011 [id number] MADAI DELUNA PATIENT HUMANA [facility] (WNR) MEDICARE ADVANTAGE [facility] (WNR) Sep 11, 2022 [id number] [phone] [place] PATIENT MEDICARE (WNR) MEDICARE (M) PART A January 10, 2012 PART A [id number] MIKIE GILL PATIENT MEDICARE (WNR) MEDICARE (M) PART B January 10, 2012 PART B [id number] [phone] GILL DELUNA PATIENT MEDICARE (WNR) MEDICARE (M) PART A January 10, 2012 PART A [id number] GILL DELUNA PATIENT UNICARE PREFERRED PROVIDER ORGANIZAT ION (PPO) [place] RE STATE INDE* * Mar 11, 2015 [id number] MADAI DELUNA [facility] (WNR) MEDICARE ADVANTAGE [facility] (WNR) Mar 11, 2021 [id number] GILL DELUNA PATIENT WELLCARE [facility] (WNR) MEDICARE ADVANTAGE [facility] (WNR) Sep 11, 2021 [id number] GILL DELUNA PATIENT Selected Encounter This section includes the information on record at [place] for the Encounter. Date/Time Encounter Type Encounter Description Reason Pro vider Source Jul 08, 2024 04:06 PM Outpatient Encounter PRIMARY CARE/MEDICINE IHE Encounter [...] - MEDICINE [place] [facility] [facility] Jul 31, 2024 02:00 PM AMBULATORY - MEDICINE [place] [facility] [place] [facility] Aug 16, 2024 11:00 AM AMBULATORY - MEDICINE [place] [facility] [facility] Aug 22, 2024 01:00 PM AMBULATORY - MEDICINE [place] [facility] [place] [facility] Aug 26, 2024 03:30 PM AMBULATORY - MEDICINE [place] [facility] [place] [facility] Oct 17, 2024 01:00 PM AMBULATORY - MEDICINE [place] [facility] [place] [facility] Oct 24, 2024 10:30 AM AMBULATORY - PSYCHIATRY [place] [facility] [facility] Oct 24, 2024 10:30 AM AMBULATORY - [place]RY [place] [facility] Oct 29, 2024 08:30 AM AMBULATORY - MEDICINE [facility] Dec 12, 2024 10:30 AM AMBULATORY - MEDICINE [facility] Active, Pending, and Scheduled Orders This [...] 16, 2024 09:12 PM Consult Order [facility] Cons [employer] [facility] Lab Results: +/- 30 days of the [...] Range Comment Jul 25, 2024 11:45 AM [facility] TSH Specimen Type: SERUM No comment entered. Ordering Provider: MARIIA ABBOTT Report Released Date/Time: Jul 16, 2024 02:11 PM Reporting Lab: [facility] [address] [facility] [address] Performing Lab: [address] [address] TSH 2.04 u[IU]/mL 0.35-5.00 Jul 25, 2024 11:45 AM [facility] HEMOGLOBIN A1C PANEL Specimen Type: BLOOD Comment: [...] Jul 16, 2024 02:11 PM Reporting Lab: [facility] [address] [facility] [address] Performing [facility]: [facility] [address] [facility] [address] HEMOGLOBIN A1C 8.5 H 4.0-5.6 Jul 25, 2024 11:45 AM [facility] LIPID PANEL FASTING Specimen Type: SERUM No comment entered. Ordering Provider: MARIIA ABBOTT Report Released Date/Time: Jul 16, 2024 02:11 PM Reporting [facility]: [facility] [address] [facility] [address] Performing Lab: [address] [address] CHOLESTEROL 118 mg/dL TRIGLYCERIDE 77 mg/dL 0-150 LDL calculated 58 mg/dL 0-129 CHOL/HDL 2.6 HDL CHOLESTEROL 45 mg/dL 40-60 Jul 25, 2024 11:45 AM [facility] BASIC METABOLIC PANEL (fasting) Specime n Type: SERUM No comment entered. Ordering Provider: MARIIA ABBOTT Report Released Date/Time: Jul 16, 2024 02:11 PM Reporting Lab: [address] [address] Performing Lab: [address] [address] UREA NITROGEN 39 mg/dL H 7-25 GLUCOSE 239 mg/dL H 65-100 SODIUM 140 mmol/L 135-145 POTASSIUM 4.4 mmol/L 3.5-5.0 CHLORIDE 104 mmol/L 100-110 CO2 25 meq/L 20-30 CREATININE, Serum 1.03 mg/dL 0.50-1.40 eGFR(CKD-EPI 2020) 75 mL/min >60 Jul 25, 2024 11:45 AM [facility] LIVER FUNCTION Specimen Type: SERUM No comment entered. Ordering Provider: MARIIA ABBOTT Report Released Date/Time: Jul 16, 2024 02:11 PM Reporting Lab: [address] [address] Performing Lab: [address] [place] [address] PROTEIN,TOTAL 6.8 g/dL 6.0-8.3 ALBUMIN 3.6 g/dL 3.5-5.0 ALKALINE PHOSPHATASE 71 U/L 40-150 AST 17 U/L 5-34 ALT 18 U/L BILIRUBIN, TOTAL 0.5 mg/dL 0.2-1.2 Jul 25, 2024 11:45 AM [facility] CBC AND DIFF (AUTO) Specimen Type: BLOOD No comment entered. Ordering Provider: MARIIA ABBOTT Report Released Date/Time: Jul 16, 2024 02:11 PM Reporting Lab: [address] [address] Performing Lab: [address] [address] WBC 6.11 10*3/uL 4.50-11.00 RBC 4.86 10*6/uL [...] 03, 2024 10:00 AM VA-TOBACCO NEVER USED [facility] Tobacco Use History This section includes a history of the smoking, or tobacco-related health factors, that were collected on or before the date of the Encounter. The data comes from the [place] facility where the Encounter took place. Date/Time Smoking Status/Tobacco Use Comment F del Dec 12, 2022 03:10 PM VA-TOBACCO NEVER USED [place] [employer] Encounter Notes: All associated encounter notes This section contains the clinical notes associated to the Encounter. Date/Time Encounter Note(s) Provider Source Jul 08, 2024 04:06 PM PRIMARY CARE SECUR E MESSAGING: LOCAL TITLE: PRIMARY CARE SECURE MESSAGING STANDARD TITLE: PRIMARY CARE SECURE MESSAGING DATE OF NOTE: JUL 08, 2024@16:06 ENTRY DATE: JUL 08, 2024@16:06:04 AUTHOR: NEGRO CLARKE EXP COSIGNER: URGENCY: STATUS: COMPLETED ------Original Message -------- Sent: 07/08/2024 04:04 PM ET From: GILL DELUNA To: BOBO,O_P [facility] Subject: Medication:renew could someone please renew my chlorthalidone and Lorazepam thank you /simone/ NEGRO DAMICO Signed: 07/08/2024 16:06 Receipt Acknowledged By: 07/11/2024 15:02 /es/ ABDI ALMARAZ LPN LPN 07/11/2024 15:12 /es/ ESTHELA MORTON RN REGISTERED NURSE for NEGRO OLVERA [facility]
--- OUTSIDE RECORDS SUMMARY | 2024-08-21 23:33 | XMS_ITS | Encounter Summary ---
Author Name [facility] [place] Address [address] [place] [address] Care Team Providers Care Scrapper Name Role Phone MARIIA BROUSSARD Primary Care [...] Patient's Relationship to Policy [employer] SCRIPTS ([id number]) PRESCRIPT ION [facility] Mar 11, 2018 [id number] [phone] MADAI DELUNA OTHER RELATIONSHIP [facility] PREFERRED PROVIDER ORGANIZAT ION (PPO) Jun 11, 2011 [id number] MADAI DELUNA PATIENT HUMANA [facility] (WNR) MEDICARE ADVANTAGE [facility] (WNR) Sep 11, 2022 [id number] [phone] [place] PATIENT MEDICARE (WNR) MEDICARE (M) PART A January 10, 2012 PART A [id number] [place]IE G[place] PATIENT MEDICARE (WNR) MEDICARE (M) PART B January 10, 2012 PART B [id number] GILL DELUNA PATIENT MEDICARE (WNR) MEDICARE (M) PART A January 10, 2012 PART A [id number] GILL DELUNA PATIENT UNICARE PREFERRED PROVIDER ORGANIZAT ION (PPO) [place] RE STATE INDE* * Mar 11, 2015 [id number] MADAI DELUNA [facility] (WNR) MEDICARE ADVANTAGE [facility] (WNR) Mar 11, 2021 [id number] GILL DELUNA PATIENT WELLCARE [facility] (WNR) MEDICARE ADVANTAGE [facility] (WNR) Sep 11, 2021 [id number] GILL DELUNA PATIENT Selected Encounter This section includes the information on record at [place] for the Encounter. Date/Time Encounter Type Encounter Description Reason Pro vider Source Jul 03, 2024 04:00 PM Outpatient Encounter PRIMARY CARE/MEDICINE IHE Encounter Template Text not used by [place] Plan of Treatment: Future Appointments (+ 6 months) and Future Tests (+/- 45 days) The Plan of Treatment section includes future care activities for the patient from all [place] treatmentfacilities. This section includes future appointments and future orders which are active, pending or scheduled. Future Appointments This section includes appointments that were scheduled to occur 6 months from the date of the Encounter, up to a maximum of 20 appointments. The data comes from all [place] treatment facilities. Appointment Date/Time Appointment Type Appointme nt Facility Name Jul 16, 2024 09:40 AM AMBULATORY - [place]ICINE [place] [place] [facility] Jul 31, 2024 02:00 PM AMBULATORY - MEDICINE [place] [facility] [place] [facility] Aug 16, 2024 11:00 AM AMBULATORY - MEDICINE [place] [facility] Aug 22, 2024 01:00 PM AMBULATORY - MEDICINE [place] [place] [facility] Aug 26, 2024 03:30 PM AMBULATORY - MEDICINE [place] [facility] [place] [facility] Oct 17, 2024 01:00 PM AMBULATORY - MEDICINE [place] [facility] [place] [facility] Oct 24, 2024 10:30 AM AMBULATORY - PSYCHIATRY [place] [facility] [place] [facility] Oct 24, 2024 10:30 AM AMBULATORY [place] [facility] Oct 29, 2024 08:30 AM AMBULATORY - MEDICINE [facility] [facility] Dec 12, 2024 10:30 AM AMBULATORY - MEDICINE [facility] Active, Pending, and Scheduled Orders This section includes a listing of several types of active, pending, and scheduled orders, including clinic medications orders, diagnostic test orders, procedure orders and consult orders; where the start date of the order is 45 days before the date of the Encounter or 45 days after the date of theEncounter. The data comes from all [place] treatment facilities. Test Date/Time Test Type Test Details Facility Name Jul 16, 2024 09:12 PM Consult Order [facility]-UROLOG[facility] Cons [place] [facility] Lab Results: +/- 30 days of the encounter This section includes the Chemistry and Hematology Lab Results on record with [place] for the patient. Radiology Reports and Pathology Reports are provided separately, in subsequent sections. Lab Results This section contains the Chemistry/Hematology Results that were resulted 30 days before or 30 daysafter the date of the Encounter. Date/Time Source Result Type Result - Unit Interpretation Reference Range Comment Jul 25, 2024 11:45 AM [facility] TSH Specimen Type: SERUM No comment entered. Ordering Provider: MARIIA ABBOTT Report Released Date/Time: Jul 16, 2024 02:11 PM Reporting Lab: [facility] [address] [facility] [address] Performing Lab: [address] [address] TSH 2.04 u[IU]/mL 0.35-5.00 Jul 25, 2024 11:45 AM [facility] HEMOGLOBIN A1C PANEL Specimen Type: BLOOD Comment: [...] Jul 16, 2024 02:11 PM Reporting Lab: [facility] [address] [facility] [address] Performing Lab: [facility] [address] [facility] [address] HEMOGLOBIN A1C 8.5 H 4.0-5.6 Jul 25, 2024 11:45 AM [facility] LIPID PANEL FASTING Specimen Type: SERUM No comment entered. Ordering Provider: MARIIA ABBOTT Report Released Date/Time: Jul 16, 2024 02:11 PM Reporting Lab: [facility] [address] [facility] [address] Performing Lab: [address] [address] CHOLESTEROL 118 mg/dL TRIGLYCERIDE 77 mg/dL 0-150 LDL calculated 58 mg/dL 0-129 CHOL/HDL 2.6 HDL CHOLESTEROL 45 mg/dL 40-60 Jul 25, 2024 11:45 AM [facility] BASIC METABOLIC PANEL (fasting) Specime n Type: SERUM No comment entered. Ordering Provider: MARIIA ABBOTT Report Released Date/Time: Jul 16, 2024 02:11 PM Reporting Lab: [address] [address] Performing Lab: [address] [address] UREA NITROGEN 39 mg/dL H 7-25 GLUCOSE 239 mg/dL H 65-100 SODIUM 140 mmol/L 135-145 POTASSIUM 4.4 mmol/L 3.5-5.0 CHLORIDE 104 mmol/L 100-110 CO2 25 meq/L 20-30 CREATININE, Serum 1.03 mg/dL 0.50-1.40 eGFR(CKD-EPI 2020) 75 mL/min >60 Jul 25, 2024 11:45 AM [facility] LIVER FUNCTION Specimen Type: SERUM No comment entered. Ordering Provider: MARIIA ABBOTT Report Released Date/Time: Jul 16, 2024 02:11 PM Reporting Lab: [address] [address] Performing Lab: [address] [place] [address] PROTEIN,TOTAL 6.8 g/dL 6.0-8.3 ALBUMIN 3.6 g/dL 3.5-5.0 ALKALINE PHOSPHATASE 71 U/L 40-150 AST 17 U/L 5-34 ALT 18 U/L BILIRUBIN, TOTAL 0.5 mg/dL 0.2-1.2 Jul 25, 2024 11:45 AM [facility] CBC AND DIFF (AUTO) Specimen Type: BLOOD No comment entered. Ordering Provider: MARIIA ABBOTT Report Released Date/Time: Jul 16, 2024 02:11 PM Reporting Lab: [address] [address] Performing Lab: [address] [address] WBC 6.11 10*3/uL 4.50-11.00 RBC 4.86 10*6/uL [...] and tobacco- related health factors from the [place] facility where the Encounter took place. Current Smoking Status This section includes the most current smoking, or tobacco-related health factor, from the [place] facility where the Encounter took place. Date/Time Current Smoking Status Comment Nadine ity May 03, 2024 10:00 AM VA-TOBACCO NEVER USED [facility] Tobacco Use History This section includes a history of the smoking, or tobacco-related health factors, that were collected on or before the date of the Encounter. The data comes from the [place] facility where the Encounter took place. Date/Time Smoking Status/Tobacco Use Comment F del Dec 12, 2022 03:10 PM VA-TOBACCO NEVER USED [facility] Encounter Notes: All associated encounter notes This section contains the clinical notes associated to the Encounter. 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 -Side effects including but not limited to severe irritation, swelling, redness, crusting discussed. -fluorouracil will selectively destroy abnormal cells while leaving the normal skin cells alone. This will result in spotty areas of redness and peeling which sometimes can be interpreted as a allergic reaction to the cream, but is in fact a therapeutic effect of the cream. The inflamed areas will heal up with new skin cells after he finishes the 2 weeks of application. -this is the expected reaction of the cream. Explain that the inflammation typically subsides approximately two weeks after topical fluorouracil is discontinued and that it typically takes four to six weeks (two to four weeks of which are active treatment) for the skin to progress through erythema, blistering, necrosis with erosion, and re- epithelialization. -he may stop application for a couple days for any severe inflammatory reaction, which may include bleeding or instense discomfort. 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 -Side effects including but not limited to severe irritation, swelling, redness, crusting discussed. -fluorouracil will selectively destroy abnormal cells while leaving the normal skin cells alone. This will result in spotty areas of redness and peeling which sometimes can be interpreted as a allergic reaction to the cream, but is in fact a therapeutic effect of the cream. The inflamed areas will heal up with new skin cells after he finishes the 2 weeks of application. -this is the expected reaction of the cream. Explain that the inflammation typically subsides approximately two weeks after topical fluorouracil is discontinued and that it typically takes four to six weeks (two to four weeks of which are active treatment) for the skin to progress through erythema, blistering, necrosis with erosion, and re- epithelialization. -he may stop application for a couple days for any severe inflammatory reaction, which may include bleeding or instense discomfort. -Regardless- discontinue treatment at 4 weeks julia /simone/ DENILSON GARCIA DNP, SURGICAL RN-C NURSE PRACTITIONER Signed: 07/08/2024 07:38 Receipt Acknowledged By: * AWAITING SIGNATURE * [place] ROLAND [place] [facility] [place] [facility] Jul 03, 2024 04:00 PM PRIMARY CARE SECURE MESSAGING: LOCAL TITLE: PRIMARY CARE SECURE MESSAGING STANDARD TITLE: PRIMARY CARE SECURE MESSAGING DATE OF NOTE: JUL 03, 2024@16:00 ENTRY DATE: JUL 03, 2024@16:00:28 AUTHOR: NEGRO CLARKE EXP COSIGNER: URGENCY: STATUS: COMPLETED PRIMARY CARE SECURE MESSAGING Has ADDENDA ------Original Message ------- Sent: 07/03/2024 03:57 PM ET From: GILL DELUAN To: Katerin BROUSSARD_P[place] [facility] Subject: General:Dermatology Dermatology gave me a topical 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 I would like to know how long to continue with this cream I started taking it on June 11 /simone/ NEGRO DAMICO Signed: 07/03/2024 16:00 Receipt Acknowledged By: 07/05/2024 13:52 /simone/ ABDI ALMARAZ LPN LPN 07/11/2024 08:22 /es/ ESTHELA MORTON, RN REGISTERED NURSE for ZAID ODONNELL 07/05/2024 ADDENDUM STATUS: COMPLETED Attaaching Prescriber. 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 -Side effects including but not limited to severe irritation, swelling, redness, crusting discussed. -fluorouracil will selectively destroy abnormal cells while leaving the normal skin cells alone. This will result in spotty areas of redness and peeling which sometimes can be interpreted as a allergic reaction to the cream, but is in fact a therapeutic effect of the cream. The inflamed areas will heal up with new skin cells after he finishes the 2 weeks of application. -this is the expected reaction of the cream. Explain that the inflammation typically subsides approximately two weeks after topical fluorouracil is discontinued and that it typically takes four to six weeks (two to four weeks of which are active treatment) for the skin to progress through erythema, blistering, necrosis with erosion, and re- epithelialization. -he may stop application for a couple days for any severe inflammatory reaction, which may include bleeding or instense discomfort. -Regardless- discontinue treatment at 4 weeks duration /simone/ DENILSON GARCIA DNP, GET-C NURSE PRACTITIONER Signed: 07/08/2024 07:38 Receipt Acknowledged By: 07/08/2024 10:08 /es/ KEVIN HERNANDEZ LPN, [place] [facility] [place] [facility]
--- OUTSIDE RECORDS SUMMARY | 2024-08-21 23:33 | XMS_ITS | Encounter Summary ---
Author Name [facility] [place] [facility] Address [address] [place] [address] Care Team Providers Care Secretary To Board Of Commissioners Name Role Phone MARIIA BROUSSARD Primary Care [...] Patient's Relationship to Policy [employer] ([id number]) PRESCRIPT ION [facility] Mar 11, 2018 [id number] MADAI DELUNA OTHER RELATIONSHIP [facility] PREFERRED PROVIDER ORGANIZAT ION (PPO) Jun 11, 2011 [id number] MADAI DELUNA PATIENT [employer] MCR (WNR) MEDICARE ADVANTAGE MCR (WNR) Sep 11, 2022 [id number] [phone] [place] PATIENT MEDICARE (WNR) MEDICARE (M) PART A January 10, 2012 PART A [id number] [phone] [place] PATIENT MEDICARE (WNR) MEDICARE (M) PART B January 10, 2012 PART B [id number] [place] PATIENT MEDICARE (WNR) MEDICARE (M) PART A January 10, 2012 PART A [id number] [phone] GILL DELUNA PATIENT [place] PREFERRED PROVIDER ORGANIZAT ION (PPO) CRISTHIAN LEAH GU* * Mar 11, 2015 [id number] MADAI DELUNA [facility] (WNR) MEDICARE ADVANTAGE [facility] (WNR) Mar 11, 2021 [id number] [id number] GILL DELUNA PATIENT [facility] (WNR) MEDICARE ADVANTAGE [facility] (WNR) Sep 11, 2021 [id number] GILL DELUNA PATIENT Selected Encounter This section includes the information on record at [place] for the Encounter. Date/Time Encounter Type Encounter Description Reason Provider Source Jul 03, 2024 09:30 AM MTMS BY PHARM NELA 15 MIN CLINICAL PHARMACY ICD-10-CM E11.9 Type 2 diabetes mellitus without complications DARRICK ARMSTRONG [facility] Encounter Template Text not used by [place] Assessments - Encounter Diagnoses This section includes the primary and secondary diagnoses documented for the Encounter. Date/Time Primary/Secondary Diagnosis Diagnosis Name Provider Source Jul 03, 2024 10:35 AM PRIMARY Type 2 diabetes mellitus without complications BRANDON ARMSTRONG [facility] Plan of Treatment: Future Appointments (+ 6 [...] - MEDICINE [place] [facility] [place] [facility] Jul 31, 2024 02:00 PM AM[place]UL[place]IC[place] [facility] [place] [facility] Aug 16, 2024 11:00 AM [place]ULAT[place] [facility] [facility] [place] [facility] Aug 22, 2024 01:00 PM [place]UL[place] [facility] [facility] [facility] Aug 26, 2024 03:30 PM [place]UL[place]ORY [place] [facility] [facility] [facility] Oct 17, 2024 01:00 PM AMBULATORY - [place]ICINE [place] [facility] [facility] [place] [facility] Oct 24, 2024 10:30 AM AMBULATORY - PSYCHIATRY [place] [facility] [place] [facility] Oct 24, 2024 10:30 AM AMBULATORY [place] [facility] Oct 29, 2024 08:30 AM AMBULATORY - MEDICINE [facility] Dec 12, 2024 10:30 AM [place] [place] [facility] Active, Pending, and Scheduled Orders This [...] Jul 16, 2024 09:12 PM Consult Order [facility] Cons Chief Nuclear Medicine Technologist's Choice [facility] Lab Results: +/- 30 days of the [...] Range Comment Jul 25, 2024 11:45 AM [facility] HEMOGLOBIN A1C PANEL Specimen Type: BLOOD Comment: [...] Jul 16, 2024 02:11 PM [facility] [address] [address] Performing Lab: [address] [address] HEMOGLOBIN A1C 8.5 H 4.0-5.6 Jul 25, 2024 11:45 AM [facility] TSH Specimen Type: SERUM No comment entered. Ordering Provider: MARIIA ABBOTT Report Released Date/Time: Jul 16, 2024 02:11 PM Reporting [facility]: [facility] [address] [address] Performing Lab: [facility] [address] [address] TSH 2.04 u[IU]/mL 0.35-5.00 Jul 25, 2024 11:45 AM [facility] LIPID PANEL FASTING Specimen Type: SERUM No comment entered. Ordering Provider: MARIIA ABBOTT Report Released Date/Time: Jul 16, 2024 02:11 PM Reporting Lab: [facility] [address] [address] Performing Lab: [facility] [address] [address] CHOLESTEROL 118 mg/dL TRIGLYCERIDE 77 mg/dL 0-150 LDL calculated 58 mg/dL 0-129 CHOL/HDL 2.6 HDL CHOLESTEROL 45 mg/dL 40-60 Jul 25, 2024 11:45 AM [facility] LIVER FUNCTION Specimen Type: SERUM No comment entered. Ordering Provider: MARIIA ABBOTT Report Released Date/Time: Jul 16, 2024 02:11 PM Reporting Lab: [facility] [address] [address] Performing Lab: [facility] [address] [address] PROTEIN,TOTAL 6.8 g/dL 6.0-8.3 ALBUMIN 3.6 g/dL 3.5-5.0 ALKALINE PHOSPHATASE 71 U/L 40-150 AST 17 U/L 5-34 ALT 18 U/L BILIRUBIN, TOTAL 0.5 mg/dL 0.2-1.2 Jul 25, 2024 11:45 AM [facility] BASIC METABOLIC PANEL (fasting) Specime n Type: SERUM No comment entered. Ordering Provider: MARIIA ABBOTT Report Released Date/Time: Jul 16, 2024 02:11 PM Reporting Lab: [address] [address] Performing Lab: [address] [address] UREA NITROGEN 39 mg/dL H 7-25 GLUCOSE 239 mg/dL H 65-100 SODIUM 140 mmol/L 135-145 POTASSIUM 4.4 mmol/L 3.5-5.0 CHLORIDE 104 mmol/L 100-110 CO2 25 meq/L 20-30 CREATININE, Serum 1.03 mg/dL 0.50-1.40 eGFR(CKD-EPI 2020) 75 mL/min >60 Jul 25, 2024 11:45 AM [facility] CBC AND DIFF (AUTO) Specimen Type: BLOOD No comment entered. Ordering Provider: MARIIA ABBOTT Report Released Date/Time: Jul 16, 2024 02:11 PM Reporting Lab: [address] [address] Performing Lab: [address] [address] WBC 6.11 10*3/uL 4.50-11.00 RBC 4.86 10*6/uL [...] 06, 2021 09:30 AM VA-TOBACCO NEVER USED [facility] Tobacco Use History This section includes a history of the smoking, or tobacco-related health factors, that were collected on or before the date of the Encounter. The data comes from the [place] facility where the Encounter took place. Date/Time Smoking Status/Tobacco Use Comment F acility Apr 30, 2020 01:00 PM VA-TOBACCO FORMER USER [facility] Apr 30, 2020 01:00 PM VA-TOBACCO QUIT 15 YRS OR MORE [facility] January 09, 2019 02:16 PM VA-TOBACCO FORMER USER [facility] January 09, 2019 02:16 PM VA-TOBACCO QUIT 15 YRS OR MORE [facility] Feb 13, 2018 11:05 AM QUIT TOBACCO USE > 7 YEARS AGO [facility] Feb 28, 2017 01:42 PM LIFETIME NON-TOBACCO USER quit 1976 [facility] Nov 17, 2015 09:53 AM QUIT TOBACCO USE > 7 YEARS AGO [facility] February 08, 2002 03:04 PM QUIT TOBACCO USE > 7 YEARS AGO Patient states he smoked from age [age] and quit. [facility] Aug 10, 2001 03:42 PM NON-TOBACCO USER Stopped tobacco 35 years ago [facility] Encounter Notes: All associated encounter notes This section contains the clinical notes associated to the Encounter. Date/Time Encounter Note(s) Provider Source Jul 03, 2024 10:03 AM PHARMACY OUTPATIEN T NOTE: LOCAL TITLE: PHARMACY CLINIC NOTE STANDARD TITLE: PHARMACY OUTPATIENT NOTE DATE OF NOTE: JUL 03, 2024@10:03 ENTRY DATE: JUL 03, 2024@10:04 AUTHOR: ARMSTRONG,LUX A EXP COSIGNER: URGENCY: STATUS: COMPLETED Patient Name: GILL DELUNA was seen via f2f for follow-up for diabetes management treatment. : January Age: 79 Sex: MALE Race: WHITE Subjective: Pt presents for a f/up. He states he is doing well. The surgery for prostate went well. He continues to have some problems w/ sensor. He called the 1800 number but still this continues to be unresolved. Per prev: Pt is here for follow up. 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 Pt states he has gone through [...] well. 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 Pt successfully connected dexcom clarity to the [...] He is not however looking forward to holidays. He continues to work- has Mondays off. Per prev: Pt was contacted for a f/up. Last 3 days sensor readings much improved without any false readings. PT is using ugo 3 now. He had appt w/ PCP yesterday. He informed the specifications writer he decided to stopp empagliflozin 3 [...] the reader. He has contacted the provided [employer] [place] dedicated line and received several replacement sensors [...] estate. Pt is seeing MH at the [place] and is grateful for that. He also [...] as instructed on 01/23/23. 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 He is glad he is on this equipment. The specifications writer spent close to 20 minutes trying to have pt accept the invitation without success. Both specifications writer and pt agreed for him to [...] 2. Benign Prostatic Hypertrophy with Outflow Obstruction ([facility] [id number]) 3. Erectile Dysfunction ([facility] [id number]) 4. Depression ([facility] [id number]) 5. Actinic keratosis 6. Basal cell carcinoma of skin 7. Vitamin D Deficiency ([facility] [id number]) 8. Contact dermatitis 9. Space-occupying lesion of brain 10. Second degree atrioventricular block 11. Cancer screening follow up 12. Hyperglycemia due to type 2 diabetes mellitus 13. PVD-peripheral vascular disease 14. Hyperlipidemia 15. Elevated PSA 16. Epistaxis * 17. Sleep apnea (SNOMED CT 46436665) 18. Superficial basal cell carcinoma 19. Gastroesophageal reflux disease (SNOMED CT 195899846) 20. Anxiety 21. Diabetes mellitus (SNOMED CT 52639688) 22. Essential hypertension (SNOMED CT 32341183) 23. Body mass index 25-29 - overweight 24. Recurrent major depression in partial remission Objective: Diabetes Medication Regimen: -Insulin Novolog per ICR to 1:7 before breakfast and lunch; and 1:11 at dinner meal ; folow a meal dose calculator* ISF of 1:28 for BG >130 mg/dl pre meal avg 12-16 units/meals -Insulin glargine Semglee 12 units daily hs @10 PM - *decreased on 11/10/23. - self-reduced due to hypoglycemia -Semaglutide 2mg once weekly (Mondays)- started 2 mg dose on 02/13/23 Previous medications for DM: + Hx ADR to metformin IR and SA -empagliflozin 12.5mg daily in AM - stopped 06/2023 - hx of prostate cancer ; could not tolerate Adherence: skips if meal is skipped; otherwise, denies missed doses ADRs: denies Labs: HEMOGLOBIN A1C TREND Collection DT Spec HGBA1c 05/03/2024 13:53 BLOOD 8.1 H 03/01/2024 10:53 BLOOD 7.8 H 08/14/2023 08:00 BLOOD 7.9 H 05/04/2023 13:44 BLOOD 7.6 H 01/12/2023 07:44 BLOOD 8.2 H CBC TREND Collection DT Spec WBC RBC HGB HCT MCV MCH PLT 05/03/2024 13:53 BLOOD 6.25 5.12 15.5 44.7 87.3 30.3 165 01/12/2023 07:44 BLOOD 6.56 5.36 16.7 48.4 90.3 31.2 165 11/15/2022 13:53 BLOOD 7.65 5.49 16.8 48.9 89.1 30.6 151 03/16/2022 09:06 BLOOD 6.46 5.14 15.9 46.5 90.5 30.9 156 12/23/2020 10:14 BLOOD 6.76 4.67 14.3 41.9 89.7 30.6 153 CHEM 7 TREND LAB CUMULATIVE SELECTED Collection DT Spec GLUCOSE BUN CREATIN Sodium K+/Pot CL CO2 05/03/2024 13:53 SERUM 294 H 46 H 1.05 137 4.4 105 21 03/01/2024 10:53 SERUM 224 H 41 H 1.02 132 L 3.9 100 25 08/14/2023 08:00 SERUM 138 H 26 H 1.00 138 4.3 100 29 05/04/2023 13:44 SERUM 226 H 54 H 0.96 138 4.1 104 24 02/28/2023 08:43 SERUM 195 H 33 H 0.92 142 3.6 105 24 LAB CUMULATIVE SELECTED 2 No selection items chosen for this component. CHEM 7 Results Collection DT Spec Sodium K+/Pot CL CO2 GLUCOSE BUN 05/03/2024 13:53 SERUM 137 4.4 105 21 294 H 46 H 03/01/2024 10:53 SERUM 132 L 3.9 100 25 224 H 41 H 08/14/2023 08:00 SERUM 138 4.3 100 29 [...] DT Spec CHOL HDL CHO/HDL LDL-c TRIG 05/03/2024 13:53 SERUM 108 45 2.4 47 79 03/01/2024 10:53 SERUM 117 44 2.7 54 94 01/12/2023 07:44 SERUM 108 40 2.7 48 101 11/15/2022 13:53 SERUM 122 46 2.7 64 60 12/23/2020 10:14 SERUM 106 40 2.7 46 101 THYROID PANEL Collection DT Specimen Test Name Result Units Ref Range 05/03/2024 13:53 SERUM TSH 1.73 uIU/mL 0.35 - 5.00 01/12/2023 07:44 SERUM Free T4 SR-REF 0.89 ng/dL 0.6 - 1.6 VITAMIN D 25-OH Collection DT Specimen Test Name Result Units Ref Range 05/03/2024 13:53 SERUM VITAMIN D (25-OH) 24 ng/mL 20 - 50 SrCr (last 6 weeks): CREATININE-EGFR - NONE FOUND CRCL IBW: CrCl(est): 51.3 mL/min (Creat:1.05 05/03/24) CRCL ACT: 65.04 mL/min CRCL ADJ: 51.3 mL/min (05/03/24) Vitals: Weight (BMI): 171.7 lb [77.88 kg] (12/04/2023 13:32) Height: 65 in [165.1 cm] (12/04/2023 13:32) BMI: 28.6 Active and Recently Outpatient Medications (including Supplies): Active Outpatient Medications Status Active Outpatient Medications (including Supplies): ACCU-CHEK GUIDE (GLUCOSE) TEST STRIP USE 1 STRIP TO TEST ACTIVE BLOOD SUGARS FOUR TIMES A DAY BETHANECHOL CHLORIDE 25MG TAB TAKE TWO TABLETS BY MOUTH ACTIVE TWICE DAILY FOR URINARY RETENTION CEPHALEXIN 500MG CAP TAKE ONE CAPSULE BY MOUTH THREE TIMES ACTIVE A DAY FOR INFECTION CHLORTHALIDONE 25MG TAB TAKE ONE TABLET BY MOUTH ONCE ACTIVE (S) DAILY TO REMOVE FLUID/CONTROL BLOOD PRESSURE CLONIDINE HCL 0.1MG TAB TAKE ONE TABLET BY MOUTH EVERY 12 ACTIVE HOURS TO CONTROL BLOOD PRESSURE DEXTROSE 24GM/31GM SQUEEZE TUBE 1 TUBE BY MOUTH NEEDED ACTIVE FOR LOW BLOOD SUGAR GLUCOSE SENSOR DEXCOM G7 USE 1 SENSOR DIRECTED EVERY 10 ACTIVE DAYS INSULIN,ASPART(EQV-NOVLG)100UN/ML FLXPEN INJECT ACTIVE DIRECTED SUBCUTANEOUSLY THREE TIMES A DAY ACCORDING TO ICR OF 1 UNIT FOR EACH 9 GRAMS OF CARBS BEFORE BREAKFAST AND LUNCH AND 1 UNIT FOR EACH 10 GRAMS OF CARBS BEFORE DINNER MEAL INSULIN,GLARGINE-YFGN 100UNIT/ML PEN 3ML INJECT 11 UNITS ACTIVE SUBCUTANEOUSLY ONCE DAILY FOR DIABETES LANCET,SOFTCLIX USE 1 LANCET DIRECTED FOUR TIMES A DAY ACTIVE TO TEST BLOOD SUGAR LORAZEPAM 0.5MG TAB TAKE ONE TABLET BY [...] NASAL SOLN,NASAL INTO EACH NOSTRIL ACTIVE MEDICATION RECONCILIATION: done BLOOD GLUCOSE MONITORING Date: 11/13/23 Dexcom G7 7 day av [...] 155-279 mg/dl Bedtime avmg/dl;n =13; range: 165-292mg/dl 'Date Date: 07/03/24 Dexcom G7 14 day av mg/dl 19% VERY HIGH 50% HIGH 31% IN RANGE 0% LOW 0% VERY LOW days with CGM data: 21% invitation to dexcom clarity was sent on 11/10/23 to: [email or web address] NUTRITION: Patient eats on avg. 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 Pt did meet w/ the gastroenterology technician [facility] . He will start applying carb [...] Pt may be a good candidate for [facility] once drug shortage is resolved. f/up in June, pt to repeat labs today. Date: 07/03/24 Reviewed the BG from the dexcom sensor - only few day's worth of data. Pt reports many issues w/ the sensor. Recommended to call 1800 number provided. If not, do back up of traditional SMBG. Reviewed nutrition - BG very high today >300 mg/dl. Reviewed adherence to the medications i.e. insulin novolog prior to meals. Recommend to titrate both basal and bolus inssulin. Pt may benefit from swtiching from [facility] to [facility] - pt had ADR to metfomrin and was unable to tolerate empagliflozin f/up in August. DIABETES A1c is ABOVE goal of <7% - Medication management Diabetes -Increase Insulin novolog per ICR to 1:10 before breakfast and lunch; and dinner meal folow a meal dose calculator* provided at the previous visit ISF of 1:28 for BG >130 mg/dl pre meal -Increase Insulin glargine (Semglee) to 15 units daily hs @10 PM *If BG continue to run >130mg/dl fasting increase by 1 unit daily until morning fasting bg at or <130 mg/dl -C/t semaglutide 2mg once weekly (Mondays) - place for [facility] - Reviewed [place] lab results - Monitor for s/sx hypoglycemia [...] - Repeat A1c: 11/2022 HTN: [facility] and ASA 81mg/day. Defer to PCP. ASCVD: LDL < 70, not on statin therapy; defer to PCP Microalb: 8.3 mg/G (12/2020); will order w/ next labs History of Preventive Care: Most recent visit to die designer: 04/2022 Most recent visit to optometry: 10/2021; Diabetes mellitus without retinopathy or macular edema Clinic's Next Scheduled Follow-up: 08/16/24 No barriers; Patient understands and agrees to current treatment plan. If he has any questions, concerns, or changes in current health status he will call [facility]FUTURE APPOINTMENTS: 07/16/2024 09:40 [facility]ARDIOLOGY 07/30/2024 15:30 [facility]/SO/PACT 5 08/26/2024 15:30 [facility]/OPTOMETRY/[place] 10/29/2024 08:30 C[facility]/SO/PODIATRY/JASPAL 12/12/2024 10:30 C[facility]/NO/DERMATOLOGY LINE LEAD AM DM type is : T2D Length of Visit: 30 minutes PBM PharmD Pharmacotherapy Rem V12: PHARMACIST INTERVENTIONS: TYPE 2 DIABETES MELLITUS Medication Intervention(s) Adjust dose or frequency of current medication due to other reason Plan: increase dose of both novolog and glargine Initiate new medication Plan: place for [facility] Medication monitoring, no dosage change required, continue to monitor and assess /es/ LUX ARMSTRONG CLINICAL TIMBER SURVEYOR Signed: 07/08/2024 13:36 Receipt Acknowledged By: 07/08/2024 22:27 /es/ MD PHYSICIAN NATHANIEL SOW,LUX [place]
--- OUTSIDE RECORDS SUMMARY | 2024-08-21 23:33 | XMS_ITS ---
Author Name [facility] [place] Address [address] [place] [address] Care Team Providers Care Sales Assistants And Salespersons Name Role Phone MARIIA BROUSSARD Primary Care [...] Patient's Relationship to Policy [employer] SCRIPTS ([id number]) PRESCRIPT ION [facility] Mar 11, 2018 [id number] MADAI DELUNA OTHER RELATIONSHIP [facility] PREFERRED PROVIDER ORGANIZAT ION (PPO) Jun 11, 2011 [id number] [phone] MADAI DELUNA PATIENT HUMANA [facility] (WNR) MEDICARE ADVANTAGE [facility] (WNR) Sep 11, 2022 [id number] GILL DELUNA PATIENT MEDICARE (WNR) MEDICARE (M) PART A January 10, 2012 PART A [id number] GILL DELUNA PATIENT MEDICARE ([place]NR) MEDICARE (M) PART B January 10, 2012 PART B [id number] GILL DELUNA PATIENT MEDICARE ([place]NR) MEDICARE (M) PART A January 10, 2012 PART A [id number] GILL DELUNA PATIENT UNICARE PREFERRED PROVIDER ORGANIZAT ION (PPO) [facility] RE [facility]* * Mar 11, 2015 [id number] MADAI DELUNA SPOUSE [facility] (WNR) MEDICARE ADVANTAGE [facility] (WNR) Mar 11, 2021 [id number] GILL DELUNA PATIENT WELLCARE [facility] (WNR) MEDICARE ADVANTAGE [facility] (WNR) Sep 11, 2021 [id number] GILL DELUNA PATIENT Selected Encounter This section includes the information on record at [place] for the Encounter. Date/Time Encounter Type Encounter Description Reason Pro vider Source Jul 10, 2024 10:20 AM Outpatient Encounter TELEPHONE PRIMARY CARE IHE [...] 16, 2024 09:40 AM AMBULATORY - [place]ICINE [place] [facility] Jul 31, 2024 02:00 PM AMBULATORY - MEDICINE [place] [facility] Aug 16, 2024 11:00 AM AMBULATORY - MEDICINE [place] [facility] Aug 22, 2024 01:00 PM AMBULATORY - MEDICINE [place] [facility] Aug 26, 2024 03:30 PM AMBULATORY - MEDICINE [place] [facility] Oct 17, 2024 01:00 PM AMBULATORY - MEDICINE [place] [facility] Oct 24, 2024 10:30 AM AMBULATORY - PSYCHIATRY [place] [facility] Oct 24, 2024 10:30 AM AMBULATORY - [place]ATRY [place] [facility] Oct 29, 2024 08:30 AM [facility] Dec 12, 2024 10:30 AM AMBULATORY - MEDICINE [facility] Active, Pending, and Scheduled Orders This section includes a listing of several types of active, pending, and scheduled orders, including clinic medications orders, diagnostic test orders, procedure orders and consult orders; where the start date of the order is 45 days before the date of the Encounter or 45 days after the date of theEncounter. The data comes from all [place] treatment facilities. Test Date/Time Test Type Test Details Facility Name Jul 16, 2024 09:12 PM Consult Order [facility]UROLOG[facility] Cons Safety Coordinator's Choice [place] Lab Results: +/- 30 days of the [...] Range Comment Jul 25, 2024 11:45 AM [place] HEMOGLOBIN A1C PANEL Specimen Type: BLOOD Comment: [...] Jul 16, 2024 02:11 PM Reporting Lab: [facility] [address] [address] Performing Lab: [facility] [address] [address] HEMOGLOBIN A1C 8.5 H 4.0-5.6 Jul 25, 2024 11:45 AM [place] TSH Specimen Type: SERUM No comment entered. Ordering Provider: MARIIA ABBOTT Report Released Date/Time: Jul 16, 2024 02:11 PM Reporting Lab: [address] [place] [address] Performing Lab: [facility] [address] [address] TSH 2.04 u[IU]/mL 0.35-5.00 Jul 25, 2024 11:45 AM [place] LIPID PANEL FASTING Specimen Type: SERUM No comment entered. Ordering Provider: MARIIA ABBOTT Report Released Date/Time: Jul 16, 2024 02:11 PM Reporting Lab: [facility] [address] [address] Performing Lab: [address] [address] CHOLESTEROL 118 mg/dL TRIGLYCERIDE 77 mg/dL 0-150 LDL calculated 58 mg/dL 0-129 CHOL/HDL 2.6 HDL CHOLESTEROL 45 mg/dL 40-60 Jul 25, 2024 11:45 AM [place] LIVER FUNCTION Specimen Type: SERUM No comment entered. Ordering Provider: MARIIA ABBOTT Report Released Date/Time: Jul 16, 2024 02:11 PM Reporting Lab: [facility] [address] [address] Performing Lab: [facility] [address] [address] PROTEIN,TOTAL 6.8 g/dL 6.0-8.3 ALBUMIN 3.6 g/dL 3.5-5.0 ALKALINE PHOSPHATASE 71 U/L 40-150 AST 17 U/L 5-34 ALT 18 U/L BILIRUBIN, TOTAL 0.5 mg/dL 0.2-1.2 Jul 25, 2024 11:45 AM [place] BASIC METABOLIC PANEL (fasting) Specime n Type: SERUM No comment entered. Ordering Provider: MARIIA ABBOTT Report Released Date/Time: Jul 16, 2024 02:11 PM Reporting Lab: [facility] [address] [address] Performing Lab: [address] [address] UREA NITROGEN 39 mg/dL H 7-25 GLUCOSE 239 mg/dL H 65-100 SODIUM 140 mmol/L 135-145 POTASSIUM 4.4 mmol/L 3.5-5.0 CHLORIDE 104 mmol/L 100-110 CO2 25 meq/L 20-30 CREATININE, Serum 1.03 mg/dL 0.50-1.40 eGFR(CKD-EPI 2020) 75 mL/min >60 Jul 25, 2024 11:45 AM [place] CBC AND DIFF (AUTO) Specimen Type: BLOOD No comment entered. Ordering Provider: MARIIA ABBOTT Report Released Date/Time: Jul 16, 2024 02:11 PM Reporting Lab: [address] [address] Performing Lab: [address] [address] WBC 6.11 10*3/uL 4.50-11.00 RBC 4.86 10*6/uL [...] 2024 10:00 AM VA-TOBACCO NEVER USED [facility] Tobacco Use History This section includes a history of the smoking, or tobacco-related health factors, that were collected on or before the date of the Encounter. The data comes from the [place] facility where the Encounter took place. Date/Time Smoking Status/Tobacco Use Comment [place] Dec 12, 2022 03:10 PM VA-TOBACCO NEVER USED [facility] Encounter Notes: All associated encounter notes This section contains the clinical notes associated to the Encounter. Date/Time Encounter Note(s) Provider Source Jul 10, 2024 03:11 PM ADDENDUM: LOCAL TITLE: Addendum STANDARD TITLE: ADDENDUM DATE OF NOTE: JUL 10, 2024@15:11:36 ENTRY DATE: JUL 10, 2024@15:11:37 AUTHOR: ALCIRA LAYNE COSIGNER: URGENCY: STATUS: COMPLETED GILL DELUNA (-[id number]) Vital Sign for: 07/10/2024 (All times are EST; All weights are lbs) Primary DMP: VHA-HTN Comorbid(s): Summary Weight Sys BP Barnett BP HR Pain High 173.0 195 88 57 Low 172.8 123 52 43 Average 172.9 165 73 50 Date Time Wt Time Sys Barnett Time HR Time Pain ======== 07/10/2024 - 14:37 123/52 14:37 57 07/10/2024 - 11:07 180/73 11:07 43 07/10/2024 - 10:58 162/77 10:58 44 07/10/2024 10:46 172.8 10:45 195/88 10:45 54 07/10/2024 10:39 173.0 - - 07/10/2024 10:27 172.8 - - Source: [employer]; [employer] System Blood pressure improved after taking prescribed medication. /simone/ KAVITHA Albert, RN RPM-Home Telehealth Supervisor Furnace Process Signed: 07/10/2024 15:12 Receipt Acknowledged By: 07/10/2024 16:32 /es/ MARIIA BROUSSARD MD PHYSICIAN --- Original Document --- 07/10/24 HT NOTE: Called to assist with setup and troubleshooting of new blood pressure machine and scale which was successful. [place] resumed use of HT equipment. Hypertension noted, however, currently frustrated with device, did not sit and rest prior to assessment and has not taken medication yet this morning; reading marked as inaccurate and removed from record at this time. will take medication and reassess blood pressure after resting later today and will transmit to for review. Length of call: 40 minutes /simone/ KAVITHA Albert, RN RPM-Home Telehealth Supervisor Furnace Process Signed: 07/10/2024 10:55 ALCIRA LAYNE [place] [facility] Jul 10, 2024 10:20 AM CARE COORDINATION HOME TELEHEALTH NOTE: LOCAL TITLE: HT NOTE STANDARD TITLE: CARE COORDINATION HOME TELEHEALTH NOTE DATE OF NOTE: JUL 10, 2024@10:20 ENTRY DATE: JUL 10, 2024@10:20:27 AUTHOR: ALCIRA LAYNE EXP COSIGNER: URGENCY: STATUS: COMPLETED HT NOTE Has ADDENDA Called [place] to assist with setup and troubleshooting of new blood pressure machine and scale which was successful. [place] resumed use of HT equipment. Hypertension noted, however, [place] currently frustrated with device, did not sit and rest prior to assessment and has not taken medication yet this morning; reading marked as inaccurate and removed from record at this time. [place] will take medication and reassess blood pressure after resting later today and will transmit to for review. Length of call: 40 minutes /simone/ KAVITHA Albert, RN [facility]-Home Telehealth Supervisor Furnace Process Signed: 07/10/2024 10:55 07/10/2024 ADDENDUM STATUS: COMPLETED GILL DELUNA (-3033) Vital Sign for: 07/10/2024 (All times are EST; All weights are lbs) Primary DMP: VHA-HTN Comorbid(s): Summary Weight Sys BP Barnett BP HR Pain High 173.0 195 88 57 Low 172.8 123 52 43 Average 172.9 165 73 50 Date Time Wt Time Sys Barnett Time HR Time Pain ======== 07/10/2024 - 14:37 123/52 14:37 57 07/10/2024 - 11:07 180/73 11:07 43 07/10/2024 - 10:58 162/77 10:58 44 07/10/2024 10:46 172.8 10:45 195/88 10:45 54 07/10/2024 10:39 173.0 - - 07/10/2024 10:27 172.8 - - Source: [employer]; [employer] Pro System Blood pressure improved after taking prescribed medication. /simone/ KAVITHA Albert, RN RPM-Home Telehealth Supervisor Furnace Process Signed: 07/10/2024 15:12 Receipt Acknowledged By: * AWAITING SIGNATURE * MARIIA BROUSSARD [facility]
--- OUTSIDE RECORDS SUMMARY | 2024-08-21 23:33 | XMS_ITS | Encounter Summary ---
Author Name [facility] [place] Address [address] [place] [address] Care Team Providers Care 4 Year Olds Preschool Teacher Name Role Phone MARIIA BROUSSARD Primary [...] Patient's Relationship to Policy [employer] SCRIP[employer] ([id number]) PRESCRIPT ION [facility] Mar 11, 2018 [id number] MADAI DELUNA OTHER RELATIONSHIP [facility] PREFERRED PROVIDER ORGANIZAT ION (PPO) Jun 11, 2011 [id number] MADAI DELUNA PATIENT HUMANA [facility] (WNR) MEDICARE ADVANTAGE [facility] (WNR) Sep 11, 2022 [id number] GILL DELUNA PATIENT MEDICARE (WNR) MEDICARE (M) PART A January 10, 2012 PART A [id number] GILL DELUNA PATIENT MEDICARE ([place]) MEDICARE (M) PART B January 10, 2012 PART B [id number] [phone] GILL DELUNA PATIENT MEDICARE ([place]NR) MEDICARE (M) PART A January 10, 2012 PART A [id number] [phone] GILL DELUNA PATIENT UNICARE PREFERRED PROVIDER ORGANIZAT ION (PPO) [place] [facility]* * Mar 11, 2015 [id number] MADAI DELUNA SPOUSE [facility] (WNR) MEDICARE ADVANTAGE [facility] (WNR) Mar 11, 2021 [id number] GILL DELUNA PATIENT [facility]ARE [facility] (WNR) MEDICARE ADVANTAGE [facility] (WNR) Sep 11, 2021 [id number] GILL DELUNA PATIENT Selected Encounter This section includes the information on record at [place] for the Encounter. Date/Time Encounter Type Encounter Description Reason Provider Source Jul 12, 2024 12:36 PM HC PRO PHONE CALL 5-10 MIN TELEPHONE/MEDICIN E ICD-10-CM I11.9 Hypertensive heart disease without heart failure ALCIRA LAYNE [place] Encounter Template Text not used by [place] Assessments - Encounter Diagnoses This section includes the primary and secondary diagnoses documented for the Encounter. Date/Time Primary/Secondary Diagnosis Diagnosis Name Provider Source Jul 12, 2024 12:36 PM PRIMARY Hypertensive heart disease without heart failure ALCIRA LAYNE [place] [facility] Plan of Treatment: Future Appointments (+ 6 [...] - MEDICINE [place] [facility] Jul 31, 2024 02:00 PM AMBULATORY - MEDICINE [place] [facility] Aug 16, 2024 11:00 AM AMBULATORY - [place]ICINE [place] [facility] Aug 22, 2024 01:00 PM AMBULATORY - MEDICINE [place] [facility] Aug 26, 2024 03:30 PM AMBULATORY - MEDICINE [place] [facility] Oct 17, 2024 01:00 PM AMBULATORY - MEDICINE [place] [facility] Oct 24, 2024 10:30 AM AMBULATORY - PSYCHIATRY [place] [facility] [place] [facility] Oct 24, 2024 10:30 AM AMBULATORY [place] [facility] Oct 29, 2024 08:30 AM AMBULATORY - MEDICINE [facility] [facility] Dec 12, 2024 10:30 AM AMBULATORY - MEDICINE [place] [facility] Active, Pending, and Scheduled Orders This section [...] 2024 09:12 PM Consult Order [facility]-UROLOGY Cons Pin Pusher's Choice [place] Lab Results: +/- 30 days of the [...] Range Comment Jul 25, 2024 11:45 AM [place] HEMOGLOBIN A1C PANEL Specimen Type: BLOOD Comment: [...] Jul 16, 2024 02:11 PM Reporting Lab: [address] [address] Performing Lab: [address] [place] [address] HEMOGLOBIN A1C 8.5 H 4.0-5.6 Jul 25, 2024 11:45 AM [place] TSH Specimen Type: SERUM No comment entered. Ordering Provider: MARIIA ABBOTT Report Released Date/Time: Jul 16, 2024 02:11 PM [facility] [address] [address] Per[facility] [address] [address] TSH 2.04 u[IU]/mL 0.35-5.00 Jul 25, 2024 11:45 AM [place] LIPID PANEL FASTING Specimen Type: SERUM No comment entered. Ordering Provider: MARIIA ABBOTT Report Released Date/Time: Jul 16, 2024 02:11 PM Reporting Lab: [address] [address] [facility] [address] [address] CHOLESTEROL 118 mg/dL TRIGLYCERIDE 77 mg/dL 0-150 LDL calculated 58 mg/dL 0-129 CHOL/HDL 2.6 HDL CHOLESTEROL 45 mg/dL 40-60 Jul 25, 2024 11:45 AM [place] LIVER FUNCTION Specimen Type: SERUM No comment entered. Ordering Provider: MARIIA ABBOTT Report Released Date/Time: Jul 16, 2024 02:11 PM Reporting Lab: [address] [address] Per[facility] [address] [address] PROTEIN,TOTAL 6.8 g/dL 6.0-8.3 ALBUMIN 3.6 g/dL 3.5-5.0 ALKALINE PHOSPHATASE 71 U/L 40-150 AST 17 U/L 5-34 ALT 18 U/L BILIRUBIN, TOTAL 0.5 mg/dL 0.2-1.2 Jul 25, 2024 11:45 AM [place] BASIC METABOLIC PANEL (fasting) Specime n Type: SERUM No comment entered. Ordering Provider: MARIIA ABBOTT Report Released Date/Time: Jul 16, 2024 02:11 PM Reporting Lab: [address] [address] Performing Lab: [address] [address] UREA NITROGEN 39 mg/dL H 7-25 GLUCOSE 239 mg/dL H 65-100 SODIUM 140 mmol/L 135-145 POTASSIUM 4.4 mmol/L 3.5-5.0 CHLORIDE 104 mmol/L 100-110 CO2 25 meq/L 20-30 CREATININE, Serum 1.03 mg/dL 0.50-1.40 eGFR(CKD-EPI 2020) 75 mL/min >60 Jul 25, 2024 11:45 AM [place] CBC AND DIFF (AUTO) Specimen Type: BLOOD No comment entered. Ordering Provider: MARIIA ABBOTT Report Released Date/Time: Jul 16, 2024 02:11 PM Reporting Lab: [address] [address] Performing Lab: [address] [address] WBC 6.11 10*3/uL 4.50-11.00 RBC 4.86 10*6/uL [...] Encounter Note(s) Provider Source Jul 12, 2024 12:36 PM CARE COORDINATION HOME TELEHEALTH FOLLOW-UP NOTE: LOCAL TITLE: HT INTERVENTION NOTE STANDARD TITLE: CARE COORDINATION HOME TELEHEALTH FOLLOW-UP NOTE DATE OF NOTE: JUL 12, 2024@12:36 ENTRY DATE: JUL 12, 2024@12:36:37 AUTHOR: ALCIRA LAYNE EXP COSIGNER: URGENCY: STATUS: COMPLETED Maybeury is actively enrolled in the Home Telehealth program. Review of data shows the following out of range responses: GILL DELUNA (-9499) Vital Sign for: 06/13/2024 - 07/12/2024 (All times are EST; All weights are lbs) Primary DMP: VHA-HTN Comorbid(s): Summary Weight Sys BP Barnett BP HR Pain High 173.6 195 98 100 Low 166.4 95 52 43 Average 171.5 146 76 78 Date Time Wt Time Sys Barnett Time HR Time Pain 07/12/2024 - 05:43 160/74 05:43 48 07/12/2024 01:06 172.4 01:05 126/74 01:05 84 07/11/2024 22:59 173.0 22:58 129/82 22:58 100 07/10/2024 - 20:47 155/74 20:47 79 07/10/2024 - 14:37 123/52 14:37 57 07/10/2024 - 11:07 180/73 11:07 43 07/10/2024 - 10:58 162/77 10:58 44 07/10/2024 10:46 172.8 10:45 195/88 10:45 54 07/10/2024 10:39 173.0 - - 07/10/2024 10:27 172.8 - - 06/28/2024 14:45 172.6 14:44 143/75 14:44 49 06/27/2024 23:07 171.6 23:07 163/84 23:07 88 06/26/2024 - 14:05 95/54 14:05 89 06/26/2024 [...] 06/14/2024 09:55 169.0 09:54 144/74 09:54 81 Source: [employer]; [employer] Assessment: Hypertension Called Maybeury (Maybeury identified by full name and date of ) to review data and assess for any symptoms, changes, questions or concerns. Maybeury reports he is feeling well and is happy to see his blood pressure is within normal limits more frequently. denies headaches, dizziness, lightheadedness, blurred/changed vision, flushing of face, chest pain, shortness of breath, palpitations, racing of heart, unusual fatigue or weakness. reports compliance with medication regimen, denies any changes. reports blood pressure this morning at 0543 was prior to taking scheduled medication. reports he continues with low sodium diet, does his best with hydrating with water throughout the day and walks for exercise. Intervention(s)/Plan: Reviewed/Educated of the following: Signs/symptoms of hypertension, when and where to seek help (call provider vs. ). Normal blood pressure: less than 120/80 Target goal for blood pressure: less than 130/80 Assess your blood pressure approximately two hours after taking your medication and as needed. Rest for at least 5-10 minutes prior to assessing your blood pressure. Remain still, try to remain calm and do not talk, eat or drink while using the monitor. Instructed to continue to take all medications as ordered. Encouraged to continue to maintain low sodium diet (less than 2000mg per day) and avoiding caffeine. Hydrate well with water throughout the day (at least 64 ounces daily). Complete health check daily and as needed. Transmit all data to for review/monitoring. verbalized understanding of education and denied questions. Agrees to sit and rest for 5-10 minutes, reassess blood pressure and transmit data to for review. Provider: This information is sent for your review and any further recommendations in regards to the Home Telehealth Plan of Care. Thank you! 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 TYPE OF ENCOUNTER: Telephone Length of call: 5-10 minutes WHOLE HE[employer] COACHING SKILLS Coaching or Motivational Interviewing skills used. /simone/ KAVITHA Albert, RN RPM-Home Telehealth Gps Navigation Installer Signed: 07/12/2024 12:43 Receipt Acknowledged By: 07/12/2024 14:50 /es/ MARIIA BROUSSARD MD PHYSICIAN ALCIRA LAYNE [facility]
--- OUTSIDE RECORDS SUMMARY | 2024-08-21 23:34 | XMS_ITS | Encounter Summary ---
Author Name [facility] [place] Address [address] [place] [address] Care Team Providers Care Auto Bumper Mechanic Name Role Phone MARIIA BROUSSARD Primary Care [...] Patient's Relationship to Policy Mancera EXPRESS SCRIPTS ([id number]) PRESCRIPT ION [facility] Mar 11, 2018 [id number] MADAI DELUNA OTHER RELATIONSHIP [facility] PREFERRED PROVIDER ORGANIZAT ION (PPO) Jun 11, 2011 [id number] [phone] MADAI DELUNA PATIENT HUMANA [facility] (WNR) MEDICARE ADVANTAGE [facility] (WNR) Sep 11, 2022 [id number] [phone] [place] PATIENT MEDICARE (WNR) MEDICARE (M) PART A January 10, 2012 PART A [id number] [phone] [place]IE [place] PATIENT MEDICARE (WNR) MEDICARE (M) PART B January 10, 2012 PART B [id number] GILL DELUNA PATIENT MEDICARE (WNR) MEDICARE (M) PART A January 10, 2012 PART A [id number] GILL DELUNA PATIENT UNICARE PREFERRED PROVIDER ORGANIZAT ION (PPO) [place] RE STATE INDE* * Mar 11, 2015 [id number] MADAI DELUNA [facility] (WNR) MEDICARE ADVANTAGE [facility] (WNR) Mar 11, 2021 [id number] GILL DELUNA PATIENT WELLCARE [facility] (WNR) MEDICARE ADVANTAGE [facility] (WNR) Sep 11, 2021 [id number] GILL DELUNA PATIENT Selected Encounter This section includes the information on record at [place] for the Encounter. Date/Time Encounter Type Encounter Description Reason Pro vider Source Jul 16, 2024 02:09 PM Outpatient Encounter PRIMARY CARE/MEDICINE IHE Encounter [...] Appointment Type Appointme nt Facility Name Jul 31, 2024 02:00 PM AMBULATORY - MEDICINE [place] [facility] [place] [facility] Aug 16, 2024 11:00 AM AMBULATORY - MEDICINE [place] [facility] [facility] Aug 22, 2024 01:00 PM AMBULATORY - MEDICINE [place] [facility] [place] [facility] Aug 26, 2024 03:30 PM AMBULATORY - MEDICINE [place] [facility] [place] [facility] Oct 17, 2024 01:00 PM AMBULATORY - MEDICINE [place] [facility] [place] [facility] Oct 24, 2024 10:30 AM AMBULATORY - PSYCHIATRY [place] [facility] [place] [facility] Oct 24, 2024 10:30 AM AMBULATORY [place] [facility] Oct 29, 2024 08:30 AM AMBULATORY - MEDICINE [facility] Dec 12, 2024 10:30 AM AMBULATORY - MEDICINE [facility] Active, Pending, and Scheduled Orders This section [...] Jul 16, 2024 09:12 PM Consult Order [facility] Cons Automatic Pad Making Machine Operator's Choice [facility] Lab Results: +/- 30 days of the [...] Range Comment Jul 25, 2024 11:45 AM [facility] TSH Specimen Type: SERUM No comment entered. Ordering Provider: MARIIA ABBOTT Report Released Date/Time: Jul 16, 2024 02:11 PM Reporting Lab: [address] [address] Performing Lab: [address] [address] TSH 2.04 u[IU]/mL 0.35-5.00 Jul 25, 2024 11:45 AM [facility] HEMOGLOBIN A1C PANEL Specimen Type: BLOOD Comment: [...] Jul 16, 2024 02:11 PM Reporting Lab: [address] [address] Performing Lab: [facility] [address] [address] HEMOGLOBIN A1C 8.5 H 4.0-5.6 Jul 25, 2024 11:45 AM [facility] LIPID PANEL FASTING Specimen Type: SERUM No comment entered. Ordering Provider: MARIIA ABBOTT Report Released Date/Time: Jul 16, 2024 02:11 PM Reporting Lab: [address] [address] Performing Lab: [address] [address] CHOLESTEROL 118 mg/dL TRIGLYCERIDE 77 mg/dL 0-150 LDL calculated 58 mg/dL 0-129 CHOL/HDL 2.6 HDL CHOLESTEROL 45 mg/dL 40-60 Jul 25, 2024 11:45 AM [facility] BASIC METABOLIC PANEL (fasting) Specime n Type: SERUM No comment entered. Ordering Provider: MARIIA ABBOTT Report Released Date/Time: Jul 16, 2024 02:11 PM Reporting Lab: [address] [address] Performing Lab: [address] [address] UREA NITROGEN 39 mg/dL H 7-25 GLUCOSE 239 mg/dL H 65-100 SODIUM 140 mmol/L 135-145 POTASSIUM 4.4 mmol/L 3.5-5.0 CHLORIDE 104 mmol/L 100-110 CO2 25 meq/L 20-30 CREATININE, Serum 1.03 mg/dL 0.50-1.40 eGFR(CKD-EPI 2020) 75 mL/min >60 Jul 25, 2024 11:45 AM [facility] LIVER FUNCTION Specimen Type: SERUM No comment entered. Ordering Provider: MARIIA ABBOTT Report Released Date/Time: Jul 16, 2024 02:11 PM Reporting Lab: [address] [address] Performing Lab: [address] [address] PROTEIN,TOTAL 6.8 g/dL 6.0-8.3 ALBUMIN 3.6 g/dL 3.5-5.0 ALKALINE PHOSPHATASE 71 U/L 40-150 AST 17 U/L 5-34 ALT 18 U/L BILIRUBIN, TOTAL 0.5 mg/dL 0.2-1.2 Jul 25, 2024 11:45 AM [facility] CBC AND DIFF (AUTO) Specimen Type: BLOOD No comment entered. Ordering Provider: MARIIA ABBOTT Report Released Date/Time: Jul 16, 2024 02:11 PM Reporting Lab: [facility] [address] [address] Performing Lab: [facility] [address] [address] WBC 6.11 10*3/uL 4.50-11.00 RBC 4.86 10*6/uL [...] 03, 2024 10:00 AM VA-TOBACCO NEVER USED [facility] Tobacco Use History This section includes a history of the smoking, or tobacco-related health factors, that were collected on or before the date of the Encounter. The data comes from the [place] facility where the Encounter took place. Date/Time Smoking Status/Tobacco Use Comment F acility Dec 12, 2022 03:10 PM VA-TOBACCO NEVER USED [facility] Encounter Notes: All associated encounter notes This section contains the clinical notes associated to the Encounter. Date/Time Encounter Note(s) Provider Source Aug 01, 2024 04:11 PM ADDENDUM: LOCAL TITLE: Addendum STANDARD TITLE: ADDENDUM DATE OF NOTE: AUG 01, 2024@16:11:58 ENTRY DATE: AUG 01, 2024@16:11:58 AUTHOR: NEGRO CLARKE EXP COSIGNER: URGENCY: STATUS: COMPLETED MSA received secure message from the . Preop appt has been made with [facility] 10 08/22/24 @ 1300. /es/ NEGRO CLARKE AMSLyric Signed: 08/01/2024 16:13 Receipt Acknowledged By: 08/02/2024 15:14 /es/ ABDI ALMARAZ LPN LPN 08/04/2024 23:11 /es/ ZAID ODONNELL RN REGISTERED NURSE --- Original Document --- 07/16/24 ADMINISTRATIVE NOTE: Received a pre-op request from the [facility] stating is scheduled for chelation left eye on 08/28/24 and right eye on 09/25/23. They states they only need H & P, and recent labs (glucose) Luther is up-coming appt with PCP on 07/30/24. Spoke with . He agrees to use this meng for his pre-op. /essence ODONNELL RN REGISTERED NURSE Signed: 07/16/2024 14:26 08/01/2024 ADDENDUM STATUS: COMPLETED MARGAUX spoke with [facility] [phone]. Wanted to keep them informed that Luther's Preop appt was cancelled, and unable to reach the Luther. Phoned the twice, and both times left voicemail. /simone/ NEGRO DAMICO Signed: 08/01/2024 09:46 Receipt Acknowledged By: 08/02/2024 15:13 /essence ALMARAZ LPN LPN 08/04/2024 23:10 /essence ODONNELL RN REGISTERED NURSE NEGRO CLARKE Aug 01, 2024 09:43 AM ADDENDUM: LOCAL TITLE: Addendum STANDARD TITLE: ADDENDUM DATE OF NOTE: AUG 01, 2024@09:43:27 ENTRY DATE: AUG 01, 2024@09:43:28 AUTHOR: NEGRO CLARKE COSIGNER: URGENCY: STATUS: COMPLETED MARGAUX spoke with [facility] [phone]. Wanted to keep them informed that 's Preop appt was cancelled, and unable to reach the Luther. Phoned the Luther twice, and both times left voicemail. /simone/ NEGRO DAMICO Signed: 08/01/2024 09:46 Receipt Acknowledged By: 08/02/2024 15:13 /essence ALMARAZ LPN LPN 08/04/2024 23:10 /essence ODONNELL RN REGISTERED NURSE --- Original Document --- 07/16/24 ADMINISTRATIVE NOTE: Received a pre-op request from the [facility] stating is scheduled for chelation left eye on 08/28/24 and right eye on 09/25/23. They states they only need H & P, and recent labs (glucose) Luther is up-coming appt with PCP on 07/30/24. Spoke with . He agrees to use this meng for his pre-op. /es/ ZAID ODONNELL RN REGISTERED NURSE Signed: 07/16/2024 14:26 08/01/2024 ADDENDUM STATUS: COMPLETED MSA received secure message from the . Preop appt has been made with [facility] 10 08/22/24 @ 1300. /simone/ NEGRO DAMICO Signed: 08/01/2024 16:13 Receipt Acknowledged By: 08/02/2024 15:14 /es/ ABDI ALMARAZ LPN LPN * AWAITING SIGNATURE * ZAID ODONNELL [place] Jul 16, 2024 02:16 PM ADMINISTRATIVE NOT E: LOCAL TITLE: ADMINISTRATIVE NOTE STANDARD TITLE: ADMINISTRATIVE NOTE DATE OF NOTE: JUL 16, 2024@14:16 ENTRY DATE: JUL 16, 2024@14:17:24 AUTHOR: ZAID ODONNELL COSIGNER: URGENCY: STATUS: COMPLETED ADMINISTRATIVE NOTE Has ADDENDA Received a pre-op request from the [facility] stating is scheduled for chelation left eye on 08/28/24 and right eye on 09/25/23. They states they only need H & P, and recent labs (glucose) is up-coming appt with PCP on 07/30/24. Spoke with . He agrees to use this meng for his pre-op. /es/ ZAID ODONNELL RN REGISTERED NURSE Signed: 07/16/2024 14:26 08/01/2024 ADDENDUM STATUS: COMPLETED MARGAUX spoke with [facility] [phone]. Wanted to keep them informed that Luther's Preop appt was cancelled, and unable to reach the . Phoned the Luther twice, and both times left voicemail. /simone/ NEGRO DAMICO Signed: 08/01/2024 09:46 Receipt Acknowledged By: * AWAITING SIGNATURE * ABDI ALMARAZ * AWAITING SIGNATURE * ZAID ODONNELL 08/01/2024 ADDENDUM STATUS: COMPLETED MSA received secure message from the . Preop appt has been made with [facility] 10 08/22/24 @ 1300. /simone/ NEGRO DAMICO Signed: 08/01/2024 16:13 Receipt Acknowledged By: * AWAITING SIGNATURE * ABDI ALMARAZ * AWAITING SIGNATURE * ZAID ODONNELL [place]
--- OUTSIDE RECORDS SUMMARY | 2024-08-21 23:34 | XMS_ITS | Encounter Summary ---
Author Name [facility] [place] Address [address] [place] [address] Care Team Providers Care Time Study Analyst Name Role Phone MARIIA BROUSSARD Primary Care [...] Patient's Relationship to Policy Mancera EXPRESS SCRIPTS ([id number]) PRESCRIPT ION [facility] Mar 11, 2018 [id number] MADAI DELUNA OTHER RELATIONSHIP [facility] PREFERRED PROVIDER ORGANIZAT ION (PPO) Jun 11, 2011 [id number] MADAI DELUNA PATIENT HUMANA [facility] (WNR) MEDICARE ADVANTAGE [facility] (WNR) Sep 11, 2022 [id number] [phone] GILL DELUNA PATIENT MEDICARE (WNR) MEDICARE (M) PART A January 10, 2012 PART A [id number] GILL DELUNA PATIENT MEDICARE (WNR) MEDICARE (M) PART B January 10, 2012 PART B [id number] GILL DELUNA PATIENT MEDICARE (WNR) MEDICARE (M) PART A January 10, 2012 PART A [id number] [phone] GILL DELUNA PATIENT UNICARE PREFERRED PROVIDER ORGANIZAT ION (PPO) [place] RE STATE INDE* * Mar 11, 2015 [id number] MADAI DELUNA SPOUSE [facility] (WNR) MEDICARE ADVANTAGE [facility] (WNR) Mar 11, 2021 [id number] GILL DELUNA PATIENT [facility] (WNR) MEDICARE ADVANTAGE [facility] (WNR) Sep 11, 2021 [id number] [phone] GILL DELUNA PATIENT Selected Encounter This section includes the information on record at [place] for the Encounter. Date/Time Encounter Type Encounter Description Reason Pro vider Source Jul 24, 2024 10:06 AM Outpatient Encounter ADMIN PAT ACTIVTIES (MASNONCT) [...] 31, 2024 02:00 PM AMBULATORY - [place]ICINE [place] [place] [facility] Aug 16, 2024 11:00 AM AMBULATORY - MEDICINE [place] [facility] [place] [facility] Aug 22, 2024 01:00 PM AMBULATORY - MEDICINE [place] [facility] [facility] Aug 26, 2024 03:30 PM AMBULATORY - MEDICINE [place] [facility] [facility] Oct 17, 2024 01:00 PM AMBULATORY - MEDICINE [place] [place] [facility] Oct 24, 2024 10:30 AM AMBULATORY - PSYCHIATRY [place] [facility] [facility] Oct 24, 2024 10:30 AM AMBULATORY - [place]ATRY [place] [facility] Oct 29, 2024 08:30 AM AMBULATORY - MEDICINE [place] Dec 12, 2024 10:30 AM AMBULATORY - MEDICINE [facility] Active, Pending, and Scheduled Orders This section includes a listing of several types of active, pending, and scheduled orders, including clinic medications orders, diagnostic test orders, procedure orders and consult orders; where the start date of the order is 45 days before the date of the Encounter or 45 days after the date of theEncounter. The data comes from all [place] treatment facilities. Test Date/Time Test Type Test Details Facility Name Jul 16, 2024 09:12 PM Consult Order [facility] Cons Executive Community Planning's Choice [place] Lab Results: +/- 30 days of the [...] Range Comment Jul 25, 2024 11:45 AM [place] HEMOGLOBIN A1C PANEL Specimen Type: BLOOD Comment: [...] 16, 2024 02:11 PM Reporting Lab: [facility] [address] [facility] [address] Performing Lab: [facility] [address] [facility] [address] HEMOGLOBIN A1C 8.5 H 4.0-5.6 Jul 25, 2024 11:45 AM [place] TSH Specimen Type: SERUM No comment entered. Ordering Provider: MARIIA ABBOTT Report Released Date/Time: Jul 16, 2024 02:11 PM Reporting Lab: [facility] [address] [facility] [address] Performing Lab: [facility] [address] [address] TSH 2.04 u[IU]/mL 0.35-5.00 Jul 25, 2024 11:45 AM [place] LIPID PANEL FASTING Specimen Type: SERUM No comment entered. Ordering Provider: MARIIA ABBOTT Report Released Date/Time: Jul 16, 2024 02:11 PM Reporting Lab: [facility] [address] [address] Performing Lab: [address] [address] CHOLESTEROL 118 mg/dL TRIGLYCERIDE 77 mg/dL 0-150 LDL calculated 58 mg/dL 0-129 CHOL/HDL 2.6 HDL CHOLESTEROL 45 mg/dL 40-60 Jul 25, 2024 11:45 AM [place] LIVER FUNCTION Specimen Type: SERUM No comment entered. Ordering Provider: MARIIA ABBOTT Report Released Date/Time: Jul 16, 2024 02:11 PM Reporting Lab: [facility] [address] [address] Performing Lab: [address] [address] PROTEIN,TOTAL 6.8 g/dL 6.0-8.3 ALBUMIN 3.6 g/dL 3.5-5.0 ALKALINE PHOSPHATASE 71 U/L 40-150 AST 17 U/L 5-34 ALT 18 U/L BILIRUBIN, TOTAL 0.5 mg/dL 0.2-1.2 Jul 25, 2024 11:45 AM [place] BASIC METABOLIC PANEL (fasting) Specime n Type: SERUM No comment entered. Ordering Provider: MARIIA ABBOTT Report Released Date/Time: Jul 16, 2024 02:11 PM Reporting Lab: [facility] [address] [address] Performing Lab: [address] [address] UREA NITROGEN 39 mg/dL H 7-25 GLUCOSE 239 mg/dL H 65-100 SODIUM 140 mmol/L 135-145 POTASSIUM 4.4 mmol/L 3.5-5.0 CHLORIDE 104 mmol/L 100-110 CO2 25 meq/L 20-30 CREATININE, Serum 1.03 mg/dL 0.50-1.40 eGFR(CKD-EPI 2020) 75 mL/min >60 Jul 25, 2024 11:45 AM [place] CBC AND DIFF (AUTO) Specimen Type: BLOOD No comment entered. Ordering Provider: MARIIA ABBOTT Report Released Date/Time: Jul 16, 2024 02:11 PM Reporting Lab: [facility] [address] [address] Performing Lab: [facility] [address] [address] WBC 6.11 10*3/uL 4.50-11.00 RBC 4.86 10*6/uL [...] the Encounter. The data comes from the [place] facility where the Encounter took place. Date/Time Smoking Status/Tobacco Use Comment F acmorgan Dec 12, 2022 03:10 PM VA-TOBACCO NEVER USED [facility] Encounter Notes: All associated encounter notes This section contains the clinical notes associated to the Encounter. Date/Time Encounter Note(s) Provider Source Jul 24, 2024 10:06 AM CARE COORDINATION HOME TELEHEALTH NOTE: LOCAL TITLE: HT NOTE STANDARD TITLE: CARE COORDINATION HOME TELEHEALTH NOTE DATE OF NOTE: JUL 24, 2024@10:06 ENTRY DATE: JUL 24, 2024@10:06:54 AUTHOR: ARUNA SANCHES COSIGNER: URGENCY: STATUS: COMPLETED HT NOTE Has ADDENDA Type of Telephone Encounter: Health Feather Cutting Machine Feeder called /caregiver Tiline is actively enrolled with the Home Telehealth Program and is being monitored with an in-home messaging device. The following identifiers were used to verify this patient: Phone number, name, and SSN. Problem/Issue Reported: has not used his Home Telehealth equipment for the past 5 days Intervention: Spoke with Tiline who will resume use Instruction/Education: Continue to monitor Follow-up: (Call time 5-10 min) will continue to be monitor by Metal Bonding Crib Attendant. /simone/ ARUNA SANCHES TELEHEALTH LOW RAW SUGAR CUTTER Signed: 07/24/2024 10:07 07/26/2024 ADDENDUM STATUS: COMPLETED resumed use of HT equipment 07/25/2024. /simone/ KAVITHA Albert, RN RPM-Home Telehealth Metal Bonding Crib Attendant Signed: 07/26/2024 07:16 ARUNA SANCHES [facility]
--- OUTSIDE RECORDS SUMMARY | 2024-08-21 23:34 | XMS_ITS ---
Author Name [facility] [place] Address [address] [place] [address] Care Team Providers Care Organizational Development Consultant Name Role Phone MARIIA BROUSSARD Primary Care [...] Patient's Relationship to Policy [employer] S[employer]IPTS ([id number]) PRESCRIPT ION [facility] Mar 11, 2018 [id number] MADAI DELUNA OTHER RELATIONSHIP [facility] PREFERRED PROVIDER ORGANIZAT ION (PPO) Jun 11, 2011 [id number] [phone] MADAI DELUNA PATIENT [employer] (WNR) MEDICARE ADVANTAGE [employer] (WNR) Sep 11, 2022 [id number] [phone] [place] PATIENT MEDICARE (WNR) MEDICARE (M) PART A January 10, 2012 PART A [id number] MIKIE GILL PATIENT MEDICARE (WNR) MEDICARE (M) PART B January 10, 2012 PART B [id number] GILL DELUNA PATIENT MEDICARE (WNR) MEDICARE (M) PART A January 10, 2012 PART A [id number] [phone] GILL DELUNA PATIENT UNICARE PREFERRED PROVIDER ORGANIZAT ION (PPO) [place] RE STATE INDE* * Mar 11, 2015 [id number] MADAI DELUNA [facility] (WNR) MEDICARE ADVANTAGE [employer] (WNR) Mar 11, 2021 [id number] GILL DELUNA PATIENT WELLCARE [employer] (WNR) MEDICARE ADVANTAGE [employer] (WNR) Sep 11, 2021 [id number] GILL DELUNA PATIENT Selected Encounter This section includes the information on record at [place] for the Encounter. Date/Time Encounter Type Encounter Description Reason Provider Source Jul 30, 2024 07:27 AM Outpatient Encounter HT NON-VIDEO MONITORING ICD-10-CM I11.9 Hypertensive heart disease without heart failure ALCIRA LAYNE [place] Encounter Template Text not used by [place] Assessments - Encounter Diagnoses This section includes the primary and secondary diagnoses documented for the Encounter. Date/Time Primary/Secondary Diagnosis Diagnosis Name Provider Source Jul 30, 2024 07:32 AM PRIMARY Hypertensive heart disease without heart failure [facility]CIRA LAYNE [facility] [place] [facility] Plan of Treatment: Future [...] - MEDICINE PA C NTRL [place] [facility] Aug 16, 2024 11:00 AM AMBULATORY - MEDICINE [place] C [place] [facility] Aug 22, 2024 01:00 PM AMBULATORY - MEDICINE PA C [place] [facility] Aug 26, 2024 03:30 PM AMBULATORY - MEDICINE [place] C [place] [facility] Oct 17, 2024 01:00 PM AMBULATORY - MEDICINE [place] C [place]TRL [place] [facility] Oct 24, 2024 10:30 AM AMBULATORY - PSYCHIATRY [place] CNTRL [place] [facility] Oct 24, 2024 10:30 AM AMBULATORY - PS[place]CHIATRY [place] [facility] Oct 29, 2024 08:30 AM AMBULATORY - MEDICINE [place] [facility] Dec 12, 2024 10:30 AM AMBULATORY - MEDICINE [place] [facility] Active, Pending, and Scheduled Orders This [...] Jul 16, 2024 09:12 PM Consult Order [facility] Cons Procurement Officer's Choice [place] Lab Results: +/- 30 days of the [...] Range Comment Jul 25, 2024 11:45 AM [place] HEMOGLOBIN A1C PANEL Specimen Type: BLOOD Comment: [...] Jul 16, 2024 02:11 PM Reporting [facility]: [facility] [address] [facility] [address] Performing Lab: [address] [address] HEMOGLOBIN A1C 8.5 H 4.0-5.6 Jul 25, 2024 11:45 AM [place] TSH Specimen Type: SERUM No comment entered. Ordering Provider: MARIIA ABBOTT Report Released Date/Time: Jul 16, 2024 02:11 PM Reporting Lab: [facility] [address] [address] Performing Lab: [facility] [address] [address] TSH 2.04 u[IU]/mL 0.35-5.00 Jul 25, 2024 11:45 AM [place] LIPID PANEL FASTING Specimen Type: SERUM No comment entered. Ordering Provider: MARIIA ABBOTT Report Released Date/Time: Jul 16, 2024 02:11 PM Reporting Lab: [facility] [address] [address] Performing Lab: [facility] [address] [address] CHOLESTEROL 118 mg/dL TRIGLYCERIDE 77 mg/dL 0-150 LDL calculated 58 mg/dL 0-129 CHOL/HDL 2.6 HDL CHOLESTEROL 45 mg/dL 40-60 Jul 25, 2024 11:45 AM [place] LIVER FUNCTION Specimen Type: SERUM No comment entered. Ordering Provider: MARIIA ABBOTT Report Released Date/Time: Jul 16, 2024 02:11 PM Reporting Lab: [facility] TRN [address] [address] Performing Lab: [facility] [address] PROTEIN,TOTAL 6.8 g/dL 6.0-8.3 ALBUMIN 3.6 g/dL 3.5-5.0 ALKALINE PHOSPHATASE 71 U/L 40-150 AST 17 U/L 5-34 ALT 18 U/L BILIRUBIN, TOTAL 0.5 mg/dL 0.2-1.2 Jul 25, 2024 11:45 AM [place] BASIC METABOLIC PANEL (fasting) Specime n Type: SERUM No comment entered. Ordering Provider: MARIIA ABBOTT Report Released Date/Time: Jul 16, 2024 02:11 PM Reporting Lab: [address] [address] Performing Lab: [address] [address] UREA NITROGEN 39 mg/dL H 7-25 GLUCOSE 239 mg/dL H 65-100 SODIUM 140 mmol/L 135-145 POTASSIUM 4.4 mmol/L 3.5-5.0 CHLORIDE 104 mmol/L 100-110 CO2 25 meq/L 20-30 CREATININE, Serum 1.03 mg/dL 0.50-1.40 eGFR(CKD-EPI 2020) 75 mL/min >60 Jul 25, 2024 11:45 AM [place] CBC AND DIFF (AUTO) Specimen Type: BLOOD No comment entered. Ordering Provider: MARIIA ABBOTT Report Released Date/Time: Jul 16, 2024 02:11 PM Reporting Lab: [address] [address] Performing Lab: [address] [address] WBC 6.11 10*3/uL 4.50-11.00 RBC 4.86 10*6/uL [...] Facil ity May 03, 2024 10:00 AM PA-TOBACCO NEVER USED [place] [facility] Tobacco Use History This section includes a history of the smoking, or tobacco-related health factors, that were collected on or before the date of the Encounter. The data comes from the [place] facility where the Encounter took place. Date/Time Smoking Status/Tobacco Use Comment F acility Dec 12, 2022 03:10 PM PA-TOBACCO NEVER USED [place] [facility] Encounter Notes: All associated encounter notes This section contains the clinical notes associated to the Encounter. Date/Time Encounter Note(s) Provider Source Jul 30, 2024 07:28 AM CARE COORDINATION HOME TELEHEALTH SUMMARIZATION NOTE: LOCAL TITLE: MONTHLY MONITOR NOTE STANDARD TITLE: CARE COORDINATION HOME TELEHEALTH SUMMARIZATION DATE OF NOTE: JUL 30, 2024@07:28 ENTRY DATE: JUL 30, 2024@07:28:34 AUTHOR: ALCIRA LAYNE EXP COSIGNER: URGENCY: STATUS: COMPLETED The [facility] is enrolled in the Home Telehealth (HT) program and continues to be monitored via HT technology. The data sent by the [facility] is reviewed and analyzed by the staff, who provide ongoing case management and health education while communicating and collaborating with the health care team as appropriate. This note covers a total of 30 minutes for the month monitored. Month monitored: July 2024 Dx: Hypertension /es/ KAVITHA Albert, RN [facility]-Home Telehealth Tube Machine Operator Signed: 07/30/2024 07:32 ALCIRA LAYNE [facility]
--- OUTSIDE RECORDS SUMMARY | 2024-08-21 23:34 | XMS_ITS | Encounter Summary ---
Author Name [place] Address [address] [place] [address] Care Team Providers Care Nps Name Role Phone MARIIA BROUSSARD Primary Care [...] Patient's Relationship to Policy [employer] ([id number]) PRESCRIPT ION [facility] Mar 11, 2018 [id number] MADAI DELUNA OTHER RELATIONSHIP [facility] PREFERRED PROVIDER ORGANIZAT ION (PPO) Jun 11, 2011 [id number] MADAI DELUNA PATIENT HU[employer]NA MCR (WNR) MEDICARE ADVANTAGE [facility] (WNR) Sep 11, 2022 [id number] [phone] GILL DELUNA PATIENT MEDICARE (WNR) MEDICARE (M) PART A January 10, 2012 PART A [id number] [phone] MIKIE GILL PATIENT MEDICARE (WNR) MEDICARE (M) PART B January 10, 2012 PART B [id number] [place] PATIENT MEDICARE (WNR) MEDICARE (M) PART A January 10, 2012 PART A [id number] MIKIE GILL PATIENT UNICARE PREFERRED PROVIDER ORGANIZAT ION (PPO) [place] STATE INDE* * Mar 11, 2015 [id number] MADAI DELUNA SPOUSE [facility] (WNR) MEDICARE ADVANTAGE [facility] (WNR) Mar 11, 2021 [id number] GILL DELUNA PATIENT WELL[employer] [facility] (WNR) MEDICARE ADVANTAGE [facility] (WNR) Sep 11, 2021 [id number] [phone] GILL DELUNA PATIENT Selected Encounter This section includes the information on record at [place] for the Encounter. Date/Time Encounter Type Encounter Description Reason Pro vider Source Jul 30, 2024 03:30 PM Outpatient Encounter PRIMARY CARE/MEDICINE IHE Encounter Template Text not used by [place] Plan of Treatment: Future Appointments (+ 6 [...] 31, 2024 02:00 PM AMBULATORY - MEDICINE [place] [facility] Aug 16, 2024 11:00 AM AMBULATORY - MEDICINE [place] [facility] Aug 22, 2024 01:00 PM AMBULATORY - MEDICINE [place] C [place] [facility] Aug 26, 2024 03:30 PM AMBULATORY - MEDICINE [place] C [place] [facility] Oct 17, 2024 01:00 PM AMBULATORY - MEDICINE [place] [facility] Oct 24, 2024 10:30 AM AMBULATORY - PSYCHIATRY [place]TR[place] [facility] Oct 24, 2024 10:30 AM AMBULATORY - PS[place]CHIATRY [place] [facility] Oct 29, 2024 08:30 AM AMBULATORY - MEDICINE [facility] Dec 12, 2024 10:30 AM [facility] Active, Pending, and Scheduled Orders This section includes a listing of several types of active, pending, and scheduled orders, including clinic medications orders, diagnostic test orders, procedure orders and consult orders; where the start date of the order is 45 days before the date of the Encounter or 45 days after the date of theEncounter. The data comes from all [place] treatment facilities. Test Date/Time Test Type Test Details Facility Name Jul 16, 2024 09:12 PM Consult Order [facility] Cons [employer] Supervisor's Choice [place] Lab Results: +/- 30 days of the [...] Range Comment Jul 25, 2024 11:45 AM [place] HEMOGLOBIN A1C PANEL Specimen Type: BLOOD Comment: [...] Jul 16, 2024 02:11 PM Reporting Lab: [facility] [address] [facility] [address] Performing Lab: [facility] [address] [facility] [address] HEMOGLOBIN A1C 8.5 H 4.0-5.6 Jul 25, 2024 11:45 AM [place] TSH Specimen Type: SERUM No comment entered. Ordering Provider: MARIIA ABBOTT Report Released Date/Time: Jul 16, 2024 02:11 PM Reporting Lab: [facility] [address] [facility] [address] Performing Lab: [address] [address] TSH 2.04 u[IU]/mL 0.35-5.00 Jul 25, 2024 11:45 AM [place] LIPID PANEL FASTING Specimen Type: SERUM No comment entered. Ordering Provider: MARIIA ABBOTT Report Released Date/Time: Jul 16, 2024 02:11 PM Reporting Lab: [address] [address] Performing Lab: [place] [id number] CHOLESTEROL 118 mg/dL TRIGLYCERIDE 77 mg/dL 0-150 LDL calculated 58 mg/dL 0-129 CHOL/HDL 2.6 HDL CHOLESTEROL 45 mg/dL 40-60 Jul 25, 2024 11:45 AM [place] LIVER FUNCTION Specimen Type: SERUM No comment entered. Ordering Provider: MARIIA ABBOTT Report Released Date/Time: Jul 16, 2024 02:11 PM Reporting Lab: [address] [address] Performing Lab: [address] [address] PROTEIN,TOTAL 6.8 g/dL 6.0-8.3 ALBUMIN 3.6 g/dL 3.5-5.0 ALKALINE PHOSPHATASE 71 U/L 40-150 AST 17 U/L 5-34 ALT 18 U/L BILIRUBIN, TOTAL 0.5 mg/dL 0.2-1.2 Jul 25, 2024 11:45 AM [place] BASIC METABOLIC PANEL (fasting) Specime n Type: SERUM No comment entered. Ordering Provider: MARIIA ABBOTT Report Released Date/Time: Jul 16, 2024 02:11 PM Reporting Lab: [address] [address] Performing Lab: [place] [phone] UREA NITROGEN 39 mg/dL H 7-25 GLUCOSE 239 mg/dL H 65-100 SODIUM 140 mmol/L 135-145 POTASSIUM 4.4 mmol/L 3.5-5.0 CHLORIDE 104 mmol/L 100-110 CO2 25 meq/L 20-30 CREATININE, Serum 1.03 mg/dL 0.50-1.40 eGFR(CKD-EPI 2020) 75 mL/min >60 Jul 25, 2024 11:45 AM [place] CBC AND DIFF (AUTO) Specimen Type: BLOOD No comment entered. Ordering Provider: MARIIA ABBOTT Report Released Date/Time: Jul 16, 2024 02:11 PM Reporting Lab: [facility] [address] [facility] [address] Performing Lab: [place] [facility] [address] [facility] [address] WBC 6.11 10*3/uL 4.50-11.00 RBC 4.86 10*6/uL [...] and tobacco- related health factors from the [facility] where the Encounter took place. Current Smoking Status This section includes the most current smoking, or tobacco-related health factor, from the [place] facility where the Encounter took place. Date/Time Current Smoking Status Comment Facil ity Jul 06, 2021 09:30 AM VA-TOBACCO NEVER USED [place] Tobacco Use History This section includes a history of the smoking, or tobacco-related health factors, that were collected on or before the date of the Encounter. The data comes from the [place] facility where the Encounter took place. Date/Time Smoking Status/Tobacco Use Comment F acility Apr 30, 2020 01:00 PM VA-TOBACCO FORMER USER [place] Apr 30, 2020 01:00 PM VA-TOBACCO QUIT 15 YRS OR MORE [place] January 09, 2019 02:16 PM VA-TOBACCO FORMER USER [place] January 09, 2019 02:16 PM VA-TOBACCO QUIT 15 YRS OR MORE [place] Feb 13, 2018 11:05 AM QUIT TOBACCO USE > 7 YEARS AGO [place] Feb 28, 2017 01:42 PM LIFETIME NON-TOBACCO USER quit 1976 [place] Nov 17, 2015 09:53 AM QUIT TOBACCO USE > 7 YEARS AGO [place] February 08, 2002 03:04 PM QUIT TOBACCO USE > 7 YEARS AGO Patient states he smoked from age [age] and quit. [place] Aug 10, 2001 03:42 PM NON-TOBACCO USER Stopped tobacco 35 years ago [place] Encounter Notes: All associated encounter notes This section contains the clinical notes associated to the Encounter. Date/Time Encounter Note(s) Provider Source Jul 24, 2024 10:02 AM ADMINISTRATIVE NOT E: LOCAL TITLE: ADMINISTRATIVE NOTE STANDARD TITLE: ADMINISTRATIVE NOTE DATE OF NOTE: JUL 24, 2024@10:02 ENTRY DATE: JUL 24, 2024@10:02:27 AUTHOR: NEGRO CLARKE EXP COSIGNER: URGENCY: STATUS: COMPLETED [facility] [address] [place] [address] [phone] * [phone] * GILL DELUNA [address] [place], [place] [address] Date: JUL 24, 2024 re: This is a reminder of your upcoming PCP appt with MARIIA BROUSSARD Appointment Date: Jul@15:30 Appointment Type: In-person visit (X)Fasting blood work NON fasting blood work CONFIRMED APPT AND LABWORK WTH THE Sincerely, Office Staff for: MARIIA BROUSSARD Primary Care Provider [facility] [address] [place] [id number] T [phone] F [phone] Upcoming Appointments: 07/30/2024 15:30 CWM/SO/PACT 5 08/16/2024 11:00 CWM/SO/PHARM/PACT 2 08/26/2024 15:30 NHM/OPTOMETRY/[place] 10/29/2024 08:30 CWM/SO/PODIATRY/ROSS 12/12/2024 10:30 CWM/NO/DERMATOLOGY 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
--- OUTSIDE RECORDS SUMMARY | 2024-08-21 23:34 | XMS_ITS | Encounter Summary ---
Author Name [facility] [place] Organization [place] Address [address] [place] [address] Care Team Providers Care Accounts Specialist Name Role Phone MARIIA BROUSSARD Primary [...] Patient's Relationship to Policy [employer] ([id number]) PRESCRIPT ION [facility] Mar 11, 2018 [id number] [phone] MADAI DELUNA OTHER RELATIONSHIP [facility] PREFERRED PROVIDER ORGANIZAT ION (PPO) Jun 11, 2011 [id number] MADAI DELUNA PATIENT HUMANA [facility] (WNR) MEDICARE ADVANTAGE [facility] (WNR) Sep 11, 2022 [id number] [phone] GILL DELUNA PATIENT MEDICARE (WNR) MEDICARE (M) PART A January 10, 2012 PART A [id number] GILL DELUNA PATIENT MEDICARE (WNR) MEDICARE (M) PART B January 10, 2012 PART B [id number] GILL DELUNA PATIENT MEDICARE (WNR) MEDICARE (M) PART A January 10, 2012 PART A [id number] GILL DELUNA PATIENT UNICARE PREFERRED PROVIDER ORGANIZAT ION (PPO) [place] RE STATE INDE* * Mar 11, 2015 [id number] MADAI DELUNA SPOUSE [facility] (WNR) MEDICARE ADVANTAGE [facility] (WNR) Mar 11, 2021 [id number] GILL DELUNA PATIENT [facility] (WNR) MEDICARE ADVANTAGE [facility] (WNR) Sep 11, 2021 [id number] GILL DELUNA PATIENT Selected Encounter This section includes the information on record at [place] for the Encounter. Date/Time Encounter Type Encounter Description Reason Provider Source Jul 15, 2024 02:38 PM HC PRO PHONE CALL 5-10 MIN TELEPHONE/MEDICIN E ICD-10-CM F32.A Depression, unspecified TRYBA,ALCIRA E Encounter Template Text not used by [place] Assessments - Encounter Diagnoses This section includes the primary and secondary diagnoses documented for the Encounter. Date/Time Primary/Secondary Diagnosis Diagnosis Name Provider Source Jul 15, 2024 02:38 PM PRIMARY Depression, unspecified TRYBA,ALCIRA [facility] [place] [facility] Jul 15, 2024 02:38 PM SECONDARY Hypertensive heart disease without heart failure TRYBA,ALCIRA [facility] [place] [facility] Plan of Treatment: Future Appointments [...] - MEDICINE [place] [facility] [place] [facility] Jul 31, 2024 02:00 PM AMBULATORY - MEDICINE [place] [facility] [place] [facility] Aug 16, 2024 11:00 AM AMBULATORY - MEDICINE [place] [facility] [place] [facility] Aug 22, 2024 01:00 PM AMBULATORY - MEDICINE [place] [facility] [place] [facility] Aug 26, 2024 03:30 PM AMBULATORY - MEDICINE [facility] [place] [facility] Oct 17, 2024 01:00 PM AMBULATORY - MEDICINE [place] [facility] [place] [facility] Oct 24, 2024 10:30 AM AMBULATORY - PSYCHIATRY [place] [facility] [place] [facility] Oct 24, 2024 10:30 AM AMBULATORY [place] [facility] Oct 29, 2024 08:30 AM [facility] Dec 12, 2024 10:30 AM [facility] Active, Pending, and Scheduled Orders [...] 09:12 PM Consult Order COMMUNITY CARE-UROLOGY Cons Energy Management Specialist's Choice [place] Lab Results: +/- 30 days of the [...] Range Comment Jul 25, 2024 11:45 AM [place] HEMOGLOBIN A1C PANEL Specimen Type: BLOOD Comment: [...] 2024 02:11 PM Reporting Lab: [facility] [place] [facility] [address] [facility] [address] Performing Lab: [facility] [place] [address] [address] HEMOGLOBIN A1C 8.5 H 4.0-5.6 Jul 25, 2024 11:45 AM [place] TSH Specimen Type: SERUM No comment entered. Ordering Provider: MARIIA ABBOTT Report Released Date/Time: Jul 16, 2024 02:11 PM Reporting Lab: [facility] [place] [facility] [address] [facility] [address] Performing Lab: [facility] [place] [address] [address] TSH 2.04 u[IU]/mL 0.35-5.00 Jul 25, 2024 11:45 AM [place] LIPID PANEL FASTING Specimen Type: SERUM No comment entered. Ordering Provider: MARIIA ABBOTT Report Released Date/Time: Jul 16, 2024 02:11 PM Reporting Lab: [facility] [place] [address] [address] Performing Lab: [facility] [place] [address] [address] CHOLESTEROL 118 mg/dL TRIGLYCERIDE 77 mg/dL 0-150 LDL calculated 58 mg/dL 0-129 CHOL/HDL 2.6 HDL CHOLESTEROL 45 mg/dL 40-60 Jul 25, 2024 11:45 AM [place] LIVER FUNCTION Specimen Type: SERUM No comment entered. Ordering Provider: MARIIA ABBOTT Report Released Date/Time: Jul 16, 2024 02:11 PM Reporting Lab: [facility] [place] [address] [address] Performing Lab: [facility] [place] [address] [address] PROTEIN,TOTAL 6.8 g/dL 6.0-8.3 ALBUMIN 3.6 g/dL 3.5-5.0 ALKALINE PHOSPHATASE 71 U/L 40-150 AST 17 U/L 5-34 ALT 18 U/L BILIRUBIN, TOTAL 0.5 mg/dL 0.2-1.2 Jul 25, 2024 11:45 AM [place] BASIC METABOLIC PANEL (fasting) Specime n Type: SERUM No comment entered. Ordering Provider: MARIIA ABBOTT Report Released Date/Time: Jul 16, 2024 02:11 PM Reporting Lab: [address] [address] Performing Lab: [address] [address] UREA NITROGEN 39 mg/dL H 7-25 GLUCOSE 239 mg/dL H 65-100 SODIUM 140 mmol/L 135-145 POTASSIUM 4.4 mmol/L 3.5-5.0 CHLORIDE 104 mmol/L 100-110 CO2 25 meq/L 20-30 CREATININE, Serum 1.03 mg/dL 0.50-1.40 eGFR(CKD-EPI 2020) 75 mL/min >60 Jul 25, 2024 11:45 AM [place] CBC AND DIFF (AUTO) Specimen Type: BLOOD No comment entered. Ordering Provider: MARIIA ABBOTT Report Released Date/Time: Jul 16, 2024 02:11 PM Reporting Lab: [address] [address] Performing Lab: [address] [address] WBC 6.11 10*3/uL 4.50-11.00 RBC 4.86 10*6/uL [...] Encounter. Date/Time Encounter Note(s) Provider Source Jul 15, 2024 02:38 PM CARE COORDINATION HOME TELEHEALTH FOLLOW-UP NOTE: LOCAL TITLE: HT INTERVENTION NOTE STANDARD TITLE: CARE COORDINATION HOME TELEHEALTH FOLLOW-UP NOTE DATE OF NOTE: JUL 15, 2024@14:38 ENTRY DATE: JUL 15, 2024@14:39 AUTHOR: ALCIRA LAYNE EXP COSIGNER: URGENCY: STATUS: COMPLETED HT INTERVENTION NOTE Has ADDENDA [place] is actively enrolled in the Home Telehealth program. Review of data shows the following out of range responses: GILL DELUNA (-[id number]) Vital Sign for: 06/16/2024 - 07/15/2024 (All times are EST; All weights are lbs) Primary DMP: VHA-HTN Comorbid(s): Summary Weight Sys BP Barnett BP HR Pain High 173.6 195 103 106 Low 166.4 95 52 43 Average 171.9 145 79 79 Date Time Wt Time Sys Barnett Time HR Time Pain 07/14/2024 - 22:03 111/85 22:03 97 07/14/2024 21:50 171.8 21:49 132/103 21:49 99 07/13/2024 20:37 173.2 20:36 128/92 20:36 106 07/12/2024 - 19:46 129/77 19:46 51 07/12/2024 - 05:43 160/74 05:43 48 07/12/2024 [...] 06/16/2024 00:05 169.8 00:04 160/80 00:04 67 Source: @[employer]; [employer] Assessment: Reviewed data received over the weekend. Hypertension; Blood pressure labile. Tachycardia; Heart rate varibale. Called [place] ( identified by full name and date of ) to review data and assess for any symptoms, changes, questions or concerns. reports he is feeling well. [place] denies headaches, dizziness, lightheadedness, changes in vision, chest pain (though he reports he occasionally gets zingers in my heart ), shortness of breath, palpitations, racing of heart, unusual fatigue or weakness. reports compliance with medication regimen and confirms he is taking the following: Active Outpatient Medications (including Supplies): ACCU-CHEK GUIDE [...] 1 SENSOR DIRECTED EVERY 10 ACTIVE DAYS INSULIN,ASPART(EQV-NOVLG)10 0UN/ML FLXPEN INJECT ACTIVE DIRECTED SUBCUTANEOUSLY [...] BY MOUTH ONCE DAILY ACTIVE (S) FOR ANXIETY NEEDLE,PEN 31G,5MM USE 1 NEEDLE [...] FLUTICASONE NASAL SOLN,NASAL INTO EACH NOSTRIL ACTIVE has an appointment with community laser cutter tomorrow and plans to attend. He questions if he needs Zio patch again for longer period of time and whether he needs labs drawn. [place] reports last evening blood pressure was likely elevated as he did not sit and rest prior to assessing blood pressure. He also reports tachycardia this weekend was following exercising. Intervention(s)/Plan: Reviewed/Educated [place] of the following: Signs/symptoms of cardiac decompensation, risks, treatment, when and where to seek help (call provider vs. ). Normal blood pressure: less than 120/80 Target goal for blood pressure: less than 130/80 Call your provider's office if your systolic pressure (top number) is frequently over 130. Call your provider's office if your diastolic pressure (bottom number) is frequently over 80. If blood pressure suddenly exceeds 180/100, wait five minutes and then test blood pressure again. If readings are still unusually high, call or go to nearest ER for evaluation/treatment. Normal heart rate: 60-100 If heart rate is frequently greater than 100, contact provider. If heart rate is greater than 120, call or go to nearest ER for evaluation/treatment. Assess your blood pressure approximately two hours after taking your medication and as needed. Rest for at least 5-10 minutes prior to assessing your blood pressure. Remain still, try to remain calm and do not talk, eat or drink while using the monitor. Instructed to continue to take all medications as ordered. Continue to maintain low sodium diet (less than 2000mg per day) and avoiding caffeine. Hydrate well with water throughout the day (at least 64 ounces daily). Complete health check daily and as needed. Transmit all data to for review/monitoring. Reminded of the following upcoming appointments: 07/16/2024 09:40 [facility] verbalized understanding of education and denied questions or concerns. Provider: This information is sent for your review and any further recommendations in regards to the Home Telehealth Plan of Care. Thank you! [place] has appointment with community laser cutter Dr. Grullon tomorrow. TYPE OF ENCOUNTER: Telephone Length of call: 5-10 minutes WHOLE HEALTH COACHING SKILLS Coaching or Motivational Interviewing skills used. /simone/ KAVITHA Albert, RN [facility]-Home Telehealth Associate Juvenile Court Judge Signed: 07/15/2024 15:08 Receipt Acknowledged By: 07/22/2024 23:08 /es/ MARIIA BROUSSARD MD PHYSICIAN 07/18/2024 07:20 /es/ ZAID ODONNELL RN REGISTERED NURSE 07/16/2024 ADDENDUM STATUS: COMPLETED Your fax has been successfully sent to ATTN: Dr. Grullon at [phone]. ------ 07/15/2024 3:23:14 PM Transmission Record Sent to [phone] with remote ID [id number] Result: (0/339;0/0) Success Page record: 1 - 5 Elapsed time: 03:30 on channel 10 /simone/ KAVITHA Albert, RN [facility]-Home Telehealth Associate Juvenile Court Judge Signed: 07/16/2024 09:18 ALCIRA LAYNE [facility]
--- OUTSIDE RECORDS SUMMARY | 2024-08-21 23:34 | XMS_ITS | Encounter Summary ---
Author Name [facility] [place] Organization [place] Address [address] [place] [address] Care Team Providers Care Structural Welder Name Role Phone MARIIA BROUSSARD Primary Care [...] Patient's Relationship to Policy [employer] ([id number]) PRESCRIPT ION [facility] Mar 11, 2018 [id number] [phone] MADAI DELUNA OTHER RELATIONSHIP [facility] PREFERRED PROVIDER ORGANIZAT ION (PPO) Jun 11, 2011 [id number] MADAI DELUNA PATIENT HUMANA [facility] (WNR) MEDICARE ADVANTAGE [facility] (WNR) Sep 11, 2022 [id number] GILL DELUNA PATIENT MEDICARE (WNR) MEDICARE (M) PART A January 10, 2012 PART A [id number] [phone] [place] PATIENT MEDICARE (WNR) MEDICARE (M) PART B January 10, 2012 PART B [id number] GILL DELUNA PATIENT MEDICARE (WNR) MEDICARE (M) PART A January 10, 2012 PART A [id number] GILL DELUNA PATIENT UNICARE PREFERRED PROVIDER ORGANIZAT ION (PPO) [place] RE STATE THUYE* * Mar 11, 2015 [id number] MADAI DELUNA SPOUSE [facility] (WNR) MEDICARE ADVANTAGE [facility] (WNR) Mar 11, 2021 [id number] GILL DELUNA PATIENT [facility] (WNR) MEDICARE ADVANTAGE [facility] (WNR) Sep 11, 2021 [id number] [phone] MIKIE GILL PATIENT Selected Encounter This section includes the information on record at [place] for the Encounter. Date/Time Encounter Type Encounter Description Reason Pro vider Source May 01, 2024 12:00 PM Outpatient Encounter COMMUNITY CARE CONSULT IHE Encounter Template Text not used by [place] Plan of Treatment: Future Appointments (+ 6 months) and Future Tests (+/- 45 days) The Plan of Treatment section includes future care activities for the patient from all [place] treatmentfacilities. This section includes future appointments and future orders which are active, pending or scheduled. Future Appointments This section includes appointments that were scheduled to occur 6 months from the date of the Encounter, up to a maximum of 20 appointments. The data comes from all [place] treatment facilities. Appointment Date/Time Appointment Type Appointme nt Facility Name May 16, 2024 11:30 AM AMBULATORY - MEDICINE [place] [facility] [place] [facility] Jun 11, 2024 08:30 AM [facility] Jun 18, 2024 02:15 PM AMBULATORY - MEDICINE [facility] Jun 20, 2024 10:45 AM [facility] Jul 03, 2024 09:30 AM AMBULATORY - MEDICINE [place] [facility] [place] [facility] Jul 16, 2024 09:40 AM AMBULATORY - MEDICINE [place] [facility] [place] [facility] Jul 31, 2024 02:00 PM AMBULATORY - MEDICINE [place] [facility] [place] [facility] Aug 16, 2024 11:00 AM AMBULATORY - MEDICINE [place] [facility] [place] [facility] Aug 22, 2024 01:00 PM AMBULATORY - MEDICINE [place] [facility] [place] [facility] Aug 26, 2024 03:30 PM AMBULATORY - MEDICINE [place] [facility] [place] [facility] Oct 17, 2024 01:00 PM AMBULATORY - MEDICINE [place] [facility] [facility] Oct 24, 2024 10:30 AM AMBULATORY - PSYCHIATRY [place] [facility] [place] [facility] Oct 24, 2024 10:30 AM AM[place]UL[place] [facility] Oct 29, 2024 08:30 AM [...] of theEncounter. The data comes from all [place] treatment facilities. Test Date/Time Test Type Test Details Facility Name May 03, 2024 03:01 PM Consult Order VISN [facility] OUTPT IFC CT Cons Transportation Lead's Choice [place] May 09, 2024 10:35 AM Consult Order COMMUNITY CARE-CARDIOLOGY Cons Transportation Lead's [facility] Lab Results: +/- 30 days of the encounter This section includes the Chemistry and Hematology Lab Results on record with [place] for the patient. Radiology Reports and Pathology Reports are provided separately, in subsequent sections. Lab Results This section contains the Chemistry/Hematology Results that were resulted 30 days before or 30 daysafter the date of the Encounter. Date/Time Source Result Type Result - Unit Interpretation Reference Range Comment May 07, 2024 08:37 AM [place] PSA Specimen Type: SERUM No comment entered. Ordering Provider: MARIIA ABBOTT Report Released Date/Time: May 04, 2024 12:14 AM Reporting [facility]: [facility] [address] [address] Performing Lab: [facility] [address] [address] PSA 2.56 ng/mL 0.00-4.00 May 03, 2024 01:53 PM [place] HEMOGLOBIN A1C PANEL Specimen Type: BLOOD Comment: [...] Oct 30, 2023 05:07 PM Reporting Lab: [address] [address] Performing Lab: [address] [address] HEMOGLOBIN A1C 8.1 H 4.0-5.6 May 03, 2024 01:53 PM [place] LIPID PANEL FASTING Specimen Type: SERUM No comment entered. Ordering Provider: MARIIA ABBOTT Report Released Date/Time: Oct 30, 2023 05:07 PM Reporting Lab: [address] [address] Performing Lab: [address] [address] CHOLESTEROL 108 mg/dL TRIGLYCERIDE 79 mg/dL 0-150 LDL calculated 47 mg/dL 0-129 CHOL/HDL 2.4 HDL CHOLESTEROL 45 mg/dL 40-60 May 03, 2024 01:53 PM [place] BASIC METABOLIC PANEL (fasting) Specime n Type: SERUM No comment entered. Ordering Provider: MARIIA ABBOTT Report Released Date/Time: Oct 30, 2023 05:07 PM Reporting Lab: [address] [address] Performing Lab: [address] [address] UREA NITROGEN 46 mg/dL H 7-25 GLUCOSE 294 mg/dL H 65-100 SODIUM 137 mmol/L 135-145 POTASSIUM 4.4 mmol/L 3.5-5.0 CHLORIDE 105 mmol/L 100-110 CO2 21 meq/L 20-30 CREATININE, Serum 1.05 mg/dL 0.50-1.40 eGFR(CKD-EPI 2020) 73 mL/min >60 May 03, 2024 01:53 PM [place] LIVER FUNCTION Specimen Type: SERUM No comment entered. Ordering Provider: MARIIA ABBOTT Report Released Date/Time: Oct 30, 2023 05:07 PM Reporting Lab: [facility] [address] [address] Performing Lab: [address] [address] PROTEIN,TOTAL 7.3 g/dL 6.0-8.3 ALBUMIN 3.8 g/dL 3.5-5.0 ALKALINE PHOSPHATASE 73 U/L 40-150 AST 21 U/L 5-34 ALT 22 U/L BILIRUBIN, TOTAL 0.5 mg/dL 0.2-1.2 May 03, 2024 01:53 PM [place] VITAMIN D (25-OH) Specimen Type: SERUM No comment entered. Ordering Provider: MARIIA ABBOTT Report Released Date/Time: Oct 30, 2023 05:07 PM Reporting Lab: [facility] [address] [address] Performing Lab: [address] [address] VITAMIN D (25-OH) 24 ng/mL 20-50 May 03, 2024 01:53 PM [place] TSH Specimen Type: SERUM No comment entered. Ordering Provider: MARIIA ABBOTT Report Released Date/Time: Oct 30, 2023 05:07 PM Reporting Lab: [facility] [address] [address] Performing Lab: [facility] [address] [address] TSH 1.73 u[IU]/mL 0.35-5.00 May 03, 2024 01:53 PM [place] CALCIUM Specimen Type: SERUM No comment entered. Ordering Provider: MARIIA ABBOTT Report Released Date/Time: Oct 30, 2023 05:07 PM Reporting Lab: [facility] [address] [address] Performing Lab: [facility] [address] [facility] [address] CALCIUM 9.7 mg/dL 8.5-10.2 May 03, 2024 01:53 PM [place] MICROALBUMIN CREATININE RATIO PANEL Spe cimen Type: URINE No comment entered. Ordering Provider: MARIIA ABBOTT Report Released Date/Time: Oct 30, 2023 05:07 PM Reporting Lab: [address] [address] Performing Lab: [address] [address] MICROALBUMIN/C REATININE RATIO 128.4 mg/g H 0-29.9 MICROALBUMIN,Q UANTITATIVE 5.4 mg/dL RR UNAVAIL CREATININE URINE 42.05 mg/dL May 03, 2024 01:53 PM [place] CBC AND DIFF (AUTO) Specimen Type: BLOOD No comment entered. Ordering Provider: MARIIA ABBOTT Report Released Date/Time: Oct 30, 2023 05:07 PM Reporting Lab: [address] [address] Performing Lab: [address] [address] WBC 6.25 10*3/uL 4.50-11.00 RBC 5.12 10*6/uL [...] and tobacco- related health factors from the [place] facility where the Encounter took place. Current Smoking Status This section includes the most current smoking, or tobacco-related health factor, from the [place] facility where the Encounter took place. Date/Time Current Smoking Status Comment Facil ity Dec 12, 2022 03:10 PM VA-TOBACCO NEVER USED [facility] Encounter Notes: All associated encounter notes This section contains the clinical notes associated to the Encounter. Date/Time Encounter Note(s) Provider Source May 01, 2024 12:00 PM NONVA CONSULT: LOCAL TITLE: COMMUNITY CARE-CONSULT RESULT NOTE STANDARD TITLE: NONVA CONSULT DATE OF NOTE: MAY 01, 2024@12:00 ENTRY DATE: JUL 31, 2024@11:56:17 AUTHOR: ALLYSON MANCUSO EXP COSIGNER: URGENCY: STATUS: COMPLETED VistA Imaging - Scanned Document SCANNED DOCUMENT SIGNATURE NOT REQUIRED Electronically Filed: 07/31/2024 by: ALLYSON MANCUSO CARGO AND CONTAINER INSPECTOR ALLYSON MANCUSO [facility]
--- OUTSIDE RECORDS SUMMARY | 2024-08-21 23:34 | XMS_ITS | Encounter Summary ---
Author Name [place] Address [address] [place] [address] Care Team Providers Care Threat Monitoring Analyst Name Role Phone MARIIA BROUSSARD Primary [...] Patient's Relationship to Policy [employer] SCRIPTS ([id number]) PRESCRIPT ION [facility] Mar 11, 2018 [id number] [phone] MADAI DELUNA OTHER RELATIONSHIP [facility] PREFERRED PROVIDER ORGANIZAT ION (PPO) Jun 11, 2011 [id number] [phone] MADAI DELUNA PATIENT HUMANA [facility] (WNR) MEDICARE ADVANTAGE [facility] (WNR) Sep 11, 2022 [id number] [phone] GILL DELUNA PATIENT MEDICARE (WNR) MEDICARE (M) PART A January 10, 2012 PART A [id number] GILL DELUNA PATIENT MEDICARE (WNR) MEDICARE (M) PART B January 10, 2012 PART B [id number] [phone] GILL DELUNA PATIENT MEDICARE (WNR) MEDICARE (M) PART A January 10, 2012 PART A [id number] GILL DELUNA PATIENT UNICARE PREFERRED PROVIDER ORGANIZAT ION (PPO) [place] RE STATE INDE* * Mar 11, 2015 [id number] MADAI DELUNA SPOUSE [facility] (WNR) MEDICARE ADVANTAGE [facility] (WNR) Mar 11, 2021 [id number] GILL DELUNA PATIENT WELLCARE MCR (WNR) MEDICARE ADVANTAGE [facility] (WNR) Sep 11, 2021 [id number] GILL DELUNA PATIENT Selected Encounter This section includes the information on record at [place] for the Encounter. Date/Time Encounter Type Encounter Description Reason Provider Source Jul 26, 2024 01:57 PM HC PRO PHONE CALL 5-10 MIN TELEPHONE/MEDICIN E ICD-10-CM I11.9 Hypertensive heart disease without heart failure ALCIRA LAYNE Belle Encounter Template Text not used by [place] Assessments - Encounter Diagnoses This section includes the primary and secondary diagnoses documented for the Encounter. Date/Time Primary/Secondary Diagnosis Diagnosis Name Provider Source Jul 26, 2024 01:57 PM PRIMARY Hypertensive heart disease without heart failure ALCIRA LAYNE [facility] [place] [facility] Plan of Treatment: Future Appointments [...] - MEDICINE [place] C [facility] [facility] Aug 16, 2024 11:00 AM AMBULATORY - MEDICINE [place] C [place] [facility] Aug 22, 2024 01:00 PM AMBULATORY - MEDICINE [place] C [place] [facility] Aug 26, 2024 03:30 PM AMBULATORY - MEDICINE [place] C [place] [facility] Oct 17, 2024 01:00 PM AMBULATORY - MEDICINE [place] C [place] [facility] Oct 24, 2024 10:30 AM AMBULATORY - PSYCHIATRY [place] [facility] Oct 24, 2024 10:30 AM AMBULATORY - [place]ATRY [place] [facility] Oct 29, 2024 08:30 AM AMBULATORY - MEDICINE [place] [facility] Dec 12, 2024 10:30 AM AMBULATORY - MEDICINE [place] C [facility] [facility] Active, Pending, and Scheduled Orders This section includes a listing of several types of active, pending, and scheduled orders, including clinic medications orders, diagnostic test orders, procedure orders and consult orders; where the start date of the order is 45 days before the date of the Encounter or 45 days after the date of theEncounter. The data comes from all [place] treatment facilities. Test Date/Time Test Type Test Details Facility Name Jul 16, 2024 09:12 PM Consult Order [facility]-UROLOGY Cons Purchasing Buyer's Choice [facility] Lab Results: +/- 30 days of the [...] Range Comment Jul 25, 2024 11:45 AM [facility] HEMOGLOBIN A1C PANEL Specimen Type: BLOOD Comment: [...] 16, 2024 02:11 PM Reporting Lab: [facility] [address] [facility] [address] Performing Lab: [address] [address] HEMOGLOBIN A1C 8.5 H 4.0-5.6 Jul 25, 2024 11:45 AM [facility] TSH Specimen Type: SERUM No comment entered. Ordering Provider: MARIIA ABBOTT Report Released Date/Time: Jul 16, 2024 02:11 PM Reporting Lab: [address] [address] Performing Lab: [address] [address] TSH 2.04 u[IU]/mL 0.35-5.00 Jul 25, 2024 11:45 AM [facility] LIPID PANEL FASTING Specimen Type: SERUM No comment entered. Ordering Provider: MARIIA ABBOTT Report Released Date/Time: Jul 16, 2024 02:11 PM Reporting Lab: [address] [address] Performing Lab: [address] [address] CHOLESTEROL 118 mg/dL TRIGLYCERIDE 77 mg/dL 0-150 LDL calculated 58 mg/dL 0-129 CHOL/HDL 2.6 HDL CHOLESTEROL 45 mg/dL 40-60 Jul 25, 2024 11:45 AM [facility] LIVER FUNCTION Specimen Type: SERUM No comment entered. Ordering Provider: MARIIA ABBOTT Report Released Date/Time: Jul 16, 2024 02:11 PM Reporting Lab: [address] [address] Performing Lab: [address] [address] PROTEIN,TOTAL 6.8 g/dL 6.0-8.3 ALBUMIN 3.6 g/dL 3.5-5.0 ALKALINE PHOSPHATASE 71 U/L 40-150 AST 17 U/L 5-34 ALT 18 U/L BILIRUBIN, TOTAL 0.5 mg/dL 0.2-1.2 Jul 25, 2024 11:45 AM [facility] BASIC METABOLIC PANEL (fasting) Specime n Type: SERUM No comment entered. Ordering Provider: MARIIA ABBOTT Report Released Date/Time: Jul 16, 2024 02:11 PM Reporting Lab: [address] [address] Performing Lab: [address] [address] UREA NITROGEN 39 mg/dL H 7-25 GLUCOSE 239 mg/dL H 65-100 SODIUM 140 mmol/L 135-145 POTASSIUM 4.4 mmol/L 3.5-5.0 CHLORIDE 104 mmol/L 100-110 CO2 25 meq/L 20-30 CREATININE, Serum 1.03 mg/dL 0.50-1.40 eGFR(CKD-EPI 2020) 75 mL/min >60 Jul 25, 2024 11:45 AM [facility] CBC AND DIFF (AUTO) Specimen Type: BLOOD No comment entered. Ordering Provider: MARIIA ABBOTT Report Released Date/Time: Jul 16, 2024 02:11 PM Reporting Lab: [address] [address] Performing Lab: [address] [address] WBC 6.11 10*3/uL 4.50-11.00 RBC 4.86 10*6/uL [...] 03, 2024 10:00 AM VA-TOBACCO NEVER USED [place] [employer] [facility] Tobacco Use History This section includes a history of the smoking, or tobacco-related health factors, that were collected on or before the date of the Encounter. The data comes from the [place] facility where the Encounter took place. Date/Time Smoking Status/Tobacco Use Comment F acility Dec 12, 2022 03:10 PM VA-TOBACCO NEVER USED [place] [employer] [facility]CareTRN [facility] Encounter Notes: All associated encounter notes This section contains the clinical notes associated to the Encounter. Date/Time Encounter Note(s) Provider Source Jul 26, 2024 01:57 PM CARE COORDINATION HOME TELEHEALTH FOLLOW-UP NOTE: LOCAL TITLE: HT INTERVENTION NOTE STANDARD TITLE: CARE COORDINATION HOME TELEHEALTH FOLLOW-UP NOTE DATE OF NOTE: JUL 26, 2024@13:57 ENTRY DATE: JUL 26, 2024@13:57:43 AUTHOR: ALCIRA LAYNE EXP COSIGNER: URGENCY: STATUS: COMPLETED is actively enrolled in the Home Telehealth program. Review of data shows the following out of range responses: GILL DELUNA (-0392) Vital Sign for: 06/27/2024 - 07/26/2024 (All times are EST; All weights are lbs) Primary DMP: VHA-HTN Comorbid(s): Summary Weight Sys BP Barnett BP HR Pain High 175.0 195 130 106 Low 171.2 92 51 43 Average 173.0 139 78 80 Date Time Wt Time Sys Barnett Time HR Time Pain 07/26/2024 10:40 171.2 - - 07/25/2024 23:35 175.0 - - 07/20/2024 - 21:51 159/130 21:51 97 07/19/2024 19:54 175.0 19:53 129/72 19:53 84 07/18/2024 - 15:13 92/51 15:13 100 07/18/2024 14:48 173.0 14:47 112/62 14:47 98 07/18/2024 - 00:49 107/59 00:49 90 07/18/2024 00:37 173.2 00:36 128/70 00:36 96 07/16/2024 - 22:25 112/73 - 07/16/2024 21:40 174.4 21:39 156/80 21:39 103 07/15/2024 - 16:03 156/92 16:03 96 07/14/2024 - 22:03 111/85 22:03 97 07/14/2024 [...] 06/27/2024 23:07 171.6 23:07 163/84 23:07 88 Source: [employer], [employer]; [employer]r Pro System Assessment: 07/20/2024 - 21:51 159/130 was transmitted and received: Transmission Date/Time: 07/25/2024 23:37 (EST) Called ( identified by full name and date of ) to review data and assess for any symptoms, changes, questions or concerns. reports he is feeling well. [place] denies headaches, dizziness, lightheadedness, blurred/changed vision, chest pain, shortness of breath, palpitations, racing of heart, unusual fatigue or weakness. reports no other changes. reports ongoing difficulty with blood pressure machine, cuff has been deflating during assessments (was recently replaced), the reading from 07/20/2024 was transmitted and received 07/25/2024, Maryellen does not believe this was an accurate reading. denies any issue with Commander Flex. He has continued to assess weight. agrees to contact [employer] to further troubleshoot and will reach out to this press writer with any further questions/concerns. Forwarding to provider for review only. TYPE OF ENCOUNTER: Telephone Length of call: 5-10 minutes /simone/ KAVITHA Albert, RN [facility]-Home Telehealth Canary Raiser Signed: 07/26/2024 14:03 Receipt Acknowledged By: 07/27/2024 10:00 /simone/ MARIIA BROUSSARD MD PHYSICIAN [facility]AYNE [facility]
--- OUTSIDE RECORDS SUMMARY | 2024-08-21 23:35 | XMS_ITS | Encounter Summary ---
Author Name [place] Address [address] [place] [address] Care Team Providers Care Locks Inspector Name Role Phone MARIIA BROUSSARD Primary [...] Patient's Relationship to Policy [employer]IP[employer] ([id number]) PRESCRIPT ION [facility] Mar 11, 2018 [id number] [phone] MADAI DELUNA OTHER RELATIONSHIP [facility] PREFERRED PROVIDER ORGANIZAT ION (PPO) Jun 11, 2011 [id number] [phone] MADAI DELUNA PATIENT HUMANA [facility] (WNR) MEDICARE ADVANTAGE [facility] (WNR) Sep 11, 2022 [id number] [phone] GILL DELUNA PATIENT MEDICARE (WNR) MEDICARE (M) PART A January 10, 2012 PART A [id number] GILL DELUNA PATIENT MEDICARE (WNR) MEDICARE (M) PART B January 10, 2012 PART B [id number] GILL DELUNA PATIENT MEDICARE (WNR) MEDICARE (M) PART A January 10, 2012 PART A [id number] GILL DELUNA PATIENT UNICARE PREFERRED PROVIDER ORGANIZAT ION (PPO) [place] RE STATE INDE* * Mar 11, 2015 [id number] MADAI DELUNA SPOUSE [facility] (WNR) MEDICARE ADVANTAGE [facility] (WNR) Mar 11, 2021 [id number] GILL DELUNA PATIENT WELLCARE MCR (WNR) MEDICARE ADVANTAGE [facility] (WNR) Sep 11, 2021 [id number] GILL DELUNA PATIENT Selected Encounter This section includes the information on record at [place] for the Encounter. Date/Time Encounter Type Encounter Description Reason Provider Source Aug 05, 2024 01:45 PM HC PRO PHONE CALL 5-10 MIN TELEPHONE/MEDICIN E ICD-10-CM I11.9 Hypertensive heart disease without heart failure MONICA QUINTEROS [facility] Encounter Template Text not used by [place] Assessments - Encounter Diagnoses This section includes the primary and secondary diagnoses documented for the Encounter. Date/Time Primary/Secondary Diagnosis Diagnosis Name Provider Source Aug 05, 2024 01:45 PM PRIMARY Hypertensive heart disease without heart failure MONICA QUINTEROS [facility] Plan of Treatment: Future Appointments (+ [...] Appointment Type Appointme nt Facility Name Aug 16, 2024 11:00 AM AMBULATORY - MEDICINE [facility] [place] [facility] Aug 22, 2024 01:00 PM AMBULATORY - MEDICINE [facility] [place] [facility] Aug 26, 2024 03:30 PM AMBULATORY - MEDICINE [place] [facility] Oct 17, 2024 01:00 PM AMBULATORY - MEDICINE [place] [facility] Oct 24, 2024 10:30 AM AMBULATORY - PSYCHIATRY [place] [facility] Oct 24, 2024 10:30 AM AMBULATORY [place]RY [place] [facility] Oct 29, 2024 08:30 AM [facility] Dec 12, 2024 10:30 AM AMBULATORY - MEDICINE [place] [facility] Active, Pending, and Scheduled Orders [...] 2024 09:12 PM Consult Order [facility]-UROLOGY Cons Rabbet Operator's Choice [facility] Lab Results: +/- 30 days of the [...] Range Comment Jul 25, 2024 11:45 AM [place] HEMOGLOBIN A1C PANEL Specimen Type: BLOOD Comment: [...] Jul 16, 2024 02:11 PM Reporting Lab: [place] [facility] [address] [facility] [address] Performing Lab: [facility] [address] [address] HEMOGLOBIN A1C 8.5 H 4.0-5.6 Jul 25, 2024 11:45 AM [place] TSH Specimen Type: SERUM No comment entered. Ordering Provider: MARIIA ABBOTT Report Released Date/Time: Jul 16, 2024 02:11 PM Reporting Lab: [address] [address] Performing Lab: [address] [address] TSH 2.04 u[IU]/mL 0.35-5.00 Jul 25, 2024 11:45 AM [place] LIPID PANEL FASTING Specimen Type: SERUM No comment entered. Ordering Provider: MARIIA ABBOTT Report Released Date/Time: Jul 16, 2024 02:11 PM Reporting Lab: [address] [address] Performing Lab: [address] [address] CHOLESTEROL 118 mg/dL TRIGLYCERIDE 77 mg/dL 0-150 LDL calculated 58 mg/dL 0-129 CHOL/HDL 2.6 HDL CHOLESTEROL 45 mg/dL 40-60 Jul 25, 2024 11:45 AM [place] LIVER FUNCTION Specimen Type: SERUM No comment entered. Ordering Provider: MARIIA ABBOTT Report Released Date/Time: Jul 16, 2024 02:11 PM Reporting Lab: [facility] [address] [address] Performing Lab: [facility] [address] [address] PROTEIN,TOTAL 6.8 g/dL 6.0-8.3 ALBUMIN 3.6 g/dL 3.5-5.0 ALKALINE PHOSPHATASE 71 U/L 40-150 AST 17 U/L 5-34 ALT 18 U/L BILIRUBIN, TOTAL 0.5 mg/dL 0.2-1.2 Jul 25, 2024 11:45 AM [place] BASIC METABOLIC PANEL (fasting) Specime n Type: SERUM No comment entered. Ordering Provider: MARIIA ABBOTT Report Released Date/Time: Jul 16, 2024 02:11 PM Reporting Lab: [place] [address] [address] Performing Lab: [address] [address] UREA NITROGEN 39 mg/dL H 7-25 GLUCOSE 239 mg/dL H 65-100 SODIUM 140 mmol/L 135-145 POTASSIUM 4.4 mmol/L 3.5-5.0 CHLORIDE 104 mmol/L 100-110 CO2 25 meq/L 20-30 CREATININE, Serum 1.03 mg/dL 0.50-1.40 eGFR(CKD-EPI 2020) 75 mL/min >60 Jul 25, 2024 11:45 AM [place] CBC AND DIFF (AUTO) Specimen Type: BLOOD No comment entered. Ordering Provider: MARIIA ABBOTT Report Released Date/Time: Jul 16, 2024 02:11 PM Reporting Lab: [address] [address] Performing Lab: [address] [address] WBC 6.11 10*3/uL 4.50-11.00 RBC 4.86 10*6/uL [...] 03, 2024 10:00 AM VA-TOBACCO NEVER USED [place] My-AppsR fruuxN Go Try It OnUSECaribou [employer] [facility] Tobacco Use History This section includes a history of the smoking, or tobacco-related health factors, that were collected on or before the date of the Encounter. The data comes from the [place] facility where the Encounter took place. Date/Time Smoking Status/Tobacco Use Comment F acility Dec 12, 2022 03:10 PM VA-TOBACCO NEVER USED [place] My-AppsR fruuxTRN [employer] GoodUSECar[employer] [facility] Encounter Notes: All associated encounter notes This section contains the clinical notes associated to the Encounter. Date/Time Encounter Note(s) Provider Source Aug 06, 2024 11:00 AM CARE COORDINATION HOME TELEHEALTH FOLLOW-UP NOTE: LOCAL TITLE: HT INTERVENTION NOTE STANDARD TITLE: CARE COORDINATION HOME TELEHEALTH FOLLOW-UP NOTE DATE OF NOTE: AUG 06, 2024@11:00 ENTRY DATE: AUG 06, 2024@11:00:30 AUTHOR: DENITA QUINTEROS EXP COSIGNER: URGENCY: STATUS: COMPLETED is actively enrolled in the Home Telehealth program. Identified by full name and . Review of data shows the following out of range responses: 11:01 (EST) - Alerts generated: blood pressure, heart rate (BP). Biometric data: weight is 177.0, 0.0 lbs from previous weight on 08/03/2024, blood pressure is 153/73 with a heart rate of 50 and Transmit date/time was 08/04/2024 at 23:09 (EST). Source: [employer]; [employer] Omn[employer]isor Pro System Measurements: GILL DELUNA (-4830) Vital Sign for: 07/08/2024 - 08/06/2024 (All times are EST; All weights are lbs) Primary DMP: VHA-HTN Comorbid(s): Summary Weight Sys BP Barnett BP HR High 177.0 195 130 106 Low 171.2 92 51 42 Average 174.0 143 76 71 Date Time Wt Time Sys Barntet Time HR ==== 08/05/2024 - 22:57 157/80 22:57 81 08/04/2024 23:07 177.0 23:07 153/73 23:07 50 08/03/2024 22:15 177.0 22:15 148/75 22:15 87 08/02/2024 - 22:06 144/73 22:06 54 08/02/2024 - 01:13 157/73 01:13 49 07/31/2024 - 22:50 132/71 22:50 88 07/31/2024 - 22:39 132/73 22:39 82 07/31/2024 21:22 176.2 21:21 144/84 21:21 85 07/30/2024 10:41 174.2 10:40 153/80 10:40 42 07/30/2024 03:24 175.4 03:23 142/66 03:23 66 07/29/2024 23:39 173.4 23:38 124/68 23:38 61 07/28/2024 - 20:58 169/76 20:58 48 07/28/2024 20:33 173.2 20:32 169/72 20:32 49 07/28/2024 - 00:57 144/67 00:57 44 07/27/2024 - 22:23 146/75 22:23 66 07/27/2024 - 20:35 166/72 20:35 60 07/27/2024 - 16:12 166/70 16:12 44 07/27/2024 - 15:28 149/67 15:28 46 07/27/2024 14:27 176.6 14:26 149/66 14:26 42 07/26/2024 10:40 171.2 - - 07/25/2024 23:35 [...] - 07/10/2024 10:27 172.8 - - Source: [employer]; General [employer]View[employer]r Pro System Assessment: 13:17 - Attempted to contact [place] to assess biometric data transmitted 08/04/2024; elevated BP low HR. Unable to contact . HIPAA compliant voice message left to 's listed phone number including this fiction and nonfiction prose writer's name and contact information, requesting return call. 13:45 - returned this fiction and nonfiction prose writer's call. identified by full name and . denies new or worsening chest pain/pressure/tightness/ congestion, shortness of breath/dyspnea on exertion, presyncope/syncope, nausea, jaw/neck/arm pain, palpitations, headache, vision changes, exercise intolerance, or unusual weakness/fatigue. reports feeling in usual state of health. reports taking all medications as prescribed. States he is aware of fluctuations in blood pressure and heart rate and feels the medications he is on and has tried in the past has not alleviated the problem. Discussed lifestyle habits that could contribute to blood pressure and heart rate. Discussed proper procedure/positioning in obtaining accurate vital signs data. verbalizes he is adhering to these recommendations. reports multiple recent and upcoming appointments related to clearance for eye procedure to be done in September. 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 Additionally reports periodic mid sternal chest pain that lasts approx 1 minute and resolves spontaneously. Reports repeat echo being scheduled. Reviewed with acute cardiac signs/symptoms to call 911 or seek emergency care - [place] confirms he is aware and will do so. Intervention(s)/Plan: Reviewed/educated signs/symtpoms hyper/hypotension and when to seek emergency care. Reviewed/educated signs/symptoms niru/tachycardia and when to seek emergency care. Reviewed/educated medications, purpose, dosing, timing, and possible side effects. Reviewed/educated impact of diet and exercise on blood pressure/heart rate and overall health. Reviewed/educated appropraite procedure/positioning in obtaining accurate vital signs data. verbalized understanding of above. Will continue to monitor using HT/RPM services and follow up as indicated. TYPE OF ENCOUNTER: Telephone Length of call: 7 minutes /simone/ DENITA QUINTEROS RN HOME TELEHEALTH POT MAKER Signed: 08/06/2024 11:11 DENITA QUINTEROS [place] [facility]
--- OUTSIDE RECORDS SUMMARY | 2024-08-21 23:35 | XMS_ITS | Encounter Summary ---
Author Name [facility] [place] Organization [place] Address [address] [place] [address] Care Team Providers Care Credit Balance Specialist Name Role Phone MARIIA BROUSSARD Primary [...] Patient's Relationship to Policy [employer] S[employer]IPTS ([id number]) PRESCRIPT ION [facility] Mar 11, 2018 [id number] MADAI DELUNA OTHER RELATIONSHIP [facility] PREFERRED PROVIDER ORGANIZAT ION (PPO) Jun 11, 2011 [id number] MADAI DELUNA PATIENT HUMANA [facility] (WNR) MEDICARE ADVANTAGE [facility] (WNR) Sep 11, 2022 [id number] [phone] GILL DELUNA PATIENT MEDICARE (WNR) MEDICARE (M) PART A January 10, 2012 PART A [id number] GILL DELUNA PATIENT MEDICARE (WNR) MEDICARE (M) PART B January 10, 2012 PART B [id number] [phone] GILL DELUNA PATIENT MEDICARE ([place]NR) MEDICARE (M) PART A January 10, 2012 PART A [id number] GILL DELUNA PATIENT UNICARE PREFERRED PROVIDER ORGANIZAT ION (PPO) [facility] INDE* * Mar 11, 2015 [id number] MADAI DELUNA SPOUSE [facility] (WNR) MEDICARE ADVANTAGE [facility] (WNR) Mar 11, 2021 [id number] GILL DELUNA PATIENT [facility] [facility] (WNR) MEDICARE ADVANTAGE [facility] (WNR) Sep 11, 2021 [id number] [phone] GILL DELUNA PATIENT Selected Encounter This section includes the information on record at [place] for the Encounter. Date/Time Encounter Type Encounter Description Reason Provider Source Aug 02, 2024 12:31 PM HC PRO PHONE CALL 5-10 MIN TELEPHONE/MEDICIN E ICD-10-CM I11.9 Hypertensive heart disease without heart failure ALCIRA LAYNE [place] Encounter Template Text not used by [place] Assessments - Encounter Diagnoses This section includes the primary and secondary diagnoses documented for the Encounter. Date/Time Primary/Secondary Diagnosis Diagnosis Name Provider Source Aug 02, 2024 12:31 PM PRIMARY Hypertensive heart disease without heart failure [facility] [place] [facility] Plan of Treatment: Future Appointments (+ 6 months) and Future Tests (+/- 45 days) The Plan of Treatment section includes future care activities for the patient from all [place] treatmentfacilities. This section includes future appointments and future orders which are active, pending or scheduled. Future Appointments This section includes appointments that were scheduled to occur 6 months from the date of the Encounter, up to a maximum of 20 appointments. The data comes from all [place] treatment facilities. Appointment Date/Time Appointment Type Appointme nt Facility Name Aug 16, 2024 11:00 AM AMBULATORY - MEDICINE [place] [place] [facility] Aug 22, 2024 01:00 PM AMBULATORY - MEDICINE [place] [facility] Aug 26, 2024 03:30 PM AMBULATORY - MEDICINE [place] [facility] Oct 17, 2024 01:00 PM AMBULATORY - MEDICINE [place] [facility] Oct 24, 2024 10:30 AM AMBULATORY - PSYCHIATRY [place] [facility] Oct 24, 2024 10:30 AM AMBULATORY - PS[place]IATRY [place] [facility] Oct 29, 2024 08:30 AM AMBULATORY - MEDICINE [place] [facility] Dec 12, 2024 10:30 AM AMBULATORY - MEDICINE [place] [facility] Active, Pending, and Scheduled Orders This section includes a listing of several types of active, pending, and scheduled orders, including clinic medications orders, diagnostic test orders, procedure orders and consult orders; where the start date of the order is 45 days before the date of the Encounter or 45 days after the date of theEncounter. The data comes from all [place] treatment facilities. Test Date/Time Test Type Test Details Facility Name Jul 16, 2024 09:12 PM Consult Order [facility] Cons Television [facility] [facility] Lab Results: +/- 30 days of the encounter This section includes the Chemistry and Hematology Lab Results on record with [place] for the patient. Radiology Reports and Pathology Reports are provided separately, in subsequent sections. Lab Results This section contains the Chemistry/Hematology Results that were resulted 30 days before or 30 daysafter the date of the Encounter. Date/Time Source Result Type Result - Unit Interpretation Reference Range Comment Jul 25, 2024 11:45 AM [facility] HEMOGLOBIN A1C PANEL Specimen Type: BLOOD Comment: [...] Jul 16, 2024 02:11 PM Reporting [facility]: [facility] [address] [address] Performing Lab: [address] [address] HEMOGLOBIN A1C 8.5 H 4.0-5.6 Jul 25, 2024 11:45 AM [facility] TSH Specimen Type: SERUM No comment entered. Ordering Provider: MARIIA ABBOTT Report Released Date/Time: Jul 16, 2024 02:11 PM Reporting Lab: [address] [address] Performing Lab: [address] [address] TSH 2.04 u[IU]/mL 0.35-5.00 Jul 25, 2024 11:45 AM [facility] LIPID PANEL FASTING Specimen Type: SERUM No comment entered. Ordering Provider: MARIIA ABBOTT Report Released Date/Time: Jul 16, 2024 02:11 PM Reporting Lab: [address] [address] Performing Lab: [address] [address] CHOLESTEROL 118 mg/dL TRIGLYCERIDE 77 mg/dL 0-150 LDL calculated 58 mg/dL 0-129 CHOL/HDL 2.6 HDL CHOLESTEROL 45 mg/dL 40-60 Jul 25, 2024 11:45 AM [facility] LIVER FUNCTION Specimen Type: SERUM No comment entered. Ordering Provider: MARIIA ABBOTT Report Released Date/Time: Jul 16, 2024 02:11 PM Reporting Lab: [address] [address] Performing Lab: [address] [address] PROTEIN,TOTAL 6.8 g/dL 6.0-8.3 ALBUMIN 3.6 g/dL 3.5-5.0 ALKALINE PHOSPHATASE 71 U/L 40-150 AST 17 U/L 5-34 ALT 18 U/L BILIRUBIN, TOTAL 0.5 mg/dL 0.2-1.2 Jul 25, 2024 11:45 AM [facility] BASIC METABOLIC PANEL (fasting) Specime n Type: SERUM No comment entered. Ordering Provider: MARIIA ABBOTT Report Released Date/Time: Jul 16, 2024 02:11 PM Reporting Lab: [address] [address] Performing Lab: [facility] [address] [address] UREA NITROGEN 39 mg/dL H 7-25 GLUCOSE 239 mg/dL H 65-100 SODIUM 140 mmol/L 135-145 POTASSIUM 4.4 mmol/L 3.5-5.0 CHLORIDE 104 mmol/L 100-110 CO2 25 meq/L 20-30 CREATININE, Serum 1.03 mg/dL 0.50-1.40 eGFR(CKD-EPI 2020) 75 mL/min >60 Jul 25, 2024 11:45 AM [facility] CBC AND DIFF (AUTO) Specimen Type: BLOOD No comment entered. Ordering Provider: MARIIA ABBOTT Report Released Date/Time: Jul 16, 2024 02:11 PM Reporting Lab: [address] [address] Performing Lab: [address] [address] WBC 6.11 10*3/uL 4.50-11.00 RBC 4.86 10*6/uL [...] and tobacco- related health factors from the [place] facility where the Encounter took place. Current Smoking Status This section includes the most current smoking, or tobacco-related health factor, from the [place] facility where the Encounter took place. Date/Time Current Smoking Status Comment Facil ity May 03, 2024 10:00 AM VA-TOBACCO NEVER USED [place] [employer] [facility] Tobacco Use History This section includes a history of the smoking, or tobacco-related health factors, that were collected on or before the date of the Encounter. The data comes from the [place] facility where the Encounter took place. Date/Time Smoking Status/Tobacco Use Comment F acility Dec 12, 2022 03:10 PM VA-TOBACCO NEVER USED [place] [employer] [facility] Encounter Notes: All associated encounter notes This section contains the clinical notes associated to the Encounter. Date/Time Encounter Note(s) Provider Source Aug 02, 2024 12:31 PM CARE COORDINATION HOME TELEHEALTH FOLLOW-UP NOTE: LOCAL TITLE: HT INTERVENTION NOTE STANDARD TITLE: CARE COORDINATION HOME TELEHEALTH FOLLOW-UP NOTE DATE OF NOTE: AUG 02, 2024@12:31 ENTRY DATE: AUG 02, 2024@12:31:05 AUTHOR: ALCIRA LAYNE EXP COSIGNER: URGENCY: STATUS: COMPLETED is actively enrolled in the Home Telehealth program. Review of data shows the following out of range responses: GILL DELUNA (-[id number]) Vital Sign for: 07/04/2024 - 08/02/2024 (All times are EST; All weights are lbs) Primary DMP: VHA-HTN Comorbid(s): Summary Weight Sys BP Barnett BP HR Pain High 176.6 195 130 106 Low 171.2 92 51 42 Average 173.7 142 76 71 Date Time Wt Time Sys Barnett Time HR Time Pain 08/02/2024 - 01:13 157/73 01:13 49 07/31/2024 [...] - 07/10/2024 10:27 172.8 - - Source: [facility] [facility] [employer]; [employer] Assessment: Hypertension Called ([place]ickory identified by full name and date of ) to review data and assess for any symptoms, changes, questions or concerns. reports he is feeling very well. denies headaches, dizziness, lightheadedness, changed vision, chest pain, shortness of breath, palpitations, racing of heart, unusual fatigue or weakness. He reports no changes with his medication regimen, denies skipped/missed doses. Hickory reports he is scheduled for physical exam for medical clearance for upcoming eye surgical procedure. denies any questions/concerns at this time. He reports he shut down and unplugged [employer] machine for a couple of days and feels some previously hypertensive readings were outliers . Intervention(s)/Plan: Reviewed/Educated of the following: Signs/symptoms of hypertension, risks, treatment, when and where to seek help (call provider vs. ). Normal blood pressure: less than 120/80 Target goal for blood pressure: less than 130/80 Call your provider's office if your systolic pressure (top number) is frequently over 130. Call your provider's office if your diastolic pressure (bottom number) is frequently over 80. Rest for at least 5-10 minutes prior to assessing your blood pressure. Remain still, try to remain calm and do not talk, eat or drink while using the monitor. Complete health check daily and as needed. Transmit all data to for review/monitoring. verbalized understanding of education and denied questions. Provider: This information is sent for your review and any further recommendations in regards to the Home Telehealth Plan of Care. Thank you! TYPE OF ENCOUNTER: Telephone Length of call: 5-10 minutes WHOLE HEALTH COACHING SKILLS Coaching or Motivational Interviewing skills used. /simone/ KAVITHA Albert, RN [facility]-Home Telehealth Fire Protection Engineer Signed: 08/02/2024 12:37 ALCIRA LAYNE [facility]
--- OUTSIDE RECORDS SUMMARY | 2024-08-21 23:35 | XMS_ITS | Encounter Summary ---
Author Name [place] Address [address] [place] [address] Care Team Providers Care Lumber Bearer Name Role Phone MARIIA BROUSSARD Primary Care [...] Patient's Relationship to Policy [employer] EXPRESS SCRIPTS ([id number]) PRESCRIPT ION [facility] Mar 11, 2018 [id number] MADAI DELUNA OTHER RELATIONSHIP [facility] PREFERRED PROVIDER ORGANIZAT ION (PPO) Jun 11, 2011 [id number] MADAI DELUNA PATIENT HUMANA [facility] (WNR) MEDICARE ADVANTAGE [facility] (WNR) Sep 11, 2022 [id number] [phone] GILL DELUNA PATIENT MEDICARE (WNR) MEDICARE (M) PART A January 10, 2012 PART A [id number] GILL DELUNA PATIENT MEDICARE (WNR) MEDICARE (M) PART B January 10, 2012 PART B [id number] GILL DELUNA PATIENT MEDICARE (WNR) MEDICARE (M) PART A January 10, 2012 PART A [id number] GILL DELUNA PATIENT UNICARE PREFERRED PROVIDER ORGANIZAT KIANNA (PPO) [facility]* * Mar 11, 2015 [id number] MADAI DELUNA SPOUSE [facility] (WNR) MEDICARE ADVANTAGE [facility] (WNR) Mar 11, 2021 [id number] GILL DELUNA PATIENT WELLCARE [facility] (WNR) MEDICARE ADVANTAGE [facility] (WNR) Sep 11, 2021 [id number] GILL DELUNA PATIENT Selected Encounter This section includes the information on record at [place] for the Encounter. Date/Time Encounter Type Encounter Description Reason Pro vider Source Aug 19, 2024 03:10 PM Outpatient Encounter TELEPHONE PRIMARY CARE IHE [...] Appointment Type Appointme nt Facility Name Aug 22, 2024 01:00 PM AMBULATORY - MEDICINE [place] [place] [facility] Aug 26, 2024 03:30 PM AMBULATORY - MEDICINE [place] [facility] Oct 17, 2024 01:00 PM AMBULATORY - MEDICINE [place] [facility] Oct 24, 2024 10:30 AM AMBULATORY - PSYCHIATRY [place] [facility] Oct 24, 2024 10:30 AM AMBULATORY - [place]ATRY [place] [facility] Oct 29, 2024 08:30 AM AMBULATORY - MEDICINE [facility] [facility] Dec 12, 2024 10:30 AM AMBULATORY - MEDICINE [place] [facility] [...] of theEncounter. The data comes from all [place] treatment facilities. Test Date/Time Test Type Test Details Facility Name Jul 16, 2024 09:12 PM Consult Order [facility]-UROLOGY Cons [employer] [facility] Lab Results: +/- 30 days of the [...] Range Comment Jul 25, 2024 11:45 AM [facility] HEMOGLOBIN A1C PANEL Specimen Type: BLOOD Comment: [...] Reporting Lab: [facility] [place] [facility] [address] [address] Performing Lab: [address] [address] HEMOGLOBIN A1C 8.5 H 4.0-5.6 Jul 25, 2024 11:45 AM [facility] TSH Specimen Type: SERUM No comment entered. Ordering Provider: MARIIA ABBOTT Report Released Date/Time: Jul 16, 2024 02:11 PM Reporting Lab: [facility] [address] [facility] [address] Performing Lab: [address] [address] TSH 2.04 u[IU]/mL 0.35-5.00 Jul 25, 2024 11:45 AM [facility] LIPID PANEL FASTING Specimen Type: SERUM No comment entered. Ordering Provider: MARIIA ABBOTT Report Released Date/Time: Jul 16, 2024 02:11 PM Reporting Lab: [address] [address] Performing Lab: [address] [address] CHOLESTEROL 118 mg/dL TRIGLYCERIDE 77 mg/dL 0-150 LDL calculated 58 mg/dL 0-129 CHOL/HDL 2.6 HDL CHOLESTEROL 45 mg/dL 40-60 Jul 25, 2024 11:45 AM [facility] LIVER FUNCTION Specimen Type: SERUM No comment entered. Ordering Provider: MARIIA ABBOTT Report Released Date/Time: Jul 16, 2024 02:11 PM Reporting Lab: [address] [address] Performing Lab: [address] [address] PROTEIN,TOTAL 6.8 g/dL 6.0-8.3 ALBUMIN 3.6 g/dL 3.5-5.0 ALKALINE PHOSPHATASE 71 U/L 40-150 AST 17 U/L 5-34 ALT 18 U/L BILIRUBIN, TOTAL 0.5 mg/dL 0.2-1.2 Jul 25, 2024 11:45 AM [facility] BASIC METABOLIC PANEL (fasting) Specime n Type: SERUM No comment entered. Ordering Provider: MARIIA ABBOTT Report Released Date/Time: Jul 16, 2024 02:11 PM Reporting Lab: [address] [address] Performing Lab: [address] [address] UREA NITROGEN 39 mg/dL H 7-25 GLUCOSE 239 mg/dL H 65-100 SODIUM 140 mmol/L 135-145 POTASSIUM 4.4 mmol/L 3.5-5.0 CHLORIDE 104 mmol/L 100-110 CO2 25 meq/L 20-30 CREATININE, Serum 1.03 mg/dL 0.50-1.40 eGFR(CKD-EPI 2020) 75 mL/min >60 Jul 25, 2024 11:45 AM [facility] CBC AND DIFF (AUTO) Specimen Type: BLOOD No comment entered. Ordering Provider: MARIIA ABBOTT Report Released Date/Time: Jul 16, 2024 02:11 PM Reporting Lab: [facility] [address] [address] Performing Lab: [facility] [address] [address] WBC 6.11 10*3/uL 4.50-11.00 RBC 4.86 10*6/uL [...] 03, 2024 10:00 AM [facility]TOBACCO [facility] [place] [facility] Tobacco Use History This section includes a history of the smoking, or tobacco-related health factors, that were collected on or before the date of the Encounter. The data comes from the [place] facility where the Encounter took place. Date/Time Smoking Status/Tobacco Use Comment F acility Dec 12, 2022 03:10 PM VA-TOBACCO NEVER USED [place] CNTR [place] [facility] Encounter Notes: All associated encounter notes This section contains the clinical notes associated to the Encounter. Date/Time Encounter Note(s) Provider Source Aug 19, 2024 03:15 PM CARE COORDINATION HOME TELEHEALTH NOTE: LOCAL TITLE: HT NOTE STANDARD TITLE: CARE COORDINATION HOME TELEHEALTH NOTE DATE OF NOTE: AUG 19, 2024@15:15 ENTRY DATE: AUG 19, 2024@15:15:20 AUTHOR: ZEINA WILD EXP COSIGNER: URGENCY: STATUS: COMPLETED is actively enrolled in the Home Telehealth program. Review of data shows the following out of range responses: GILL DELUNA (-3430) Vital Sign for: 07/21/2024 - 08/19/2024 (All times are EST; All weights are lbs) Primary DMP: VHA-HTN Comorbid(s): Summary Weight Sys BP Barnett BP HR Pain High 178.8 169 84 95 Low 170.4 116 59 42 Average 175.0 149 72 59 Date Time Wt Time Sys Barnett Time HR Time Pain 08/18/2024 23:48 170.4 23:47 161/75 23:47 45 08/18/2024 21:30 170.6 21:29 156/67 21:29 46 08/16/2024 - 23:39 164/79 23:39 44 08/16/2024 14:24 176.4 14:23 123/63 14:23 52 08/15/2024 23:36 177.0 23:35 155/67 23:35 46 08/14/2024 - 23:37 150/64 23:37 50 08/14/2024 19:18 175.6 19:17 148/62 19:17 83 08/13/2024 - 21:11 116/59 21:11 46 08/13/2024 20:09 176.0 20:09 149/75 20:09 51 08/12/2024 - 23:50 149/74 23:50 83 08/12/2024 23:05 175.8 23:04 148/80 23:04 48 08/12/2024 06:22 172.4 06:21 147/84 06:21 95 08/11/2024 21:04 175.2 21:03 156/80 21:03 71 08/09/2024 23:41 178.8 23:40 156/70 23:40 48 08/06/2024 23:10 177.6 23:09 138/70 23:09 54 08/05/2024 - 22:57 157/80 22:57 81 08/04/2024 [...] - - 07/25/2024 23:35 175.0 - - Source: [employer]; [employer] Attempted call to [place] to review readings, BP above goal with continued low HR readings. Past few days of VS recordings with HR in the 40. No answer. [facility] has a PCP appt on 08/22. Forward updates to PCP for review. /simone/ ZEINA TREVINO MSN, RN, CNL [facility]-HOME TELEHEALTH Signed: 08/19/2024 15:18 Receipt Acknowledged By: * AWAITING SIGNATURE * ZORAN BROUSSARD SHAYNA ALEXIS [place] [facility]
--- OUTSIDE RECORDS SUMMARY | 2024-08-21 23:35 | XMS_ITS | Encounter Summary ---
Author Name [place] Organization [place] Address [address] [place] [address] Care Team Providers Care Station Installer Name Role Phone MARIIA BROUSSARD Primary Care [...] Patient's Relationship to Policy Mancera EXPRESS SCRIPTS ([id number]) PRESCRIPT ION [facility] Mar 11, 2018 [id number] MADAI DELUNA OTHER RELATIONSHIP [facility] PREFERRED PROVIDER ORGANIZAT ION (PPO) Jun 11, 2011 [id number] MADAI DELUNA PATIENT HUMANA [facility] (WNR) MEDICARE ADVANTAGE [facility] (WNR) Sep 11, 2022 [id number] [phone] GILL DELUNA PATIENT MEDICARE (WNR) MEDICARE (M) PART A January 10, 2012 PART A [id number] GILL DELUNA PATIENT MEDICARE (WNR) MEDICARE (M) PART B January 10, 2012 PART B [id number] [phone] GILL DELUNA PATIENT MEDICARE (WNR) MEDICARE (M) PART A January 10, 2012 PART A [id number] [phone] GILL DELUNA PATIENT UNICARE PREFERRED PROVIDER ORGANIZAT ION (PPO) [place] RE STATE INDE* * Mar 11, 2015 [id number] MADAI DELUNA [facility] (WNR) MEDICARE ADVANTAGE [facility] (WNR) Mar 11, 2021 [id number] GILL DELUNA PATIENT [facility] (WNR) MEDICARE ADVANTAGE [facility] (WNR) Sep 11, 2021 [id number] GILL DELUNA PATIENT Selected Encounter This section includes the information on record at [place] for the Encounter. Date/Time Encounter Type Encounter Description Reason Pro vider Source Aug 14, 2024 02:39 PM Outpatient Encounter ADMIN PAT ACTIVTIES (MASNONCT) IHE Encounter Template Text not used by [place] Plan of Treatment: Future Appointments (+ 6 [...] 16, 2024 11:00 AM AMBULATORY - [place]ICINE [place] [facility] Aug 22, 2024 01:00 PM AMBULATORY - MEDICINE [place] [facility] Aug 26, 2024 03:30 PM AMBULATORY - MEDICINE [place] [facility] Oct 17, 2024 01:00 PM AMBULATORY - MEDICINE [place] [facility] Oct 24, 2024 10:30 AM AMBULATORY - PSYCHIATRY [place] [facility] Oct 24, 2024 10:30 AM AMBULATORY - [place]RY [place] [facility] Oct 29, 2024 08:30 AM AMBULATORY - MEDICINE [place] [facility] Dec 12, 2024 10:30 AM [facility] Active, Pending, and Scheduled Orders This section includes a listing of several types of active, pending, and scheduled orders, including clinic medications orders, diagnostic test orders, procedure orders and consult orders; where the start date of the order is 45 days before the date of the Encounter or 45 days after the date of theEncounter. The data comes from all [place] treatment facilities. Test Date/Time Test Type Test Details Facility Name Jul 16, 2024 09:12 PM Consult Order [facility] Cons Solar Installer Pv's Choice [facility] Lab Results: +/- 30 days of the [...] Range Comment Jul 25, 2024 11:45 AM [facility] HEMOGLOBIN A1C PANEL Specimen Type: BLOOD Comment: [...] Jul 16, 2024 02:11 PM Reporting Lab: [facility] [address] [facility] [address] Performing Lab: [facility] [address] [facility] [address] HEMOGLOBIN A1C 8.5 H 4.0-5.6 Jul 25, 2024 11:45 AM [facility] TSH Specimen Type: SERUM No comment entered. Ordering Provider: MARIIA ABBOTT Report Released Date/Time: Jul 16, 2024 02:11 PM Reporting Lab: [facility] [address] [facility] [address] Performing Lab: [facility] [address] [facility] [address] TSH 2.04 u[IU]/mL 0.35-5.00 Jul 25, 2024 11:45 AM [facility] LIPID PANEL FASTING Specimen Type: SERUM No comment entered. Ordering Provider: MARIIA ABBOTT Report Released Date/Time: Jul 16, 2024 02:11 PM Reporting Lab: [address] [address] Performing Lab: [address] [address] CHOLESTEROL 118 mg/dL TRIGLYCERIDE 77 mg/dL 0-150 LDL calculated 58 mg/dL 0-129 CHOL/HDL 2.6 HDL CHOLESTEROL 45 mg/dL 40-60 Jul 25, 2024 11:45 AM [facility] LIVER FUNCTION Specimen Type: SERUM No comment entered. Ordering Provider: MARIIA ABBOTT Report Released Date/Time: Jul 16, 2024 02:11 PM Reporting Lab: [address] [address] Performing Lab: [address] [address] PROTEIN,TOTAL 6.8 g/dL 6.0-8.3 ALBUMIN 3.6 g/dL 3.5-5.0 ALKALINE PHOSPHATASE 71 U/L 40-150 AST 17 U/L 5-34 ALT 18 U/L BILIRUBIN, TOTAL 0.5 mg/dL 0.2-1.2 Jul 25, 2024 11:45 AM [facility] BASIC METABOLIC PANEL (fasting) Specime n Type: SERUM No comment entered. Ordering Provider: MARIIA ABBOTT Report Released Date/Time: Jul 16, 2024 02:11 PM Reporting Lab: [address] [address] Performing Lab: [facility] [address] [address] UREA NITROGEN 39 mg/dL H 7-25 GLUCOSE 239 mg/dL H 65-100 SODIUM 140 mmol/L 135-145 POTASSIUM 4.4 mmol/L 3.5-5.0 CHLORIDE 104 mmol/L 100-110 CO2 25 meq/L 20-30 CREATININE, Serum 1.03 mg/dL 0.50-1.40 eGFR(CKD-EPI 2020) 75 mL/min >60 Jul 25, 2024 11:45 AM [facility] CBC AND DIFF (AUTO) Specimen Type: BLOOD No comment entered. Ordering Provider: MARIIA ABBOTT Report Released Date/Time: Jul 16, 2024 02:11 PM Reporting Lab: [facility] [address] [address] Performing Lab: [facility] [address] [facility] [address] WBC 6.11 10*3/uL 4.50-11.00 RBC 4.86 10*6/uL [...] 03, 2024 10:00 AM VA-TOBACCO NEVER USED [facility] Tobacco Use History This section includes [...] Encounter. Date/Time Encounter Note(s) Provider Source Aug 14, 2024 02:39 PM TELEPHONE ENCOUNTE R NOTE: LOCAL TITLE: TELEHEALTH TELEPHONE NOTE STANDARD TITLE: TELEPHONE ENCOUNTER NOTE DATE OF NOTE: AUG 14, 2024@14:39 ENTRY DATE: AUG 14, 2024@14:39:33 AUTHOR: ARUNA LUEVANO COSIGNER: URGENCY: STATUS: COMPLETED TELEHEALTH TELEPHONE NOTE Has ADDENDA MENTAL HEALTH TELEPHONE NOTE: Date/time: 08/14/24 @ 14:39 Total contact time: 2 minutes Summary of Contact: was contact by copy writer who works as a part of the [facility] Clinical Resource Hub at the [facility] providing mental health services to Veterans in the [facility] to offer [place] the opportunity to be seen for sooner care virtually by a [facility] provider for mental health medication management/psychiatry. did not answer the phone and a HIPAA compliant message was left requesting a return call to this copy writer. Plan: Additional outreach efforts will be made to offer [place] sooner psychiatric medication management appointment through the [facility] 1 [facility]. /simone/ ARUNA LUEVANO PsyD Chief, Mental Health, [address] Signed: 08/14/2024 14:39 08/15/2024 ADDENDUM STATUS: COMPLETED MENTAL HEALTH TELEPHONE NOTE: Date/time: 08/15/24 @ 10:05 Total contact time: 5 minutes Summary of Contact: Second contact attempt. was contact by copy writer who works as a part of the [facility] Clinical Resource Hub at the [facility] providing mental health services to Veterans in the [facility]. As a part of this contact, was offered the opportunity to be seen for sooner care virtually by a [facility] provider for mental health medication management/psychiatry. Options were reviewed with the who consented to referral to [facility] psychiatry. Maryellen has access to the necessary equipment for engagement in virtual care and has previously used the [place] [employer] platform succesfully. Due to the limited nature of this telephone contact, a full mental health status and risk assessment were not completed as a part of this contact. [place] did not report or give indications of being in acute distress or crisis that would suggest the need for additional same-day intervention. Plan: Pending psychiatric medication management consult will be forwarded to the [address] to connect [place] with care. /simone/ ARUNA LUEVANO PsyD Chief, Mental Health, [address] Signed: 08/15/2024 10:12 ARUNA LUEVANO [place] [facility]
--- OUTSIDE RECORDS SUMMARY | 2024-08-21 23:35 | XMS_ITS | Encounter Summary ---
Author Name [place] Address [address] [place] [address] Care Team Providers Care Dental Assistant Medical Assistant Name Role Phone MARIIA BROUSSARD Primary Care [...] Patient's Relationship to Policy Mancera EXPRESS SCRIPTS ([id number]) PRESCRIPT ION [facility] Mar 11, 2018 [id number] MADAI DELUNA OTHER RELATIONSHIP [facility] PREFERRED PROVIDER ORGANIZAT ION (PPO) Jun 11, 2011 [id number] MADAI DELUNA PATIENT HUMANA [facility] (WNR) MEDICARE ADVANTAGE [facility] (WNR) Sep 11, 2022 [id number] [phone] MIKIEGILL PATIENT MEDICARE (WNR) MEDICARE (M) PART A January 10, 2012 PART A [id number] MIKIE GILL PATIENT MEDICARE (WNR) MEDICARE (M) PART B January 10, 2012 PART B [id number] [phone] MIKIE GILL PATIENT MEDICARE (WNR) MEDICARE (M) PART A January 10, 2012 PART A [id number] GILL DELUNA PATIENT UNICARE PREFERRED PROVIDER ORGANIZAT ION (PPO) [facility]* * Mar 11, 2015 [id number] MADAI DELUNA [facility] (WNR) MEDICARE ADVANTAGE [facility] (WNR) Mar 11, 2021 [id number] GILL DELUNA PATIENT WELLCARE [facility] (WNR) MEDICARE ADVANTAGE [facility] (WNR) Sep 11, 2021 [id number] [phone] GILL DELUNA PATIENT Selected Encounter This section includes the information on record at [place] for the Encounter. Date/Time Encounter Type Encounter Description Reason Pro vider Source Aug 16, 2024 12:52 PM Outpatient Encounter CLINICAL PHARMACY IHE Encounter Template Text not used by [place] Plan of Treatment: Future Appointments (+ 6 [...] 22, 2024 01:00 PM AMBULATORY - MEDICINE [place] [facility] Aug 26, 2024 03:30 PM AMBULATORY - MEDICINE [place] [facility] Oct 17, 2024 01:00 PM AMBULATORY - MEDICINE [place] [facility] Oct 24, 2024 10:30 AM AMBULATORY - PSYCHIATRY [place] [facility] Oct 24, 2024 10:30 AM AMBULATORY - [place]ATRY [place] [facility] Oct 29, 2024 08:30 AM AMBULATORY - MED[facility] Dec 12, 2024 10:30 AM AMBULATORY - MEDICINE [facility] [place] [place] [facility] Active, Pending, and Scheduled Orders This section includes a listing of several types of active, pending, and scheduled orders, including clinic medications orders, diagnostic test orders, procedure orders and consult orders; where the start date of the order is 45 days before the date of the Encounter or 45 days after the date of theEncounter. The data comes from all [place] treatment facilities. Test Date/Time Test Type Test Details Facility Name Jul 16, 2024 09:12 PM Consult Order [facility] Cons Phlebotomy Technologist's Choice [facility] Lab Results: +/- 30 days of the [...] Range Comment Jul 25, 2024 11:45 AM [place] HEMOGLOBIN A1C PANEL Specimen Type: BLOOD Comment: [...] Jul 16, 2024 02:11 PM Reporting Lab: [facility] [address] [address] Performing Lab: [address] [address] HEMOGLOBIN A1C 8.5 H 4.0-5.6 Jul 25, 2024 11:45 AM [place] TSH Specimen Type: SERUM No comment entered. Ordering Provider: MARIIA ABBOTT Report Released Date/Time: Jul 16, 2024 02:11 PM Reporting Lab: [facility] [address] Performing Lab: [address] [address] TSH 2.04 u[IU]/mL 0.35-5.00 Jul 25, 2024 11:45 AM [place] LIPID PANEL FASTING Specimen Type: SERUM No comment entered. Ordering Provider: MARIIA ABBOTT Report Released Date/Time: Jul 16, 2024 02:11 PM Reporting Lab: [address] [address] Performing Lab: [address] [address] CHOLESTEROL 118 mg/dL TRIGLYCERIDE 77 mg/dL 0-150 LDL calculated 58 mg/dL 0-129 CHOL/HDL 2.6 HDL CHOLESTEROL 45 mg/dL 40-60 Jul 25, 2024 11:45 AM [place] LIVER FUNCTION Specimen Type: SERUM No comment entered. Ordering Provider: MARIIA ABBOTT Report Released Date/Time: Jul 16, 2024 02:11 PM Reporting Lab: [address] [address] Performing Lab: [address] [address] PROTEIN,TOTAL 6.8 g/dL 6.0-8.3 ALBUMIN 3.6 g/dL 3.5-5.0 ALKALINE PHOSPHATASE 71 U/L 40-150 AST 17 U/L 5-34 ALT 18 U/L BILIRUBIN, TOTAL 0.5 mg/dL 0.2-1.2 Jul 25, 2024 11:45 AM [place] BASIC METABOLIC PANEL (fasting) Specime n Type: SERUM No comment entered. Ordering Provider: MARIIA ABBOTT Report Released Date/Time: Jul 16, 2024 02:11 PM Reporting Lab: [address] [address] Performing Lab: [address] [address] UREA NITROGEN 39 mg/dL H 7-25 GLUCOSE 239 mg/dL H 65-100 SODIUM 140 mmol/L 135-145 POTASSIUM 4.4 mmol/L 3.5-5.0 CHLORIDE 104 mmol/L 100-110 CO2 25 meq/L 20-30 CREATININE, Serum 1.03 mg/dL 0.50-1.40 eGFR(CKD-EPI 2020) 75 mL/min >60 Jul 25, 2024 11:45 AM [place] CBC AND DIFF (AUTO) Specimen Type: BLOOD No comment entered. Ordering Provider: MARIIA ABBOTT Report Released Date/Time: Jul 16, 2024 02:11 PM Reporting Lab: [facility] [address] [address] Performing Lab: [facility] [address] [address] WBC 6.11 10*3/uL 4.50-11.00 RBC 4.86 10*6/uL [...] 03, 2024 10:00 AM VA-TOBACCO NEVER USED [place] [facility] Tobacco Use History This section includes a history of the smoking, or tobacco-related health factors, that were collected on or before the date of the Encounter. The data comes from the [place] facility where the Encounter took place. Date/Time Smoking Status/Tobacco Use Comment F acility Dec 12, 2022 03:10 PM VA-TOBACCO NEVER USED [place] [facility] Encounter Notes: All associated encounter notes This section contains the clinical notes associated to the Encounter. Date/Time Encounter Note(s) Provider Source Aug 16, 2024 12:53 PM DIABETOLOGY NOTE: LOCAL TITLE: INSULIN PUMP/CGM DOWNLOAD (T) STANDARD TITLE: DIABETOLOGY NOTE DATE OF NOTE: AUG 16, 2024@12:53 ENTRY DATE: AUG 16, 2024@12:53:05 AUTHOR: LUX ARMSTRONG EXP COSIGNER: URGENCY: STATUS: COMPLETED Please select: Personal Continuous Glucose Monitor- DEXCOM G7 Date of Documentation:Aug Please see attached scanned document in [facility] [facility]. /simone/ LUX ARMSTRONG CLINICAL PROGRAM DIRECTOR GROUP WORK Signed: 08/16/2024 12:53 LUX ARMSTRONG [place]
--- OUTSIDE RECORDS SUMMARY | 2024-08-21 23:35 | XMS_ITS ---
Author Name Department of [place] Address [address] [place] [address] Care Team Providers Care Office Services Specialist Name Role Phone MARIIA BROUSSARD Primary [...] Patient's Relationship to Policy Mancera EXPRESS SCRIPTS ([id number]) PRESCRIPT ION [facility] Mar 11, 2018 [id number] [phone] MADAI DELUNA OTHER RELATIONSHIP [facility] PREFERRED PROVIDER ORGANIZAT ION (PPO) Jun 11, 2011 [id number] [phone] MADAI DELUNA PATIENT HUMANA [facility] (WNR) MEDICARE ADVANTAGE [facility] (WNR) Sep 11, 2022 [id number] MIKIEGILL PATIENT MEDICARE (WNR) MEDICARE (M) PART A January 10, 2012 PART A [id number] [phone] MIKIE GILL PATIENT MEDICARE (WNR) MEDICARE (M) PART B January 10, 2012 PART B [id number] GILL DELUNA PATIENT MEDICARE (WNR) MEDICARE (M) PART A January 10, 2012 PART A [id number] GILL DELUNA PATIENT UNICARE PREFERRED PROVIDER ORGANIZAT ION (PPO) UNICLyric RE STATE INDE* * Mar 11, 2015 [id number] MADAI DELUNA [facility] (WNR) MEDICARE ADVANTAGE [facility] (WNR) Mar 11, 2021 [id number] GILL DELUNA PATIENT WELLCARE [facility] (WNR) MEDICARE ADVANTAGE [facility] (WNR) Sep 11, 2021 [id number] GILL DELUNA PATIENT Selected Encounter This section includes the information on record at [place] for the Encounter. Date/Time Encounter Type Encounter Description Reason Pro vider Source Aug 19, 2024 01:23 PM Outpatient Encounter PRIMARY CARE/MEDICINE IHE Encounter Template Text not used by [place] Plan of Treatment: Future Appointments (+ 6 months) and Future Tests (+/- 45 days) The Plan of Treatment section includes future care activities for the patient from all [place] treatmentfacilities. This section includes future appointments and future orders which are active, pending or scheduled. Future Appointments This section includes appointments that were scheduled to occur 6 months from the date of the Encounter, up to a maximum of 20 appointments. The data comes from all [place] treatment facilities. Appointment Date/Time Appointment Type Appointme nt Facility Name Aug 22, 2024 01:00 PM AMBULATORY - MEDICINE [place] [facility] Aug 26, 2024 03:30 PM AMBULATORY - MEDICINE [place] [facility] Oct 17, 2024 01:00 PM AMBULATORY - MEDICINE [place] [facility] Oct 24, 2024 10:30 AM AMBULATORY - PSYCHIATRY [place] [facility] Oct 24, 2024 10:30 AM AMBULATORY - [place] [facility] Oct 29, 2024 08:30 AM AMBULATORY - MEDICINE [place] [facility] Dec 12, 2024 10:30 AM AMBULATORY - MEDICINE [place] [facility] Active, Pending, and Scheduled Orders This section includes a listing of several types of active, pending, and scheduled orders, including clinic medications orders, diagnostic test orders, procedure orders and consult orders; where the start date of the order is 45 days before the date of the Encounter or 45 days after the date of theEncounter. The data comes from all [place] treatment facilities. Test Date/Time Test Type Test Details Facility Name Jul 16, 2024 09:12 PM Consult Order [facility] Cons Insurance Verification Representative's Choice [facility] Lab Results: +/- 30 days of the encounter This section includes the Chemistry and Hematology Lab Results on record with [place] for the patient. Radiology Reports and Pathology Reports are provided separately, in subsequent sections. Lab Results This section contains the Chemistry/Hematology Results that were resulted 30 days before or 30 daysafter the date of the Encounter. Date/Time Source Result Type Result - Unit Interpretation Reference Range Comment Jul 25, 2024 11:45 AM [facility] HEMOGLOBIN A1C PANEL Specimen Type: BLOOD Comment: [...] Jul 16, 2024 02:11 PM Reporting Lab: [facility] [address] [address] Performing Lab: [address] [address] HEMOGLOBIN A1C 8.5 H 4.0-5.6 Jul 25, 2024 11:45 AM [facility] TSH Specimen Type: SERUM No comment entered. Ordering Provider: MARIIA ABBOTT Report Released Date/Time: Jul 16, 2024 02:11 PM Reporting [facility] [address] [facility] [address] Performing Lab: [facility] [address] [address] TSH 2.04 u[IU]/mL 0.35-5.00 Jul 25, 2024 11:45 AM [facility] LIPID PANEL FASTING Specimen Type: SERUM No comment entered. Ordering Provider: MARIIA ABBOTT Report Released Date/Time: Jul 16, 2024 02:11 PM Reporting Lab: [address] [address] Performing Lab: [address] [address] CHOLESTEROL 118 mg/dL TRIGLYCERIDE 77 mg/dL 0-150 LDL calculated 58 mg/dL 0-129 CHOL/HDL 2.6 HDL CHOLESTEROL 45 mg/dL 40-60 Jul 25, 2024 11:45 AM [facility] LIVER FUNCTION Specimen Type: SERUM No comment entered. Ordering Provider: MARIIA ABBOTT Report Released Date/Time: Jul 16, 2024 02:11 PM Reporting Lab: [address] [address] Performing Lab: [address] [address] PROTEIN,TOTAL 6.8 g/dL 6.0-8.3 ALBUMIN 3.6 g/dL 3.5-5.0 ALKALINE PHOSPHATASE 71 U/L 40-150 AST 17 U/L 5-34 ALT 18 U/L BILIRUBIN, TOTAL 0.5 mg/dL 0.2-1.2 Jul 25, 2024 11:45 AM [facility] BASIC METABOLIC PANEL (fasting) Specime n Type: SERUM No comment entered. Ordering Provider: MARIIA ABBOTT Report Released Date/Time: Jul 16, 2024 02:11 PM Reporting Lab: [address] [address] Performing Lab: [address] [address] UREA NITROGEN 39 mg/dL H 7-25 GLUCOSE 239 mg/dL H 65-100 SODIUM 140 mmol/L 135-145 POTASSIUM 4.4 mmol/L 3.5-5.0 CHLORIDE 104 mmol/L 100-110 CO2 25 meq/L 20-30 CREATININE, Serum 1.03 mg/dL 0.50-1.40 eGFR(CKD-EPI 2020) 75 mL/min >60 Jul 25, 2024 11:45 AM [facility] CBC AND DIFF (AUTO) Specimen Type: BLOOD No comment entered. Ordering Provider: MARIIA ABBOTT Report Released Date/Time: Jul 16, 2024 02:11 PM Reporting [facility] [address] [facility] [address] Performing [facility]: [facility] [address] [facility] [address] WBC 6.11 10*3/uL 4.50-11.00 RBC 4.86 10*6/uL [...] and tobacco- related health factors from the [place] facility where the Encounter took place. Current Smoking Status This section includes the most current smoking, or tobacco-related health factor, from the [place] facility where the Encounter took place. Date/Time Current Smoking Status Comment Facil ity May 03, 2024 10:00 AM VA-TOBACCO [facility]ED [facility] Tobacco Use History This section includes a history of the smoking, or tobacco-related health factors, that were collected on or before the date of the Encounter. The data comes from the [place] facility where the Encounter took place. Date/Time Smoking Status/Tobacco Use Comment F acility Dec 12, 2022 03:10 PM VA-TOBACCO NEVER USED [facility] Encounter Notes: All associated encounter notes This section contains the clinical notes associated to the Encounter. Date/Time Encounter Note(s) Provider Source Aug 19, 2024 01:23 PM PRIMARY CARE TELEP JANE ENCOUNTER NOTE: LOCAL TITLE: TELEPHONE NOTE/PRIMARY CARE STANDARD TITLE: PRIMARY CARE TELEPHONE ENCOUNTER NOTE DATE OF NOTE: AUG 19, 2024@13:23 ENTRY DATE: AUG 19, 2024@13:23:40 AUTHOR: KEILY HOUGH EXP COSIGNER: URGENCY: STATUS: COMPLETED This is a reminder call for your upcoming PCP appt with MARIIA BROUSSARD and the need for a lab appointment for bloodwork prior to your upcoming appt. Fasting blood work NON fasting blood work NO BLOODWORK needed for appt Bloodwork already completed Action taken: [X] Called , left voice message Aug [ ] Called , unable to leave voice mail [ ] Spoke to /primary care physician to remind them of upcoming appt/bloodwork Upcoming Appointments: 08/22/2024 13:00 CWM/SO/PACT 10 08/26/2024 15:30 NHM/OPTOMETRY/BORASKI 10/17/2024 13:00 CWM/SO/PHARM/PACT 2 10/24/2024 10:30 CWM-V01 ADM [facility] MH-16 10/29/2024 08:30 CWM/SO/PODIATRY/ROSS 12/12/2024 10:30 CWM/NO/DERMATOLOGY CLASSIFICATION AND TREATMENT DIRECTOR AM /es/ KEILY HOUGH [employer] Signed: 08/19/2024 13:25 KEILY HOUGH
--- OUTSIDE RECORDS SUMMARY | 2024-08-21 23:35 | XMS_ITS | Encounter Summary ---
Author Name [facility] [place] Organization [facility] [place] Address [address] [place] [address] Care Team Providers Care Senior Account Manager Name Role Phone MARIIA BROUSSARD [...] Patient's Relationship to Policy [employer] ([id number]) PRESCRIPT ION [facility] Mar 11, 2018 [id number] [phone] MADAI DELUNA OTHER RELATIONSHIP [facility] PREFERRED PROVIDER ORGANIZAT ION (PPO) Jun 11, 2011 [id number] [phone] MADAI DELUNA PATIENT [facility] (WNR) MEDICARE ADVANTAGE [facility] (WNR) Sep 11, 2022 [id number] [phone] [place] PATIENT MEDICARE (WNR) MEDICARE (M) PART A January 10, 2012 PART A [id number] [place] PATIENT MEDICARE (WNR) MEDICARE (M) PART B January 10, 2012 PART B [id number] [phone] [place] PATIENT MEDICARE (WNR) MEDICARE (M) PART A January 10, 2012 PART A [id number] GILL DELUNA PATIENT UNICARE PREFERRED PROVIDER ORGANIZAT ION (PPO) [facility] INDE* * Mar 11, 2015 [id number] MADAI DELUNA [facility] (R) MEDICARE ADVANTAGE MCR ([facility]) Mar 11, 2021 [id number] GILL DELUNA PATIENT [facility] (WNR) MEDICARE ADVANTAGE MCR ([facility]) Sep 11, 2021 [id number] GILL DELUNA PATIENT Selected Encounter This section includes the information on record at [place] for the Encounter. Date/Time Encounter Type Encounter Description Reason Pro vider Source IHE Encounter Template Text not used by [place]
--- OUTSIDE RECORDS SUMMARY | 2024-08-21 23:35 | XMS_ITS | Encounter Summary ---
Author Name Department [facility] [place] Organization [facility] [place] Address [address] [place] [address] Care Team Providers Care Mail Processing Equipment Mechanic Name Role Phone MARIIA BROUSSARD Primary [...] Patient's Relationship to Policy [employer] ([id number]) PRESCRIPT ION [facility] Mar 11, 2018 [id number] MADAI DELUNA OTHER RELATIONSHIP [facility] PREFERRED PROVIDER ORGANIZAT ION (PPO) Jun 11, 2011 [id number] [phone] MADAI DELUNA PATIENT HUMANA [facility] (WNR) MEDICARE ADVANTAGE [facility] (WNR) Sep 11, 2022 [id number] [phone] [place] PATIENT MEDICARE (WNR) MEDICARE (M) PART A January 10, 2012 PART A [id number] [phone] [place] PATIENT MEDICARE (WNR) MEDICARE (M) PART B January 10, 2012 PART B [id number] [phone] [place] PATIENT MEDICARE (WNR) MEDICARE (M) PART A January 10, 2012 PART A [id number] [phone] GILL DELUNA PATIENT [facility] PREFERRED PROVIDER ORGANIZAT ION (PPO) CRISTHIAN LEAH GU* * Mar 11, 2015 [id number] MADAI DELUNA SPOUSE [facility] (WNR) MEDICARE ADVANTAGE [facility] Mar 11, 2021 [id number] [place] PATIENT [facility] (WNR) MEDICARE ADVANTAGE [facility] (WNR) Sep 11, 2021 [id number] GILL DELUNA PATIENT Selected Encounter This section includes the information on record at [place] for the Encounter. Date/Time Encounter Type Encounter Description Reason Provider Source Aug 16, 2024 11:00 AM MTMS BY BRUNO R[facility]ON 15 MIN CLINICAL PHARMACY ICD-10-CM E11.9 Type 2 diabetes mellitus without complications DARRICK ARMSTRONG [facility] Encounter Template Text not used by [place] Assessments - Encounter Diagnoses This section includes the primary and secondary diagnoses documented for the Encounter. Date/Time Primary/Secondary Diagnosis Diagnosis Name Provider Source Aug 16, 2024 11:30 AM PRIMARY Type 2 diabetes mellitus without complications BRANDON ARMSTRONG ALLIGATOR Plan of Treatment: Future Appointments (+ 6 [...] - MEDICINE [place] [facility] [place] [facility] Aug 26, 2024 03:30 PM AMBULATORY - MEDICINE [place] [facility] [place] [facility] Oct 17, 2024 01:00 PM AMBULATORY - MEDICINE [place] [facility] [place] [facility] Oct 24, 2024 10:30 AM AMBULATORY - PSYCHIATRY [place] [facility] [place] [facility] Oct 24, 2024 10:30 AM AMBULATORY - PS[place]CHIATRY [place] [facility] [facility] Oct 29, 2024 08:30 AM [facility] Dec 12, 2024 10:30 AM AMBULATORY - MEDICINE [facility] Active, Pending, and Scheduled Orders [...] 2024 09:12 PM Consult Order [facility] [place] [employer] ALLIGATOR Lab Results: +/- 30 days of the [...] Range Comment Jul 25, 2024 11:45 AM ALLIGATOR TSH Specimen Type: SERUM No comment entered. Ordering Provider: MARIIA ABBOTT Report Released Date/Time: Jul 16, 2024 02:11 PM Reporting Lab: [facility] [address] [facility] [address] Performing Lab: [address] [address] TSH 2.04 u[IU]/mL 0.35-5.00 Jul 25, 2024 11:45 AM ALLIGATOR HEMOGLOBIN A1C PANEL Specimen Type: BLOOD Comment: [...] Jul 16, 2024 02:11 PM Reporting Lab: [facility] [address] [facility] [address] Performing Lab: [facility] [address] [facility] [address] HEMOGLOBIN A1C 8.5 H 4.0-5.6 Jul 25, 2024 11:45 AM ALLIGATOR LIPID PANEL FASTING Specimen Type: SERUM No comment entered. Ordering Provider: MARIIA ABBOTT Report Released Date/Time: Jul 16, 2024 02:11 PM Reporting Lab: [facility] [address] [facility] [address] Performing Lab: [facility] [address] [address] CHOLESTEROL 118 mg/dL TRIGLYCERIDE 77 mg/dL 0-150 LDL calculated 58 mg/dL 0-129 CHOL/HDL 2.6 HDL CHOLESTEROL 45 mg/dL 40-60 Jul 25, 2024 11:45 AM ALLIGATOR BASIC METABOLIC PANEL (fasting) Specime n Type: SERUM No comment entered. Ordering Provider: MARIIA ABBOTT Report Released Date/Time: Jul 16, 2024 02:11 PM Reporting Lab: [facility] [address] [address] Performing Lab: [facility] [address] [address] UREA NITROGEN 39 mg/dL H 7-25 GLUCOSE 239 mg/dL H 65-100 SODIUM 140 mmol/L 135-145 POTASSIUM 4.4 mmol/L 3.5-5.0 CHLORIDE 104 mmol/L 100-110 CO2 25 meq/L 20-30 CREATININE, Serum 1.03 mg/dL 0.50-1.40 eGFR(CKD-EPI 2020) 75 mL/min >60 Jul 25, 2024 11:45 AM ALLIGATOR LIVER FUNCTION Specimen Type: SERUM No comment entered. Ordering Provider: MARIIA ABBOTT Report Released Date/Time: Jul 16, 2024 02:11 PM Reporting Lab: [facility] [address] [address] Performing Lab: [facility] [address] [address] PROTEIN,TOTAL 6.8 g/dL 6.0-8.3 ALBUMIN 3.6 g/dL 3.5-5.0 ALKALINE PHOSPHATASE 71 U/L 40-150 AST 17 U/L 5-34 ALT 18 U/L BILIRUBIN, TOTAL 0.5 mg/dL 0.2-1.2 Jul 25, 2024 11:45 AM ALLIGATOR CBC AND DIFF (AUTO) Specimen Type: BLOOD No comment entered. Ordering Provider: MARIIA ABBOTT Report Released Date/Time: Jul 16, 2024 02:11 PM Reporting Lab: [address] [address] Performing Lab: [address] [address] WBC 6.11 10*3/uL 4.50-11.00 RBC 4.86 10*6/uL [...] 06, 2021 09:30 AM VA-TOBACCO NEVER USED ALLIGATOR Tobacco Use History This section includes a history of the smoking, or tobacco-related health factors, that were collected on or before the date of the Encounter. The data comes from the [place] facility where the Encounter took place. Date/Time Smoking Status/Tobacco Use Comment F acility Apr 30, 2020 01:00 PM VA-TOBACCO FORMER USER ALLIGATOR Apr 30, 2020 01:00 PM VA-TOBACCO QUIT 15 YRS OR MORE ALLIGATOR January 09, 2019 02:16 PM VA-TOBACCO FORMER USER ALLIGATOR January 09, 2019 02:16 PM VA-TOBACCO QUIT 15 YRS OR MORE ALLIGATOR Feb 13, 2018 11:05 AM QUIT TOBACCO USE > 7 YEARS AGO ALLIGATOR Feb 28, 2017 01:42 PM LIFETIME NON-TOBACCO USER quit 1976 ALLIGATOR Nov 17, 2015 09:53 AM QUIT TOBACCO USE > 7 YEARS AGO ALLIGATOR February 08, 2002 03:04 PM QUIT TOBACCO USE > 7 YEARS AGO Patient states he smoked from age [age] and quit. ALLIGATOR Aug 10, 2001 03:42 PM NON-TOBACCO USER Stopped tobacco 35 years ago ALLIGATOR Encounter Notes: All associated encounter notes This section contains the clinical notes associated to the Encounter. Date/Time Encounter Note(s) Provider Source Aug 16, 2024 11:14 AM PHARMACY OUTPATIEN T NOTE: LOCAL TITLE: PHARMACY CLINIC NOTE STANDARD TITLE: PHARMACY OUTPATIENT NOTE DATE OF NOTE: AUG 16, 2024@11:14 ENTRY DATE: AUG 16, 2024@11:15:05 AUTHOR: LUX ARMSTRONG COSIGNER: URGENCY: STATUS: COMPLETED Patient Name: GILL DELUNA [facility] for diabetes management treatment. : January Age: 79 Sex: MALE Race: WHITE Subjective: Pt will have corneal surgery scheduled for 12/18/24. Pt states he continues to have high BG levels and he does not understand why? Per prev: Pt presents for a f/up. He states he is doing well. The surgery for prostate went well. He continues to have some problems w/ sensor. He called the 1800 number but still this continues to be unresolved. Per prev: Pt is here for follow up. 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 Pt states he has gone through [...] well. 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 Pt successfully connected dexcom clarity to the [...] appt w/ PCP yesterday. He informed the fiction writer he decided to stopp empagliflozin 3 [...] the reader. He has contacted the provided [employer] [place] dedicated line and received several replacement sensors [...] estate. Pt is seeing MH at the [place] and is grateful for that. He also [...] as instructed on 01/23/23. Pt notified the fiction writer via secure messaging: on 01/30/23: could [...] what to do Can you call me [phone] ed Per prev: Pt is here to [...] states he has had hypoglycemic episodes in printer technician hours. He is glad he is on this equipment. The fiction writer spent close to 20 minutes trying to have pt accept the invitation without success. Both fiction writer and pt agreed for him to [...] Benign Prostatic Hypertrophy with Outflow Obstruction ([facility] [id number]) 3. Erectile Dysfunction ([facility] [id number]) 4. Depression ([facility] [id number]) 5. Actinic keratosis 6. Basal cell carcinoma of skin 7. Vitamin D Deficiency ([facility] [id number]) 8. Contact dermatitis 9. Space-occupying lesion of brain 10. Second degree atrioventricular block 11. Cancer screening follow up 12. Hyperglycemia due to type 2 diabetes mellitus 13. PVD-peripheral vascular disease 14. Hyperlipidemia 15. Elevated PSA 16. Epistaxis * 17. Sleep apnea (SNOMED CT 06954600) 18. Superficial basal cell carcinoma 19. Gastroesophageal reflux disease (SNOMED CT 587449985) 20. Anxiety 21. Diabetes mellitus (SNOMED CT 87896562) 22. Essential hypertension (SNOMED CT 95322941) 23. Body mass index 25-29 - overweight [...] HEMOGLOBIN A1C TREND Collection DT Spec HGBA1c 07/25/2024 11:45 BLOOD 8.5 H 05/03/2024 13:53 BLOOD 8.1 H 03/01/2024 10:53 BLOOD 7.8 H 08/14/2023 08:00 BLOOD 7.9 H 05/04/2023 13:44 BLOOD 7.6 H CBC TREND Collection DT Spec WBC RBC HGB HCT MCV MCH PLT 07/25/2024 11:45 BLOOD 6.11 4.86 14.8 42.8 88.1 30.5 140 05/03/2024 13:53 BLOOD 6.25 5.12 15.5 44.7 87.3 30.3 165 01/12/2023 07:44 BLOOD 6.56 5.36 16.7 48.4 90.3 31.2 165 11/15/2022 13:53 BLOOD 7.65 5.49 16.8 48.9 89.1 30.6 151 03/16/2022 09:06 BLOOD 6.46 5.14 15.9 46.5 90.5 30.9 156 CHEM 7 TREND LAB CUMULATIVE SELECTED Collection DT Spec GLUCOSE BUN CREATIN Sodium K+/Pot CL CO2 07/25/2024 11:45 SERUM 239 H 39 H 1.03 140 4.4 104 25 05/03/2024 13:53 SERUM 294 H 46 H 1.05 137 4.4 105 21 03/01/2024 10:53 SERUM 224 H 41 H 1.02 132 L 3.9 100 25 08/14/2023 08:00 SERUM 138 H 26 H 1.00 138 4.3 100 29 05/04/2023 13:44 SERUM 226 H 54 H 0.96 138 4.1 104 24 LAB CUMULATIVE SELECTED 2 No selection items chosen for this component. CHEM 7 Results Collection DT Spec Sodium K+/Pot CL CO2 GLUCOSE BUN 07/25/2024 11:45 SERUM 140 4.4 104 25 239 H 39 H 05/03/2024 13:53 SERUM 137 4.4 105 21 [...] DT Spec CHOL HDL CHO/HDL LDL-c TRIG 07/25/2024 11:45 SERUM 118 45 2.6 58 77 05/03/2024 13:53 SERUM 108 45 2.4 47 79 03/01/2024 10:53 SERUM 117 44 2.7 54 94 01/12/2023 07:44 SERUM 108 40 2.7 48 101 11/15/2022 13:53 SERUM 122 46 2.7 64 60 THYROID PANEL Collection DT Specimen Test Name Result Units Ref Range 07/25/2024 11:45 SERUM TSH 2.04 uIU/mL 0.35 - 5.00 01/12/2023 07:44 SERUM Free T4 SR-REF 0.89 ng/dL 0.6 - 1.6 VITAMIN D 25-OH Collection DT Specimen Test Name Result Units Ref Range 05/03/2024 13:53 SERUM VITAMIN D (25-OH) 24 ng/mL 20 - 50 SrCr (last 6 weeks): CREATININE-EGFR 07/25/24 11:45 1.03 CRCL IBW: CrCl(est): 52.2 mL/min (Creat:1.03 07/25/24) CRCL ACT: 66.3 mL/min CRCL ADJ: 52.2 mL/min (07/25/24) lft's: wnl on 07/2024 Vitals: Weight (BMI): 171.7 lb [77.88 kg] (12/04/2023 13:32) Height: 65 in [165.1 cm] (12/04/2023 13:32) BMI: 28.6 Active and Recently Outpatient Medications (including Supplies): Active Outpatient Medications Status Active Outpatient Medications (including Supplies): ACCU-CHEK GUIDE (GLUCOSE) TEST STRIP USE 1 STRIP TO TEST ACTIVE BLOOD SUGARS FOUR TIMES A DAY AMLODIPINE BESYLATE 2.5MG TAB TAKE ONE TABLET BY MOUTH ACTIVE ONCE DAILY FOR BLOOD PRESSURE/HEART, DO NOT TAKE WITH GRAPEFRUIT JUICE BETHANECHOL CHLORIDE 25MG TAB TAKE TWO TABLETS BY MOUTH ACTIVE TWICE DAILY FOR URINARY RETENTION CHLORTHALIDONE 25MG TAB TAKE ONE TABLET BY MOUTH ONCE ACTIVE (S) DAILY TO REMOVE FLUID/CONTROL BLOOD PRESSURE CLONIDINE HCL 0.1MG TAB TAKE ONE TABLET BY MOUTH EVERY 12 ACTIVE HOURS TO CONTROL BLOOD PRESSURE Indication: FOR HIGH BLOOD PRESSURE DEXTROSE 24GM/31GM SQUEEZE TUBE 1 TUBE BY MOUTH NEEDED ACTIVE Indication: FOR LOW BLOOD SUGAR GLUCOSE SENSOR DEXCOM G7 USE 1 SENSOR DIRECTED EVERY 10 ACTIVE DAYS INSULIN,ASPART(EQV-NOVLG)100UN/ML FLXPEN INJECT ACTIVE DIRECTED SUBCUTANEOUSLY THREE TIMES A DAY ACCORDING TO ICR OF 1 UNIT FOR EACH 9 GRAMS OF CARBS BEFORE BREAKFAST AND LUNCH AND 1 UNIT FOR EACH 10 GRAMS OF CARBS BEFORE DINNER MEAL Indication: FOR DIABETES INSULIN,GLARGINE-YFGN 100UNIT/ML PEN 3ML INJECT 11 UNITS ACTIVE SUBCUTANEOUSLY ONCE DAILY Indication: FOR DIABETES LANCET,SOFTCLIX USE 1 LANCET DIRECTED FOUR TIMES A DAY ACTIVE TO TEST BLOOD SUGAR LORAZEPAM 0.5MG TAB TAKE ONE TABLET BY MOUTH ONCE DAILY ACTIVE Indication: FOR ANXIETY NEEDLE,PEN 31G,5MM USE 1 NEEDLE SUBCUTANEOUSLY FOUR TIMES ACTIVE A DAY FOR USE WITH PEN DEVICE SEMAGLUTIDE 2MG/0.75ML INJ PEN 3ML INJECT 2MG ACTIVE SUBCUTANEOUSLY ONCE A WEEK Indication: FOR TYPE 2 DIABETES MELLITUS SILDENAFIL CITRATE 100MG TAB TAKE ONE TABLET BY MOUTH ONCE ACTIVE DAILY NEEDED TAKE 1 HOUR PRIOR TO SEXUAL ACTIVITY Indication: FOR ERECTILE DYSFUNCTION VALSARTAN 320MG TAB TAKE ONE TABLET BY MOUTH ONCE DAILY ACTIVE Non-VA FLUTICASONE NASAL SOLN,NASAL INTO EACH NOSTRIL ACTIVE 16 Total Medications MEDICATION RECONCILIATION: BLOOD GLUCOSE MONITORING Date: 11/13/23 Dexcom G7 [...] VERY LOW days with CGM data: 21% Date: 08/16/24 Dexcom G7 14 day av mg/dl 23% VERY HIGH 44% HIGH 33% IN RANGE 0% LOW 0% VERY LOW days with CGM data: 29% invitation to dexcom clarity was sent on 11/10/23 to: [email or web address]@[employer] NUTRITION: Patient eats on avg. 2-3 x [...] it up at work in microwave D: stateless fries and chicken nuggetts; soup - canned, [...] 1/2 gallon but switching to milk substituie snacks: dots candy Exercise: decreased with stressors; previously: - Walks [...] highly inconsistent. Pt did meet w/ the cone operator Dayday . He will start applying carb [...] inssulin. Pt may benefit from swtiching from shantell to magdalena - pt had ADR to metfomrin and was unable to tolerate empagliflozin f/up in August. Date: 08/16/24 Pt's time in target is still slightly above 30%. Pt states that hte BG levels go up for no reason . Upon discussion it was found out that pt may be underestimating carbs eaten. Counseled pt on downloading an meng that could help him w/ carb counting. Pt declined nutritional consult. Pt was informed mounjaro has been declined. Offered to retrial empagliflozin. pt in agreement. Reviewed the ADR profile and importance of adequate hydration. f/up in September . DIABETES A1c is ABOVE goal of <7% [...] mg/dl -C/t semaglutide 2mg once weekly (Mondays) -START empagliflozin 10 mg daily in AM - eGFR 75ml/min on 07/2024 - [facility]ed [facility] - Monitor [...] - Repeat A1c: 11/2022 HTN: [facility] and ASA 81mg/day. Defer to PCP. ASCVD: LDL < 70, not on statin therapy; defer to PCP Microalb: 8.3 mg/G (12/2020); will order w/ next labs History of Preventive Care: Most recent visit to commercial loan underwriter: 04/2022 Most recent visit to optometry: 10/2021; Diabetes mellitus without retinopathy or macular edema Clinic's Next Scheduled Follow-up: 08/16/24 FUTURE APPOINTMENTS: 08/22/2024 13:00 CWM/SO/PACT 10 08/26/2024 15:30 NHM/OPTOMETRY/JORGE 10/29/2024 08:30 CWM/SO/PODIATRY/JASPAL 12/12/2024 10:30 CWM/NO/DERMATOLOGY PRESSURE CONTROLLER AM DM type is : T2D Length of Visit: 30 minutes /simone/ LUX ARMSTRONG CLINICAL PATTERNMAKER PLASTER AND PLASTIC Signed: 08/16/2024 12:51 Receipt Acknowledged By: 08/16/2024 22:37 /simone/ MARIIA BROUSSARD MD PHYSICIAN LUX ARMSTRONG ALLIGATOR
--- OUTSIDE RECORDS SUMMARY | 2024-08-21 23:35 | XMS_ITS | Encounter Summary ---
Author Name [facility] [place] Organization [place] Address [address] [place] [address] Care Team Providers Care Bilingual Counter Sales Retail Name Role Phone MARIIA BROUSSARD Primary Care [...] Patient's Relationship to Policy [employer] SCRIP[employer] ([id number]) PRESCRIPT ION [facility] Mar 11, 2018 [id number] [phone] MADAI DELUNA OTHER RELATIONSHIP [facility] PREFERRED PROVIDER ORGANIZAT ION (PPO) Jun 11, 2011 [id number] MADAI DELUNA PATIENT [employer] [facility] (WNR) MEDICARE ADVANTAGE [facility] (WNR) Sep 11, 2022 [id number] [phone] [place] PATIENT MEDICARE (WNR) MEDICARE (M) PART A January 10, 2012 PART A [id number] MIKIE GILL PATIENT MEDICARE (WNR) MEDICARE (M) PART B January 10, 2012 PART B [id number] GILL DELUNA PATIENT MEDICARE (WNR) MEDICARE (M) PART A January 10, 2012 PART A [id number] GILL DELUNA PATIENT UNICARE PREFERRED PROVIDER ORGANIZAT ION (PPO) UNICA RE STATE INDE* * Mar 11, 2015 [id number] [facility] (WNR) MEDICARE ADVANTAGE [facility] (WNR) Mar 11, 2021 [id number] GILL DELUNA PATIENT [employer] [facility] (WNR) MEDICARE ADVANTAGE [facility] (WNR) Sep 11, 2021 [id number] GILL DELUNA PATIENT Selected Encounter This section includes the information on record at [place] for the Encounter. Date/Time Encounter Type Encounter Description Reason Pro vider Source Aug 01, 2024 03:03 PM Outpatient Encounter PRIMARY CARE/MEDICINE IHE Encounter [...] C [facility]TRL [place] [facility] Active, Pending, and Scheduled Orders [...] 2024 09:12 PM Consult Order [facility] Cons Learning Technologist[facility] [place] Lab Results: +/- 30 days of the [...] Range Comment Jul 25, 2024 11:45 AM [place] TSH Specimen Type: SERUM No comment entered. Ordering Provider: MARIIA ABBOTT Report Released Date/Time: Jul 16, 2024 02:11 PM Reporting Lab: [address] [address] Performing Lab: [address] [address] TSH 2.04 u[IU]/mL 0.35-5.00 Jul 25, 2024 11:45 AM [place] HEMOGLOBIN A1C PANEL Specimen Type: BLOOD Comment: [...] Jul 16, 2024 02:11 PM Reporting Lab: [address] [address] Performing Lab: [address] [address] HEMOGLOBIN A1C 8.5 H 4.0-5.6 Jul 25, 2024 11:45 AM [place] LIPID PANEL FASTING Specimen Type: SERUM No comment entered. Ordering Provider: MARIIA ABBOTT Report Released Date/Time: Jul 16, 2024 02:11 PM Reporting Lab: [address] [address] Performing Lab: [address] [address] CHOLESTEROL 118 mg/dL TRIGLYCERIDE 77 mg/dL 0-150 LDL calculated 58 mg/dL 0-129 CHOL/HDL 2.6 HDL CHOLESTEROL 45 mg/dL 40-60 Jul 25, 2024 11:45 AM [place] BASIC METABOLIC PANEL (fasting) Specime n Type: SERUM No comment entered. Ordering Provider: MARIIA ABBOTT Report Released Date/Time: Jul 16, 2024 02:11 PM Reporting Lab: [address] [address] Performing Lab: [address] [address] UREA NITROGEN 39 mg/dL H 7-25 GLUCOSE 239 mg/dL H 65-100 SODIUM 140 mmol/L 135-145 POTASSIUM 4.4 mmol/L 3.5-5.0 CHLORIDE 104 mmol/L 100-110 CO2 25 meq/L 20-30 CREATININE, Serum 1.03 mg/dL 0.50-1.40 eGFR(CKD-EPI 2020) 75 mL/min >60 Jul 25, 2024 11:45 AM [place] LIVER FUNCTION Specimen Type: SERUM No comment entered. Ordering Provider: MARIIA ABBOTT Report Released Date/Time: Jul 16, 2024 02:11 PM Reporting Lab: [address] [address] Performing Lab: [address] [address] PROTEIN,TOTAL 6.8 g/dL 6.0-8.3 ALBUMIN 3.6 g/dL 3.5-5.0 ALKALINE PHOSPHATASE 71 U/L 40-150 AST 17 U/L 5-34 ALT 18 U/L BILIRUBIN, TOTAL 0.5 mg/dL 0.2-1.2 Jul 25, 2024 11:45 AM [place] CBC AND DIFF (AUTO) Specimen Type: BLOOD No comment entered. Ordering Provider: MARIIA ABBOTT Report Released Date/Time: Jul 16, 2024 02:11 PM Reporting [facility]: [facility] [address] [facility] [address] Performing Lab: [facility] [address] [facility] [address] WBC 6.11 10*3/uL 4.50-11.00 RBC 4.86 10*6/uL [...] 03, 2024 10:00 AM VA-TOBACCO [facility] Tobacco Use History This section includes a history of the smoking, or tobacco-related health factors, that were collected on or before the date of the Encounter. The data comes from the [place] facility where the Encounter took place. Date/Time Smoking Status/Tobacco Use Comment F acility Dec 12, 2022 03:10 PM VA-TOBACCO [facility] USED [facility] [place] [facility] Encounter Notes: All associated encounter notes This section contains the clinical notes associated to the Encounter. Date/Time Encounter Note(s) Provider Source Aug 01, 2024 03:08 PM PRIMARY CARE SECUR E MESSAGING: LOCAL TITLE: PRIMARY CARE SECURE MESSAGING STANDARD TITLE: PRIMARY CARE SECURE MESSAGING DATE OF NOTE: AUG 01, 2024@15:08 ENTRY DATE: AUG 01, 2024@15:08:34 AUTHOR: NEGRO CLARKE EXP COSIGNER: URGENCY: STATUS: COMPLETED ------Original Message -------- Sent: 08/01/2024 03:08 PM ET From: NEGRO CLARKE To: GILL DELUNA Subject: Appointment:reschedule Good afternoon Mr. Mistry, I left a message on your phone # we have listed [phone] twice. We need to reschedule your preop with another provider to get you in the clinic. I have 08/22/[address] Lake at 1130, 1300 or 1530. If this date and any of these times work for you please contact me JADA. Thank you Denilson DAMICO Signed: 08/01/2024 15:08 Receipt Acknowledged By: 08/02/2024 16:27 /simone/ ABDI ALMARAZ LPN LPN 08/04/2024 23:12 /simone/ ZAID ODONNELL RN REGISTERED NURSE NEGRO CLARKE [facility] [facility] Aug 01, 2024 03:03 PM PRIMARY CARE SECUR E MESSAGING: LOCAL TITLE: PRIMARY CARE SECURE MESSAGING STANDARD TITLE: PRIMARY CARE SECURE MESSAGING DATE OF NOTE: AUG 01, 2024@15:03 ENTRY DATE: AUG 01, 2024@15:03:56 AUTHOR: NEGRO CLARKE EXP COSIGNER: URGENCY: STATUS: COMPLETED ------Original Message -------- Sent: 08/01/2024 03:01 PM ET From: GILL DELUNA To: BOBO,O_P [facility] Subject: Appointment:reschedule I had an appointment for 07-30 at [facility]. Doctor called in sick two days later I got a called which I did not get to in time. So today I got a call and called back the number and left a message to please call me back. I have not received a call back as of yet thank you /simone/ NEGRO DAMICO Signed: 08/01/2024 15:03 NEGR[facility] CLARKE [facility]
--- OUTSIDE RECORDS SUMMARY | 2024-08-21 23:35 | XMS_ITS | Encounter Summary ---
Author Name [facility] [place] Organization [place] Address [address] [place] [address] Care Team Providers Care Floor Scrubber Name Role Phone MARIIA BROUSSARD Primary Care [...] Patient's Relationship to Policy [employer] ([id number]) PRESCRIPT ION [facility] Mar 11, 2018 [id number] [phone] MADAI DELUNA OTHER RELATIONSHIP [facility] PREFERRED PROVIDER ORGANIZAT ION (PPO) Jun 11, 2011 [id number] [phone] MADAI DELUNA PATIENT HUMANA [facility] (WNR) MEDICARE ADVANTAGE [facility] (WNR) Sep 11, 2022 [id number] [phone] GILL DELUNA PATIENT MEDICARE (WNR) MEDICARE (M) PART A January 10, 2012 PART A [id number] MIKIE GILL PATIENT MEDICARE (WNR) MEDICARE (M) PART B January 10, 2012 PART B [id number] GILL DELUNA PATIENT MEDICARE (WNR) MEDICARE (M) PART A January 10, 2012 PART A [id number] GILL DELUNA PATIENT UNICARE PREFERRED PROVIDER ORGANIZAT ION (PPO) UNICLyric RE STATE INDE* * Mar 11, 2015 [id number] MADAI DELUNA [facility] (WNR) MEDICARE ADVANTAGE [facility] (WNR) Mar 11, 2021 [id number] GILL DELUNA PATIENT [employer] [facility] (WNR) MEDICARE ADVANTAGE [facility] (WNR) Sep 11, 2021 [id number] GILL DELUNA PATIENT Selected Encounter This section includes the information on record at [place] for the Encounter. Date/Time Encounter Type Encounter Description Reason Pro vider Source Aug 16, 2024 08:22 AM Outpatient Encounter PRIMARY CARE/MEDICINE IHE Encounter [...] - MEDICINE [place] C [facility] [place] [facility] Aug 26, 2024 03:30 PM AMBULATORY - MEDICINE [place] C [facility] [facility] Oct 17, 2024 01:00 PM AMBULATORY - MEDICINE [place] C [facility] [facility] Oct 24, 2024 10:30 AM AMBULATORY - PSYCHIATRY [place] [facility] [facility] Oct 24, 2024 10:30 AM AMBULATORY - PS[place]CHIATRY [place] [facility] Oct 29, 2024 08:30 AM AMBULATORY - MEDICINE [facility] Dec 12, 2024 10:30 AM AMBULATORY - MEDICINE [place] C NTRL [place] [facility] Active, Pending, and Scheduled Orders This [...] Jul 16, 2024 09:12 PM Consult Order [facility] Cons Kindergarten [facility] [facility] [place] Lab Results: +/- 30 days of the [...] Range Comment Jul 25, 2024 11:45 AM [place] HEMOGLOBIN A1C PANEL Specimen Type: BLOOD Comment: [...] Jul 16, 2024 02:11 PM Reporting Lab: [facility] [address] [facility] [address] Performing Lab: [address] [address] HEMOGLOBIN A1C 8.5 H 4.0-5.6 Jul 25, 2024 11:45 AM [place] TSH Specimen Type: SERUM No comment entered. Ordering Provider: MARIIA ABBOTT Report Released Date/Time: Jul 16, 2024 02:11 PM Reporting Lab[facility] [address] [facility] [facility] [address] Performing Lab: [address] [address] TSH 2.04 u[IU]/mL 0.35-5.00 Jul 25, 2024 11:45 AM [place] LIPID PANEL FASTING Specimen Type: SERUM No comment entered. Ordering Provider: MARIIA ABBOTT Report Released Date/Time: Jul 16, 2024 02:11 PM Reporting Lab: [address] [address] Performing Lab: [address] [address] CHOLESTEROL 118 mg/dL TRIGLYCERIDE 77 mg/dL 0-150 LDL calculated 58 mg/dL 0-129 CHOL/HDL 2.6 HDL CHOLESTEROL 45 mg/dL 40-60 Jul 25, 2024 11:45 AM [place] LIVER FUNCTION Specimen Type: SERUM No comment entered. Ordering Provider: MARIIA ABBOTT Report Released Date/Time: Jul 16, 2024 02:11 PM Reporting Lab: [address] [address] Performing Lab: [address] [address] PROTEIN,TOTAL 6.8 g/dL 6.0-8.3 ALBUMIN 3.6 g/dL 3.5-5.0 ALKALINE PHOSPHATASE 71 U/L 40-150 AST 17 U/L 5-34 ALT 18 U/L BILIRUBIN, TOTAL 0.5 mg/dL 0.2-1.2 Jul 25, 2024 11:45 AM [place] BASIC METABOLIC PANEL (fasting) Specime n Type: SERUM No comment entered. Ordering Provider: MARIIA ABBOTT Report Released Date/Time: Jul 16, 2024 02:11 PM Reporting Lab: [address] [address] Performing Lab: [address] [address] UREA NITROGEN 39 mg/dL H 7-25 GLUCOSE 239 mg/dL H 65-100 SODIUM 140 mmol/L 135-145 POTASSIUM 4.4 mmol/L 3.5-5.0 CHLORIDE 104 mmol/L 100-110 CO2 25 meq/L 20-30 CREATININE, Serum 1.03 mg/dL 0.50-1.40 eGFR(CKD-EPI 2020) 75 mL/min >60 Jul 25, 2024 11:45 AM [place] CBC AND DIFF (AUTO) Specimen Type: BLOOD No comment entered. Ordering Provider: MARIIA ABBOTT Report Released Date/Time: Jul 16, 2024 02:11 PM Reporting Lab: [facility] [address] [facility] [address] Performing Lab: [facility] [address] [facility] [facility] [address] WBC 6.11 10*3/uL 4.50-11.00 RBC 4.86 10*6/uL [...] 03, 2024 10:00 AM VA-TOBACCO NEVER USED [place] [facility] [place] [facility] Tobacco Use History This section includes a history of the smoking, or tobacco-related health factors, that were collected on or before the date of the Encounter. The data comes from the [place] facility where the Encounter took place. Date/Time Smoking Status/Tobacco Use Comment F acility Dec 12, 2022 03:10 PM VA-TOBACCO NEVER USED [place] CNTR [place] [facility] Encounter Notes: All associated encounter notes This section contains the clinical notes associated to the Encounter. Date/Time Encounter Note(s) Provider Source Aug 16, 2024 08:22 AM PRIMARY CARE OUTPA TIENT NOTE: LOCAL TITLE: AMBULATORY/OUTPATIENT CARE NOTE STANDARD TITLE: PRIMARY CARE OUTPATIENT NOTE DATE OF NOTE: AUG 16, 2024@08:22 ENTRY DATE: AUG 16, 2024@08:22:25 AUTHOR: TIANA NOVAK EXP COSIGNER: URGENCY: STATUS: COMPLETED Vet to have EDTA Chelation procedure. Left Eye: 08/28/24 Right Eye: 09/25/23 Procedure to be preformed at: [facility] MD: Dr. Ari Joseph Per [facility] Vet only needs recent labs and H&P prefomed. /simone/ TIANA NOVAK LPN PACT 10 Signed: 08/16/2024 08:33 TIANA NOVAK [place]
--- OUTSIDE RECORDS SUMMARY | 2024-08-21 23:36 | XMS_ITS | Continuity of Care Document ---
Author Organization [facility] Address [address] [place] [address] Phone Care Team Providers Care Cabin Crew Name Role Phone Grecia Coello PA-C Unavailable Unavailab le Allergies, Adverse Reactions, Alerts Substance Reaction Status Criticality No Known Allergies Active No Inform ation Medications Medication Instructions Dosage Effective Dates (start - stop) Status Comments hydrochlorothiazide 12.5 mg tablet take 1 tablet by oral route every day 12.5 MG - Active Novolog Mix 70-30 FlexPen 100 unit/mL subcutaneous pen inject by subcutaneous route as per insulin protocol 0.00 - Active CARVEDILOL (unknown strength) Not Available - Active LANTUS (unknown strength) inject by subcutaneous route as per insulin protocol Not Available - Active CLONIDINE (unknown strength) Not Available - Active Procedures Procedure Date Remove Impacted Ear Wax Office/Outpatient Visit, New Office/Outpatient Visit, Est Office/Outpatient Visit, Est Office/Outpatient Visit, Est Flu immunize no order/admin PNEUMOC VAC/ADMIN/RCV'D BMI>=30or<22 omaira no followup Doc meds verified w/pt or re TOBACCO NON-USER Office/Outpatient Visit, New Advance Directives Directive Yes / No Effective Date File Name No Information Encounters Encounter Description Practice Location Reason(s) For Visit Diagnoses Date Provider Providers Copied on Encounter [facility], [address], [place], [id number] , tel:[phone] De Sha No Information 2 De Sha Grecia. [address] [place] [address], [address] [place] [address], . tel:[phone] Referring Provider: Zachary Bull MD, [address], [place], [address]. tel:[phone] Office/Outpa tient Visit, [facility], [address] [place] [address], [address] [place] [address] , tel:[phone] De Sha sleep apnea (chief complaint) Sleep apnea in adultImpacted cerumen of left earEpistaxis May- 1 De Sha Lechugayn. [address] [place] [address], [address] [place] [address], . tel:[phone] Referring Provider: Zachary Bull MD, [address], [place], [address]. tel:[phone] Office/Outpa tient Visit, [facility], [address] [place] [address], [address] [place] [address] , tel:[phone] Ankush Sleep apnea (follow up) (chief complaint) Sleep ApneaObesity 2201 5 No Information Referring Provider: Milena Cazares MD, [facility] [address] [place], [address]. tel:[phone] Office/Outpa tient Visit, [facility], [address] [place] [address], [address] [place] [address] , tel:[phone] Ankush sleep apnea (chief complaint) Sleep ApneaEpistaxis 0 1-201 4 No Information Referring Provider: Zachary Bull MD, [address], [place], [address]. tel:[phone] Office/Outpa tient Visit, [facility], [address] [place] [address], [id number] , [phone] Kuhar sleep apnea/snor ing -adult (chief complaint) Sleep Apnea Oct-0 3-201 3 Tung Flores. [address] [place], [place], [address] [place] [address], . tel:[phone] Referring Provider: Zachary Bull MD, [address], [place], [address]. tel:[phone] Office/Outpa tient Visit, [facility], [address] [place] [address], [address] [place] [address] , tel:[phone] Kuhar sleep apnea/snor ing -adult (chief complaint) Sleep ApneaSleep ApneaDeviated Nasal Septum, Comminuted, AcquiredAllergic Rhinitis NOSDeviated Nasal Septum, Comminuted, AcquiredAllergic Rhinitis NOS 3 Tung Flores. [address] [place], [place], [address] [place] [address], . tel:[phone] Referring Provider: Zachary Bull MD, [address], [place], [address]. tel:[phone] Family History Family Member Type Diagnosis Age At Onset Mother Problem (finding) Alive and well Brother Problem (finding) Alive and well Mother Problem (finding) Maternal history of amirah betes mellitus Sister Problem (finding) Maternal history of amirah betes mellitus Sister Problem (finding) Alive and well Mother Problem (finding) Heart disease Daughter Problem (finding) Alive and well Son Problem (finding) Alive and well Payers Payer name Insurance type Covered alliance party ID Authoriza tion(s) [facility] [id number] Social History Type Description Quantity Date Captured Comments Sex Male Smoking Status No Information Chief Complaint And Reason For Visit No Information Reason For Referral Reason For Referral No Information History Of Present Illness Encounter Date Complaint History Of Prese nt Illness sleep apnea Patient is here for monitoring of obstructive sleep apnea. He has not had evaluation with our office and 2015. He has continued to use his BiPAP device up until recently due to being notified about recall. Patient does indicate that the BiPAP was working due to controlled fatigue issues. His prior polysomnogram/home sleep study had indicated severe sleep apnea with severe oxygen desaturation. He has had some issues with nasal dryness and bleeding and is on lubricating drops for this with reported benefit provided from outside facility. He does have humidification for the BiPAP however does not use humidification sleep apnea Sleep apnea (follow up) The elaine ent presents for follow up of hypersomnia. The symptoms are improved. The patient reports improvement in previously reported symptoms since the last visit. The patient does not report improvement in apnea or irregular nighttime breathing, continued initial symptoms, intolerance of therapy, non-compliance with therapy and worsening of previously reported symptoms. Relevant history: a BMI of 32.19, uses CPAP 8 hours per night and takes 0 hours per nap. The patient denies awakening with choking, awakening with shortness of breath, depression, difficulty concentrating, difficulty initiating sleep, difficulty maintaining sleep, gasping during sleep, headache, heartburn, insomnia, irritability, nasal congestion, nocturia, non-restorative sleep, personality changes, poor or worsening memory, sleep attacks, snoring (reported by patient), snoring (Symptom Master), snoring (reported by others), sore throat upon awakening, weight gain, wheezing and witnessed apnea or irregular nighttime breathing. Additional information: getting vivid dreams. Functional Status Date Functional Assessmen t No Information Instructions Date Instruction Additional Infor mation No Information Assessments Type Assessment Date No Information Patient Care Teams Name Effective Dates (start - stop) Status Members No Information
== END 2024-08-21 09:35 | disposition home or self-care (01) ==
PROVIDERS: PCP Internal Medicine; Visit Provider Urology
DX: N40.1 Benign prostatic hyperplasia with lower urinary tract symptoms (principal); N13.8 Other obstructive and reflux uropathy; R97.20 Elevated prostate specific antigen [PSA]; Z13.9 Encounter for screening, unspecified
CPT/HCPCS: 99213

== ENCOUNTER → 2024-08-21 09:10 | Outpatient (BNVA) | payer OTHER, SELFPAY | PROVIDERS: PCP Internal Medicine; Visit Provider Urology | DX: N40.1 Benign prostatic hyperplasia with lower urinary tract symptoms (principal); N13.8 Other obstructive and reflux uropathy; R97.20 Elevated prostate specific antigen [PSA] | CPT/HCPCS: 51798; 81003; 99212 ==

== ENCOUNTER 2025-03-19 10:31 | Outpatient (AMB) | payer OTHER, SELFPAY ==
--- NOTE | 2025-03-19 10:44 | MHC.OFFVIS ---
Intake Visit Reasons: follow up/PVR Intake Note: Patient is present for PVR F/U Urology Medication:SILDENAFIL,BETHANECHOL CHLORIDE Antibiotic Allergy:METFORMIN Blood Thinner:NONE Last PVR:0ML'S Todays PVR:285ML'S Physicist Acoustics Required: No Allergies lisinopril Allergy (Unknown, Verified 03/19/25 10:46) Unknown metformin Allergy (Unknown, Verified 03/19/25 10:46) Unknown nifedipine Allergy (Unknown, Verified 03/19/25 10:46) Unknown epinephrine Adverse Reaction (Intermediate, Verified 03/19/25 10:46) Tachycardia HPI Comments Details: Hao is a pleasant male. He is a patient of Dr Rodrigez. He is seen for the following urologic conditions - lower urinary tract symptoms - incomplete bladder emptying - elevated PSA Six-month follow-up PVR today 250 cc UA 3+ glucose - insulin-dependent diabetic on Jardiance 25 mg Recommend double voiding With regard to Jardiance would recommend switching back to 10 mg. This will decrease his need to urinate and decrease his infection risk for his bladder. Other new drugs include Lexapro. This is having a significant impact on his libido. Previously he was managed well for situational anxiety with low-dose intermittent alprazolam. Would suggest ceasing the Lexapro and going back on the p.r.n. management. GreenLight laser prostate - 04/03 Lower urinary tract symptoms Primarily weakness of stream with incomplete bladder emptying Known large prostate 04/03 - GreenLight laser Postprocedure bethanechol to assist bladder emptying - did not like medication and so it was stopped Elevated PSA/Abnormal VINCENT: He presents for further evaluation of elevated PSA. Prior management is medication with 5AR - stopped secondary to concern regarding libido Laboratory investigations include 07/29 Done at MD , a total PSA evaluation 10 09/29 6.7 25%, 11/27 4.4, 11/27 US - 80gm prostate 120cc residual, 06/29 3.4, 07/31 3.2, 10/02 3.3 Individualized Prostate Cancer Risk Calculator >10% high risk. Symptoms include 09/29 , incomplete emptying, weak stream, nocturia, x 3, and are worsening 12/28 , incomplete emptying, weak stream, nocturia, and are improving. Overall symptoms are mild. Associated conditions diabetes Yes dyslipidemia Yes dysuria No erectile dysfunction Yes Therapeutic plan will be continued surveillance - yearly PSA review. 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, second degree Actinic keratosis Anxiety Social History Patient Tobacco Use Status: Former Tobacco user Review of Systems Const Denies chills and Denies fever(s) Card Reports no additional complaints and Denies syncope Resp Denies cough GI Denies abdominal pain and Denies heartburn Reports as per HPI and Denies change in libido Neuro Denies syncope Psych Denies change in libido Endo Denies change in libido Physical Exam Const General: cooperative, healthy appearing, comfortable and no acute distress Orientation/consciousness: patient oriented x3 HEENT Face and sinus: Yes normal facial exam Mouth: moist mucous membranes Neck Neck: Yes normal visual inspection, Yes full ROM and Yes trachea midline Chest Chest palpation & inspection: normal inspection of the chest Resp Effort & Inspection: normal respiratory effort, able to speak in complete sentences and no respiratory distress GI Inspection: Yes normal to inspection Back/Spine/Pelvis Cervical Spine: normal cervical lordosis Thoracic/Lumbar Spine: thoracic and lumbar spine normal to inspection Skin General skin exam: no rashes or lesions noted Neuro General: patient oriented x3, gait normal, tone normal and moves all extremities Extrem General: Yes normal to inspection and Yes capillary refill normal Office Procedures Post Void Residual Post Residual Void Post Void Residual (PVR): [id number] Void Residual by ultrasound Results AMB Urinalysis, Automated UA Leukoctes 0 Tejal/uL Last Edit by FABRIZIO Saxena on 03/19/25 11:05 UA Nitrite Negative Last Edit by FABRIZIO Saxena on 03/19/25 11:05 UA Urobilinogen 0.2 mg/dL Last Edit by FABRIZIO Saxena on 03/19/25 11:05 UA Protein 0 mg/dL Last Edit by FABRIZIO Saxena on 03/19/25 11:05 UA pH 5.5 Last Edit by Kim Dennis [facility] on 03/19/25 11:05 UA Blood 0 Josue/uL Last Edit [facility] on 03/19/25 11:05 UA Specific [place] 1.010 Last Edit by Kim Dennis [facility] on 03/19/25 11:05 UA Ketone Negative Last Edit by Kim Dennis [facility] on 03/19/25 11:05 UA Bilirubin 0 mg/dL Last Edit by Kim Dennis [facility] on 03/19/25 11:05 UA Glucose 1000 mg/dL Last Edit by Kim Dennis [facility] on 03/19/25 11:05 Results Reviewed Results Reviewed: Laboratory Last Values Urine pH (Auto) 5.5 03/19/25 11:05 Specific [place] (Auto) 1.010 03/19/25 11:05 Urine Protein (Auto) 0 mg/dL 03/19/25 11:05 Glucose (UA)(Auto) 1000 mg/dL 03/19/25 11:05 Urine Ketones (Auto) Negative 03/19/25 11:05 Urine Blood (Auto) 0 Josue/uL 03/19/25 11:05 Urine Nitrite (Auto) Negative 03/19/25 11:05 Urine Bilirubin (Auto) 0 mg/dL 03/19/25 11:05 Urine Urobilinogen (Auto) 0.2 mg/dL 03/19/25 11:05 Leukocyte Esterase (Auto) 0 Tejal/uL 03/19/25 11:05 Assessment & Plan Assessment & Plan (1) BPH w urinary obs/LUTS: Code(s): N40.1 - Benign prostatic hyperplasia with lower urinary tract symptoms; N13.8 - Other obstructive and reflux uropathy Category: Medical (2) Incomplete emptying of bladder due to benign prostatic hyperplasia: Code(s): N40.1 - Benign prostatic hyperplasia with lower urinary tract symptoms; R33.9 - Retention of urine, unspecified Category: Medical Plan Six-month follow-up PVR and UA Orders: Orders AMB Urinalysis Automated Today Z13.9 - Encounter for screening, unspecified Patient Instructions: This note is constructed using voice recognition software. While every effort has been made to ensure accuracy vocational education professional errors may have been included. Imaging studies, laboratory and physical exam results were discussed and reviewed in detail. No major barriers to patient understanding were identified. An opportunity to ask questions regarding the treatment plan was provided. All questions were answered. The patient expressed understanding and agreement with the above treatment plan. The patient is aware they should contact our office by phone for worsening of their current condition or the appearance of new urologic symptoms. Compliance is encouraged with any medications and followup testing that is ordered. It is a privilege to participate in the urologic care of your patient. If you have any questions or concerns regarding treatment for the above conditions, or other urologic issues, please do not hesitate to contact me. The office telephone contact is [phone]. Sincerely, Dr Mayank Mccurdy MD, [facility] - Urology Compassionate Specialist Care for the Genitourinary System Coding Level of Care Code Est Pt Level 3 (07776) Complex EM visit Add On G2211 Diagnoses BPH w urinary obs/LUTS N40.1; N13.8 Incomplete emptying of bladder due to benign prostatic hyperplasia N40.1; R33.9 CPT Codes Post Residual Void - PVR CPT Code: 52541-Cxms Void Residual by ultrasound ([id number])
--- OUTSIDE RECORDS SUMMARY | 2025-03-19 11:28 | XMS_ITS | Clinical Summary ---
Author Organization [facility] Address [address] [place] [address] Phone Care Team Providers Care Graduation Coach Name Role Phone Unavailable Primary Care Provider Unavailabl e Allergies Active Allergy Reactions Criticality Noted Date Comments Varenicline Psychiatric 04/29/2021 Lisinopril Cough Low 06/11/2012 Metformin Other Low 06/11/2012 Nifedipine Hives Low 06/11/2012 Medications Accu-Chek Softclix Lancets Accu-Chek Softclix Lancets Active insulin syringe-needle U-100 1/2 mL 31 gauge x 15/64 syringe BD Veo Insulin Syringe Ultra-Fine 1/2 mL 31 gauge x 15/64 Active carvediloL (COREG) 25 mg tablet 12.5 mg. Take 1/2 tablet twice a day by oral route Active cloNIDine HCL 0.1 mg tablet extended release 12 hr clonidine HCl ER 0.1 mg tablet,extended release,12 hr Take by oral route. Active pen needle, diabetic 31 gauge x 3/16 needle Droplet Pen Needle 31 gauge x 3/16 Active finasteride (PROSCAR) 5 mg tablet finasteride 5 mg tablet Take 1 tablet every day by oral route for 90 days. Active fluticasone propionate (FLONASE) 50 mcg/actuation nasal spray fluticasone propionate 50 mcg/actuation nasal spray,suspension Active insulin glargine (Lantus Solostar U-100 Insulin) 100 unit/mL (3 mL) injection pen Lantus Solostar U-100 Insulin 100 unit/mL (3 mL) subcutaneous pen take 27 units subcutaneous daily Active melatonin 3 mg capsule melatonin 3 mg capsule Take 1 capsule every day by oral route as needed. Active insulin aspart (NovoLOG) 100 unit/mL injection Inject by subcutaneous route. 8 units in AM and 10 units with lunch and dinner Active semaglutide (Ozempic) 1 mg/dose (2 mg/1.5 mL) pen injector Ozempic 1 mg/dose (2 mg/1.5 mL) subcutaneous pen injector inject 1mg subq once a week Active sildenafiL (VIAGRA) 100 mg tablet Take 1 tablet every day by oral route. Active valsartan (DIOVAN) 320 mg tablet Take 1 tablet every day by oral route. Active lifitegrast (Xiidra) 5 % dropperette Xiidra 5 % eye drops in a dropperette Active chlorthalidone (HYGROTON) 25 mg tabletIndicatio ns:edema Take 1 tablet (25 mg total) by mouth 1 (one) time each day. Active cholecalciferol (VITAMIN D-3) 25 mcg (1,000 unit) tablet Take 1 tablet (1,000 Units total) by mouth 1 (one) time each day. Active empagliflozin (JARDIANCE) 25 mg tablet Take 0.5 tablets (12.5 mg total) by mouth 1 (one) time each day in the morning. Active Active Problems Problem Noted Date Diagnosed Date Benign prostatic hyperplasia with lower urinary tract symptoms 08/25/2021 Encounter for subsequent [facility] wellness visit (AWV) in Medicare patient 08/25/2021 Type 2 diabetes mellitus ([facility] V24, [facility] V 28) 09/10/2020 Primary erectile dysfunction 02/27/2018 Obesity with body mass index 30 or greater 10/28 Foot pain 06/14/2016 Mixed hyperlipidemia 03/09/2016 Basal cell carcinoma of skin Depressive disorder Epistaxis Essential hypertension Gastroesophageal reflux disease Class 1 obesity due to exces s calories with serious comorbidity and body mass index (BMI) of 30.0 to 30.9 in adult Sleep apnea Type 2 diabetes mellitus wit hout complication, without long-term current use of insulin ([facility] V24, [facility] V28) Immunizations Name Administration Dates Next Due Influenza Quadravalent, 0.5m l (Fluzone High-dose) 65yo and older 08/16/2022 Influenza Split 07/29/2013 Influenza trivalent, 0.5mL ( Fluzone High-dose) 65yo and older 07/04/2018,05/24/2017,06/14/2016 Moderna SARS-CoV-2 COVID-19, mRNA, LNP-S, preservative free 12/10/2020,11/12/2020 Pneumococcal conjugate 13 va lent (Prevnar 13, PCV13) 2mo and older 06/14/2016 Pneumococcal polysaccharide 23 valent (Pneumovax 23) 2yo and older 09/12/2012 Surgical History Surgery Date Site/Laterality Comments EYE SURGERY Medical History Medical History Date Comments Hyperlipidemia Hypertension Diabetes ([facility] V24, [facility] V28) Sleep apnea Family History Medical History Relation Name Comments Heart disease Father diabetes mellitus Mother Relation Name Status Comments Father Mother Social History Tobacco Use Types Packs/Day Years [...] money to get more. Never true 08/24/2021 [facility] Answer Date Re corded How [...] on file Sexual Orientation Not on file Obstetrics History Last Filed Vital Signs Vital Sign Reading Time Taken Comments Blood Pressure 138/74 09/21/2022 3:08 PM EST Pulse 87 09/21/2022 3:08 PM EST Temperature 36.6 C (97.9 F) 09/21/2022 3:08 PM EST Respiratory Rate 18 09/21/2022 3:08 PM EST Oxygen Saturation 96% 09/21/2022 3:08 PM EST Inhaled Oxygen Concentration - - Weight 81.2 kg (179 lb) 09/21/2022 3:08 PM EST Height 169.5 cm (5' 6.75 ) 09/21/2022 3:08 PM ES T Body Mass Index 28.25 09/21/2022 3:08 PM EST Plan of Treatment Health Maintenance Due Date Last Done Comments Diabetes: Annual Foot Exam 1955 Diabetes: Annual Retina Eye Exam 1955 DTaP,Tdap,and Td Vaccines (1 - Tdap) 1966 Zoster Vaccines (1 of 2) 1966 Diabetes: Annual GFR (Glomerular Filtration Rate) 08/29/2018 08/29/2017 Falls Risk Assessment 10/20/2019 Hepatitis C Screening 10/20/2019 Social Influencers of Health Screening 10/20/2019 Diabetes: Annual Urine Albumin-Creatinine Ratio (uACR) 10/21/2019 Hypertension/CHF/CAD Annual BMP Blood Test 10/21/2019 08/29/2017 COVID-19 Vaccine (3 - Moderna risk series) 01/07/2021 12/10/2020, 11/12/2020 Diabetes: Blood Sugar Control Test (HGBA1C) 03/25/2021 09/25/2020 RSV Immunization Adult Patients (1 - 1-dose 75+ series) 2022 Cholesterol Screening (Lipid Panel) 08/29/2022 08/29/2017 Depression Screening 09/21/2023 09/21/2022, 09/10/20 20 Medicare Annual Wellness Visit 09/21/2023 09/21/2022 Influenza Vaccine (#1) 2025 , 07/04/2018, 05/24/2017, Additional history exists Pneumococcal Vaccine: 50+ Years Completed 06/14/2016, 09/12/2012 HIB Vaccines Aged Out No longer eligi ble based on patient's age to complete this topic HPV Vaccines Aged Out No longer eligi ble based on patient's age to complete this topic Hepatitis A Vaccines Aged Out No long er eligible based on patient's age to complete this topic Hepatitis B Vaccines Aged Out No long er eligible based on patient's age to complete this topic IPV Vaccines Aged Out No longer eligi ble based on patient's age to complete this topic MMR Vaccines Aged Out No longer eligi ble based on patient's age to complete this topic Meningococcal ACWY Vaccine Aged Out N o longer eligible based on patient's age to complete this topic Meningococcal B Vaccine Aged Out No l onger eligible based on patient's age to complete this topic RSV Immunization Patients Under 20 months Aged Out No longer eligible based on patient's age to complete this topic Varicella Vaccines Aged Out No longer eligible based on patient's age to complete this topic Procedures Procedure Name Priority Date/Time Associated Diagnosis Comments HEMOGLOBIN A1C Routine 09/25/2020 DEPRESSION SCREENING Routine 09/10/2020 ANNUAL BMP BLOOD TEST Routine 08/29/2017 LIPID PANEL Routine 08/29/2017 from Last 3 Months or Most Recently Relevant to Health Maintenance Results * (ABNORMAL) Hemoglobin A1c (09/25/2020) Pathologist [facility] Hemoglobin A1C 7.7(A) <=5.7 % Blood Topography not assigned / Unknown [facility] Provider MD LAB BLOOD ORDERABLES Agata l Result * Depression Screening (09/10/2020) Pathologist [facility] Depression Screening abstracted [facility] Provider MD HEALTH MAINTENANCE Final Result * Annual BMP Blood Test (08/29/2017) Pathologist [facility] Annual BMP Blood Test abstracted [facility] Provider MD HEALTH MAINTENANCE Final Result * (ABNORMAL) Lipid panel (08/29/2017) [facility] Triglycerides 88 <=150 mg/dL Cholesterol 102 <=200 mg/dL HDL 35(A) >=40 mg/dL LDL Cholesterol 50 <=100 mg/dL Blood Topography not assigned / Unknown Result [facility] Provider LAB BLOOD ORDERABLES Agata l Result from Last 3 Months or Most Recently Relevant to Health Maintenance Insurance [facility] MEDICARE ADVANTAGE
== END 2025-03-19 11:37 | disposition home or self-care (01) ==
LOC: HO.HUSH 10:32
PROVIDERS: PCP Internal Medicine; Visit Provider Urology
DX: N40.1 Benign prostatic hyperplasia with lower urinary tract symptoms (principal); N13.8 Other obstructive and reflux uropathy; R33.9 Retention of urine, unspecified; Z13.9 Encounter for screening, unspecified
CPT/HCPCS: 99213; G2211

== ENCOUNTER → 2025-03-19 10:31 | Outpatient (BNVA) | payer OTHER, SELFPAY | PROVIDERS: PCP Internal Medicine; Visit Provider Urology | DX: N40.1 Benign prostatic hyperplasia with lower urinary tract symptoms (principal); N13.8 Other obstructive and reflux uropathy; R33.9 Retention of urine, unspecified | CPT/HCPCS: 51798; 81003; 99212 ==

== ENCOUNTER 2025-09-08 15:33 | Outpatient (REF) | payer OTHER, SELFPAY ==
--- OUTSIDE RECORDS SUMMARY | 2020-09-10 | XMS_ITS | Encounter Summary ---
Author Organization [facility] Address [address] [place] [address] Care Team Providers Care Abrading Machine Tender Name Role Phone Zachary Bull MD Primary Care Provider [phone] Encounter Details Date Type Department Care Team (Late st Contact Info) Description 09/10/2020 Hospital Encounter [facility] [address] [place] [id number] Zachary Bull MD [address] [facility] [address] [place] [address] Type 2 diabetes mellitus without complications (CMS/[facility] V24, CMS/[facility] V28) Social History Tobacco Use Types Packs/Day Years Used Date Smoking Tobacco: Former Smokeless Tobacco: Never Alcohol Use Standard Drinks/Week Comments Not Currently 0 (1 standard drink = 0.6 oz pur e alcohol) Alcohol intake: None Housing Instability Answer Date Recorde d Are you worried that in the next 2 months you may not have stable housing? No 08/24/2021 Food Access & Nutrition Answer Date Rec orded Do you have access to a vari ety of food including fruits and vegetables? Yes 08/24/2021 Access to Healthcare Answer Date Record ed Within the last 3 months, ho w many times did you visit the emergency department for your medical care? 0 08/24/2021 Health Literacy Answer Date Recorded How often do you need to hav e someone help you when you read instructions, pamphlets, or other written material from your doctor or pharmacy? Never 08/24/2021 Caregiver: How often do you need to have someone help you when you read instructions, pamphlets, or other written material from your doctor or pharmacy? Not on file 08/24/2021 Financial Risk Answer Date Recorded How hard is it for you to pa y for the very basics like food, housing, medical care, and air conditioning / heating? Patient refused 08/24/2021 Transportation Answer Date Recorded Has the lack of transportati on kept you from meetings, work, or from getting things needed for daily living? No Has the lack of transportati on kept you from medical appointments or from getting medications? No 08/24/2021 Social Isolation Answer Date Recorded How often do you feel lonely or isolated from those around you? Sometimes 08/24/2021 Food Risk Answer Date Recorded Within the past 12 months we worried whether our food would run out before we got money to buy more. Never true 08/24/2021 Within the past 12 months th e food we bought just didn't last and we didn't have money to get more. Never true 08/24/2021 [facility] Literacy Answer Date Re corded How often do you need to hav e someone help you when you read instructions, pamphlets, or other written material from your doctor or pharmacy? Never 08/24/2021 Caregiver: How often do you need to have someone help you when you read instructions, pamphlets, or other written material from your doctor or pharmacy? Not on file 08/24/2021 Sex and Gender Information Value Date Recorded Sex Assigned at Not on file Legal Sex Male 4:12 PM EDT Gender Identity Not on file Sexual Orientation Not on file COVID-19 Exposure Response Date Recorded In the last 10 days, have yo u been in contact with someone who was confirmed or suspected to have Coronavirus/COVID-19? No / Unsure 09/21/2022 2:54 PM EST documented as of this encounter Plan of Treatment Not on file documented as of this encounter Visit Diagnoses Diagnosis Type 2 diabetes mellitus without complications (CMS/HCC V24, CMS/HCC V28) documented in this encounter Care Teams Abrading Machine Tender Relationship Specialty Start Date End Date Zachary Bull MD PCP - General Internal Medicine 04/26/20 12/20/21 documented as of this encounter
--- OUTSIDE RECORDS SUMMARY | 2025-09-08 17:34 | XMS_ITS | Clinical Summary ---
Author Organization [facility] Address [address] [place] [address] Phone Care Team Providers Care Animal Care Taker Name Role Phone Unavailable Primary Care Provider [...] tract symptoms 08/25/2021 Encounter for subsequent [facility] wellness visit (AWV) in Medicare patient 08/25/2021 Type 2 diabetes mellitus 09/10/2020 Primary erectile dysfunction 02/27/2018 Obesity with [...] complication, without long-term current use of insulin Immunizations Immunization Administration Dates Next Due Influenza Quadravalent, 0.5m [...] Medical History Date Comments Hyperlipidemia Hypertension Diabetes ([facility] V24, [facility] V28) Sleep apnea Family History Medical History [...] money to get more. Never true 08/24/2021 [facility] Answer Date Re corded How [...] on file Sexual Orientation Not on file Last Filed Vital Signs Vital Sign Reading [...] Risk Assessment 10/20/2019 Hepatitis C Screening 10/20/2019 Diabetes: Annual Urine Albumin-Creatinine Ratio (uACR) 10/21/2019 Hypertension/CHF/CAD Annual BMP Blood Test 10/21/2019 08/29/2017 COVID-19 Vaccine (3 - Moderna risk series) 01/07/2021 12/10/2020, 11/12/2020 Diabetes: Blood Sugar Control Test (HGBA1C) 03/25/2021 09/25/2020 RSV Immunization Adult Patients (1 - 1-dose 75+ series) 2022 Social Influencers of Health Screening 08/24/2022 08/24/2021 Cholesterol Screening (Lipid Panel) 08/29/2022 08/29/2017 Medicare Annual Wellness Visit 09/21/2023 09/21/2022 Depression Screening 09/11/2024 09/21/2022, 09/10/20 Influenza Vaccine (#1) 2025 , 07/04/2018, 05/24/2017, [...] Maintenance Results * (ABNORMAL) Hemoglobin A1c (09/25/2020) [facility] Hemoglobin A1C 7.7(A) <=5.7 % Blood Topography not assigned / Unknown [facility] Provider LAB BLOOD ORDERABLES Agata l Result * Depression Screening (09/10/2020) Pathologist [facility] Depression Screening abstracted [facility] Provider MD HEALTH MAINTENANCE Final Result * Annual BMP Blood Test (08/29/2017) Pathologist [facility] Annual BMP Blood Test abstracted Result [facility] Provider [place] HEALTH MAINTENANCE Final Result * (ABNORMAL) Lipid panel (08/29/2017) [facility] Triglycerides 88 <=150 mg/dL Cholesterol 102 <=200 mg/dL HDL 35(A) >=40 mg/dL LDL Cholesterol 50 <=100 mg/dL Blood Topography not assigned / Unknown Result [facility] Provider LAB BLOOD ORDERABLES Agata l Result from Last 3 Months or Most Recently Relevant to Health Maintenance Insurance [facility] MEDICARE ADVANTAGE
[2025-09-08 18:13] LABS: Prostate Specific Antigen 8.65 ng/mL (<0.05-4.0)
== END 2025-09-08 15:34 ==
LOC: HO.LAB 15:33
PROVIDERS: PCP Internal Medicine; Visit Provider Urology
DX: R97.20 Elevated prostate specific antigen [PSA] (principal); Z12.5 Encounter for screening for malignant neoplasm of prostate
CPT/HCPCS: 36415; 84153